=== PATIENT | female | born 1950 | race Caucasian/White ===

== ENCOUNTER 2017-07-11 06:32 | Inpatient (IN) | payer OTHER ==
[~2017-07-11] VITALS: Ht 167.6 cm; Wt 65.5 kg
[2017-07-11] VITALS (37 sets, daily range): BP systolic 64–144; BP diastolic 52–80; PULSE 90–126; RESP 18–32; TEMP 96.6–99.3; O2SAT 73–100
[~2017-07-11 06:32] MED LIST: BENA25TA8 PO; CYCL-36 PO; HYDR-3129 PO; HYDR-3366 PO; LORTA5 PO; PROC60TA PO; TETR500C2 PO; VIST50CA PO; WHEEMIS3 XX; Z.0.WALKERFRONT
[2017-07-11] MEDS ORDERED: SODIUM CHLOR 0.9% 1000 ML INJ 1,000 ML IV ONE ×2 (06:45→07:30)
--- NOTE | 2017-07-11 07:03 | PD ---
HPI Chief Complaint: Respiratory Distress Time Seen by Provider: 06:45 Travel History International Travel<30 days: No Contact w/Intl Traveler<30days: No Traveled to known affect area: No History of Present Illness HPI 66-year-old female with history of COPD, hypertension, presents to the ER today brought in by EMS after called stating that his was having respiratory issues. She was found in respiratory distress, GCS 6, and was intubated by EMS for airway protection. They state that she initially sounded like she had rales bilaterally. She is not able to give me any further history. They found that her blood pressure was 70 systolic and started her on IV fluids and Levophed. Modifying Factors: None Associated Signs & Symptoms: Respiratory distress, intubated, altered mental status, hypotension Risk Factors: COPD history PFSH Past Medical History Arthritis: Yes Anxiety: Yes Heart Rhythm Problems: No Cancer: No Cardiovascular Problems: Yes (HTN) Chest Pain: No Congestive Heart Failure: No COPD: Yes (BRONCHITIS) Diabetes: No Diminished Hearing: No Endocrine: No GERD: No Genitourinary: No Hiatal Hernia: No Hypertension: Yes Immune Disorder: No Musculoskeletal: Yes (back pain) Neurologic: No Psychiatric: No Reproductive: No Respiratory: No Thyroid Disease: No Ulcer: Yes Menopausal: Yes Past Surgical History Abdominal Surgery: No Cardiac Surgery: No Ear Surgery: No Endocrine Surgery: No Eye Surgery: No Genitourinary Surgery: No Gynecologic Surgery: Yes (hysterectomy) Hysterectomy: Yes Neurologic Surgery: Yes (BACK SURGERIES) Thoracic Surgery: No Other Surgery: Yes (TENS REMOVED) Social History Alcohol Use: No (RARE) Tobacco Use: Yes Substance Use: No Allergies-Medications (Allergen,Severity, Reaction): Coded Allergies: penicillin G (Unverified Allergy, Intermediate, Hives, 07/11/17) Sulfa (Sulfonamide Antibiotics) (Unverified Allergy, Unknown, 07/11/17) Reported Meds & Prescriptions Reported Meds & Active Scripts Active [place] (Hydrocodone-Acetaminophen) 10-325 Mg Tab 1 Tab PO Q6H PRN Flexeril (Cyclobenzaprine HCl) 10 Mg Tab 10 Mg PO Q12 [place] 10-325 mg (Hydrocodone-Acetaminophen 10-325 mg) 1 Tab Tab 1 Tab PO Q6H PRN Sumycin 500 Mg500 Mg 500 Mg Cap 500 Mg PO QID 7 Days Sumycin 500 Mg500 Mg 500 Mg Cap 500 Mg PO QID 7 Days [place] 5-325 mg (Hydrocodone-Acetaminophen 5-325 mg) 5 mg/325 mg Tab 1 Tab PO Q6HR PRN Wheelchair (Miscellaneous Medication) Mis 1 Units XX Walker Front Wheel (Z.0.walkerfront) Device 1 Unit Vistaril 50 MG CAP (Hydroxyzine Pamoate) 50 Mg Cap 50 Mg PO Q6 PRN Procardia Xl60 M1 60 Mg Tab 60 Mg PO DAILY Reported Benadryl 25 mg tab (Diphenhydramine HCl) 25 Mg Tab 25 Mg PO Q6H PRN Review of Systems ROS Limitations: Intubated Physical Exam Narrative GENERAL: Well-developed elderly white female patient who is intubated, in severe distress. SKIN: Focused skin assessment warm/dry. HEAD: Atraumatic. Normocephalic. EYES: Pupils equal and round. No scleral icterus. No injection or drainage. ENT: No nasal bleeding or discharge. Mucous membranes pink and moist. NECK: Trachea midline. No JVD. CARDIOVASCULAR: Regular rate and rhythm. No murmur appreciated. RESPIRATORY: Notable accessory muscle use. Decreased breath sounds throughout bilaterally, no wheezes or crackles identified. GASTROINTESTINAL: Abdomen soft, non-tender, nondistended. Hepatic and splenic margins not palpable. MUSCULOSKELETAL: No obvious deformities. No clubbing. No cyanosis. No edema. NEUROLOGICAL: Unresponsive. Intubated. PSYCHIATRIC: Unresponsive, intubated Data Data Last Documented VS Vital Signs Date Time Temp Pulse Resp B/P (MAP) Pulse Ox O2 Delivery O2 Flow Rate FiO2 07/11/17 06:57 18 07/11/17 06:57 95 Ventilator 07/11/17 06:57 126 100/68 (79) 07/11/17 06:37 96.6 07/11/17 06:33 100 Orders Orders Complete Blood Count With Diff (07/11/17 06:45) Comprehensive Metabolic Panel (07/11/17 06:45) Prothrombin Time / Inr (Pt) (07/11/17 06:45) Act Partial Throm Time (Ptt) (07/11/17 06:45) Lactic Acid Sepsis Protocol (07/11/17 06:45) Ckmb (Isoenzyme) Profile (07/11/17 06:45) Troponin I (07/11/17 06:45) Urinalysis - C+S If Indicated (07/11/17 06:45) Blood Culture (07/11/17 06:45) Chest, Single Ap (07/11/17 06:45) Arterial Blood Gas (Abg) (07/11/17 06:45) Blood Glucose (07/11/17 06:45) Ecg Monitoring (07/11/17 06:45) Iv Access Insert/Monitor (07/11/17 06:45) Oximetry (07/11/17 06:45) Oxygen Administration (07/11/17 06:45) Sodium Chlor 0.9% 1000 Ml Inj (Ns 1000 M (07/11/17 06:45) B-Type Natriuretic Peptide (07/11/17 06:45) Labs Laboratory Tests Test 07/11/17 06:50 07/11/17 07:10 White Blood Count 60.4 TH/MM3 Red Blood Count 3.77 MIL/MM3 Hemoglobin 9.8 GM/DL Hematocrit 31.0 % Mean Corpuscular Volume 82.4 FL Mean Corpuscular Hemoglobin 26.1 PG Mean Corpuscular Hemoglobin Concent 31.7 % Red Cell Distribution Width 18.0 % Platelet Count 807 TH/MM3 Mean Platelet Volume 7.7 FL Neutrophils (%) (Auto) 95.8 % Lymphocytes (%) (Auto) 2.4 % Monocytes (%) (Auto) 1.6 % Eosinophils (%) (Auto) 0.0 % Basophils (%) (Auto) 0.2 % Neutrophils # (Auto) 57.9 TH/MM3 Lymphocytes # (Auto) 1.4 TH/MM3 Monocytes # (Auto) 0.9 TH/MM3 Eosinophils # (Auto) 0.0 TH/MM3 Basophils # (Auto) 0.1 TH/MM3 CBC Comment AUTO DIFF MDM Medical Decision Making Medical Screen Exam Complete: Yes Emergency Medical Condition: Yes Medical Record Reviewed: Yes Interpretation(s) EKG shows sinus tachycardia at a heart rate 20 bpm with no signs of acute ST-T changes. Differential Diagnosis Respiratory distress, intubated, hypotension: Sepsis versus pneumonia versus COPD exacerbation versus CHF versus metabolic issues Narrative Course Considering hypotension, IV fluids was initiated in the ER 500 cc with further to follow as necessary. Chest x-ray was done to confirm ET tube and evaluated pulmonary status. Patient had been put on a respirator with PEEP. Initial lab work was ordered. Patient was reevaluated at 7:05 AM and blood pressure is improving, saturations are 100%. A review of patient's chest x-ray shows that ET tube is in place. There is bilateral fluffy basilar infiltrates and due to concerns of possible CHF and improved blood pressure, IV fluids were held after 600 cc. Case was discussed with Dr. Newberry who takes over the case. Aggregate critical care time was 25 minutes. Time to perform other separately billable procedures was not included in the critical care time. My time did not include minutes spent treating any other patients simultaneously or on activities that did not directly contribute to the patient's treatment. The services I provided to this patient were to treat and/or prevent clinically significant deterioration that could result in: Respiratory distress, respiratory arrest, septic shock, I provided critical care services requiring my management, as noted below: Chart data review, documentation time, medication orders and management, vital sign assessments/reviewing monitor data, ordering and reviewing lab tests, ordering and interpreting/reviewing x-rays and diagnostic studies, care of the patient and discussion of the patient with the admitting physicians. Procedures Procedure Narrative Due to difficulty of access and loss of access, left EJ was placed by me with 20 -gauge IV. Left EJ area was cleaned and prepped with ChloraPrep, patient was placed in a slight Trendelenburg position, and 20-gauge IV needle used to access. Patient tolerated procedure well. Diagnosis Primary Impression: Respiratory distress Additional Impression: Endotracheally intubated Admitting Information Admitting Physician Requests: Admit James Valdez MD Jul 11, 2017 07:03
[2017-07-11 07:08] LABS: AUTOMATED NEUTROPHIL # 57.9 TH/MM3 (1.8-7.7); BASOPHIL # 0.1 TH/MM3 (0-0.2); BASOPHIL % 0.2 % (0.0-2.0); LYMPH % 2.4 % (9.0-44.0); LYMPHOCYTE # 1.4 TH/MM3 (1.0-4.8); MEAN CELL VOLUME 82.4 FL (80.0-100.0); MEAN CORPUSCULAR HEMOGLOBIN 26.1 PG (27.0-34.0); MEAN CORPUSCULAR HGB CONC 31.7 % (32.0-36.0); MONO % 1.6 % (0.0-8.0); NEUT % 95.8 % (16.0-70.0); PLATELET COUNT 807 TH/MM3 (150-450); RED BLOOD COUNT 3.77 MIL/MM3 (4.00-5.30); WHITE BLOOD COUNT 60.4 TH/MM3 (4.0-11.0)
[2017-07-11 07:10] LABS: HEMO FLAGS AUTO DIFF
[2017-07-11 07:15] LABS: INTERNATIONAL NORMALIZED RATIO 1.5 RATIO; PROTHROMBIN TIME - PATIENT 16.6 SEC (9.8-11.6)
[2017-07-11] MEDS ORDERED: CEFEPIME INJ 2,000 MG in SODIUM CHLORIDE 0.9% INJ 100 ML IV STA (07:17)
[2017-07-11] MEDS ORDERED: AZITHROMYCIN INJ 500 MG in SODIUM CHLOR 0.9% 250 ML INJ 250 ML IV STA (07:17)
--- NOTE | 2017-07-11 07:20 | RADRPT ---
EXAM DATE/TIME: 07/11/2017 07:04 [facility] COMPARISON: CHEST SINGLE AP, November 07, 2015, 15:56. INDICATIONS : Post intubation. Short of breath. MEDICAL HISTORY : Non-responsive. SURGICAL HISTORY : Non-responsive. ENCOUNTER: Initial ACUITY: 1 day PAIN SCORE: Non-responsive. LOCATION: Bilateral chest FINDINGS: Portable AP view of the chest demonstrates a normal-sized cardiac silhouette. The endotracheal tube d istal tip is at the aortic knob level measuring approximately 6.3 cm from the karri. There is left l ower lung zone airspace consolidation and airspace consolidation in the right mid and lower lung zone . There is also a right pleural-based opacity inferiorly. No pneumothorax is visualized. There are ol d healed left rib fractures. Cervical spine hardware is partially visualized. CONCLUSION: 1. Endotracheal tube in appropriate position with tip measuring 6.3 cm from the karri. 2. Small right pleural effusion with bilateral lower lung zone predominant airspace consolidation, ri ght greater than left. Moustapha Mancuso MD on July 11, 2017 at 7:17 Board Certified Radiologist. This report was verified electronically.
[2017-07-11 07:24] LABS: ALT (GPT) 9 U/L (10-53); ANION GAP 16 MEQ/L (5-15); AST (GOT) 27 U/L (15-37); BICARBONATE 24.7 MEQ/L (21.0-32.0); BLOOD UREA NITROGEN 55 MG/DL (7-18); CHLORIDE 87 MEQ/L (98-107); GLOMERULAR FILTRATION RATE 19 ML/MIN (>89); POTASSIUM 4.4 MEQ/L (3.5-5.1); SODIUM (NA) 128 MEQ/L (136-145)
[2017-07-11 07:27] LABS: ALKALINE PHOSPHATASE 155 U/L (45-117); TOTAL BILIRUBIN ADULT 0.7 MG/DL (0.2-1.0)
[2017-07-11] MEDS ORDERED: LEVOFLOXACIN 500 MG PREMIX INJ 100 ML IV ONE (07:30)
[2017-07-11] MEDS ORDERED: VANCOMYCIN INJ 1,000 MG in SODIUM CHLOR 0.9% 250 ML INJ 250 ML IV ONE (07:30)
[2017-07-11] MEDS ORDERED: PIPERACIL-TAZO 2.25 GM PREMIX 50 ML IV ONE (07:30)
[2017-07-11 07:34] LABS: BACTERIA, URINE RARE /hpf; BLOOD, URINE NEG (NEG); GLUCOSE,URINE NEG (NEG); HYALINE CAST, URINE 2 /lpf (RARE); KETONE, URINE NEG (NEG); MUCUS URINE FEW /lpf (OCC); NITRITE,URINE NEG (NEG); SQUAMOUS EPITHELIAL CELL URINE 1 /hpf (0-5); URINE COLOR YELLOW (YELLW/STRAW)
[2017-07-11 07:35] LABS: COMMENT (UR) CATH-CULTURE IND; CULTURE IF INDICATED CATH CULTURE IND
[2017-07-11 07:40] LABS: BANDS 12 % (0-6); METAMYELOCYTES 3 % (0-1); MYELOCYTES 1 % (0-0); POLYS (SEG NEUTROPHILS) 75 % (16-70); WBC DIFF SAMPLE 100
--- NOTE | 2017-07-11 07:40 | PD ---
Data Data Last Documented VS Vital Signs Date Time Temp Pulse Resp B/P (MAP) Pulse Ox O2 Delivery O2 Flow Rate FiO2 07/11/17 08:05 112 18 96/58 (71) 100 Auto-Vent 07/11/17 07:52 100 07/11/17 06:37 96.6 Orders Orders Complete Blood Count With Diff (07/11/17 06:45) Comprehensive Metabolic Panel (07/11/17 06:45) Prothrombin Time / Inr (Pt) (07/11/17 06:45) Act Partial Throm Time (Ptt) (07/11/17 06:45) Lactic Acid Sepsis Protocol (07/11/17 06:45) Ckmb (Isoenzyme) Profile (07/11/17 06:45) Troponin I (07/11/17 06:45) Urinalysis - C+S If Indicated (07/11/17 06:45) Blood Culture (07/11/17 06:45) Chest, Single Ap (07/11/17 06:45) Arterial Blood Gas (Abg) (07/11/17 06:45) Blood Glucose (07/11/17 06:45) Ecg Monitoring (07/11/17 06:45) Iv Access Insert/Monitor (07/11/17 06:45) Oximetry (07/11/17 06:45) Oxygen Administration (07/11/17 06:45) Sodium Chlor 0.9% 1000 Ml Inj (Ns 1000 M (07/11/17 06:45) B-Type Natriuretic Peptide (07/11/17 06:45) Cefepime Inj (Maxipime Inj) (07/11/17 07:17) Azithromycin Inj (Zithromax Inj) (07/11/17 07:17) Ed Poc Ultrasound (07/11/17 ) Vancomycin Inj (Vancomycin Inj) (07/11/17 07:30) Levofloxacin 500 Mg Premix Inj (Levaquin (07/11/17 07:30) Piperacil-Tazo 2.25 Gm Premix (Zosyn 2.2 (07/11/17 07:30) Legionella Igg & Igm Abs (07/11/17 07:25) Sodium Chlor 0.9% 1000 Ml Inj (Ns 1000 M (07/11/17 07:30) Legionella Urinary Antigen (07/11/17 07:25) Urine Culture (07/11/17 07:10) Electrocardiogram (07/11/17 06:46) Pneumococcal Urinary Antigen (07/11/17 08:48) Legionella Urinary Antigen (07/11/17 08:48) Cbc No Diff, Includes Plts (07/12/17 05:00) Cbc No Diff, Includes Plts (07/13/17 05:00) Cbc No Diff, Includes Plts (07/14/17 05:00) Cbc No Diff, Includes Plts (07/15/17 05:00) Cbc No Diff, Includes Plts (07/16/17 05:00) Cbc No Diff, Includes Plts (07/17/17 05:00) Cbc No Diff, Includes Plts (07/18/17 05:00) Basic Metabolic Panel (Bmp) (07/12/17 05:00) Basic Metabolic Panel (Bmp) (07/13/17 05:00) Basic Metabolic Panel (Bmp) (07/14/17 05:00) Basic Metabolic Panel (Bmp) (07/15/17 05:00) Basic Metabolic Panel (Bmp) (07/16/17 05:00) Basic Metabolic Panel (Bmp) (07/17/17 05:00) Basic Metabolic Panel (Bmp) (07/18/17 05:00) Restraints Non-Violent ALEXIS.Q3H (07/11/17 08:48) Neurological Rass Scale ALEXIS.Q2H (07/11/17 08:48) Propofol 1000 Mg/100 Ml Inj (Diprivan 10 (07/11/17 09:00) RASS (07/11/17 08:48) ^ Infusion (07/11/17 08:48) Fentanyl Drip (Fentanyl Drip) (07/11/17 09:00) Neurological Rass Scale Q30MX2,Q2HX4,Q4H (07/11/17 08:48) Chlorhexidine 0.12% Liq (Peridex 0.12% L (07/11/17 20:00) Resp Ventilation- Volume (07/11/17 ) Ventilator Weaning Readiness ALEIXS.DAILY@0800 (07/11/17 08:48) Elevate Head Of Bed (07/11/17 08:48) Inpatient Certification (07/11/17 08:48) Bedside Glucose ALEXIS.Q6H (07/11/17 08:48) Blood Glucose Goal (Criteria) (07/11/17 08:48) Hypoglycemia 51 - 69 Mg/Dl (07/11/17 08:48) Hypoglycemia 50 Mg/Dl Or < (07/11/17 08:48) Notify Dr: Other (07/11/17 08:48) Dextrose 50% In Donal (Vial) Inj (D50w (Vi (07/11/17 09:00) Insulin Human Reg Supp Scale (Novolin R (07/11/17 12:00) Neuro Checks ALEXIS.Q1H (07/11/17 08:48) Albuterol-Ipratropium Neb (Duoneb Neb) (07/11/17 10:00) Albuterol-Ipratropium Neb (Duoneb Neb) (07/11/17 09:00) Chest, Single Ap (07/12/17 06:00) Urinary Catheter Management ALEXIS.Q1H (07/11/17 08:48) Tylenol (Acetaminophen) (07/11/17 08:48) Salicylates (Aspirin) (07/11/17 08:48) Alcohol (Ethanol) (07/11/17 08:48) Drug Screen,Ur W/Confirmation (07/11/17 08:48) Code Status (07/11/17 08:48) Vital Signs (Adult) ALEXIS.Q1H (07/11/17 08:48) Activity Bed Rest (07/11/17 08:48) Elevate Head Of Bed (07/11/17 08:48) ^ Orogastric Tube (07/11/17 08:48) Diet Npo (07/11/17 Breakfast) Sodium Chlor 0.9% 1000 Ml Inj (Ns 1000 M (07/11/17 08:48) Famotidine Inj (Pepcid Inj) (07/11/17 10:00) Ondansetron Inj (Zofran Inj) (07/11/17 09:00) Manager Hematology / Telemetry ALEXIS.Q8H (07/11/17 08:48) Scd Bilateral/Knee High ALEXIS.BID (07/11/17 08:48) ^ Initiate Protocol (07/11/17 08:48) Instruction (07/11/17 08:48) Misc Nursing Information (07/11/17 09:00) Chlorhexidine 2% Cloth (Chlorhexidine 2% (07/12/17 04:00) Chlorhexidine 2% Cloth (Chlorhexidine 2% (07/11/17 09:00) Mrsa Pcr Surveillance (07/11/17 08:48) Docusate Sodium-Senna (Pallavi-Colace) (07/11/17 10:00) Labs Laboratory Tests Test 07/11/17 06:50 07/11/17 07:10 07/11/17 07:33 07/11/17 08:25 White Blood Count 60.4 TH/MM3 Red Blood Count 3.77 MIL/MM3 Hemoglobin 9.8 GM/DL Hematocrit 31.0 % Mean Corpuscular Volume 82.4 FL Mean Corpuscular Hemoglobin 26.1 PG Mean Corpuscular Hemoglobin Concent 31.7 % Red Cell Distribution Width 18.0 % Platelet Count 807 TH/MM3 Mean Platelet Volume 7.7 FL Neutrophils (%) (Auto) 95.8 % Lymphocytes (%) (Auto) 2.4 % Monocytes (%) (Auto) 1.6 % Eosinophils (%) (Auto) 0.0 % Basophils (%) (Auto) 0.2 % Neutrophils # (Auto) 57.9 TH/MM3 Lymphocytes # (Auto) 1.4 TH/MM3 Monocytes # (Auto) 0.9 TH/MM3 Eosinophils # (Auto) 0.0 TH/MM3 Basophils # (Auto) 0.1 TH/MM3 CBC Comment AUTO DIFF Differential Total Cells Counted 100 Neutrophils % (Manual) 75 % Band Neutrophils % 12 % Lymphocytes % 5 % Monocytes % 4 % Neutrophils # (Manual) 55.0 TH/MM3 Metamyelocytes 3 % Myelocytes 1 % Nucleated Red Blood Cells 1 /100 WBC Differential Comment FINAL DIFF MANUAL Toxic Granulation 1+ Toxic Vacuolation PRESENT Platelet Estimate HIGH Platelet Morphology Comment NORMAL Polychromasia 2.2 % Prothrombin Time 16.6 SEC Prothromb Time International Ratio 1.5 RATIO Activated Partial Thromboplast Time 30.0 SEC Blood Urea Nitrogen 55 MG/DL Creatinine 2.57 MG/DL Random Glucose 116 MG/DL Total Protein 6.8 GM/DL Albumin 1.6 GM/DL Calcium Level 8.2 MG/DL Alkaline Phosphatase 155 U/L Aspartate Amino Transf (AST/SGOT) 27 U/L Alanine Aminotransferase (ALT/SGPT) 9 U/L Total Bilirubin 0.7 MG/DL Sodium Level 128 MEQ/L Potassium Level 4.4 MEQ/L Chloride Level 87 MEQ/L Carbon Dioxide Level 24.7 MEQ/L Anion Gap 16 MEQ/L Estimat Glomerular Filtration Rate 19 ML/MIN Lactic Acid Level 6.7 mmol/L Total Creatine Kinase 29 U/L Troponin I 0.19 NG/ML B-Type Natriuretic Peptide 397 PG/ML Urine Color YELLOW Urine Turbidity CLOUDY Urine pH 5.0 Urine Specific [place] 1.018 Urine Protein TRACE mg/dL Urine Glucose (UA) NEG mg/dL Urine Ketones NEG mg/dL Urine Occult Blood NEG Urine Nitrite NEG Urine Bilirubin NEG Urine Urobilinogen LESS THAN 2.0 MG/DL Urine Leukocyte Esterase NEG Urine RBC 1 /hpf Urine WBC 1 /hpf Urine Squamous Epithelial Cells 1 /hpf Urine Amorphous Sediment MANY Urine Bacteria RARE /hpf Urine Hyaline Casts 2 /lpf Urine Mucus FEW /lpf Microscopic Urinalysis Comment CATH-CULTURE IND Urine Opiates Screen POS Urine Barbiturates Screen NEG Urine Amphetamines Screen NEG Urine Benzodiazepines Screen NEG Urine Cocaine Screen NEG Urine Cannabinoids Screen NEG Blood Gas Puncture Site RT RADIAL Blood Gas Patient Temperature 98.6 Blood Gas HCO3 26 mmol/L Blood Gas Base Excess -0.5 mmol/L Blood Gas Oxygen Saturation 91 % Arterial Blood pH 7.24 Arterial Blood Partial Pressure CO2 64 mmHg Arterial Blood Partial Pressure O2 84 mmHG Arterial Blood Oxygen Content 11.4 Vol % Arterial Blood Carboxyhemoglobin 1.2 % Arterial Blood Methemoglobin 0.9 % Blood Gas Hemoglobin 8.8 G/DL Oxygen Delivery Device VENTILATOR Blood Gas Ventilator Setting PRVC 18/450/0.9IT/8+ Blood Gas Inspired Oxygen 100 % [facility] Supervised Visit with JORDAN: No Narrative Course Patient care assumed from Dr. Charles at 0700, this is a 66-year-old female I spoke to the to get most of her history, he states for the past few days she' s been having a lot of coughing congestion and this had problems of being "bronchial" in the past. She does have a history of smoking. He states that she awoke this morning with complaints that she could not breathe. According to Dr. Charles EMS arrived on scene and found the patient evidently GCS of 6 intubated her in route to the hospital. I arrived to find patient appearing toxic, she is intubated and mechanically ventilated. She is not on sedation and is a GCS of 3. She's had approximately 10 cc of urine output in the emergency department. I performed a bedside ultrasound showing the patient an EF probably greater than 65%. There is no right heart congestion, her IVC is open however collapses with inspiration. The patient did receive a liter of fluid per EMS, did receive an additional liter and a half of fluid in this emergency department. Initially she had orders for Rocephin and azithromycin, these were broadened to vancomycin and Zosyn and Levaquin after discussion with Dr. Tijerina. The patient's ABG shows combined respiratory failure with PCO2 of 63.5 a pH is 7.23 and a PO2 of 83.9 on 100% FiO2 a rate of 18 and a tidal volume of 450. The total line was increased to 500. Lactic acid of 6.7, white blood cell count of 60,000. Creatinine elevated to 2.67. Putting it altogether this patient has elements of septic shock likely from pneumonia. She's had very little urine output, blood pressure has been maintained with maps greater than 60 in the emergency department without pressors. This is a very critically ill patient. I conveyed this to the . Patient was again discussed with Dr. Tijerina who will admit to the hospital. At 09 30 the patient did have a status change and is now becoming more purposeful in her movements attempting to self extubate, blood pressure and heart rate are improving. She was given a dose of etomidate which did bring her blood pressure down but still maps are maintaining greater than 65. Her is now at the bedside and I informed him of the above conversations and my thought process. Critical Care Narrative Aggregate critical care time was 65 minutes. Time to perform other separately billable procedures was not included in the critical care time. My time did not include minutes spent treating any other patients simultaneously or on activities that did not directly contribute to the patient's treatment. The services I provided to this patient were to treat and/or prevent clinically significant deterioration that could result in: , disability, organ failure I provided critical care services requiring my management, as noted below: Chart data review, documentation time, medication orders and management, vital sign assessments/reviewing monitor data, ordering and reviewing lab tests, ordering and interpreting/reviewing x-rays and diagnostic studies, care of the patient and discussion of the patient with the admitting physicians. Procedures Procedure Narrative BEDSIDE ULTRASOUND: Views were obtained subxiphoid of the heart showing EF likely greater than 65%. Almost complete left ventricular collapse at end systole. No right ventricular dilation. IVC full but collapses completely during inspiration. Interpretation is likely fluid depletion secondary to severe sepsis. Diagnosis Primary Impression: Respiratory distress Additional Impression: Endotracheally intubated Admitting Information Admitting Physician Requests: Admit Condition: Critical Migel Newberry MD Jul 11, 2017 07:40
[2017-07-11 07:41] LABS: CORRECTED NUCLEATED RBC 1 /100 WBC (0-0); PLATELET ESTIMATE SMEAR HIGH (NORMAL); PLATELET MORPHOLOGY NORMAL (NORMAL); SCAN/DIFF FINAL DIFF MANUAL; TOXIC GRANULATION 1+ (NORMAL); TOXIC VACUOLATION PRESENT (NONE SEEN)
[2017-07-11 07:43] LABS: CREATINE KINASE 29 U/L (26-192); POLYCHROMASIA 2.2 % (0.0-1.9)
[2017-07-11 07:44] LABS: BLOOD GAS BASE EXCESS -0.5 mmol/L (-2-2); BLOOD GAS CARBOXYHEMOGLOBIN 1.2 % (0-4); BLOOD GAS HCO3 26 mmol/L (22-26); BLOOD GAS METHEMOGLOBIN 0.9 % (0-2); BLOOD GAS O2 HGB SATURATION 91 % (90-100); BLOOD GAS OXYGEN CONTENT 11.4 Vol % (12.0-20.0); BLOOD GAS PCO2 64 mmHg (38-42); BLOOD GAS PO2 84 mmHG (61-120); BLOOD GAS TOTAL HGB 8.8 G/DL (12.0-16.0); TEMP CORR TO 98.6
[2017-07-11 07:45] LABS: CRITICAL VALUE YES; DRAW SITE RT RADIAL; FIO2 100 %; NUMBER OF ARTERIAL PUNCTURES 2; OXYGEN DEVICE VENTILATOR; STAT YES; ULNAR PULSE PRESENT; VENT SETTINGS PRVC 18/450/0.9IT/8+
[2017-07-11 09:00] LABS: LACTIC ACID GHOST NOT REPORTABLE
[2017-07-11] MEDS ORDERED: MISCELLANEOUS NURSING INFORMATION XX SCH (09:00)
[2017-07-11] MEDS ORDERED: DEXTROSE 50% IN WATER 50 ML VIAL(D50) IV PUSH PRN (09:00)
[2017-07-11] MEDS ORDERED: Vancomycin Consult Pharmacy 1 EA OTHER SCH (09:00)
[2017-07-11] MEDS ORDERED: CHLORHEXIDINE GLUCONATE 2 % 1 PACK (2 CLOTHS) TOP PRN (09:00)
[2017-07-11] MEDS: fentaNYL DRIP 250 ML IV SCH (09:20)
[2017-07-11] MEDS: RESP: ALBUTEROL 2.5 MG/IPRATROPIUM 0.5 MG NEB (SCH) INH ×3 (09:23→19:21)
[2017-07-11] MEDS ORDERED: ETOMIDATE 20 MG/10 ML VIAL ONE (09:28)
[2017-07-11] MEDS ORDERED: ETOMIDATE 20 MG/10 ML VIAL IV PUSH ONE (09:30)
[2017-07-11] MEDS: SODIUM CHLOR 0.9% 1000 ML INJ 1,000 ML IV SCH ×2 (09:39→17:13)
[2017-07-11] MEDS: DOCUSATE SODIUM 50 MG/SENNA 8.6 MG TAB PO SCH ×2 (10:00→21:30)
[2017-07-11] MEDS: FAMOTIDINE 20 MG/2 ML VIAL IV PUSH SCH ×2 (10:17→21:30)
[2017-07-11 10:45] LABS: ACETAMINOPHEN LESS THAN 2.0 MCG/ML (10.0-30.0)
[2017-07-11 10:48] LABS: ALCOHOL LESS THAN 3 MG/DL (0-5)
[2017-07-11] MEDS: INSULIN NovoLIN REGULAR SUPPLEMENTAL SCALE SQ SCH ×2 (11:26→17:13)
--- NOTE | 2017-07-11 14:02 | EKG ---
Date Performed: 07/11/2017 Time Performed: 06:46:10 PTAGE: 66 years EKG: SINUS TACHYCARDIA ABNORMAL RHYTHM ECG PREVIOUS TRACING : 10/27/2015 11.38 Since prior tracing, sinus rate has increased. DOCTOR: Luis Saleem Interpretating Date/Time 07/11/2017 14:01:24
--- NOTE | 2017-07-11 16:19 | RADRPT ---
EXAM DATE/TIME: 07/11/2017 15:48 [facility] COMPARISON: CHEST SINGLE AP, July 11, 2017, 7:04. INDICATIONS : Central line placement. MEDICAL HISTORY : Hypertension. Chronic obstructive pulmonary disease. SURGICAL HISTORY : Hysterectomy. Lumbar surgery. ENCOUNTER: Subsequent ACUITY: 1 day PAIN SCORE: Non-responsive. LOCATION: Bilateral cranial FINDINGS: Single AP view of the chest. Endotracheal tube remains in place. Left subclavian central venous emma ter is now seen with the tip in the mid to distal SVC. Nasogastric tube is in place with the tip belo w the [id number] of the radiograph. Bilateral confluent pulmonary opacities again seen and unchang ed. No evidence of pneumothorax. CONCLUSION: Left subclavian central venous catheter and nasogastric tube now seen. No change in bilateral pulmona ry opacities. Nam Purcell MD on July 11, 2017 at 16:14 Board Certified Radiologist. This report was verified electronically.
[2017-07-11] MEDS: PIPERACIL-TAZO 2.25 GM PREMIX 50 ML IV SCH (17:12)
[2017-07-11] MEDS: PROPOFOL 1000 MG/100 ML INJ 100 ML IV SCH (18:46)
[2017-07-11] MEDS: NOREPINEPHRINE 4 MG/D5W 250 ML IV PRN (19:00)
--- NOTE | 2017-07-11 19:34 | HHI.HP ---
HPI Service Critical Care Medicine Primary Care Physician Unknown Admission Diagnosis Septic Shock, Hypoxic/Hypercapneic respiratory failure, PNA. Diagnosis: Travel History International Travel<30 Days: No Contact w/Intl Traveler <30 Da: No Traveled to Known Affected Are: No History of Present Illness Patient seen and examined in the AM around 07:30. Delayed note entry. This is a 66yF 66-year-old female with history of COPD, hypertension, presents to the ER today brought in by EMS after called stating that his was having respiratory issues. She was found in respiratory distress, GCS 6, and was intubated by EMS for airway protection. They state that she initially sounded like she had rales bilaterally. She is not able to give me any further history. They found that her blood pressure was 70 systolic and started her on IV fluids and Levophed. Modifying Factors: None Associated Signs & Symptoms: Respiratory distress, intubated, altered mental status, hypotension Risk Factors: COPD history Review of Systems ROS Limitations: Clinical Condition, Intubated, Altered Mental Status, Unresponsive Past Family Social History Allergies: Coded Allergies: penicillin G (Unverified Allergy, Intermediate, Hives, 07/11/17) Sulfa (Sulfonamide Antibiotics) (Unverified Allergy, Unknown, 07/11/17) Past Medical History Arthritis Anxiety Hypertension Bronchitis COPD Back pain Ulcers Past Surgical History Hysterectomy Back surgeries TENS unit removed from back Reported Medications Unknown unobtainable secondary to the clinical condition of the patient Active Ordered Medications See MAR Family History Unknown and unobtainable secondary to the clinical condition the patient Social History Rare EtOH use, positive tobacco use. Physical Exam Vital Signs Vital Signs Date Time Temp Pulse Resp B/P (MAP) Pulse Ox O2 Delivery O2 Flow Rate FiO2 07/11/17 18:00 116 07/11/17 16:00 117 07/11/17 16:00 98.5 117 27 83/52 (62) 97 Automatic Cuff 07/11/17 14:48 94 100 07/11/17 14:00 110 07/11/17 12:00 99.0 110 24 97/60 (72) 92 07/11/17 12:00 109 07/11/17 11:06 07/11/17 10:55 84 100 07/11/17 10:51 96 100 07/11/17 10:32 106 18 90/63 (72) 100 Auto-Vent 07/11/17 09:39 113 18 81/58 (66) 100 Auto-Vent 07/11/17 09:00 112 18 129/73 (91) 100 Auto-Vent 07/11/17 08:05 112 18 96/58 (71) 100 Auto-Vent 07/11/17 07:52 96 100 07/11/17 07:33 120 18 100 07/11/17 06:57 18 07/11/17 06:57 95 Ventilator 07/11/17 06:57 126 100/68 (79) 07/11/17 06:37 96.6 125 18 102/70 (81) 95 07/11/17 06:33 96 100 Physical Exam GENERAL: Middle-aged female, appears much older than stated age. Frail. Critically ill. HEENT: Normocephalic. Atraumatic. Pupils equal, round, reactive, conjugate. Mucous membranes are dry NECK: Trachea is midline. There is no JVD. CHEST: Endotracheal tube in place. PRVC. 100% FiO2. Coarse rales throughout all lung meek. CARDIOVASCULAR: Tachycardic rate, regular rhythm. Sinus by telemetry. No appreciable murmurs. ABDOMEN: Soft, nontender, nondistended. No guarding. MUSCULOSKELETAL: Pulses 2+. No peripheral edema. NEUROLOGICAL: RASS -4. Withdrawals to pain. Does not follow commands. No focal deficits. Laboratory Laboratory Tests Test 07/11/17 06:50 07/11/17 07:10 07/11/17 07:33 07/11/17 08:25 White Blood Count 60.4 Red Blood Count 3.77 Hemoglobin 9.8 Hematocrit 31.0 Mean Corpuscular Volume 82.4 Mean Corpuscular Hemoglobin 26.1 Mean Corpuscular Hemoglobin Concent 31.7 Red Cell Distribution Width 18.0 Platelet Count 807 Mean Platelet Volume 7.7 Neutrophils (%) (Auto) 95.8 Lymphocytes (%) (Auto) 2.4 Monocytes (%) (Auto) 1.6 Eosinophils (%) (Auto) 0.0 Basophils (%) (Auto) 0.2 Neutrophils # (Auto) 57.9 Lymphocytes # (Auto) 1.4 Monocytes # (Auto) 0.9 Eosinophils # (Auto) 0.0 Basophils # (Auto) 0.1 CBC Comment AUTO DIFF Differential Total Cells Counted 100 Neutrophils % (Manual) 75 Band Neutrophils % 12 Lymphocytes % 5 Monocytes % 4 Neutrophils # (Manual) 55.0 Metamyelocytes 3 Myelocytes 1 Nucleated Red Blood Cells 1 Differential Comment FINAL DIFF MANUAL Toxic Granulation 1+ Toxic Vacuolation PRESENT Platelet Estimate HIGH Platelet Morphology Comment NORMAL Polychromasia 2.2 Prothrombin Time 16.6 Prothromb Time International Ratio 1.5 Activated Partial Thromboplast Time 30.0 Blood Urea Nitrogen 55 Creatinine 2.57 Random Glucose 116 Total Protein 6.8 Albumin 1.6 Calcium Level 8.2 Alkaline Phosphatase 155 Aspartate Amino Transf (AST/SGOT) 27 Alanine Aminotransferase (ALT/SGPT) 9 Total Bilirubin 0.7 Sodium Level 128 Potassium Level 4.4 Chloride Level 87 Carbon Dioxide Level 24.7 Anion Gap 16 Estimat Glomerular Filtration Rate 19 Lactic Acid Level 6.7 Total Creatine Kinase 29 Troponin I 0.19 B-Type Natriuretic Peptide 397 Urine Color YELLOW Urine Turbidity CLOUDY Urine pH 5.0 Urine Specific [place] 1.018 Urine Protein TRACE Urine Glucose (UA) NEG Urine Ketones NEG Urine Occult Blood NEG Urine Nitrite NEG Urine Bilirubin NEG Urine Urobilinogen LESS THAN 2.0 Urine Leukocyte Esterase NEG Urine RBC 1 Urine WBC 1 Urine Squamous Epithelial Cells 1 Urine Amorphous Sediment MANY Urine Bacteria RARE Urine Hyaline Casts 2 Urine Mucus FEW Microscopic Urinalysis Comment CATH-CULTURE IND Urine Opiates Screen POS Urine Barbiturates Screen NEG Urine Amphetamines Screen NEG Urine Benzodiazepines Screen NEG Urine Cocaine Screen NEG Urine Cannabinoids Screen NEG Blood Gas Puncture Site RT RADIAL Blood Gas Patient Temperature 98.6 Blood Gas HCO3 26 Blood Gas Base Excess -0.5 Blood Gas Oxygen Saturation 91 Arterial Blood pH 7.24 Arterial Blood Partial Pressure CO2 64 Arterial Blood Partial Pressure O2 84 Arterial Blood Oxygen Content 11.4 Arterial Blood Carboxyhemoglobin 1.2 Arterial Blood Methemoglobin 0.9 Blood Gas Hemoglobin 8.8 Oxygen Delivery Device VENTILATOR Blood Gas Ventilator Setting PRVC 18/450/0.9IT/8+ Blood Gas Inspired Oxygen 100 Test 07/11/17 09:00 07/11/17 09:50 07/11/17 11:05 Lactic Acid Level 2.0 Salicylates Level 2.1 Acetaminophen Level LESS THAN 2.0 Ethyl Alcohol Level LESS THAN 3 Nasal Screen MRSA (PCR) MRSA DETECTED Date/Time Source Procedure Growth Status 07/11/17 06:55 Blood Peripheral Aerobic Blood Culture Pending Received 07/11/17 06:55 Blood Peripheral Anaerobic Blood Culture Pending Received 07/11/17 08:30 Urine Random Urine Legionella Antigen - Final PRESUMPTIVE NEGATIVE FOR LEGIONELLA P... Complete Result Diagram: 07/11/17 0650 07/11/17 0650 Imaging Last Impressions Chest X-Ray 07/11/17 0645 Signed Impressions: Service Date/Time: Tuesday, July 11, 2017 07:04 - CONCLUSION: 1. Endotracheal tube in appropriate position with tip measuring 6.3 cm from the karri. 2. Small right pleural effusion with bilateral lower lung zone predominant airspace consolidation, right greater than left. MD Elizabeth De Leon VTE Risk Assessment Capprice VTE Risk Assessment: Mod/High Risk (score >= 2) Caprini Risk Assessment Model Point Value = 1 Point Value = 2 Point Value = 3 Point Value = 5 Age 41-60 Minor surgery BMI > 25 kg/m2 Swollen legs Varicose veins or History of unexplained or recurrent spontaneous Oral contraceptives or hormone replacement Sepsis (< 1 month) Serious lung disease, including pneumonia (< 1 month) Abnormal pulmonary function Acute myocardial infarction Congestive heart failure (< 1 month) History of inflammatory bowel disease Medical patient at bed rest Age 61-74 Arthroscopic surgery Major open surgery (> 45 min) Laparoscopic surgery (> 45 min) Malignancy Confined to bed (> 72 hours) Immobilizing plaster cast Central venous access Age >= 75 History of VTE Family history of VTE Factor V Leiden Prothrombin [id number] Lupus anticoagulant Anticardiolipin antibodies Elevated serum homocysteine Heparin-induced thrombocytopenia Other congenital or acquired thrombophilia Stroke (< 1 month) Elective arthroplasty Hip, pelvis, or leg fracture Acute spinal cord injury (< 1 month) Prophylaxis Regimen Total Risk Factor Score Risk Level Prophylaxis Regimen 0-1 Low Early ambulation 2 Moderate Order ONE of the following: *Sequential Compression Device (SCD) *Heparin 5000 units SQ BID 3-4 Higher Order ONE of the following medications: *Heparin 5000 units SQ TID *Enoxaparin/Lovenox 40 mg SQ daily (WT < 150 kg, CrCl > 30 mL/min) *Enoxaparin/Lovenox 30 mg SQ daily (WT < 150 kg, CrCl > 10-29 mL/min) *Enoxaparin/Lovenox 30 mg SQ BID (WT < 150 kg, CrCl > 30 mL/min) AND/OR *Sequential Compression Device (SCD) 5 or more Highest Order ONE of the following medications: *Heparin 5000 units SQ TID (Preferred with Epidurals) *Enoxaparin/Lovenox 40 mg SQ daily (WT < 150 kg, CrCl > 30 mL/min) *Enoxaparin/Lovenox 30 mg SQ daily (WT < 150 kg, CrCl > 10-29 mL/min) *Enoxaparin/Lovenox 30 mg SQ BID (WT < 150 kg, CrCl > 30 mL/min) AND *Sequential Compression Device (SCD) Assessment and Plan Assessment and Plan Assessment: This is a 66-year-old female with history of COPD who presents with what appears to be severe bilateral community-acquired pneumonia and associated septic shock, acute hypoxic respiratory failure. Very critically ill this time. We'll continue ongoing fluid resuscitation. Admit to the ICU. We'll likely need norepinephrine and vasopressors. Monitor urine output closely. Follow-up cultures. Empirically cover with antibiotics. Plan by systems: Neurologic: Metabolic encephalopathy - propofol and fentanyl for goal RASS -2 - frequent neuro checks Respiratory: Acute hypoxic respiratory failure Severe bilateral community-acquired pneumonia COPD exacerbation - vent bundle, hob at 30 degrees, nebs - steroids - no SBT today given hypoxemia - wean fio2 for spo2 > 90% - abx as below Cardiovascular: Septic shock NSTEMI/Type II Demand Ischemia - trend troponins, unlikely to be ACS. clinically has sepsis syndrome - 1L LR bolus - NS mivf @ 125cc/hr - levophed for map goal > 65 mmHg Renal: Acute Kidney Injury -- Strict I/Os -- watch uop closely. no indication for emergent dialysis at this time. JOSE MIGUEL secondary to septic shock FEN/GI: Intravascular Hypovolemia Lactic Acidosis Acute protein calorie malnutrition- severe - NPO while in shock - trend lactates - NS @ 125cc/hr Heme/ID: Septic Shock Acute Community Acquired Pneumonia - Vancomycin with pharmacy dosing - Zosyn, renally dosed - Levaquin - f/u blood, sputum, urine cultures - urine legionella and pneumococcal ag negative 07/11 - daily cbc Endocrine: Hyperglycemia of Critical Illness -- SSI Prophylaxis: GI Prophylaxis Pepcid DVT Prophylaxis -- SCDs SQH Lines: will place art line and central line. Dispo: Admit to ICU. Remains Critically Ill. This patient remains critically ill with one or more organ systems which are or may become a threat to life. I have spent in excess of 64 minutes discontinuously in the care and management of this patient. This time is exclusive of procedures, and includes, but is not limited to, evaluation of the patient, review of the medical record, discussions with family, consultants, nursing staff, or respiratory therapy, and documentation in the medical record. Bunny Choi MD Jul 11, 2017 19:34
--- NOTE | 2017-07-11 19:35 | PD.PROCEDR ---
Procedure Note Procedure Central Line Procedure Note Left subclavian triple lumen catheter Diagnosis: Septic Shock Indications: Need for highly potent vasoactive substances Consent: Consent was obtained Anesthesia: Propofol IV, lidocaine locally Description of the Procedure: The patient was placed in the supine, mild- Trendelenburg position. The area was prepped and draped sterilely. A 19g needle was inserted under negative pressure aspiration and dark venous blood was obtained. A guidewire was inserted easily without resistance. A small incision was made using a #11 blade. Using a modified Seldinger technique, the dilator and 7 [place], 20 cm catheter were advanced over the guidewire without resistance. All ports were aspirated and flushed, and had brisk blood return. The line was secured at 20 cm at the skin using 2-0 silk interrupted sutures. A Biopatch and Transparent sterile dressing were applied. There were no immediate complications noted. There was minimal EBL. The patient tolerated the procedure well. Ultrasound guidance was not used for this procedure A Chest x-ray has been ordered. I personally performed the procedure. Bunny Choi MD Jul 11, 2017 19:35
--- NOTE | 2017-07-11 19:36 | PD.PROCEDR ---
Procedure Note Procedure Procedure: Arterial Line Placement Left radial arterial line placement Diagnosis: Septic shock Indications: Need for beat to beat hemodynamic monitoring Consent: Emergent Description of the Procedure: The left wrist was prepped and draped sterilely. 1% lidocaine was used for local anesthesia. The pulse was located and a needle was advanced into the artery. A 20 gauge, 12 cm catheter was advanced into the artery using a modified Seldinger technique. The catheter was sutured to the skin and a sterile dressing was applied. The catheter was connected to a pressure transducer and an arterial waveform was noted. There were no immediate complications noted. There was minimal EBL. I personally performed the procedure. Bunny Choi MD Jul 11, 2017 19:36
[2017-07-11] MEDS: CHLORHEXIDINE 0.12% (ORAL KIT) 15 ML CUP MT SCH (19:57)
[2017-07-11] MEDS: methylPREDNISolone SOD SUCC 125 MG/2 ML VIAL IV PUSH SCH (21:30)
[2017-07-11] MEDS: HEPARIN SODIUM - SQ 10,000 UNITS/ML VIAL SQ SCH (22:14)
[2017-07-12] VITALS (64 sets, daily range): BP systolic 58–147; BP diastolic 50–91; PULSE 55–97; RESP 20–28; TEMP 97.4–99.3; O2SAT 91–100
[2017-07-12] MEDS: PIPERACIL-TAZO 2.25 GM PREMIX 50 ML IV SCH ×3 (00:08→16:10)
[2017-07-12] MEDS: SODIUM CHLOR 0.9% 1000 ML INJ 1,000 ML IV SCH ×6 (02:13→23:36)
[2017-07-12] MEDS: NOREPINEPHRINE 4 MG/D5W 250 ML IV PRN ×2 (03:19→15:01)
[2017-07-12] MEDS: RESP: ALBUTEROL 2.5 MG/IPRATROPIUM 0.5 MG NEB (SCH) INH ×4 (03:51→21:11)
[2017-07-12] MEDS: CHLORHEXIDINE GLUCONATE 2 % 1 PACK (2 CLOTHS) TOP SCH (04:00)
[2017-07-12] MEDS: PROPOFOL 1000 MG/100 ML INJ 100 ML IV SCH ×4 (04:26→23:37)
--- NOTE | 2017-07-12 04:40 | RADRPT ---
EXAM DATE/TIME: 07/12/2017 03:33 [facility] COMPARISON: CHEST SINGLE AP, July 11, 2017, 15:48. INDICATIONS : Shortness of breath. MEDICAL HISTORY : Hypertension. Chronic obstructive pulmonary disease. SURGICAL HISTORY : Hysterectomy. Lumbar surgery ENCOUNTER: Subsequent ACUITY: 2 days PAIN SCORE: Non-responsive. LOCATION: Bilateral chest FINDINGS: Bibasilar and right upper lobe consolidation again noted, not significantly changed. There is loculat ed pleural fluid laterally the right lung base, also similar to before. No pneumothorax. Heart size stable, upper limits of normal. A Endotracheal tube tip is approximately 5 cm above the karri. Nasogastric tube courses into the stoma ch. There is a left subclavian central venous catheter again seen, tip in the superior vena cava. CONCLUSION: No significant change. Bilateral airspace disease and right loculated pleural fluid again noted. Moustapha Copeland MD on July 12, 2017 at 4:37 Board Certified Radiologist. This report was verified electronically.
[2017-07-12] MEDS: HEPARIN SODIUM - SQ 10,000 UNITS/ML VIAL SQ SCH ×3 (05:35→22:08)
[2017-07-12] MEDS: INSULIN NovoLIN REGULAR SUPPLEMENTAL SCALE SQ SCH ×4 (05:35→18:00)
[2017-07-12 05:39] LABS: HEMATOCRIT 25.9 % (35.0-46.0); MEAN CELL VOLUME 82.9 FL (80.0-100.0); MEAN CORPUSCULAR HEMOGLOBIN 25.7 PG (27.0-34.0); PLATELET COUNT 571 TH/MM3 (150-450); RED BLOOD COUNT 3.13 MIL/MM3 (4.00-5.30); RED CELL DISTRIBUTION WIDTH 18.6 % (11.6-17.2); WHITE BLOOD COUNT 39.3 TH/MM3 (4.0-11.0)
[2017-07-12 06:04] LABS: REVIEW FLAG FINAL
[2017-07-12 06:15] LABS: BICARBONATE 26.4 MEQ/L (21.0-32.0); POTASSIUM 4.2 MEQ/L (3.5-5.1)
[2017-07-12 06:35] LABS: CALCIUM-PROTEIN CORRECTED 7.9 MG/DL (8.5-10.1)
[2017-07-12] MEDS: FAMOTIDINE 20 MG/2 ML VIAL IV PUSH SCH ×2 (07:25→20:58)
[2017-07-12] MEDS: methylPREDNISolone SOD SUCC 125 MG/2 ML VIAL IV PUSH SCH ×2 (07:26→20:59)
[2017-07-12] MEDS: fentaNYL DRIP 250 ML IV SCH (07:27)
[2017-07-12] MEDS: DOCUSATE SODIUM 50 MG/SENNA 8.6 MG TAB PO SCH ×2 (07:28→20:58)
[2017-07-12] MEDS: CHLORHEXIDINE 0.12% (ORAL KIT) 15 ML CUP MT SCH ×2 (07:28→19:54)
[2017-07-12] MEDS ORDERED: VANCOMYCIN 1,000 MG/NS 250 ML IV ONE ×2 (09:00)
--- NOTE | 2017-07-12 16:41 | HHI.CCPN ---
Subjective Remarks/Hospital Course Subjective: 07/12: still on vasopressors. weaning fio2. remains in shock. mental status still poor, although now purposeful. renal function slowly improving, although remains severely oliguric. Objective Vital Signs Date Time Temp Pulse Resp B/P (MAP) Pulse Ox O2 Delivery O2 Flow Rate FiO2 07/12/17 15:22 95 40 07/12/17 15:01 63 113/60 07/12/17 12:00 98.2 07/12/17 04:00 Mechanical Ventilator 07/12/17 04:00 20 Intake and Output 07/12/17 07/12/17 07/12/17 07:59 15:59 23:59 Intake Total 90 ml 1650 ml Output Total 325 ml Balance -235 ml 1650 ml Result Diagram: 07/12/17 0405 07/12/17 0405 Other Results Microbiology Date/Time Source Procedure Growth Status 07/11/17 08:30 Urine Random Urine Legionella Antigen - Final PRESUMPTIVE NEGATIVE FOR LEGIONELLA P... Complete 07/11/17 07:10 Urine Catheterized Urine Legionella Antigen - Final PRESUMPTIVE NEGATIVE FOR LEGIONELLA P... Complete 07/11/17 07:10 Urine Catheterized Urine Streptococcus pneumoniae Antigen (M - Final PRESUMPTIVE NEGATIVE FOR STREPTOCOCCU... Complete 07/11/17 07:10 Urine Catheterized Urine Urine Culture - Final Lactobacillus Species Complete Imaging Last Impressions Chest X-Ray 07/11/17 0645 Signed Impressions: Service Date/Time: Tuesday, July 11, 2017 07:04 - CONCLUSION: 1. Endotracheal tube in appropriate position with tip measuring 6.3 cm from the karri. 2. Small right pleural effusion with bilateral lower lung zone predominant airspace consolidation, right greater than left. Moustapha Mancuso MD Objective Remarks GENERAL: Middle-aged female, appears much older than stated age. Frail. Critically ill. HEENT: Normocephalic. Atraumatic. Pupils equal, round, reactive, conjugate. Mucous membranes are dry NECK: Trachea is midline. There is no JVD. CHEST: Endotracheal tube in place. PRVC. 60% FiO2. Coarse rales throughout all lung meek. CARDIOVASCULAR: Tachycardic rate, regular rhythm. Sinus by telemetry. No appreciable murmurs. ABDOMEN: Soft, nontender, nondistended. No guarding. MUSCULOSKELETAL: Pulses 2+. No peripheral edema. NEUROLOGICAL: RASS -3. Withdrawals to pain. Purposeful. Does not follow commands. No focal deficits. A/P Assessment and Plan Assessment: This is a 66-year-old female with history of COPD who presents with what appears to be severe bilateral community-acquired pneumonia and associated septic shock, acute hypoxic respiratory failure. continues to be critically ill today in multiorgan system failure and persistent shock. We'll continue ongoing fluid resuscitation. Remain in the ICU. Monitor urine output closely. Follow-up cultures. Empirically cover with antibiotics. Plan by systems: Neurologic: Metabolic encephalopathy - propofol and fentanyl for goal RASS -2 - frequent neuro checks Respiratory: Acute hypoxic respiratory failure Severe bilateral community-acquired pneumonia COPD exacerbation - vent bundle, hob at 30 degrees, nebs - steroids - no SBT today given hypoxemia and poor mental status - wean fio2 for spo2 > 90% - abx as below Cardiovascular: Septic shock NSTEMI/Type II Demand Ischemia - trend troponins, unlikely to be ACS. clinically has sepsis syndrome - 1L LR bolus - NS mivf @ 125cc/hr - levophed for map goal > 65 mmHg Renal: Acute Kidney Injury -- Strict I/Os -- watch uop closely. no indication for emergent dialysis at this time. JOSE MIGUEL secondary to septic shock FEN/GI: Intravascular Hypovolemia Lactic Acidosis Acute protein calorie malnutrition- severe - NPO while in shock - trend lactates - NS @ 125cc/hr Heme/ID: Septic Shock Acute Community Acquired Pneumonia - Vancomycin with pharmacy dosing - Zosyn, renally dosed - Levaquin - f/u blood, sputum, urine cultures - urine legionella and pneumococcal ag negative 07/11 - daily cbc Endocrine: Hyperglycemia of Critical Illness -- SSI Prophylaxis: GI Prophylaxis Pepcid DVT Prophylaxis -- SCDs SQH Lines: 07/11 radial art line 07/11 SC tlc Dispo: remain in the ICU. This patient remains critically ill with one or more organ systems which are or may become a threat to life. I have spent in excess of 41 minutes discontinuously in the care and management of this patient. This time is exclusive of procedures, and includes, but is not limited to, evaluation of the patient, review of the medical record, discussions with family, consultants, nursing staff, or respiratory therapy, and documentation in the medical record. Bunny Choi MD Jul 12, 2017 16:41
[2017-07-13] VITALS (60 sets, daily range): BP systolic 79–148; BP diastolic 53–112; PULSE 46–80; RESP 18–33; TEMP 97.3–98.4; O2SAT 89–100
[2017-07-13] MEDS: PIPERACIL-TAZO 2.25 GM PREMIX 50 ML IV SCH ×3 (00:09→16:26)
[2017-07-13 03:26] LABS: HEMATOCRIT 26.2 % (35.0-46.0); MEAN CELL VOLUME 82.1 FL (80.0-100.0); MEAN CORPUSCULAR HGB CONC 31.7 % (32.0-36.0); PLATELET COUNT 561 TH/MM3 (150-450); RED BLOOD COUNT 3.19 MIL/MM3 (4.00-5.30); RED CELL DISTRIBUTION WIDTH 18.3 % (11.6-17.2); WHITE BLOOD COUNT 46.1 TH/MM3 (4.0-11.0)
[2017-07-13 03:27] LABS: REVIEW FLAG FINAL
[2017-07-13 03:39] LABS: BICARBONATE 24.4 MEQ/L (21.0-32.0); POTASSIUM 4.2 MEQ/L (3.5-5.1)
[2017-07-13] MEDS: RESP: ALBUTEROL 2.5 MG/IPRATROPIUM 0.5 MG NEB (SCH) INH ×4 (03:41→19:35)
[2017-07-13] MEDS: CHLORHEXIDINE GLUCONATE 2 % 1 PACK (2 CLOTHS) TOP SCH (04:00)
[2017-07-13] MEDS: INSULIN NovoLIN REGULAR SUPPLEMENTAL SCALE SQ SCH ×4 (06:00→17:56)
[2017-07-13] MEDS: HEPARIN SODIUM - SQ 10,000 UNITS/ML VIAL SQ SCH ×3 (06:50→22:15)
[2017-07-13] MEDS: fentaNYL DRIP 250 ML IV SCH ×2 (07:04→20:57)
[2017-07-13] MEDS: LEVOFLOXACIN 750 MG PREMIX INJ 150 ML IV SCH (08:31)
[2017-07-13] MEDS: SODIUM CHLOR 0.9% 1000 ML INJ 1,000 ML IV SCH (08:31)
[2017-07-13] MEDS: CHLORHEXIDINE 0.12% (ORAL KIT) 15 ML CUP MT SCH ×2 (08:32→20:57)
[2017-07-13] MEDS: methylPREDNISolone SOD SUCC 125 MG/2 ML VIAL IV PUSH SCH ×2 (08:32→20:57)
[2017-07-13] MEDS: DOCUSATE SODIUM 50 MG/SENNA 8.6 MG TAB PO SCH ×2 (08:32→20:57)
[2017-07-13] MEDS ORDERED: VANCOMYCIN 1,000 MG/NS 250 ML IV ONE ×2 (10:00)
[2017-07-13] MEDS: FAMOTIDINE 20 MG/2 ML VIAL IV PUSH SCH ×2 (10:18→20:57)
[2017-07-13] MEDS ORDERED: FUROSEMIDE 100 MG/10 ML VIAL IV PUSH ONE (11:30)
[2017-07-13] MEDS ORDERED: POTASSIUM PHOSPHATE MONOBASIC 500 MG TAB PO PRN (11:30)
[2017-07-13] MEDS ORDERED: POTASSIUM CHLOR 40 MEQ PREMIX 100 ML IV PRN ×2 (11:30)
[2017-07-13] MEDS ORDERED: POTASSIUM PHOSPHATE INJ 30 MMOL in SODIUM CHLOR 0.9% 250 ML INJ 250 ML IV PRN (11:30)
[2017-07-13] MEDS ORDERED: SODIUM PHOSPHATE INJ 30 MMOL in SODIUM CHLOR 0.9% 250 ML INJ 240 ML IV PRN (11:30)
[2017-07-13] MEDS ORDERED: MAGNESIUM OXIDE 400 MG TAB PO PRN (11:30)
[2017-07-13] MEDS ORDERED: POTASSIUM PHOSPHATE MONOBASIC 500 MG TAB PO/TUBE PRN (11:30)
[2017-07-13] MEDS ORDERED: POTASSIUM CHLOR 20 MEQ PREMIX 100 ML IV PRN ×2 (11:30)
[2017-07-13] MEDS ORDERED: MAGNESIUM SULFATE INJ 4 GM in SODIUM CHLORIDE 0.9% INJ 92 ML IV PRN (11:30)
[2017-07-13] MEDS ORDERED: MAGNESIUM SULFATE INJ 2 GM in SODIUM CHLORIDE 0.9% INJ 96 ML IV PRN (11:30)
--- NOTE | 2017-07-13 11:32 | HHI.CCPN ---
Subjective Remarks/Hospital Course Subjective: 07/12: still on vasopressors. weaning fio2. remains in shock. mental status still poor, although now purposeful. renal function slowly improving, although remains severely oliguric. 07/13: clinically starting to improve. off vasopressors. fio2 improving. cultures still no growth to date. renal function also improving. Objective Vital Signs Date Time Temp Pulse Resp B/P (MAP) Pulse Ox O2 Delivery O2 Flow Rate FiO2 07/13/17 11:23 100 40 07/13/17 10:00 70 07/13/17 08:00 97.5 19 125/78 (94) 79/61 (67) 07/13/17 07:00 Mechanical Ventilator Intake and Output 07/13/17 07/13/17 07/14/17 08:00 16:00 00:00 Intake Total 370 ml 200 ml Output Total 400 ml Balance -30 ml 200 ml Result Diagram: 07/13/17 0310 07/13/17 0310 Other Results Microbiology Date/Time Source Procedure Growth Status 07/11/17 08:30 Urine Random Urine Legionella Antigen - Final PRESUMPTIVE NEGATIVE FOR LEGIONELLA P... Complete 07/11/17 07:10 Urine Catheterized Urine Legionella Antigen - Final PRESUMPTIVE NEGATIVE FOR LEGIONELLA P... Complete 07/11/17 07:10 Urine Catheterized Urine Streptococcus pneumoniae Antigen (M - Final PRESUMPTIVE NEGATIVE FOR STREPTOCOCCU... Complete 07/11/17 07:10 Urine Catheterized Urine Urine Culture - Final Lactobacillus Species Complete Imaging Last Impressions Chest X-Ray 07/11/17 0645 Signed Impressions: Service Date/Time: Tuesday, July 11, 2017 07:04 - CONCLUSION: 1. Endotracheal tube in appropriate position with tip measuring 6.3 cm from the karri. 2. Small right pleural effusion with bilateral lower lung zone predominant airspace consolidation, right greater than left. Moustapha Mancuso MD Objective Remarks GENERAL: Middle-aged female, appears much older than stated age. Frail. Critically ill. HEENT: Normocephalic. Atraumatic. Pupils equal, round, reactive, conjugate. Mucous membranes are moist NECK: Trachea is midline. There is no JVD. CHEST: Endotracheal tube in place. PRVC. 40% FiO2. Coarse rales throughout all lung meek. CARDIOVASCULAR: Tachycardic rate, regular rhythm. Sinus by telemetry. No appreciable murmurs. ABDOMEN: Soft, nontender, nondistended. No guarding. MUSCULOSKELETAL: Pulses 2+. No peripheral edema. NEUROLOGICAL: RASS -3. Withdrawals to pain. Purposeful. Does not follow commands. No focal deficits. A/P Assessment and Plan Assessment: This is a 66-year-old female with history of COPD who presents with what appears to be severe bilateral community-acquired pneumonia and associated septic shock, acute hypoxic respiratory failure. End organs starting to improve. will pursue early forced diuresis given severe lung injury from pneumonia. almost ready for SBTs, but remains on high peep and given degree of lung injury from severe bilateral pneumonia, may likely need an additional 24h before SBTs are indicated. Plan by systems: Neurologic: Metabolic encephalopathy - propofol and fentanyl for goal RASS -2 - frequent neuro checks Respiratory: Acute hypoxic respiratory failure Severe bilateral community-acquired pneumonia COPD exacerbation - vent bundle, hob at 30 degrees, nebs - steroids - no SBT today given hypoxemia and poor mental status, will plan to start tomorrow if continuing to improve. - wean fio2 for spo2 > 90% - abx as below - start early forced diuresis with lasix 60 mg iv x 1. Cardiovascular: Septic shock- resolving. NSTEMI/Type II Demand Ischemia - unlikely to be ACS. clinically has sepsis syndrome - d/c mivf. - levophed for map goal > 65 mmHg Renal: Acute Kidney Injury- resolving. -- Strict I/Os -- watch uop closely. no indication for emergent dialysis at this time. JOSE MIGUEL secondary to septic shock FEN/GI: Intravascular Hypovolemia- resolved. Lactic Acidosis- resolved. Acute protein calorie malnutrition- severe - start jevity TF, nutrition consult for goal. - start ICU electrolyte protocol. Heme/ID: Septic Shock- resolving. Acute Community Acquired Pneumonia - Vancomycin with pharmacy dosing - Zosyn, renally dosed - Levaquin - f/u blood, sputum, urine cultures - urine legionella and pneumococcal ag negative 07/11 - daily cbc Endocrine: Hyperglycemia of Critical Illness -- SSI Prophylaxis: GI Prophylaxis Pepcid DVT Prophylaxis -- SCDs SQH Lines: 07/11 radial art line- d/c today. 07/11 SC tlc Dispo: remain in the ICU. Bunny Choi MD Jul 13, 2017 11:32
[2017-07-13] MEDS: PROPOFOL 1000 MG/100 ML INJ 100 ML IV SCH ×3 (11:34→22:18)
[2017-07-14] VITALS (43 sets, daily range): BP systolic 90–110; BP diastolic 56–67; PULSE 68–82; RESP 18–32; TEMP 97–98.5; O2SAT 89–100
[2017-07-14] MEDS: PIPERACIL-TAZO 2.25 GM PREMIX 50 ML IV SCH ×3 (00:42→17:23)
[2017-07-14] MEDS: INSULIN NovoLIN REGULAR SUPPLEMENTAL SCALE SQ SCH ×4 (01:14→17:52)
[2017-07-14] MEDS: CHLORHEXIDINE GLUCONATE 2 % 1 PACK (2 CLOTHS) TOP SCH (04:00)
[2017-07-14] MEDS: PROPOFOL 1000 MG/100 ML INJ 100 ML IV SCH ×5 (04:06→23:19)
[2017-07-14] MEDS: RESP: ALBUTEROL 2.5 MG/IPRATROPIUM 0.5 MG NEB (SCH) INH ×3 (04:28→20:15)
[2017-07-14 05:30] LABS: HEMATOCRIT 24.8 % (35.0-46.0); MEAN CELL VOLUME 82.8 FL (80.0-100.0); MEAN CORPUSCULAR HEMOGLOBIN 26.6 PG (27.0-34.0); MEAN CORPUSCULAR HGB CONC 32.1 % (32.0-36.0); PLATELET COUNT 443 TH/MM3 (150-450); RED BLOOD COUNT 2.99 MIL/MM3 (4.00-5.30); RED CELL DISTRIBUTION WIDTH 18.8 % (11.6-17.2); REVIEW FLAG FINAL; WHITE BLOOD COUNT 26.2 TH/MM3 (4.0-11.0)
[2017-07-14 05:53] LABS: BICARBONATE 26.2 MEQ/L (21.0-32.0); POTASSIUM 3.6 MEQ/L (3.5-5.1)
[2017-07-14] MEDS: HEPARIN SODIUM - SQ 10,000 UNITS/ML VIAL SQ SCH ×3 (07:36→21:20)
[2017-07-14] MEDS: CHLORHEXIDINE 0.12% (ORAL KIT) 15 ML CUP MT SCH ×2 (08:00→21:20)
[2017-07-14] MEDS: DOCUSATE SODIUM 50 MG/SENNA 8.6 MG TAB PO SCH ×2 (08:36→21:20)
[2017-07-14] MEDS: methylPREDNISolone SOD SUCC 125 MG/2 ML VIAL IV PUSH SCH ×2 (08:36→21:19)
[2017-07-14] MEDS: FAMOTIDINE 20 MG/2 ML VIAL IV PUSH SCH ×2 (08:36→21:20)
[2017-07-14] MEDS: fentaNYL DRIP 250 ML IV SCH ×2 (10:19→23:19)
[2017-07-14] MEDS ORDERED: VANCOMYCIN 1,000 MG/NS 250 ML IV SCH ×2 (12:00)
--- NOTE | 2017-07-14 16:36 | HHI.CCPN ---
Subjective Remarks/Hospital Course 66-year-old female with history of COPD, hypertension, presents to the ER tbrought in by EMS after called stating that his was having respiratory issues. She was found in respiratory distress, GCS 6, and was intubated by EMS for airway protection. They state that she initially sounded like she had rales bilaterally. She is not able to give me any further history. They found that her blood pressure was 70 systolic and started her on IV fluids and Levophed. Subjective: 07/12: still on vasopressors. weaning fio2. remains in shock. mental status still poor, although now purposeful. renal function slowly improving, although remains severely oliguric. 07/13: clinically starting to improve. off vasopressors. fio2 improving. cultures still no growth to date. renal function also improving. 07/14: Remains intubated sedated, encephalopathic. Failed SBT due to tachypnea. UO 2.3 L in 24 hours. On sedation hold do not follow commands. Get CT chest to evaluate loculated effusion Objective Vital Signs Date Time Temp Pulse Resp B/P (MAP) Pulse Ox O2 Delivery O2 Flow Rate FiO2 07/14/17 14:00 77 07/14/17 12:00 98.1 23 97/57 (70) 100 07/14/17 12:00 40 07/14/17 07:00 Mechanical Ventilator Intake and Output 07/14/17 07/14/17 07/15/17 08:00 16:00 00:00 Intake Total 919 ml 770 ml Output Total 900 ml Balance 19 ml 770 ml Result Diagram: 07/14/17 0420 07/14/17 0420 Other Results Microbiology Date/Time Source Procedure Growth Status 07/11/17 19:30 Sputum Endotracheal Gram Stain - Final Complete 07/11/17 19:30 Sputum Culture - Final Staphylococcus Aureus Complete Imaging Last Impressions Chest X-Ray 07/11/17 0627 Signed Impressions: Service Date/Time: Tuesday, July 11, 2017 07:04 - CONCLUSION: 1. Endotracheal tube in appropriate position with tip measuring 6.3 cm from the karri. 2. Small right pleural effusion with bilateral lower lung zone predominant airspace consolidation, right greater than left. Moustapha Mancuso MD Objective Remarks GENERAL: Middle-aged female, appears older than stated age. Frail. Critically ill. HEENT: Normocephalic. Atraumatic. Pupils equal, round, reactive, conjugate. Mucous membranes are moist NECK: Trachea is midline. There is no JVD. CHEST: Endotracheal tube in place. PRVC. 40% FiO2. Coarse rales throughout all lung meek. CARDIOVASCULAR: Tachycardic rate, regular rhythm. Sinus by telemetry. No appreciable murmurs. ABDOMEN: Soft, nontender, nondistended. No guarding. MUSCULOSKELETAL: Pulses 2+. No peripheral edema. NEUROLOGICAL: Withdrawals to pain. Purposeful. Does not follow commands. No focal deficits. A/P Assessment and Plan Assessment: This is a 66-year-old female with history of COPD who presents with what appears to be severe bilateral community-acquired pneumonia and associated septic shock, acute hypoxic respiratory failure. End organs starting to improve. will pursue early forced diuresis given severe lung injury from pneumonia. Failed SBT today. Check CT chest to rule out loculated effusion, may need diagnostic thoracentesis Plan by systems: Neurologic: Metabolic encephalopathy - Propofol and fentanyl for goal RASS -2 - Daily sedation vacation - frequent neuro checks Respiratory: Acute hypoxic respiratory failure Severe bilateral community-acquired pneumonia COPD exacerbation - vent bundle, hob at 30 degrees, nebs - steroids,ABX - Failed SBT today due to tachypnea - wean fio2 for spo2 > 90% - Diuresis with lasix 60 mg iv x 1 given 07/13 Cardiovascular: Septic shock- resolving. NSTEMI/Type II Demand Ischemia - unlikely to be ACS. clinically has sepsis syndrome - Levophed for map goal > 65 mmHg, now off Renal: Acute Kidney Injury- resolving. -- Strict I/Os -- watch UOP closely. no indication for emergent dialysis at this time. JOSE MIGUEL secondary to septic shock FEN/GI: Intravascular Hypovolemia- resolved. Lactic Acidosis- resolved. Acute protein calorie malnutrition- severe - Jevity TF, nutrition consult for goal. - ICU electrolyte protocol. Heme/ID: Septic Shock- resolving. Acute Community Acquired Pneumonia - Vancomycin with pharmacy dosing-DC today - Zosyn, renally dosed - Levaquin - f/u blood, sputum, urine cultures. sputum MSSA, urine lactobacillus - urine legionella and pneumococcal ag negative 07/11 - CT chest today to evaluate loculated effusion. May need diagnostic/ therapeutic tap Endocrine: Hyperglycemia of Critical Illness -- SSI Prophylaxis: GI Prophylaxis Pepcid DVT Prophylaxis -- SCDs SQH Lines: 07/11 radial art line 07/11 SC tlc Dispo: remain in the ICU. CCT 32 min Nika Gerard MD Jul 14, 2017 16:36
--- NOTE | 2017-07-14 17:57 | PD.PROCEDR ---
Procedure Note Procedure THORACOSTOMY (CHEST TUBE) PLACEMENT Indication: Large probably parapneumonic effusion A time-out was completed verifying correct patient, procedure, site, positioning , and special equipment if applicable. The patient was positioned appropriately for chest tube placement. The patients right chest insertion site was marked with US and was prepped and draped in sterile fashion. 1% Lidocaine was used to anesthetize the surrounding skin area. A skin fiona was made with scalpel in the mid-axillary line. Introducer needle placed in the pleural space and yellow white cloudy fluid aspirated. A guidewire was placed and the track was serially dilated. Using Seldinger technique, 12 F pigtail chest tube was placed. The chest tube was sutured securely to the skin and a sterile dressing applied. A pleurevac was attached to the chest tube and a chest x-ray obtained. Initial output 700 ml yellow white cloudy fluid. CXR pending Estimated Blood Loss: 1 ml The patient tolerated the procedure well and there were no complications. Nika Gerard MD Jul 14, 2017 17:57
--- NOTE | 2017-07-14 18:27 | RADRPT ---
EXAM DATE/TIME: 07/14/2017 18:02 [facility] COMPARISON: CHEST SINGLE AP, July 12, 2017, 3:33. INDICATIONS : Post right sided chest tube placement. MEDICAL HISTORY : Hypertension. Chronic obstructive pulmonary disease. SURGICAL HISTORY : Hysterectomy. Lumbar surgery. ENCOUNTER: Subsequent ACUITY: 4 - 6 days PAIN SCORE: Non-responsive. LOCATION: Bilateral chest FINDINGS: Bibasilar and right upper lobe consolidation again noted, both sides modestly improved. Decreased rig ht pleural effusion after chest tube placement. The chest tube is seen laterally at the right base. N o evidence of pneumothorax. Heart size stable, upper limits of normal. Endotracheal tube tip is approximately 5 cm above the karri. Nasogastric tube tip is in the esophagu s a few centimeters below the karri.. There is a left subclavian central venous catheter again seen, tip in the superior vena cava. CONCLUSION: 1. Right base chest tube placed with near complete resolution of the previously seen laterally locula june pleural effusion. 2. Right upper lobe and bibasilar consolidation slightly improved. 3. Lines and tubes as above. Nasogastric tube tip is in the midesophagus. Moustapha Copeland MD on July 14, 2017 at 18:22 Board Certified Radiologist. This report was verified electronically.
[2017-07-14 20:52] LABS: TOTAL PROTEIN,PLEURAL FLUID 3.8 GM/DL
[2017-07-14 21:46] LABS: PLEURAL FLUID LYMPHS 4 %
[2017-07-15] VITALS (20 sets, daily range): BP systolic 109–128; BP diastolic 58–75; PULSE 77–104; RESP 24–29; TEMP 97.7–98.5; O2SAT 26–100
[2017-07-15] MEDS: PIPERACIL-TAZO 2.25 GM PREMIX 50 ML IV SCH (00:35)
[2017-07-15] MEDS: RESP: ALBUTEROL 2.5 MG/IPRATROPIUM 0.5 MG NEB (SCH) INH ×4 (03:05→19:52)
[2017-07-15] MEDS: CHLORHEXIDINE GLUCONATE 2 % 1 PACK (2 CLOTHS) TOP SCH (04:00)
[2017-07-15] MEDS: INSULIN NovoLIN REGULAR SUPPLEMENTAL SCALE SQ SCH ×4 (06:00→17:02)
[2017-07-15 06:06] LABS: BASOPHIL % 0.2 % (0.0-2.0); HEMATOCRIT 25.2 % (35.0-46.0); LYMPH % 6.1 % (9.0-44.0); MEAN CELL VOLUME 81.9 FL (80.0-100.0); MEAN CORPUSCULAR HEMOGLOBIN 26.4 PG (27.0-34.0); MEAN CORPUSCULAR HGB CONC 32.3 % (32.0-36.0); MONO % 2.8 % (0.0-8.0); NEUT % 90.9 % (16.0-70.0); PLATELET COUNT 402 TH/MM3 (150-450); RED BLOOD COUNT 3.08 MIL/MM3 (4.00-5.30); RED CELL DISTRIBUTION WIDTH 18.1 % (11.6-17.2); WHITE BLOOD COUNT 16.5 TH/MM3 (4.0-11.0)
[2017-07-15] MEDS: HEPARIN SODIUM - SQ 10,000 UNITS/ML VIAL SQ SCH (06:15)
[2017-07-15] MEDS: PROPOFOL 1000 MG/100 ML INJ 100 ML IV SCH ×4 (06:15→20:02)
--- NOTE | 2017-07-15 06:17 | RADRPT ---
EXAM DATE/TIME: 07/15/2017 04:52 [facility] COMPARISON: CHEST SINGLE AP, July 14, 2017, 18:02. INDICATIONS : Shortness of breath. MEDICAL HISTORY : Hypertension. Chronic obstructive pulmonary disease. SURGICAL HISTORY : None. ENCOUNTER: Subsequent ACUITY: 4 - 6 days PAIN SCORE: Non-responsive. LOCATION: Bilateral chest FINDINGS: A single view of the chest demonstrates endotracheal tube in good position. Nasogastric tube enters s tomach. Left central line in superior vena cava. Bilateral mostly basilar airspace consolidation and small effusions. Small caliber right chest tube. CONCLUSION: 1. Basilar airspace consolidation and right upper lobe opacity similar to prior exam. Small caliber r ight chest tube without pneumothorax. Support apparatus in good position. Chas Sanches MD on July 15, 2017 at 6:14 Board Certified Radiologist. This report was verified electronically.
[2017-07-15 06:33] LABS: HEMO FLAGS AUTO DIFF
[2017-07-15 06:48] LABS: BICARBONATE 25.8 MEQ/L (21.0-32.0); CALCIUM-PROTEIN CORRECTED 7.9 MG/DL (8.5-10.1); POTASSIUM 3.5 MEQ/L (3.5-5.1); TOTAL BILIRUBIN ADULT 0.3 MG/DL (0.2-1.0)
--- NOTE | 2017-07-15 07:27 | HHI.CCPN ---
Subjective Remarks/Hospital Course 66-year-old female with history of COPD, hypertension, presents to the ER tbrought in by EMS after called stating that his was having respiratory issues. She was found in respiratory distress, GCS 6, and was intubated by EMS for airway protection. They state that she initially sounded like she had rales bilaterally. She is not able to give me any further history. They found that her blood pressure was 70 systolic and started her on IV fluids and Levophed. Subjective: 07/12: still on vasopressors. weaning fio2. remains in shock. mental status still poor, although now purposeful. renal function slowly improving, although remains severely oliguric. 07/13: clinically starting to improve. off vasopressors. fio2 improving. cultures still no growth to date. renal function also improving. 07/14: Remains intubated sedated, encephalopathic. Failed SBT due to tachypnea. UO 2.3 L in 24 hours. On sedation hold do not follow commands. Get CT chest to evaluate loculated effusion 07/15: R pigtail chest tube placed yesterday and 07/14/17. Fluid had appearance of early empyema (yellow cloudy). Pleural fluid studies shows WBC count of 32, 227 with 93% neutrophils. Fluid LDH is 2587 (serum LDH 143) fluid glucose is 44 (serum 158). CTS and ID consulted Objective Vital Signs Date Time Temp Pulse Resp B/P (MAP) Pulse Ox O2 Delivery O2 Flow Rate FiO2 07/15/17 06:00 80 07/15/17 04:02 96 40 07/15/17 00:00 97.7 24 115/67 (83) 07/14/17 19:00 Mechanical Ventilator Result Diagram: 07/15/17 0535 07/15/17 0535 Imaging Last Impressions Chest X-Ray 07/11/17 0645 Signed Impressions: Service Date/Time: Tuesday, July 11, 2017 07:04 - CONCLUSION: 1. Endotracheal tube in appropriate position with tip measuring 6.3 cm from the karri. 2. Small right pleural effusion with bilateral lower lung zone predominant airspace consolidation, right greater than left. Moustapha Mancuso MD Objective Remarks GENERAL: Middle-aged female, appears older than stated age. Frail. Critically ill. HEENT: Normocephalic. Atraumatic. Pupils equal, round, reactive, conjugate. Mucous membranes are moist NECK: Trachea is midline. There is no JVD. CHEST: Endotracheal tube in place. PRVC. 40% FiO2. Coarse rales throughout all lung meek. R pigtail chest tube with approximately 800 ml yellow cloudy fluid CARDIOVASCULAR: Tachycardic rate, regular rhythm. Sinus by telemetry. No appreciable murmurs. ABDOMEN: Soft, nontender, nondistended. No guarding. MUSCULOSKELETAL: Pulses 2+. No peripheral edema. NEUROLOGICAL: Withdrawals to pain. Purposeful. Does not follow commands. No focal deficits. A/P Assessment and Plan Assessment: This is a 66-year-old female with history of COPD who presents with what appears to be severe bilateral community-acquired pneumonia and associated septic shock, acute hypoxic respiratory failure. Pleural fluid studies concerning for empyema. CT surgery and infectious disease was consulted. End organs starting to improve. Check CT chest to evaluate for residual effusion Plan by systems: Neurologic: Metabolic encephalopathy - Propofol and fentanyl for goal RASS -2 - Daily sedation vacation - frequent neuro checks Respiratory: Acute hypoxic respiratory failure Right sided empyema Severe bilateral community-acquired pneumonia COPD exacerbation - R pigtail chest tube placed 07/14/17. Fluid had appearance of early empyema ( yellow cloudy). - Pleural fluid studies shows WBC count of 32,227 with 93% neutrophils. Fluid LDH is 2587 (serum LDH 143) fluid glucose is 44 (serum 158). - CTS and ID consulted, Ct chest to evaluate for residual effusion - vent bundle, hob at 30 degrees, nebs - steroids, see ID section for ABX - Failed SBT yesterday due to tachypnea - wean fio2 for spo2 > 90% - Diuresis with lasix 60 mg iv x 1 given 07/13 Cardiovascular: Septic shock- resolved. NSTEMI/Type II Demand Ischemia - Unlikely to be ACS. clinically has sepsis syndrome - Off Levophed Renal: Acute Kidney Injury- resolving. - Strict I/Os - watch UOP closely. no indication for emergent dialysis at this time. JOSE MIGUEL secondary to septic shock - Creat improving 1.1 today. UO 1050 ml in 24 hours - Give additional dose of 40 mg IV Lasix due to positive fluid balance FEN/GI: Intravascular Hypovolemia- resolved. Lactic Acidosis- resolved. Acute protein calorie malnutrition- severe - Jevity TF, nutrition consult for goal. - ICU electrolyte protocol. Heme/ID: Acute Community Acquired Pneumonia with Empyema Septic Shock- resolving. UTI with lactobacillus - DC Vanc and Zosyn. Start Rocephin 2GM IV daily. Continue Levaquin - Pleural fluid appearance yellow cloudy WBC 32,227 with 93% neutrophils. Fluid LDH is 2587 (serum LDH 143) fluid glucose is 44 (serum 158). - ID CTS consulted - Pertinent cultures. sputum 07/11 MSSA , urine 07/11 lactobacillus - urine legionella and pneumococcal ag negative 07/11 Endocrine: Hyperglycemia of Critical Illness -- SSI Prophylaxis: GI Prophylaxis Pepcid DVT Prophylaxis -- SCDs SQH Lines: 07/11 radial art line-DCd 07/14 07/11 SC tlc Dispo: Continue ICU. CCT 35 min. Updated at the bedside Nika Gerard MD Jul 15, 2017 07:27
[2017-07-15 08:02] LABS: CORRECTED NUCLEATED RBC 2 /100 WBC (0-0); MYELOCYTES 2 % (0-0); NEUTROPHIL # MANUAL DIFF 14.9 TH/MM3 (1.8-7.7); POLYS (SEG NEUTROPHILS) 88 % (16-70); WBC DIFF SAMPLE 100
[2017-07-15 08:03] LABS: PLATELET ESTIMATE SMEAR NORMAL (NORMAL); PLATELET MORPHOLOGY NORMAL (NORMAL); SCAN/DIFF FINAL DIFF MANUAL
[2017-07-15] MEDS: cefTRIAXone INJ 2,000 MG in SODIUM CHLORIDE 0.9% INJ 100 ML IV SCH (08:33)
[2017-07-15] MEDS: LEVOFLOXACIN 750 MG PREMIX INJ 150 ML IV SCH (08:33)
[2017-07-15] MEDS: FAMOTIDINE 20 MG/2 ML VIAL IV PUSH SCH ×2 (08:34→20:02)
[2017-07-15] MEDS: DOCUSATE SODIUM 50 MG/SENNA 8.6 MG TAB PO SCH ×2 (08:34→20:02)
[2017-07-15] MEDS: CHLORHEXIDINE 0.12% (ORAL KIT) 15 ML CUP MT SCH ×2 (08:34→20:01)
[2017-07-15] MEDS: methylPREDNISolone SOD SUCC 125 MG/2 ML VIAL IV PUSH SCH ×2 (08:34→20:02)
--- NOTE | 2017-07-15 11:29 | PD.CONS ---
History of Present Illness Service Infectious disease Consult Requested By Dr. Chuy Gerard Reason for Consult Evaluate patient with empyema Primary Care Physician Unknown Diagnoses: History of Present Illness Patient seen and examined. Records reviewed. Patient is a 66-year-old female, brought into the hospital for evaluation of respiratory distress. apparently noted increasing shortness of breath. EMS was called, and now she was in respiratory distress, and was intubated. In the ER she was hypotensive, and was given fluid resuscitation and pressors. Patient has remained on the vent. She is afebrile. Her initial WBC was 60, 000. Her creatinine was also elevated. Her chest x-ray showed bilateral infiltrates, and she eventually had placement of a chest tube on the right side yesterday. Fluid analysis is showing empyema. Patient's hemodynamics have improved, and she is off pressors. Her creatinine is also improving. Her WBC is also improving. A sputum culture was done and it has MSSA. Legionella and pneumococcal antigen are negative. Infectious disease consultation has been requested to evaluate the patient. Review of Systems ROS Limitations: Clinical Condition, Intubated Past Family Social History Allergies: Coded Allergies: penicillin G (Unverified Allergy, Intermediate, Hives, 07/11/17) Sulfa (Sulfonamide Antibiotics) (Unverified Allergy, Unknown, 07/11/17) Past Medical History Arthritis Anxiety Hypertension Bronchitis COPD Back pain Ulcers Past Surgical History Hysterectomy Back surgeries TENS unit removed from back Active Ordered Medications Albuterol Rocephin Pepcid Fentanyl Heparin Insulin Levaquin Magnesium Solu-Medrol Zofran Potassium Diprivan Pallavi-Colace Family History Not known Social History Patient is a smoker Rare EtOH No illicit drugs Physical Exam Vital Signs Vital Signs Date Time Temp Pulse Resp B/P (MAP) Pulse Ox O2 Delivery O2 Flow Rate FiO2 07/15/17 10:55 99 40 07/15/17 10:00 91 07/15/17 08:39 98 40 07/15/17 08:00 98.0 83 29 109/58 (75) 96 07/15/17 08:00 40 07/15/17 08:00 83 07/15/17 07:00 100 Mechanical Ventilator 40 07/15/17 06:00 80 07/15/17 04:02 96 40 07/15/17 04:00 40 07/15/17 04:00 98.1 81 24 110/67 (81) 95 07/15/17 04:00 81 07/15/17 02:00 83 07/15/17 01:30 98 40 07/15/17 00:00 97.7 77 24 115/67 (83) 98 07/15/17 00:00 40 07/15/17 00:00 77 07/14/17 22:00 72 07/14/17 21:49 99 40 07/14/17 20:15 99 40 07/14/17 20:00 40 07/14/17 20:00 72 07/14/17 20:00 98.4 72 21 110/67 (81) 99 07/14/17 19:00 100 Mechanical Ventilator 40 07/14/17 18:00 72 07/14/17 17:34 97 40 07/14/17 16:05 40 07/14/17 16:00 97.0 73 22 91/57 (68) 100 07/14/17 16:00 73 07/14/17 16:00 40 07/14/17 14:00 77 07/14/17 12:00 98.1 71 23 97/57 (70) 100 07/14/17 12:00 71 07/14/17 12:00 40 07/14/17 11:37 100 40 Physical Exam GENERAL: Patient is a well-nourished, well-developed female, sedated on the vent, not in respiratory distress. SKIN: Cool and dry, has mottling in both LE and hands. Has hypopigmented macules in her UE and LE HEAD: Atraumatic. Normocephalic. No temporal wasting, or tenderness. EYES: [place] conjunctiva. No petechia or hemorrhage. Pupils equal, round and reactive to light. No scleral icterus. No injection or drainage. EARS, NOSE AND THROAT: Nose without bleeding or purulent nasal discharge. She is orally intubated NECK: Trachea midline. Supple and not tender, no meningeal signs CARDIOVASCULAR: Distant heart sounds. Regular rate and rhythm. RESPIRATORY: Coarse breath sounds bilaterally, chest tube on the right side, it's a pigtail catheter, and fluid is purulent. ABDOMEN: Soft, nondistended, got agitated during abdominal palpation, but no guarding appreciated. Bowel sounds present and normoactive. No organomegaly. EXTREMITIES: No clubbing. Has mottling in both feet and hands, cold. Mild pedal edema. NEUROLOGICAL: Sedated. No Babinski. No ankle clonus. PSYCHIATRIC: Unable to assess LINE: LSC TLC, with no evidence of infection : [place] in place, urine looks clear Laboratory Laboratory Tests Test 07/14/17 17:53 07/15/17 05:35 Pleural Fluid pH 8.5 Pleural Fluid WBC 88196 Pleural Fluid RBC 1783 Pleural Fluid Neutrophils 93 Pleural Fluid Lymphocytes 4 Pleural Fluid Monocytes 2 Pleural Fluid Histiocytes 1 Pleural Fluid Comment Pleural Fluid Total Protein 3.8 Pleural Fluid LDH 2587 Pleural Fluid Glucose 44 White Blood Count 16.5 Red Blood Count 3.08 Hemoglobin 8.1 Hematocrit 25.2 Mean Corpuscular Volume 81.9 Mean Corpuscular Hemoglobin 26.4 Mean Corpuscular Hemoglobin Concent 32.3 Red Cell Distribution Width 18.1 Platelet Count 402 Mean Platelet Volume 7.6 Neutrophils (%) (Auto) 90.9 Lymphocytes (%) (Auto) 6.1 Monocytes (%) (Auto) 2.8 Eosinophils (%) (Auto) 0.0 Basophils (%) (Auto) 0.2 Neutrophils # (Auto) 15.0 Lymphocytes # (Auto) 1.0 Monocytes # (Auto) 0.5 Eosinophils # (Auto) 0.0 Basophils # (Auto) 0.0 CBC Comment AUTO DIFF Differential Total Cells Counted 100 Neutrophils % (Manual) 88 Lymphocytes % 6 Monocytes % 4 Neutrophils # (Manual) 14.9 Myelocytes 2 Nucleated Red Blood Cells 2 Differential Comment FINAL DIFF MANUAL Platelet Estimate NORMAL Platelet Morphology Comment NORMAL Blood Urea Nitrogen 35 Creatinine 1.14 Random Glucose 158 Total Protein 5.4 Albumin 1.2 Calcium Level 7.0 Alkaline Phosphatase 95 Aspartate Amino Transf (AST/SGOT) 25 Alanine Aminotransferase (ALT/SGPT) 8 Total Bilirubin 0.3 Sodium Level 142 Potassium Level 3.5 Chloride Level 107 Carbon Dioxide Level 25.8 Anion Gap 9 Estimat Glomerular Filtration Rate 48 Protein Corrected Calcium 7.9 Date/Time Source Procedure Growth Status 07/11/17 06:55 Blood Peripheral Aerobic Blood Culture - Preliminary NO GROWTH IN 4 DAYS Resulted 07/11/17 06:55 Blood Peripheral Anaerobic Blood Culture - Preliminary NO GROWTH IN 4 DAYS Resulted 07/14/17 17:53 Fluid Pleural Fluid Fungal Smear - Final NO FUNGAL ELEMENTS SEEN. Resulted 07/14/17 17:53 Fluid Pleural Fluid Fungal Culture Pending Resulted 07/11/17 19:30 Sputum Endotracheal Gram Stain - Final Complete 07/11/17 19:30 Sputum Culture - Final Staphylococcus Aureus Complete 07/11/17 08:30 Urine Random Urine Legionella Antigen - Final PRESUMPTIVE NEGATIVE FOR LEGIONELLA P... Complete Result Diagram: 07/15/17 0535 07/15/17 0535 Imaging RADIOLOGY STUDIES/FILMS REVIEWED Chest X-Ray 07/15/17 0600 Signed Impressions: Service Date/Time: Saturday, July 15, 2017 04:52 - CONCLUSION: 1. Basilar airspace consolidation and right upper lobe opacity similar to prior exam. Small caliber right chest tube without pneumothorax. Support apparatus in good position. Chas Sanches MD Chest X-Ray 07/14/17 0000 Signed Impressions: Service Date/Time: Friday, July 14, 2017 18:02 - CONCLUSION: 1. Right base chest tube placed with near complete resolution of the previously seen laterally loculated pleural effusion. 2. Right upper lobe and bibasilar consolidation slightly improved. 3. Lines and tubes as above. Nasogastric tube tip is in the midesophagus. Moustapha Copeland MD Assessment and Plan Assessment and Plan IMPRESSION Sepsis with shock on presentation due to CAP - hemodynamics better, off pressors Community acquired PNA, with empyema - sputum C/S MSSA Leukocytosis, improving Renal insufficiency due to sepsis, and hypotension, improving Respiratory failure Hx COPD, smoker RECOMMENDATION Continue Rocephin Continue Levaquin Follow C/S and adjust Abx To get CT of chest CTS to see May need decortication if fluid not drained completely Will determine course of Abx once workup completed I will follow along with you Thank you for this consultation Discussed Condition With D/W Holly Cheatham MD Jul 15, 2017 11:29
[2017-07-15] MEDS ORDERED: PHARMACY ORDERED LAB ONE (11:45)
--- NOTE | 2017-07-15 12:08 | RADRPT ---
EXAM DATE/TIME: 07/15/2017 11:25 [facility] COMPARISON: CT PELVIS W/O CONTRAST, October 29, 2016, 7:53. INDICATIONS : Evaluate residual effusion RADIATION DOSE: 4.91 CTDIvol (mGy) MEDICAL HISTORY : Hypertension. Chronic obstructive pulmonary disease. SURGICAL HISTORY : Hysterectomy. ENCOUNTER: Initial ACUITY: 1 day PAIN SCALE: 0/10 LOCATION: chest TECHNIQUE: Volumetric scanning of the chest was performed. Using automated exposure control and adjustment of t he mA and/or kV according to patient size, radiation dose was kept as low as reasonably achievable to obtain optimal diagnostic quality images. DICOM format image data is available electronically for r eview and comparison. Follow-up recommendations for detected pulmonary nodules are based at a minimum on nodule size and pa tient risk factors according to Fleischner Society Guidelines. FINDINGS: The examination demonstrates bilateral pleural effusions. There is a chest tube in Place at the right lung base. The tube appears well-positioned. The effusions are quite small in size. There is conside rable consolidation in both lung bases. There is patchy infiltrate seen throughout both lungs. There are densely consolidated areas with area s of cavitation involving the right upper lobe and posterior aspect of the left lower lobe. These wou ld be concerning for areas of consolidated pneumonia. There is no significant hilar or mediastinal adenopathy present. There is a central venous catheter i n satisfactory position. There is a nasogastric tube present. Note is made of a small pericardial effusion. The osseous structures demonstrate old fractures of the posterior left third, fourth and fifth ribs. No acute fractures are identified. CONCLUSION: 1. There are extensive pleural and parenchymal changes. There are densely consolidated areas cavitati on involving the right upper lobe and posterior aspect of the left lower lobe concerning for cavitary areas of pneumonia. 2. There are bilateral pleural effusions. The effusion effusions are small in size. There is consider able consolidated lung in the lung bases bilaterally. 3. Old, healed posterior rib fractures on the left. 4. Small pericardial effusion. Kendall Corona MD on July 15, 2017 at 12:03 Board Certified Radiologist. This report was verified electronically.
[2017-07-15] MEDS: fentaNYL DRIP 250 ML IV SCH (13:22)
[2017-07-15] MEDS ORDERED: CHLORHEXIDINE GLUCONATE 4% SOLN 120 ML BTL TOPICAL SCH (13:30)
[2017-07-15] MEDS ORDERED: VANCOMYCIN INJ 1,250 MG in SODIUM CHLOR 0.9% 250 ML INJ 250 ML IV SCH (13:30)
[2017-07-15] MEDS ORDERED: VANCOMYCIN INJ 1,000 MG in SODIUM CHLORIDE 0.9% IRR BTL 1,000 ML IRRIGATION SCH (13:30)
[2017-07-15 13:48] LABS: BLOOD GAS BASE EXCESS -0.5 mmol/L (-2-2); BLOOD GAS CARBOXYHEMOGLOBIN 1.6 % (0-4); BLOOD GAS HCO3 23 mmol/L (22-26); BLOOD GAS METHEMOGLOBIN 1.2 % (0-2); BLOOD GAS O2 HGB SATURATION 96 % (90-100); BLOOD GAS OXYGEN CONTENT 12.2 Vol % (12.0-20.0); BLOOD GAS PCO2 31 mmHg (38-42); BLOOD GAS PO2 102 mmHg (61-120); CRITICAL VALUE NO; OXYGEN DEVICE VENTILATOR; TEMP CORR TO 98.6
[2017-07-15 13:50] LABS: DRAW SITE RT RADIAL; FIO2 40 %; NUMBER OF ARTERIAL PUNCTURES 1; STAT NO; ULNAR PULSE PRESENT
[2017-07-15] MEDS: SODIUM CHLORIDE 0.9% FLUSH 10 ML FLUSH IV FLUSH PRN (20:02)
[2017-07-16] VITALS (43 sets, daily range): BP systolic 93–149; BP diastolic 60–113; PULSE 66–167; RESP 16–32; TEMP 96.2–98; O2SAT 89–100
[2017-07-16] MEDS: RESP: ALBUTEROL 2.5 MG/IPRATROPIUM 0.5 MG NEB (SCH) INH ×4 (03:23→20:23)
[2017-07-16] MEDS: CHLORHEXIDINE GLUCONATE 2 % 1 PACK (2 CLOTHS) TOP SCH (03:36)
[2017-07-16] MEDS: fentaNYL DRIP 250 ML IV SCH ×2 (03:36→15:35)
[2017-07-16 05:18] LABS: AUTOMATED NEUTROPHIL # 13.3 TH/MM3 (1.8-7.7); BASOPHIL % 0.1 % (0.0-2.0); EOSINOPHIL % 0.1 % (0.0-4.0); HEMATOCRIT 25.1 % (35.0-46.0); LYMPH % 6.2 % (9.0-44.0); LYMPHOCYTE # 0.9 TH/MM3 (1.0-4.8); MEAN CELL VOLUME 81.8 FL (80.0-100.0); MEAN CORPUSCULAR HEMOGLOBIN 26.4 PG (27.0-34.0); MEAN CORPUSCULAR HGB CONC 32.2 % (32.0-36.0); MONO % 3.6 % (0.0-8.0); PLATELET COUNT 347 TH/MM3 (150-450); RED BLOOD COUNT 3.07 MIL/MM3 (4.00-5.30); RED CELL DISTRIBUTION WIDTH 18.5 % (11.6-17.2); WHITE BLOOD COUNT 14.8 TH/MM3 (4.0-11.0)
[2017-07-16] MEDS: PROPOFOL 1000 MG/100 ML INJ 100 ML IV SCH ×4 (05:26→20:13)
[2017-07-16 05:27] LABS: HEMO FLAGS AUTO DIFF
[2017-07-16 05:34] LABS: PROTHROMBIN TIME - PATIENT 11.4 SEC (9.8-11.6)
[2017-07-16 05:41] LABS: ANION GAP 6 MEQ/L (5-15); AST (GOT) 25 U/L (15-37); BICARBONATE 28.8 MEQ/L (21.0-32.0); BLOOD UREA NITROGEN 31 MG/DL (7-18); CHLORIDE 108 MEQ/L (98-107); GLOMERULAR FILTRATION RATE 71 ML/MIN (>89); MAGNESIUM 1.9 MG/DL (1.5-2.5); POTASSIUM 3.8 MEQ/L (3.5-5.1); SODIUM (NA) 143 MEQ/L (136-145)
[2017-07-16 05:42] LABS: ALT (GPT) 11 U/L (10-53)
[2017-07-16 05:44] LABS: ALKALINE PHOSPHATASE 92 U/L (45-117); TOTAL BILIRUBIN ADULT 0.2 MG/DL (0.2-1.0)
--- NOTE | 2017-07-16 05:44 | RADRPT ---
EXAM DATE/TIME: 07/16/2017 04:31 [place] COMPARISON: CHEST SINGLE AP, July 15, 2017, 4:52. INDICATIONS : Respiratory status. MEDICAL HISTORY : None. SURGICAL HISTORY : None. ENCOUNTER: Subsequent ACUITY: 4 - 6 days PAIN SCORE: Non-responsive. LOCATION: Bilateral chest FINDINGS: A single view of the chest demonstrates persistent bilateral patchy airspace disease including consol idation laterally in the right upper lobe and bibasilar areas of consolidation which actually shows m inimal improvement. Associated effusions, right greater than left. [place] loop thoracostomy tube remain s unchanged in position laterally in the right lower chest. Endotracheal, nasogastric tubes in the le ft subclavian central venous catheter also unchanged. Heart size is normal. Transpedicular posterior fixation of the lumbar spine with anterior fixation of the cervical spine. Osseous structures are oth erwise intact. CONCLUSION: 1. Bilateral patchy airspace disease with some improved aeration in the bases. 2. Persistent bilateral pleural effusions, right greater than left. Right-sided thoracostomy tube lat erally in the lower chest is unchanged. Remaining support tubes are also stable in position. Ken Teran MD on July 16, 2017 at 5:40 Board Certified Radiologist. This report was verified electronically.
[2017-07-16] MEDS: INSULIN NovoLIN REGULAR SUPPLEMENTAL SCALE SQ SCH ×4 (06:00→18:00)
--- NOTE | 2017-07-16 07:41 | MB ---
cc: RAISA TORO MD DATE OF CONSULTATION 07/15/2017 DATE OF ADMISSION 07/11/2017 DATE OF 1950 REASON FOR CONSULTATION This is a 66-year-old female brought in by ambulance after her called after she started having some respiratory issues. She apparently has a severe history of COPD with emphysema. She was found to be in complete respiratory distress with a [place] coma of 6 and was intubated by EMS for airway protection. On arrival, her blood gas showed a pH of 7.24, CO2 of 64, pO2 of 84 that was already on PRVC mode at 100% FIO2. It was also noted that her lactic acid level was 6.7 and her white cell count of 60,000. She was also hypotensive in septic shock. She was given IV fluids and pressors. She remains intubated on a ventilator PRVC mode. She is now down to 40% FIO2. She is sedated, however, per the nursing staff when she sedation is lightened, she becomes very combative and not does not follow commands. We were consulted secondary to a right parapneumonic process in the right lower lobe. She underwent chest tube placement by Dr. Echavarria yesterday which showed they used a 12-[place] pigtail catheter and about 700 cc of yellow white cloudy fluid was drained. The pleural fluid WBC count was 32,000. The glucose was 44. It is exudative. The LDH itself in the pleural fluid was 2500. She also had positive sputum for penicillin sensitive staph aureus. Cytology is pending on the pleural fluid. She underwent CT scan of the chest this morning which showed extensive pleural and parenchymal changes, densely consolidated areas of cavitation involving the right upper lobe, posterior aspect of the left lower lobe concerning for cavitary areas of pneumonia, bilateral pleural effusions, the right being worse than the left, small pericardial effusion. We were asked to again evaluate for possible video-assisted thoracoscopic procedure with possible pleurodesis and placement of a larger bore chest tube. PAST MEDICAL HISTORY The past medical history was obtained from the medical record due to her inability to interact. She has a history of: 1. Arthritis 2. Anxiety 3. Hypertension 4. Bronchitis 5. Severe COPD 6. Chronic back pain 7. History of ulcers PAST SURGICAL HISTORY Surgeries include: 1. Back surgeries 2. Hysterectomy ALLERGIES INCLUDE PENICILLIN-G, SULFA. MEDICATIONS Home meds include: 1. Benadryl 2. Sumycin for a recent scalp laceration 3. Flexeril 4. Procardia 5. [place] 10 mg p.r.n. for pain 6. Vistaril p.r.n. for itching. 7. Apparently she also has does not mobilize a well uses a wheelchair. FAMILY HISTORY Noncontributory SOCIAL HISTORY Per the notes, positive for tobacco abuse, rare ETOH. Toxicology screen showed less than three ETOH, otherwise relatively negative. REVIEW OF SYSTEMS Unobtainable. The patient is currently sedated on the ventilator. PHYSICAL EXAM On exam, a critically ill female. VITAL SIGNS: Blood pressure 110/60, heart rate of 90, afebrile, O2 sat 99% on 40% FIO2. GENERAL: Patient is sedated on propofol and fentanyl. HEAD, EYES, EARS, NOSE, AND THROAT: Pupils are equal, reactive. She is orally intubated. She has some dark old bloody drainage from the ET tube. NECK: Supple. No JVD. HEART: Heart sounds S1-S2 slightly tachycardiac. No rubs, murmurs appreciated. LUNGS: She has coarse bilateral breath sounds. She has a chest tube on the right with no air leak with yellowish drainage. She has drained approximately one liter since it was placed. ABDOMEN: Obese, soft, nontender. No masses or organomegaly. EXTREMITIES: She does have some areas of some cyanosis over her knees and her lower feet. She has got faint palpable pulses. LABORATORY DATA Her lab work shows a hemoglobin of 8.1, hematocrit 25, white cell count 16, platelet count of 402. Sodium 142, potassium 3.5, BUN 35, creatinine 1.14 which has improved. Normal liver enzymes, albumin is low at 1.2, troponin spiked at 0.19, lactic acid went from 6.7 down to 2 which has not been recently checked. Pleural fluid as above. Micro as above. CT CHEST As above. He also had an EKG on initial admission which showed some sinus tachycardia, otherwise unremarkable. IMPRESSION 1. Again, a 66-year-old female with severe COPD who presented with acute hypoxic, hypercapnic respiratory failure immediately intubated in the emergency department with large parapneumonic effusion status post chest tube placement. CT scan is abnormal and we have been consulted to evaluate for possible right video-assisted thoracoscopy, placement of a large bore chest tube and pleurodesis, possible thoracotomy which will be further evaluated by Dr. Raisa Toro. Critical care management at this time for her respiratory failure. 2. She is also being treated for severe bilateral community-acquired pneumonia with staph aureus in her sputum. She is on multiple antibiotic coverage. 3. Status post of septic shock. She has been off her pressors at this time. 4. Acute kidney injury with improved renal indices. 5. Metabolic encephalopathy. 6. Lactic acidosis resolved. PLAN The patient remained sedated on the ventilator at this time. The CT scan will be reviewed by Dr. Raisa Toro and further planning for any procedure at that time. I have discussed this also with Dr. Echavarria, critical care surgical services assistant. Dictated by PACO Fagan Raisa POLK /12:17 PM /7:31 AM
[2017-07-16 08:42] LABS: BANDS 2 % (0-6); METAMYELOCYTES 4 % (0-1); MYELOCYTES 2 % (0-0); NEUTROPHIL # MANUAL DIFF 13.8 TH/MM3 (1.8-7.7); PLATELET ESTIMATE SMEAR NORMAL (NORMAL); PLATELET MORPHOLOGY NORMAL (NORMAL); POLYS (SEG NEUTROPHILS) 85 % (16-70); SCAN/DIFF FINAL DIFF MANUAL; WBC DIFF SAMPLE 100
[2017-07-16 08:43] LABS: OVALOCYTES 1+ (NORMAL)
[2017-07-16] MEDS: DOCUSATE SODIUM 50 MG/SENNA 8.6 MG TAB PO SCH ×2 (08:58→20:10)
--- NOTE | 2017-07-16 09:19 | HHI.CCPN ---
Subjective Remarks/Hospital Course 66-year-old female with history of COPD, hypertension, presents to the ER tbrought in by EMS after called stating that his was having respiratory issues. She was found in respiratory distress, GCS 6, and was intubated by EMS for airway protection. They state that she initially sounded like she had rales bilaterally. She is not able to give me any further history. They found that her blood pressure was 70 systolic and started her on IV fluids and Levophed. Subjective: 07/12: still on vasopressors. weaning fio2. remains in shock. mental status still poor, although now purposeful. renal function slowly improving, although remains severely oliguric. 07/13: clinically starting to improve. off vasopressors. fio2 improving. cultures still no growth to date. renal function also improving. 07/14: Remains intubated sedated, encephalopathic. Failed SBT due to tachypnea. UO 2.3 L in 24 hours. On sedation hold do not follow commands. Get CT chest to evaluate loculated effusion 07/15: R pigtail chest tube placed yesterday and 07/14/17. Fluid had appearance of early empyema (yellow cloudy). Pleural fluid studies shows WBC count of 32, 227 with 93% neutrophils. Fluid LDH is 2587 (serum LDH 143) fluid glucose is 44 (serum 158). CTS and ID consulted 07/16: Remains intubated sedated, on sedation hold patient becomes tachypneic. CTS consulted for right empyema. Patient is scheduled for right video-assisted thoracoscopy, with possible thoracotomy by Dr. Carpio 07/17/17. ID also following. CT chest from yesterday shows right upper lobe lobe and left lower lobe cavitating pneumonia, bilateral small effusions. Remains critically ill but stabilizing Objective Vital Signs Date Time Temp Pulse Resp B/P (MAP) Pulse Ox O2 Delivery O2 Flow Rate FiO2 07/16/17 08:00 90 07/16/17 08:00 40 07/16/17 08:00 97.2 26 119/77 (91) 99 07/15/17 19:00 Mechanical Ventilator Intake and Output 07/16/17 07/16/17 07/17/17 08:00 16:00 00:00 Intake Total 1067 ml Output Total 700 ml Balance 367 ml Result Diagram: 07/16/17 0425 07/16/17 0425 Other Results Laboratory Tests Test 07/15/17 13:42 Blood Gas Puncture Site RT RADIAL Blood Gas Patient Temperature 98.6 Blood Gas HCO3 23 mmol/L (22-26) Blood Gas Base Excess -0.5 mmol/L (-2-2) Blood Gas Oxygen Saturation 96 % (90-100) Arterial Blood pH 7.48 (7.380-7.420) Arterial Blood Partial Pressure CO2 31 mmHg (38-42) Arterial Blood Partial Pressure O2 102 mmHg (61-120) Arterial Blood Oxygen Content 12.2 Vol % (12.0-20.0) Arterial Blood Carboxyhemoglobin 1.6 % (0-4) Arterial Blood Methemoglobin 1.2 % (0-2) Blood Gas Hemoglobin 9.0 G/DL (12.0-16.0) Oxygen Delivery Device VENTILATOR Blood Gas Ventilator Setting Blood Gas Inspired Oxygen 40 % Imaging Last Impressions Chest X-Ray 07/11/17 0629 Signed Impressions: Service Date/Time: Tuesday, July 11, 2017 07:04 - CONCLUSION: 1. Endotracheal tube in appropriate position with tip measuring 6.3 cm from the karri. 2. Small right pleural effusion with bilateral lower lung zone predominant airspace consolidation, right greater than left. Moustapha Mancuso MD Objective Remarks GENERAL: Middle-aged female, appears older than stated age. Frail. Critically ill. HEENT: Normocephalic. Atraumatic. Pupils equal, round, reactive, conjugate. Mucous membranes are moist. Orotracheally intubated NECK: Trachea is midline. There is no JVD. CHEST: Endotracheal tube in place. PRVC. 40% FiO2. Coarse rales throughout all lung meek. R pigtail chest tube with approximately 130 ml last 24 hours yellow cloudy fluid CARDIOVASCULAR: Tachycardic rate, regular rhythm. Sinus by telemetry. No appreciable murmurs. ABDOMEN: Soft, nontender, nondistended. No guarding. MUSCULOSKELETAL: Pulses 2+. No peripheral edema. NEUROLOGICAL: Purposeful. Follows commands x4 but very lethargic No focal deficits. A/P Assessment and Plan Assessment: This is a 66-year-old female with history of COPD who presents with what appears to be severe bilateral community-acquired pneumonia and associated septic shock, acute hypoxic respiratory failure. Pleural fluid studies concerning for empyema. CT surgery and infectious disease was consulted. End organs starting to improve. Check CT chest to evaluate for residual effusion Plan by systems: Neurologic: Metabolic encephalopathy - Propofol and fentanyl for goal RASS -2 - Daily sedation vacation (did not tolerate today due to tachypnea) - frequent neuro checks Respiratory: Acute hypoxic respiratory failure Right sided empyema Severe bilateral community-acquired pneumonia, with cavitation COPD exacerbation - R pigtail chest tube placed 07/14/17. Fluid appearance and fluid studies consistent with empyema - CTS consulted. Dr. Carpio planning for VATS procedure, with possible thoracotomy tomorrow 07/17/17 10:30 AM - Pleural fluid studies shows WBC count of 32,227 with 93% neutrophils. Fluid LDH is 2587 (serum LDH 143) fluid glucose is 44 (serum 158). - CT chest shows cavitating pneumonia involving right upper lobe and left lower lobe - vent bundle, hob at 30 degrees, nebs. steroids, see ID section for ABX - Failed SBT due to tachypnea - wean fio2 for spo2 > 90% Cardiovascular: Septic shock- resolved. NSTEMI/Type II Demand Ischemia - Unlikely to be ACS. clinically has sepsis syndrome - Off Levophed - Diuresis with lasix 60 mg iv x 1 given 07/13 - Keep fluid balance even Renal: Acute Kidney Injury- resolving. - Strict I/Os - watch UOP closely. JOSE MIGUEL secondary to septic shock - Creat has normalized. UO 1300 ml in 24 hours FEN/GI: Intravascular Hypovolemia- resolved. Lactic Acidosis- resolved. Acute protein calorie malnutrition- severe - Jevity TF, nutrition consult for goal. NPO after midnight - ICU electrolyte protocol. Heme/ID: Acute Community Acquired Pneumonia with Empyema Septic Shock- resolving. UTI with lactobacillus - Continue Rocephin 2GM IV daily. Continue Levaquin - Pleural fluid appearance yellow cloudy WBC 32,227 with 93% neutrophils. Fluid LDH is 2587 (serum LDH 143) fluid glucose is 44 (serum 158). - ID-Dr. Luna CTS Dr. Carpio. VATS 07/17/17 - Pertinent cultures. sputum 07/11 MSSA , urine 07/11 lactobacillus - urine legionella and pneumococcal ag negative 07/11 Endocrine: Hyperglycemia of Critical Illness -- SSI Prophylaxis: GI Prophylaxis Pepcid DVT Prophylaxis -- SCDs SQH Lines: 07/11 radial art line-DCd 07/14 07/11 SC TLC Dispo: Continue ICU. CCT 35 min. Updated at the bedside Patient remains critically ill with empyema and cavitating pneumonia. Clinically stabilizing; needs VATS procedure for empyema tomorrow Nika Gerard MD Jul 16, 2017 09:19
[2017-07-16] MEDS: cefTRIAXone INJ 2,000 MG in SODIUM CHLORIDE 0.9% INJ 100 ML IV SCH (09:49)
[2017-07-16] MEDS: FAMOTIDINE 20 MG/2 ML VIAL IV PUSH SCH ×2 (09:50→20:09)
[2017-07-16] MEDS: CHLORHEXIDINE 0.12% (ORAL KIT) 15 ML CUP MT SCH ×2 (09:50→20:09)
[2017-07-16] MEDS: SODIUM CHLORIDE 0.9% FLUSH 10 ML FLUSH IV FLUSH SCH ×2 (09:50→20:09)
[2017-07-16] MEDS: methylPREDNISolone SOD SUCC 125 MG/2 ML VIAL IV PUSH SCH ×2 (09:50→20:09)
[2017-07-16] MEDS ORDERED: METOPROLOL TARTRATE 5 MG/5 ML VIAL ONE (13:00)
[2017-07-16] MEDS ORDERED: POTASSIUM CHLORIDE 10 MEQ CONTROLLED RELEASE TAB PO ONE (13:15)
[2017-07-16] MEDS ORDERED: DILTIAZEM HCL 25 MG/5 ML VIAL IV PUSH ONE (14:00)
[2017-07-16] MEDS ORDERED: DILTIAZEM INJ 125 MG in SODIUM CHLORIDE 0.9% INJ 100 ML IV PRN (14:00)
[2017-07-16] MEDS ORDERED: MAGNESIUM SULFATE 1 GM PREMIX 100 ML IV ONE (14:00)
[2017-07-16] MEDS ORDERED: METOPROLOL TARTRATE 5 MG/5 ML VIAL IV PUSH ONE (14:00)
--- NOTE | 2017-07-16 14:22 | HHI.IDPN ---
Subjective Subjective Remarks Patient is a 66-year-old female, brought into the hospital for evaluation of respiratory distress. apparently noted increasing shortness of breath. EMS was called, and now she was in respiratory distress, and was intubated. In the ER she was hypotensive, and was given fluid resuscitation and pressors. Patient has remained on the vent. She is afebrile. Her initial WBC was 60, 000. Her creatinine was also elevated. Her chest x-ray showed bilateral infiltrates, and she eventually had placement of a chest tube on the right side yesterday. Fluid analysis is showing empyema. Patient's hemodynamics have improved, and she is off pressors. Her creatinine is also improving. Her WBC is also improving. A sputum culture was done and it has MSSA. Legionella and pneumococcal antigen are negative. Infectious disease consultation has been requested to evaluate the patient. Notes reviewed Temps ok CT chest noted Sedated on the vent Not on pressors CTS notes reviewed Fluid C/S Staph aureus WBC improving Good output fro chest tube - purulent Antibiotics Vancomycin Levaquin Rocephin Lines LSC TLC Past Medical History Arthritis Anxiety Hypertension Bronchitis COPD Back pain Ulcers Past Surgical History Hysterectomy Back surgeries TENS unit removed from back Allergies: Coded Allergies: penicillin G (Unverified Allergy, Intermediate, Hives, 07/11/17) Sulfa (Sulfonamide Antibiotics) (Unverified Allergy, Unknown, 07/11/17) Objective . Vital Signs Date Time Temp Pulse Resp B/P (MAP) Pulse Ox O2 Delivery O2 Flow Rate FiO2 07/16/17 13:27 114 94/66 07/16/17 12:00 96.2 88 27 132/76 (94) 100 07/16/17 12:00 40 07/16/17 12:00 88 07/16/17 10:18 97 40 07/16/17 10:00 91 07/16/17 08:00 90 07/16/17 08:00 40 07/16/17 08:00 97.2 90 26 119/77 (91) 99 07/16/17 06:00 88 07/16/17 04:20 100 40 07/16/17 04:00 40 07/16/17 04:00 80 07/16/17 04:00 97.9 80 20 104/62 (76) 100 07/16/17 02:24 100 40 07/16/17 02:00 83 07/16/17 00:00 40 07/16/17 00:00 97.7 90 24 118/73 (88) 100 07/16/17 00:00 90 07/15/17 22:23 100 40 07/15/17 22:00 98 07/15/17 20:00 40 07/15/17 20:00 98.3 95 26 121/75 (90) 100 07/15/17 20:00 95 07/15/17 19:52 96 40 07/15/17 19:00 97 Mechanical Ventilator 40 07/15/17 18:00 102 07/15/17 17:04 98 40 07/15/17 16:00 40 07/15/17 16:00 98.4 98 27 124/74 (91) 26 07/15/17 16:00 98 07/16/17 07/16/17 07/17/17 15:00 23:00 07:00 Intake Total 193 ml Balance 193 ml Intake IV Total 193 ml . Laboratory Tests Test 07/15/17 05:35 07/16/17 04:25 White Blood Count 16.5 TH/MM3 14.8 TH/MM3 Red Blood Count 3.08 MIL/MM3 3.07 MIL/MM3 Hemoglobin 8.1 GM/DL 8.1 GM/DL Hematocrit 25.2 % 25.1 % Mean Corpuscular Volume 81.9 FL 81.8 FL Mean Corpuscular Hemoglobin 26.4 PG 26.4 PG Mean Corpuscular Hemoglobin Concent 32.3 % 32.2 % Red Cell Distribution Width 18.1 % 18.5 % Platelet Count 402 TH/MM3 347 TH/MM3 Mean Platelet Volume 7.6 FL 7.6 FL Neutrophils (%) (Auto) 90.9 % 90.0 % Lymphocytes (%) (Auto) 6.1 % 6.2 % Monocytes (%) (Auto) 2.8 % 3.6 % Eosinophils (%) (Auto) 0.0 % 0.1 % Basophils (%) (Auto) 0.2 % 0.1 % Neutrophils # (Auto) 15.0 TH/MM3 13.3 TH/MM3 Lymphocytes # (Auto) 1.0 TH/MM3 0.9 TH/MM3 Monocytes # (Auto) 0.5 TH/MM3 0.5 TH/MM3 Eosinophils # (Auto) 0.0 TH/MM3 0.0 TH/MM3 Basophils # (Auto) 0.0 TH/MM3 0.0 TH/MM3 CBC Comment AUTO DIFF AUTO DIFF Differential Total Cells Counted 100 100 Neutrophils % (Manual) 88 % 85 % Lymphocytes % 6 % 6 % Monocytes % 4 % 1 % Neutrophils # (Manual) 14.9 TH/MM3 13.8 TH/MM3 Myelocytes 2 % 2 % Nucleated Red Blood Cells 2 /100 WBC Differential Comment FINAL DIFF MANUAL FINAL DIFF MANUAL Platelet Estimate NORMAL NORMAL Platelet Morphology Comment NORMAL NORMAL Band Neutrophils % 2 % Metamyelocytes 4 % Ovalocytes 1+ Laboratory Tests Test 07/15/17 05:35 07/16/17 04:25 Blood Urea Nitrogen 35 MG/DL 31 MG/DL Creatinine 1.14 MG/DL 0.81 MG/DL Random Glucose 158 MG/DL 114 MG/DL Total Protein 5.4 GM/DL 5.2 GM/DL Albumin 1.2 GM/DL 1.2 GM/DL Calcium Level 7.0 MG/DL 7.6 MG/DL Alkaline Phosphatase 95 U/L 92 U/L Aspartate Amino Transf (AST/SGOT) 25 U/L 25 U/L Alanine Aminotransferase (ALT/SGPT) 8 U/L 11 U/L Total Bilirubin 0.3 MG/DL 0.2 MG/DL Sodium Level 142 MEQ/L 143 MEQ/L Potassium Level 3.5 MEQ/L 3.8 MEQ/L Chloride Level 107 MEQ/L 108 MEQ/L Carbon Dioxide Level 25.8 MEQ/L 28.8 MEQ/L Anion Gap 9 MEQ/L 6 MEQ/L Estimat Glomerular Filtration Rate 48 ML/MIN 71 ML/MIN Protein Corrected Calcium 7.9 MG/DL Magnesium Level 1.9 MG/DL Microbiology Date/Time Source Procedure Growth Status 07/15/17 12:13 Fluid Pleural Fluid Gram Stain - Final Resulted 07/15/17 12:13 Fluid Pleural Fluid Body Fluid Culture Pending Resulted 07/14/17 17:53 Fluid Pleural Fluid Fungal Smear - Final NO FUNGAL ELEMENTS SEEN. Resulted 07/14/17 17:53 Fluid Pleural Fluid Fungal Culture Pending Resulted 07/14/17 17:53 Fluid Pleural Fluid Acid Fast Stain - Final NO ACID FAST BACILLI SEEN Resulted 07/14/17 17:53 Fluid Pleural Fluid Mycobacterial Culture Pending Resulted 07/14/17 17:53 Fluid Pleural Fluid Gram Stain - Final Resulted 07/14/17 17:53 Body Fluid Culture - Preliminary Staphylococcus Aureus Resulted Imaging Chest X-Ray 07/16/17 0600 Signed Impressions: Service Date/Time: July 04:31 - CONCLUSION: 1. Bilateral patchy airspace disease with some improved aeration in the bases. 2. Persistent bilateral pleural effusions, right greater than left. Right-sided thoracostomy tube laterally in the lower chest is unchanged. Remaining support tubes are also stable in position. Ken Teran MD Chest CT 07/15/17 0000 Signed Impressions: Service Date/Time: Saturday, July 15, 2017 11:25 - CONCLUSION: 1. There are extensive pleural and parenchymal changes. There are densely consolidated areas cavitation involving the right upper lobe and posterior aspect of the left lower lobe concerning for cavitary areas of pneumonia. 2. There are bilateral pleural effusions. The effusion effusions are small in size. There is considerable consolidated lung in the lung bases bilaterally. 3. Old, healed posterior rib fractures on the left. 4. Small pericardial effusion. Kendall Corona MD Physical Exam GENERAL: sedated on the vent, not in respiratory distress. SKIN: Cool and dry, has mottling in both LE and hands. Has hypopigmented macules in her UE and LE HEAD: Atraumatic. Normocephalic. No temporal wasting, or tenderness. EYES: [place] conjunctiva. No petechia or hemorrhage. Pupils equal, round and reactive to light. No scleral icterus. No injection or drainage. EARS, NOSE AND THROAT: Nose without bleeding or purulent nasal discharge. She is orally intubated NECK: Trachea midline. Supple and not tender, no meningeal signs CARDIOVASCULAR: Distant heart sounds. Regular rate and rhythm. RESPIRATORY: Coarse breath sounds bilaterally, chest tube on the right side, it's a pigtail catheter, and fluid is purulent. ABDOMEN: Soft, nondistended, got agitated during abdominal palpation, but no guarding appreciated. Bowel sounds present and normoactive. No organomegaly. EXTREMITIES: No clubbing. Has mottling in both feet and hands, cold. Mild pedal edema. NEUROLOGICAL: Sedated. No Babinski. No ankle clonus. PSYCHIATRIC: Unable to assess LINE: LSC TLC, with no evidence of infection : [place] in place, urine looks clear Assessment & Plan Remarks IMPRESSION Sepsis with shock on presentation due to CAP - hemodynamics better, off pressors Community acquired PNA, cavitary PNA on CT, with empyema - sputum C/S MSSA - fluid C/S with Staph aureus Leukocytosis, improving Renal insufficiency due to sepsis, and hypotension, improving Respiratory failure Hx COPD, smoker RECOMMENDATION Continue Rocephin Continue Levaquin OK to stop Vancomycin Follow C/S and adjust Abx CTS - possible OR tomorrow Monitor progress D/W Holly Cheatham MD Jul 16, 2017 14:22
--- NOTE | 2017-07-16 14:29 | PD.CAR.PN ---
CVT Progress Note Subjective/Hospital Course: 66-year-old female with history of COPD, hypertension, presents to the ER tbrought in by EMS after called stating that his was having respiratory issues. She was found in acute hypercapnic resp failure respiratory distress, GCS 6, and was intubated by EMS for airway protection. Septic shock, place on pressors and resuscitated with IV fluid she has been faily SBT, and found to loculated right pleural effusion, Right pigtail cath was placed by Dr Echavarria, which drained > 1000cc yellow cloudy fluid , Pleural fluid studies shows WBC count of 32,227 with 93% neutrophils. Fluid LDH is 2587 (serum LDH 143) fluid glucose is 44 (serum 158). cultures now showing staph aureus , we were consulted to eval for Right VATS , thoracotomy , pleurodesis 07/16 pt remains on sedation, more awake and following simple commands, chest drained 50cc/ 12 hrs she is now scheduled for surgery in am, consent was received from spouse Objective: GENERAL: on light sedation , will follow simple commands, remains on vent SKIN: Warm and dry. HEAD: Normocephalic. EYES: No scleral icterus. No injection or drainage. NECK: Supple, trachea midline. No JVD or lymphadenopathy. CARDIOVASCULAR: Regular rate and rhythm without murmurs, gallops, or rubs. RESPIRATORY: coarse bilateral breath, orally intubated on vent Breath sounds equal bilaterally. No accessory muscle use. GASTROINTESTINAL: Abdomen soft, non-tender, nondistended. MUSCULOSKELETAL: No cyanosis, or edema. BACK: Nontender without obvious deformity. No CVA tenderness. skin : still has some mottling over both knees and tips of toes Vital Signs Date Time Temp Pulse Resp B/P (MAP) Pulse Ox O2 Delivery O2 Flow Rate FiO2 07/16/17 13:27 114 94/66 07/16/17 12:00 96.2 88 27 132/76 (94) 100 07/16/17 12:00 40 07/16/17 12:00 88 07/16/17 10:18 97 40 07/16/17 10:00 91 07/16/17 08:00 90 07/16/17 08:00 40 07/16/17 08:00 97.2 90 26 119/77 (91) 99 07/16/17 06:00 88 07/16/17 04:20 100 40 07/16/17 04:00 40 07/16/17 04:00 80 07/16/17 04:00 97.9 80 20 104/62 (76) 100 07/16/17 02:24 100 40 07/16/17 02:00 83 07/16/17 00:00 40 07/16/17 00:00 97.7 90 24 118/73 (88) 100 07/16/17 00:00 90 07/15/17 22:23 100 40 07/15/17 22:00 98 07/15/17 20:00 40 07/15/17 20:00 98.3 95 26 121/75 (90) 100 07/15/17 20:00 95 07/15/17 19:52 96 40 07/15/17 19:00 97 Mechanical Ventilator 40 07/15/17 18:00 102 07/15/17 17:04 98 40 07/15/17 16:00 40 07/15/17 16:00 98.4 98 27 124/74 (91) 26 07/15/17 16:00 98 Labs: Laboratory Tests Test 07/16/17 04:25 White Blood Count 14.8 TH/MM3 (4.0-11.0) Red Blood Count 3.07 MIL/MM3 (4.00-5.30) Hemoglobin 8.1 GM/DL (11.6-15.3) Hematocrit 25.1 % (35.0-46.0) Mean Corpuscular Volume 81.8 FL (80.0-100.0) Mean Corpuscular Hemoglobin 26.4 PG (27.0-34.0) Mean Corpuscular Hemoglobin Concent 32.2 % (32.0-36.0) Red Cell Distribution Width 18.5 % (11.6-17.2) Platelet Count 347 TH/MM3 (150-450) Mean Platelet Volume 7.6 FL (7.0-11.0) Neutrophils (%) (Auto) 90.0 % (16.0-70.0) Lymphocytes (%) (Auto) 6.2 % (9.0-44.0) Monocytes (%) (Auto) 3.6 % (0.0-8.0) Eosinophils (%) (Auto) 0.1 % (0.0-4.0) Basophils (%) (Auto) 0.1 % (0.0-2.0) Neutrophils # (Auto) 13.3 TH/MM3 (1.8-7.7) Lymphocytes # (Auto) 0.9 TH/MM3 (1.0-4.8) Monocytes # (Auto) 0.5 TH/MM3 (0-0.9) Eosinophils # (Auto) 0.0 TH/MM3 (0-0.4) Basophils # (Auto) 0.0 TH/MM3 (0-0.2) CBC Comment AUTO DIFF Differential Total Cells Counted 100 Neutrophils % (Manual) 85 % (16-70) Band Neutrophils % 2 % (0-6) Lymphocytes % 6 % (9-44) Monocytes % 1 % (0-8) Neutrophils # (Manual) 13.8 TH/MM3 (1.8-7.7) Metamyelocytes 4 % (0-1) Myelocytes 2 % (0-0) Differential Comment FINAL DIFF MANUAL Platelet Estimate NORMAL (NORMAL) Platelet Morphology Comment NORMAL (NORMAL) Ovalocytes 1+ (NORMAL) Prothrombin Time 11.4 SEC (9.8-11.6) Prothromb Time International Ratio 1.0 RATIO Blood Urea Nitrogen 31 MG/DL (7-18) Creatinine 0.81 MG/DL (0.50-1.00) Random Glucose 114 MG/DL (74-106) Total Protein 5.2 GM/DL (6.4-8.2) Albumin 1.2 GM/DL (3.4-5.0) Calcium Level 7.6 MG/DL (8.5-10.1) Magnesium Level 1.9 MG/DL (1.5-2.5) Alkaline Phosphatase 92 U/L (45-117) Aspartate Amino Transf (AST/SGOT) 25 U/L (15-37) Alanine Aminotransferase (ALT/SGPT) 11 U/L (10-53) Total Bilirubin 0.2 MG/DL (0.2-1.0) Sodium Level 143 MEQ/L (136-145) Potassium Level 3.8 MEQ/L (3.5-5.1) Chloride Level 108 MEQ/L (98-107) Carbon Dioxide Level 28.8 MEQ/L (21.0-32.0) Anion Gap 6 MEQ/L (5-15) Estimat Glomerular Filtration Rate 71 ML/MIN (>89) Result Diagram: 07/16/17 0425 07/16/17 0425 Telemetry: sinus tach (1) Respiratory distress (2) Endotracheally intubated (3) right locualted pleural effusion Plan: for right VATS, thoracotomy and pleurodesis in Desi Henson Jul 16, 2017 14:29
--- NOTE | 2017-07-16 15:40 | ECHRPT ---
Indication: SEPSIS ENDOCARDITIS CONCLUSIONS Normal left ventricular size. Wall thickness is measured at the upper limits of normal. The left ventricular systolic function is low normal with an estimated ejection fraction in the rang e of 50- 55%. The right ventriclar size is upper limits of normal. The right ventricular systoilc function is mildly decreased. Mitral annular calcification is present. Trace mitral valve regurgitation. Trace aortic valve regurgitation. There is estimated mild pulmonary hypertension present (42mmHg). There is a small pericardial effusion present. No hemodynamically significant echocardiographic features were observed (no pre-tamponade physiology). No vegetation identified BP: 115 / 67 HR: 80 Rhythm: Atrial fibrillation MEASUREMENTS (Male / Female) Normal Values Technical Quality:Fair 2D ECHO LV Diastolic Diameter PLAX 4.0 cm 4.2 - 5.9 / 3.9 - 5.3 cm LV Systolic Diameter PLAX 3.1 cm IVS Diastolic Thickness 1.2 cm 0.6 - 1.0 / 0.6 - 0.9 cm LVPW Diastolic Thickness 0.6 cm 0.6 - 1.0 / 0.6 - 0.9 cm LV Relative Wall Thickness 0.4 RV Internal Dim ED PLAX 2.6 cm DOPPLER MR Peak Velocity 300.0 cm/s MR Peak Gradient 36.0 mmHg Mitral E Point Velocity 68.6 cm/s Mitral A Point Velocity 66.6 cm/s Mitral E to A Ratio 1.0 TR Peak Velocity 284.0 cm/s TR Peak Gradient 32.3 mmHg FINDINGS LEFT VENTRICLE Normal left ventricular size. Wall thickness is measured at the upper limits of normal. The left ventricular systolic function is low normal with an estimated ejection fraction in the rang e of 50- 55%. RIGHT VENTRICLE The right ventriclar size is upper limits of normal. The right ventricular systoilc function is mildly decreased. LEFT ATRIUM The left atrial size is normal. RIGHT ATRIUM The right atrial size is normal. ATRIAL SEPTUM Normal atrial septal thickness without atrial level shunting by limited color doppler interrogation. AORTA The aortic root and proximal ascending aorta are normal in size on limited imaging. MITRAL VALVE Mitral annular calcification is present. Trace mitral valve regurgitation. AORTIC VALVE Trace aortic valve regurgitation. TRICUSPID VALVE There is estimated mild pulmonary hypertension present (42mmHg). PULMONARY VALVE The pulmonary valve is not well visualized. VESSELS The inferior vena cava is normal in size. PERICARDIUM There is a small pericardial effusion present. No hemodynamically significant echocardiographic features were observed (no pre-tamponade physiology). Albin Lee MD (Electronically Signed) Final Date:16 July 2017 15:39
[2017-07-17] VITALS (15 sets, daily range): BP systolic 98–133; BP diastolic 58–72; PULSE 51–97; RESP 18; TEMP 95.4–98.2; O2SAT 99–100
[2017-07-17] MEDS: RESP: ALBUTEROL 2.5 MG/IPRATROPIUM 0.5 MG NEB (SCH) INH ×3 (03:30→19:46)
[2017-07-17] MEDS: PROPOFOL 1000 MG/100 ML INJ 100 ML IV SCH ×6 (03:46→20:53)
[2017-07-17] MEDS: CHLORHEXIDINE GLUCONATE 2 % 1 PACK (2 CLOTHS) TOP SCH (03:46)
[2017-07-17] MEDS: fentaNYL DRIP 250 ML IV SCH ×2 (03:47→20:53)
[2017-07-17 05:53] LABS: AUTOMATED NEUTROPHIL # 10.9 TH/MM3 (1.8-7.7); HEMATOCRIT 25.2 % (35.0-46.0); LYMPH % 4.5 % (9.0-44.0); LYMPHOCYTE # 0.5 TH/MM3 (1.0-4.8); MEAN CELL VOLUME 83.2 FL (80.0-100.0); MEAN CORPUSCULAR HEMOGLOBIN 26.6 PG (27.0-34.0); MONO % 1.6 % (0.0-8.0); NEUT % 93.9 % (16.0-70.0); PLATELET COUNT 333 TH/MM3 (150-450); RED BLOOD COUNT 3.03 MIL/MM3 (4.00-5.30); RED CELL DISTRIBUTION WIDTH 19.1 % (11.6-17.2); WHITE BLOOD COUNT 11.6 TH/MM3 (4.0-11.0)
--- NOTE | 2017-07-17 05:53 | RADRPT ---
EXAM DATE/TIME: 07/17/2017 04:16 [facility] COMPARISON: CHEST SINGLE AP, July 16, 2017, 4:31. INDICATIONS : Respiratory failure, sepsis MEDICAL HISTORY : Sepsis. SURGICAL HISTORY : None. ENCOUNTER: Subsequent ACUITY: 1 week PAIN SCORE: Non-responsive. LOCATION: Bilateral chest FINDINGS: A single view of the chest demonstrates bilateral airspace disease predominantly in the right upper l dustin and left base. These are both stable. Right-sided effusion shows interval improvement with stable position of the Mosca loop catheter in the right base. There may be some superimposed scarring in the left base as well as slight worsening in the left-sided effusion. Heart size is grossly normal. Life support tubes all remain stable in position. CONCLUSION: 1. Improving right-sided effusion and right basilar consolidation. 2. Persistent bilateral airspace disease, right upper lobe and left base. Possible worsening left-jaya ed effusion. Ken Teran MD on July 17, 2017 at 5:50 Board Certified Radiologist. This report was verified electronically.
[2017-07-17] MEDS: INSULIN NovoLIN REGULAR SUPPLEMENTAL SCALE SQ SCH ×4 (06:00→17:58)
[2017-07-17 06:06] LABS: ALKALINE PHOSPHATASE 93 U/L (45-117); ALT (GPT) 15 U/L (10-53); ANION GAP 8 MEQ/L (5-15); AST (GOT) 31 U/L (15-37); BICARBONATE 26.4 MEQ/L (21.0-32.0); BLOOD UREA NITROGEN 29 MG/DL (7-18); CHLORIDE 108 MEQ/L (98-107); GLOMERULAR FILTRATION RATE 92 ML/MIN (>89); MAGNESIUM 2.1 MG/DL (1.5-2.5); POTASSIUM 4.7 MEQ/L (3.5-5.1); SODIUM (NA) 142 MEQ/L (136-145); TOTAL BILIRUBIN ADULT 0.2 MG/DL (0.2-1.0)
[2017-07-17 06:11] LABS: HEMO FLAGS AUTO DIFF
[2017-07-17 07:10] LABS: BANDS 5 % (0-6); METAMYELOCYTES 1 % (0-1); MYELOCYTES 3 % (0-0); NEUTROPHIL # MANUAL DIFF 10.9 TH/MM3 (1.8-7.7); PLATELET ESTIMATE SMEAR NORMAL (NORMAL); PLATELET MORPHOLOGY NORMAL (NORMAL); POLYS (SEG NEUTROPHILS) 85 % (16-70); SCAN/DIFF FINAL DIFF MANUAL; WBC DIFF SAMPLE 100
[2017-07-17] MEDS: DOCUSATE SODIUM 50 MG/SENNA 8.6 MG TAB PO SCH ×2 (07:11→20:52)
[2017-07-17] MEDS: cefTRIAXone INJ 2,000 MG in SODIUM CHLORIDE 0.9% INJ 100 ML IV SCH (07:35)
[2017-07-17] MEDS: methylPREDNISolone SOD SUCC 125 MG/2 ML VIAL IV PUSH SCH (07:35)
[2017-07-17] MEDS: LEVOFLOXACIN 750 MG PREMIX INJ 150 ML IV SCH (07:35)
[2017-07-17] MEDS: FAMOTIDINE 20 MG/2 ML VIAL IV PUSH SCH ×2 (07:35→20:52)
[2017-07-17] MEDS: CHLORHEXIDINE 0.12% (ORAL KIT) 15 ML CUP MT SCH ×2 (07:36→20:56)
[2017-07-17] MEDS: SODIUM CHLORIDE 0.9% FLUSH 10 ML FLUSH IV FLUSH SCH ×2 (07:36→21:06)
--- NOTE | 2017-07-17 08:34 | HHI.CCPN ---
Subjective Remarks/Hospital Course 66-year-old female with history of COPD, hypertension, presents to the ER tbrought in by EMS after called stating that his was having respiratory issues. She was found in respiratory distress, GCS 6, and was intubated by EMS for airway protection. They state that she initially sounded like she had rales bilaterally. She is not able to give me any further history. They found that her blood pressure was 70 systolic and started her on IV fluids and Levophed. Subjective: 07/12: still on vasopressors. weaning fio2. remains in shock. mental status still poor, although now purposeful. renal function slowly improving, although remains severely oliguric. 07/13: clinically starting to improve. off vasopressors. fio2 improving. cultures still no growth to date. renal function also improving. 07/14: Remains intubated sedated, encephalopathic. Failed SBT due to tachypnea. UO 2.3 L in 24 hours. On sedation hold do not follow commands. Get CT chest to evaluate loculated effusion 07/15: R pigtail chest tube placed yesterday and 07/14/17. Fluid had appearance of early empyema (yellow cloudy). Pleural fluid studies shows WBC count of 32, 227 with 93% neutrophils. Fluid LDH is 2587 (serum LDH 143) fluid glucose is 44 (serum 158). CTS and ID consulted 07/16: Remains intubated sedated, on sedation hold patient becomes tachypneic. CTS consulted for right empyema. Patient is scheduled for right video-assisted thoracoscopy, with possible thoracotomy by Dr. Carpio 07/17/17. ID also following. CT chest from yesterday shows right upper lobe lobe and left lower lobe cavitating pneumonia, bilateral small effusions. Remains critically ill but stabilizing 07/17 Patient is sedated and intubated. Afebrile. For right VATS/thoracotomy and pleurodesis today. Objective Vital Signs Date Time Temp Pulse Resp B/P (MAP) Pulse Ox O2 Delivery O2 Flow Rate FiO2 07/17/17 07:13 53 111/69 07/17/17 04:36 100 40 07/17/17 04:00 97.7 18 07/15/17 19:00 Mechanical Ventilator Intake and Output 07/17/17 07/17/17 07/18/17 08:00 16:00 00:00 Intake Total 844 ml Output Total 730 ml Balance 114 ml Result Diagram: 07/17/17 0431 07/17/17 0431 Other Results Laboratory Tests Test 07/17/17 04:31 White Blood Count 11.6 TH/MM3 Red Blood Count 3.03 MIL/MM3 Hemoglobin 8.1 GM/DL Hematocrit 25.2 % Mean Corpuscular Volume 83.2 FL Mean Corpuscular Hemoglobin 26.6 PG Mean Corpuscular Hemoglobin Concent 32.0 % Red Cell Distribution Width 19.1 % Platelet Count 333 TH/MM3 Mean Platelet Volume 7.3 FL Neutrophils (%) (Auto) 93.9 % Lymphocytes (%) (Auto) 4.5 % Monocytes (%) (Auto) 1.6 % Eosinophils (%) (Auto) 0.0 % Basophils (%) (Auto) 0.0 % Neutrophils # (Auto) 10.9 TH/MM3 Lymphocytes # (Auto) 0.5 TH/MM3 Monocytes # (Auto) 0.2 TH/MM3 Eosinophils # (Auto) 0.0 TH/MM3 Basophils # (Auto) 0.0 TH/MM3 CBC Comment AUTO DIFF Differential Total Cells Counted 100 Neutrophils % (Manual) 85 % Band Neutrophils % 5 % Lymphocytes % 6 % Neutrophils # (Manual) 10.9 TH/MM3 Metamyelocytes 1 % Myelocytes 3 % Differential Comment FINAL DIFF MANUAL Platelet Estimate NORMAL Platelet Morphology Comment NORMAL Blood Urea Nitrogen 29 MG/DL Creatinine 0.65 MG/DL Random Glucose 113 MG/DL Total Protein 5.2 GM/DL Albumin 1.3 GM/DL Calcium Level 7.8 MG/DL Magnesium Level 2.1 MG/DL Alkaline Phosphatase 93 U/L Aspartate Amino Transf (AST/SGOT) 31 U/L Alanine Aminotransferase (ALT/SGPT) 15 U/L Total Bilirubin 0.2 MG/DL Sodium Level 142 MEQ/L Potassium Level 4.7 MEQ/L Chloride Level 108 MEQ/L Carbon Dioxide Level 26.4 MEQ/L Anion Gap 8 MEQ/L Estimat Glomerular Filtration Rate 92 ML/MIN Imaging Last Impressions Chest X-Ray 07/16/17 0600 Signed Impressions: Service Date/Time: July 04:31 - CONCLUSION: 1. Bilateral patchy airspace disease with some improved aeration in the bases. 2. Persistent bilateral pleural effusions, right greater than left. Right-sided thoracostomy tube laterally in the lower chest is unchanged. Remaining support tubes are also stable in position. Ken Teran MD Chest CT 07/15/17 0000 Signed Impressions: Service Date/Time: Saturday, July 15, 2017 11:25 - CONCLUSION: 1. There are extensive pleural and parenchymal changes. There are densely consolidated areas cavitation involving the right upper lobe and posterior aspect of the left lower lobe concerning for cavitary areas of pneumonia. 2. There are bilateral pleural effusions. The effusion effusions are small in size. There is considerable consolidated lung in the lung bases bilaterally. 3. Old, healed posterior rib fractures on the left. 4. Small pericardial effusion. Kendall Corona MD Objective Remarks GENERAL: Middle-aged female, appears older than stated age. Frail. Critically ill. HEENT: Normocephalic. Atraumatic. Pupils equal, round, reactive, conjugate. Mucous membranes are moist. Orotracheally intubated NECK: Trachea is midline. There is no JVD. CHEST: Endotracheal tube in place. PRVC. 40% FiO2. Coarse rales throughout all lung meek. R pigtail chest tube with approximately 130 ml last 24 hours yellow cloudy fluid CARDIOVASCULAR: Tachycardic rate, regular rhythm. Sinus by telemetry. No appreciable murmurs. ABDOMEN: Soft, nontender, nondistended. No guarding. MUSCULOSKELETAL: Pulses 2+. No peripheral edema. NEUROLOGICAL: Purposeful. Follows commands x4 but very lethargic No focal deficits. A/P Assessment and Plan Assessment: This is a 66-year-old female with history of COPD who presents with what appears to be severe bilateral community-acquired pneumonia and associated septic shock, acute hypoxic respiratory failure. Pleural fluid studies concerning for empyema. CT surgery and infectious disease was consulted. End organs starting to improve. Plan by systems: Neurologic: Metabolic encephalopathy - Propofol and fentanyl for goal RASS -2 - Daily sedation vacation when appropriate - frequent neuro checks Respiratory: Acute hypoxic respiratory failure Right sided empyema Severe bilateral community-acquired pneumonia, with cavitation COPD exacerbation - R pigtail chest tube placed 07/14/17. Fluid appearance and fluid studies consistent with empyema Monitor CT drainage ( Drained 110 ml in 24 hrs) - CTS consulted. Dr. Carpio planning for VATS with possible thoracotomy today - Pleural fluid studies shows WBC count of 32,227 with 93% neutrophils. Fluid LDH is 2587 (serum LDH 143) fluid glucose is 44 (serum 158). - CT chest shows cavitating pneumonia involving right upper lobe and left lower lobe - vent bundle, hob at 30 degrees, nebs. steroids( Decrease Solumederol 30mg Q12) , Cardiovascular: Septic shock- resolved. NSTEMI/Type II Demand Ischemia - Unlikely to be ACS. clinically has sepsis syndrome - Monitor HR and BP keep MAP>65mmHg -Echo 07/16 showed EF 50-55%, no vegetations. Renal: Acute Kidney Injury- resolving. - Monitor renal function, I/O's, electrolytes replacement per protocol. FEN/GI: Intravascular Hypovolemia- resolved. Lactic Acidosis- resolved. Acute protein calorie malnutrition- severe - Jevity TF on hold for OR today Heme/ID: Acute Community Acquired Pneumonia with Empyema Septic Shock- resolving. UTI with lactobacillus - Continue Rocephin, Levaquin. Monitor for signs of infections ( Fever, WBC) - Pleural fluid appearance yellow cloudy WBC 32,227 with 93% neutrophils. Fluid LDH is 2587 (serum LDH 143) fluid glucose is 44 (serum 158). - ID-Dr. Luna CTS Dr. Carpio. VATS today - Pertinent cultures. sputum 07/11 MSSA , urine 07/11 lactobacillus - urine legionella and pneumococcal ag negative 07/11 Endocrine: Hyperglycemia of Critical Illness -- SSI Prophylaxis: GI Prophylaxis Pepcid DVT Prophylaxis -- SCDs SQH Lines: 07/11 radial art line-DCd 07/14 07/11 SC TLC Dispo: Continue ICU. CCT 30 min. Updated at the bedside Patient remains critically ill with empyema and cavitating pneumonia. Clinically stabilizing; needs VATS procedure for empyema tomorrow Félix Westbrook MD Jul 17, 2017 08:34
[2017-07-17 09:16] LABS: PROTHROMBIN TIME - PATIENT 11.2 SEC (9.8-11.6)
[2017-07-17] MEDS ORDERED: HEPARIN SODIUM - SQ 10,000 UNITS/ML VIAL ONE (09:30)
[2017-07-17] MEDS ORDERED: BUPIVACAINE LIPOSO PF 1.3% INJ 20 ML, DEXAMETHASONE INJ 4 MG, MORPHINE INJ 8 MG in SODI... IRRIGATION ONE (09:45)
[2017-07-17] MEDS ORDERED: ROCURONIUM INJ 50 MG/5 ML SYRINGE IV PUSH ONE (12:00)
[2017-07-17] MEDS ORDERED: LACTATED RINGER'S 1000 ML INJ 1,000 ML IV ONE (12:00)
[2017-07-17] MEDS ORDERED: PHENYLEPH/NS 1000 MCG/10 ML SYR IV ONE (12:00)
[2017-07-17] MEDS ORDERED: ePHEDrine/NS 25 MG/5 ML SYR IV ONE (12:00)
[2017-07-17] MEDS ORDERED: Post-op Orders (for Pharmacy) MISC OTHER ONE (12:30)
--- NOTE | 2017-07-17 13:22 | EKG ---
Date Performed: 07/16/2017 Time Performed: 15:33:10 PTAGE: 66 years EKG: Sinus rhythm Poor R wave progression - probable normal variant Low QRS voltages in limb leads Borderline ECG Sinc e PREVIOUS TRACING , no significant change noted PREVIOUS TRACIN07/11/2017 06.46 DOCTOR: Heladio Castano Interpretating Date/Time 07/17/2017 13:20:28
[2017-07-17] MEDS: KETOROLAC TROMETHAMINE 30 MG/ML (IVP) VIAL IV PUSH SCH ×2 (14:36→20:52)
[2017-07-17] MEDS: ACETAMINOPHEN 1000 MG/100 ML 100 ML IV SCH ×2 (14:36→17:58)
--- NOTE | 2017-07-17 15:41 | PD.OP ---
cc: Viraj Carpio MD Operative Report Date of Surgery: Jul 17, 2017 Preoperative Diagnosis: Postoperative Diagnosis: Procedure: 1. Right Video Assisted Thoracoscopic Surgery (VATS) 2. Right Posterolateral Muscle Sparing Mini-Thoracotomy 3. Decortication 4. Intercostal Nerve Block Surgeon: Viraj Carpio Mortgage Loan Specialist(s): Danny Sargent Operation and Findings: PREOPERATIVE DIAGNOSIS 1. Right Organized Empyema 2. Loculated Abscess Cavities 3. Pneumonia 4. Respiratory Failure POSTOPERATIVE DIAGNOSIS same PROCEDURES 1. Right Video Assisted Thoracoscopic Surgery (VATS) 2. Right Posterolateral Muscle Sparing Mini-Thoracotomy 3. Decortication 4. Intercostal Nerve Block SURGEON Viraj Carpio MD DIRECTOR HOME HEALTH FERNANDEZ Lujan ANESTHESIA General endotracheal. DRYWALL FINISHER CAITIE Iverson MD OPERATIVE TIME Please see record. COMPLICATIONS None. INDICATION FOR PROCEDURE The patient is a 66 yo lady with respiratory failure (on mechanical ventilation ) and right empyema presenting for surgical correction of above pathology. DESCRIPTION OF PROCEDURE The patient was brought to the operating suite and placed in supine position. Following satisfactory induction of general double-lumen endotracheal anesthesia , the patient was placed in the left lateral decubitus position. The right chest and surrounding area was then prepped and draped in the usual sterile fashion. After localization with a needle, a 5 mm port was placed in the 9th ICS posterior axillary line and the right chest entered. Multiple loculated fluid pockets were encountered and drained. Further exploration revealed a dense peel around the right lung, most prominent over the lower and middle lobes. Additionally, she was not tolerating single lung ventilation very well with persistent desaturations. Given her underlying poor pulmonary reserved and dense empyema, I decided to convert to a mini-thoracotomy to fully decorticate the lung circumferentially while still ventilating it. A mini, muscle-sparing posterolateral thoracotomy was performed and the serratus anterior muscle spared. The pleural space was entered. Exploration of the chest confirmed a stage IV Empyema with a thick peel encasing the lung as well as the parietal pleura. The peel was very densely adherent to the visceral pleura and the underlying lung was very consolidated. Given her underlying pulmonary insufficiency and inability to tolerate single-lung ventilation, the procedure was performed with the right lung ventilated. All loculations and fluid pockets were evacuated. Circumferential decortication was performed and specimen sent for microbiological analysis. The pleural space was copiously irrigated with antibiotic solution. At this point the closure was undertaken. A 32-Chinese chest tube was placed. Intercostal nerve block was performed at the level of the incision and 3 rib spaces above and below using Exparel with Decadron solution. The pericostal space was approximated with interrupted #1 Vicryl sutures in a pericostal fashion. The serratus fascia and Latissimus dorsi were closed with running 0-Vicryl and the remaining wounds closed with 3-0, and 4-0 Monocryl. The patient tolerated the procedure well and postoperatively went to the ICU in stable condition. Viraj Carpio MD Jul 17, 2017 15:41
--- NOTE | 2017-07-17 16:50 | HHI.IDPN ---
Subjective Subjective Remarks Patient is a 66-year-old female, brought into the hospital for evaluation of respiratory distress. apparently noted increasing shortness of breath. EMS was called, and now she was in respiratory distress, and was intubated. In the ER she was hypotensive, and was given fluid resuscitation and pressors. Patient has remained on the vent. She is afebrile. Her initial WBC was 60, 000. Her creatinine was also elevated. Her chest x-ray showed bilateral infiltrates, and she eventually had placement of a chest tube on the right side yesterday. Fluid analysis is showing empyema. Patient's hemodynamics have improved, and she is off pressors. Her creatinine is also improving. Her WBC is also improving. A sputum culture was done and it has MSSA. Legionella and pneumococcal antigen are negative. Infectious disease consultation has been requested to evaluate the patient. Notes reviewed Temps ok Went to surgery today - mini thoracotomy Has one large CT in place - fluid is serosanguineous All C/S with MSSA Sedated on vent BP ok Was in atrial fib, NSR now Not on pressors CTS notes reviewed WBC down to 11 Creatinine normal now Antibiotics Vancomycin Levaquin Rocephin Lines LSC TLC Past Medical History Arthritis Anxiety Hypertension Bronchitis COPD Back pain Ulcers Past Surgical History Hysterectomy Back surgeries TENS unit removed from back Allergies: Coded Allergies: penicillin G (Unverified Allergy, Intermediate, Hives, 07/11/17) Sulfa (Sulfonamide Antibiotics) (Unverified Allergy, Unknown, 07/11/17) Objective . Vital Signs Date Time Temp Pulse Resp B/P (MAP) Pulse Ox O2 Delivery O2 Flow Rate FiO2 07/17/17 16:00 95.4 52 18 133/70 (91) 100 Automatic Cuff 07/17/17 16:00 52 07/17/17 16:00 40 07/17/17 15:10 20 07/17/17 15:10 20 07/17/17 14:00 63 07/17/17 13:58 99 40 07/17/17 08:00 40 07/17/17 08:00 96.4 51 18 118/72 (87) 100 07/17/17 08:00 51 07/17/17 07:13 53 111/69 07/17/17 06:00 57 07/17/17 04:36 100 40 07/17/17 04:00 97.7 56 18 115/67 (83) 100 07/17/17 04:00 56 07/17/17 04:00 40 07/17/17 03:31 100 40 07/17/17 02:00 58 07/17/17 00:00 40 07/17/17 00:00 97.5 65 18 98/68 (78) 100 07/17/17 00:00 65 07/16/17 22:00 76 07/16/17 20:17 100 40 07/16/17 20:00 79 07/16/17 20:00 97.6 79 19 109/69 (82) 98 07/16/17 20:00 40 07/16/17 18:30 75 18 104/65 (78) 96 07/16/17 18:16 76 19 103/66 (78) 98 07/16/17 18:15 76 103/66 07/16/17 18:00 80 07/16/17 18:00 80 20 112/68 (83) 100 07/16/17 17:46 78 22 115/67 (83) 99 07/16/17 17:30 67 18 97/60 (72) 100 07/16/17 17:15 67 18 96/60 (72) 100 07/16/17 17:07 100 40 07/16/17 17:00 66 18 96/65 (75) 100 07/17/17 07/17/17 07/18/17 15:00 23:00 07:00 Intake Total 1950 ml 100 ml Output Total 300 ml Balance 1650 ml 100 ml Intake IV Total 350 ml 100 ml Other 1600 ml Output Urine Total 100 ml Stool Total 100 ml Estimated Blood Loss 100 ml . Laboratory Tests Test 07/16/17 04:25 07/17/17 04:31 White Blood Count 14.8 TH/MM3 11.6 TH/MM3 Red Blood Count 3.07 MIL/MM3 3.03 MIL/MM3 Hemoglobin 8.1 GM/DL 8.1 GM/DL Hematocrit 25.1 % 25.2 % Mean Corpuscular Volume 81.8 FL 83.2 FL Mean Corpuscular Hemoglobin 26.4 PG 26.6 PG Mean Corpuscular Hemoglobin Concent 32.2 % 32.0 % Red Cell Distribution Width 18.5 % 19.1 % Platelet Count 347 TH/MM3 333 TH/MM3 Mean Platelet Volume 7.6 FL 7.3 FL Neutrophils (%) (Auto) 90.0 % 93.9 % Lymphocytes (%) (Auto) 6.2 % 4.5 % Monocytes (%) (Auto) 3.6 % 1.6 % Eosinophils (%) (Auto) 0.1 % 0.0 % Basophils (%) (Auto) 0.1 % 0.0 % Neutrophils # (Auto) 13.3 TH/MM3 10.9 TH/MM3 Lymphocytes # (Auto) 0.9 TH/MM3 0.5 TH/MM3 Monocytes # (Auto) 0.5 TH/MM3 0.2 TH/MM3 Eosinophils # (Auto) 0.0 TH/MM3 0.0 TH/MM3 Basophils # (Auto) 0.0 TH/MM3 0.0 TH/MM3 CBC Comment AUTO DIFF AUTO DIFF Differential Total Cells Counted 100 100 Neutrophils % (Manual) 85 % 85 % Band Neutrophils % 2 % 5 % Lymphocytes % 6 % 6 % Monocytes % 1 % Neutrophils # (Manual) 13.8 TH/MM3 10.9 TH/MM3 Metamyelocytes 4 % 1 % Myelocytes 2 % 3 % Differential Comment FINAL DIFF MANUAL FINAL DIFF MANUAL Platelet Estimate NORMAL NORMAL Platelet Morphology Comment NORMAL NORMAL Ovalocytes 1+ Laboratory Tests Test 07/16/17 04:25 07/17/17 04:31 Blood Urea Nitrogen 31 MG/DL 29 MG/DL Creatinine 0.81 MG/DL 0.65 MG/DL Random Glucose 114 MG/DL 113 MG/DL Total Protein 5.2 GM/DL 5.2 GM/DL Albumin 1.2 GM/DL 1.3 GM/DL Calcium Level 7.6 MG/DL 7.8 MG/DL Magnesium Level 1.9 MG/DL 2.1 MG/DL Alkaline Phosphatase 92 U/L 93 U/L Aspartate Amino Transf (AST/SGOT) 25 U/L 31 U/L Alanine Aminotransferase (ALT/SGPT) 11 U/L 15 U/L Total Bilirubin 0.2 MG/DL 0.2 MG/DL Sodium Level 143 MEQ/L 142 MEQ/L Potassium Level 3.8 MEQ/L 4.7 MEQ/L Chloride Level 108 MEQ/L 108 MEQ/L Carbon Dioxide Level 28.8 MEQ/L 26.4 MEQ/L Anion Gap 6 MEQ/L 8 MEQ/L Estimat Glomerular Filtration Rate 71 ML/MIN 92 ML/MIN Microbiology Date/Time Source Procedure Growth Status 07/15/17 12:13 Fluid Pleural Fluid Gram Stain - Final Resulted 07/15/17 12:13 Body Fluid Culture - Preliminary Staphylococcus Aureus Resulted 07/14/17 17:53 Fluid Pleural Fluid Fungal Smear - Final NO FUNGAL ELEMENTS SEEN. Resulted 07/14/17 17:53 Fluid Pleural Fluid Fungal Culture Pending Resulted 07/14/17 17:53 Fluid Pleural Fluid Acid Fast Stain - Final NO ACID FAST BACILLI SEEN Resulted 07/14/17 17:53 Fluid Pleural Fluid Mycobacterial Culture Pending Resulted 07/14/17 17:53 Fluid Pleural Fluid Gram Stain - Final Complete 07/14/17 17:53 Body Fluid Culture - Final Staphylococcus Aureus Complete Imaging Chest X-Ray 07/16/17 0600 Signed Impressions: Service Date/Time: July 04:31 - CONCLUSION: 1. Bilateral patchy airspace disease with some improved aeration in the bases. 2. Persistent bilateral pleural effusions, right greater than left. Right-sided thoracostomy tube laterally in the lower chest is unchanged. Remaining support tubes are also stable in position. Ken Teran MD Chest CT 07/15/17 0000 Signed Impressions: Service Date/Time: Saturday, July 15, 2017 11:25 - CONCLUSION: 1. There are extensive pleural and parenchymal changes. There are densely consolidated areas cavitation involving the right upper lobe and posterior aspect of the left lower lobe concerning for cavitary areas of pneumonia. 2. There are bilateral pleural effusions. The effusion effusions are small in size. There is considerable consolidated lung in the lung bases bilaterally. 3. Old, healed posterior rib fractures on the left. 4. Small pericardial effusion. Kendall Corona MD Physical Exam GENERAL: sedated on the vent, not in respiratory distress. SKIN: Cool and dry, has mottling in both LE and hands. Has hypopigmented macules in her UE and LE HEAD: Atraumatic. Normocephalic. No temporal wasting, or tenderness. EYES: [place] conjunctiva. No petechia or hemorrhage. Pupils equal, round and reactive to light. No scleral icterus. No injection or drainage. EARS, NOSE AND THROAT: Nose without bleeding or purulent nasal discharge. She is orally intubated NECK: Trachea midline. Supple and not tender, no meningeal signs CARDIOVASCULAR: Distant heart sounds. Regular rate and rhythm. RESPIRATORY: Coarse breath sounds bilaterally, chest tube on the right side, with serosanguineous fluid ABDOMEN: Soft, nondistended, got agitated during abdominal palpation, but no guarding appreciated. Bowel sounds present and normoactive. No organomegaly. EXTREMITIES: No clubbing. Has mottling in both feet and hands, cold. Mild pedal edema. NEUROLOGICAL: Sedated. No Babinski. No ankle clonus. PSYCHIATRIC: Unable to assess LINE: LSC TLC, with no evidence of infection : [place] in place, urine looks clear Assessment & Plan Remarks IMPRESSION Sepsis with shock on presentation due to CAP - hemodynamics better, off pressors Community acquired PNA, wih abscess and with empyema - sputum C/S MSSA - fluid C/S with Staph aureus - S/P mini-thoracotomy Leukocytosis, improving Renal insufficiency due to sepsis, and hypotension, improving Respiratory failure Hx COPD, smoker RECOMMENDATION Change to Ancef Continue Levaquin Follow C/S and adjust Abx Monitor progress D/W Holly Cheatham MD Jul 17, 2017 16:50
[2017-07-17] MEDS: ceFAZolin 2 GM PREMIX 50 ML IV SCH (17:58)
[2017-07-17] MEDS: methylPREDNISolone SOD SUCC 40 MG/1 ML VIAL IV PUSH SCH (20:52)
[2017-07-17] MEDS: VANCOMYCIN INJ 1 GM in SODIUM CHLORIDE 0.9% INJ 250 ML IV SCH (21:05)
[2017-07-18] VITALS (18 sets, daily range): BP systolic 89–135; BP diastolic 49–63; PULSE 72–103; RESP 18–24; TEMP 98.1–99.5; O2SAT 97–100
[2017-07-18] MEDS: ACETAMINOPHEN 1000 MG/100 ML 100 ML IV SCH ×2 (00:22→05:14)
[2017-07-18] MEDS: RESP: ALBUTEROL 2.5 MG/IPRATROPIUM 0.5 MG NEB (SCH) INH ×3 (03:01→14:37)
[2017-07-18] MEDS: KETOROLAC TROMETHAMINE 30 MG/ML (IVP) VIAL IV PUSH SCH ×2 (03:19→09:13)
[2017-07-18] MEDS: ceFAZolin 2 GM PREMIX 50 ML IV SCH ×3 (03:19→18:24)
[2017-07-18] MEDS: CHLORHEXIDINE GLUCONATE 2 % 1 PACK (2 CLOTHS) TOP SCH (03:19)
[2017-07-18 04:26] LABS: AUTOMATED NEUTROPHIL # 15.2 TH/MM3 (1.8-7.7); BASOPHIL % 0.1 % (0.0-2.0); HEMATOCRIT 24.7 % (35.0-46.0); HEMO FLAGS DIFF FINAL; LYMPH % 4.6 % (9.0-44.0); LYMPHOCYTE # 0.8 TH/MM3 (1.0-4.8); MEAN CELL VOLUME 81.4 FL (80.0-100.0); MEAN CORPUSCULAR HEMOGLOBIN 25.5 PG (27.0-34.0); MEAN CORPUSCULAR HGB CONC 31.4 % (32.0-36.0); MONO % 3.8 % (0.0-8.0); NEUT % 91.5 % (16.0-70.0); PLATELET COUNT 338 TH/MM3 (150-450); RED BLOOD COUNT 3.03 MIL/MM3 (4.00-5.30); RED CELL DISTRIBUTION WIDTH 18.7 % (11.6-17.2); WHITE BLOOD COUNT 16.6 TH/MM3 (4.0-11.0)
[2017-07-18 05:04] LABS: BICARBONATE 27.4 MEQ/L (21.0-32.0); MAGNESIUM 2.2 MG/DL (1.5-2.5); POTASSIUM 4.5 MEQ/L (3.5-5.1)
[2017-07-18] MEDS: PROPOFOL 1000 MG/100 ML INJ 100 ML IV SCH ×4 (05:15→23:34)
[2017-07-18 05:18] LABS: CALCIUM-PROTEIN CORRECTED 8.6 MG/DL (8.5-10.1)
[2017-07-18] MEDS: INSULIN NovoLIN REGULAR SUPPLEMENTAL SCALE SQ SCH ×4 (06:00→18:00)
--- NOTE | 2017-07-18 07:31 | HHI.CCPN ---
Subjective Remarks/Hospital Course 66-year-old female with history of COPD, hypertension, presents to the ER tbrought in by EMS after called stating that his was having respiratory issues. She was found in respiratory distress, GCS 6, and was intubated by EMS for airway protection. They state that she initially sounded like she had rales bilaterally. She is not able to give me any further history. They found that her blood pressure was 70 systolic and started her on IV fluids and Levophed. Subjective: 07/12: still on vasopressors. weaning fio2. remains in shock. mental status still poor, although now purposeful. renal function slowly improving, although remains severely oliguric. 07/13: clinically starting to improve. off vasopressors. fio2 improving. cultures still no growth to date. renal function also improving. 07/14: Remains intubated sedated, encephalopathic. Failed SBT due to tachypnea. UO 2.3 L in 24 hours. On sedation hold do not follow commands. Get CT chest to evaluate loculated effusion 07/15: R pigtail chest tube placed yesterday and 07/14/17. Fluid had appearance of early empyema (yellow cloudy). Pleural fluid studies shows WBC count of 32, 227 with 93% neutrophils. Fluid LDH is 2587 (serum LDH 143) fluid glucose is 44 (serum 158). CTS and ID consulted 07/16: Remains intubated sedated, on sedation hold patient becomes tachypneic. CTS consulted for right empyema. Patient is scheduled for right video-assisted thoracoscopy, with possible thoracotomy by Dr. Carpio 07/17/17. ID also following. CT chest from yesterday shows right upper lobe lobe and left lower lobe cavitating pneumonia, bilateral small effusions. Remains critically ill but stabilizing 07/17 Patient is sedated and intubated. Afebrile. For right VATS/thoracotomy and pleurodesis today. 07/18 Patient s/p mini thoracotomy, right VATS, decortication yesterday. Remains sedated with Diprivan. Fentanyl and intubated. Afebrile. Objective Vital Signs Date Time Temp Pulse Resp B/P (MAP) Pulse Ox O2 Delivery O2 Flow Rate FiO2 07/18/17 04:50 100 35 07/18/17 04:00 78 07/17/17 18:19 18 07/17/17 16:00 95.4 133/70 (91) Automatic Cuff 07/15/17 19:00 Mechanical Ventilator Result Diagram: 07/18/17 0405 07/18/17 0405 Other Results Laboratory Tests Test 07/17/17 08:45 07/18/17 04:05 Prothrombin Time 11.2 SEC Prothromb Time International Ratio 1.0 RATIO White Blood Count 16.6 TH/MM3 Red Blood Count 3.03 MIL/MM3 Hemoglobin 7.7 GM/DL Hematocrit 24.7 % Mean Corpuscular Volume 81.4 FL Mean Corpuscular Hemoglobin 25.5 PG Mean Corpuscular Hemoglobin Concent 31.4 % Red Cell Distribution Width 18.7 % Platelet Count 338 TH/MM3 Mean Platelet Volume 7.6 FL Neutrophils (%) (Auto) 91.5 % Lymphocytes (%) (Auto) 4.6 % Monocytes (%) (Auto) 3.8 % Eosinophils (%) (Auto) 0.0 % Basophils (%) (Auto) 0.1 % Neutrophils # (Auto) 15.2 TH/MM3 Lymphocytes # (Auto) 0.8 TH/MM3 Monocytes # (Auto) 0.6 TH/MM3 Eosinophils # (Auto) 0.0 TH/MM3 Basophils # (Auto) 0.0 TH/MM3 CBC Comment DIFF FINAL Differential Comment Blood Urea Nitrogen 32 MG/DL Creatinine 0.78 MG/DL Random Glucose 100 MG/DL Total Protein 5.0 GM/DL Calcium Level 7.4 MG/DL Phosphorus Level 3.6 MG/DL Magnesium Level 2.2 MG/DL Sodium Level 141 MEQ/L Potassium Level 4.5 MEQ/L Chloride Level 108 MEQ/L Carbon Dioxide Level 27.4 MEQ/L Anion Gap 6 MEQ/L Estimat Glomerular Filtration Rate 74 ML/MIN Protein Corrected Calcium 8.6 MG/DL Imaging Last Impressions Chest X-Ray 07/16/17 0600 Signed Impressions: Service Date/Time: July 04:31 - CONCLUSION: 1. Bilateral patchy airspace disease with some improved aeration in the bases. 2. Persistent bilateral pleural effusions, right greater than left. Right-sided thoracostomy tube laterally in the lower chest is unchanged. Remaining support tubes are also stable in position. Ken Teran MD Chest CT 07/15/17 0000 Signed Impressions: Service Date/Time: Saturday, July 15, 2017 11:25 - CONCLUSION: 1. There are extensive pleural and parenchymal changes. There are densely consolidated areas cavitation involving the right upper lobe and posterior aspect of the left lower lobe concerning for cavitary areas of pneumonia. 2. There are bilateral pleural effusions. The effusion effusions are small in size. There is considerable consolidated lung in the lung bases bilaterally. 3. Old, healed posterior rib fractures on the left. 4. Small pericardial effusion. Kendall Corona MD Objective Remarks GENERAL: Middle-aged female, appears older than stated age. Frail. Critically ill. HEENT: Normocephalic. Atraumatic. Pupils equal, round, reactive, conjugate. Mucous membranes are moist. Orotracheally intubated NECK: Trachea is midline. There is no JVD. CHEST: Endotracheal tube in place. PRVC. 40% FiO2. Coarse rales throughout all lung meek. R pigtail chest tube with approximately 130 ml last 24 hours yellow cloudy fluid CARDIOVASCULAR: Tachycardic rate, regular rhythm. Sinus by telemetry. No appreciable murmurs. ABDOMEN: Soft, nontender, nondistended. No guarding. MUSCULOSKELETAL: Pulses 2+. No peripheral edema. NEUROLOGICAL: Purposeful. Follows commands x4 but very lethargic No focal deficits. A/P Assessment and Plan Assessment: This is a 66-year-old female with history of COPD who presents with what appears to be severe bilateral community-acquired pneumonia and associated septic shock, acute hypoxic respiratory failure. Pleural fluid studies concerning for empyema. CT surgery and infectious disease was consulted. End organs starting to improve. Plan by systems: Neurologic: Metabolic encephalopathy - Propofol and fentanyl for goal RASS -2 - Daily sedation vacation when appropriate - frequent neuro checks Respiratory: Acute hypoxic respiratory failure Right sided empyema Severe bilateral community-acquired pneumonia, with cavitation COPD exacerbation - s/p right VATS, mini thoracotomy, decortication 07/17 for organizing empyema. Monitor CT drainage. Check CXR - Pleural fluid studies shows WBC count of 32,227 with 93% neutrophils. Fluid LDH is 2587 (serum LDH 143) fluid glucose is 44 (serum 158). - CT chest shows cavitating pneumonia involving right upper lobe and left lower lobe - vent bundle, hob at 30 degrees, nebs. steroids( Solumederol 30mg Q12), Cardiovascular: Septic shock- resolved. NSTEMI/Type II Demand Ischemia - Unlikely to be ACS. clinically has sepsis syndrome - Monitor HR and BP keep MAP>65mmHg -Echo 07/16 showed EF 50-55%, no vegetations. Renal: Acute Kidney Injury- resolving. - Monitor renal function, I/O's, electrolytes replacement per protocol. FEN/GI: Intravascular Hypovolemia- resolved. Lactic Acidosis- resolved. Acute protein calorie malnutrition- severe - Resume Jevity TF today Heme/ID: Acute Community Acquired Pneumonia with Empyema Septic Shock- resolving. UTI with lactobacillus - Continue Rocephin, Levaquin. Monitor for signs of infections ( Fever, WBC) - Pleural fluid appearance yellow cloudy WBC 32,227 with 93% neutrophils. Fluid LDH is 2587 (serum LDH 143) fluid glucose is 44 (serum 158). - ID-Dr. Luna - Pertinent cultures. sputum 07/11 MSSA , urine 07/11 lactobacillus - urine legionella and pneumococcal ag negative 07/11 Endocrine: Hyperglycemia of Critical Illness -- SSI Prophylaxis: GI Prophylaxis Pepcid DVT Prophylaxis -- SCDs SQH Lines: 07/11 radial art line-DCd 07/14 07/11 SC TLC Dispo: Continue ICU. CCT 30 min. Félix Westbrook MD Jul 18, 2017 07:31
--- NOTE | 2017-07-18 08:00 | RADRPT ---
EXAM DATE/TIME: 07/18/2017 07:43 [facility] COMPARISON: CT THORAX W/O CONTRAST, July 15, 2017, 11:25. CHEST SINGLE AP, July 17, 2017, 4:16. INDICATIONS : Respiratory disease. MEDICAL HISTORY : Hypertension. Chronic obstructive pulmonary disease. SURGICAL HISTORY : Hysterectomy. ENCOUNTER: Subsequent ACUITY: 1 week PAIN SCORE: Non-responsive. LOCATION: Bilateral chest FINDINGS: ET tube come NG tube, and left subclavian line are in good position. The heart size is normal. There is increased density at the bases bilaterally being worse on the left. There is also a focal area of consolidation and possibly cavitary change in the right upper lung measuring 7 cm. There is a right-s ided chest tube in place. A pneumothorax is not seen. Surgical hardware is seen in the cervical spine . There are old healed left rib fractures. CONCLUSION: 1. Persistent prominent areas of consolidation in the right upper lobe, left lower lung, and to lesse r degree right lower lung. The right upper lobe consolidation appears cavitary. 2. New right-sided chest tube. A pneumothorax is not seen. 3. ET tube, NG tube and left subclavian line are well placed. Moustapha Faulkner MD on July 18, 2017 at 7:55 Board Certified Radiologist. This report was verified electronically.
[2017-07-18] MEDS: SODIUM CHLORIDE 0.9% FLUSH 10 ML FLUSH IV FLUSH SCH ×2 (09:00→21:47)
[2017-07-18] MEDS: DOCUSATE SODIUM 50 MG/SENNA 8.6 MG TAB PO SCH ×2 (09:12→21:49)
[2017-07-18] MEDS: methylPREDNISolone SOD SUCC 40 MG/1 ML VIAL IV PUSH SCH ×2 (09:12→21:48)
[2017-07-18] MEDS: CHLORHEXIDINE 0.12% (ORAL KIT) 15 ML CUP MT SCH ×2 (09:13→23:34)
[2017-07-18] MEDS: FAMOTIDINE 20 MG/2 ML VIAL IV PUSH SCH ×2 (09:14→21:48)
[2017-07-18] MEDS: VANCOMYCIN INJ 1 GM in SODIUM CHLORIDE 0.9% INJ 250 ML IV SCH (09:14)
[2017-07-18] MEDS: HYDROmorphone HCL PF 1 MG/ML VIAL IV PUSH PRN ×2 (16:18→22:22)
[2017-07-18] MEDS: fentaNYL DRIP 250 ML IV SCH (16:40)
[2017-07-18] MEDS: RESP: ALBUTEROL 2.5 MG/IPRATROPIUM 0.5 MG NEB (PRN) INH (22:33)
[2017-07-19] VITALS (18 sets, daily range): BP systolic 106–178; BP diastolic 55–83; PULSE 69–111; RESP 18–19; TEMP 97.4–98.4; O2SAT 99–100
[2017-07-19] MEDS: ceFAZolin 2 GM PREMIX 50 ML IV SCH ×3 (02:37→17:20)
[2017-07-19] MEDS: CHLORHEXIDINE GLUCONATE 2 % 1 PACK (2 CLOTHS) TOP SCH (04:00)
[2017-07-19] MEDS: RESP: ALBUTEROL 2.5 MG/IPRATROPIUM 0.5 MG NEB (PRN) INH ×2 (04:33→20:50)
[2017-07-19] MEDS: PROPOFOL 1000 MG/100 ML INJ 100 ML IV SCH ×5 (05:09→21:24)
[2017-07-19] MEDS: INSULIN NovoLIN REGULAR SUPPLEMENTAL SCALE SQ SCH ×4 (05:57→18:00)
[2017-07-19 06:59] LABS: AUTOMATED NEUTROPHIL # 9.9 TH/MM3 (1.8-7.7); BASOPHIL % 0.1 % (0.0-2.0); EOSINOPHIL % 0.1 % (0.0-4.0); HEMO FLAGS DIFF FINAL; LYMPH % 6.8 % (9.0-44.0); LYMPHOCYTE # 0.8 TH/MM3 (1.0-4.8); MEAN CELL VOLUME 82.2 FL (80.0-100.0); MEAN CORPUSCULAR HEMOGLOBIN 26.1 PG (27.0-34.0); MEAN CORPUSCULAR HGB CONC 31.7 % (32.0-36.0); MONO % 3.5 % (0.0-8.0); NEUT % 89.5 % (16.0-70.0); PLATELET COUNT 324 TH/MM3 (150-450); RED BLOOD COUNT 2.67 MIL/MM3 (4.00-5.30); RED CELL DISTRIBUTION WIDTH 19.6 % (11.6-17.2)
[2017-07-19 07:18] LABS: POTASSIUM 4.2 MEQ/L (3.5-5.1)
[2017-07-19] MEDS: SODIUM CHLORIDE 0.9% FLUSH 10 ML FLUSH IV FLUSH SCH ×2 (09:00→21:24)
--- NOTE | 2017-07-19 09:17 | HHI.CCPN ---
Subjective Remarks/Hospital Course 66-year-old female with history of COPD, hypertension, presents to the ER tbrought in by EMS after called stating that his was having respiratory issues. She was found in respiratory distress, GCS 6, and was intubated by EMS for airway protection. They state that she initially sounded like she had rales bilaterally. She is not able to give me any further history. They found that her blood pressure was 70 systolic and started her on IV fluids and Levophed. Subjective: 07/12: still on vasopressors. weaning fio2. remains in shock. mental status still poor, although now purposeful. renal function slowly improving, although remains severely oliguric. 07/13: clinically starting to improve. off vasopressors. fio2 improving. cultures still no growth to date. renal function also improving. 07/14: Remains intubated sedated, encephalopathic. Failed SBT due to tachypnea. UO 2.3 L in 24 hours. On sedation hold do not follow commands. Get CT chest to evaluate loculated effusion 07/15: R pigtail chest tube placed yesterday and 07/14/17. Fluid had appearance of early empyema (yellow cloudy). Pleural fluid studies shows WBC count of 32, 227 with 93% neutrophils. Fluid LDH is 2587 (serum LDH 143) fluid glucose is 44 (serum 158). CTS and ID consulted 07/16: Remains intubated sedated, on sedation hold patient becomes tachypneic. CTS consulted for right empyema. Patient is scheduled for right video-assisted thoracoscopy, with possible thoracotomy by Dr. Carpio 07/17/17. ID also following. CT chest from yesterday shows right upper lobe lobe and left lower lobe cavitating pneumonia, bilateral small effusions. Remains critically ill but stabilizing 07/17 Patient is sedated and intubated. Afebrile. For right VATS/thoracotomy and pleurodesis today. 07/18 Patient s/p mini thoracotomy, right VATS, decortication yesterday. Remains sedated with Diprivan. Fentanyl and intubated. Afebrile. 07/19 No events overnight. Patient did not tolerate CPAP trials yesterday as she became tachypneic, tachycardic and hypertensive. Sedated with Diprivan and Fentanyl drips. Objective Vital Signs Date Time Temp Pulse Resp B/P (MAP) Pulse Ox O2 Delivery O2 Flow Rate FiO2 07/19/17 08:00 100 35 07/19/17 06:00 75 07/19/17 04:00 97.9 18 151/67 (95) 07/15/17 19:00 Mechanical Ventilator Intake and Output 07/19/17 07/19/17 07/19/17 07:59 15:59 23:59 Intake Total 300 ml Output Total 575 ml Balance -275 ml Result Diagram: 07/19/17 0632 07/19/17 0632 Other Results Laboratory Tests Test 07/19/17 06:32 White Blood Count 11.0 TH/MM3 Red Blood Count 2.67 MIL/MM3 Hemoglobin 7.0 GM/DL Hematocrit 22.0 % Mean Corpuscular Volume 82.2 FL Mean Corpuscular Hemoglobin 26.1 PG Mean Corpuscular Hemoglobin Concent 31.7 % Red Cell Distribution Width 19.6 % Platelet Count 324 TH/MM3 Mean Platelet Volume 7.3 FL Neutrophils (%) (Auto) 89.5 % Lymphocytes (%) (Auto) 6.8 % Monocytes (%) (Auto) 3.5 % Eosinophils (%) (Auto) 0.1 % Basophils (%) (Auto) 0.1 % Neutrophils # (Auto) 9.9 TH/MM3 Lymphocytes # (Auto) 0.8 TH/MM3 Monocytes # (Auto) 0.4 TH/MM3 Eosinophils # (Auto) 0.0 TH/MM3 Basophils # (Auto) 0.0 TH/MM3 CBC Comment DIFF FINAL Differential Comment Blood Urea Nitrogen 31 MG/DL Creatinine 0.81 MG/DL Random Glucose 114 MG/DL Calcium Level 7.8 MG/DL Sodium Level 141 MEQ/L Potassium Level 4.2 MEQ/L Chloride Level 109 MEQ/L Carbon Dioxide Level 26.0 MEQ/L Anion Gap 6 MEQ/L Estimat Glomerular Filtration Rate 71 ML/MIN Imaging Last Impressions Chest X-Ray 07/18/17 0000 Signed Impressions: Service Date/Time: Tuesday, July 18, 2017 07:43 - CONCLUSION: 1. Persistent prominent areas of consolidation in the right upper lobe, left lower lung, and to lesser degree right lower lung. The right upper lobe consolidation appears cavitary. 2. New right-sided chest tube. A pneumothorax is not seen. 3. ET tube, NG tube and left subclavian line are well placed. Moustapha Faulkner MD Chest CT 07/15/17 0000 Signed Impressions: Service Date/Time: Saturday, July 15, 2017 11:25 - CONCLUSION: 1. There are extensive pleural and parenchymal changes. There are densely consolidated areas cavitation involving the right upper lobe and posterior aspect of the left lower lobe concerning for cavitary areas of pneumonia. 2. There are bilateral pleural effusions. The effusion effusions are small in size. There is considerable consolidated lung in the lung bases bilaterally. 3. Old, healed posterior rib fractures on the left. 4. Small pericardial effusion. Kendall Corona MD Objective Remarks GENERAL: Middle-aged female, appears older than stated age. Frail. Critically ill. HEENT: Normocephalic. Atraumatic. Pupils equal, round, reactive, conjugate. Mucous membranes are moist. Orotracheally intubated NECK: Trachea is midline. There is no JVD. CHEST: Endotracheal tube in place. PRVC. 40% FiO2. Coarse rales throughout all lung meek. R pigtail chest tube with approximately 130 ml last 24 hours yellow cloudy fluid CARDIOVASCULAR: Tachycardic rate, regular rhythm. Sinus by telemetry. No appreciable murmurs. ABDOMEN: Soft, nontender, nondistended. No guarding. MUSCULOSKELETAL: Pulses 2+. No peripheral edema. NEUROLOGICAL: Purposeful. Follows commands x4 but very lethargic No focal deficits. A/P Assessment and Plan Neurologic: Metabolic encephalopathy - Propofol and fentanyl for goal RASS -2 - Daily sedation vacation when appropriate - frequent neuro checks Respiratory: Acute hypoxic respiratory failure Right sided empyema Severe bilateral community-acquired pneumonia, with cavitation COPD exacerbation - s/p right VATS, mini thoracotomy, decortication 07/17 for organizing empyema. Monitor CT drainage ( drained 250ml in 24 hrs) - CT chest shows cavitating pneumonia involving right upper lobe and left lower lobe - vent bundle, hob at 30 degrees, nebs. steroids( Solumederol 30mg Q12), Cardiovascular: Septic shock- resolved. NSTEMI/Type II Demand Ischemia - Unlikely to be ACS. clinically has sepsis syndrome - Monitor HR and BP keep MAP>65mmHg -Echo 07/16 showed EF 50-55%, no vegetations. Renal: Acute Kidney Injury- resolving. - Monitor renal function, I/O's, electrolytes replacement per protocol. FEN/GI: Intravascular Hypovolemia- resolved. Lactic Acidosis- resolved. Acute protein calorie malnutrition- severe -Continue Jevity TF with goal rate 60ml/hr ID: Acute Community Acquired Pneumonia with Empyema Septic Shock- resolving. UTI with lactobacillus - Continue Ancef, Levaquin. Monitor for signs of infections ( Fever, WBC) - ID-Dr. Luna - Pertinent cultures. sputum 07/11 MSSA , urine 07/11 lactobacillus - urine legionella and pneumococcal ag negative 07/11 Endocrine: Hyperglycemia of Critical Illness -- SSI Heme: Monitor CBC, transfuse 1unit PRBC Prophylaxis: GI Prophylaxis Pepcid DVT Prophylaxis -- SCDs SQH Lines: 07/11 radial art line-DCd 07/14 07/11 SC TLC Dispo: Continue ICU. CCT 30 min. Félix Westbrook MD Jul 19, 2017 09:17
[2017-07-19] MEDS: FAMOTIDINE 20 MG/2 ML VIAL IV PUSH SCH ×2 (09:21→21:25)
[2017-07-19] MEDS: LEVOFLOXACIN 750 MG PREMIX INJ 150 ML IV SCH (09:21)
[2017-07-19] MEDS: DOCUSATE SODIUM 50 MG/SENNA 8.6 MG TAB PO SCH ×2 (09:21→21:29)
[2017-07-19] MEDS: methylPREDNISolone SOD SUCC 40 MG/1 ML VIAL IV PUSH SCH ×2 (09:21→21:27)
[2017-07-19] MEDS: CHLORHEXIDINE 0.12% (ORAL KIT) 15 ML CUP MT SCH ×2 (09:22→21:24)
[2017-07-19] MEDS ORDERED: BUMETANIDE INJ 1 MG/4 ML VIAL IV PUSH ONE (10:00)
[2017-07-19] MEDS: RESP: ALBUTEROL 2.5 MG/IPRATROPIUM 0.5 MG NEB (SCH) NEB ×3 (10:27→14:49)
--- NOTE | 2017-07-19 12:08 | PD.CAR.PN ---
CVT Progress Note Subjective/Hospital Course: 66-year-old female with history of COPD, hypertension, presents to the ER tbrought in by EMS after called stating that his was having respiratory issues. She was found in acute hypercapnic resp failure respiratory distress, GCS 6, and was intubated by EMS for airway protection. Septic shock, place on pressors and resuscitated with IV fluid she has been faily SBT, and found to loculated right pleural effusion, Right pigtail cath was placed by Dr Echavarria, which drained > 1000cc yellow cloudy fluid , Pleural fluid studies shows WBC count of 32,227 with 93% neutrophils. Fluid LDH is 2587 (serum LDH 143) fluid glucose is 44 (serum 158). cultures now showing staph aureus , we were consulted to eval for Right VATS , thoracotomy , pleurodesis 07/16 pt remains on sedation, more awake and following simple commands, chest drained 50cc/ 12 hrs she is now scheduled for surgery in am, consent was received from spouse 07/17 PROCEDURES 1. Right Video Assisted Thoracoscopic Surgery (VATS) 2. Right Posterolateral Muscle Sparing Mini-Thoracotomy 3. Decortication 4. Intercostal Nerve Block 07/19 Remains intubated and mechanically ventilated CT with minimal serous output. No air-leak Maintain to suction Leave CT for at least 72 hrs. Objective: Vital Signs Date Time Temp Pulse Resp B/P (MAP) Pulse Ox O2 Delivery O2 Flow Rate FiO2 07/19/17 08:00 100 35 07/19/17 06:00 75 07/19/17 04:35 99 35 07/19/17 04:00 97.9 74 18 151/67 (95) 100 07/19/17 04:00 91 07/19/17 04:00 35 07/19/17 02:00 91 07/19/17 01:25 100 35 07/19/17 00:00 98.4 87 18 125/55 (78) 100 07/19/17 00:00 87 07/19/17 00:00 35 07/18/17 22:29 100 35 07/18/17 22:00 98 07/18/17 20:00 98.7 89 18 134/60 (84) 97 07/18/17 20:00 89 07/18/17 20:00 35 07/18/17 18:00 87 07/18/17 16:00 35 07/18/17 16:00 98.6 97 19 135/61 (85) 98 07/18/17 16:00 97 07/18/17 14:34 100 35 07/18/17 14:00 103 Labs: Laboratory Tests Test 07/19/17 06:32 White Blood Count 11.0 TH/MM3 (4.0-11.0) Red Blood Count 2.67 MIL/MM3 (4.00-5.30) Hemoglobin 7.0 GM/DL (11.6-15.3) Hematocrit 22.0 % (35.0-46.0) Mean Corpuscular Volume 82.2 FL (80.0-100.0) Mean Corpuscular Hemoglobin 26.1 PG (27.0-34.0) Mean Corpuscular Hemoglobin Concent 31.7 % (32.0-36.0) Red Cell Distribution Width 19.6 % (11.6-17.2) Platelet Count 324 TH/MM3 (150-450) Mean Platelet Volume 7.3 FL (7.0-11.0) Neutrophils (%) (Auto) 89.5 % (16.0-70.0) Lymphocytes (%) (Auto) 6.8 % (9.0-44.0) Monocytes (%) (Auto) 3.5 % (0.0-8.0) Eosinophils (%) (Auto) 0.1 % (0.0-4.0) Basophils (%) (Auto) 0.1 % (0.0-2.0) Neutrophils # (Auto) 9.9 TH/MM3 (1.8-7.7) Lymphocytes # (Auto) 0.8 TH/MM3 (1.0-4.8) Monocytes # (Auto) 0.4 TH/MM3 (0-0.9) Eosinophils # (Auto) 0.0 TH/MM3 (0-0.4) Basophils # (Auto) 0.0 TH/MM3 (0-0.2) CBC Comment DIFF FINAL Differential Comment Blood Urea Nitrogen 31 MG/DL (7-18) Creatinine 0.81 MG/DL (0.50-1.00) Random Glucose 114 MG/DL (74-106) Calcium Level 7.8 MG/DL (8.5-10.1) Sodium Level 141 MEQ/L (136-145) Potassium Level 4.2 MEQ/L (3.5-5.1) Chloride Level 109 MEQ/L (98-107) Carbon Dioxide Level 26.0 MEQ/L (21.0-32.0) Anion Gap 6 MEQ/L (5-15) Estimat Glomerular Filtration Rate 71 ML/MIN (>89) Result Diagram: 07/19/17 0632 07/19/17 0632 (1) Respiratory distress (2) Endotracheally intubated (3) right locualted pleural effusion Plan: for right VATS, thoracotomy and pleurodesis in am (4) Empyema (5) S/P Right Thoracotomy with Decortication Viraj Carpio MD Jul 19, 2017 12:08
[2017-07-19] MEDS: fentaNYL DRIP 250 ML IV SCH (15:41)
[2017-07-19 17:40] LABS: HEMATOCRIT 24.3 % (35.0-46.0); REVIEW FLAG FINAL
[2017-07-20] VITALS (18 sets, daily range): BP systolic 100–169; BP diastolic 54–110; PULSE 69–105; RESP 18–24; TEMP 98–99.1; O2SAT 98–100
[2017-07-20] MEDS: RESP: ALBUTEROL 2.5 MG/IPRATROPIUM 0.5 MG NEB (SCH) NEB ×7 (00:38→23:14)
[2017-07-20] MEDS: PROPOFOL 1000 MG/100 ML INJ 100 ML IV SCH ×5 (01:02→13:23)
[2017-07-20] MEDS: ceFAZolin 2 GM PREMIX 50 ML IV SCH ×3 (03:02→18:07)
[2017-07-20] MEDS: fentaNYL DRIP 250 ML IV SCH ×2 (03:27→13:23)
[2017-07-20] MEDS: CHLORHEXIDINE GLUCONATE 2 % 1 PACK (2 CLOTHS) TOP SCH (04:00)
[2017-07-20 04:39] LABS: AUTOMATED NEUTROPHIL # 12.8 TH/MM3 (1.8-7.7); BASOPHIL % 0.1 % (0.0-2.0); HEMATOCRIT 25.8 % (35.0-46.0); LYMPH % 3.4 % (9.0-44.0); LYMPHOCYTE # 0.5 TH/MM3 (1.0-4.8); MEAN CELL VOLUME 81.7 FL (80.0-100.0); MEAN CORPUSCULAR HEMOGLOBIN 26.5 PG (27.0-34.0); MEAN CORPUSCULAR HGB CONC 32.5 % (32.0-36.0); MONO % 2.4 % (0.0-8.0); NEUT % 94.1 % (16.0-70.0); PLATELET COUNT 328 TH/MM3 (150-450); RED BLOOD COUNT 3.16 MIL/MM3 (4.00-5.30); RED CELL DISTRIBUTION WIDTH 18.7 % (11.6-17.2); WHITE BLOOD COUNT 13.6 TH/MM3 (4.0-11.0)
[2017-07-20 04:40] LABS: HEMO FLAGS AUTO DIFF
[2017-07-20 05:04] LABS: BICARBONATE 24.9 MEQ/L (21.0-32.0); POTASSIUM 4.4 MEQ/L (3.5-5.1)
[2017-07-20 05:18] LABS: CALCIUM-PROTEIN CORRECTED 8.3 MG/DL (8.5-10.1)
[2017-07-20 05:23] LABS: SCAN/DIFF AUTO DIFF CONFIRMED
[2017-07-20] MEDS: INSULIN NovoLIN REGULAR SUPPLEMENTAL SCALE SQ SCH ×4 (06:00→18:00)
--- NOTE | 2017-07-20 08:17 | HHI.CCPN ---
Subjective Remarks/Hospital Course 66-year-old female with history of COPD, hypertension, presents to the ER tbrought in by EMS after called stating that his was having respiratory issues. She was found in respiratory distress, GCS 6, and was intubated by EMS for airway protection. They state that she initially sounded like she had rales bilaterally. She is not able to give me any further history. They found that her blood pressure was 70 systolic and started her on IV fluids and Levophed. Subjective: 07/12: still on vasopressors. weaning fio2. remains in shock. mental status still poor, although now purposeful. renal function slowly improving, although remains severely oliguric. 07/13: clinically starting to improve. off vasopressors. fio2 improving. cultures still no growth to date. renal function also improving. 07/14: Remains intubated sedated, encephalopathic. Failed SBT due to tachypnea. UO 2.3 L in 24 hours. On sedation hold do not follow commands. Get CT chest to evaluate loculated effusion 07/15: R pigtail chest tube placed yesterday and 07/14/17. Fluid had appearance of early empyema (yellow cloudy). Pleural fluid studies shows WBC count of 32, 227 with 93% neutrophils. Fluid LDH is 2587 (serum LDH 143) fluid glucose is 44 (serum 158). CTS and ID consulted 07/16: Remains intubated sedated, on sedation hold patient becomes tachypneic. CTS consulted for right empyema. Patient is scheduled for right video-assisted thoracoscopy, with possible thoracotomy by Dr. Carpio 07/17/17. ID also following. CT chest from yesterday shows right upper lobe lobe and left lower lobe cavitating pneumonia, bilateral small effusions. Remains critically ill but stabilizing 07/17 Patient is sedated and intubated. Afebrile. For right VATS/thoracotomy and pleurodesis today. 07/18 Patient s/p mini thoracotomy, right VATS, decortication yesterday. Remains sedated with Diprivan. Fentanyl and intubated. Afebrile. 07/19 No events overnight. Patient did not tolerate CPAP trials yesterday as she became tachypneic, tachycardic and hypertensive. Sedated with Diprivan and Fentanyl drips. 07/20 Patient remains sedated with Diprivan, fentanyl and intubated. Afebrile. Objective Vital Signs Date Time Temp Pulse Resp B/P (MAP) Pulse Ox O2 Delivery O2 Flow Rate FiO2 07/20/17 07:22 100 35 07/20/17 06:00 69 07/20/17 04:00 98.4 18 143/72 (95) Intake and Output 07/20/17 07/20/17 07/21/17 08:00 16:00 00:00 Intake Total 1080 ml Output Total 975 ml Balance 105 ml Result Diagram: 07/20/17 0420 07/20/17 0420 Other Results Laboratory Tests Test 07/19/17 16:20 07/20/17 04:20 Hemoglobin 8.3 GM/DL 8.4 GM/DL Hematocrit 24.3 % 25.8 % White Blood Count 13.6 TH/MM3 Red Blood Count 3.16 MIL/MM3 Mean Corpuscular Volume 81.7 FL Mean Corpuscular Hemoglobin 26.5 PG Mean Corpuscular Hemoglobin Concent 32.5 % Red Cell Distribution Width 18.7 % Platelet Count 328 TH/MM3 Mean Platelet Volume 7.4 FL Neutrophils (%) (Auto) 94.1 % Lymphocytes (%) (Auto) 3.4 % Monocytes (%) (Auto) 2.4 % Eosinophils (%) (Auto) 0.0 % Basophils (%) (Auto) 0.1 % Neutrophils # (Auto) 12.8 TH/MM3 Lymphocytes # (Auto) 0.5 TH/MM3 Monocytes # (Auto) 0.3 TH/MM3 Eosinophils # (Auto) 0.0 TH/MM3 Basophils # (Auto) 0.0 TH/MM3 CBC Comment AUTO DIFF Differential Comment AUTO DIFF CONFIRMED Blood Urea Nitrogen 27 MG/DL Creatinine 0.75 MG/DL Random Glucose 132 MG/DL Total Protein 5.4 GM/DL Calcium Level 7.4 MG/DL Sodium Level 141 MEQ/L Potassium Level 4.4 MEQ/L Chloride Level 110 MEQ/L Carbon Dioxide Level 24.9 MEQ/L Anion Gap 6 MEQ/L Estimat Glomerular Filtration Rate 78 ML/MIN Protein Corrected Calcium 8.3 MG/DL Imaging Last Impressions Chest X-Ray 07/18/17 0000 Signed Impressions: Service Date/Time: Tuesday, July 18, 2017 07:43 - CONCLUSION: 1. Persistent prominent areas of consolidation in the right upper lobe, left lower lung, and to lesser degree right lower lung. The right upper lobe consolidation appears cavitary. 2. New right-sided chest tube. A pneumothorax is not seen. 3. ET tube, NG tube and left subclavian line are well placed. Moustapha Faulkner MD Chest CT 07/15/17 0000 Signed Impressions: Service Date/Time: Saturday, July 15, 2017 11:25 - CONCLUSION: 1. There are extensive pleural and parenchymal changes. There are densely consolidated areas cavitation involving the right upper lobe and posterior aspect of the left lower lobe concerning for cavitary areas of pneumonia. 2. There are bilateral pleural effusions. The effusion effusions are small in size. There is considerable consolidated lung in the lung bases bilaterally. 3. Old, healed posterior rib fractures on the left. 4. Small pericardial effusion. Kendall Corona MD Objective Remarks GENERAL: Middle-aged female, appears older than stated age. Frail. Critically ill. HEENT: Normocephalic. Atraumatic. Pupils equal, round, reactive, conjugate. Mucous membranes are moist. Orotracheally intubated NECK: Trachea is midline. There is no JVD. CHEST: Endotracheal tube in place. PRVC. 40% FiO2. Coarse rales throughout all lung meek. R pigtail chest tube with approximately 130 ml last 24 hours yellow cloudy fluid CARDIOVASCULAR: Tachycardic rate, regular rhythm. Sinus by telemetry. No appreciable murmurs. ABDOMEN: Soft, nontender, nondistended. No guarding. MUSCULOSKELETAL: Pulses 2+. No peripheral edema. NEUROLOGICAL: Purposeful. Follows commands x4 but very lethargic No focal deficits. A/P Assessment and Plan Neurologic: Metabolic encephalopathy - Propofol and fentanyl for goal RASS -2 - Daily sedation vacation when appropriate - frequent neuro checks Respiratory: Acute hypoxic respiratory failure Right sided empyema Severe bilateral community-acquired pneumonia, with cavitation COPD exacerbation - s/p right VATS, mini thoracotomy, decortication 07/17 for organizing empyema. Monitor CT drainage ( drained 435 ml in 24 hrs) - CT chest shows cavitating pneumonia involving right upper lobe and left lower lobe Continue with vent support keep sat >92% - vent bundle, hob at 30 degrees, nebs. steroids( Solumederol 30mg Q12), -SBT daily as karen. Check CXR/ABG Cardiovascular: Septic shock- resolved. NSTEMI/Type II Demand Ischemia - Unlikely to be ACS. clinically has sepsis syndrome - Monitor HR and BP keep MAP>65mmHg -Echo 07/16 showed EF 50-55%, no vegetations. Renal: Acute Kidney Injury- resolving. - Monitor renal function, I/O's, electrolytes replacement per protocol. FEN/GI: Intravascular Hypovolemia- resolved. Lactic Acidosis- resolved. Acute protein calorie malnutrition- severe -Continue Jevity TF with goal rate 60ml/hr ID: Acute Community Acquired Pneumonia with Empyema Septic Shock- resolving. UTI with lactobacillus - Continue Ancef, Levaquin. Monitor for signs of infections ( Fever, WBC) - ID-Dr. Luna - Pertinent cultures. sputum 07/11 MSSA , urine 07/11 lactobacillus - urine legionella and pneumococcal ag negative 07/11 Endocrine: Hyperglycemia of Critical Illness -- SSI Heme: Monitor CBC, transfuse 1unit PRBC Prophylaxis: GI Prophylaxis Pepcid DVT Prophylaxis -- SCDs SQH Lines: 07/11 SC TLC Dispo: Continue ICU. CCT 30 min. Félix Westbrook MD Jul 20, 2017 08:17
--- NOTE | 2017-07-20 09:11 | HHI.IDPN ---
Subjective Subjective Remarks Patient is a 66-year-old female, brought into the hospital for evaluation of respiratory distress. apparently noted increasing shortness of breath. EMS was called, and now she was in respiratory distress, and was intubated. In the ER she was hypotensive, and was given fluid resuscitation and pressors. Patient has remained on the vent. She is afebrile. Her initial WBC was 60, 000. Her creatinine was also elevated. Her chest x-ray showed bilateral infiltrates, and she eventually had placement of a chest tube on the right side yesterday. Fluid analysis is showing empyema. Patient's hemodynamics have improved, and she is off pressors. Her creatinine is also improving. Her WBC is also improving. A sputum culture was done and it has MSSA. Legionella and pneumococcal antigen are negative. Infectious disease consultation has been requested to evaluate the patient. Notes reviewed Temps ok Remains on the vent, not toerating weaning All C/S with MSSA Sedated on vent BP ok Not on pressors Antibiotics Ancef Levaquin Lines LSC TLC Past Medical History Arthritis Anxiety Hypertension Bronchitis COPD Back pain Ulcers Past Surgical History Hysterectomy Back surgeries TENS unit removed from back Allergies: Coded Allergies: penicillin G (Unverified Allergy, Intermediate, Hives, 07/11/17) Sulfa (Sulfonamide Antibiotics) (Unverified Allergy, Unknown, 07/11/17) Objective . Vital Signs Date Time Temp Pulse Resp B/P (MAP) Pulse Ox O2 Delivery O2 Flow Rate FiO2 07/20/17 07:22 100 35 07/20/17 06:00 69 07/20/17 04:13 100 35 07/20/17 04:00 50 07/20/17 04:00 98.4 74 18 143/72 (95) 100 07/20/17 04:00 74 07/20/17 02:00 79 07/20/17 00:00 78 07/20/17 00:00 98.7 78 18 100/78 (85) 100 07/20/17 00:00 50 07/19/17 22:00 82 07/19/17 21:58 100 35 07/19/17 20:47 99 40 07/19/17 20:00 50 07/19/17 20:00 98.4 69 18 106/55 (72) 99 07/19/17 20:00 69 07/19/17 18:00 85 07/19/17 16:00 93 07/19/17 16:00 50 07/19/17 16:00 97.4 93 18 147/72 (97) 99 07/19/17 14:50 100 50 07/19/17 14:00 78 07/19/17 14:00 50 07/19/17 12:39 100 50 07/19/17 12:00 97.5 111 19 178/83 (114) 100 07/19/17 12:00 50 07/19/17 12:00 111 07/19/17 10:00 50 07/19/17 10:00 87 . Laboratory Tests Test 07/19/17 06:32 07/19/17 16:20 07/20/17 04:20 White Blood Count 11.0 TH/MM3 13.6 TH/MM3 Red Blood Count 2.67 MIL/MM3 3.16 MIL/MM3 Hemoglobin 7.0 GM/DL 8.3 GM/DL 8.4 GM/DL Hematocrit 22.0 % 24.3 % 25.8 % Mean Corpuscular Volume 82.2 FL 81.7 FL Mean Corpuscular Hemoglobin 26.1 PG 26.5 PG Mean Corpuscular Hemoglobin Concent 31.7 % 32.5 % Red Cell Distribution Width 19.6 % 18.7 % Platelet Count 324 TH/MM3 328 TH/MM3 Mean Platelet Volume 7.3 FL 7.4 FL Neutrophils (%) (Auto) 89.5 % 94.1 % Lymphocytes (%) (Auto) 6.8 % 3.4 % Monocytes (%) (Auto) 3.5 % 2.4 % Eosinophils (%) (Auto) 0.1 % 0.0 % Basophils (%) (Auto) 0.1 % 0.1 % Neutrophils # (Auto) 9.9 TH/MM3 12.8 TH/MM3 Lymphocytes # (Auto) 0.8 TH/MM3 0.5 TH/MM3 Monocytes # (Auto) 0.4 TH/MM3 0.3 TH/MM3 Eosinophils # (Auto) 0.0 TH/MM3 0.0 TH/MM3 Basophils # (Auto) 0.0 TH/MM3 0.0 TH/MM3 CBC Comment DIFF FINAL AUTO DIFF Differential Comment AUTO DIFF CONFIRMED Laboratory Tests Test 07/19/17 06:32 07/20/17 04:20 Blood Urea Nitrogen 31 MG/DL 27 MG/DL Creatinine 0.81 MG/DL 0.75 MG/DL Random Glucose 114 MG/DL 132 MG/DL Calcium Level 7.8 MG/DL 7.4 MG/DL Sodium Level 141 MEQ/L 141 MEQ/L Potassium Level 4.2 MEQ/L 4.4 MEQ/L Chloride Level 109 MEQ/L 110 MEQ/L Carbon Dioxide Level 26.0 MEQ/L 24.9 MEQ/L Anion Gap 6 MEQ/L 6 MEQ/L Estimat Glomerular Filtration Rate 71 ML/MIN 78 ML/MIN Total Protein 5.4 GM/DL Protein Corrected Calcium 8.3 MG/DL Imaging Chest X-Ray 07/18/17 0000 Signed Impressions: Service Date/Time: Tuesday, July 18, 2017 07:43 - CONCLUSION: 1. Persistent prominent areas of consolidation in the right upper lobe, left lower lung, and to lesser degree right lower lung. The right upper lobe consolidation appears cavitary. 2. New right-sided chest tube. A pneumothorax is not seen. 3. ET tube, NG tube and left subclavian line are well placed. Moustapha Faulkner MD Chest X-Ray 07/16/17 0600 Signed Impressions: Service Date/Time: July 04:31 - CONCLUSION: 1. Bilateral patchy airspace disease with some improved aeration in the bases. 2. Persistent bilateral pleural effusions, right greater than left. Right-sided thoracostomy tube laterally in the lower chest is unchanged. Remaining support tubes are also stable in position. Ken Teran MD Chest CT 07/15/17 0000 Signed Impressions: Service Date/Time: Saturday, July 15, 2017 11:25 - CONCLUSION: 1. There are extensive pleural and parenchymal changes. There are densely consolidated areas cavitation involving the right upper lobe and posterior aspect of the left lower lobe concerning for cavitary areas of pneumonia. 2. There are bilateral pleural effusions. The effusion effusions are small in size. There is considerable consolidated lung in the lung bases bilaterally. 3. Old, healed posterior rib fractures on the left. 4. Small pericardial effusion. Kendall Corona MD Physical Exam GENERAL: sedated on the vent, not in respiratory distress. SKIN: Cool and dry. Has hypopigmented macules in her UE and LE HEAD: Atraumatic. Normocephalic. No temporal wasting, or tenderness. EYES: [place] conjunctiva. No petechia or hemorrhage. Pupils equal, round and reactive to light. No scleral icterus. No injection or drainage. EARS, NOSE AND THROAT: Nose without bleeding or purulent nasal discharge. She is orally intubated NECK: Trachea midline. Supple and not tender, no meningeal signs CARDIOVASCULAR: Distant heart sounds. Regular rate and rhythm. RESPIRATORY: Coarse breath sounds bilaterally, chest tube on the right side, with serosanguineous fluid ABDOMEN: Soft, nondistended, got agitated during abdominal palpation, but no guarding appreciated. Bowel sounds present and normoactive. No organomegaly. EXTREMITIES: No clubbing. Has mottling in both feet and hands, cold. Mild pedal edema. NEUROLOGICAL: Sedated. No Babinski. No ankle clonus. PSYCHIATRIC: Unable to assess LINE: LSC TLC, with no evidence of infection : [place] in place, urine looks clear Assessment & Plan Remarks IMPRESSION Sepsis with shock on presentation due to CAP - hemodynamics better, off pressors Community acquired PNA, wih abscess and with empyema - sputum C/S MSSA - fluid C/S with Staph aureus - S/P mini-thoracotomy Leukocytosis, improving Renal insufficiency due to sepsis, and hypotension, improving Respiratory failure Hx COPD, smoker RECOMMENDATION Continue Ancef Stop Levaquin Monitor progress Weaning as tolerated per CCM D/W Holly Cheatham MD Jul 20, 2017 09:11
--- NOTE | 2017-07-20 09:32 | RADRPT ---
EXAM DATE/TIME: 07/20/2017 09:06 [facility] COMPARISON: CHEST SINGLE AP, July 18, 2017, 7:43. INDICATIONS : Short of breath. MEDICAL HISTORY : Cardiovascular disease. Chronic obstructive pulmonary disease. SURGICAL HISTORY : Fusion, cervical. ENCOUNTER: Subsequent ACUITY: 1 week PAIN SCORE: Non-responsive. LOCATION: Bilateral chest FINDINGS: A single view of the chest demonstrates persistent airspace disease and right upper lobe, left base a nd right base. Improving aeration in the right base with decreasing atelectasis and effusion. The lef t basilar consolidation/effusion is stable. Right upper lobe lesion laterally is also stable and appe ars to have a cavitary component. Right-sided thoracostomy tube, endotracheal and nasogastric tubes a s well as the left subclavian central venous catheter are all stable in position. CONCLUSION: 1. Improving aeration in the right base. Left basilar consolidation/effusion in cavitary lesion later ally in the right upper lung are basically stable. 2. Stable position of life support tubes. No pneumothorax Ken Teran MD on July 20, 2017 at 9:27 Board Certified Radiologist. This report was verified electronically.
[2017-07-20 09:33] LABS: BLOOD GAS BASE EXCESS -0.3 mmol/L (-2-2); BLOOD GAS CARBOXYHEMOGLOBIN 1.9 % (0-4); BLOOD GAS HCO3 23 mmol/L (22-26); BLOOD GAS METHEMOGLOBIN 1.1 % (0-2); BLOOD GAS O2 HGB SATURATION 95 % (90-100); BLOOD GAS OXYGEN CONTENT 11.2 Vol % (12.0-20.0); BLOOD GAS PCO2 30 mmHg (38-42); BLOOD GAS PO2 87 mmHg (61-120); BLOOD GAS TOTAL HGB 8.3 G/DL (12.0-16.0); CRITICAL VALUE NO; OXYGEN DEVICE VENTILATOR; TEMP CORR TO 98.6
[2017-07-20 09:34] LABS: DRAW SITE ART LINE; FIO2 35 %; STAT NO; VENT SETTINGS PRVC/AC600/18
[2017-07-20] MEDS: DOCUSATE SODIUM 50 MG/SENNA 8.6 MG TAB PO SCH ×2 (09:43→21:00)
[2017-07-20] MEDS: SODIUM CHLORIDE 0.9% FLUSH 10 ML FLUSH IV FLUSH SCH ×2 (09:43→21:44)
[2017-07-20] MEDS: methylPREDNISolone SOD SUCC 40 MG/1 ML VIAL IV PUSH SCH ×2 (09:43→21:46)
[2017-07-20] MEDS: FAMOTIDINE 20 MG/2 ML VIAL IV PUSH SCH ×2 (09:43→21:44)
[2017-07-20] MEDS: CHLORHEXIDINE 0.12% (ORAL KIT) 15 ML CUP MT SCH ×2 (09:44→21:44)
[2017-07-21] VITALS (18 sets, daily range): BP systolic 137–180; BP diastolic 74–98; PULSE 73–97; RESP 18–29; TEMP 97.9–98.6; O2SAT 93–100
[2017-07-21] MEDS: ceFAZolin 2 GM PREMIX 50 ML IV SCH ×3 (00:57→17:58)
[2017-07-21] MEDS: PROPOFOL 1000 MG/100 ML INJ 100 ML IV SCH ×3 (00:58→09:34)
[2017-07-21] MEDS: CHLORHEXIDINE GLUCONATE 2 % 1 PACK (2 CLOTHS) TOP SCH (04:00)
[2017-07-21] MEDS: RESP: ALBUTEROL 2.5 MG/IPRATROPIUM 0.5 MG NEB (SCH) NEB ×5 (04:29→20:42)
[2017-07-21] MEDS: INSULIN NovoLIN REGULAR SUPPLEMENTAL SCALE SQ SCH ×4 (06:00→17:58)
--- NOTE | 2017-07-21 08:49 | HHI.CCPN ---
Subjective Remarks/Hospital Course 66-year-old female with history of COPD, hypertension, presents to the ER tbrought in by EMS after called stating that his was having respiratory issues. She was found in respiratory distress, GCS 6, and was intubated by EMS for airway protection. They state that she initially sounded like she had rales bilaterally. She is not able to give me any further history. They found that her blood pressure was 70 systolic and started her on IV fluids and Levophed. Subjective: 07/12: still on vasopressors. weaning fio2. remains in shock. mental status still poor, although now purposeful. renal function slowly improving, although remains severely oliguric. 07/13: clinically starting to improve. off vasopressors. fio2 improving. cultures still no growth to date. renal function also improving. 07/14: Remains intubated sedated, encephalopathic. Failed SBT due to tachypnea. UO 2.3 L in 24 hours. On sedation hold do not follow commands. Get CT chest to evaluate loculated effusion 07/15: R pigtail chest tube placed yesterday and 07/14/17. Fluid had appearance of early empyema (yellow cloudy). Pleural fluid studies shows WBC count of 32, 227 with 93% neutrophils. Fluid LDH is 2587 (serum LDH 143) fluid glucose is 44 (serum 158). CTS and ID consulted 07/16: Remains intubated sedated, on sedation hold patient becomes tachypneic. CTS consulted for right empyema. Patient is scheduled for right video-assisted thoracoscopy, with possible thoracotomy by Dr. Carpio 07/17/17. ID also following. CT chest from yesterday shows right upper lobe lobe and left lower lobe cavitating pneumonia, bilateral small effusions. Remains critically ill but stabilizing 07/17 Patient is sedated and intubated. Afebrile. For right VATS/thoracotomy and pleurodesis today. 07/18 Patient s/p mini thoracotomy, right VATS, decortication yesterday. Remains sedated with Diprivan. Fentanyl and intubated. Afebrile. 07/19 No events overnight. Patient did not tolerate CPAP trials yesterday as she became tachypneic, tachycardic and hypertensive. Sedated with Diprivan and Fentanyl drips. 07/20 Patient remains sedated with Diprivan, fentanyl and intubated. Afebrile. 07/21 No events overnight. Sedated and intubated. Tolerated CPAP for several hrs yesterday. Afebrile. Objective Vital Signs Date Time Temp Pulse Resp B/P (MAP) Pulse Ox O2 Delivery O2 Flow Rate FiO2 07/21/17 06:00 80 07/21/17 04:18 100 35 07/21/17 04:00 98.1 18 137/74 (95) Intake and Output 07/21/17 07/21/17 07/22/17 08:00 16:00 00:00 Intake Total 697.9 ml Output Total 620 ml Balance 77.9 ml Result Diagram: 07/20/17 0420 07/20/17 0420 Imaging Last Impressions Chest X-Ray 07/20/17 0000 Signed Impressions: Service Date/Time: Thursday, July 20, 2017 09:06 - CONCLUSION: 1. Improving aeration in the right base. Left basilar consolidation/effusion in cavitary lesion laterally in the right upper lung are basically stable. 2. Stable position of life support tubes. No pneumothorax Ken Teran MD Chest CT 07/15/17 0000 Signed Impressions: Service Date/Time: Saturday, July 15, 2017 11:25 - CONCLUSION: 1. There are extensive pleural and parenchymal changes. There are densely consolidated areas cavitation involving the right upper lobe and posterior aspect of the left lower lobe concerning for cavitary areas of pneumonia. 2. There are bilateral pleural effusions. The effusion effusions are small in size. There is considerable consolidated lung in the lung bases bilaterally. 3. Old, healed posterior rib fractures on the left. 4. Small pericardial effusion. Kendall Corona MD Objective Remarks GENERAL: Middle-aged female, appears older than stated age. Frail. Critically ill. HEENT: Normocephalic. Atraumatic. Pupils equal, round, reactive, conjugate. Mucous membranes are moist. Orotracheally intubated NECK: Trachea is midline. There is no JVD. CHEST: Endotracheal tube in place. PRVC. 40% FiO2. Coarse rales throughout all lung meek. R pigtail chest tube with approximately 130 ml last 24 hours yellow cloudy fluid CARDIOVASCULAR: Tachycardic rate, regular rhythm. Sinus by telemetry. No appreciable murmurs. ABDOMEN: Soft, nontender, nondistended. No guarding. MUSCULOSKELETAL: Pulses 2+. No peripheral edema. NEUROLOGICAL: Purposeful. Follows commands x4 but very lethargic No focal deficits. A/P Assessment and Plan Neurologic: Metabolic encephalopathy - Propofol and fentanyl for goal RASS -2 - Daily sedation vacation when appropriate - frequent neuro checks Respiratory: Acute hypoxic respiratory failure Right sided empyema Severe bilateral community-acquired pneumonia, with cavitation COPD exacerbation - s/p right VATS, mini thoracotomy, decortication 07/17 for organizing empyema. Monitor CT drainage ( drained 100 ml in 24 hrs) - CT chest shows cavitating pneumonia involving right upper lobe and left lower lobe Continue with vent support keep sat >92% CXR: Improving aeration in the right base. Left basilar consolidation/effusion in cavitary lesion laterally in the right upper lung are basically stable - vent bundle, hob at 30 degrees, nebs. steroids( Solumederol 30mg Q12), -SBT daily as karen. Cardiovascular: Septic shock- resolved. NSTEMI/Type II Demand Ischemia - Unlikely to be ACS. clinically has sepsis syndrome - Place on Lopressor 25mg Q12- Monitor HR and BP keep MAP>65mmHg -Echo 07/16 showed EF 50-55%, no vegetations. Renal: Acute Kidney Injury- resolving. - Monitor renal function, I/O's, electrolytes replacement per protocol. FEN/GI: Intravascular Hypovolemia- resolved. Lactic Acidosis- resolved. Acute protein calorie malnutrition- severe -Continue Jevity TF with goal rate 60ml/hr ID: Acute Community Acquired Pneumonia with Empyema Septic Shock- resolving. UTI with lactobacillus - Continue Ancef. Monitor for signs of infections ( Fever, WBC) - ID-Dr. Luna - Pertinent cultures. sputum 07/11 MSSA , urine 07/11 lactobacillus - urine legionella and pneumococcal ag negative 07/11 Endocrine: Hyperglycemia of Critical Illness -- SSI Heme: Monitor CBC, s/p transfusion 1unit PRBC 07/19 Prophylaxis: GI Prophylaxis Pepcid DVT Prophylaxis -- SCDs SQH Lines: 07/11 SC TLC Dispo: Continue ICU. Level 3 Félix Westbrook MD Jul 21, 2017 08:48
[2017-07-21] MEDS: CHLORHEXIDINE 0.12% (ORAL KIT) 15 ML CUP MT SCH ×2 (09:33→20:00)
[2017-07-21] MEDS: FAMOTIDINE 20 MG/2 ML VIAL IV PUSH SCH ×2 (09:33→20:44)
[2017-07-21] MEDS: methylPREDNISolone SOD SUCC 40 MG/1 ML VIAL IV PUSH SCH ×2 (09:33→20:43)
[2017-07-21] MEDS: DOCUSATE SODIUM 50 MG/SENNA 8.6 MG TAB PO SCH ×2 (09:34→20:46)
[2017-07-21] MEDS: SODIUM CHLORIDE 0.9% FLUSH 10 ML FLUSH IV FLUSH SCH ×2 (09:34→20:47)
[2017-07-21 09:35] LABS: AUTOMATED NEUTROPHIL # 9.2 TH/MM3 (1.8-7.7); BASOPHIL % 0.2 % (0.0-2.0); EOSINOPHIL % 0.4 % (0.0-4.0); HEMATOCRIT 27.6 % (35.0-46.0); HEMO FLAGS DIFF FINAL; LYMPH % 9.7 % (9.0-44.0); MEAN CELL VOLUME 83.2 FL (80.0-100.0); MEAN CORPUSCULAR HGB CONC 32.5 % (32.0-36.0); MONO % 3.8 % (0.0-8.0); NEUT % 85.9 % (16.0-70.0); PLATELET COUNT 330 TH/MM3 (150-450); RED BLOOD COUNT 3.31 MIL/MM3 (4.00-5.30); RED CELL DISTRIBUTION WIDTH 19.2 % (11.6-17.2); WHITE BLOOD COUNT 10.7 TH/MM3 (4.0-11.0)
[2017-07-21 10:05] LABS: BICARBONATE 25.5 MEQ/L (21.0-32.0); POTASSIUM 4.2 MEQ/L (3.5-5.1)
[2017-07-21] MEDS: METOPROLOL TARTRATE 25 MG TAB PO SCH ×2 (13:30→20:45)
[2017-07-21] MEDS: hydrALAZINE HCL 20 MG/ML VIAL IV PUSH PRN ×2 (14:07→20:47)
[2017-07-21 14:53] LABS: BLOOD GAS BASE EXCESS -0.6 mmol/L (-2-2); BLOOD GAS HCO3 22 mmol/L (22-26); BLOOD GAS METHEMOGLOBIN 1.1 % (0-2); BLOOD GAS O2 HGB SATURATION 95 % (90-100); BLOOD GAS OXYGEN CONTENT 13.2 Vol % (12.0-20.0); BLOOD GAS PCO2 27 mmHg (38-42); BLOOD GAS PO2 94 mmHg (61-120); BLOOD GAS TOTAL HGB 9.8 G/DL (12.0-16.0); CRITICAL VALUE YES; OXYGEN DEVICE VENTILATOR; TEMP CORR TO 98.6
[2017-07-21 14:54] LABS: DRAW SITE RT RADIAL; FIO2 35 %; NUMBER OF ARTERIAL PUNCTURES 1; STAT YES; ULNAR PULSE Y; VENT SETTINGS CPAP 15/8
--- NOTE | 2017-07-21 15:01 | PD.CAR.PN ---
CVT Progress Note Subjective/Hospital Course: 66-year-old female with history of COPD, hypertension, presents to the ER tbrought in by EMS after called stating that his was having respiratory issues. She was found in acute hypercapnic resp failure respiratory distress, GCS 6, and was intubated by EMS for airway protection. Septic shock, place on pressors and resuscitated with IV fluid she has been faily SBT, and found to loculated right pleural effusion, Right pigtail cath was placed by Dr Echavarria, which drained > 1000cc yellow cloudy fluid , Pleural fluid studies shows WBC count of 32,227 with 93% neutrophils. Fluid LDH is 2587 (serum LDH 143) fluid glucose is 44 (serum 158). cultures now showing staph aureus , we were consulted to eval for Right VATS , thoracotomy , pleurodesis 07/16 pt remains on sedation, more awake and following simple commands, chest drained 50cc/ 12 hrs she is now scheduled for surgery in am, consent was received from spouse 07/17 PROCEDURES 1. Right Video Assisted Thoracoscopic Surgery (VATS) 2. Right Posterolateral Muscle Sparing Mini-Thoracotomy 3. Decortication 4. Intercostal Nerve Block 07/19 Remains intubated and mechanically ventilated CT with minimal serous output. No air-leak Maintain to suction Leave CT for at least 72 hrs. 07/21 chest minimal drainage, tolerating CPAP mode, possible extubation today will eval for chest tube removal in am Objective: GENERAL: awake abnd alert SKIN: Warm and dry. dressing in place right chest wall/ HEAD: Normocephalic. EYES: No scleral icterus. No injection or drainage. NECK: Supple, trachea midline. No JVD or lymphadenopathy. CARDIOVASCULAR: Regular rate and rhythm without murmurs, gallops, or rubs. RESPIRATORY: Breath sounds equal bilaterally. No accessory muscle use. chest tube to wall suction , no air leak / 20cc/ 12 hrs GASTROINTESTINAL: Abdomen soft, non-tender, nondistended. MUSCULOSKELETAL: No cyanosis, or edema. BACK: Nontender without obvious deformity. No CVA tenderness. Vital Signs Date Time Temp Pulse Resp B/P (MAP) Pulse Ox O2 Delivery O2 Flow Rate FiO2 07/21/17 14:00 75 07/21/17 12:00 98.6 88 29 172/80 (110) 98 07/21/17 12:00 35 07/21/17 12:00 88 07/21/17 11:23 96 35 07/21/17 10:00 89 07/21/17 09:33 35 07/21/17 09:30 100 35 07/21/17 09:30 35 07/21/17 08:00 98.0 73 24 159/78 (105) 100 07/21/17 08:00 73 07/21/17 08:00 35 07/21/17 06:00 80 07/21/17 04:18 100 35 07/21/17 04:00 35 07/21/17 04:00 98.1 86 18 137/74 (95) 100 07/21/17 04:00 86 07/21/17 02:00 97 07/21/17 01:16 100 35 07/21/17 00:00 35 07/21/17 00:00 91 07/21/17 00:00 98.6 91 18 145/86 (105) 100 Arterial Line 07/20/17 22:16 99 35 07/20/17 22:00 97 07/20/17 20:10 99 35 07/20/17 20:00 98.6 105 20 161/110 (127) 98 07/20/17 20:00 105 07/20/17 20:00 35 07/20/17 18:04 35 07/20/17 18:00 35 07/20/17 18:00 98 07/20/17 16:00 93 07/20/17 16:00 99.1 93 24 169/78 (108) 100 07/20/17 16:00 35 07/20/17 14:59 99 35 Labs: Laboratory Tests Test 07/21/17 09:20 07/21/17 14:40 White Blood Count 10.7 TH/MM3 (4.0-11.0) Red Blood Count 3.31 MIL/MM3 (4.00-5.30) Hemoglobin 8.9 GM/DL (11.6-15.3) Hematocrit 27.6 % (35.0-46.0) Mean Corpuscular Volume 83.2 FL (80.0-100.0) Mean Corpuscular Hemoglobin 27.0 PG (27.0-34.0) Mean Corpuscular Hemoglobin Concent 32.5 % (32.0-36.0) Red Cell Distribution Width 19.2 % (11.6-17.2) Platelet Count 330 TH/MM3 (150-450) Mean Platelet Volume 7.9 FL (7.0-11.0) Neutrophils (%) (Auto) 85.9 % (16.0-70.0) Lymphocytes (%) (Auto) 9.7 % (9.0-44.0) Monocytes (%) (Auto) 3.8 % (0.0-8.0) Eosinophils (%) (Auto) 0.4 % (0.0-4.0) Basophils (%) (Auto) 0.2 % (0.0-2.0) Neutrophils # (Auto) 9.2 TH/MM3 (1.8-7.7) Lymphocytes # (Auto) 1.0 TH/MM3 (1.0-4.8) Monocytes # (Auto) 0.4 TH/MM3 (0-0.9) Eosinophils # (Auto) 0.0 TH/MM3 (0-0.4) Basophils # (Auto) 0.0 TH/MM3 (0-0.2) CBC Comment DIFF FINAL Differential Comment Blood Urea Nitrogen 24 MG/DL (7-18) Creatinine 0.60 MG/DL (0.50-1.00) Random Glucose 99 MG/DL (74-106) Calcium Level 7.7 MG/DL (8.5-10.1) Sodium Level 139 MEQ/L (136-145) Potassium Level 4.2 MEQ/L (3.5-5.1) Chloride Level 108 MEQ/L (98-107) Carbon Dioxide Level 25.5 MEQ/L (21.0-32.0) Anion Gap 6 MEQ/L (5-15) Estimat Glomerular Filtration Rate 101 ML/MIN (>89) Blood Gas Puncture Site RT RADIAL Blood Gas Patient Temperature 98.6 Blood Gas HCO3 22 mmol/L (22-26) Blood Gas Base Excess -0.6 mmol/L (-2-2) Blood Gas Oxygen Saturation 95 % (90-100) Arterial Blood pH 7.52 (7.380-7.420) Arterial Blood Partial Pressure CO2 27 mmHg (38-42) Arterial Blood Partial Pressure O2 94 mmHg (61-120) Arterial Blood Oxygen Content 13.2 Vol % (12.0-20.0) Arterial Blood Carboxyhemoglobin 2.0 % (0-4) Arterial Blood Methemoglobin 1.1 % (0-2) Blood Gas Hemoglobin 9.8 G/DL (12.0-16.0) Oxygen Delivery Device VENTILATOR Blood Gas Ventilator Setting CPAP 15/8 Blood Gas Inspired Oxygen 35 % Result Diagram: 07/21/1791907/21/17919 (1) Respiratory distress (2) Endotracheally intubated (3) right locualted pleural effusion Plan: 1. Right Video Assisted Thoracoscopic Surgery (VATS) 07/17 2. Right Posterolateral Muscle Sparing Mini-Thoracotomy 3. Decortication minimal drainage from chest ttube possible extubation today eval for removal of chest tube in am (4) Empyema (5) S/P Right Thoracotomy with Decortication Desi Henson Jul 21, 2017 15:01
[2017-07-21] MEDS: HYDROmorphone HCL PF 1 MG/ML VIAL IV PUSH PRN ×2 (17:13→22:31)
--- NOTE | 2017-07-21 17:25 | PD.WCN.NOT ---
Wound Consult Description: Received consult for wound management of coccyx from Doctor Pietro Communicated with: EMILY Ramos [facility] [place] and Doctor Pietro for orders Recommendation: Please cleanse buttock area gently with soap and water and pat dry. Apply thick layer of Calazime barrier on buttock and sacral area and leave open to air.OK to not remove all barrier cream, please do not scrub off skin. Keep patient positioned from side to side do not position on back. Please obtain halifax airapy bed or of not available please order K4 bed from [facility] [employer] Additional Information: Patient seen on 5th [place] [facility] [place] of wound to coccyx. Positioned patient to L side for wound assessment with the assistance of EMILY Ramos to reveal non blanchable area of intact skin discoloration over sacral area, indicating deep tissue injury. Deep tissue injury measures 6 cm x 6cm. Patient has dignishield in place with small amount of stool noted on ultra sorb pads under patient. Patient is laying on Bernadette low airloss standard [facility] [place] bed. Two ultrasorb pads in staggered fashion with cloth under pad are underneath patient. EMILY Stark cleansed patient of stool with soap and water and patted dry before applying thick layer of calazime barrier cream. Soiled ultrasorb pads and cloth underpad removed and replaced with 2 ultrasorb pads placed in a staggered fashion with flat turning sheet under neath. Patient positioned to L side with pillows in place for support. Patient has been on Low air loss Bernadette bed since admission, needs low airloss bed with alternating pressure now that she has a DTI. Rosalia Villarreal [facility] Jul 21, 2017 17:25
[2017-07-22] VITALS (17 sets, daily range): BP systolic 160–199; BP diastolic 80–91; PULSE 71–84; RESP 18–27; TEMP 97.6–98.9; O2SAT 91–100
[2017-07-22] MEDS: CHLORHEXIDINE GLUCONATE 2 % 1 PACK (2 CLOTHS) TOP SCH (00:22)
[2017-07-22] MEDS: ceFAZolin 2 GM PREMIX 50 ML IV SCH ×3 (00:22→17:18)
[2017-07-22] MEDS: LABETALOL HCL 100 MG/20 ML VIAL IV PRN ×5 (02:35→22:01)
[2017-07-22] MEDS: HYDROmorphone HCL PF 1 MG/ML VIAL IV PUSH PRN ×6 (02:44→20:20)
--- NOTE | 2017-07-22 03:39 | RADRPT ---
EXAM DATE/TIME: 07/22/2017 02:51 [facility] COMPARISON: CHEST SINGLE AP, July 20, 2017, 9:06. INDICATIONS : Short of breath. MEDICAL HISTORY : Cardiovascular disease. Chronic obstructive pulmonary disease. SURGICAL HISTORY : None. ENCOUNTER: Subsequent ACUITY: 2 weeks PAIN SCORE: 0/10 LOCATION: Bilateral chest FINDINGS: A single portable frontal view the chest shows a right thoracostomy tube without pneumothorax or effu ke. Small amount of subcutaneous air involving the right chest wall. Focal parenchymal density agai n seen within the right upper lobe as well as a intraocular opacity within the left lung base. No dis crete effusions. Heart is normal in size. Spinal fusion plate involving the cervical spine. CONCLUSION: Unchanged exam. No pneumothorax. Bilateral parenchymal opacities. Cassius Tijerina Jr., MD on July 22, 2017 at 3:37 Board Certified Radiologist. This report was verified electronically.
[2017-07-22 03:50] LABS: LEGIONELLA PNEUMO 1 IGG <1:64 titer (< 1:64); LEGIONELLA PNEUMO 1 IGM <1:64 titer (< 1:64); LEGIONELLA PNEUMO 2 IGG <1:64 titer (< 1:64); LEGIONELLA PNEUMO 2 IGM <1:64 titer (< 1:64); LEGIONELLA PNEUMO 3 IGG <1:64 titer (< 1:64); LEGIONELLA PNEUMO 3 IGM <1:64 titer (< 1:64); LEGIONELLA PNEUMO 4 IGG <1:64 titer (< 1:64); LEGIONELLA PNEUMO 4 IGM <1:64 titer (< 1:64); LEGIONELLA PNEUMO 5 IGG <1:64 titer (< 1:64); LEGIONELLA PNEUMO 5 IGM <1:64 titer (< 1:64); LEGIONELLA PNEUMO 6 IGG <1:64 titer (< 1:64); LEGIONELLA PNEUMO 6 IGM <1:64 titer (< 1:64)
[2017-07-22] MEDS: hydrALAZINE HCL 20 MG/ML VIAL IV PUSH PRN ×2 (04:12→20:39)
[2017-07-22] MEDS: RESP: ALBUTEROL 2.5 MG/IPRATROPIUM 0.5 MG NEB (SCH) NEB ×7 (04:44→23:44)
[2017-07-22] MEDS: INSULIN NovoLIN REGULAR SUPPLEMENTAL SCALE SQ SCH ×4 (06:00→17:18)
[2017-07-22 06:23] LABS: BICARBONATE 22.8 MEQ/L (21.0-32.0); POTASSIUM 4.7 MEQ/L (3.5-5.1)
[2017-07-22] MEDS: METOPROLOL TARTRATE 25 MG TAB PO SCH ×2 (07:41→20:19)
[2017-07-22] MEDS: CHLORHEXIDINE 0.12% (ORAL KIT) 15 ML CUP MT SCH ×2 (07:41→20:00)
[2017-07-22] MEDS: DOCUSATE SODIUM 50 MG/SENNA 8.6 MG TAB PO SCH ×2 (07:41→20:19)
[2017-07-22] MEDS: methylPREDNISolone SOD SUCC 40 MG/1 ML VIAL IV PUSH SCH ×2 (09:03→20:19)
[2017-07-22] MEDS: FAMOTIDINE 20 MG/2 ML VIAL IV PUSH SCH ×2 (09:03→20:19)
[2017-07-22] MEDS: SODIUM CHLORIDE 0.9% FLUSH 10 ML FLUSH IV FLUSH SCH ×2 (09:03→20:18)
--- NOTE | 2017-07-22 10:01 | HHI.IDPN ---
Subjective Subjective Allergies: Coded Allergies: penicillin G (Unverified Allergy, Intermediate, Hives, 07/11/17) Sulfa (Sulfonamide Antibiotics) (Unverified Allergy, Unknown, 07/11/17) Holly Luna MD Jul 22, 2017 10:01
--- NOTE | 2017-07-22 10:23 | HHI.IDPN ---
Subjective Subjective Remarks Patient is a 66-year-old female, brought into the hospital for evaluation of respiratory distress. apparently noted increasing shortness of breath. EMS was called, and now she was in respiratory distress, and was intubated. In the ER she was hypotensive, and was given fluid resuscitation and pressors. Patient has remained on the vent. She is afebrile. Her initial WBC was 60, 000. Her creatinine was also elevated. Her chest x-ray showed bilateral infiltrates, and she eventually had placement of a chest tube on the right side yesterday. Fluid analysis is showing empyema. Patient's hemodynamics have improved, and she is off pressors. Her creatinine is also improving. Her WBC is also improving. A sputum culture was done and it has MSSA. Legionella and pneumococcal antigen are negative. Infectious disease consultation has been requested to evaluate the patient. Notes reviewed Temps ok Has been extubated On nasal O2 CT has been removed All C/S with MSSA BP ok Not on pressors Antibiotics Ancef Past Medical History Arthritis Anxiety Hypertension Bronchitis COPD Back pain Ulcers Past Surgical History Hysterectomy Back surgeries TENS unit removed from back Allergies: Coded Allergies: penicillin G (Unverified Allergy, Intermediate, Hives, 07/11/17) Sulfa (Sulfonamide Antibiotics) (Unverified Allergy, Unknown, 07/11/17) Objective . Vital Signs Date Time Temp Pulse Resp B/P (MAP) Pulse Ox O2 Delivery O2 Flow Rate FiO2 07/22/17 08:39 100 Nasal Cannula 2.00 07/22/17 06:55 25 07/22/17 06:00 83 07/22/17 04:47 99 Nasal Cannula 4.00 07/22/17 04:00 97.7 74 23 180/83 (115) 99 07/22/17 04:00 74 07/22/17 02:00 84 07/22/17 00:35 100 Nasal Cannula 4.00 07/22/17 00:00 83 07/22/17 00:00 97.6 83 24 199/91 (127) 91 07/21/17 22:00 88 07/21/17 20:46 93 Nasal Cannula 4.00 07/21/17 20:00 79 07/21/17 20:00 97 Nasal Cannula 4.00 07/21/17 20:00 97.9 79 24 175/80 (111) 97 07/21/17 18:00 81 07/21/17 16:00 97.9 84 28 180/98 (125) 95 07/21/17 16:00 84 07/21/17 15:05 95 Nasal Cannula 4 07/21/17 15:05 100 Nasal Cannula 4.00 07/21/17 15:00 92 Nasal Cannula 4.00 07/21/17 14:00 75 07/21/17 12:00 98.6 88 29 172/80 (110) 98 07/21/17 12:00 35 07/21/17 12:00 88 07/21/17 11:23 96 35 07/22/17 07/22/17 07/23/17 15:00 23:00 07:00 Intake Total 50 ml Balance 50 ml Intake IV Total 50 ml . Laboratory Tests Test 07/21/17 09:20 07/22/17 05:35 White Blood Count 10.7 TH/MM3 Red Blood Count 3.31 MIL/MM3 Hemoglobin 8.9 GM/DL Hematocrit 27.6 % Mean Corpuscular Volume 83.2 FL Mean Corpuscular Hemoglobin 27.0 PG Mean Corpuscular Hemoglobin Concent 32.5 % Red Cell Distribution Width 19.2 % Platelet Count 330 TH/MM3 Mean Platelet Volume 7.9 FL Neutrophils (%) (Auto) 85.9 % Lymphocytes (%) (Auto) 9.7 % Monocytes (%) (Auto) 3.8 % Eosinophils (%) (Auto) 0.4 % Basophils (%) (Auto) 0.2 % Neutrophils # (Auto) 9.2 TH/MM3 Lymphocytes # (Auto) 1.0 TH/MM3 Monocytes # (Auto) 0.4 TH/MM3 Eosinophils # (Auto) 0.0 TH/MM3 Basophils # (Auto) 0.0 TH/MM3 CBC Comment DIFF FINAL Differential Comment Laboratory Tests Test 07/21/17 09:20 07/22/17 05:35 Blood Urea Nitrogen 24 MG/DL 19 MG/DL Creatinine 0.60 MG/DL 0.49 MG/DL Random Glucose 99 MG/DL 81 MG/DL Calcium Level 7.7 MG/DL 7.8 MG/DL Sodium Level 139 MEQ/L 142 MEQ/L Potassium Level 4.2 MEQ/L 4.7 MEQ/L Chloride Level 108 MEQ/L 111 MEQ/L Carbon Dioxide Level 25.5 MEQ/L 22.8 MEQ/L Anion Gap 6 MEQ/L 8 MEQ/L Estimat Glomerular Filtration Rate 101 ML/MIN 127 ML/MIN Imaging Chest X-Ray 07/18/17 0000 Signed Impressions: Service Date/Time: Tuesday, July 18, 2017 07:43 - CONCLUSION: 1. Persistent prominent areas of consolidation in the right upper lobe, left lower lung, and to lesser degree right lower lung. The right upper lobe consolidation appears cavitary. 2. New right-sided chest tube. A pneumothorax is not seen. 3. ET tube, NG tube and left subclavian line are well placed. Moustapha Faulkner MD Chest X-Ray 07/16/17 0600 Signed Impressions: Service Date/Time: July 04:31 - CONCLUSION: 1. Bilateral patchy airspace disease with some improved aeration in the bases. 2. Persistent bilateral pleural effusions, right greater than left. Right-sided thoracostomy tube laterally in the lower chest is unchanged. Remaining support tubes are also stable in position. Ken Teran MD Chest CT 07/15/17 0000 Signed Impressions: Service Date/Time: Saturday, July 15, 2017 11:25 - CONCLUSION: 1. There are extensive pleural and parenchymal changes. There are densely consolidated areas cavitation involving the right upper lobe and posterior aspect of the left lower lobe concerning for cavitary areas of pneumonia. 2. There are bilateral pleural effusions. The effusion effusions are small in size. There is considerable consolidated lung in the lung bases bilaterally. 3. Old, healed posterior rib fractures on the left. 4. Small pericardial effusion. Kendall Corona MD Physical Exam GENERAL: awake, not in distress, looks weak SKIN: Cool and dry. Has hypopigmented macules in her UE and LE EYES: Oval conjunctiva. No petechia or hemorrhage. Pupils equal, round and reactive to light. No scleral icterus. No injection or drainage. EARS, NOSE AND THROAT: Nose without bleeding or purulent nasal discharge. NECK: Trachea midline. Supple and not tender, no meningeal signs CARDIOVASCULAR: Distant heart sounds. Regular rate and rhythm. RESPIRATORY: Coarse breath sounds bilaterally ABDOMEN: Soft, nondistended, but no guarding appreciated. Bowel sounds present and normoactive. No organomegaly. EXTREMITIES: No clubbing. Has mottling in both feet and hands, cold. Mild pedal edema. NEUROLOGICAL: Awake PSYCHIATRIC: cooperative LINE: no evidence of infection : Linares in place, urine looks clear Assessment & Plan Remarks IMPRESSION Sepsis with shock on presentation due to CAP - hemodynamics better, off pressors Community acquired PNA, wih abscess and with empyema - sputum C/S MSSA - fluid C/S with Staph aureus - S/P mini-thoracotomy Leukocytosis, improving Renal insufficiency due to sepsis, and hypotension, improving Respiratory failure Hx COPD, smoker RECOMMENDATION Continue Ancef Monitor progress Monitor respiratory status Will determine course of Rx depending on her progress D/W Holly Cheatham MD Jul 22, 2017 10:23
--- NOTE | 2017-07-22 10:50 | HHI.CCPN ---
Subjective Remarks/Hospital Course 66-year-old female with history of COPD, hypertension, presents to the ER tbrought in by EMS after called stating that his was having respiratory issues. She was found in respiratory distress, GCS 6, and was intubated by EMS for airway protection. They state that she initially sounded like she had rales bilaterally. She is not able to give me any further history. They found that her blood pressure was 70 systolic and started her on IV fluids and Levophed. Subjective: 07/12: still on vasopressors. weaning fio2. remains in shock. mental status still poor, although now purposeful. renal function slowly improving, although remains severely oliguric. 07/13: clinically starting to improve. off vasopressors. fio2 improving. cultures still no growth to date. renal function also improving. 07/14: Remains intubated sedated, encephalopathic. Failed SBT due to tachypnea. UO 2.3 L in 24 hours. On sedation hold do not follow commands. Get CT chest to evaluate loculated effusion 07/15: R pigtail chest tube placed yesterday and 07/14/17. Fluid had appearance of early empyema (yellow cloudy). Pleural fluid studies shows WBC count of 32, 227 with 93% neutrophils. Fluid LDH is 2587 (serum LDH 143) fluid glucose is 44 (serum 158). CTS and ID consulted 07/16: Remains intubated sedated, on sedation hold patient becomes tachypneic. CTS consulted for right empyema. Patient is scheduled for right video-assisted thoracoscopy, with possible thoracotomy by Dr. Carpio 07/17/17. ID also following. CT chest from yesterday shows right upper lobe lobe and left lower lobe cavitating pneumonia, bilateral small effusions. Remains critically ill but stabilizing 07/17 Patient is sedated and intubated. Afebrile. For right VATS/thoracotomy and pleurodesis today. 07/18 Patient s/p mini thoracotomy, right VATS, decortication yesterday. Remains sedated with Diprivan. Fentanyl and intubated. Afebrile. 07/19 No events overnight. Patient did not tolerate CPAP trials yesterday as she became tachypneic, tachycardic and hypertensive. Sedated with Diprivan and Fentanyl drips. 07/20 Patient remains sedated with Diprivan, fentanyl and intubated. Afebrile. 07/21 No events overnight. Sedated and intubated. Tolerated CPAP for several hrs yesterday. Afebrile. 07/22: Extubated yesterday tolerating well. Failed swallow eval yesterday repeat today. CT surgery planning on chest tube removal today. BP elevated, getting when necessary labetalol and hydralazine IV Objective Vital Signs Date Time Temp Pulse Resp B/P (MAP) Pulse Ox O2 Delivery O2 Flow Rate FiO2 07/22/17 08:39 100 Nasal Cannula 2.00 07/22/17 06:55 25 07/22/17 06:00 83 07/22/17 04:00 97.7 180/83 (115) 07/21/17 12:00 35 Intake and Output 07/22/17 07/22/17 07/23/17 08:00 16:00 00:00 Intake Total 50 ml Output Total 870 ml Balance -820 ml Result Diagram: 07/21/17 0920 07/22/17 0535 Other Results Laboratory Tests Test 07/21/17 14:40 Blood Gas Puncture Site RT RADIAL Blood Gas Patient Temperature 98.6 Blood Gas HCO3 22 mmol/L (22-26) Blood Gas Base Excess -0.6 mmol/L (-2-2) Blood Gas Oxygen Saturation 95 % (90-100) Arterial Blood pH 7.52 (7.380-7.420) Arterial Blood Partial Pressure CO2 27 mmHg (38-42) Arterial Blood Partial Pressure O2 94 mmHg (61-120) Arterial Blood Oxygen Content 13.2 Vol % (12.0-20.0) Arterial Blood Carboxyhemoglobin 2.0 % (0-4) Arterial Blood Methemoglobin 1.1 % (0-2) Blood Gas Hemoglobin 9.8 G/DL (12.0-16.0) Oxygen Delivery Device VENTILATOR Blood Gas Ventilator Setting CPAP 15/8 Blood Gas Inspired Oxygen 35 % Imaging Last Impressions Chest X-Ray 07/20/17 0000 Signed Impressions: Service Date/Time: Thursday, July 20, 2017 09:06 - CONCLUSION: 1. Improving aeration in the right base. Left basilar consolidation/effusion in cavitary lesion laterally in the right upper lung are basically stable. 2. Stable position of life support tubes. No pneumothorax Ken Teran MD Chest CT 07/15/17 0000 Signed Impressions: Service Date/Time: Saturday, July 15, 2017 11:25 - CONCLUSION: 1. There are extensive pleural and parenchymal changes. There are densely consolidated areas cavitation involving the right upper lobe and posterior aspect of the left lower lobe concerning for cavitary areas of pneumonia. 2. There are bilateral pleural effusions. The effusion effusions are small in size. There is considerable consolidated lung in the lung bases bilaterally. 3. Old, healed posterior rib fractures on the left. 4. Small pericardial effusion. Kendall Corona MD Objective Remarks GENERAL: Middle-aged female, appears older than stated age. Frail. Critically ill. HEENT: Normocephalic. Atraumatic. Pupils equal, round, reactive, conjugate. Mucous membranes are moist. Orotracheally intubated NECK: Trachea is midline. There is no JVD. CHEST: NC. Few rales at bases. R chest tube with 140 ml output 24 hours CARDIOVASCULAR: Sinus by telemetry. No appreciable murmurs. ABDOMEN: Soft, nontender, nondistended. No guarding. MUSCULOSKELETAL: Pulses 2+. No peripheral edema. NEUROLOGICAL: Purposeful. Follows commands x4 lethargic No focal deficits. A/P Assessment and Plan Neurologic: Metabolic encephalopathy - Off all continuos sedation. Dilaudid when necessary for pain - Neuro checks per ICU protocol Respiratory: Right sided empyema Severe bilateral community-acquired pneumonia, with cavitation Acute hypoxic respiratory failure-resolved COPD exacerbation - s/p right VATS, mini thoracotomy, decortication 07/17 for organizing empyema. Monitor CT drainage ( drained 140 ml in 24 hrs) remove today - CT chest shows cavitating pneumonia involving right upper lobe and left lower lobe - Extubated 07/21/17 tolerating well - CXR: Improving aeration in the right base. Left basilar consolidation/ effusion in cavitary lesion laterally in the right upper lung are basically stable - Nebs. steroids( Solumederol 30mg [id number] to 20 q12), Cardiovascular: Septic shock- resolved. NSTEMI/Type II Demand Ischemia Now hypotensive - Unlikely to be ACS. clinically has sepsis syndrome - On Lopressor 25mg Q12- Monitor HR and BP keep MAP>65mmHg. IV labetalol and IV hydralazine when necessary for systolic blood pressure more than 160 -Echo 07/16 showed EF 50-55%, no vegetations. Renal: Acute Kidney Injury- resolving. - Monitor renal function, I/O's, electrolytes replacement per protocol. FEN/GI: Intravascular Hypovolemia- resolved. Lactic Acidosis- resolved. Acute protein calorie malnutrition- severe -Failed swallow 07/21. Repeat today. May need NGT feeding and medications ID: Acute Community Acquired Pneumonia with Empyema Septic Shock- resolved UTI with lactobacillus - Continue Ancef. Monitor for signs of infections ( Fever, WBC) - ID-Dr. Luna - Pertinent cultures. sputum 07/11 MSSA , urine 07/11 lactobacillus - urine legionella and pneumococcal ag negative 07/11 - Multiple pleural fluid cultures MSSA Endocrine: Hyperglycemia of Critical Illness -- SSI Heme: Monitor CBC, s/p transfusion 1unit PRBC 07/19 Prophylaxis: GI Prophylaxis Pepcid DVT Prophylaxis -- SCDs SQH Lines: 07/11 SC TLC-DC today Dispo: Continue ICU. Level 3 PT/OT evaluate and treat Nika Gerard MD Jul 22, 2017 10:50
[2017-07-22 11:04] LABS: HEMATOCRIT 29.8 % (35.0-46.0); MEAN CELL VOLUME 82.5 FL (80.0-100.0); MEAN CORPUSCULAR HEMOGLOBIN 26.1 PG (27.0-34.0); MEAN CORPUSCULAR HGB CONC 31.6 % (32.0-36.0); PLATELET COUNT 389 TH/MM3 (150-450); RED BLOOD COUNT 3.61 MIL/MM3 (4.00-5.30); RED CELL DISTRIBUTION WIDTH 19.3 % (11.6-17.2); WHITE BLOOD COUNT 15.9 TH/MM3 (4.0-11.0)
[2017-07-22 11:12] LABS: HEMO FLAGS AUTO DIFF
[2017-07-22 12:45] LABS: BANDS 8 % (0-6); NEUTROPHIL # MANUAL DIFF 13.8 TH/MM3 (1.8-7.7); PLATELET ESTIMATE SMEAR NORMAL (NORMAL); PLATELET MORPHOLOGY NORMAL (NORMAL); POLYS (SEG NEUTROPHILS) 79 % (16-70); SCAN/DIFF FINAL DIFF MANUAL; WBC DIFF SAMPLE 100
--- NOTE | 2017-07-22 13:35 | PD.CAR.PN ---
CVT Progress Note Subjective/Hospital Course: 66-year-old female with history of COPD, hypertension, presents to the ER tbrought in by EMS after called stating that his was having respiratory issues. She was found in acute hypercapnic resp failure respiratory distress, GCS 6, and was intubated by EMS for airway protection. Septic shock, place on pressors and resuscitated with IV fluid she has been faily SBT, and found to loculated right pleural effusion, Right pigtail cath was placed by Dr Echavarria, which drained > 1000cc yellow cloudy fluid , Pleural fluid studies shows WBC count of 32,227 with 93% neutrophils. Fluid LDH is 2587 (serum LDH 143) fluid glucose is 44 (serum 158). cultures now showing staph aureus , we were consulted to eval for Right VATS , thoracotomy , pleurodesis 07/16 pt remains on sedation, more awake and following simple commands, chest drained 50cc/ 12 hrs she is now scheduled for surgery in am, consent was received from spouse 07/17 PROCEDURES 1. Right Video Assisted Thoracoscopic Surgery (VATS) 2. Right Posterolateral Muscle Sparing Mini-Thoracotomy 3. Decortication 4. Intercostal Nerve Block 07/19 Remains intubated and mechanically ventilated CT with minimal serous output. No air-leak Maintain to suction Leave CT for at least 72 hrs. 07/21 chest minimal drainage, tolerating CPAP mode, possible extubation today will eval for chest tube removal in am 07/22 pt extubated yesterday , on nasal cannula right lateral chest tube removed without difficulty vaseline gauze pressure dressing applied plan leave current dressing in place x 48 hrs, if drainage then ok to reinforce ok to shower and remove dressing in 48 hrs clean site with soap and water, air dry , leave open to air, for any drainage then place sterile gauze dressing will see prn Objective: GENERAL: more awake and alert SKIN: Warm and dry. chest tube removed , vaseline gauze dressing in place HEAD: Normocephalic. EYES: No scleral icterus. No injection or drainage. NECK: Supple, trachea midline. No JVD or lymphadenopathy. CARDIOVASCULAR: Regular rate and rhythm without murmurs, gallops, or rubs. RESPIRATORY: scattered rhonchi , Breath sounds equal bilaterally. No accessory muscle use. GASTROINTESTINAL: Abdomen soft, non-tender, nondistended. MUSCULOSKELETAL: No cyanosis, or general edema BACK: Nontender without obvious deformity. No CVA tenderness. Vital Signs Date Time Temp Pulse Resp B/P (MAP) Pulse Ox O2 Delivery O2 Flow Rate FiO2 07/22/17 11:43 11 07/22/17 10:00 75 07/22/17 08:39 100 Nasal Cannula 2.00 07/22/17 08:00 97.8 73 23 160/80 (106) 100 07/22/17 08:00 73 07/22/17 07:00 100 Nasal Cannula 2.00 07/22/17 06:00 83 07/22/17 04:47 99 Nasal Cannula 4.00 07/22/17 04:00 97.7 74 23 180/83 (115) 99 07/22/17 04:00 74 07/22/17 02:00 84 07/22/17 00:35 100 Nasal Cannula 4.00 07/22/17 00:00 83 07/22/17 00:00 97.6 83 24 199/91 (127) 91 07/21/17 22:00 88 07/21/17 20:46 93 Nasal Cannula 4.00 07/21/17 20:00 79 07/21/17 20:00 97 Nasal Cannula 4.00 07/21/17 20:00 97.9 79 24 175/80 (111) 97 07/21/17 18:00 81 07/21/17 16:00 97.9 84 28 180/98 (125) 95 07/21/17 16:00 84 07/21/17 15:05 95 Nasal Cannula 4 07/21/17 15:05 100 Nasal Cannula 4.00 07/21/17 15:00 92 Nasal Cannula 4.00 07/21/17 14:00 75 Labs: Laboratory Tests Test 07/22/17 05:35 07/22/17 10:25 Blood Urea Nitrogen 19 MG/DL (7-18) Creatinine 0.49 MG/DL (0.50-1.00) Random Glucose 81 MG/DL (74-106) Calcium Level 7.8 MG/DL (8.5-10.1) Sodium Level 142 MEQ/L (136-145) Potassium Level 4.7 MEQ/L (3.5-5.1) Chloride Level 111 MEQ/L (98-107) Carbon Dioxide Level 22.8 MEQ/L (21.0-32.0) Anion Gap 8 MEQ/L (5-15) Estimat Glomerular Filtration Rate 127 ML/MIN (>89) White Blood Count 15.9 TH/MM3 (4.0-11.0) Red Blood Count 3.61 MIL/MM3 (4.00-5.30) Hemoglobin 9.4 GM/DL (11.6-15.3) Hematocrit 29.8 % (35.0-46.0) Mean Corpuscular Volume 82.5 FL (80.0-100.0) Mean Corpuscular Hemoglobin 26.1 PG (27.0-34.0) Mean Corpuscular Hemoglobin Concent 31.6 % (32.0-36.0) Red Cell Distribution Width 19.3 % (11.6-17.2) Platelet Count 389 TH/MM3 (150-450) Mean Platelet Volume 7.6 FL (7.0-11.0) CBC Comment AUTO DIFF Differential Total Cells Counted 100 Neutrophils % (Manual) 79 % (16-70) Band Neutrophils % 8 % (0-6) Lymphocytes % 13 % (9-44) Neutrophils # (Manual) 13.8 TH/MM3 (1.8-7.7) Differential Comment FINAL DIFF MANUAL Platelet Estimate NORMAL (NORMAL) Platelet Morphology Comment NORMAL (NORMAL) Hematology Comments Result Diagram: 07/22/17 1025 07/22/17 0535 Telemetry: NSR (1) Respiratory distress (2) Endotracheally intubated (3) right locualted pleural effusion Plan: 1. Right Video Assisted Thoracoscopic Surgery (VATS) 07/17 2. Right Posterolateral Muscle Sparing Mini-Thoracotomy 3. Decortication 07/22 chest tube removed without difficulty vaseline gauze dressing to chest cultures pending ID following will see prn (4) Empyema (5) S/P Right Thoracotomy with Decortication Desi Henson Jul 22, 2017 13:35
[2017-07-22] MEDS: ONDANSETRON HCL 4 MG/2 ML VIAL IV PUSH PRN (20:38)
[2017-07-22] MEDS ORDERED: HYDROmorphone HCL PF 1 MG/ML VIAL IV PUSH ONE (23:00)
[2017-07-23] VITALS (13 sets, daily range): BP systolic 141–170; BP diastolic 70–88; PULSE 70–91; RESP 20–29; TEMP 96.8–98.7; O2SAT 90–99
[2017-07-23] MEDS: ceFAZolin 2 GM PREMIX 50 ML IV SCH ×3 (00:44→16:23)
[2017-07-23] MEDS: HYDROmorphone HCL PF 1 MG/ML VIAL IV PUSH PRN ×6 (00:45→20:42)
[2017-07-23] MEDS: RESP: ALBUTEROL 2.5 MG/IPRATROPIUM 0.5 MG NEB (SCH) NEB ×5 (03:46→21:31)
[2017-07-23] MEDS: CHLORHEXIDINE GLUCONATE 2 % 1 PACK (2 CLOTHS) TOP SCH (04:00)
[2017-07-23] MEDS: INSULIN NovoLIN REGULAR SUPPLEMENTAL SCALE SQ SCH ×4 (05:43→17:35)
[2017-07-23] MEDS: ONDANSETRON HCL 4 MG/2 ML VIAL IV PUSH PRN (05:52)
[2017-07-23] MEDS: hydrALAZINE HCL 20 MG/ML VIAL IV PUSH PRN ×2 (05:52→12:54)
[2017-07-23] MEDS: CHLORHEXIDINE 0.12% (ORAL KIT) 15 ML CUP MT SCH (07:28)
[2017-07-23] MEDS: METOPROLOL TARTRATE 25 MG TAB PO SCH ×2 (08:10→20:43)
[2017-07-23] MEDS: FAMOTIDINE 20 MG/2 ML VIAL IV PUSH SCH ×2 (08:11→20:43)
[2017-07-23] MEDS: methylPREDNISolone SOD SUCC 40 MG/1 ML VIAL IV PUSH SCH ×2 (08:11→20:43)
[2017-07-23] MEDS: SODIUM CHLORIDE 0.9% FLUSH 10 ML FLUSH IV FLUSH SCH ×2 (08:12→20:43)
[2017-07-23] MEDS: DOCUSATE SODIUM 50 MG/SENNA 8.6 MG TAB PO SCH ×2 (08:55→20:43)
--- NOTE | 2017-07-23 12:28 | HHI.IDPN ---
Subjective Subjective Remarks Patient is a 66-year-old female, brought into the hospital for evaluation of respiratory distress. apparently noted increasing shortness of breath. EMS was called, and now she was in respiratory distress, and was intubated. In the ER she was hypotensive, and was given fluid resuscitation and pressors. Patient has remained on the vent. She is afebrile. Her initial WBC was 60, 000. Her creatinine was also elevated. Her chest x-ray showed bilateral infiltrates, and she eventually had placement of a chest tube on the right side yesterday. Fluid analysis is showing empyema. Patient's hemodynamics have improved, and she is off pressors. Her creatinine is also improving. Her WBC is also improving. A sputum culture was done and it has MSSA. Legionella and pneumococcal antigen are negative. Infectious disease consultation has been requested to evaluate the patient. Notes reviewed Temps ok Doing well post extubation On RA All C/S with MSSA BP ok Not on pressors Antibiotics Ancef Lines PIV Past Medical History Arthritis Anxiety Hypertension Bronchitis COPD Back pain Ulcers Past Surgical History Hysterectomy Back surgeries TENS unit removed from back Allergies: Coded Allergies: penicillin G (Unverified Allergy, Intermediate, Hives, 07/11/17) Sulfa (Sulfonamide Antibiotics) (Unverified Allergy, Unknown, 07/11/17) Objective . Vital Signs Date Time Temp Pulse Resp B/P (MAP) Pulse Ox O2 Delivery O2 Flow Rate FiO2 07/23/17 10:00 79 07/23/17 08:00 88 07/23/17 08:00 98.1 85 27 141/70 (93) 99 07/23/17 07:43 98 Nasal Cannula 2.00 07/23/17 07:00 95 Nasal Cannula 2.00 07/23/17 06:00 74 07/23/17 04:00 98.6 73 24 153/77 (102) 95 07/23/17 04:00 73 07/23/17 02:00 70 07/23/17 00:00 96.8 72 25 170/81 (110) 90 07/23/17 00:00 72 07/22/17 22:00 71 07/22/17 20:22 97 Nasal Cannula 2.00 07/22/17 20:00 98.9 78 22 184/86 (118) 97 07/22/17 20:00 78 07/22/17 19:00 Nasal Cannula 2.00 35 07/22/17 18:31 25 07/22/17 18:00 82 07/22/17 16:00 98.0 78 27 181/87 (118) 98 07/22/17 16:00 78 07/22/17 14:00 72 07/22/17 13:42 100 Nasal Cannula 2.00 07/23/17 07/23/17 07/24/17 15:00 23:00 07:00 Intake Total 50 ml Balance 50 ml IV Total 50 ml . Laboratory Tests Test 07/22/17 10:25 White Blood Count 15.9 TH/MM3 Red Blood Count 3.61 MIL/MM3 Hemoglobin 9.4 GM/DL Hematocrit 29.8 % Mean Corpuscular Volume 82.5 FL Mean Corpuscular Hemoglobin 26.1 PG Mean Corpuscular Hemoglobin Concent 31.6 % Red Cell Distribution Width 19.3 % Platelet Count 389 TH/MM3 Mean Platelet Volume 7.6 FL CBC Comment AUTO DIFF Differential Total Cells Counted 100 Neutrophils % (Manual) 79 % Band Neutrophils % 8 % Lymphocytes % 13 % Neutrophils # (Manual) 13.8 TH/MM3 Differential Comment FINAL DIFF MANUAL Platelet Estimate NORMAL Platelet Morphology Comment NORMAL Hematology Comments Laboratory Tests Test 07/22/17 05:35 Blood Urea Nitrogen 19 MG/DL Creatinine 0.49 MG/DL Random Glucose 81 MG/DL Calcium Level 7.8 MG/DL Sodium Level 142 MEQ/L Potassium Level 4.7 MEQ/L Chloride Level 111 MEQ/L Carbon Dioxide Level 22.8 MEQ/L Anion Gap 8 MEQ/L Estimat Glomerular Filtration Rate 127 ML/MIN Imaging Chest X-Ray 07/22/17 0000 Signed Impressions: Service Date/Time: Saturday, July 22, 2017 02:51 - CONCLUSION: Unchanged exam. No pneumothorax. Bilateral parenchymal opacities. Cassius Tijerina Jr., MD Chest X-Ray 07/18/17 0000 Signed Impressions: Service Date/Time: Tuesday, July 18, 2017 07:43 - CONCLUSION: 1. Persistent prominent areas of consolidation in the right upper lobe, left lower lung, and to lesser degree right lower lung. The right upper lobe consolidation appears cavitary. 2. New right-sided chest tube. A pneumothorax is not seen. 3. ET tube, NG tube and left subclavian line are well placed. Moustapha Faulkner MD Chest X-Ray 07/16/17 0600 Signed Impressions: Service Date/Time: July 04:31 - CONCLUSION: 1. Bilateral patchy airspace disease with some improved aeration in the bases. 2. Persistent bilateral pleural effusions, right greater than left. Right-sided thoracostomy tube laterally in the lower chest is unchanged. Remaining support tubes are also stable in position. Ken Teran MD Chest CT 07/15/17 0000 Signed Impressions: Service Date/Time: Saturday, July 15, 2017 11:25 - CONCLUSION: 1. There are extensive pleural and parenchymal changes. There are densely consolidated areas cavitation involving the right upper lobe and posterior aspect of the left lower lobe concerning for cavitary areas of pneumonia. 2. There are bilateral pleural effusions. The effusion effusions are small in size. There is considerable consolidated lung in the lung bases bilaterally. 3. Old, healed posterior rib fractures on the left. 4. Small pericardial effusion. Kendall Corona MD Physical Exam GENERAL: awake, not in distress, looks weak SKIN: Cool and dry. Has hypopigmented macules in her UE and LE EYES: [place] conjunctiva. No petechia or hemorrhage. Pupils equal, round and reactive to light. No scleral icterus. No injection or drainage. EARS, NOSE AND THROAT: Nose without bleeding or purulent nasal discharge. NECK: Trachea midline. Supple and not tender, no meningeal signs CARDIOVASCULAR: Distant heart sounds. Regular rate and rhythm. RESPIRATORY: Coarse breath sounds bilaterally ABDOMEN: Soft, nondistended, but no guarding appreciated. Bowel sounds present and normoactive. No organomegaly. EXTREMITIES: No clubbing. Has mottling in both feet and hands, cold. Mild pedal edema. NEUROLOGICAL: Awake PSYCHIATRIC: cooperative LINE: no evidence of infection : [place] in place, urine looks clear Assessment & Plan Remarks IMPRESSION Sepsis with shock on presentation due to CAP - hemodynamics better, off pressors Community acquired PNA, wih abscess and with empyema - sputum C/S MSSA - fluid C/S with Staph aureus - S/P mini-thoracotomy Leukocytosis, up again Renal insufficiency due to sepsis, and hypotension, improving Respiratory failure, tolerating extubation Hx COPD, smoker RECOMMENDATION Continue Ancef UA and C/S Follow CBC Monitor progress Holly Luna MD Jul 23, 2017 12:28
[2017-07-23] MEDS ORDERED: RESP: ALBUTEROL 2.5 MG/3 ML NEB (PRN) NEB (14:30)
--- NOTE | 2017-07-23 14:48 | HHI.CCPN ---
Subjective Remarks/Hospital Course 66-year-old female with history of COPD, hypertension, presents to the ER tbrought in by EMS after called stating that his was having respiratory issues. She was found in respiratory distress, GCS 6, and was intubated by EMS for airway protection. They state that she initially sounded like she had rales bilaterally. She is not able to give me any further history. They found that her blood pressure was 70 systolic and started her on IV fluids and Levophed. 07/12: still on vasopressors. weaning fio2. remains in shock. mental status still poor, although now purposeful. renal function slowly improving, although remains severely oliguric. 07/13: clinically starting to improve. off vasopressors. fio2 improving. cultures still no growth to date. renal function also improving. 07/14: Remains intubated sedated, encephalopathic. Failed SBT due to tachypnea. UO 2.3 L in 24 hours. On sedation hold do not follow commands. Get CT chest to evaluate loculated effusion 07/15: R pigtail chest tube placed yesterday and 07/14/17. Fluid had appearance of early empyema (yellow cloudy). Pleural fluid studies shows WBC count of 32, 227 with 93% neutrophils. Fluid LDH is 2587 (serum LDH 143) fluid glucose is 44 (serum 158). CTS and ID consulted 07/16: Remains intubated sedated, on sedation hold patient becomes tachypneic. CTS consulted for right empyema. Patient is scheduled for right video-assisted thoracoscopy, with possible thoracotomy by Dr. Carpio 07/17/17. ID also following. CT chest from yesterday shows right upper lobe lobe and left lower lobe cavitating pneumonia, bilateral small effusions. Remains critically ill but stabilizing 07/17 Patient is sedated and intubated. Afebrile. For right VATS/thoracotomy and pleurodesis today. 07/18 Patient s/p mini thoracotomy, right VATS, decortication yesterday. Remains sedated with Diprivan. Fentanyl and intubated. Afebrile. 07/19 No events overnight. Patient did not tolerate CPAP trials yesterday as she became tachypneic, tachycardic and hypertensive. Sedated with Diprivan and Fentanyl drips. 07/20 Patient remains sedated with Diprivan, fentanyl and intubated. Afebrile. 07/21 No events overnight. Sedated and intubated. Tolerated CPAP for several hrs yesterday. Afebrile. 07/22: Extubated yesterday tolerating well. Failed swallow eval yesterday repeat today. CT surgery planning on chest tube removal today. BP elevated, getting when necessary labetalol and hydralazine IV Subjective: 07/23: Resting comfortably in no acute distress. On room air. Tolerating nectar thickened diet. Linares placement removed today. Restarting Procardia today Objective Vital Signs Date Time Temp Pulse Resp B/P (MAP) Pulse Ox O2 Delivery O2 Flow Rate FiO2 07/23/17 12:00 98.7 83 29 150/88 (108) 98 07/23/17 07:43 Nasal Cannula 2.00 07/22/17 19:00 35 Intake and Output 07/23/17 07/23/17 07/24/17 08:00 16:00 00:00 Intake Total 300 ml 50 ml Output Total 800 ml Balance -500 ml 50 ml Result Diagram: 07/22/17 1025 07/22/17 0535 Other Results Microbiology Date/Time Source Procedure Growth Status 07/11/17 06:55 Blood Peripheral Aerobic Blood Culture - Final NO GROWTH IN 5 DAYS Complete 07/11/17 06:55 Blood Peripheral Anaerobic Blood Culture - Final NO GROWTH IN 5 DAYS Complete 07/15/17 12:13 Fluid Pleural Fluid Gram Stain - Final Complete 07/15/17 12:13 Body Fluid Culture - Final Staphylococcus Aureus Complete 07/11/17 19:30 Sputum Endotracheal Gram Stain - Final Complete 07/11/17 19:30 Sputum Culture - Final Staphylococcus Aureus Complete 07/11/17 08:30 Urine Random Urine Legionella Antigen - Final PRESUMPTIVE NEGATIVE FOR LEGIONELLA P... Complete Imaging Last Impressions Chest X-Ray 07/22/17 0000 Signed Impressions: Service Date/Time: Saturday, July 22, 2017 02:51 - CONCLUSION: Unchanged exam. No pneumothorax. Bilateral parenchymal opacities. Cassius Tijerina Jr., MD Chest CT 07/15/17 0000 Signed Impressions: Service Date/Time: Saturday, July 15, 2017 11:25 - CONCLUSION: 1. There are extensive pleural and parenchymal changes. There are densely consolidated areas cavitation involving the right upper lobe and posterior aspect of the left lower lobe concerning for cavitary areas of pneumonia. 2. There are bilateral pleural effusions. The effusion effusions are small in size. There is considerable consolidated lung in the lung bases bilaterally. 3. Old, healed posterior rib fractures on the left. 4. Small pericardial effusion. Kendall Corona MD Objective Remarks GENERAL tentorial female, resting in bed in no acute distress HEENT: Normocephalic. Atraumatic. Pupils equal, round, reactive, conjugate. Mucous membranes are moist. Orotracheally intubated NECK: Trachea is midline. There is no JVD. Patient has a left EJ CHEST: NC. Coarse crackles appreciated bilaterally right greater than left. Positive end expiratory wheeze CARDIOVASCULAR: RRR. S1, S2 no S4. No rub ABDOMEN: Soft, nontender, nondistended. No guarding. MUSCULOSKELETAL: Pulses 2+. No significant peripheral edema. NEUROLOGICAL: Cranial nerves II through XII appear grossly intact. Strength is equal symmetric. Normal sensation. Skin - stage I decubitus Urinary Catheter: Yes Assessment to: Remove A/P Assessment and Plan Neuro/Psych: Metabolic encephalopathy - Off all continuos sedation. Dilaudid when necessary for pain - Neuro checks per ICU protocol Respiratory: Right sided empyema/eczematous secondary to staph aureus Severe bilateral community-acquired pneumonia, with cavitation Acute hypoxic respiratory failure-resolved COPD exacerbation - s/p right VATS, mini thoracotomy, decortication 07/17 for organizing empyema. Chest tube discontinued 07/22 - CT chest initially revealed cavitating pneumonia involving right upper lobe and left lower lobe - Extubated 07/21/17 at 1500 and tolerating well - CXR: Repeat 07/22 every morning -Continue albuterol/ipratropium aerosols every 6 hours with albuterol aerosols every 2 hours. Dyspnea - On methylprednisolone 20 mg IV every 12 hours. Wean Cardiovascular: Septic shock- resolved. NSTEMI/Type II Demand Ischemia History of hypertension Pulmonary hypertension - Unlikely to be ACS. clinically has sepsis syndrome - On Lopressor 25mg Q12 and restarted Procardia 10 mg every 8 hours. On Procardia XL 60 mg daily at home.- Monitor HR and BP keep MAP>65mmHg. IV labetalol and IV hydralazine when necessary for systolic blood pressure more than 160 -Echo 07/16 showed EF 50-55%, no vegetations. Small pericardial effusion. Mild pulmonary hypertension 42 mmHg Renal: Acute Kidney Injury- resolving. - Monitor renal function, I/O's, electrolytes replacement per protocol. FEN/GI: Acute protein calorie malnutrition- severe -Currently on nectar thickened liquids. - Famotidine for GI prophylaxis - Docusate sodium/senna 1 tablet twice a day for bowel regimen ID: Acute Community Acquired Pneumonia with MSSA Empyema Septic Shock- resolved UTI with lactobacillus - Continue cefazolin through 07/31 and switch to oral medication 3 weeks - monitor for signs of infections ( Fever, WBC) - ID-Dr. Luna - Pertinent cultures. sputum 07/11 MSSA , urine 07/11 lactobacillus - urine legionella and pneumococcal ag negative 07/11 - Multiple pleural fluid cultures MSSA Endocrine: Hyperglycemia of Critical Illness -- SSI Heme: Anemia Leukocytosis Monitor CBC, s/p transfusion 1unit PRBC 07/19 CBC today pending MSK: Stage I decubitus ulcer Wound care evaluate and treat and follow recommendations Prophylaxis: GI Prophylaxis Famotidine DVT Prophylaxis -- SCDs SQH Lines: Peripheral IV. Level 2 PT/OT evaluate and treat Aydin Correia MD Jul 23, 2017 14:48
[2017-07-23 16:23] LABS: BACTERIA, URINE FEW /hpf; BLOOD, URINE NEG (NEG); GLUCOSE,URINE NEG (NEG); KETONE, URINE NEG (NEG); NITRITE,URINE NEG (NEG); PH, URINE 6.5 (5.0-8.5); SQUAMOUS EPITHELIAL CELL URINE <1 /hpf (0-5); URINE COLOR YELLOW (YELLW/STRAW)
[2017-07-23 16:24] LABS: COMMENT (UR) CATH-CULTURE IND; CULTURE IF INDICATED CATH CULTURE IND
[2017-07-23] MEDS: NIFEdipine 10 MG CAP PO SCH (20:43)
[2017-07-23 22:24] LABS: HEMATOCRIT 32.1 % (35.0-46.0); MEAN CELL VOLUME 83.5 FL (80.0-100.0); MEAN CORPUSCULAR HEMOGLOBIN 26.9 PG (27.0-34.0); MEAN CORPUSCULAR HGB CONC 32.2 % (32.0-36.0); PLATELET COUNT 320 TH/MM3 (150-450); RED BLOOD COUNT 3.84 MIL/MM3 (4.00-5.30); RED CELL DISTRIBUTION WIDTH 19.6 % (11.6-17.2); REVIEW FLAG FINAL; WHITE BLOOD COUNT 15.7 TH/MM3 (4.0-11.0)
[2017-07-24] VITALS (20 sets, daily range): BP systolic 157–189; BP diastolic 77–98; PULSE 69–88; RESP 20–26; TEMP 97.7–98.6; O2SAT 94–99
[2017-07-24] MEDS: ceFAZolin 2 GM PREMIX 50 ML IV SCH ×3 (00:51→18:19)
[2017-07-24] MEDS: HYDROmorphone HCL PF 1 MG/ML VIAL IV PUSH PRN ×6 (00:52→23:51)
[2017-07-24] MEDS: LABETALOL HCL 100 MG/20 ML VIAL IV PRN ×4 (01:05→18:39)
[2017-07-24] MEDS: RESP: ALBUTEROL 2.5 MG/IPRATROPIUM 0.5 MG NEB (SCH) NEB ×4 (03:43→22:07)
[2017-07-24] MEDS: CHLORHEXIDINE GLUCONATE 2 % 1 PACK (2 CLOTHS) TOP SCH (04:00)
[2017-07-24] MEDS: INSULIN NovoLIN REGULAR SUPPLEMENTAL SCALE SQ SCH ×5 (06:00→20:39)
[2017-07-24] MEDS: NIFEdipine 10 MG CAP PO SCH (06:44)
--- NOTE | 2017-07-24 07:39 | RADRPT ---
EXAM DATE/TIME: 07/24/2017 04:44 [facility] COMPARISON: CHEST SINGLE AP, July 22, 2017, 2:51. INDICATIONS : Status post decortication. MEDICAL HISTORY : Cardiovascular disease. Chronic obstructive pulmonary disease. SURGICAL HISTORY : None. ENCOUNTER: Subsequent ACUITY: 2 weeks PAIN SCORE: Non-responsive. LOCATION: chest FINDINGS: A single view of the chest demonstrates removal of right chest tube without pneumothorax. Cavitary co nsolidation right upper lobe persists with pleural thickening and fluid. Also small left effusion. Ba silar airspace disease relatively stable. Previous fusion cervical spine. Remote left upper rib fract ures. CONCLUSION: 1. Removal of right chest tube without pneumothorax. Exam otherwise stable. Chas Sanches MD on July 24, 2017 at 7:36 Board Certified Radiologist. This report was verified electronically.
[2017-07-24] MEDS: CHLORHEXIDINE 0.12% (ORAL KIT) 15 ML CUP MT SCH ×2 (08:00→20:00)
[2017-07-24] MEDS: methylPREDNISolone SOD SUCC 40 MG/1 ML VIAL IV PUSH SCH (08:44)
[2017-07-24] MEDS: METOPROLOL TARTRATE 25 MG TAB PO SCH ×2 (08:44→20:34)
[2017-07-24] MEDS: SODIUM CHLORIDE 0.9% FLUSH 10 ML FLUSH IV FLUSH SCH ×2 (08:45→20:33)
[2017-07-24] MEDS: FAMOTIDINE 20 MG/2 ML VIAL IV PUSH SCH (08:45)
[2017-07-24] MEDS: DOCUSATE SODIUM 50 MG/SENNA 8.6 MG TAB PO SCH ×2 (08:45→20:34)
[2017-07-24] MEDS ORDERED: NITROGLYCERIN 2% OINT 1 GM PACKET TOPICAL PRN (10:15)
--- NOTE | 2017-07-24 10:44 | HHI.CCPN ---
Subjective Remarks/Hospital Course 66-year-old female with history of COPD, hypertension, presents to the ER tbrought in by EMS after called stating that his was having respiratory issues. She was found in respiratory distress, GCS 6, and was intubated by EMS for airway protection. They state that she initially sounded like she had rales bilaterally. She is not able to give me any further history. They found that her blood pressure was 70 systolic and started her on IV fluids and Levophed. 07/12: still on vasopressors. weaning fio2. remains in shock. mental status still poor, although now purposeful. renal function slowly improving, although remains severely oliguric. 07/13: clinically starting to improve. off vasopressors. fio2 improving. cultures still no growth to date. renal function also improving. 07/14: Remains intubated sedated, encephalopathic. Failed SBT due to tachypnea. UO 2.3 L in 24 hours. On sedation hold do not follow commands. Get CT chest to evaluate loculated effusion 07/15: R pigtail chest tube placed yesterday and 07/14/17. Fluid had appearance of early empyema (yellow cloudy). Pleural fluid studies shows WBC count of 32, 227 with 93% neutrophils. Fluid LDH is 2587 (serum LDH 143) fluid glucose is 44 (serum 158). CTS and ID consulted 07/16: Remains intubated sedated, on sedation hold patient becomes tachypneic. CTS consulted for right empyema. Patient is scheduled for right video-assisted thoracoscopy, with possible thoracotomy by Dr. Carpio 07/17/17. ID also following. CT chest from yesterday shows right upper lobe lobe and left lower lobe cavitating pneumonia, bilateral small effusions. Remains critically ill but stabilizing 07/17 Patient is sedated and intubated. Afebrile. For right VATS/thoracotomy and pleurodesis today. 07/18 Patient s/p mini thoracotomy, right VATS, decortication yesterday. Remains sedated with Diprivan. Fentanyl and intubated. Afebrile. 07/19 No events overnight. Patient did not tolerate CPAP trials yesterday as she became tachypneic, tachycardic and hypertensive. Sedated with Diprivan and Fentanyl drips. 07/20 Patient remains sedated with Diprivan, fentanyl and intubated. Afebrile. 07/21 No events overnight. Sedated and intubated. Tolerated CPAP for several hrs yesterday. Afebrile. 07/22: Extubated yesterday tolerating well. Failed swallow eval yesterday repeat today. CT surgery planning on chest tube removal today. BP elevated, getting when necessary labetalol and hydralazine IV 07/23: Resting comfortably in no acute distress. On room air. Tolerating nectar thickened diet. Linares placement removed today. Restarting Procardia today Subjective: 07/24: Receiving as needed labetalol for hypertension. Urinary retention noted. On room air. Complaining of pain in right upper extremity. Objective Vital Signs Date Time Temp Pulse Resp B/P (MAP) Pulse Ox O2 Delivery O2 Flow Rate FiO2 07/24/17 07:25 94 07/24/17 06:00 70 07/24/17 04:00 97.7 20 186/78 (114) 07/23/17 20:00 Nasal Cannula 2.00 07/22/17 19:00 35 Intake and Output 07/24/17 07/24/17 07/25/17 08:00 16:00 00:00 Intake Total 290 ml Output Total 900 ml Balance -610 ml Result Diagram: 07/23/17212407/22/17 0535 Other Results Microbiology Date/Time Source Procedure Growth Status 07/11/17 06:55 Blood Peripheral Aerobic Blood Culture - Final NO GROWTH IN 5 DAYS Complete 07/11/17 06:55 Blood Peripheral Anaerobic Blood Culture - Final NO GROWTH IN 5 DAYS Complete 07/15/17 12:13 Fluid Pleural Fluid Gram Stain - Final Complete 07/15/17 12:13 Body Fluid Culture - Final Staphylococcus Aureus Complete 07/11/17 19:30 Sputum Endotracheal Gram Stain - Final Complete 07/11/17 19:30 Sputum Culture - Final Staphylococcus Aureus Complete 07/23/17 14:45 Urine Catheterized Urine Urine Culture Pending Received Imaging Last Impressions Chest X-Ray 07/24/17 0600 Signed Impressions: Service Date/Time: Monday, July 24, 2017 04:44 - CONCLUSION: 1. Removal of right chest tube without pneumothorax. Exam otherwise stable. Chas Sanches MD Chest CT 07/15/17 0000 Signed Impressions: Service Date/Time: Saturday, July 15, 2017 11:25 - CONCLUSION: 1. There are extensive pleural and parenchymal changes. There are densely consolidated areas cavitation involving the right upper lobe and posterior aspect of the left lower lobe concerning for cavitary areas of pneumonia. 2. There are bilateral pleural effusions. The effusion effusions are small in size. There is considerable consolidated lung in the lung bases bilaterally. 3. Old, healed posterior rib fractures on the left. 4. Small pericardial effusion. Kendall Corona MD Objective Remarks GENERAL: 66-year-old female resting in bed in no acute distress SKIN: Warm and dry. Stage I decubitus ulcer HEAD: Atraumatic. Normocephalic. EYES: Pupils equal and round. No scleral icterus. No injection or drainage. ENT: No nasal bleeding or discharge. Mucous membranes pink and moist. NECK: Trachea midline. No JVD. CARDIOVASCULAR: Regular rate and rhythm. S1, S2 no S4. RESPIRATORY: Coarse rhonchorous breath sounds appreciated bilaterally. No wheezing GASTROINTESTINAL: Abdomen soft, non-tender, nondistended. Hepatic and splenic margins not palpable. MUSCULOSKELETAL: Extremities with trace bilateral lower extremity edema. 1+ left upper extremity edema.. NEUROLOGICAL: Awake and alert. No obvious cranial nerve deficits. Motor grossly within normal limits. 4 out of 5 muscle strength in the arms and legs. Normal speech. PSYCHIATRIC: Appropriate mood and affect; insight and judgment normal. A/P Assessment and Plan Neuro/Psych: Metabolic encephalopathy - resolved - Dilaudid when necessary for pain - Neuro checks per ICU protocol Respiratory: Right sided empyema/eczematous secondary to staph aureus Severe bilateral community-acquired pneumonia, with cavitation Acute hypoxic respiratory failure-resolved COPD exacerbation - s/p right VATS, mini thoracotomy, decortication 07/17 for organizing empyema. Chest tube discontinued 07/22 - CT chest initially revealed cavitating pneumonia involving right upper lobe and left lower lobe - Extubated 07/21/17 at 1500 and tolerating well - CXR: Repeat 07/22 every morning -Continue albuterol/ipratropium aerosols every 6 hours with albuterol aerosols every 2 hours. Dyspnea - On methylprednisolone 20 mg IV every 12 hours. Wean the prednisone 20 no grams by mouth daily today Cardiovascular: Septic shock- resolved. NSTEMI/Type II Demand Ischemia History of hypertension Pulmonary hypertension - Unlikely to be ACS. clinically has sepsis syndrome - On Lopressor 25mg Q12 and restarted Procardia 20 mg every 8 hours. Add hydralazine 10 mg every 8 hours and Isordil 10 mg every 8 hours. On Procardia XL 60 mg daily at home.- Monitor HR and BP keep MAP>65mmHg. IV labetalol and IV hydralazine when necessary for systolic blood pressure more than 160 -Echo 07/16 showed EF 50-55%, no vegetations. Small pericardial effusion. Mild pulmonary hypertension 42 mmHg Renal: Acute Kidney Injury- resolving. - Monitor renal function, I/O's, electrolytes replacement per protocol. FEN/GI: Acute protein calorie malnutrition- severe -Currently on nectar thickened liquids. - Famotidine for GI prophylaxis - Docusate sodium/senna 1 tablet twice a day for bowel regimen ID: Acute Community Acquired Pneumonia with MSSA Empyema Septic Shock- resolved UTI with lactobacillus - Continue cefazolin through 07/31 and switch to oral medication 3 weeks - monitor for signs of infections ( Fever, WBC) - ID-Dr. Luna - Pertinent cultures. sputum 07/11 MSSA , urine 07/11 lactobacillus - urine legionella and pneumococcal ag negative 07/11 - Multiple pleural fluid cultures MSSA Endocrine: Hyperglycemia of Critical Illness -- SSI Heme: Anemia Leukocytosis Monitor CBC, s/p transfusion 1unit PRBC 07/19 CBC today pending MSK: Stage I decubitus ulcer Wound care evaluate and treat and follow recommendations Prophylaxis: GI Prophylaxis Famotidine DVT Prophylaxis -- SCDs SQH Lines: Peripheral IV. Level 2 Patient is stable from critical care medicine standpoint. Assign care to hospitalist in a.m. 07/25. Transferred to [facility] Aydin Correia MD Jul 24, 2017 10:44
[2017-07-24 11:44] LABS: BASOPHIL # 0.1 TH/MM3 (0-0.2); BASOPHIL % 0.5 % (0.0-2.0); EOSINOPHIL # 0.1 TH/MM3 (0-0.4); EOSINOPHIL % 0.4 % (0.0-4.0); HEMO FLAGS DIFF FINAL; LYMPH % 7.2 % (9.0-44.0); LYMPHOCYTE # 1.2 TH/MM3 (1.0-4.8); MEAN CORPUSCULAR HGB CONC 32.6 % (32.0-36.0); MONO % 5.6 % (0.0-8.0); NEUT % 86.3 % (16.0-70.0); PLATELET COUNT 300 TH/MM3 (150-450); RED BLOOD COUNT 3.38 MIL/MM3 (4.00-5.30); RED CELL DISTRIBUTION WIDTH 19.2 % (11.6-17.2); WHITE BLOOD COUNT 16.3 TH/MM3 (4.0-11.0)
[2017-07-24 12:03] LABS: ALKALINE PHOSPHATASE 112 U/L (45-117); ALT (GPT) 10 U/L (10-53); ANION GAP 7 MEQ/L (5-15); AST (GOT) 21 U/L (15-37); BICARBONATE 22.2 MEQ/L (21.0-32.0); CHLORIDE 112 MEQ/L (98-107); GLOMERULAR FILTRATION RATE 127 ML/MIN (>89); MAGNESIUM 1.9 MG/DL (1.5-2.5); POTASSIUM 3.7 MEQ/L (3.5-5.1); SODIUM (NA) 141 MEQ/L (136-145); TOTAL BILIRUBIN ADULT 0.3 MG/DL (0.2-1.0)
[2017-07-24 12:07] LABS: BLOOD UREA NITROGEN 15 MG/DL (7-18)
[2017-07-24] MEDS: hydrALAZINE HCL 10 MG TAB PO SCH ×2 (14:12→20:34)
[2017-07-24] MEDS: NIFEdipine 20 MG CAP PO SCH ×2 (14:12→20:34)
[2017-07-24] MEDS: ISOSORBIDE DINITRATE 10 MG TAB PO SCH ×2 (14:12→20:34)
--- NOTE | 2017-07-24 14:18 | HHI.IDPN ---
Subjective Subjective Remarks Patient is a 66-year-old female, brought into the hospital for evaluation of respiratory distress. apparently noted increasing shortness of breath. EMS was called, and now she was in respiratory distress, and was intubated. In the ER she was hypotensive, and was given fluid resuscitation and pressors. Patient has remained on the vent. She is afebrile. Her initial WBC was 60, 000. Her creatinine was also elevated. Her chest x-ray showed bilateral infiltrates, and she eventually had placement of a chest tube on the right side yesterday. Fluid analysis is showing empyema. Patient's hemodynamics have improved, and she is off pressors. Her creatinine is also improving. Her WBC is also improving. A sputum culture was done and it has MSSA. Legionella and pneumococcal antigen are negative. Infectious disease consultation has been requested to evaluate the patient. Notes reviewed Temps ok Doing well post extubation All C/S with MSSA BP ok Not on pressors C/O pain R chest Linares removed yesterday, problems with retention Antibiotics Ancef Lines PIV Past Medical History Arthritis Anxiety Hypertension Bronchitis COPD Back pain Ulcers Past Surgical History Hysterectomy Back surgeries TENS unit removed from back Allergies: Coded Allergies: penicillin G (Unverified Allergy, Intermediate, Hives, 07/11/17) Sulfa (Sulfonamide Antibiotics) (Unverified Allergy, Unknown, 07/11/17) Objective . Vital Signs Date Time Temp Pulse Resp B/P (MAP) Pulse Ox O2 Delivery O2 Flow Rate FiO2 07/24/17 12:00 98.3 70 26 159/77 (104) 98 07/24/17 12:00 70 07/24/17 11:00 73 07/24/17 10:00 69 07/24/17 09:00 78 07/24/17 08:00 98.3 84 26 189/81 (117) 95 07/24/17 08:00 84 07/24/17 07:25 94 07/24/17 07:00 95 Nasal Cannula 2.00 07/24/17 07:00 73 07/24/17 06:00 70 07/24/17 04:00 97.7 81 20 186/78 (114) 97 07/24/17 04:00 81 07/24/17 02:00 82 07/24/17 00:00 88 07/24/17 00:00 97.7 88 20 159/98 (118) 98 07/23/17 22:00 91 07/23/17 20:00 96 Nasal Cannula 2.00 07/23/17 20:00 86 07/23/17 20:00 97.5 86 20 170/88 (115) 95 07/23/17 18:00 82 07/23/17 16:00 87 07/23/17 16:00 97.5 87 28 156/74 (101) 95 . Laboratory Tests Test 07/23/17 21:25 07/24/17 11:23 White Blood Count 15.7 TH/MM3 16.3 TH/MM3 Red Blood Count 3.84 MIL/MM3 3.38 MIL/MM3 Hemoglobin 10.3 GM/DL 9.1 GM/DL Hematocrit 32.1 % 28.0 % Mean Corpuscular Volume 83.5 FL 83.0 FL Mean Corpuscular Hemoglobin 26.9 PG 27.0 PG Mean Corpuscular Hemoglobin Concent 32.2 % 32.6 % Red Cell Distribution Width 19.6 % 19.2 % Platelet Count 320 TH/MM3 300 TH/MM3 Mean Platelet Volume 8.5 FL 7.9 FL Neutrophils (%) (Auto) 86.3 % Lymphocytes (%) (Auto) 7.2 % Monocytes (%) (Auto) 5.6 % Eosinophils (%) (Auto) 0.4 % Basophils (%) (Auto) 0.5 % Neutrophils # (Auto) 14.0 TH/MM3 Lymphocytes # (Auto) 1.2 TH/MM3 Monocytes # (Auto) 0.9 TH/MM3 Eosinophils # (Auto) 0.1 TH/MM3 Basophils # (Auto) 0.1 TH/MM3 CBC Comment DIFF FINAL Differential Comment Hematology Comments Laboratory Tests Test 07/24/17 11:23 Blood Urea Nitrogen 15 MG/DL Creatinine 0.49 MG/DL Random Glucose 80 MG/DL Total Protein 5.4 GM/DL Albumin 1.7 GM/DL Calcium Level 7.6 MG/DL Phosphorus Level 2.6 MG/DL Magnesium Level 1.9 MG/DL Alkaline Phosphatase 112 U/L Aspartate Amino Transf (AST/SGOT) 21 U/L Alanine Aminotransferase (ALT/SGPT) 10 U/L Total Bilirubin 0.3 MG/DL Sodium Level 141 MEQ/L Potassium Level 3.7 MEQ/L Chloride Level 112 MEQ/L Carbon Dioxide Level 22.2 MEQ/L Anion Gap 7 MEQ/L Estimat Glomerular Filtration Rate 127 ML/MIN Microbiology Date/Time Source Procedure Growth Status 07/23/17 14:45 Urine Catheterized Urine Urine Culture Pending Received Imaging Chest X-Ray 07/22/17 0000 Signed Impressions: Service Date/Time: Saturday, July 22, 2017 02:51 - CONCLUSION: Unchanged exam. No pneumothorax. Bilateral parenchymal opacities. Cassius Tijerina Jr., MD Chest X-Ray 07/18/17 0000 Signed Impressions: Service Date/Time: Tuesday, July 18, 2017 07:43 - CONCLUSION: 1. Persistent prominent areas of consolidation in the right upper lobe, left lower lung, and to lesser degree right lower lung. The right upper lobe consolidation appears cavitary. 2. New right-sided chest tube. A pneumothorax is not seen. 3. ET tube, NG tube and left subclavian line are well placed. Moustapha Faulkner MD Chest X-Ray 07/16/17 0600 Signed Impressions: Service Date/Time: July 04:31 - CONCLUSION: 1. Bilateral patchy airspace disease with some improved aeration in the bases. 2. Persistent bilateral pleural effusions, right greater than left. Right-sided thoracostomy tube laterally in the lower chest is unchanged. Remaining support tubes are also stable in position. Ken Teran MD Chest CT 07/15/17 0000 Signed Impressions: Service Date/Time: Saturday, July 15, 2017 11:25 - CONCLUSION: 1. There are extensive pleural and parenchymal changes. There are densely consolidated areas cavitation involving the right upper lobe and posterior aspect of the left lower lobe concerning for cavitary areas of pneumonia. 2. There are bilateral pleural effusions. The effusion effusions are small in size. There is considerable consolidated lung in the lung bases bilaterally. 3. Old, healed posterior rib fractures on the left. 4. Small pericardial effusion. Kendall Corona MD Physical Exam GENERAL: awake, not in distress, looks weak SKIN: Cool and dry. Has hypopigmented macules in her UE and LE EYES: [place] conjunctiva. No petechia or hemorrhage. Pupils equal, round and reactive to light. No scleral icterus. No injection or drainage. EARS, NOSE AND THROAT: Nose without bleeding or purulent nasal discharge. NECK: Trachea midline. Supple and not tender, no meningeal signs CARDIOVASCULAR: Distant heart sounds. Regular rate and rhythm. RESPIRATORY: Coarse breath sounds bilaterally ABDOMEN: Soft, nondistended, but no guarding appreciated. Bowel sounds present and normoactive. No organomegaly. EXTREMITIES: No clubbing. Has mottling in both feet and hands, cold. Mild pedal edema. NEUROLOGICAL: Awake PSYCHIATRIC: cooperative LINE: no evidence of infection : Linares in place, urine looks clear Assessment & Plan Remarks IMPRESSION Sepsis with shock on presentation due to CAP - hemodynamics better, off pressors Community acquired PNA, wih abscess and with empyema - sputum C/S MSSA - fluid C/S with Staph aureus - S/P mini-thoracotomy Leukocytosis, up again Renal insufficiency due to sepsis, and hypotension, improving Respiratory failure, tolerating extubation Hx COPD, smoker RECOMMENDATION Continue Ancef Add Diflucan Follow CBC Monitor progress Holly Luna MD Jul 24, 2017 14:18
[2017-07-24] MEDS: FLUCONAZOLE 100 MG TAB PO SCH (18:19)
[2017-07-24] MEDS: FAMOTIDINE 20 MG TAB PO SCH (20:34)
[2017-07-25] VITALS (19 sets, daily range): BP systolic 117–182; BP diastolic 70–113; PULSE 61–105; RESP 18–35; TEMP 97.5–98.5; O2SAT 93–100
[2017-07-25] MEDS: ceFAZolin 2 GM PREMIX 50 ML IV SCH ×3 (02:10→17:45)
[2017-07-25] MEDS: hydrALAZINE HCL 20 MG/ML VIAL IV PUSH PRN (02:13)
[2017-07-25] MEDS: RESP: ALBUTEROL 2.5 MG/IPRATROPIUM 0.5 MG NEB (SCH) NEB ×4 (03:10→21:44)
[2017-07-25] MEDS: CHLORHEXIDINE GLUCONATE 2 % 1 PACK (2 CLOTHS) TOP SCH ×2 (04:00→19:27)
[2017-07-25] MEDS: hydrALAZINE HCL 10 MG TAB PO SCH ×3 (04:28→21:40)
[2017-07-25] MEDS: LABETALOL HCL 100 MG/20 ML VIAL IV PRN (04:28)
[2017-07-25] MEDS: NIFEdipine 20 MG CAP PO SCH ×3 (04:28→21:40)
[2017-07-25] MEDS: ISOSORBIDE DINITRATE 10 MG TAB PO SCH ×3 (04:29→21:40)
[2017-07-25] MEDS: HYDROmorphone HCL PF 1 MG/ML VIAL IV PUSH PRN ×2 (04:30→18:34)
[2017-07-25] MEDS: CHLORHEXIDINE 0.12% (ORAL KIT) 15 ML CUP MT SCH ×2 (08:00→19:27)
[2017-07-25] MEDS: INSULIN NovoLIN REGULAR SUPPLEMENTAL SCALE SQ SCH ×4 (08:00→21:00)
[2017-07-25 08:35] LABS: HEMATOCRIT 32.8 % (35.0-46.0); MEAN CELL VOLUME 83.4 FL (80.0-100.0); MEAN CORPUSCULAR HEMOGLOBIN 26.9 PG (27.0-34.0); MEAN CORPUSCULAR HGB CONC 32.2 % (32.0-36.0); PLATELET COUNT 354 TH/MM3 (150-450); RED BLOOD COUNT 3.93 MIL/MM3 (4.00-5.30); RED CELL DISTRIBUTION WIDTH 19.6 % (11.6-17.2); REVIEW FLAG FINAL; WHITE BLOOD COUNT 12.7 TH/MM3 (4.0-11.0)
[2017-07-25 08:48] LABS: BICARBONATE 22.3 MEQ/L (21.0-32.0); POTASSIUM 3.9 MEQ/L (3.5-5.1)
[2017-07-25] MEDS: SODIUM CHLORIDE 0.9% FLUSH 10 ML FLUSH IV FLUSH SCH ×2 (09:08→21:39)
[2017-07-25] MEDS: DOCUSATE SODIUM 50 MG/SENNA 8.6 MG TAB PO SCH ×2 (09:08→21:00)
[2017-07-25] MEDS: predniSONE 20 MG TAB PO SCH (09:08)
[2017-07-25] MEDS: FAMOTIDINE 20 MG TAB PO SCH ×2 (09:08→21:39)
[2017-07-25] MEDS: METOPROLOL TARTRATE 25 MG TAB PO SCH ×2 (09:08→21:40)
--- NOTE | 2017-07-25 09:46 | HHI.PR ---
Subjective Remarks 66-year-old female with history of COPD, hypertension, presents to the ER tbrought in by EMS after called stating that his was having respiratory issues. She was found in respiratory distress, GCS 6, and was intubated by EMS for airway protection. They state that she initially sounded like she had rales bilaterally. She is not able to give me any further history. They found that her blood pressure was 70 systolic and started her on IV fluids and Levophed. 07/12: still on vasopressors. weaning fio2. remains in shock. mental status still poor, although now purposeful. renal function slowly improving, although remains severely oliguric. 07/13: clinically starting to improve. off vasopressors. fio2 improving. cultures still no growth to date. renal function also improving. 07/14: Remains intubated sedated, encephalopathic. Failed SBT due to tachypnea. UO 2.3 L in 24 hours. On sedation hold do not follow commands. Get CT chest to evaluate loculated effusion 07/15: R pigtail chest tube placed yesterday and 07/14/17. Fluid had appearance of early empyema (yellow cloudy). Pleural fluid studies shows WBC count of 32, 227 with 93% neutrophils. Fluid LDH is 2587 (serum LDH 143) fluid glucose is 44 (serum 158). CTS and ID consulted 07/16: Remains intubated sedated, on sedation hold patient becomes tachypneic. CTS consulted for right empyema. Patient is scheduled for right video-assisted thoracoscopy, with possible thoracotomy by Dr. Carpio 07/17/17. ID also following. CT chest from yesterday shows right upper lobe lobe and left lower lobe cavitating pneumonia, bilateral small effusions. Remains critically ill but stabilizing 07/17 Patient is sedated and intubated. Afebrile. For right VATS/thoracotomy and pleurodesis today. 07/18 Patient s/p mini thoracotomy, right VATS, decortication yesterday. Remains sedated with Diprivan. Fentanyl and intubated. Afebrile. 07/19 No events overnight. Patient did not tolerate CPAP trials yesterday as she became tachypneic, tachycardic and hypertensive. Sedated with Diprivan and Fentanyl drips. 07/20 Patient remains sedated with Diprivan, fentanyl and intubated. Afebrile. 07/21 No events overnight. Sedated and intubated. Tolerated CPAP for several hrs yesterday. Afebrile. 07/22: Extubated yesterday tolerating well. Failed swallow eval yesterday repeat today. CT surgery planning on chest tube removal today. BP elevated, getting when necessary labetalol and hydralazine IV 07/23: Resting comfortably in no acute distress. On room air. Tolerating nectar thickened diet. Linares placement removed today. Restarting Procardia today 07/24: Receiving as needed labetalol for hypertension. Urinary retention noted. On room air. Complaining of pain in right upper extremity. 07/25 PATIENT TRANSFERRED TO OUR SERVICE TODAY DW RN AND PT STATES "[place]" VERY CONFUSED Objective Vitals Vital Signs Date Time Temp Pulse Resp B/P (MAP) Pulse Ox O2 Delivery O2 Flow Rate FiO2 07/25/17 09:16 100 Nasal Cannula 3.00 07/25/17 07:00 Nasal Cannula 2.00 35 07/25/17 06:00 105 07/25/17 04:00 98.5 83 35 154/113 (127) 93 07/25/17 04:00 83 07/25/17 02:00 65 07/25/17 00:00 97.6 70 27 141/90 (107) 95 07/25/17 00:00 70 07/24/17 22:07 99 Nasal Cannula 2.00 07/24/17 22:00 77 07/24/17 20:00 98.6 72 24 177/84 (115) 97 07/24/17 20:00 72 07/24/17 19:00 Nasal Cannula 2.00 35 07/24/17 18:00 78 07/24/17 17:00 74 07/24/17 16:00 75 07/24/17 16:00 98.3 75 26 157/79 (105) 99 07/24/17 15:00 79 07/24/17 14:00 78 07/24/17 13:00 73 07/24/17 12:00 98.3 70 26 159/77 (104) 98 07/24/17 12:00 70 07/24/17 11:00 73 07/24/17 10:00 69 I/O 9/22/17 907/24/17 07/25/17 07/25/17 07/25/17 07:00 15:00 23:00 07:00 15:00 23:00 Intake Total 290 ml 50 ml 500 ml 200 ml Output Total 900 ml Balance -610 ml 50 ml 500 ml 200 ml Intake Oral 240 ml 500 ml 200 ml IV Total 50 ml 50 ml Output Urine Total 900 ml # Voids 3 6 # Bowel Movements 1 2 Result Diagram: 07/25/17 0807 07/25/17 0807 Other Results Laboratory Tests Test 07/22/17 10:25 07/23/17 14:45 07/23/17 21:25 07/24/17 11:23 White Blood Count 15.9 TH/MM3 15.7 TH/MM3 16.3 TH/MM3 Red Blood Count 3.61 MIL/MM3 3.84 MIL/MM3 3.38 MIL/MM3 Hemoglobin 9.4 GM/DL 10.3 GM/DL 9.1 GM/DL Hematocrit 29.8 % 32.1 % 28.0 % Mean Corpuscular Volume 82.5 FL 83.5 FL 83.0 FL Mean Corpuscular Hemoglobin 26.1 PG 26.9 PG 27.0 PG Mean Corpuscular Hemoglobin Concent 31.6 % 32.2 % 32.6 % Red Cell Distribution Width 19.3 % 19.6 % 19.2 % Platelet Count 389 TH/MM3 320 TH/MM3 300 TH/MM3 Mean Platelet Volume 7.6 FL 8.5 FL 7.9 FL CBC Comment AUTO DIFF DIFF FINAL Differential Total Cells Counted 100 Neutrophils % (Manual) 79 % Band Neutrophils % 8 % Lymphocytes % 13 % Neutrophils # (Manual) 13.8 TH/MM3 Differential Comment FINAL DIFF MANUAL Platelet Estimate NORMAL Platelet Morphology Comment NORMAL Hematology Comments Urine Color YELLOW Urine Turbidity CLEAR Urine pH 6.5 Urine Specific [place] 1.015 Urine Protein 30 mg/dL Urine Glucose (UA) NEG mg/dL Urine Ketones NEG mg/dL Urine Occult Blood NEG Urine Nitrite NEG Urine Bilirubin NEG Urine Urobilinogen LESS THAN 2.0 MG/DL Urine Leukocyte Esterase LARGE Urine RBC 3 /hpf Urine WBC 39 /hpf Urine Squamous Epithelial Cells <1 /hpf Urine Bacteria FEW /hpf Urine Yeast with Hyphae MANY Urine Yeast (Budding) MANY Microscopic Urinalysis Comment CATH-CULTURE IND Neutrophils (%) (Auto) 86.3 % Lymphocytes (%) (Auto) 7.2 % Monocytes (%) (Auto) 5.6 % Eosinophils (%) (Auto) 0.4 % Basophils (%) (Auto) 0.5 % Neutrophils # (Auto) 14.0 TH/MM3 Lymphocytes # (Auto) 1.2 TH/MM3 Monocytes # (Auto) 0.9 TH/MM3 Eosinophils # (Auto) 0.1 TH/MM3 Basophils # (Auto) 0.1 TH/MM3 Blood Urea Nitrogen 15 MG/DL Creatinine 0.49 MG/DL Random Glucose 80 MG/DL Total Protein 5.4 GM/DL Albumin 1.7 GM/DL Calcium Level 7.6 MG/DL Phosphorus Level 2.6 MG/DL Magnesium Level 1.9 MG/DL Alkaline Phosphatase 112 U/L Aspartate Amino Transf (AST/SGOT) 21 U/L Alanine Aminotransferase (ALT/SGPT) 10 U/L Total Bilirubin 0.3 MG/DL Sodium Level 141 MEQ/L Potassium Level 3.7 MEQ/L Chloride Level 112 MEQ/L Carbon Dioxide Level 22.2 MEQ/L Anion Gap 7 MEQ/L Estimat Glomerular Filtration Rate 127 ML/MIN Test 07/25/17 08:07 White Blood Count 12.7 TH/MM3 Red Blood Count 3.93 MIL/MM3 Hemoglobin 10.6 GM/DL Hematocrit 32.8 % Mean Corpuscular Volume 83.4 FL Mean Corpuscular Hemoglobin 26.9 PG Mean Corpuscular Hemoglobin Concent 32.2 % Red Cell Distribution Width 19.6 % Platelet Count 354 TH/MM3 Mean Platelet Volume 7.8 FL Blood Urea Nitrogen 12 MG/DL Creatinine 0.44 MG/DL Random Glucose 72 MG/DL Calcium Level 8.0 MG/DL Sodium Level 144 MEQ/L Potassium Level 3.9 MEQ/L Chloride Level 113 MEQ/L Carbon Dioxide Level 22.3 MEQ/L Anion Gap 9 MEQ/L Estimat Glomerular Filtration Rate 144 ML/MIN Imaging Last Impressions Chest X-Ray 07/24/17 0600 Signed Impressions: Service Date/Time: Monday, July 24, 2017 04:44 - CONCLUSION: 1. Removal of right chest tube without pneumothorax. Exam otherwise stable. Chas Sanches MD Chest CT 07/15/17 0000 Signed Impressions: Service Date/Time: Saturday, July 15, 2017 11:25 - CONCLUSION: 1. There are extensive pleural and parenchymal changes. There are densely consolidated areas cavitation involving the right upper lobe and posterior aspect of the left lower lobe concerning for cavitary areas of pneumonia. 2. There are bilateral pleural effusions. The effusion effusions are small in size. There is considerable consolidated lung in the lung bases bilaterally. 3. Old, healed posterior rib fractures on the left. 4. Small pericardial effusion. Kendall Corona MD Objective Remarks GENERAL: 66-year-old female resting in bed in no acute distress SKIN: Warm and dry. Stage I decubitus ulcer HEAD: Atraumatic. Normocephalic. EYES: Pupils equal and round. No scleral icterus. No injection or drainage. EOMI ENT: No nasal bleeding or discharge. Mucous membranes pink and moist. TONGUE MIDLINE NECK: Trachea midline. No JVD. SUPPLE CARDIOVASCULAR: Regular rate and rhythm. S1, S2 no S3 OR S4. RESPIRATORY: Coarse rhonchorous breath sounds appreciated bilaterally. No wheezing GASTROINTESTINAL: Abdomen soft, non-tender, nondistended. Hepatic and splenic margins not palpable. MUSCULOSKELETAL: Extremities with trace bilateral lower extremity edema. 1+ left upper extremity edema.. NEUROLOGICAL: Awake and alert. No obvious cranial nerve deficits. Motor grossly within normal limits. 4 out of 5 muscle strength in the arms and legs. Normal speech. PSYCHIATRIC: INAppropriate mood and affect; insight and judgment ABnormal. Procedures - s/p right VATS, mini thoracotomy, decortication 07/17 for organizing empyema. cc: Viraj Carpio MD Operative Report Date of Surgery: Jul 17, 2017 Preoperative Diagnosis: Postoperative Diagnosis: Procedure: 1. Right Video Assisted Thoracoscopic Surgery (VATS) 2. Right Posterolateral Muscle Sparing Mini-Thoracotomy 3. Decortication 4. Intercostal Nerve Block Surgeon: Viraj Carpio Retaining Room Cutter(s): Danny Sargent Operation and Findings: PREOPERATIVE DIAGNOSIS 1. Right Organized Empyema 2. Loculated Abscess Cavities 3. Pneumonia 4. Respiratory Failure POSTOPERATIVE DIAGNOSIS same PROCEDURES 1. Right Video Assisted Thoracoscopic Surgery (VATS) 2. Right Posterolateral Muscle Sparing Mini-Thoracotomy 3. Decortication 4. Intercostal Nerve Block SURGEON Viraj Carpio MD Medications and IVs Current Medications Sodium Chloride 1,000 ml @ 1,000 mls/hr Q1H ONCE IV Last administered on 07:05; Start 07/11/17 at 06:45; Stop 07/11/17 at 07:44; Status DC Cefepime HCl 2000 mg/Sodium Chloride 100 ml @ 200 mls/hr ONCE STAT IV ; Start 07/11/17 at 07:17; Stop 07/11/17 at 07:32; Status DC Azithromycin 500 mg/Sodium Chloride 250 ml @ 250 mls/hr ONCE STAT IV ; Start 07/11/17 at 07:17; Stop 07/11/17 at 07:32; Status DC Vancomycin HCl 1000 mg/Sodium Chloride 250 ml @ 250 mls/hr ONCE ONCE IV Last administered on 07/11/17 07:47; Start 07/11/17 at 07:30; Stop 07/11/17 at 08:29; Status DC Levofloxacin/ Dextrose 100 ml @ 100 mls/hr ONCE ONCE IV Last administered on 07/11/17 07:48; Start 07/11/17 at 07:30; Stop 07/11/17 at 08:29; Status DC Piperacillin Sod/ Tazobactam Sod 50 ml @ 100 mls/hr ONCE ONCE IV Last administered on 07/11/17 08:12; Start 07/11/17 at 07:30; Stop 07/11/17 at 07:59; Status DC Sodium Chloride 1,000 ml @ 999 mls/hr BOLUS ONCE IV Last administered on 07:41; Start 07/11/17 at 07:30; Stop 07/11/17 at 08:30; Status DC Propofol 100 ml @ 0 mls/hr TITRATE IV Last administered on 07/21/17 09:34; Start 07/11/17 at 09:00; Stop 07/21/17 at 14:52; Status DC Fentanyl Citrate 250 ml @ 0 mls/hr TITRATE IV Last administered on 07/20/17 13 :23; Start 07/11/17 at 09:00; Stop 07/21/17 at 14:52; Status DC Chlorhexidine Gluconate (Peridex 0.12% Liq) 15 ml BID@08,20 MT Last administered on 07/21/17 09:33; Start 07/11/17 at 20:00 Dextrose (D50w (Vial) Inj) 25 ml UNSCH PRN IV PUSH HYPOGLYCEMIA-SEE COMMENTS; Start 07/11/17 at 09:00 Insulin Human Regular (NovoLIN R SUPPLEMENTAL SCALE) 1 Q6HR SQ Last administered on 07/15/17 12:00; Start 07/11/17 at 12:00; Stop 07/24/17 at 10:12 ; Status DC Albuterol/ Ipratropium (Duoneb Neb) 1 ampule Q6HR NEB INH Last administered on 07/14/17 08:31; Start 07/11/17 at 10:00; Stop 07/14/17 at 16:42; Status DC Albuterol/ Ipratropium (Duoneb Neb) 1 ampule Q2HR NEB PRN INH WHEEZING Last administered on 07/19/17 20:50; Start 07/11/17 at 09:00; Stop 07/23/17 at 14:39 ; Status DC Sodium Chloride 1,000 ml @ 120 mls/hr Q8H20M IV Last administered on 08:31; Start 07/11/17 at 08:48; Stop 07/13/17 at 11:30; Status DC Famotidine (Pepcid Inj) 10 mg Q12HR IV PUSH Last administered on 07/17/17 07: 35; Start 07/11/17 at 10:00; Stop 07/17/17 at 14:53; Status DC Ondansetron HCl (Zofran Inj) 4 mg Q6H PRN IV PUSH NAUSEA OR VOMITING Last administered on 07/23/17 05:52; Start 07/11/17 at 09:00 Miscellaneous Information 1 Q361D XX ; Start 07/11/17 at 09:00 Chlorhexidine Gluconate (Chlorhexidine 2% Cloth) Taper DAILY@04 TOP Last administered on 07/18/17 03:19; Start 07/12/17 at 04:00; Stop 07/08/18 at 03:59 Chlorhexidine Gluconate (Chlorhexidine 2% Cloth) 3 pack UNSCH PRN TOP HYGIENIC CARE; Start 07/11/17 at 09:00 Senna/Docusate Sodium (Pallavi-Colace) 1 tab BID PO Last administered on 09:08; Start 07/11/17 at 10:00 Piperacillin Sod/ Tazobactam Sod 50 ml @ 100 mls/hr Q8H IV Last administered on 07/15/17 00:35; Start 07/11/17 at 17:00; Stop 07/15/17 at 07:21; Status DC Levofloxacin/ Dextrose 150 ml @ 100 mls/hr Q48H IV Last administered on 09:21; Start 07/13/17 at 09:00; Stop 07/20/17 at 09:17; Status DC Pharmacy Profile Note 0 ml @ 0 mls/hr UNSCH OTHER ; Start 07/11/17 at 09:00; Stop 07/15/17 at 07:21; Status DC Etomidate (Amidate Inj) 20 mg ONCE ONCE IV PUSH Last administered on 07/11/17 09:33; Start 07/11/17 at 09:30; Stop 07/11/17 at 09:31; Status DC Etomidate (Amidate Inj) 20 mg STK-MED ONCE .ROUTE ; Start 07/11/17 at 09:28; Stop 07/11/17 at 09:29; Status DC Norepinephrine Bitartrate 250 ml @ 7.5 mls/hr TITRATE PRN IV Maintain MAP > 65 mmHg Last administered on 07/12/17 15:01; Start 07/11/17 at 19:30; Stop 07/13 at 11:30; Status DC Methylprednisolone Sodium Succinate (SoluMEDROL INJ) 60 mg Q12HR IV PUSH Last administered on 07/17/17 07:35; Start 07/11/17 at 21:00; Stop 07/17/17 at 08:34 ; Status DC Heparin Sodium (Porcine) (Heparin Inj) 5,000 units Q8HR SQ Last administered on 07/15/17 06:15; Start 07/11/17 at 22:00; Status Future Hold Sodium Chloride 1,000 ml @ 999 mls/hr Q1H IV Last administered on 07/12/17 03 :19; Start 07/12/17 at 02:15; Stop 07/12/17 at 04:14; Status DC Vancomycin HCl 1000 mg/Sodium Chloride 250 ml @ 250 mls/hr ONCE ONCE IV Last administered on 07/12/17 09:27; Start 07/12/17 at 09:00; Stop 07/12/17 at 09:59 ; Status DC Vancomycin HCl 1000 mg/Sodium Chloride 250 ml @ 250 mls/hr ONCE ONCE IV Last administered on 07/13/17t 11:35; Start 07/13/17 at 10:00; Stop 07/13/17 at 10:59 ; Status DC Furosemide (Lasix Inj) 60 mg ONCE ONCE IV PUSH Last administered on 07/13/17t 14:20; Start 07/13/17 at 11:30; Stop 07/13/17 at 12:52; Status DC Magnesium Oxide (Mag-Ox) 800 mg UNSCH PRN PO For Magnesium 1.2 - 1.6 mg/dL; Start 07/13/17 at 11:30 Magnesium Sulfate 4 gm/Sodium Chloride 100 ml @ 50 mls/hr UNSCH PRN IV For Magnesium 0.9 - 1.1 mg/dL; Start 07/13/17 at 11:30 Magnesium Sulfate 2 gm/Sodium Chloride 100 ml @ 50 mls/hr UNSCH PRN IV For Magnesium 1.2 - 1.6 mg/dL; Start 07/13/17 at 11:30 Potassium Chloride 100 ml @ 50 mls/hr Q2H PRN IV For Potassium 2.8 - 3.2 mEq/L ; Start 07/13/17 at 11:30 Potassium Chloride 100 ml @ 50 mls/hr Q2H PRN IV For Potassium 3.3 - 3.5 mEq/L ; Start 07/13/17 at 11:30 Potassium Chloride 100 ml @ 50 mls/hr Q2H PRN IV For Potassium 2.8 - 3.2 mEq/L ; Start 07/13/17 at 11:30 Potassium Chloride 100 ml @ 25 mls/hr UNSCH PRN IV For Potassium 3.3 - 3.5 mEq /L; Start 07/13/17 at 11:30 Potassium Phosphate (K-Phos) 2,000 mg Q4H PRN PO For Phosphorus < 2.5 mg/dL; Start 07/13/17 at 11:30 Potassium Phosphate (K-Phos) 2,000 mg UNSCH PRN PO/TUBE SEE LABEL COMMENTS; Start 07/13/17 at 11:30 Potassium Phosphate 30 mmol/ Sodium Chloride 260 ml @ 42 mls/hr UNSCH PRN IV SEE LABEL COMMENTS; Start 07/13/17 at 11:30 Sodium Phosphate 30 mmol/Sodium Chloride 250 ml @ 42 mls/hr UNSCH PRN IV For Phosphorus < 2.5 mg/dL; Start 07/13/17 at 11:30 Vancomycin HCl 1000 mg/Sodium Chloride 250 ml @ 250 mls/hr Q24H IV Last administered on 07/14/17 11:29; Start 07/14/17 at 12:00; Stop 07/15/17 at 07:21 ; Status DC Miscellaneous Information SPECIFIC LAB TO BE DRAWN:VANCO TROUGH DATE TO... ONCE ONCE .XX ; Start 07/15/17 at 11:45; Stop 07/15/17 at 11:46; Status DC Albuterol/ Ipratropium (Duoneb Neb) 1 ampule Q6HR NEB INH Last administered on 07/18/17 14:37; Start 07/14/17 at 22:00; Stop 07/18/17 at 21:59; Status DC Ceftriaxone Sodium 2000 mg/ Sodium Chloride 100 ml @ 200 mls/hr Q24H IV Last administered on 07/17/17 07:35; Start 07/15/17 at 08:00; Stop 07/17/17 at 16:45 ; Status DC Sodium Chloride (NS Flush) 2 ml BID IV FLUSH Last administered on 07/25/17 09: 08; Start 07/16/17 at 09:00 Sodium Chloride (NS Flush) 2 ml UNSCH PRN IV FLUSH FLUSH AFTER USING IV ACCESS Last administered on 07/15/17 20:02; Start 07/15/17 at 13:30 Vancomycin HCl 1000 mg/Sodium Chloride 1,000 ml @ 0 mls/hr BED MANAGER IRRIGATION Last administered on 07/17/17 11:34; Start 07/15/17 at 13:30; Stop 07/22/17 at 13:29; Status DC Vancomycin HCl 1250 mg/Sodium Chloride 262.5 ml @ 262.5 mls/ hr BED MANAGER IV Last administered on 07/17/17 10:10; Start 07/15/17 at 13:30; Stop 07/22/17 at 13:29; Status DC Chlorhexidine Gluconate (Hibiclens 4% Top Soln) 1 applic BED MANAGER TOPICAL ; Start 07/15/17 at 13:30; Stop 07/22/17 at 13:29; Status DC Metoprolol Tartrate (Lopressor Inj) 5 mg STK-MED ONCE .ROUTE ; Start 07/16/17 at 13:00; Stop 07/16/17 at 13:01; Status DC Diltiazem HCl (Cardizem Inj) 15 mg ONCE ONCE IV PUSH Last administered on 07/16 13:26; Start 07/16/17 at 14:00; Stop 07/16/17 at 14:01; Status DC Diltiazem HCl 125 mg/Sodium Chloride 125 ml @ 5 mls/hr TITRATE PRN IV Tachycardia Last administered on 07/16/17 13:27; Start 07/16/17 at 14:00; Stop 07/17/17 at 08:34; Status DC Metoprolol Tartrate (Lopressor Inj) 5 mg ONCE ONCE IV PUSH Last administered on 07/16/17 13:26; Start 07/16/17 at 14:00; Stop 07/16/17 at 14:01; Status DC Potassium Chloride (KCl) 30 meq ONCE ONCE PO Last administered on 07/16/17 13 :25; Start 07/16/17 at 13:15; Stop 07/16/17 at 13:16; Status DC Magnesium Sulfate/ Dextrose 100 ml @ 100 mls/hr ONCE ONCE IV Last administered on 07/16/17 13:26; Start 07/16/17 at 14:00; Stop 07/16/17 at 14:59 ; Status DC Methylprednisolone Sodium Succinate (SoluMEDROL INJ) 30 mg Q12HR IV PUSH Last administered on 07/22/17 09:03; Start 07/17/17 at 21:00; Stop 07/22/17 at 10:46 ; Status DC Heparin Sodium (Porcine) (Heparin Inj) 30,000 units STK-MED ONCE .ROUTE ; Start 07/17/17 at 09:30; Stop 07/17/17 at 09:31; Status DC Bupivacaine Liposome 20 ml/ Dexamethasone Sodium Phosphate 4 mg/Morphine Sulfate 8 mg/ Sodium Chloride 41.8 ml @ 0 mls/hr ONCE ONCE IRRIGATION ; Start 07/17/17 at 09:45; Stop 07/17/17 at 09:46; Status DC Miscellaneous Information (Post-op Orders (for Pharmacy)) STAT ONCE OTHER Last administered on 07/17/17 12:30; Start 07/17/17 at 12:30; Stop 07/17/17 at 13:20; Status DC Vancomycin HCl 1 gm/Sodium Chloride 250 ml @ 250 mls/hr Q12H IV Last administered on 07/18/17 09:14; Start 07/17/17 at 22:00; Stop 07/18/17 at 10:59 ; Status DC Acetaminophen 100 ml @ 400 mls/hr Q6H IV Last administered on 07/18/17 05:14 ; Start 07/17/17 at 12:30; Stop 07/18/17 at 06:44; Status DC Ketorolac Tromethamine (Toradol Inj) 15 mg Q6H IV PUSH Last administered on 09:13; Start 07/17/17 at 13:00; Stop 07/18/17 at 07:01; Status DC Famotidine (Pepcid Inj) 20 mg Q12HR IV PUSH Last administered on 07/24/17 08: 45; Start 07/17/17 at 21:00; Stop 07/24/17 at 10:12; Status DC Cefazolin Sodium/ Dextrose 50 ml @ 100 mls/hr Q8H IV Last administered on 07/25 09:08; Start 07/17/17 at 18:00 Hydromorphone HCl (Dilaudid Pf Inj) 0.5 mg Q4H PRN IV PUSH PAIN Last administered on 07/25/17 04:30; Start 07/18/17 at 15:45 Bumetanide (Bumex Inj) 1 mg ONCE ONCE IV PUSH Last administered on 07/19/17 11:02; Start 07/19/17 at 10:00; Stop 07/19/17 at 10:01; Status DC Albuterol/ Ipratropium (Duoneb Neb) 1 ampule Q4HR NEB NEB Last administered on 07/23/17 11:16; Start 07/19/17 at 12:00; Stop 07/23/17 at 11:59; Status DC Metoprolol Tartrate (Lopressor) 25 mg Q12HR PO Last administered on 07/25/17 09:08; Start 07/21/17 at 13:15 Hydralazine HCl (Apresoline Inj) 10 mg Q6H PRN IV PUSH SYS BP GREATER THAN 160 MMHG Last administered on 07/23/17 12:54; Start 07/21/17 at 13:15; Stop at 10:15; Status DC Labetalol HCl (Trandate Inj) 20 mg Q4H PRN IV SBP > 170 Last administered on 04:28; Start 07/22/17 at 02:30 Methylprednisolone Sodium Succinate (SoluMEDROL INJ) 20 mg Q12HR IV PUSH Last administered on 07/24/17 08:44; Start 07/22/17 at 21:00; Stop 07/24/17 at 10:12 ; Status DC Hydromorphone HCl (Dilaudid Pf Inj) 0.5 mg ONCE ONCE IV PUSH Last administered on 07/22/17 23:03; Start 07/22/17 at 23:00; Stop 07/22/17 at 23:01 ; Status DC Albuterol/ Ipratropium (Duoneb Neb) 1 ampule Q6HR NEB NEB Last administered on 07/25/17 09:16; Start 07/23/17 at 16:00 Albuterol Sulfate (Albuterol Neb) 2.5 mg Q2HR NEB PRN NEB DYSPNEA; Start at 14:30 Nifedipine (Procardia) 10 mg Q8HR PO Last administered on 07/24/17 06:44; Start 07/23/17 at 22:00; Stop 07/24/17 at 10:15; Status DC Insulin Human Regular (NovoLIN R SUPPLEMENTAL SCALE) 1 ACHS SQ ; Start 07/24/17 at 12:00 Famotidine (Pepcid) 20 mg BID PO Last administered on 07/25/17 09:08; Start at 21:00 Prednisone (Deltasone) 20 mg DAILY PO Last administered on 07/25/17 09:08; Start 07/25/17 at 09:00 Hydralazine HCl (Apresoline Inj) 10 mg Q2HR PRN IV PUSH SYS BP GREATER THAN 170 MMHG Last administered on 07/25/17 02:13; Start 07/24/17 at 10:15 Nifedipine (Procardia) 20 mg Q8HR PO Last administered on 07/25/17 04:28; Start 9/22/17 at 14:00 Hydralazine HCl (Apresoline) 10 mg Q8HR PO Last administered on 07/25/17 04:28 ; Start 07/24/17 at 14:00 Isosorbide Dinitrate (Isordil) 10 mg Q8HR PO Last administered on 07/25/17 04: 29; Start 07/24/17 at 14:00 Nitroglycerin (Nitroglycerin 2% Oint) 2 inch Q6HR PRN TOPICAL SBP>170, DBP>90; Start 07/24/17 at 10:15 Fluconazole (Diflucan) 100 mg Q24H PO Last administered on 07/24/17 18:19; Start 07/24/17 at 15:00; Stop 07/31/17 at 14:59 A/P Problem List: (1) Empyema ICD Code: J86.9 - Pyothorax without fistula (2) S/P Right Thoracotomy with Decortication Assessment and Plan Assessment and Plan Neuro/Psych: Metabolic encephalopathy - resolved - Dilaudid when necessary for pain - Neuro checks per ICU protocol Respiratory: Right sided empyema/eczematous secondary to staph aureus Severe bilateral community-acquired pneumonia, with cavitation Acute hypoxic respiratory failure-resolved COPD exacerbation - s/p right VATS, mini thoracotomy, decortication 07/17 for organizing empyema. Chest tube discontinued 07/22 - CT chest initially revealed cavitating pneumonia involving right upper lobe and left lower lobe - Extubated 07/21/17 at 1500 and tolerating well - CXR: Repeat 07/22 every morning -Continue albuterol/ipratropium aerosols every 6 hours with albuterol aerosols every 2 hours. Dyspnea - On methylprednisolone 20 mg IV every 12 hours. Wean the prednisone 20 no grams by mouth daily today Cardiovascular: Septic shock- resolved. NSTEMI/Type II Demand Ischemia History of hypertension Pulmonary hypertension - Unlikely to be ACS. clinically has sepsis syndrome - On Lopressor 25mg Q12 and restarted Procardia 20 mg every 8 hours. Add hydralazine 10 mg every 8 hours and Isordil 10 mg every 8 hours. On Procardia XL 60 mg daily at home.- Monitor HR and BP keep MAP>65mmHg. IV labetalol and IV hydralazine when necessary for systolic blood pressure more than 160 -Echo 07/16 showed EF 50-55%, no vegetations. Small pericardial effusion. Mild pulmonary hypertension 42 mmHg Renal: Acute Kidney Injury- resolving. - Monitor renal function, I/O's, electrolytes replacement per protocol. FEN/GI: Acute protein calorie malnutrition- severe -Currently on nectar thickened liquids. - Famotidine for GI prophylaxis - Docusate sodium/senna 1 tablet twice a day for bowel regimen ID: Acute Community Acquired Pneumonia with MSSA Empyema Septic Shock- resolved UTI with lactobacillus - Continue cefazolin through 07/31 and switch to oral medication 3 weeks - monitor for signs of infections ( Fever, WBC) - ID-Dr. Luna - Pertinent cultures. sputum 07/11 MSSA , urine 07/11 lactobacillus - urine legionella and pneumococcal ag negative 07/11 - Multiple pleural fluid cultures MSSA Endocrine: Hyperglycemia of Critical Illness -- SSI Heme: Anemia Leukocytosis Monitor CBC, s/p transfusion 1unit PRBC 07/19 CBC today pending MSK: Stage I decubitus ulcer Wound care evaluate and treat and follow recommendations Prophylaxis: GI Prophylaxis Famotidine DVT Prophylaxis -- SCDs SQH Lines: Peripheral IV. NEEDS PT AND OT AND SPEECH THERAPY DW RN AND PT PT IS CONFUSED Gee Orourke DO Jul 25, 2017 09:46
[2017-07-25] MEDS: FLUCONAZOLE 100 MG TAB PO SCH (13:45)
--- NOTE | 2017-07-25 14:04 | HHI.IDPN ---
Subjective Subjective Remarks Patient is a 66-year-old female, brought into the hospital for evaluation of respiratory distress. apparently noted increasing shortness of breath. EMS was called, and now she was in respiratory distress, and was intubated. In the ER she was hypotensive, and was given fluid resuscitation and pressors. Patient has remained on the vent. She is afebrile. Her initial WBC was 60, 000. Her creatinine was also elevated. Her chest x-ray showed bilateral infiltrates, and she eventually had placement of a chest tube on the right side yesterday. Fluid analysis is showing empyema. Patient's hemodynamics have improved, and she is off pressors. Her creatinine is also improving. Her WBC is also improving. A sputum culture was done and it has MSSA. Legionella and pneumococcal antigen are negative. Infectious disease consultation has been requested to evaluate the patient. Notes reviewed D/W RN Temps ok Patient confused. Waiting for bed close to nurses' station Sats ok All C/S with MSSA BP ok Antibiotics Ancef Lines PIV Past Medical History Arthritis Anxiety Hypertension Bronchitis COPD Back pain Ulcers Past Surgical History Hysterectomy Back surgeries TENS unit removed from back Allergies: Coded Allergies: penicillin G (Unverified Allergy, Intermediate, Hives, 07/11/17) Sulfa (Sulfonamide Antibiotics) (Unverified Allergy, Unknown, 07/11/17) Objective . Vital Signs Date Time Temp Pulse Resp B/P (MAP) Pulse Ox O2 Delivery O2 Flow Rate FiO2 07/25/17 09:16 100 Nasal Cannula 3.00 07/25/17 08:00 98.3 80 24 135/75 (95) 100 07/25/17 08:00 80 07/25/17 07:00 Nasal Cannula 2.00 35 07/25/17 06:00 105 07/25/17 04:00 98.5 83 35 154/113 (127) 93 07/25/17 04:00 83 07/25/17 02:00 65 07/25/17 00:00 97.6 70 27 141/90 (107) 95 07/25/17 00:00 70 07/24/17 22:07 99 Nasal Cannula 2.00 07/24/17 22:00 77 07/24/17 20:00 98.6 72 24 177/84 (115) 97 07/24/17 20:00 72 07/24/17 19:00 Nasal Cannula 2.00 35 07/24/17 18:00 78 07/24/17 17:00 74 07/24/17 16:00 75 07/24/17 16:00 98.3 75 26 157/79 (105) 99 07/24/17 15:00 79 07/24/17 14:00 78 . Laboratory Tests Test 07/23/17 21:25 07/24/17 11:23 07/25/17 08:07 White Blood Count 15.7 TH/MM3 16.3 TH/MM3 12.7 TH/MM3 Red Blood Count 3.84 MIL/MM3 3.38 MIL/MM3 3.93 MIL/MM3 Hemoglobin 10.3 GM/DL 9.1 GM/DL 10.6 GM/DL Hematocrit 32.1 % 28.0 % 32.8 % Mean Corpuscular Volume 83.5 FL 83.0 FL 83.4 FL Mean Corpuscular Hemoglobin 26.9 PG 27.0 PG 26.9 PG Mean Corpuscular Hemoglobin Concent 32.2 % 32.6 % 32.2 % Red Cell Distribution Width 19.6 % 19.2 % 19.6 % Platelet Count 320 TH/MM3 300 TH/MM3 354 TH/MM3 Mean Platelet Volume 8.5 FL 7.9 FL 7.8 FL Neutrophils (%) (Auto) 86.3 % Lymphocytes (%) (Auto) 7.2 % Monocytes (%) (Auto) 5.6 % Eosinophils (%) (Auto) 0.4 % Basophils (%) (Auto) 0.5 % Neutrophils # (Auto) 14.0 TH/MM3 Lymphocytes # (Auto) 1.2 TH/MM3 Monocytes # (Auto) 0.9 TH/MM3 Eosinophils # (Auto) 0.1 TH/MM3 Basophils # (Auto) 0.1 TH/MM3 CBC Comment DIFF FINAL Differential Comment Hematology Comments Laboratory Tests Test 07/24/17 11:23 07/25/17 08:07 Blood Urea Nitrogen 15 MG/DL 12 MG/DL Creatinine 0.49 MG/DL 0.44 MG/DL Random Glucose 80 MG/DL 72 MG/DL Total Protein 5.4 GM/DL Albumin 1.7 GM/DL Calcium Level 7.6 MG/DL 8.0 MG/DL Phosphorus Level 2.6 MG/DL Magnesium Level 1.9 MG/DL Alkaline Phosphatase 112 U/L Aspartate Amino Transf (AST/SGOT) 21 U/L Alanine Aminotransferase (ALT/SGPT) 10 U/L Total Bilirubin 0.3 MG/DL Sodium Level 141 MEQ/L 144 MEQ/L Potassium Level 3.7 MEQ/L 3.9 MEQ/L Chloride Level 112 MEQ/L 113 MEQ/L Carbon Dioxide Level 22.2 MEQ/L 22.3 MEQ/L Anion Gap 7 MEQ/L 9 MEQ/L Estimat Glomerular Filtration Rate 127 ML/MIN 144 ML/MIN Microbiology Date/Time Source Procedure Growth Status 07/23/17 14:45 Urine Catheterized Urine Urine Culture - Final Marcella Albicans Complete Imaging Chest X-Ray 07/22/17 0000 Signed Impressions: Service Date/Time: Saturday, July 22, 2017 02:51 - CONCLUSION: Unchanged exam. No pneumothorax. Bilateral parenchymal opacities. Cassius Tijerina Jr., MD Chest X-Ray 07/18/17 0000 Signed Impressions: Service Date/Time: Tuesday, July 18, 2017 07:43 - CONCLUSION: 1. Persistent prominent areas of consolidation in the right upper lobe, left lower lung, and to lesser degree right lower lung. The right upper lobe consolidation appears cavitary. 2. New right-sided chest tube. A pneumothorax is not seen. 3. ET tube, NG tube and left subclavian line are well placed. Moustapha Faulkner MD Chest X-Ray 07/16/17 0600 Signed Impressions: Service Date/Time: July 04:31 - CONCLUSION: 1. Bilateral patchy airspace disease with some improved aeration in the bases. 2. Persistent bilateral pleural effusions, right greater than left. Right-sided thoracostomy tube laterally in the lower chest is unchanged. Remaining support tubes are also stable in position. Ken Teran MD Chest CT 07/15/17 0000 Signed Impressions: Service Date/Time: Saturday, July 15, 2017 11:25 - CONCLUSION: 1. There are extensive pleural and parenchymal changes. There are densely consolidated areas cavitation involving the right upper lobe and posterior aspect of the left lower lobe concerning for cavitary areas of pneumonia. 2. There are bilateral pleural effusions. The effusion effusions are small in size. There is considerable consolidated lung in the lung bases bilaterally. 3. Old, healed posterior rib fractures on the left. 4. Small pericardial effusion. Kendall Corona MD Physical Exam GENERAL: awakens easily, not in distress, looks weak SKIN: Cool and dry. Has hypopigmented macules in her UE and LE EYES: Erath conjunctiva. No petechia or hemorrhage. Pupils equal, round and reactive to light. No scleral icterus. No injection or drainage. EARS, NOSE AND THROAT: Nose without bleeding or purulent nasal discharge. NECK: Trachea midline. Supple and not tender, no meningeal signs CARDIOVASCULAR: Distant heart sounds. Regular rate and rhythm. RESPIRATORY: Coarse breath sounds bilaterally, decreased at bases ABDOMEN: Soft, nondistended, but no guarding appreciated. Bowel sounds present and normoactive. No organomegaly. EXTREMITIES: No clubbing. Has mottling in both feet and hands, cold. Mild pedal edema. NEUROLOGICAL: Awake PSYCHIATRIC: cooperative currently LINE: no evidence of infection Assessment & Plan Remarks IMPRESSION Sepsis with shock on presentation due to CAP - hemodynamics better, off pressors Community acquired PNA, wih abscess and with empyema - sputum C/S MSSA - fluid C/S with Staph aureus - S/P mini-thoracotomy Leukocytosis, better Renal insufficiency due to sepsis, and hypotension, improving Respiratory failure, tolerating extubation Hx COPD, smoker Candiduria Encephalopathy RECOMMENDATION Continue Ancef Continue Diflucan Follow CBC Monitor progress Holly Luna MD Jul 25, 2017 14:04
[2017-07-26] VITALS (29 sets, daily range): BP systolic 143–179; BP diastolic 79–98; PULSE 70–86; RESP 18; TEMP 97–98; O2SAT 95–97
[2017-07-26] MEDS: HYDROmorphone HCL PF 1 MG/ML VIAL IV PUSH PRN ×4 (00:03→14:55)
[2017-07-26] MEDS: ceFAZolin 2 GM PREMIX 50 ML IV SCH ×3 (02:24→18:30)
[2017-07-26] MEDS: RESP: ALBUTEROL 2.5 MG/IPRATROPIUM 0.5 MG NEB (SCH) NEB ×4 (03:53→22:00)
[2017-07-26] MEDS: ONDANSETRON HCL 4 MG/2 ML VIAL IV PUSH PRN (05:26)
[2017-07-26] MEDS: hydrALAZINE HCL 10 MG TAB PO SCH ×3 (06:22→22:54)
[2017-07-26] MEDS: NIFEdipine 20 MG CAP PO SCH ×2 (06:22→15:32)
[2017-07-26] MEDS: ISOSORBIDE DINITRATE 10 MG TAB PO SCH ×3 (06:22→22:54)
[2017-07-26] MEDS: INSULIN NovoLIN REGULAR SUPPLEMENTAL SCALE SQ SCH ×4 (08:00→20:38)
[2017-07-26] MEDS: METOPROLOL TARTRATE 25 MG TAB PO SCH ×2 (08:58→20:34)
[2017-07-26] MEDS: FAMOTIDINE 20 MG TAB PO SCH ×2 (08:58→20:34)
[2017-07-26] MEDS: predniSONE 20 MG TAB PO SCH (08:58)
[2017-07-26] MEDS: SODIUM CHLORIDE 0.9% FLUSH 10 ML FLUSH IV FLUSH SCH ×2 (08:58→20:34)
[2017-07-26] MEDS: DOCUSATE SODIUM 50 MG/SENNA 8.6 MG TAB PO SCH ×2 (08:58→20:34)
[2017-07-26] MEDS: hydrALAZINE HCL 20 MG/ML VIAL IV PUSH PRN (09:07)
--- NOTE | 2017-07-26 10:49 | HHI.PR ---
Subjective Remarks 66-year-old female with history of COPD, hypertension, presents to the ER tbrought in by EMS after called stating that his was having respiratory issues. She was found in respiratory distress, GCS 6, and was intubated by EMS for airway protection. They state that she initially sounded like she had rales bilaterally. She is not able to give me any further history. They found that her blood pressure was 70 systolic and started her on IV fluids and Levophed. 07/12: still on vasopressors. weaning fio2. remains in shock. mental status still poor, although now purposeful. renal function slowly improving, although remains severely oliguric. 07/13: clinically starting to improve. off vasopressors. fio2 improving. cultures still no growth to date. renal function also improving. 07/14: Remains intubated sedated, encephalopathic. Failed SBT due to tachypnea. UO 2.3 L in 24 hours. On sedation hold do not follow commands. Get CT chest to evaluate loculated effusion 07/15: R pigtail chest tube placed yesterday and 07/14/17. Fluid had appearance of early empyema (yellow cloudy). Pleural fluid studies shows WBC count of 32, 227 with 93% neutrophils. Fluid LDH is 2587 (serum LDH 143) fluid glucose is 44 (serum 158). CTS and ID consulted 07/16: Remains intubated sedated, on sedation hold patient becomes tachypneic. CTS consulted for right empyema. Patient is scheduled for right video-assisted thoracoscopy, with possible thoracotomy by Dr. Carpio 07/17/17. ID also following. CT chest from yesterday shows right upper lobe lobe and left lower lobe cavitating pneumonia, bilateral small effusions. Remains critically ill but stabilizing 07/17 Patient is sedated and intubated. Afebrile. For right VATS/thoracotomy and pleurodesis today. 07/18 Patient s/p mini thoracotomy, right VATS, decortication yesterday. Remains sedated with Diprivan. Fentanyl and intubated. Afebrile. 07/19 No events overnight. Patient did not tolerate CPAP trials yesterday as she became tachypneic, tachycardic and hypertensive. Sedated with Diprivan and Fentanyl drips. 07/20 Patient remains sedated with Diprivan, fentanyl and intubated. Afebrile. 07/21 No events overnight. Sedated and intubated. Tolerated CPAP for several hrs yesterday. Afebrile. 07/22: Extubated yesterday tolerating well. Failed swallow eval yesterday repeat today. CT surgery planning on chest tube removal today. BP elevated, getting when necessary labetalol and hydralazine IV 07/23: Resting comfortably in no acute distress. On room air. Tolerating nectar thickened diet. Linares placement removed today. Restarting Procardia today 07/24: Receiving as needed labetalol for hypertension. Urinary retention noted. On room air. Complaining of pain in right upper extremity. 07/25 PATIENT TRANSFERRED TO OUR SERVICE TODAY DW RN AND PT STATES "[place]" VERY CONFUSED 07-26 STILL CONFUSED BUT LESS THAN YESTERDAY DW RN AND PT CAN MOVE TO MED/SURG TELE FLOOR PT AND OT INCREASE ACTIVITY Objective Vitals Vital Signs Date Time Temp Pulse Resp B/P (MAP) Pulse Ox O2 Delivery O2 Flow Rate FiO2 07/26/17 08:30 97 Nasal Cannula 2.00 07/26/17 08:30 97.6 86 18 179/91 (120) 97 07/26/17 07:01 84 07/26/17 06:23 151/87 (108) 07/26/17 06:00 73 07/26/17 05:00 72 07/26/17 04:00 73 07/26/17 03:00 96 Nasal Cannula 2.00 07/26/17 03:00 76 07/26/17 03:00 98.0 76 18 151/79 (103) 96 07/26/17 02:00 73 07/26/17 01:00 77 07/26/17 00:00 74 07/25/17 23:30 96 Nasal Cannula 2.00 07/25/17 23:30 97.5 87 18 148/79 (102) 96 07/25/17 23:00 93 07/25/17 22:00 94 07/25/17 21:50 98 Nasal Cannula 2.00 07/25/17 21:00 84 07/25/17 20:45 97.9 79 18 182/90 (120) 99 07/25/17 20:45 99 Nasal Cannula 2.00 07/25/17 20:00 88 07/25/17 19:00 80 9/23/17 18:48 97 Nasal Cannula 2.00 07/25/17 18:30 72 07/25/17 16:00 90 07/25/17 16:00 97.5 84 24 117/70 (86) 98 07/25/17 14:00 62 07/25/17 12:00 98.2 61 22 145/80 (101) 96 07/25/17 12:00 61 I/O 07/25/17 07/25/17 07/25/17 07/26/17 07/26/17 07/26/17 07:00 15:00 23:00 07:00 15:00 23:00 Intake Total 200 ml 550 ml 290 ml Output Total 200 ml Balance 200 ml 550 ml 90 ml Intake Oral 200 ml 450 ml 240 ml IV Total 100 ml 50 ml Output Urine Total 200 ml # Voids 6 2 4 # Bowel Movements 2 2 1 Result Diagram: 07/25/17 0807 07/25/17 0807 Other Results Laboratory Tests Test 07/23/17 14:45 07/23/17 21:25 07/24/17 11:23 07/25/17 08:07 Urine Color YELLOW Urine Turbidity CLEAR Urine pH 6.5 Urine Specific [place] 1.015 Urine Protein 30 mg/dL Urine Glucose (UA) NEG mg/dL Urine Ketones NEG mg/dL Urine Occult Blood NEG Urine Nitrite NEG Urine Bilirubin NEG Urine Urobilinogen LESS THAN 2.0 MG/DL Urine Leukocyte Esterase LARGE Urine RBC 3 /hpf Urine WBC 39 /hpf Urine Squamous Epithelial Cells <1 /hpf Urine Bacteria FEW /hpf Urine Yeast with Hyphae MANY Urine Yeast (Budding) MANY Microscopic Urinalysis Comment CATH-CULTURE IND White Blood Count 15.7 TH/MM3 16.3 TH/MM3 12.7 TH/MM3 Red Blood Count 3.84 MIL/MM3 3.38 MIL/MM3 3.93 MIL/MM3 Hemoglobin 10.3 GM/DL 9.1 GM/DL 10.6 GM/DL Hematocrit 32.1 % 28.0 % 32.8 % Mean Corpuscular Volume 83.5 FL 83.0 FL 83.4 FL Mean Corpuscular Hemoglobin 26.9 PG 27.0 PG 26.9 PG Mean Corpuscular Hemoglobin Concent 32.2 % 32.6 % 32.2 % Red Cell Distribution Width 19.6 % 19.2 % 19.6 % Platelet Count 320 TH/MM3 300 TH/MM3 354 TH/MM3 Mean Platelet Volume 8.5 FL 7.9 FL 7.8 FL Neutrophils (%) (Auto) 86.3 % Lymphocytes (%) (Auto) 7.2 % Monocytes (%) (Auto) 5.6 % Eosinophils (%) (Auto) 0.4 % Basophils (%) (Auto) 0.5 % Neutrophils # (Auto) 14.0 TH/MM3 Lymphocytes # (Auto) 1.2 TH/MM3 Monocytes # (Auto) 0.9 TH/MM3 Eosinophils # (Auto) 0.1 TH/MM3 Basophils # (Auto) 0.1 TH/MM3 CBC Comment DIFF FINAL Differential Comment Hematology Comments Blood Urea Nitrogen 15 MG/DL 12 MG/DL Creatinine 0.49 MG/DL 0.44 MG/DL Random Glucose 80 MG/DL 72 MG/DL Total Protein 5.4 GM/DL Albumin 1.7 GM/DL Calcium Level 7.6 MG/DL 8.0 MG/DL Phosphorus Level 2.6 MG/DL Magnesium Level 1.9 MG/DL Alkaline Phosphatase 112 U/L Aspartate Amino Transf (AST/SGOT) 21 U/L Alanine Aminotransferase (ALT/SGPT) 10 U/L Total Bilirubin 0.3 MG/DL Sodium Level 141 MEQ/L 144 MEQ/L Potassium Level 3.7 MEQ/L 3.9 MEQ/L Chloride Level 112 MEQ/L 113 MEQ/L Carbon Dioxide Level 22.2 MEQ/L 22.3 MEQ/L Anion Gap 7 MEQ/L 9 MEQ/L Estimat Glomerular Filtration Rate 127 ML/MIN 144 ML/MIN Imaging Last Impressions Chest X-Ray 07/24/17 0600 Signed Impressions: Service Date/Time: Monday, July 24, 2017 04:44 - CONCLUSION: 1. Removal of right chest tube without pneumothorax. Exam otherwise stable. Chas Sanches MD Chest CT 07/15/17 0000 Signed Impressions: Service Date/Time: Saturday, July 15, 2017 11:25 - CONCLUSION: 1. There are extensive pleural and parenchymal changes. There are densely consolidated areas cavitation involving the right upper lobe and posterior aspect of the left lower lobe concerning for cavitary areas of pneumonia. 2. There are bilateral pleural effusions. The effusion effusions are small in size. There is considerable consolidated lung in the lung bases bilaterally. 3. Old, healed posterior rib fractures on the left. 4. Small pericardial effusion. Kendall Corona MD Objective Remarks GENERAL: 66-year-old female resting in bed in no acute distress SKIN: Warm and dry. Stage I decubitus ulcer HEAD: Atraumatic. Normocephalic. EYES: Pupils equal and round. No scleral icterus. No injection or drainage. EOMI ENT: No nasal bleeding or discharge. Mucous membranes pink and moist. TONGUE MIDLINE NECK: Trachea midline. No JVD. SUPPLE CARDIOVASCULAR: Regular rate and rhythm. S1, S2 no S3 OR S4. RESPIRATORY: Coarse rhonchorous breath sounds appreciated bilaterally. No wheezing GASTROINTESTINAL: Abdomen soft, non-tender, nondistended. Hepatic and splenic margins not palpable. MUSCULOSKELETAL: Extremities with trace bilateral lower extremity edema. 1+ left upper extremity edema.. NEUROLOGICAL: Awake and alert. No obvious cranial nerve deficits. Motor grossly within normal limits. 4 out of 5 muscle strength in the arms and legs. Normal speech. PSYCHIATRIC: INAppropriate mood and affect; insight and judgment ABnormal. Procedures - s/p right VATS, mini thoracotomy, decortication 07/17 for organizing empyema. cc: Viraj Carpio MD Operative Report Date of Surgery: Jul 17, 2017 Preoperative Diagnosis: Postoperative Diagnosis: Procedure: 1. Right Video Assisted Thoracoscopic Surgery (VATS) 2. Right Posterolateral Muscle Sparing Mini-Thoracotomy 3. Decortication 4. Intercostal Nerve Block Surgeon: Viraj Carpio Case Manager(s): Danny Sargent Operation and Findings: PREOPERATIVE DIAGNOSIS 1. Right Organized Empyema 2. Loculated Abscess Cavities 3. Pneumonia 4. Respiratory Failure POSTOPERATIVE DIAGNOSIS same PROCEDURES 1. Right Video Assisted Thoracoscopic Surgery (VATS) 2. Right Posterolateral Muscle Sparing Mini-Thoracotomy 3. Decortication 4. Intercostal Nerve Block SURGEON Viraj Carpio MD Medications and IVs Current Medications Sodium Chloride 1,000 ml @ 1,000 mls/hr Q1H ONCE IV Last administered on t 07:05; Start 07/11/17 at 06:45; Stop 07/11/17 at 07:44; Status DC Cefepime HCl 2000 mg/Sodium Chloride 100 ml @ 200 mls/hr ONCE STAT IV ; Start 07/11/17 at 07:17; Stop 07/11/17 at 07:32; Status DC Azithromycin 500 mg/Sodium Chloride 250 ml @ 250 mls/hr ONCE STAT IV ; Start 07/11/17 at 07:17; Stop 07/11/17 at 07:32; Status DC Vancomycin HCl 1000 mg/Sodium Chloride 250 ml @ 250 mls/hr ONCE ONCE IV Last administered on 07/11/17 07:47; Start 07/11/17 at 07:30; Stop 07/11/17 at 08:29; Status DC Levofloxacin/ Dextrose 100 ml @ 100 mls/hr ONCE ONCE IV Last administered on 07/11/17 07:48; Start 07/11/17 at 07:30; Stop 07/11/17 at 08:29; Status DC Piperacillin Sod/ Tazobactam Sod 50 ml @ 100 mls/hr ONCE ONCE IV Last administered on 07/11/17 08:12; Start 07/11/17 at 07:30; Stop 07/11/17 at 07:59; Status DC Sodium Chloride 1,000 ml @ 999 mls/hr BOLUS ONCE IV Last administered on 07:41; Start 07/11/17 at 07:30; Stop 07/11/17 at 08:30; Status DC Propofol 100 ml @ 0 mls/hr TITRATE IV Last administered on 07/21/17 09:34; Start 07/11/17 at 09:00; Stop 07/21/17 at 14:52; Status DC Fentanyl Citrate 250 ml @ 0 mls/hr TITRATE IV Last administered on 07/20/17 13 :23; Start 07/11/17 at 09:00; Stop 07/21/17 at 14:52; Status DC Chlorhexidine Gluconate (Peridex 0.12% Liq) 15 ml BID@08,20 MT Last administered on 07/21/17 09:33; Start 07/11/17 at 20:00 Dextrose (D50w (Vial) Inj) 25 ml UNSCH PRN IV PUSH HYPOGLYCEMIA-SEE COMMENTS; Start 07/11/17 at 09:00 Insulin Human Regular (NovoLIN R SUPPLEMENTAL SCALE) 1 Q6HR SQ Last administered on 07/15/17 12:00; Start 07/11/17 at 12:00; Stop 07/24/17 at 10:12 ; Status DC Albuterol/ Ipratropium (Duoneb Neb) 1 ampule Q6HR NEB INH Last administered on 07/14/17 08:31; Start 07/11/17 at 10:00; Stop 07/14/17 at 16:42; Status DC Albuterol/ Ipratropium (Duoneb Neb) 1 ampule Q2HR NEB PRN INH WHEEZING Last administered on 07/19/17 20:50; Start 07/11/17 at 09:00; Stop 07/23/17 at 14:39 ; Status DC Sodium Chloride 1,000 ml @ 120 mls/hr Q8H20M IV Last administered on 08:31; Start 07/11/17 at 08:48; Stop 07/13/17 at 11:30; Status DC Famotidine (Pepcid Inj) 10 mg Q12HR IV PUSH Last administered on 07/17/17 07: 35; Start 07/11/17 at 10:00; Stop 07/17/17 at 14:53; Status DC Ondansetron HCl (Zofran Inj) 4 mg Q6H PRN IV PUSH NAUSEA OR VOMITING Last administered on 07/26/17 05:26; Start 07/11/17 at 09:00 Miscellaneous Information 1 Q361D XX ; Start 07/11/17 at 09:00 Chlorhexidine Gluconate (Chlorhexidine 2% Cloth) Taper DAILY@04 TOP Last administered on 07/18/17 03:19; Start 07/12/17 at 04:00; Stop 07/08/18 at 03:59 Chlorhexidine Gluconate (Chlorhexidine 2% Cloth) 3 pack UNSCH PRN TOP HYGIENIC CARE; Start 07/11/17 at 09:00 Senna/Docusate Sodium (Pallavi-Colace) 1 tab BID PO Last administered on 09:08; Start 07/11/17 at 10:00 Piperacillin Sod/ Tazobactam Sod 50 ml @ 100 mls/hr Q8H IV Last administered on 07/15/17 00:35; Start 07/11/17 at 17:00; Stop 07/15/17 at 07:21; Status DC Levofloxacin/ Dextrose 150 ml @ 100 mls/hr Q48H IV Last administered on 09:21; Start 07/13/17 at 09:00; Stop 07/20/17 at 09:17; Status DC Pharmacy Profile Note 0 ml @ 0 mls/hr UNSCH OTHER ; Start 07/11/17 at 09:00; Stop 07/15/17 at 07:21; Status DC Etomidate (Amidate Inj) 20 mg ONCE ONCE IV PUSH Last administered on 07/11/17 09:33; Start 07/11/17 at 09:30; Stop 07/11/17 at 09:31; Status DC Etomidate (Amidate Inj) 20 mg STK-MED ONCE .ROUTE ; Start 07/11/17 at 09:28; Stop 07/11/17 at 09:29; Status DC Norepinephrine Bitartrate 250 ml @ 7.5 mls/hr TITRATE PRN IV Maintain MAP > 65 mmHg Last administered on 07/12/17 15:01; Start 07/11/17 at 19:30; Stop 07/13 at 11:30; Status DC Methylprednisolone Sodium Succinate (SoluMEDROL INJ) 60 mg Q12HR IV PUSH Last administered on 07/17/17 07:35; Start 07/11/17 at 21:00; Stop 07/17/17 at 08:34 ; Status DC Heparin Sodium (Porcine) (Heparin Inj) 5,000 units Q8HR SQ Last administered on 07/15/17 06:15; Start 07/11/17 at 22:00; Status Future Hold Sodium Chloride 1,000 ml @ 999 mls/hr Q1H IV Last administered on 07/12/17 03 :19; Start 07/12/17 at 02:15; Stop 07/12/17 at 04:14; Status DC Vancomycin HCl 1000 mg/Sodium Chloride 250 ml @ 250 mls/hr ONCE ONCE IV Last administered on 07/12/17 09:27; Start 07/12/17 at 09:00; Stop 07/12/17 at 09:59 ; Status DC Vancomycin HCl 1000 mg/Sodium Chloride 250 ml @ 250 mls/hr ONCE ONCE IV Last administered on 07/13/17 11:35; Start 07/13/17 at 10:00; Stop 07/13/17 at 10:59 ; Status DC Furosemide (Lasix Inj) 60 mg ONCE ONCE IV PUSH Last administered on 07/13/17t 14:20; Start 07/13/17 at 11:30; Stop 07/13/17 at 12:52; Status DC Magnesium Oxide (Mag-Ox) 800 mg UNSCH PRN PO For Magnesium 1.2 - 1.6 mg/dL; Start 07/13/17 at 11:30 Magnesium Sulfate 4 gm/Sodium Chloride 100 ml @ 50 mls/hr UNSCH PRN IV For Magnesium 0.9 - 1.1 mg/dL; Start 07/13/17 at 11:30 Magnesium Sulfate 2 gm/Sodium Chloride 100 ml @ 50 mls/hr UNSCH PRN IV For Magnesium 1.2 - 1.6 mg/dL; Start 07/13/17 at 11:30 Potassium Chloride 100 ml @ 50 mls/hr Q2H PRN IV For Potassium 2.8 - 3.2 mEq/L ; Start 07/13/17 at 11:30 Potassium Chloride 100 ml @ 50 mls/hr Q2H PRN IV For Potassium 3.3 - 3.5 mEq/L ; Start 07/13/17 at 11:30 Potassium Chloride 100 ml @ 50 mls/hr Q2H PRN IV For Potassium 2.8 - 3.2 mEq/L ; Start 07/13/17 at 11:30 Potassium Chloride 100 ml @ 25 mls/hr UNSCH PRN IV For Potassium 3.3 - 3.5 mEq /L; Start 07/13/17 at 11:30 Potassium Phosphate (K-Phos) 2,000 mg Q4H PRN PO For Phosphorus < 2.5 mg/dL; Start 07/13/17 at 11:30 Potassium Phosphate (K-Phos) 2,000 mg UNSCH PRN PO/TUBE SEE LABEL COMMENTS; Start 07/13/17 at 11:30 Potassium Phosphate 30 mmol/ Sodium Chloride 260 ml @ 42 mls/hr UNSCH PRN IV SEE LABEL COMMENTS; Start 07/13/17 at 11:30 Sodium Phosphate 30 mmol/Sodium Chloride 250 ml @ 42 mls/hr UNSCH PRN IV For Phosphorus < 2.5 mg/dL; Start 07/13/17 at 11:30 Vancomycin HCl 1000 mg/Sodium Chloride 250 ml @ 250 mls/hr Q24H IV Last administered on 07/14/17 11:29; Start 07/14/17 at 12:00; Stop 07/15/17 at 07:21 ; Status DC Miscellaneous Information SPECIFIC LAB TO BE DRAWN:VANCO TROUGH DATE TO... ONCE ONCE .XX ; Start 07/15/17 at 11:45; Stop 07/15/17 at 11:46; Status DC Albuterol/ Ipratropium (Duoneb Neb) 1 ampule Q6HR NEB INH Last administered on 07/18/17 14:37; Start 07/14/17 at 22:00; Stop 07/18/17 at 21:59; Status DC Ceftriaxone Sodium 2000 mg/ Sodium Chloride 100 ml @ 200 mls/hr Q24H IV Last administered on 07/17/17 07:35; Start 07/15/17 at 08:00; Stop 07/17/17 at 16:45 ; Status DC Sodium Chloride (NS Flush) 2 ml BID IV FLUSH Last administered on 07/26/17 08: 58; Start 07/16/17 at 09:00 Sodium Chloride (NS Flush) 2 ml UNSCH PRN IV FLUSH FLUSH AFTER USING IV ACCESS Last administered on 07/15/17 20:02; Start 07/15/17 at 13:30 Vancomycin HCl 1000 mg/Sodium Chloride 1,000 ml @ 0 mls/hr TREE PLANTER IRRIGATION Last administered on 07/17/17 11:34; Start 07/15/17 at 13:30; Stop 07/22/17 at 13:29; Status DC Vancomycin HCl 1250 mg/Sodium Chloride 262.5 ml @ 262.5 mls/ hr TREE PLANTER IV Last administered on 07/17/17 10:10; Start 07/15/17 at 13:30; Stop 07/22/17 at 13:29; Status DC Chlorhexidine Gluconate (Hibiclens 4% Top Soln) 1 applic TREE PLANTER TOPICAL ; Start 07/15/17 at 13:30; Stop 07/22/17 at 13:29; Status DC Metoprolol Tartrate (Lopressor Inj) 5 mg STK-MED ONCE .ROUTE ; Start 07/16/17 at 13:00; Stop 07/16/17 at 13:01; Status DC Diltiazem HCl (Cardizem Inj) 15 mg ONCE ONCE IV PUSH Last administered on 07/16 13:26; Start 07/16/17 at 14:00; Stop 07/16/17 at 14:01; Status DC Diltiazem HCl 125 mg/Sodium Chloride 125 ml @ 5 mls/hr TITRATE PRN IV Tachycardia Last administered on 07/16/17 13:27; Start 07/16/17 at 14:00; Stop 07/17/17 at 08:34; Status DC Metoprolol Tartrate (Lopressor Inj) 5 mg ONCE ONCE IV PUSH Last administered on 07/16/17 13:26; Start 07/16/17 at 14:00; Stop 07/16/17 at 14:01; Status DC Potassium Chloride (KCl) 30 meq ONCE ONCE PO Last administered on 07/16/17 13 :25; Start 07/16/17 at 13:15; Stop 07/16/17 at 13:16; Status DC Magnesium Sulfate/ Dextrose 100 ml @ 100 mls/hr ONCE ONCE IV Last administered on 07/16/17 13:26; Start 07/16/17 at 14:00; Stop 07/16/17 at 14:59 ; Status DC Methylprednisolone Sodium Succinate (SoluMEDROL INJ) 30 mg Q12HR IV PUSH Last administered on 07/22/17 09:03; Start 07/17/17 at 21:00; Stop 07/22/17 at 10:46 ; Status DC Heparin Sodium (Porcine) (Heparin Inj) 30,000 units STK-MED ONCE .ROUTE ; Start 07/17/17 at 09:30; Stop 07/17/17 at 09:31; Status DC Bupivacaine Liposome 20 ml/ Dexamethasone Sodium Phosphate 4 mg/Morphine Sulfate 8 mg/ Sodium Chloride 41.8 ml @ 0 mls/hr ONCE ONCE IRRIGATION ; Start 07/17/17 at 09:45; Stop 07/17/17 at 09:46; Status DC Miscellaneous Information (Post-op Orders (for Pharmacy)) STAT ONCE OTHER Last administered on 07/17/17 12:30; Start 07/17/17 at 12:30; Stop 07/17/17 at 13:20; Status DC Vancomycin HCl 1 gm/Sodium Chloride 250 ml @ 250 mls/hr Q12H IV Last administered on 07/18/17 09:14; Start 07/17/17 at 22:00; Stop 07/18/17 at 10:59 ; Status DC Acetaminophen 100 ml @ 400 mls/hr Q6H IV Last administered on 07/18/17 05:14 ; Start 07/17/17 at 12:30; Stop 07/18/17 at 06:44; Status DC Ketorolac Tromethamine (Toradol Inj) 15 mg Q6H IV PUSH Last administered on 09:13; Start 07/17/17 at 13:00; Stop 07/18/17 at 07:01; Status DC Famotidine (Pepcid Inj) 20 mg Q12HR IV PUSH Last administered on 07/24/17 08: 45; Start 07/17/17 at 21:00; Stop 07/24/17 at 10:12; Status DC Cefazolin Sodium/ Dextrose 50 ml @ 100 mls/hr Q8H IV Last administered on 07/26 02:24; Start 07/17/17 at 18:00 Hydromorphone HCl (Dilaudid Pf Inj) 0.5 mg Q4H PRN IV PUSH PAIN Last administered on 07/26/17 09:08; Start 07/18/17 at 15:45 Bumetanide (Bumex Inj) 1 mg ONCE ONCE IV PUSH Last administered on 07/19/17 11:02; Start 07/19/17 at 10:00; Stop 07/19/17 at 10:01; Status DC Albuterol/ Ipratropium (Duoneb Neb) 1 ampule Q4HR NEB NEB Last administered on 07/23/17 11:16; Start 07/19/17 at 12:00; Stop 07/23/17 at 11:59; Status DC Metoprolol Tartrate (Lopressor) 25 mg Q12HR PO Last administered on 07/26/17 08:58; Start 07/21/17 at 13:15 Hydralazine HCl (Apresoline Inj) 10 mg Q6H PRN IV PUSH SYS BP GREATER THAN 160 MMHG Last administered on 07/23/17 12:54; Start 07/21/17 at 13:15; Stop at 10:15; Status DC Labetalol HCl (Trandate Inj) 20 mg Q4H PRN IV SBP > 170 Last administered on 04:28; Start 07/22/17 at 02:30 Methylprednisolone Sodium Succinate (SoluMEDROL INJ) 20 mg Q12HR IV PUSH Last administered on 07/24/17 08:44; Start 07/22/17 at 21:00; Stop 07/24/17 at 10:12 ; Status DC Hydromorphone HCl (Dilaudid Pf Inj) 0.5 mg ONCE ONCE IV PUSH Last administered on 07/22/17 23:03; Start 07/22/17 at 23:00; Stop 07/22/17 at 23:01 ; Status DC Albuterol/ Ipratropium (Duoneb Neb) 1 ampule Q6HR NEB NEB Last administered on 07/25/17 21:44; Start 07/23/17 at 16:00 Albuterol Sulfate (Albuterol Neb) 2.5 mg Q2HR NEB PRN NEB DYSPNEA; Start at 14:30 Nifedipine (Procardia) 10 mg Q8HR PO Last administered on 07/24/17 06:44; Start 07/23/17 at 22:00; Stop 07/24/17 at 10:15; Status DC Insulin Human Regular (NovoLIN R SUPPLEMENTAL SCALE) 1 ACHS SQ ; Start 07/24/17 at 12:00 Famotidine (Pepcid) 20 mg BID PO Last administered on 07/26/17 08:58; Start at 21:00 Prednisone (Deltasone) 20 mg DAILY PO Last administered on 07/26/17 08:58; Start 07/25/17 at 09:00 Hydralazine HCl (Apresoline Inj) 10 mg Q2HR PRN IV PUSH SYS BP GREATER THAN 170 MMHG Last administered on 07/26/17 09:07; Start 07/24/17 at 10:15 Nifedipine (Procardia) 20 mg Q8HR PO Last administered on 07/26/17 06:22; Start 07/24/17 at 14:00 Hydralazine HCl (Apresoline) 10 mg Q8HR PO Last administered on 07/26/17 06:22 ; Start 07/24/17 at 14:00 Isosorbide Dinitrate (Isordil) 10 mg Q8HR PO Last administered on 07/26/17 06: 22; Start 07/24/17 at 14:00 Nitroglycerin (Nitroglycerin 2% Oint) 2 inch Q6HR PRN TOPICAL SBP>170, DBP>90; Start 07/24/17 at 10:15 Fluconazole (Diflucan) 100 mg Q24H PO Last administered on 07/25/17 13:45; Start 07/24/17 at 15:00; Stop 07/31/17 at 14:59 A/P Problem List: (1) Empyema ICD Code: J86.9 - Pyothorax without fistula (2) S/P Right Thoracotomy with Decortication Assessment and Plan Assessment and Plan Neuro/Psych: Metabolic encephalopathy - resolved - Dilaudid when necessary for pain - Neuro checks per ICU protocol Respiratory: Right sided empyema/eczematous secondary to staph aureus Severe bilateral community-acquired pneumonia, with cavitation Acute hypoxic respiratory failure-resolved COPD exacerbation - s/p right VATS, mini thoracotomy, decortication 07/17 for organizing empyema. Chest tube discontinued 07/22 - CT chest initially revealed cavitating pneumonia involving right upper lobe and left lower lobe - Extubated 07/21/17 at 1500 and tolerating well - CXR: Repeat 07/22 every morning -Continue albuterol/ipratropium aerosols every 6 hours with albuterol aerosols every 2 hours. Dyspnea - On methylprednisolone 20 mg IV every 12 hours. Wean the prednisone 20 no grams by mouth daily today Cardiovascular: Septic shock- resolved. NSTEMI/Type II Demand Ischemia History of hypertension Pulmonary hypertension - Unlikely to be ACS. clinically has sepsis syndrome - On Lopressor 25mg Q12 and restarted Procardia 20 mg every 8 hours. Add hydralazine 10 mg every 8 hours and Isordil 10 mg every 8 hours. On Procardia XL 60 mg daily at home.- Monitor HR and BP keep MAP>65mmHg. IV labetalol and IV hydralazine when necessary for systolic blood pressure more than 160 -Echo 07/16 showed EF 50-55%, no vegetations. Small pericardial effusion. Mild pulmonary hypertension 42 mmHg Renal: Acute Kidney Injury- resolving. - Monitor renal function, I/O's, electrolytes replacement per protocol. FEN/GI: Acute protein calorie malnutrition- severe -Currently on nectar thickened liquids. - Famotidine for GI prophylaxis - Docusate sodium/senna 1 tablet twice a day for bowel regimen ID: Acute Community Acquired Pneumonia with MSSA Empyema Septic Shock- resolved UTI with lactobacillus - Continue cefazolin through 07/31 and switch to oral medication 3 weeks - monitor for signs of infections ( Fever, WBC) - ID-Dr. Luna - Pertinent cultures. sputum 07/11 MSSA , urine 07/11 lactobacillus - urine legionella and pneumococcal ag negative 07/11 - Multiple pleural fluid cultures MSSA Endocrine: Hyperglycemia of Critical Illness -- SSI Heme: Anemia Leukocytosis Monitor CBC, s/p transfusion 1unit PRBC 07/19 CBC today pending MSK: Stage I decubitus ulcer Wound care evaluate and treat and follow recommendations Prophylaxis: GI Prophylaxis Famotidine DVT Prophylaxis -- SCDs SQH Lines: Peripheral IV. NEEDS PT AND OT AND SPEECH THERAPY DW RN AND PT PT IS CONFUSED OK FOR MED/SURG TELE NEAR RN STATION Gee Orourke DO Jul 26, 2017 10:49
[2017-07-26] MEDS: FLUCONAZOLE 100 MG TAB PO SCH (15:33)
[2017-07-26] MEDS: CHLORHEXIDINE 0.12% (ORAL KIT) 15 ML CUP MT SCH (19:15)
[2017-07-26] MEDS: CHLORHEXIDINE GLUCONATE 2 % 1 PACK (2 CLOTHS) TOP SCH (19:15)
[2017-07-26] MEDS: NIFEdipine 10 MG CAP PO SCH (22:54)
[2017-07-27] VITALS (7 sets, daily range): BP systolic 0–186; BP diastolic 0–97; PULSE 77–83; RESP 18; TEMP 97.1–97.8; O2SAT 91–97
[2017-07-27] MEDS: ceFAZolin 2 GM PREMIX 50 ML IV SCH ×3 (01:04→16:27)
[2017-07-27] MEDS: HYDROmorphone HCL PF 1 MG/ML VIAL IV PUSH PRN ×5 (01:04→20:50)
[2017-07-27] MEDS: RESP: ALBUTEROL 2.5 MG/IPRATROPIUM 0.5 MG NEB (SCH) NEB ×2 (03:56→08:07)
[2017-07-27] MEDS: ISOSORBIDE DINITRATE 10 MG TAB PO SCH ×3 (05:49→20:54)
[2017-07-27] MEDS: hydrALAZINE HCL 10 MG TAB PO SCH ×3 (05:49→20:54)
[2017-07-27] MEDS: NIFEdipine 10 MG CAP PO SCH ×3 (05:49→20:54)
[2017-07-27] MEDS: CHLORHEXIDINE 0.12% (ORAL KIT) 15 ML CUP MT SCH ×2 (08:00→20:00)
[2017-07-27] MEDS: INSULIN NovoLIN REGULAR SUPPLEMENTAL SCALE SQ SCH ×4 (08:00→20:53)
[2017-07-27] MEDS: METOPROLOL TARTRATE 25 MG TAB PO SCH ×2 (08:36→20:48)
[2017-07-27] MEDS: predniSONE 20 MG TAB PO SCH (08:36)
[2017-07-27] MEDS: FAMOTIDINE 20 MG TAB PO SCH ×2 (08:36→20:48)
[2017-07-27] MEDS: DOCUSATE SODIUM 50 MG/SENNA 8.6 MG TAB PO SCH ×2 (08:36→20:48)
[2017-07-27] MEDS: SODIUM CHLORIDE 0.9% FLUSH 10 ML FLUSH IV FLUSH SCH ×2 (08:37→20:49)
[2017-07-27 09:37] LABS: AUTOMATED NEUTROPHIL # 7.2 TH/MM3 (1.8-7.7); BASOPHIL # 0.1 TH/MM3 (0-0.2); BASOPHIL % 0.8 % (0.0-2.0); EOSINOPHIL # 0.3 TH/MM3 (0-0.4); EOSINOPHIL % 2.8 % (0.0-4.0); HEMATOCRIT 27.4 % (35.0-46.0); HEMO FLAGS DIFF FINAL; LYMPH % 15.1 % (9.0-44.0); LYMPHOCYTE # 1.4 TH/MM3 (1.0-4.8); MEAN CELL VOLUME 83.4 FL (80.0-100.0); MEAN CORPUSCULAR HEMOGLOBIN 27.3 PG (27.0-34.0); MEAN CORPUSCULAR HGB CONC 32.7 % (32.0-36.0); MONO % 4.1 % (0.0-8.0); NEUT % 77.2 % (16.0-70.0); PLATELET COUNT 342 TH/MM3 (150-450); RED BLOOD COUNT 3.29 MIL/MM3 (4.00-5.30); WHITE BLOOD COUNT 9.4 TH/MM3 (4.0-11.0)
--- NOTE | 2017-07-27 09:37 | HHI.PR ---
Subjective Remarks 66-year-old female with history of COPD, hypertension, presents to the ER tbrought in by EMS after called stating that his was having respiratory issues. She was found in respiratory distress, GCS 6, and was intubated by EMS for airway protection. They state that she initially sounded like she had rales bilaterally. She is not able to give me any further history. They found that her blood pressure was 70 systolic and started her on IV fluids and Levophed. 07/12: still on vasopressors. weaning fio2. remains in shock. mental status still poor, although now purposeful. renal function slowly improving, although remains severely oliguric. 07/13: clinically starting to improve. off vasopressors. fio2 improving. cultures still no growth to date. renal function also improving. 07/14: Remains intubated sedated, encephalopathic. Failed SBT due to tachypnea. UO 2.3 L in 24 hours. On sedation hold do not follow commands. Get CT chest to evaluate loculated effusion 07/15: R pigtail chest tube placed yesterday and 07/14/17. Fluid had appearance of early empyema (yellow cloudy). Pleural fluid studies shows WBC count of 32, 227 with 93% neutrophils. Fluid LDH is 2587 (serum LDH 143) fluid glucose is 44 (serum 158). CTS and ID consulted 07/16: Remains intubated sedated, on sedation hold patient becomes tachypneic. CTS consulted for right empyema. Patient is scheduled for right video-assisted thoracoscopy, with possible thoracotomy by Dr. Carpio 07/17/17. ID also following. CT chest from yesterday shows right upper lobe lobe and left lower lobe cavitating pneumonia, bilateral small effusions. Remains critically ill but stabilizing 07/17 Patient is sedated and intubated. Afebrile. For right VATS/thoracotomy and pleurodesis today. 07/18 Patient s/p mini thoracotomy, right VATS, decortication yesterday. Remains sedated with Diprivan. Fentanyl and intubated. Afebrile. 07/19 No events overnight. Patient did not tolerate CPAP trials yesterday as she became tachypneic, tachycardic and hypertensive. Sedated with Diprivan and Fentanyl drips. 07/20 Patient remains sedated with Diprivan, fentanyl and intubated. Afebrile. 07/21 No events overnight. Sedated and intubated. Tolerated CPAP for several hrs yesterday. Afebrile. 07/22: Extubated yesterday tolerating well. Failed swallow eval yesterday repeat today. CT surgery planning on chest tube removal today. BP elevated, getting when necessary labetalol and hydralazine IV 07/23: Resting comfortably in no acute distress. On room air. Tolerating nectar thickened diet. Linares placement removed today. Restarting Procardia today 07/24: Receiving as needed labetalol for hypertension. Urinary retention noted. On room air. Complaining of pain in right upper extremity. 07/25 PATIENT TRANSFERRED TO OUR SERVICE TODAY [facility] RN AND PT STATES [place]" VERY CONFUSED 07-26 STILL CONFUSED BUT LESS THAN YESTERDAY DW RN AND PT CAN MOVE TO MED/SURG TELE FLOOR PT AND OT INCREASE ACTIVITY 07-27 much more awake and alert but still confused Wants "thick coffee" Is not on a thickened diet probably meant to say strong coffee Discussed with patient and RN Objective Vitals Vital Signs Date Time Temp Pulse Resp B/P (MAP) Pulse Ox O2 Delivery O2 Flow Rate FiO2 07/27/17 08:00 97.3 82 18 160/94 (116) 92 07/27/17 07:00 20 07/27/17 04:00 Room Air 07/27/17 00:00 Room Air 07/27/17 00:00 97.6 80 18 112/62 (79) 92 07/26/17 21:23 Room Air 07/26/17 21:23 84 07/26/17 20:56 97.8 79 18 143/83 (103) 95 07/26/17 20:30 98.0 83 18 154/85 (108) 95 07/26/17 20:30 95 Room Air 07/26/17 20:00 83 07/26/17 19:00 83 07/26/17 18:01 86 07/26/17 17:01 80 07/26/17 16:00 84 07/26/17 15:43 95 Room Air 07/26/17 15:43 97.0 76 18 169/98 (121) 95 07/26/17 15:00 71 07/26/17 14:00 72 07/26/17 13:01 80 07/26/17 12:00 70 07/26/17 11:01 95 Nasal Cannula 2.00 07/26/17 11:01 97.9 73 18 162/83 (109) 95 07/26/17 11:00 72 07/26/17 10:56 97 Nasal Cannula 2.00 07/26/17 10:00 78 I/O 07/26/17 07/26/17 07/26/17 07/27/17 07/27/17 07/27/17 07:00 15:00 23:00 07:00 15:00 23:00 Intake Total 290 ml 47 ml 480 ml 240 ml Output Total 200 ml Balance 90 ml 47 ml 480 ml 240 ml Intake Oral 240 ml 480 ml 240 ml IV Total 50 ml 47 ml Output Urine Total 200 ml # Voids 4 3 6 # Bowel Movements 1 0 1 Result Diagram: 07/25/17 0807 07/25/17 0807 Other Results Laboratory Tests Test 07/24/17 11:23 07/25/17 08:07 07/27/17 08:30 White Blood Count 16.3 TH/MM3 12.7 TH/MM3 Red Blood Count 3.38 MIL/MM3 3.93 MIL/MM3 Hemoglobin 9.1 GM/DL 10.6 GM/DL Hematocrit 28.0 % 32.8 % Mean Corpuscular Volume 83.0 FL 83.4 FL Mean Corpuscular Hemoglobin 27.0 PG 26.9 PG Mean Corpuscular Hemoglobin Concent 32.6 % 32.2 % Red Cell Distribution Width 19.2 % 19.6 % Platelet Count 300 TH/MM3 354 TH/MM3 Mean Platelet Volume 7.9 FL 7.8 FL Neutrophils (%) (Auto) 86.3 % Lymphocytes (%) (Auto) 7.2 % Monocytes (%) (Auto) 5.6 % Eosinophils (%) (Auto) 0.4 % Basophils (%) (Auto) 0.5 % Neutrophils # (Auto) 14.0 TH/MM3 Lymphocytes # (Auto) 1.2 TH/MM3 Monocytes # (Auto) 0.9 TH/MM3 Eosinophils # (Auto) 0.1 TH/MM3 Basophils # (Auto) 0.1 TH/MM3 CBC Comment DIFF FINAL Differential Comment Hematology Comments Blood Urea Nitrogen 15 MG/DL 12 MG/DL Creatinine 0.49 MG/DL 0.44 MG/DL Random Glucose 80 MG/DL 72 MG/DL Total Protein 5.4 GM/DL Albumin 1.7 GM/DL Calcium Level 7.6 MG/DL 8.0 MG/DL Phosphorus Level 2.6 MG/DL Magnesium Level 1.9 MG/DL Alkaline Phosphatase 112 U/L Aspartate Amino Transf (AST/SGOT) 21 U/L Alanine Aminotransferase (ALT/SGPT) 10 U/L Total Bilirubin 0.3 MG/DL Sodium Level 141 MEQ/L 144 MEQ/L Potassium Level 3.7 MEQ/L 3.9 MEQ/L Chloride Level 112 MEQ/L 113 MEQ/L Carbon Dioxide Level 22.2 MEQ/L 22.3 MEQ/L Anion Gap 7 MEQ/L 9 MEQ/L Estimat Glomerular Filtration Rate 127 ML/MIN 144 ML/MIN Imaging Last Impressions Chest X-Ray 07/24/17 0600 Signed Impressions: Service Date/Time: Monday, July 24, 2017 04:44 - CONCLUSION: 1. Removal of right chest tube without pneumothorax. Exam otherwise stable. Chas Sanches MD Chest CT 07/15/17 0000 Signed Impressions: Service Date/Time: Saturday, July 15, 2017 11:25 - CONCLUSION: 1. There are extensive pleural and parenchymal changes. There are densely consolidated areas cavitation involving the right upper lobe and posterior aspect of the left lower lobe concerning for cavitary areas of pneumonia. 2. There are bilateral pleural effusions. The effusion effusions are small in size. There is considerable consolidated lung in the lung bases bilaterally. 3. Old, healed posterior rib fractures on the left. 4. Small pericardial effusion. Kendall Corona MD Objective Remarks GENERAL: 66-year-old female resting in bed in no acute distress SKIN: Warm and dry. Stage I decubitus ulcer HEAD: Atraumatic. Normocephalic. EYES: Pupils equal and round. No scleral icterus. No injection or drainage. EOMI ENT: No nasal bleeding or discharge. Mucous membranes pink and moist. TONGUE MIDLINE NECK: Trachea midline. No JVD. SUPPLE CARDIOVASCULAR: Regular rate and rhythm. S1, S2 no S3 OR S4. RESPIRATORY: Coarse RHONCHI breath sounds appreciated bilaterally. No wheezing GASTROINTESTINAL: Abdomen soft, non-tender, nondistended. Hepatic and splenic margins not palpable. MUSCULOSKELETAL: Extremities with trace bilateral lower extremity edema. 1+ left upper extremity edema.. NEUROLOGICAL: Awake and alert. No obvious cranial nerve deficits. Motor grossly within normal limits. 4 out of 5 muscle strength in the arms and legs. Normal speech. PSYCHIATRIC: INAppropriate mood and affect; insight and judgment ABnormal. Procedures - s/p right VATS, mini thoracotomy, decortication 07/17 for organizing empyema. cc: Viraj Carpio MD Operative Report Date of Surgery: Jul 17, 2017 Preoperative Diagnosis: Postoperative Diagnosis: Procedure: 1. Right Video Assisted Thoracoscopic Surgery (VATS) 2. Right Posterolateral Muscle Sparing Mini-Thoracotomy 3. Decortication 4. Intercostal Nerve Block Surgeon: Viraj Carpio Bundle Collector(s): Danny Sargent Operation and Findings: PREOPERATIVE DIAGNOSIS 1. Right Organized Empyema 2. Loculated Abscess Cavities 3. Pneumonia 4. Respiratory Failure POSTOPERATIVE DIAGNOSIS same PROCEDURES 1. Right Video Assisted Thoracoscopic Surgery (VATS) 2. Right Posterolateral Muscle Sparing Mini-Thoracotomy 3. Decortication 4. Intercostal Nerve Block SURGEON Viraj Carpio MD Medications and IVs Current Medications Sodium Chloride 1,000 ml @ 1,000 mls/hr Q1H ONCE IV Last administered on 07:05; Start 07/11/17 at 06:45; Stop 07/11/17 at 07:44; Status DC Cefepime HCl 2000 mg/Sodium Chloride 100 ml @ 200 mls/hr ONCE STAT IV ; Start 07/11/17 at 07:17; Stop 07/11/17 at 07:32; Status DC Azithromycin 500 mg/Sodium Chloride 250 ml @ 250 mls/hr ONCE STAT IV ; Start 07/11/17 at 07:17; Stop 07/11/17 at 07:32; Status DC Vancomycin HCl 1000 mg/Sodium Chloride 250 ml @ 250 mls/hr ONCE ONCE IV Last administered on 07/11/17 07:47; Start 07/11/17 at 07:30; Stop 07/11/17 at 08:29; Status DC Levofloxacin/ Dextrose 100 ml @ 100 mls/hr ONCE ONCE IV Last administered on 07/11/17 07:48; Start 07/11/17 at 07:30; Stop 07/11/17 at 08:29; Status DC Piperacillin Sod/ Tazobactam Sod 50 ml @ 100 mls/hr ONCE ONCE IV Last administered on 07/11/17 08:12; Start 07/11/17 at 07:30; Stop 07/11/17 at 07:59; Status DC Sodium Chloride 1,000 ml @ 999 mls/hr BOLUS ONCE IV Last administered on 07:41; Start 07/11/17 at 07:30; Stop 07/11/17 at 08:30; Status DC Propofol 100 ml @ 0 mls/hr TITRATE IV Last administered on 07/21/17 09:34; Start 07/11/17 at 09:00; Stop 07/21/17 at 14:52; Status DC Fentanyl Citrate 250 ml @ 0 mls/hr TITRATE IV Last administered on 07/20/17 13 :23; Start 07/11/17 at 09:00; Stop 07/21/17 at 14:52; Status DC Chlorhexidine Gluconate (Peridex 0.12% Liq) 15 ml BID@08,20 MT Last administered on 07/27/17 08:00; Start 07/11/17 at 20:00 Dextrose (D50w (Vial) Inj) 25 ml UNSCH PRN IV PUSH HYPOGLYCEMIA-SEE COMMENTS; Start 07/11/17 at 09:00 Insulin Human Regular (NovoLIN R SUPPLEMENTAL SCALE) 1 Q6HR SQ Last administered on 07/15/17 12:00; Start 07/11/17 at 12:00; Stop 07/24/17 at 10:12 ; Status DC Albuterol/ Ipratropium (Duoneb Neb) 1 ampule Q6HR NEB INH Last administered on 07/14/17 08:31; Start 07/11/17 at 10:00; Stop 07/14/17 at 16:42; Status DC Albuterol/ Ipratropium (Duoneb Neb) 1 ampule Q2HR NEB PRN INH WHEEZING Last administered on 07/19/17 20:50; Start 07/11/17 at 09:00; Stop 07/23/17 at 14:39 ; Status DC Sodium Chloride 1,000 ml @ 120 mls/hr Q8H20M IV Last administered on 08:31; Start 07/11/17 at 08:48; Stop 07/13/17 at 11:30; Status DC Famotidine (Pepcid Inj) 10 mg Q12HR IV PUSH Last administered on 07/17/17 07: 35; Start 07/11/17 at 10:00; Stop 07/17/17 at 14:53; Status DC Ondansetron HCl (Zofran Inj) 4 mg Q6H PRN IV PUSH NAUSEA OR VOMITING Last administered on 07/26/17 05:26; Start 07/11/17 at 09:00 Miscellaneous Information 1 Q361D XX ; Start 07/11/17 at 09:00 Chlorhexidine Gluconate (Chlorhexidine 2% Cloth) Taper DAILY@04 TOP Last administered on 07/18/17 03:19; Start 07/12/17 at 04:00; Stop 07/08/18 at 03:59 Chlorhexidine Gluconate (Chlorhexidine 2% Cloth) 3 pack UNSCH PRN TOP HYGIENIC CARE; Start 07/11/17 at 09:00 Senna/Docusate Sodium (Pallavi-Colace) 1 tab BID PO Last administered on 08:36; Start 07/11/17 at 10:00 Piperacillin Sod/ Tazobactam Sod 50 ml @ 100 mls/hr Q8H IV Last administered on 07/15/17 00:35; Start 07/11/17 at 17:00; Stop 07/15/17 at 07:21; Status DC Levofloxacin/ Dextrose 150 ml @ 100 mls/hr Q48H IV Last administered on 09:21; Start 07/13/17 at 09:00; Stop 07/20/17 at 09:17; Status DC Pharmacy Profile Note 0 ml @ 0 mls/hr UNSCH OTHER ; Start 07/11/17 at 09:00; Stop 07/15/17 at 07:21; Status DC Etomidate (Amidate Inj) 20 mg ONCE ONCE IV PUSH Last administered on 07/11/17 09:33; Start 07/11/17 at 09:30; Stop 07/11/17 at 09:31; Status DC Etomidate (Amidate Inj) 20 mg STK-MED ONCE .ROUTE ; Start 07/11/17 at 09:28; Stop 07/11/17 at 09:29; Status DC Norepinephrine Bitartrate 250 ml @ 7.5 mls/hr TITRATE PRN IV Maintain MAP > 65 mmHg Last administered on 07/12/17 15:01; Start 07/11/17 at 19:30; Stop 07/13 at 11:30; Status DC Methylprednisolone Sodium Succinate (SoluMEDROL INJ) 60 mg Q12HR IV PUSH Last administered on 07/17/17 07:35; Start 07/11/17 at 21:00; Stop 07/17/17 at 08:34 ; Status DC Heparin Sodium (Porcine) (Heparin Inj) 5,000 units Q8HR SQ Last administered on 07/15/17 06:15; Start 07/11/17 at 22:00; Status Future Hold Sodium Chloride 1,000 ml @ 999 mls/hr Q1H IV Last administered on 07/12/17 03 :19; Start 07/12/17 at 02:15; Stop 07/12/17 at 04:14; Status DC Vancomycin HCl 1000 mg/Sodium Chloride 250 ml @ 250 mls/hr ONCE ONCE IV Last administered on 07/12/17 09:27; Start 07/12/17 at 09:00; Stop 07/12/17 at 09:59 ; Status DC Vancomycin HCl 1000 mg/Sodium Chloride 250 ml @ 250 mls/hr ONCE ONCE IV Last administered on 07/13/17 11:35; Start 07/13/17 at 10:00; Stop 07/13/17 at 10:59 ; Status DC Furosemide (Lasix Inj) 60 mg ONCE ONCE IV PUSH Last administered on 07/13/17 14:20; Start 07/13/17 at 11:30; Stop 07/13/17 at 12:52; Status DC Magnesium Oxide (Mag-Ox) 800 mg UNSCH PRN PO For Magnesium 1.2 - 1.6 mg/dL; Start 07/13/17 at 11:30 Magnesium Sulfate 4 gm/Sodium Chloride 100 ml @ 50 mls/hr UNSCH PRN IV For Magnesium 0.9 - 1.1 mg/dL; Start 07/13/17 at 11:30 Magnesium Sulfate 2 gm/Sodium Chloride 100 ml @ 50 mls/hr UNSCH PRN IV For Magnesium 1.2 - 1.6 mg/dL; Start 07/13/17 at 11:30 Potassium Chloride 100 ml @ 50 mls/hr Q2H PRN IV For Potassium 2.8 - 3.2 mEq/L ; Start 07/13/17 at 11:30 Potassium Chloride 100 ml @ 50 mls/hr Q2H PRN IV For Potassium 3.3 - 3.5 mEq/L ; Start 07/13/17 at 11:30 Potassium Chloride 100 ml @ 50 mls/hr Q2H PRN IV For Potassium 2.8 - 3.2 mEq/L ; Start 07/13/17 at 11:30 Potassium Chloride 100 ml @ 25 mls/hr UNSCH PRN IV For Potassium 3.3 - 3.5 mEq /L; Start 07/13/17 at 11:30 Potassium Phosphate (K-Phos) 2,000 mg Q4H PRN PO For Phosphorus < 2.5 mg/dL; Start 07/13/17 at 11:30 Potassium Phosphate (K-Phos) 2,000 mg UNSCH PRN PO/TUBE SEE LABEL COMMENTS; Start 07/13/17 at 11:30 Potassium Phosphate 30 mmol/ Sodium Chloride 260 ml @ 42 mls/hr UNSCH PRN IV SEE LABEL COMMENTS; Start 07/13/17 at 11:30 Sodium Phosphate 30 mmol/Sodium Chloride 250 ml @ 42 mls/hr UNSCH PRN IV For Phosphorus < 2.5 mg/dL; Start 07/13/17 at 11:30 Vancomycin HCl 1000 mg/Sodium Chloride 250 ml @ 250 mls/hr Q24H IV Last administered on 07/14/17 11:29; Start 07/14/17 at 12:00; Stop 07/15/17 at 07:21 ; Status DC Miscellaneous Information SPECIFIC LAB TO BE DRAWN:VANCO TROUGH DATE TO... ONCE ONCE .XX ; Start 07/15/17 at 11:45; Stop 07/15/17 at 11:46; Status DC Albuterol/ Ipratropium (Duoneb Neb) 1 ampule Q6HR NEB INH Last administered on 07/18/17 14:37; Start 07/14/17 at 22:00; Stop 07/18/17 at 21:59; Status DC Ceftriaxone Sodium 2000 mg/ Sodium Chloride 100 ml @ 200 mls/hr Q24H IV Last administered on 07/17/17 07:35; Start 07/15/17 at 08:00; Stop 07/17/17 at 16:45 ; Status DC Sodium Chloride (NS Flush) 2 ml BID IV FLUSH Last administered on 07/27/17 08: 37; Start 07/16/17 at 09:00 Sodium Chloride (NS Flush) 2 ml UNSCH PRN IV FLUSH FLUSH AFTER USING IV ACCESS Last administered on 07/15/17 20:02; Start 07/15/17 at 13:30 Vancomycin HCl 1000 mg/Sodium Chloride 1,000 ml @ 0 mls/hr [employer] IRRIGATION Last administered on 07/17/17 11:34; Start 07/15/17 at 13:30; Stop 07/22/17 at 13:29; Status DC Vancomycin HCl 1250 mg/Sodium Chloride 262.5 ml @ 262.5 mls/ hr [employer] IV Last administered on 07/17/17 10:10; Start 07/15/17 at 13:30; Stop 07/22/17 at 13:29; Status DC Chlorhexidine Gluconate (Hibiclens 4% Top Soln) 1 applic [employer] TOPICAL ; Start 07/15/17 at 13:30; Stop 07/22/17 at 13:29; Status DC Metoprolol Tartrate (Lopressor Inj) 5 mg STK-MED ONCE .ROUTE ; Start 07/16/17 at 13:00; Stop 07/16/17 at 13:01; Status DC Diltiazem HCl (Cardizem Inj) 15 mg ONCE ONCE IV PUSH Last administered on 07/16 13:26; Start 07/16/17 at 14:00; Stop 07/16/17 at 14:01; Status DC Diltiazem HCl 125 mg/Sodium Chloride 125 ml @ 5 mls/hr TITRATE PRN IV Tachycardia Last administered on 07/16/17 13:27; Start 07/16/17 at 14:00; Stop 07/17/17 at 08:34; Status DC Metoprolol Tartrate (Lopressor Inj) 5 mg ONCE ONCE IV PUSH Last administered on 07/16/17 13:26; Start 07/16/17 at 14:00; Stop 07/16/17 at 14:01; Status DC Potassium Chloride (KCl) 30 meq ONCE ONCE PO Last administered on 07/16/17 13 :25; Start 07/16/17 at 13:15; Stop 07/16/17 at 13:16; Status DC Magnesium Sulfate/ Dextrose 100 ml @ 100 mls/hr ONCE ONCE IV Last administered on 07/16/17 13:26; Start 07/16/17 at 14:00; Stop 07/16/17 at 14:59 ; Status DC Methylprednisolone Sodium Succinate (SoluMEDROL INJ) 30 mg Q12HR IV PUSH Last administered on 07/22/17 09:03; Start 07/17/17 at 21:00; Stop 07/22/17 at 10:46 ; Status DC Heparin Sodium (Porcine) (Heparin Inj) 30,000 units STK-MED ONCE .ROUTE ; Start 07/17/17 at 09:30; Stop 07/17/17 at 09:31; Status DC Bupivacaine Liposome 20 ml/ Dexamethasone Sodium Phosphate 4 mg/Morphine Sulfate 8 mg/ Sodium Chloride 41.8 ml @ 0 mls/hr ONCE ONCE IRRIGATION ; Start 07/17/17 at 09:45; Stop 07/17/17 at 09:46; Status DC Miscellaneous Information (Post-op Orders (for Pharmacy)) STAT ONCE OTHER Last administered on 07/17/17 12:30; Start 07/17/17 at 12:30; Stop 07/17/17 at 13:20; Status DC Vancomycin HCl 1 gm/Sodium Chloride 250 ml @ 250 mls/hr Q12H IV Last administered on 07/18/17 09:14; Start 07/17/17 at 22:00; Stop 07/18/17 at 10:59 ; Status DC Acetaminophen 100 ml @ 400 mls/hr Q6H IV Last administered on 07/18/17 05:14 ; Start 07/17/17 at 12:30; Stop 07/18/17 at 06:44; Status DC Ketorolac Tromethamine (Toradol Inj) 15 mg Q6H IV PUSH Last administered on 09:13; Start 07/17/17 at 13:00; Stop 07/18/17 at 07:01; Status DC Famotidine (Pepcid Inj) 20 mg Q12HR IV PUSH Last administered on 07/24/17 08: 45; Start 07/17/17 at 21:00; Stop 07/24/17 at 10:12; Status DC Cefazolin Sodium/ Dextrose 50 ml @ 100 mls/hr Q8H IV Last administered on 07/27 08:47; Start 07/17/17 at 18:00 Hydromorphone HCl (Dilaudid Pf Inj) 0.5 mg Q4H PRN IV PUSH PAIN Last administered on 07/27/17 05:55; Start 07/18/17 at 15:45 Bumetanide (Bumex Inj) 1 mg ONCE ONCE IV PUSH Last administered on 07/19/17 11:02; Start 07/19/17 at 10:00; Stop 07/19/17 at 10:01; Status DC Albuterol/ Ipratropium (Duoneb Neb) 1 ampule Q4HR NEB NEB Last administered on 07/23/17 11:16; Start 07/19/17 at 12:00; Stop 07/23/17 at 11:59; Status DC Metoprolol Tartrate (Lopressor) 25 mg Q12HR PO Last administered on 07/27/17 08:36; Start 07/21/17 at 13:15 Hydralazine HCl (Apresoline Inj) 10 mg Q6H PRN IV PUSH SYS BP GREATER THAN 160 MMHG Last administered on 07/23/17 12:54; Start 07/21/17 at 13:15; Stop at 10:15; Status DC Labetalol HCl (Trandate Inj) 20 mg Q4H PRN IV SBP > 170 Last administered on 04:28; Start 07/22/17 at 02:30 Methylprednisolone Sodium Succinate (SoluMEDROL INJ) 20 mg Q12HR IV PUSH Last administered on 07/24/17 08:44; Start 07/22/17 at 21:00; Stop 07/24/17 at 10:12 ; Status DC Hydromorphone HCl (Dilaudid Pf Inj) 0.5 mg ONCE ONCE IV PUSH Last administered on 07/22/17 23:03; Start 07/22/17 at 23:00; Stop 07/22/17 at 23:01 ; Status DC Albuterol/ Ipratropium (Duoneb Neb) 1 ampule Q6HR NEB NEB Last administered on 07/27/17 08:07; Start 07/23/17 at 16:00; Stop 07/27/17 at 09:32; Status DC Albuterol Sulfate (Albuterol Neb) 2.5 mg Q2HR NEB PRN NEB DYSPNEA; Start at 14:30 Nifedipine (Procardia) 10 mg Q8HR PO Last administered on 07/24/17 06:44; Start 07/23/17 at 22:00; Stop 07/24/17 at 10:15; Status DC Insulin Human Regular (NovoLIN R SUPPLEMENTAL SCALE) 1 ACHS SQ ; Start 07/24/17 at 12:00 Famotidine (Pepcid) 20 mg BID PO Last administered on 07/27/17 08:36; Start at 21:00 Prednisone (Deltasone) 20 mg DAILY PO Last administered on 07/27/17 08:36; Start 07/25/17 at 09:00 Hydralazine HCl (Apresoline Inj) 10 mg Q2HR PRN IV PUSH SYS BP GREATER THAN 170 MMHG Last administered on 07/26/17 09:07; Start 07/24/17 at 10:15 Nifedipine (Procardia) 20 mg Q8HR PO Last administered on 07/26/17 15:32; Start 07/24/17 at 14:00; Stop 07/26/17 at 22:46; Status DC Hydralazine HCl (Apresoline) 10 mg Q8HR PO Last administered on 07/27/17 05:49 ; Start 07/24/17 at 14:00 Isosorbide Dinitrate (Isordil) 10 mg Q8HR PO Last administered on 07/27/17 05: 49; Start 07/24/17 at 14:00 Nitroglycerin (Nitroglycerin 2% Oint) 2 inch Q6HR PRN TOPICAL SBP>170, DBP>90; Start 07/24/17 at 10:15 Fluconazole (Diflucan) 100 mg Q24H PO Last administered on 07/26/17 15:33; Start 07/24/17 at 15:00; Stop 07/31/17 at 14:59 Nifedipine (Procardia) 20 mg Q8HR PO Last administered on 07/27/17 05:49; Start 07/26/17 at 23:00 Urinary Catheter: No A/P Problem List: (1) Empyema ICD Code: J86.9 - Pyothorax without fistula (2) S/P Right Thoracotomy with Decortication (3) right locualted pleural effusion Assessment and Plan Assessment and Plan Neuro/Psych: Metabolic encephalopathy - resolved - Dilaudid when necessary for pain - Neuro checks per ICU protocol Respiratory: Right sided empyema/eczematous secondary to staph aureus Severe bilateral community-acquired pneumonia, with cavitation Acute hypoxic respiratory failure-resolved COPD exacerbation - s/p right VATS, mini thoracotomy, decortication 07/17 for organizing empyema. Chest tube discontinued 07/22 - CT chest initially revealed cavitating pneumonia involving right upper lobe and left lower lobe - Extubated 07/21/17 at 1500 and tolerating well - CXR: Repeat 07/22 every morning -Continue albuterol/ipratropium aerosols every 6 hours with albuterol aerosols every 2 hours. Dyspnea - On methylprednisolone 20 mg IV every 12 hours. Wean the prednisone 20 no grams by mouth daily today Cardiovascular: Septic shock- resolved. NSTEMI/Type II Demand Ischemia History of hypertension Pulmonary hypertension - Unlikely to be ACS. clinically has sepsis syndrome - On Lopressor 25mg Q12 and restarted Procardia 20 mg every 8 hours. Add hydralazine 10 mg every 8 hours and Isordil 10 mg every 8 hours. On Procardia XL 60 mg daily at home.- Monitor HR and BP keep MAP>65mmHg. IV labetalol and IV hydralazine when necessary for systolic blood pressure more than 160 -Echo 07/16 showed EF 50-55%, no vegetations. Small pericardial effusion. Mild pulmonary hypertension 42 mmHg Renal: Acute Kidney Injury- resolving. - Monitor renal function, I/O's, electrolytes replacement per protocol. FEN/GI: Acute protein calorie malnutrition- severe -Currently on nectar thickened liquids. - Famotidine for GI prophylaxis - Docusate sodium/senna 1 tablet twice a day for bowel regimen ID: Acute Community Acquired Pneumonia with MSSA Empyema Septic Shock- resolved UTI with lactobacillus - Continue cefazolin through 07/31 and switch to oral medication 3 weeks - monitor for signs of infections ( Fever, WBC) - ID-Dr. Luna - Pertinent cultures. sputum 07/11 MSSA , urine 07/11 lactobacillus - urine legionella and pneumococcal ag negative 07/11 - Multiple pleural fluid cultures MSSA Endocrine: Hyperglycemia of Critical Illness -- SSI Heme: Anemia Leukocytosis Monitor CBC, s/p transfusion 1unit PRBC 07/19 CBC today pending MSK: Stage I decubitus ulcer Wound care evaluate and treat and follow recommendations Prophylaxis: GI Prophylaxis Famotidine DVT Prophylaxis -- SCDs SQH Lines: Peripheral IV. NEEDS PT AND OT AND SPEECH THERAPY DW RN AND PT PT IS CONFUSED OK FOR MED/SURG TELE NEAR RN STATION NEEDS SAFE PLACE FOR DISCHARGE DW CASE MANAGEMENT AM LABS Discharge Planning WILL NEED PLACEMENT Gee Orourke DO Jul 27, 2017 09:37
[2017-07-27 10:22] LABS: ALKALINE PHOSPHATASE 112 U/L (45-117); ALT (GPT) 8 U/L (10-53); ANION GAP 10 MEQ/L (5-15); AST (GOT) 16 U/L (15-37); BICARBONATE 21.4 MEQ/L (21.0-32.0); BLOOD UREA NITROGEN 8 MG/DL (7-18); CHLORIDE 112 MEQ/L (98-107); FREE T4 1.42 NG/DL (0.76-1.46); GLOMERULAR FILTRATION RATE 208 ML/MIN (>89); MAGNESIUM 1.8 MG/DL (1.5-2.5); SODIUM (NA) 143 MEQ/L (136-145); TOTAL BILIRUBIN ADULT 0.4 MG/DL (0.2-1.0)
[2017-07-27 10:36] LABS: POTASSIUM 2.9 MEQ/L (3.5-5.1)
--- NOTE | 2017-07-27 11:02 | HHI.IDPN ---
Subjective Subjective Remarks Patient is a 66-year-old female, brought into the hospital for evaluation of respiratory distress. apparently noted increasing shortness of breath. EMS was called, and now she was in respiratory distress, and was intubated. In the ER she was hypotensive, and was given fluid resuscitation and pressors. Patient has remained on the vent. She is afebrile. Her initial WBC was 60, 000. Her creatinine was also elevated. Her chest x-ray showed bilateral infiltrates, and she eventually had placement of a chest tube on the right side yesterday. Fluid analysis is showing empyema. Patient's hemodynamics have improved, and she is off pressors. Her creatinine is also improving. Her WBC is also improving. A sputum culture was done and it has MSSA. Legionella and pneumococcal antigen are negative. Infectious disease consultation has been requested to evaluate the patient. Notes reviewed D/W RN Temps ok Mental status better today Has moist cough Sats ok All C/S with MSSA BP ok Antibiotics Ancef Lines PIV Past Medical History Arthritis Anxiety Hypertension Bronchitis COPD Back pain Ulcers Past Surgical History Hysterectomy Back surgeries TENS unit removed from back Allergies: Coded Allergies: penicillin G (Unverified Allergy, Intermediate, Hives, 07/11/17) Sulfa (Sulfonamide Antibiotics) (Unverified Allergy, Unknown, 07/11/17) Objective . Vital Signs Date Time Temp Pulse Resp B/P (MAP) Pulse Ox O2 Delivery O2 Flow Rate FiO2 07/27/17 08:00 97.3 82 18 160/94 (116) 92 07/27/17 07:00 20 07/27/17 04:00 Room Air 07/27/17 00:00 Room Air 07/27/17 00:00 97.6 80 18 112/62 (79) 92 07/26/17 21:23 Room Air 07/26/17 21:23 84 07/26/17 20:56 97.8 79 18 143/83 (103) 95 07/26/17 20:30 98.0 83 18 154/85 (108) 95 07/26/17 20:30 95 Room Air 07/26/17 20:00 83 07/26/17 19:00 83 07/26/17 18:01 86 07/26/17 17:01 80 07/26/17 16:00 84 07/26/17 15:43 95 Room Air 07/26/17 15:43 97.0 76 18 169/98 (121) 95 07/26/17 15:00 71 07/26/17 14:00 72 07/26/17 13:01 80 07/26/17 12:00 70 07/26/17 11:01 95 Nasal Cannula 2.00 07/26/17 11:01 97.9 73 18 162/83 (109) 95 07/26/17 11:00 72 . Laboratory Tests Test 07/27/17 08:30 White Blood Count 9.4 TH/MM3 Red Blood Count 3.29 MIL/MM3 Hemoglobin 9.0 GM/DL Hematocrit 27.4 % Mean Corpuscular Volume 83.4 FL Mean Corpuscular Hemoglobin 27.3 PG Mean Corpuscular Hemoglobin Concent 32.7 % Red Cell Distribution Width 20.0 % Platelet Count 342 TH/MM3 Mean Platelet Volume 7.2 FL Neutrophils (%) (Auto) 77.2 % Lymphocytes (%) (Auto) 15.1 % Monocytes (%) (Auto) 4.1 % Eosinophils (%) (Auto) 2.8 % Basophils (%) (Auto) 0.8 % Neutrophils # (Auto) 7.2 TH/MM3 Lymphocytes # (Auto) 1.4 TH/MM3 Monocytes # (Auto) 0.4 TH/MM3 Eosinophils # (Auto) 0.3 TH/MM3 Basophils # (Auto) 0.1 TH/MM3 CBC Comment DIFF FINAL Differential Comment Laboratory Tests Test 07/27/17 08:30 Blood Urea Nitrogen 8 MG/DL Creatinine 0.32 MG/DL Random Glucose 71 MG/DL Total Protein 5.7 GM/DL Albumin 2.1 GM/DL Calcium Level 8.0 MG/DL Phosphorus Level 2.0 MG/DL Magnesium Level 1.8 MG/DL Alkaline Phosphatase 112 U/L Aspartate Amino Transf (AST/SGOT) 16 U/L Alanine Aminotransferase (ALT/SGPT) 8 U/L Total Bilirubin 0.4 MG/DL Sodium Level 143 MEQ/L Potassium Level 2.9 MEQ/L Chloride Level 112 MEQ/L Carbon Dioxide Level 21.4 MEQ/L Anion Gap 10 MEQ/L Estimat Glomerular Filtration Rate 208 ML/MIN Free Thyroxine 1.42 NG/DL Thyroid Stimulating Hormone 3rd Gen 2.640 uIU/ML Imaging Chest X-Ray 07/22/17 0000 Signed Impressions: Service Date/Time: Saturday, July 22, 2017 02:51 - CONCLUSION: Unchanged exam. No pneumothorax. Bilateral parenchymal opacities. Cassius Tijerina Jr., MD Chest X-Ray 07/18/17 0000 Signed Impressions: Service Date/Time: Tuesday, July 18, 2017 07:43 - CONCLUSION: 1. Persistent prominent areas of consolidation in the right upper lobe, left lower lung, and to lesser degree right lower lung. The right upper lobe consolidation appears cavitary. 2. New right-sided chest tube. A pneumothorax is not seen. 3. ET tube, NG tube and left subclavian line are well placed. Moustapha Faulkner MD Chest X-Ray 07/16/17 0600 Signed Impressions: Service Date/Time: July 04:31 - CONCLUSION: 1. Bilateral patchy airspace disease with some improved aeration in the bases. 2. Persistent bilateral pleural effusions, right greater than left. Right-sided thoracostomy tube laterally in the lower chest is unchanged. Remaining support tubes are also stable in position. Ken Teran MD Chest CT 07/15/17 0000 Signed Impressions: Service Date/Time: Saturday, July 15, 2017 11:25 - CONCLUSION: 1. There are extensive pleural and parenchymal changes. There are densely consolidated areas cavitation involving the right upper lobe and posterior aspect of the left lower lobe concerning for cavitary areas of pneumonia. 2. There are bilateral pleural effusions. The effusion effusions are small in size. There is considerable consolidated lung in the lung bases bilaterally. 3. Old, healed posterior rib fractures on the left. 4. Small pericardial effusion. Kendall Corona MD Physical Exam GENERAL: awake, not in distress, looks weak SKIN: Cool and dry. Has hypopigmented macules in her UE and LE EYES: [place] conjunctiva. No petechia or hemorrhage. Pupils equal, round and reactive to light. No scleral icterus. No injection or drainage. EARS, NOSE AND THROAT: Nose without bleeding or purulent nasal discharge. NECK: Trachea midline. Supple and not tender, no meningeal signs CARDIOVASCULAR: Distant heart sounds. Regular rate and rhythm. RESPIRATORY: Coarse breath sounds bilaterally, has few rhonchi nicky ABDOMEN: Soft, nondistended, but no guarding appreciated. Bowel sounds present and normoactive. No organomegaly. EXTREMITIES: No clubbing. Has mottling in both feet and hands, cold. Mild pedal edema. NEUROLOGICAL: Awake PSYCHIATRIC: cooperative currently LINE: no evidence of infection Assessment & Plan Remarks IMPRESSION Sepsis with shock on presentation due to CAP, resolved - hemodynamics better, off pressors Community acquired PNA, wih abscess and with empyema - sputum C/S MSSA - fluid C/S with Staph aureus - S/P mini-thoracotomy Leukocytosis, better Renal insufficiency due to sepsis, and hypotension, improving Respiratory failure, tolerating extubation Hx COPD, smoker Candiduria Encephalopathy RECOMMENDATION Continue Ancef Repeat CXR Will decide on duration of abx Continue Diflucan Follow CBC Monitor progress Holly Luna MD Jul 27, 2017 11:02
[2017-07-27] MEDS: POTASSIUM CHLORIDE 10 MEQ CONTROLLED RELEASE TAB PO SCH (12:33)
[2017-07-27] MEDS: POTASSIUM PHOSPHATE MONOBASIC 500 MG TAB PO SCH ×2 (12:34→20:49)
[2017-07-27] MEDS ORDERED: POTASSIUM PHOSPHATE INJ 30 MMOL in SODIUM CHLOR 0.9% 250 ML INJ 250 ML IV ONE (13:00)
--- NOTE | 2017-07-27 13:05 | RADRPT ---
EXAM DATE/TIME: 07/27/2017 11:28 [facility] COMPARISON: CHEST SINGLE AP, July 24, 2017, 4:44. INDICATIONS : Follow up cavitary MEDICAL HISTORY : Cardiovascular disease. Sepsis. Chronic obstructive pulmonary disease. SURGICAL HISTORY : None. ENCOUNTER: Initial ACUITY: 2 weeks PAIN SCORE: Non-responsive. LOCATION: Bilateral chest FINDINGS: Cavitary mass right upper lobe with air-fluid level and thickwalled as well as adjacent pleural thick ening. There is patchy consolidation in the left lower lobe which is improved from before. There is b lunting of the right lateral costophrenic angle and thickening of the pleural stripe laterally. Cardi omegaly is noted. ACDF hardware at the cervical spine. CONCLUSION: Cavitary mass right upper lobe is unchanged. Please see above. Ronaldo Juárez MD on July 27, 2017 at 13:03 Board Certified Radiologist. This report was verified electronically.
[2017-07-27 14:16] LABS: HEMOGLOBIN A1b 1.7 %; HEMOGLOBIN Ao 85.4 %; HEMOGLOBIN LA1C 1.9 %; HEMOGLOBIN P3 5.5 %
[2017-07-27] MEDS: FLUCONAZOLE 100 MG TAB PO SCH (16:10)
[2017-07-28] MEDS: ceFAZolin 2 GM PREMIX 50 ML IV SCH ×3 (01:38→17:04)
[2017-07-28] MEDS: CHLORHEXIDINE GLUCONATE 2 % 1 PACK (2 CLOTHS) TOP SCH (01:38)
[2017-07-28] MEDS: HYDROmorphone HCL PF 1 MG/ML VIAL IV PUSH PRN ×4 (01:39→17:03)
[2017-07-28 04:33] VITALS: BP 158/95; PULSE 67; RESP 18; TEMP 97.8; O2SAT 95
[2017-07-28] MEDS: ISOSORBIDE DINITRATE 10 MG TAB PO SCH ×3 (05:57→23:15)
[2017-07-28] MEDS: NIFEdipine 10 MG CAP PO SCH ×3 (05:57→23:15)
[2017-07-28] MEDS: hydrALAZINE HCL 10 MG TAB PO SCH ×3 (05:57→23:15)
[2017-07-28 08:00] VITALS: BP 150/71; PULSE 74; RESP 18; TEMP 97.3; O2SAT 94
[2017-07-28] MEDS: CHLORHEXIDINE 0.12% (ORAL KIT) 15 ML CUP MT SCH ×2 (08:00→20:00)
[2017-07-28] MEDS: INSULIN NovoLIN REGULAR SUPPLEMENTAL SCALE SQ SCH ×4 (08:00→20:22)
[2017-07-28] MEDS: DOCUSATE SODIUM 50 MG/SENNA 8.6 MG TAB PO SCH ×2 (08:04→20:21)
[2017-07-28] MEDS: POTASSIUM PHOSPHATE MONOBASIC 500 MG TAB PO SCH ×2 (08:04→20:22)
[2017-07-28] MEDS: FAMOTIDINE 20 MG TAB PO SCH ×2 (08:04→20:22)
[2017-07-28] MEDS: predniSONE 20 MG TAB PO SCH (08:04)
[2017-07-28] MEDS: METOPROLOL TARTRATE 25 MG TAB PO SCH ×2 (08:04→20:21)
[2017-07-28] MEDS: POTASSIUM CHLORIDE 10 MEQ CONTROLLED RELEASE TAB PO SCH (08:04)
[2017-07-28 08:27] LABS: AUTOMATED NEUTROPHIL # 8.4 TH/MM3 (1.8-7.7); BASOPHIL # 0.1 TH/MM3 (0-0.2); BASOPHIL % 0.5 % (0.0-2.0); EOSINOPHIL # 0.3 TH/MM3 (0-0.4); EOSINOPHIL % 3.1 % (0.0-4.0); HEMATOCRIT 31.1 % (35.0-46.0); HEMO FLAGS DIFF FINAL; LYMPH % 15.2 % (9.0-44.0); LYMPHOCYTE # 1.7 TH/MM3 (1.0-4.8); MEAN CELL VOLUME 83.4 FL (80.0-100.0); MEAN CORPUSCULAR HEMOGLOBIN 27.4 PG (27.0-34.0); MEAN CORPUSCULAR HGB CONC 32.9 % (32.0-36.0); MONO % 4.7 % (0.0-8.0); NEUT % 76.5 % (16.0-70.0); PLATELET COUNT 318 TH/MM3 (150-450); RED BLOOD COUNT 3.72 MIL/MM3 (4.00-5.30); RED CELL DISTRIBUTION WIDTH 20.2 % (11.6-17.2); WHITE BLOOD COUNT 10.9 TH/MM3 (4.0-11.0)
[2017-07-28] MEDS: SODIUM CHLORIDE 0.9% FLUSH 10 ML FLUSH IV FLUSH SCH ×2 (09:00→20:22)
[2017-07-28 09:20] LABS: ALKALINE PHOSPHATASE 129 U/L (45-117); ALT (GPT) 8 U/L (10-53); ANION GAP 8 MEQ/L (5-15); AST (GOT) 12 U/L (15-37); BICARBONATE 22.6 MEQ/L (21.0-32.0); BLOOD UREA NITROGEN 9 MG/DL (7-18); CHLORIDE 111 MEQ/L (98-107); GLOMERULAR FILTRATION RATE 144 ML/MIN (>89); MAGNESIUM 1.6 MG/DL (1.5-2.5); POTASSIUM 3.9 MEQ/L (3.5-5.1); SODIUM (NA) 142 MEQ/L (136-145); TOTAL BILIRUBIN ADULT 0.4 MG/DL (0.2-1.0)
[2017-07-28 12:00] VITALS: BP 182/99; PULSE 68; RESP 18; TEMP 97.4; O2SAT 97
--- NOTE | 2017-07-28 12:52 | HHI.PR ---
Subjective Remarks 66-year-old female with history of COPD, hypertension, presents to the ER tbrought in by EMS after called stating that his was having respiratory issues. She was found in respiratory distress, GCS 6, and was intubated by EMS for airway protection. They state that she initially sounded like she had rales bilaterally. She is not able to give me any further history. They found that her blood pressure was 70 systolic and started her on IV fluids and Levophed. 07/12: still on vasopressors. weaning fio2. remains in shock. mental status still poor, although now purposeful. renal function slowly improving, although remains severely oliguric. 07/13: clinically starting to improve. off vasopressors. fio2 improving. cultures still no growth to date. renal function also improving. 07/14: Remains intubated sedated, encephalopathic. Failed SBT due to tachypnea. UO 2.3 L in 24 hours. On sedation hold do not follow commands. Get CT chest to evaluate loculated effusion 07/15: R pigtail chest tube placed yesterday and 07/14/17. Fluid had appearance of early empyema (yellow cloudy). Pleural fluid studies shows WBC count of 32, 227 with 93% neutrophils. Fluid LDH is 2587 (serum LDH 143) fluid glucose is 44 (serum 158). CTS and ID consulted 07/16: Remains intubated sedated, on sedation hold patient becomes tachypneic. CTS consulted for right empyema. Patient is scheduled for right video-assisted thoracoscopy, with possible thoracotomy by Dr. Carpio 07/17/17. ID also following. CT chest from yesterday shows right upper lobe lobe and left lower lobe cavitating pneumonia, bilateral small effusions. Remains critically ill but stabilizing 07/17 Patient is sedated and intubated. Afebrile. For right VATS/thoracotomy and pleurodesis today. 07/18 Patient s/p mini thoracotomy, right VATS, decortication yesterday. Remains sedated with Diprivan. Fentanyl and intubated. Afebrile. 07/19 No events overnight. Patient did not tolerate CPAP trials yesterday as she became tachypneic, tachycardic and hypertensive. Sedated with Diprivan and Fentanyl drips. 07/20 Patient remains sedated with Diprivan, fentanyl and intubated. Afebrile. 07/21 No events overnight. Sedated and intubated. Tolerated CPAP for several hrs yesterday. Afebrile. 07/22: Extubated yesterday tolerating well. Failed swallow eval yesterday repeat today. CT surgery planning on chest tube removal today. BP elevated, getting when necessary labetalol and hydralazine IV 07/23: Resting comfortably in no acute distress. On room air. Tolerating nectar thickened diet. Linares placement removed today. Restarting Procardia today 07/24: Receiving as needed labetalol for hypertension. Urinary retention noted. On room air. Complaining of pain in right upper extremity. 07/25 PATIENT TRANSFERRED TO OUR SERVICE TODAY [facility] RN AND PT [place] VERY CONFUSED 07-26 STILL CONFUSED BUT LESS THAN YESTERDAY DW RN AND PT CAN MOVE TO MED/SURG TELE FLOOR PT AND OT INCREASE ACTIVITY 07-27 much more awake and alert but still confused Wants "thick coffee" Is not on a thickened diet probably meant to say strong coffee Discussed with patient and RN 07-28 NOT CONFUSED TODAY STATES LIVES WITH A IN A HOUSE DW RN AND PT Objective Vitals Vital Signs Date Time Temp Pulse Resp B/P (MAP) Pulse Ox O2 Delivery O2 Flow Rate FiO2 07/28/17 12:00 97.4 68 18 182/99 (126) 97 07/28/17 08:30 Room Air 07/28/17 08:00 97.3 74 18 150/71 (97) 94 07/28/17 04:33 97.8 67 18 158/95 (116) 95 07/28/17 04:00 Room Air 07/28/17 00:00 Room Air 07/27/17 23:35 97.1 80 18 0/0 (0) 91 148/88 (108) 07/27/17 21:25 97.4 82 18 186/97 (126) 95 07/27/17 20:39 81 07/27/17 20:00 Room Air 07/27/17 16:00 97.8 83 18 164/88 (113) 97 07/27/17 13:01 18 I/O 07/27/17 07/27/17 07/27/17 07/28/17 07/28/17 07/28/17 07:00 15:00 23:00 07:00 15:00 23:00 Intake Total 240 ml 530 ml 100 ml 460 ml 50 ml Output Total 800 ml 600 ml 600 ml Balance 240 ml -270 ml -500 ml -140 ml 50 ml Intake Oral 240 ml 480 ml 50 ml 200 ml IV Total 50 ml 50 ml 260 ml 50 ml Output Urine Total 800 ml 600 ml 600 ml # Voids 6 2 # Bowel Movements 1 0 Result Diagram: 07/28/17 0704 07/28/17 0704 Other Results Laboratory Tests Test 07/27/17 08:30 07/28/17 07:04 White Blood Count 9.4 TH/MM3 10.9 TH/MM3 Red Blood Count 3.29 MIL/MM3 3.72 MIL/MM3 Hemoglobin 9.0 GM/DL 10.2 GM/DL Hematocrit 27.4 % 31.1 % Mean Corpuscular Volume 83.4 FL 83.4 FL Mean Corpuscular Hemoglobin 27.3 PG 27.4 PG Mean Corpuscular Hemoglobin Concent 32.7 % 32.9 % Red Cell Distribution Width 20.0 % 20.2 % Platelet Count 342 TH/MM3 318 TH/MM3 Mean Platelet Volume 7.2 FL 7.5 FL Neutrophils (%) (Auto) 77.2 % 76.5 % Lymphocytes (%) (Auto) 15.1 % 15.2 % Monocytes (%) (Auto) 4.1 % 4.7 % Eosinophils (%) (Auto) 2.8 % 3.1 % Basophils (%) (Auto) 0.8 % 0.5 % Neutrophils # (Auto) 7.2 TH/MM3 8.4 TH/MM3 Lymphocytes # (Auto) 1.4 TH/MM3 1.7 TH/MM3 Monocytes # (Auto) 0.4 TH/MM3 0.5 TH/MM3 Eosinophils # (Auto) 0.3 TH/MM3 0.3 TH/MM3 Basophils # (Auto) 0.1 TH/MM3 0.1 TH/MM3 CBC Comment DIFF FINAL DIFF FINAL Differential Comment Blood Urea Nitrogen 8 MG/DL 9 MG/DL Creatinine 0.32 MG/DL 0.44 MG/DL Random Glucose 71 MG/DL 80 MG/DL Total Protein 5.7 GM/DL 6.4 GM/DL Albumin 2.1 GM/DL 2.4 GM/DL Calcium Level 8.0 MG/DL 7.9 MG/DL Phosphorus Level 2.0 MG/DL 2.6 MG/DL Magnesium Level 1.8 MG/DL 1.6 MG/DL Alkaline Phosphatase 112 U/L 129 U/L Aspartate Amino Transf (AST/SGOT) 16 U/L 12 U/L Alanine Aminotransferase (ALT/SGPT) 8 U/L 8 U/L Total Bilirubin 0.4 MG/DL 0.4 MG/DL Sodium Level 143 MEQ/L 142 MEQ/L Potassium Level 2.9 MEQ/L 3.9 MEQ/L Chloride Level 112 MEQ/L 111 MEQ/L Carbon Dioxide Level 21.4 MEQ/L 22.6 MEQ/L Anion Gap 10 MEQ/L 8 MEQ/L Estimat Glomerular Filtration Rate 208 ML/MIN 144 ML/MIN Hemoglobin A1c 5.3 % Free Thyroxine 1.42 NG/DL Thyroid Stimulating Hormone 3rd Gen 2.640 uIU/ML Imaging Last Impressions Chest X-Ray 07/27/17 0000 Signed Impressions: Service Date/Time: Thursday, July 27, 2017 11:28 - CONCLUSION: Cavitary mass right upper lobe is unchanged. Please see above. Ronaldo Juárez MD Chest CT 07/15/17 0000 Signed Impressions: Service Date/Time: Saturday, July 15, 2017 11:25 - CONCLUSION: 1. There are extensive pleural and parenchymal changes. There are densely consolidated areas cavitation involving the right upper lobe and posterior aspect of the left lower lobe concerning for cavitary areas of pneumonia. 2. There are bilateral pleural effusions. The effusion effusions are small in size. There is considerable consolidated lung in the lung bases bilaterally. 3. Old, healed posterior rib fractures on the left. 4. Small pericardial effusion. Kendall Corona MD Objective Remarks GENERAL: 66-year-old female resting in bed in no acute distress SKIN: Warm and dry. Stage I decubitus ulcer HEAD: Atraumatic. Normocephalic. EYES: Pupils equal and round. No scleral icterus. No injection or drainage. EOMI ENT: No nasal bleeding or discharge. Mucous membranes pink and moist. TONGUE MIDLINE NECK: Trachea midline. No JVD. SUPPLE CARDIOVASCULAR: Regular rate and rhythm. S1, S2 no S3 OR S4. RESPIRATORY: Coarse RHONCHI breath sounds appreciated bilaterally. No wheezing GASTROINTESTINAL: Abdomen soft, non-tender, nondistended. Hepatic and splenic margins not palpable. MUSCULOSKELETAL: Extremities with trace bilateral lower extremity edema. 1+ left upper extremity edema.. NEUROLOGICAL: Awake and alert. No obvious cranial nerve deficits. Motor grossly within normal limits. 4 out of 5 muscle strength in the arms and legs. Normal speech. PSYCHIATRIC: INAppropriate mood and affect; insight and judgment ABnormal. Procedures - s/p right VATS, mini thoracotomy, decortication 07/17 for organizing empyema. cc: Viraj Carpio MD Operative Report Date of Surgery: Jul 17, 2017 Preoperative Diagnosis: Postoperative Diagnosis: Procedure: 1. Right Video Assisted Thoracoscopic Surgery (VATS) 2. Right Posterolateral Muscle Sparing Mini-Thoracotomy 3. Decortication 4. Intercostal Nerve Block Surgeon: Viraj Carpio Machine Welt Butter(s): Danny Sargent Operation and Findings: PREOPERATIVE DIAGNOSIS 1. Right Organized Empyema 2. Loculated Abscess Cavities 3. Pneumonia 4. Respiratory Failure POSTOPERATIVE DIAGNOSIS same PROCEDURES 1. Right Video Assisted Thoracoscopic Surgery (VATS) 2. Right Posterolateral Muscle Sparing Mini-Thoracotomy 3. Decortication 4. Intercostal Nerve Block SURGEON Viraj Carpio MD Medications and IVs Current Medications Sodium Chloride 1,000 ml @ 1,000 mls/hr Q1H ONCE IV Last administered on 07:05; Start 07/11/17 at 06:45; Stop 07/11/17 at 07:44; Status DC Cefepime HCl 2000 mg/Sodium Chloride 100 ml @ 200 mls/hr ONCE STAT IV ; Start 07/11/17 at 07:17; Stop 07/11/17 at 07:32; Status DC Azithromycin 500 mg/Sodium Chloride 250 ml @ 250 mls/hr ONCE STAT IV ; Start 07/11/17 at 07:17; Stop 07/11/17 at 07:32; Status DC Vancomycin HCl 1000 mg/Sodium Chloride 250 ml @ 250 mls/hr ONCE ONCE IV Last administered on 07/11/17 07:47; Start 07/11/17 at 07:30; Stop 07/11/17 at 08:29; Status DC Levofloxacin/ Dextrose 100 ml @ 100 mls/hr ONCE ONCE IV Last administered on 07/11/17 07:48; Start 07/11/17 at 07:30; Stop 07/11/17 at 08:29; Status DC Piperacillin Sod/ Tazobactam Sod 50 ml @ 100 mls/hr ONCE ONCE IV Last administered on 07/11/17 08:12; Start 07/11/17 at 07:30; Stop 07/11/17 at 07:59; Status DC Sodium Chloride 1,000 ml @ 999 mls/hr BOLUS ONCE IV Last administered on 07:41; Start 07/11/17 at 07:30; Stop 07/11/17 at 08:30; Status DC Propofol 100 ml @ 0 mls/hr TITRATE IV Last administered on 07/21/17 09:34; Start 07/11/17 at 09:00; Stop 07/21/17 at 14:52; Status DC Fentanyl Citrate 250 ml @ 0 mls/hr TITRATE IV Last administered on 07/20/17 13 :23; Start 07/11/17 at 09:00; Stop 07/21/17 at 14:52; Status DC Chlorhexidine Gluconate (Peridex 0.12% Liq) 15 ml BID@08,20 MT Last administered on 07/27/17 08:00; Start 07/11/17 at 20:00 Dextrose (D50w (Vial) Inj) 25 ml UNSCH PRN IV PUSH HYPOGLYCEMIA-SEE COMMENTS; Start 07/11/17 at 09:00 Insulin Human Regular (NovoLIN R SUPPLEMENTAL SCALE) 1 Q6HR SQ Last administered on 07/15/17 12:00; Start 07/11/17 at 12:00; Stop 07/24/17 at 10:12 ; Status DC Albuterol/ Ipratropium (Duoneb Neb) 1 ampule Q6HR NEB INH Last administered on 07/14/17 08:31; Start 07/11/17 at 10:00; Stop 07/14/17 at 16:42; Status DC Albuterol/ Ipratropium (Duoneb Neb) 1 ampule Q2HR NEB PRN INH WHEEZING Last administered on 07/19/17 20:50; Start 07/11/17 at 09:00; Stop 07/23/17 at 14:39 ; Status DC Sodium Chloride 1,000 ml @ 120 mls/hr Q8H20M IV Last administered on 08:31; Start 07/11/17 at 08:48; Stop 07/13/17 at 11:30; Status DC Famotidine (Pepcid Inj) 10 mg Q12HR IV PUSH Last administered on 07/17/17 07: 35; Start 07/11/17 at 10:00; Stop 07/17/17 at 14:53; Status DC Ondansetron HCl (Zofran Inj) 4 mg Q6H PRN IV PUSH NAUSEA OR VOMITING Last administered on 07/26/17 05:26; Start 07/11/17 at 09:00 Miscellaneous Information 1 Q361D XX ; Start 07/11/17 at 09:00 Chlorhexidine Gluconate (Chlorhexidine 2% Cloth) Taper DAILY@04 TOP Last administered on 07/18/17 03:19; Start 07/12/17 at 04:00; Stop 07/08/18 at 03:59 Chlorhexidine Gluconate (Chlorhexidine 2% Cloth) 3 pack UNSCH PRN TOP HYGIENIC CARE; Start 07/11/17 at 09:00 Senna/Docusate Sodium (Pallavi-Colace) 1 tab BID PO Last administered on 20:48; Start 07/11/17 at 10:00 Piperacillin Sod/ Tazobactam Sod 50 ml @ 100 mls/hr Q8H IV Last administered on 07/15/17 00:35; Start 07/11/17 at 17:00; Stop 07/15/17 at 07:21; Status DC Levofloxacin/ Dextrose 150 ml @ 100 mls/hr Q48H IV Last administered on 09:21; Start 07/13/17 at 09:00; Stop 07/20/17 at 09:17; Status DC Pharmacy Profile Note 0 ml @ 0 mls/hr UNSCH OTHER ; Start 07/11/17 at 09:00; Stop 07/15/17 at 07:21; Status DC Etomidate (Amidate Inj) 20 mg ONCE ONCE IV PUSH Last administered on 07/11/17 09:33; Start 07/11/17 at 09:30; Stop 07/11/17 at 09:31; Status DC Etomidate (Amidate Inj) 20 mg STK-MED ONCE .ROUTE ; Start 07/11/17 at 09:28; Stop 07/11/17 at 09:29; Status DC Norepinephrine Bitartrate 250 ml @ 7.5 mls/hr TITRATE PRN IV Maintain MAP > 65 mmHg Last administered on 07/12/17 15:01; Start 07/11/17 at 19:30; Stop 07/13 at 11:30; Status DC Methylprednisolone Sodium Succinate (SoluMEDROL INJ) 60 mg Q12HR IV PUSH Last administered on 07/17/17 07:35; Start 07/11/17 at 21:00; Stop 07/17/17 at 08:34 ; Status DC Heparin Sodium (Porcine) (Heparin Inj) 5,000 units Q8HR SQ Last administered on 07/15/17 06:15; Start 07/11/17 at 22:00; Status Future Hold Sodium Chloride 1,000 ml @ 999 mls/hr Q1H IV Last administered on 07/12/17 03 :19; Start 07/12/17 at 02:15; Stop 07/12/17 at 04:14; Status DC Vancomycin HCl 1000 mg/Sodium Chloride 250 ml @ 250 mls/hr ONCE ONCE IV Last administered on 07/12/17 09:27; Start 07/12/17 at 09:00; Stop 07/12/17 at 09:59 ; Status DC Vancomycin HCl 1000 mg/Sodium Chloride 250 ml @ 250 mls/hr ONCE ONCE IV Last administered on 07/13/17 11:35; Start 07/13/17 at 10:00; Stop 07/13/17 at 10:59 ; Status DC Furosemide (Lasix Inj) 60 mg ONCE ONCE IV PUSH Last administered on 07/13/17 14:20; Start 07/13/17 at 11:30; Stop 07/13/17 at 12:52; Status DC Magnesium Oxide (Mag-Ox) 800 mg UNSCH PRN PO For Magnesium 1.2 - 1.6 mg/dL; Start 07/13/17 at 11:30; Stop 07/27/17 at 13:50; Status DC Magnesium Sulfate 4 gm/Sodium Chloride 100 ml @ 50 mls/hr UNSCH PRN IV For Magnesium 0.9 - 1.1 mg/dL; Start 07/13/17 at 11:30; Stop 07/27/17 at 13:50; Status DC Magnesium Sulfate 2 gm/Sodium Chloride 100 ml @ 50 mls/hr UNSCH PRN IV For Magnesium 1.2 - 1.6 mg/dL; Start 07/13/17 at 11:30; Stop 07/27/17 at 13:50; Status DC Potassium Chloride 100 ml @ 50 mls/hr Q2H PRN IV For Potassium 2.8 - 3.2 mEq/L ; Start 07/13/17 at 11:30; Stop 07/27/17 at 13:50; Status DC Potassium Chloride 100 ml @ 50 mls/hr Q2H PRN IV For Potassium 3.3 - 3.5 mEq/L ; Start 07/13/17 at 11:30; Stop 07/27/17 at 13:50; Status DC Potassium Chloride 100 ml @ 50 mls/hr Q2H PRN IV For Potassium 2.8 - 3.2 mEq/L ; Start 07/13/17 at 11:30; Stop 07/27/17 at 13:50; Status DC Potassium Chloride 100 ml @ 25 mls/hr UNSCH PRN IV For Potassium 3.3 - 3.5 mEq /L; Start 07/13/17 at 11:30; Stop 07/27/17 at 13:50; Status DC Potassium Phosphate (K-Phos) 2,000 mg Q4H PRN PO For Phosphorus < 2.5 mg/dL; Start 07/13/17 at 11:30; Stop 07/27/17 at 13:50; Status DC Potassium Phosphate (K-Phos) 2,000 mg UNSCH PRN PO/TUBE SEE LABEL COMMENTS; Start 07/13/17 at 11:30; Stop 07/27/17 at 13:50; Status DC Potassium Phosphate 30 mmol/ Sodium Chloride 260 ml @ 42 mls/hr UNSCH PRN IV SEE LABEL COMMENTS; Start 07/13/17 at 11:30; Stop 07/27/17 at 13:50; Status DC Sodium Phosphate 30 mmol/Sodium Chloride 250 ml @ 42 mls/hr UNSCH PRN IV For Phosphorus < 2.5 mg/dL; Start 07/13/17 at 11:30; Stop 07/27/17 at 13:50; Status DC Vancomycin HCl 1000 mg/Sodium Chloride 250 ml @ 250 mls/hr Q24H IV Last administered on 07/14/17 11:29; Start 07/14/17 at 12:00; Stop 07/15/17 at 07:21 ; Status DC Miscellaneous Information SPECIFIC LAB TO BE DRAWN:VANCO TROUGH DATE TO... ONCE ONCE .XX ; Start 07/15/17 at 11:45; Stop 07/15/17 at 11:46; Status DC Albuterol/ Ipratropium (Duoneb Neb) 1 ampule Q6HR NEB INH Last administered on 07/18/17 14:37; Start 07/14/17 at 22:00; Stop 07/18/17 at 21:59; Status DC Ceftriaxone Sodium 2000 mg/ Sodium Chloride 100 ml @ 200 mls/hr Q24H IV Last administered on 07/17/17 07:35; Start 07/15/17 at 08:00; Stop 07/17/17 at 16:45 ; Status DC Sodium Chloride (NS Flush) 2 ml BID IV FLUSH Last administered on 07/28/17 09: 00; Start 07/16/17 at 09:00 Sodium Chloride (NS Flush) 2 ml UNSCH PRN IV FLUSH FLUSH AFTER USING IV ACCESS Last administered on 07/15/17 20:02; Start 07/15/17 at 13:30 Vancomycin HCl 1000 mg/Sodium Chloride 1,000 ml @ 0 mls/hr TELECOMMUNICATIONS LINE INSTALLER IRRIGATION Last administered on 07/17/17 11:34; Start 07/15/17 at 13:30; Stop 07/22/17 at 13:29; Status DC Vancomycin HCl 1250 mg/Sodium Chloride 262.5 ml @ 262.5 mls/ hr TELECOMMUNICATIONS LINE INSTALLER IV Last administered on 07/17/17 10:10; Start 07/15/17 at 13:30; Stop 07/22/17 at 13:29; Status DC Chlorhexidine Gluconate (Hibiclens 4% Top Soln) 1 applic TELECOMMUNICATIONS LINE INSTALLER TOPICAL ; Start 07/15/17 at 13:30; Stop 07/22/17 at 13:29; Status DC Metoprolol Tartrate (Lopressor Inj) 5 mg STK-MED ONCE .ROUTE ; Start 07/16/17 at 13:00; Stop 07/16/17 at 13:01; Status DC Diltiazem HCl (Cardizem Inj) 15 mg ONCE ONCE IV PUSH Last administered on 07/16 13:26; Start 07/16/17 at 14:00; Stop 07/16/17 at 14:01; Status DC Diltiazem HCl 125 mg/Sodium Chloride 125 ml @ 5 mls/hr TITRATE PRN IV Tachycardia Last administered on 07/16/17 13:27; Start 07/16/17 at 14:00; Stop 07/17/17 at 08:34; Status DC Metoprolol Tartrate (Lopressor Inj) 5 mg ONCE ONCE IV PUSH Last administered on 07/16/17 13:26; Start 07/16/17 at 14:00; Stop 07/16/17 at 14:01; Status DC Potassium Chloride (KCl) 30 meq ONCE ONCE PO Last administered on 07/16/17 13 :25; Start 07/16/17 at 13:15; Stop 07/16/17 at 13:16; Status DC Magnesium Sulfate/ Dextrose 100 ml @ 100 mls/hr ONCE ONCE IV Last administered on 07/16/17 13:26; Start 07/16/17 at 14:00; Stop 07/16/17 at 14:59 ; Status DC Methylprednisolone Sodium Succinate (SoluMEDROL INJ) 30 mg Q12HR IV PUSH Last administered on 07/22/17 09:03; Start 07/17/17 at 21:00; Stop 07/22/17 at 10:46 ; Status DC Heparin Sodium (Porcine) (Heparin Inj) 30,000 units STK-MED ONCE .ROUTE ; Start 07/17/17 at 09:30; Stop 07/17/17 at 09:31; Status DC Bupivacaine Liposome 20 ml/ Dexamethasone Sodium Phosphate 4 mg/Morphine Sulfate 8 mg/ Sodium Chloride 41.8 ml @ 0 mls/hr ONCE ONCE IRRIGATION ; Start 07/17/17 at 09:45; Stop 07/17/17 at 09:46; Status DC Miscellaneous Information (Post-op Orders (for Pharmacy)) STAT ONCE OTHER Last administered on 07/17/17 12:30; Start 07/17/17 at 12:30; Stop 07/17/17 at 13:20; Status DC Vancomycin HCl 1 gm/Sodium Chloride 250 ml @ 250 mls/hr Q12H IV Last administered on 07/18/17 09:14; Start 07/17/17 at 22:00; Stop 07/18/17 at 10:59 ; Status DC Acetaminophen 100 ml @ 400 mls/hr Q6H IV Last administered on 07/18/17 05:14 ; Start 07/17/17 at 12:30; Stop 07/18/17 at 06:44; Status DC Ketorolac Tromethamine (Toradol Inj) 15 mg Q6H IV PUSH Last administered on 09:13; Start 07/17/17 at 13:00; Stop 07/18/17 at 07:01; Status DC Famotidine (Pepcid Inj) 20 mg Q12HR IV PUSH Last administered on 07/24/17 08: 45; Start 07/17/17 at 21:00; Stop 07/24/17 at 10:12; Status DC Cefazolin Sodium/ Dextrose 50 ml @ 100 mls/hr Q8H IV Last administered on 07/28 08:05; Start 07/17/17 at 18:00 Hydromorphone HCl (Dilaudid Pf Inj) 0.5 mg Q4H PRN IV PUSH PAIN Last administered on 07/28/17 11:40; Start 07/18/17 at 15:45 Bumetanide (Bumex Inj) 1 mg ONCE ONCE IV PUSH Last administered on 07/19/17 11:02; Start 07/19/17 at 10:00; Stop 07/19/17 at 10:01; Status DC Albuterol/ Ipratropium (Duoneb Neb) 1 ampule Q4HR NEB NEB Last administered on 07/23/17 11:16; Start 07/19/17 at 12:00; Stop 07/23/17 at 11:59; Status DC Metoprolol Tartrate (Lopressor) 25 mg Q12HR PO Last administered on 07/28/17 08:04; Start 07/21/17 at 13:15 Hydralazine HCl (Apresoline Inj) 10 mg Q6H PRN IV PUSH SYS BP GREATER THAN 160 MMHG Last administered on 07/23/17 12:54; Start 07/21/17 at 13:15; Stop at 10:15; Status DC Labetalol HCl (Trandate Inj) 20 mg Q4H PRN IV SBP > 170 Last administered on 04:28; Start 07/22/17 at 02:30 Methylprednisolone Sodium Succinate (SoluMEDROL INJ) 20 mg Q12HR IV PUSH Last administered on 07/24/17 08:44; Start 07/22/17 at 21:00; Stop 07/24/17 at 10:12 ; Status DC Hydromorphone HCl (Dilaudid Pf Inj) 0.5 mg ONCE ONCE IV PUSH Last administered on 07/22/17 23:03; Start 07/22/17 at 23:00; Stop 07/22/17 at 23:01 ; Status DC Albuterol/ Ipratropium (Duoneb Neb) 1 ampule Q6HR NEB NEB Last administered on 07/27/17 08:07; Start 07/23/17 at 16:00; Stop 07/27/17 at 09:32; Status DC Albuterol Sulfate (Albuterol Neb) 2.5 mg Q2HR NEB PRN NEB DYSPNEA; Start at 14:30 Nifedipine (Procardia) 10 mg Q8HR PO Last administered on 07/24/17 06:44; Start 07/23/17 at 22:00; Stop 07/24/17 at 10:15; Status DC Insulin Human Regular (NovoLIN R SUPPLEMENTAL SCALE) 1 ACHS SQ ; Start 07/24/17 at 12:00 Famotidine (Pepcid) 20 mg BID PO Last administered on 07/28/17 08:04; Start at 21:00 Prednisone (Deltasone) 20 mg DAILY PO Last administered on 07/28/17 08:04; Start 07/25/17 at 09:00 Hydralazine HCl (Apresoline Inj) 10 mg Q2HR PRN IV PUSH SYS BP GREATER THAN 170 MMHG Last administered on 07/26/17 09:07; Start 07/24/17 at 10:15 Nifedipine (Procardia) 20 mg Q8HR PO Last administered on 07/26/17 15:32; Start 07/24/17 at 14:00; Stop 07/26/17 at 22:46; Status DC Hydralazine HCl (Apresoline) 10 mg Q8HR PO Last administered on 07/28/17 05:57 ; Start 07/24/17 at 14:00 Isosorbide Dinitrate (Isordil) 10 mg Q8HR PO Last administered on 07/28/17 05: 57; Start 07/24/17 at 14:00 Nitroglycerin (Nitroglycerin 2% Oint) 2 inch Q6HR PRN TOPICAL SBP>170, DBP>90; Start 07/24/17 at 10:15 Fluconazole (Diflucan) 100 mg Q24H PO Last administered on 07/27/17 16:10; Start 07/24/17 at 15:00; Stop 07/31/17 at 14:59 Nifedipine (Procardia) 20 mg Q8HR PO Last administered on 07/28/17 05:57; Start 07/26/17 at 23:00 Potassium Phosphate 30 mmol/ Sodium Chloride 260 ml @ 43.333 mls/ hr ONCE ONCE IV Last administered on 07/27/17 16:15; Start 07/27/17 at 13:00; Stop at 18:59; Status DC Potassium Phosphate (K-Phos) 1,000 mg Q12HR PO Last administered on 07/28/17 08:04; Start 07/27/17 at 11:15 Potassium Chloride (KCl) 40 meq DAILY PO Last administered on 07/28/17 08:04; Start 07/27/17 at 11:15 Urinary Catheter: No A/P Problem List: (1) Empyema ICD Code: J86.9 - Pyothorax without fistula (2) S/P Right Thoracotomy with Decortication (3) right locualted pleural effusion Assessment and Plan Assessment and Plan Neuro/Psych: Metabolic encephalopathy - resolved - Dilaudid when necessary for pain - Neuro checks per ICU protocol Respiratory: Right sided empyema/eczematous secondary to staph aureus Severe bilateral community-acquired pneumonia, with cavitation Acute hypoxic respiratory failure-resolved COPD exacerbation - s/p right VATS, mini thoracotomy, decortication 07/17 for organizing empyema. Chest tube discontinued 07/22 - CT chest initially revealed cavitating pneumonia involving right upper lobe and left lower lobe - Extubated 07/21/17 at 1500 and tolerating well - CXR: Repeat 07/22 every morning -Continue albuterol/ipratropium aerosols every 6 hours with albuterol aerosols every 2 hours. Dyspnea - On methylprednisolone 20 mg IV every 12 hours. Wean the prednisone 20 no grams by mouth daily today Cardiovascular: Septic shock- resolved. NSTEMI/Type II Demand Ischemia History of hypertension Pulmonary hypertension - Unlikely to be ACS. clinically has sepsis syndrome - On Lopressor 25mg Q12 and restarted Procardia 20 mg every 8 hours. Add hydralazine 10 mg every 8 hours and Isordil 10 mg every 8 hours. On Procardia XL 60 mg daily at home.- Monitor HR and BP keep MAP>65mmHg. IV labetalol and IV hydralazine when necessary for systolic blood pressure more than 160 -Echo 07/16 showed EF 50-55%, no vegetations. Small pericardial effusion. Mild pulmonary hypertension 42 mmHg Renal: Acute Kidney Injury- resolving. - Monitor renal function, I/O's, electrolytes replacement per protocol. FEN/GI: Acute protein calorie malnutrition- severe -Currently on nectar thickened liquids. - Famotidine for GI prophylaxis - Docusate sodium/senna 1 tablet twice a day for bowel regimen ID: Acute Community Acquired Pneumonia with MSSA Empyema Septic Shock- resolved UTI with lactobacillus - Continue cefazolin through 07/31 and switch to oral medication 3 weeks - monitor for signs of infections ( Fever, WBC) - ID-Dr. Luna - Pertinent cultures. sputum 07/11 MSSA , urine 07/11 lactobacillus - urine legionella and pneumococcal ag negative 07/11 - Multiple pleural fluid cultures MSSA Endocrine: Hyperglycemia of Critical Illness -- SSI Heme: Anemia Leukocytosis Monitor CBC, s/p transfusion 1unit PRBC 07/19 CBC today pending MSK: Stage I decubitus ulcer Wound care evaluate and treat and follow recommendations Prophylaxis: GI Prophylaxis Famotidine DVT Prophylaxis -- SCDs SQH Lines: Peripheral IV. NEEDS PT AND OT AND SPEECH THERAPY DW RN AND PT PT IS CONFUSED OK FOR MED/SURG TELE NEAR RN STATION NEEDS SAFE PLACE FOR DISCHARGE DW CASE MANAGEMENT AM LABS CONTINUE PT 7 DAYS A WEEK CONTINUE OT DW PATIENT AND RN CONTINUE ANTIBIOTICS PER ID Discharge Planning WILL NEED PLACEMENT Gee Orourke DO Jul 28, 2017 12:52
--- NOTE | 2017-07-28 13:20 | HHI.IDPN ---
Subjective Subjective Remarks Patient is a 66-year-old female, brought into the hospital for evaluation of respiratory distress. apparently noted increasing shortness of breath. EMS was called, and now she was in respiratory distress, and was intubated. In the ER she was hypotensive, and was given fluid resuscitation and pressors. Patient has remained on the vent. She is afebrile. Her initial WBC was 60, 000. Her creatinine was also elevated. Her chest x-ray showed bilateral infiltrates, and she eventually had placement of a chest tube on the right side yesterday. Fluid analysis is showing empyema. Patient's hemodynamics have improved, and she is off pressors. Her creatinine is also improving. Her WBC is also improving. A sputum culture was done and it has MSSA. Legionella and pneumococcal antigen are negative. Infectious disease consultation has been requested to evaluate the patient. Notes reviewed D/W RN Temps ok Mental status stable Has moist cough Sats ok All C/S with MSSA Antibiotics Ancef Lines PIV Past Medical History Arthritis Anxiety Hypertension Bronchitis COPD Back pain Ulcers Past Surgical History Hysterectomy Back surgeries TENS unit removed from back Allergies: Coded Allergies: penicillin G (Unverified Allergy, Intermediate, Hives, 07/11/17) Sulfa (Sulfonamide Antibiotics) (Unverified Allergy, Unknown, 07/11/17) Objective . Vital Signs Date Time Temp Pulse Resp B/P (MAP) Pulse Ox O2 Delivery O2 Flow Rate FiO2 07/28/17 12:00 97.4 68 18 182/99 (126) 97 07/28/17 08:30 Room Air 07/28/17 08:00 97.3 74 18 150/71 (97) 94 07/28/17 04:33 97.8 67 18 158/95 (116) 95 07/28/17 04:00 Room Air 07/28/17 00:00 Room Air 07/27/17 23:35 97.1 80 18 0/0 (0) 91 148/88 (108) 07/27/17 21:25 97.4 82 18 186/97 (126) 95 07/27/17 20:39 81 07/27/17 20:00 Room Air 07/27/17 16:00 97.8 83 18 164/88 (113) 97 07/28/17 07/28/17 07/29/17 15:00 23:00 07:00 Intake Total 50 ml Balance 50 ml IV Total 50 ml . Laboratory Tests Test 07/27/17 08:30 07/28/17 07:04 White Blood Count 9.4 TH/MM3 10.9 TH/MM3 Red Blood Count 3.29 MIL/MM3 3.72 MIL/MM3 Hemoglobin 9.0 GM/DL 10.2 GM/DL Hematocrit 27.4 % 31.1 % Mean Corpuscular Volume 83.4 FL 83.4 FL Mean Corpuscular Hemoglobin 27.3 PG 27.4 PG Mean Corpuscular Hemoglobin Concent 32.7 % 32.9 % Red Cell Distribution Width 20.0 % 20.2 % Platelet Count 342 TH/MM3 318 TH/MM3 Mean Platelet Volume 7.2 FL 7.5 FL Neutrophils (%) (Auto) 77.2 % 76.5 % Lymphocytes (%) (Auto) 15.1 % 15.2 % Monocytes (%) (Auto) 4.1 % 4.7 % Eosinophils (%) (Auto) 2.8 % 3.1 % Basophils (%) (Auto) 0.8 % 0.5 % Neutrophils # (Auto) 7.2 TH/MM3 8.4 TH/MM3 Lymphocytes # (Auto) 1.4 TH/MM3 1.7 TH/MM3 Monocytes # (Auto) 0.4 TH/MM3 0.5 TH/MM3 Eosinophils # (Auto) 0.3 TH/MM3 0.3 TH/MM3 Basophils # (Auto) 0.1 TH/MM3 0.1 TH/MM3 CBC Comment DIFF FINAL DIFF FINAL Differential Comment Laboratory Tests Test 07/27/17 08:30 07/28/17 07:04 Blood Urea Nitrogen 8 MG/DL 9 MG/DL Creatinine 0.32 MG/DL 0.44 MG/DL Random Glucose 71 MG/DL 80 MG/DL Total Protein 5.7 GM/DL 6.4 GM/DL Albumin 2.1 GM/DL 2.4 GM/DL Calcium Level 8.0 MG/DL 7.9 MG/DL Phosphorus Level 2.0 MG/DL 2.6 MG/DL Magnesium Level 1.8 MG/DL 1.6 MG/DL Alkaline Phosphatase 112 U/L 129 U/L Aspartate Amino Transf (AST/SGOT) 16 U/L 12 U/L Alanine Aminotransferase (ALT/SGPT) 8 U/L 8 U/L Total Bilirubin 0.4 MG/DL 0.4 MG/DL Sodium Level 143 MEQ/L 142 MEQ/L Potassium Level 2.9 MEQ/L 3.9 MEQ/L Chloride Level 112 MEQ/L 111 MEQ/L Carbon Dioxide Level 21.4 MEQ/L 22.6 MEQ/L Anion Gap 10 MEQ/L 8 MEQ/L Estimat Glomerular Filtration Rate 208 ML/MIN 144 ML/MIN Hemoglobin A1c 5.3 % Free Thyroxine 1.42 NG/DL Thyroid Stimulating Hormone 3rd Gen 2.640 uIU/ML Imaging Chest X-Ray 07/22/17 0000 Signed Impressions: Service Date/Time: Saturday, July 22, 2017 02:51 - CONCLUSION: Unchanged exam. No pneumothorax. Bilateral parenchymal opacities. Cassius Tijerina Jr., MD Chest X-Ray 07/18/17 0000 Signed Impressions: Service Date/Time: Tuesday, July 18, 2017 07:43 - CONCLUSION: 1. Persistent prominent areas of consolidation in the right upper lobe, left lower lung, and to lesser degree right lower lung. The right upper lobe consolidation appears cavitary. 2. New right-sided chest tube. A pneumothorax is not seen. 3. ET tube, NG tube and left subclavian line are well placed. Moustapha Faulkner MD Chest X-Ray 07/16/17 0600 Signed Impressions: Service Date/Time: July 04:31 - CONCLUSION: 1. Bilateral patchy airspace disease with some improved aeration in the bases. 2. Persistent bilateral pleural effusions, right greater than left. Right-sided thoracostomy tube laterally in the lower chest is unchanged. Remaining support tubes are also stable in position. Ken Teran MD Chest CT 07/15/17 0000 Signed Impressions: Service Date/Time: Saturday, July 15, 2017 11:25 - CONCLUSION: 1. There are extensive pleural and parenchymal changes. There are densely consolidated areas cavitation involving the right upper lobe and posterior aspect of the left lower lobe concerning for cavitary areas of pneumonia. 2. There are bilateral pleural effusions. The effusion effusions are small in size. There is considerable consolidated lung in the lung bases bilaterally. 3. Old, healed posterior rib fractures on the left. 4. Small pericardial effusion. Kendall Corona MD Physical Exam GENERAL: awake, not in distress, looks weak SKIN: Cool and dry. Has hypopigmented macules in her UE and LE EYES: [place] conjunctiva. No petechia or hemorrhage. Pupils equal, round and reactive to light. No scleral icterus. No injection or drainage. EARS, NOSE AND THROAT: Nose without bleeding or purulent nasal discharge. NECK: Trachea midline. Supple and not tender, no meningeal signs CARDIOVASCULAR: Distant heart sounds. Regular rate and rhythm. RESPIRATORY: Coarse breath sounds bilaterally, has few rhonchi nicky ABDOMEN: Soft, nondistended, but no guarding appreciated. Bowel sounds present and normoactive. No organomegaly. EXTREMITIES: No clubbing. Has mottling in both feet and hands, cold. Mild pedal edema. NEUROLOGICAL: Awake PSYCHIATRIC: cooperative currently LINE: no evidence of infection Assessment & Plan Remarks IMPRESSION Sepsis with shock on presentation due to CAP, resolved - hemodynamics better, off pressors Community acquired PNA, wih abscess and with empyema - sputum C/S MSSA - fluid C/S with Staph aureus - S/P mini-thoracotomy Leukocytosis, better Renal insufficiency due to sepsis, and hypotension, improving Respiratory failure, tolerating extubation Hx COPD, smoker Candiduria Encephalopathy RECOMMENDATION Continue Ancef CXR stable cavitary lesion Will give total 4 weeks IV Abx, the oral Abx x 2-3 weeks MIdline Arrange for D/C andf get Iv Rocephin until Aug 06 - could do outpatient - then po Keflex 500 QID x 3 weeks Continue Diflucan - 7 days Holly Luna MD Jul 28, 2017 13:20
--- NOTE | 2017-07-28 13:22 | HHI.FF ---
Infusion Therapy Location of Infusion Therapy: Ambulatory Infusion Therapy Order Patient Information Patient Weight 63 kg Diagnosis: Diagnosis Lung abscess, empyema Coded Allergies: penicillin G (Unverified Allergy, Intermediate, Hives, 07/11/17) Sulfa (Sulfonamide Antibiotics) (Unverified Allergy, Unknown, 07/11/17) Administer Medication Ceftriaxone 2 grams IV q 24 hours Stop Treatment: Aug 07, 2017 Additional Information Venous access: Other (Midline) Additional Instructions [x] Peripheral flush and dressing changes per protocol [x] Implanted port and central spot welder line: * Implanted port: 10 ml Normal Saline followed by 5 ml Heparin 100 units/ml Heparin flush after each use and monthly to maintain. [] May leave port accessed during therapy. [] May leave peripheral site accessed for duration of therapy. [x] If patient has SOB or respiratory distress, check oxygen saturation. If less than 90% or clinical signs of respiratory distress, administer oxygen at 2 L/min. via nasal cannula and notify physician. [x] Anaphylaxis/Reaction orders: * Stop infusion. * Keep IV line open with saline flush. * Notify physician. * Monitor vital signs every 15 minutes until symptoms resolve. * Check Oxygen saturation; Oxygen at 2 L/min. via nasal cannula if less than 90% or clinical signs of respiratory distress. * Administer diphenhydramine (Benadryl) 25 mg IV STAT, (unless patient has received as pre-med). May repeat once, if necessary. * Solu-Cortef 250 mg IVP over 30-60 seconds, use 100 mg vials for each dissolution. * Epinephrine (1mg/1 ml) 0.3 mg subcutaneously or IVP now with any signs of respiratory distress. * Check with physician for new additional pre-med orders if patient is re- challenged or re-treated. [x] May remove PICC line when treatment complete, after confirming with Physician. [x] If the patient is admitted to the hospital, the ED, or transferred via [facility] , complete transfer form including medication reconciliation order sheet. Laboratory Tests Weekly Labs: CBC w/diff, Creatinine, LFT's (Hepatic function test) (on ThursdayAug 04) Holly Luna MD Jul 28, 2017 13:22
[2017-07-28] MEDS: FLUCONAZOLE 100 MG TAB PO SCH (14:43)
[2017-07-28 16:00] VITALS: BP 150/83; PULSE 84; RESP 18; TEMP 99; O2SAT 92
[2017-07-28 20:00] VITALS: PULSE 72; PULSE 85; RESP 16; TEMP 97.1; O2SAT 97
[2017-07-28 21:00] VITALS: BP 142/88
[2017-07-29] VITALS (10 sets, daily range): BP systolic 136–177; BP diastolic 84–102; PULSE 63–84; RESP 16–18; TEMP 96.4–97.4; O2SAT 93–99
[2017-07-29] MEDS: CHLORHEXIDINE GLUCONATE 2 % 1 PACK (2 CLOTHS) TOP SCH (02:00)
[2017-07-29] MEDS: ceFAZolin 2 GM PREMIX 50 ML IV SCH ×3 (02:00→17:28)
[2017-07-29] MEDS: NIFEdipine 10 MG CAP PO SCH ×3 (04:45→21:40)
[2017-07-29] MEDS: hydrALAZINE HCL 10 MG TAB PO SCH ×3 (04:45→21:41)
[2017-07-29] MEDS: ISOSORBIDE DINITRATE 10 MG TAB PO SCH ×3 (04:45→21:40)
[2017-07-29] MEDS: INSULIN NovoLIN REGULAR SUPPLEMENTAL SCALE SQ SCH ×4 (07:52→21:48)
[2017-07-29] MEDS: CHLORHEXIDINE 0.12% (ORAL KIT) 15 ML CUP MT SCH ×2 (07:53→20:00)
[2017-07-29] MEDS: DOCUSATE SODIUM 50 MG/SENNA 8.6 MG TAB PO SCH ×2 (07:54→21:39)
[2017-07-29] MEDS: POTASSIUM PHOSPHATE MONOBASIC 500 MG TAB PO SCH ×2 (07:54→21:36)
[2017-07-29] MEDS: FAMOTIDINE 20 MG TAB PO SCH ×2 (07:54→21:36)
[2017-07-29] MEDS: predniSONE 20 MG TAB PO SCH (07:54)
[2017-07-29] MEDS: POTASSIUM CHLORIDE 10 MEQ CONTROLLED RELEASE TAB PO SCH (07:54)
[2017-07-29] MEDS: METOPROLOL TARTRATE 25 MG TAB PO SCH ×2 (07:54→21:36)
[2017-07-29] MEDS: SODIUM CHLORIDE 0.9% FLUSH 10 ML FLUSH IV FLUSH SCH ×2 (07:54→21:36)
--- NOTE | 2017-07-29 09:16 | HHI.IDPN ---
Subjective Subjective Remarks Patient is a 66-year-old female, brought into the hospital for evaluation of respiratory distress. apparently noted increasing shortness of breath. EMS was called, and now she was in respiratory distress, and was intubated. In the ER she was hypotensive, and was given fluid resuscitation and pressors. Patient has remained on the vent. She is afebrile. Her initial WBC was 60, 000. Her creatinine was also elevated. Her chest x-ray showed bilateral infiltrates, and she eventually had placement of a chest tube on the right side yesterday. Fluid analysis is showing empyema. Patient's hemodynamics have improved, and she is off pressors. Her creatinine is also improving. Her WBC is also improving. A sputum culture was done and it has MSSA. Legionella and pneumococcal antigen are negative. Infectious disease consultation has been requested to evaluate the patient. Notes reviewed D/W RN Temps ok Confused this morning Taking off her gown Has loose stool Sats ok All C/S with MSSA Antibiotics Ancef Lines PIV Past Medical History Arthritis Anxiety Hypertension Bronchitis COPD Back pain Ulcers Past Surgical History Hysterectomy Back surgeries TENS unit removed from back Allergies: Coded Allergies: penicillin G (Unverified Allergy, Intermediate, Hives, 07/11/17) Sulfa (Sulfonamide Antibiotics) (Unverified Allergy, Unknown, 07/11/17) Objective . Vital Signs Date Time Temp Pulse Resp B/P (MAP) Pulse Ox O2 Delivery O2 Flow Rate FiO2 07/29/17 08:00 97.4 84 18 136/88 (104) 96 07/29/17 05:30 142/84 (103) 07/29/17 04:54 148/90 (109) 07/29/17 04:30 96.4 70 18 174/94 (120) 99 07/29/17 04:00 96.4 70 18 99 07/28/17 21:00 142/88 (106) 07/28/17 20:00 97.1 72 16 97 07/28/17 20:00 85 07/28/17 20:00 Room Air 07/28/17 16:00 99.0 84 18 150/83 (105) 92 07/28/17 12:00 97.4 68 18 182/99 (126) 97 . Laboratory Tests Test 07/28/17 07:04 White Blood Count 10.9 TH/MM3 Red Blood Count 3.72 MIL/MM3 Hemoglobin 10.2 GM/DL Hematocrit 31.1 % Mean Corpuscular Volume 83.4 FL Mean Corpuscular Hemoglobin 27.4 PG Mean Corpuscular Hemoglobin Concent 32.9 % Red Cell Distribution Width 20.2 % Platelet Count 318 TH/MM3 Mean Platelet Volume 7.5 FL Neutrophils (%) (Auto) 76.5 % Lymphocytes (%) (Auto) 15.2 % Monocytes (%) (Auto) 4.7 % Eosinophils (%) (Auto) 3.1 % Basophils (%) (Auto) 0.5 % Neutrophils # (Auto) 8.4 TH/MM3 Lymphocytes # (Auto) 1.7 TH/MM3 Monocytes # (Auto) 0.5 TH/MM3 Eosinophils # (Auto) 0.3 TH/MM3 Basophils # (Auto) 0.1 TH/MM3 CBC Comment DIFF FINAL Differential Comment Laboratory Tests Test 07/28/17 07:04 Blood Urea Nitrogen 9 MG/DL Creatinine 0.44 MG/DL Random Glucose 80 MG/DL Total Protein 6.4 GM/DL Albumin 2.4 GM/DL Calcium Level 7.9 MG/DL Phosphorus Level 2.6 MG/DL Magnesium Level 1.6 MG/DL Alkaline Phosphatase 129 U/L Aspartate Amino Transf (AST/SGOT) 12 U/L Alanine Aminotransferase (ALT/SGPT) 8 U/L Total Bilirubin 0.4 MG/DL Sodium Level 142 MEQ/L Potassium Level 3.9 MEQ/L Chloride Level 111 MEQ/L Carbon Dioxide Level 22.6 MEQ/L Anion Gap 8 MEQ/L Estimat Glomerular Filtration Rate 144 ML/MIN Imaging Chest X-Ray 07/22/17 0000 Signed Impressions: Service Date/Time: Saturday, July 22, 2017 02:51 - CONCLUSION: Unchanged exam. No pneumothorax. Bilateral parenchymal opacities. Cassius Tijerina Jr., MD Chest X-Ray 07/18/17 0000 Signed Impressions: Service Date/Time: Tuesday, July 18, 2017 07:43 - CONCLUSION: 1. Persistent prominent areas of consolidation in the right upper lobe, left lower lung, and to lesser degree right lower lung. The right upper lobe consolidation appears cavitary. 2. New right-sided chest tube. A pneumothorax is not seen. 3. ET tube, NG tube and left subclavian line are well placed. Moustapha Faulkner MD Chest X-Ray 07/16/17 0600 Signed Impressions: Service Date/Time: July 04:31 - CONCLUSION: 1. Bilateral patchy airspace disease with some improved aeration in the bases. 2. Persistent bilateral pleural effusions, right greater than left. Right-sided thoracostomy tube laterally in the lower chest is unchanged. Remaining support tubes are also stable in position. Ken Teran MD Chest CT 07/15/17 0000 Signed Impressions: Service Date/Time: Saturday, July 15, 2017 11:25 - CONCLUSION: 1. There are extensive pleural and parenchymal changes. There are densely consolidated areas cavitation involving the right upper lobe and posterior aspect of the left lower lobe concerning for cavitary areas of pneumonia. 2. There are bilateral pleural effusions. The effusion effusions are small in size. There is considerable consolidated lung in the lung bases bilaterally. 3. Old, healed posterior rib fractures on the left. 4. Small pericardial effusion. Kendall Corona MD Physical Exam GENERAL: awake, not in distress, looks weak SKIN: Cool and dry. Has hypopigmented macules in her UE and LE. Still mottles EYES: [place] conjunctiva. No petechia or hemorrhage. Pupils equal, round and reactive to light. No scleral icterus. No injection or drainage. EARS, NOSE AND THROAT: Nose without bleeding or purulent nasal discharge. NECK: Trachea midline. Supple and not tender, no meningeal signs CARDIOVASCULAR: Distant heart sounds. Regular rate and rhythm. RESPIRATORY: Coarse breath sounds bilaterally, has few rhonchi nicky ABDOMEN: Soft, nondistended, but no guarding appreciated. Bowel sounds present and normoactive. No organomegaly. EXTREMITIES: No clubbing. Has mottling in both feet and hands, cold. Mild pedal edema. NEUROLOGICAL: Awake PSYCHIATRIC: cooperative currently LINE: no evidence of infection Assessment & Plan Remarks IMPRESSION Sepsis with shock on presentation due to CAP, resolved - hemodynamics better, off pressors Community acquired PNA, wih abscess and with empyema - sputum C/S MSSA - fluid C/S with Staph aureus - S/P mini-thoracotomy Leukocytosis, better Renal insufficiency due to sepsis, and hypotension, improving Respiratory failure, tolerating extubation Hx COPD, smoker Candiduria Encephalopathy Diarrhea, R/O C diff RECOMMENDATION Continue Ancef CXR stable cavitary lesion Will give total 4 weeks IV Abx, the oral Abx x 2-3 weeks MIdline Arrange for D/C and get Iv Rocephin until Aug 06 - could do outpatient - then po Keflex 500 QID x 3 weeks Continue Diflucan - 7 days Check stool for C diff Add Lactinex CM working on D/C D/W Holly Cheatham MD Jul 29, 2017 09:16
--- NOTE | 2017-07-29 12:12 | HHI.PR ---
Subjective Remarks 66-year-old female with history of COPD, hypertension, presents to the ER tbrought in by EMS after called stating that his was having respiratory issues. She was found in respiratory distress, GCS 6, and was intubated by EMS for airway protection. They state that she initially sounded like she had rales bilaterally. She is not able to give me any further history. They found that her blood pressure was 70 systolic and started her on IV fluids and Levophed. 07/12: still on vasopressors. weaning fio2. remains in shock. mental status still poor, although now purposeful. renal function slowly improving, although remains severely oliguric. 07/13: clinically starting to improve. off vasopressors. fio2 improving. cultures still no growth to date. renal function also improving. 07/14: Remains intubated sedated, encephalopathic. Failed SBT due to tachypnea. UO 2.3 L in 24 hours. On sedation hold do not follow commands. Get CT chest to evaluate loculated effusion 07/15: R pigtail chest tube placed yesterday and 07/14/17. Fluid had appearance of early empyema (yellow cloudy). Pleural fluid studies shows WBC count of 32, 227 with 93% neutrophils. Fluid LDH is 2587 (serum LDH 143) fluid glucose is 44 (serum 158). CTS and ID consulted 07/16: Remains intubated sedated, on sedation hold patient becomes tachypneic. CTS consulted for right empyema. Patient is scheduled for right video-assisted thoracoscopy, with possible thoracotomy by Dr. Carpio 07/17/17. ID also following. CT chest from yesterday shows right upper lobe lobe and left lower lobe cavitating pneumonia, bilateral small effusions. Remains critically ill but stabilizing 07/17 Patient is sedated and intubated. Afebrile. For right VATS/thoracotomy and pleurodesis today. 07/18 Patient s/p mini thoracotomy, right VATS, decortication yesterday. Remains sedated with Diprivan. Fentanyl and intubated. Afebrile. 07/19 No events overnight. Patient did not tolerate CPAP trials yesterday as she became tachypneic, tachycardic and hypertensive. Sedated with Diprivan and Fentanyl drips. 07/20 Patient remains sedated with Diprivan, fentanyl and intubated. Afebrile. 07/21 No events overnight. Sedated and intubated. Tolerated CPAP for several hrs yesterday. Afebrile. 07/22: Extubated yesterday tolerating well. Failed swallow eval yesterday repeat today. CT surgery planning on chest tube removal today. BP elevated, getting when necessary labetalol and hydralazine IV 07/23: Resting comfortably in no acute distress. On room air. Tolerating nectar thickened diet. Linares placement removed today. Restarting Procardia today 07/24: Receiving as needed labetalol for hypertension. Urinary retention noted. On room air. Complaining of pain in right upper extremity. 07/25 PATIENT TRANSFERRED TO OUR SERVICE TODAY [facility] RN AND PT [place] VERY CONFUSED 07-26 STILL CONFUSED BUT LESS THAN YESTERDAY DW RN AND PT CAN MOVE TO MED/SURG TELE FLOOR PT AND OT INCREASE ACTIVITY 07-27 much more awake and alert but still confused Wants "thick coffee" Is not on a thickened diet probably meant to say strong coffee Discussed with patient and RN 07-28 NOT CONFUSED TODAY STATES LIVES WITH A IN A HOUSE DW RN AND PT 07-29 HAD MIDLINE PLACED TODAY IS NOT AMBULATORY AT THIS TIME NEEDS TO WORK WITH PT AND OT Objective Vitals Vital Signs Date Time Temp Pulse Resp B/P (MAP) Pulse Ox O2 Delivery O2 Flow Rate FiO2 07/29/17 08:40 Room Air 07/29/17 08:00 97.4 84 18 136/88 (104) 96 07/29/17 05:30 142/84 (103) 07/29/17 04:54 148/90 (109) 07/29/17 04:30 96.4 70 18 174/94 (120) 99 07/29/17 04:00 96.4 70 18 99 07/28/17 21:00 142/88 (106) 07/28/17 20:00 97.1 72 16 97 07/28/17 20:00 85 07/28/17 20:00 Room Air 07/28/17 16:00 99.0 84 18 150/83 (105) 92 I/O 07/28/17 07/28/17 07/28/17 07/29/17 07/29/17 07/29/17 07:00 15:00 23:00 07:00 15:00 23:00 Intake Total 460 ml 50 ml 770 ml Output Total 600 ml Balance -140 ml 50 ml 770 ml Intake Oral 200 ml 720 ml IV Total 260 ml 50 ml 50 ml Output Urine Total 600 ml # Voids 3 # Bowel Movements 0 1 2 Result Diagram: 07/28/17 0704 07/28/17 0704 Other Results Laboratory Tests Test 07/27/17 08:30 07/28/17 07:04 White Blood Count 9.4 TH/MM3 10.9 TH/MM3 Red Blood Count 3.29 MIL/MM3 3.72 MIL/MM3 Hemoglobin 9.0 GM/DL 10.2 GM/DL Hematocrit 27.4 % 31.1 % Mean Corpuscular Volume 83.4 FL 83.4 FL Mean Corpuscular Hemoglobin 27.3 PG 27.4 PG Mean Corpuscular Hemoglobin Concent 32.7 % 32.9 % Red Cell Distribution Width 20.0 % 20.2 % Platelet Count 342 TH/MM3 318 TH/MM3 Mean Platelet Volume 7.2 FL 7.5 FL Neutrophils (%) (Auto) 77.2 % 76.5 % Lymphocytes (%) (Auto) 15.1 % 15.2 % Monocytes (%) (Auto) 4.1 % 4.7 % Eosinophils (%) (Auto) 2.8 % 3.1 % Basophils (%) (Auto) 0.8 % 0.5 % Neutrophils # (Auto) 7.2 TH/MM3 8.4 TH/MM3 Lymphocytes # (Auto) 1.4 TH/MM3 1.7 TH/MM3 Monocytes # (Auto) 0.4 TH/MM3 0.5 TH/MM3 Eosinophils # (Auto) 0.3 TH/MM3 0.3 TH/MM3 Basophils # (Auto) 0.1 TH/MM3 0.1 TH/MM3 CBC Comment DIFF FINAL DIFF FINAL Differential Comment Blood Urea Nitrogen 8 MG/DL 9 MG/DL Creatinine 0.32 MG/DL 0.44 MG/DL Random Glucose 71 MG/DL 80 MG/DL Total Protein 5.7 GM/DL 6.4 GM/DL Albumin 2.1 GM/DL 2.4 GM/DL Calcium Level 8.0 MG/DL 7.9 MG/DL Phosphorus Level 2.0 MG/DL 2.6 MG/DL Magnesium Level 1.8 MG/DL 1.6 MG/DL Alkaline Phosphatase 112 U/L 129 U/L Aspartate Amino Transf (AST/SGOT) 16 U/L 12 U/L Alanine Aminotransferase (ALT/SGPT) 8 U/L 8 U/L Total Bilirubin 0.4 MG/DL 0.4 MG/DL Sodium Level 143 MEQ/L 142 MEQ/L Potassium Level 2.9 MEQ/L 3.9 MEQ/L Chloride Level 112 MEQ/L 111 MEQ/L Carbon Dioxide Level 21.4 MEQ/L 22.6 MEQ/L Anion Gap 10 MEQ/L 8 MEQ/L Estimat Glomerular Filtration Rate 208 ML/MIN 144 ML/MIN Hemoglobin A1c 5.3 % Free Thyroxine 1.42 NG/DL Thyroid Stimulating Hormone 3rd Gen 2.640 uIU/ML Imaging Last Impressions Chest X-Ray 07/27/17 0000 Signed Impressions: Service Date/Time: Thursday, July 27, 2017 11:28 - CONCLUSION: Cavitary mass right upper lobe is unchanged. Please see above. Ronaldo Juárez MD Chest CT 07/15/17 0000 Signed Impressions: Service Date/Time: Saturday, July 15, 2017 11:25 - CONCLUSION: 1. There are extensive pleural and parenchymal changes. There are densely consolidated areas cavitation involving the right upper lobe and posterior aspect of the left lower lobe concerning for cavitary areas of pneumonia. 2. There are bilateral pleural effusions. The effusion effusions are small in size. There is considerable consolidated lung in the lung bases bilaterally. 3. Old, healed posterior rib fractures on the left. 4. Small pericardial effusion. Kendall Corona MD Objective Remarks GENERAL: 66-year-old female resting in bed in no acute distress SKIN: Warm and dry. Stage I decubitus ulcer HEAD: Atraumatic. Normocephalic. EYES: Pupils equal and round. No scleral icterus. No injection or drainage. EOMI ENT: No nasal bleeding or discharge. Mucous membranes pink and moist. TONGUE MIDLINE NECK: Trachea midline. No JVD. SUPPLE CARDIOVASCULAR: Regular rate and rhythm. S1, S2 no S3 OR S4. RESPIRATORY: Coarse RHONCHI breath sounds appreciated bilaterally. No wheezing GASTROINTESTINAL: Abdomen soft, non-tender, nondistended. Hepatic and splenic margins not palpable. MUSCULOSKELETAL: Extremities with trace bilateral lower extremity edema. 1+ left upper extremity edema.. NEUROLOGICAL: Awake and alert. No obvious cranial nerve deficits. Motor grossly within normal limits. 4 out of 5 muscle strength in the arms and legs. Normal speech. PSYCHIATRIC: INAppropriate mood and affect; insight and judgment ABnormal. Procedures - s/p right VATS, mini thoracotomy, decortication 07/17 for organizing empyema. cc: Viraj Carpio MD Operative Report Date of Surgery: Jul 17, 2017 Preoperative Diagnosis: Postoperative Diagnosis: Procedure: 1. Right Video Assisted Thoracoscopic Surgery (VATS) 2. Right Posterolateral Muscle Sparing Mini-Thoracotomy 3. Decortication 4. Intercostal Nerve Block Surgeon: Viraj Carpio Demand Generation Manager(s): Danny Sargent Operation and Findings: PREOPERATIVE DIAGNOSIS 1. Right Organized Empyema 2. Loculated Abscess Cavities 3. Pneumonia 4. Respiratory Failure POSTOPERATIVE DIAGNOSIS same PROCEDURES 1. Right Video Assisted Thoracoscopic Surgery (VATS) 2. Right Posterolateral Muscle Sparing Mini-Thoracotomy 3. Decortication 4. Intercostal Nerve Block SURGEON Viraj Carpio MD Medications and IVs Current Medications Sodium Chloride 1,000 ml @ 1,000 mls/hr Q1H ONCE IV Last administered on 07:05; Start 07/11/17 at 06:45; Stop 07/11/17 at 07:44; Status DC Cefepime HCl 2000 mg/Sodium Chloride 100 ml @ 200 mls/hr ONCE STAT IV ; Start 07/11/17 at 07:17; Stop 07/11/17 at 07:32; Status DC Azithromycin 500 mg/Sodium Chloride 250 ml @ 250 mls/hr ONCE STAT IV ; Start 07/11/17 at 07:17; Stop 07/11/17 at 07:32; Status DC Vancomycin HCl 1000 mg/Sodium Chloride 250 ml @ 250 mls/hr ONCE ONCE IV Last administered on 07/11/17 07:47; Start 07/11/17 at 07:30; Stop 07/11/17 at 08:29; Status DC Levofloxacin/ Dextrose 100 ml @ 100 mls/hr ONCE ONCE IV Last administered on 07/11/17 07:48; Start 07/11/17 at 07:30; Stop 07/11/17 at 08:29; Status DC Piperacillin Sod/ Tazobactam Sod 50 ml @ 100 mls/hr ONCE ONCE IV Last administered on 07/11/17 08:12; Start 07/11/17 at 07:30; Stop 07/11/17 at 07:59; Status DC Sodium Chloride 1,000 ml @ 999 mls/hr BOLUS ONCE IV Last administered on 07:41; Start 07/11/17 at 07:30; Stop 07/11/17 at 08:30; Status DC Propofol 100 ml @ 0 mls/hr TITRATE IV Last administered on 07/21/17 09:34; Start 07/11/17 at 09:00; Stop 07/21/17 at 14:52; Status DC Fentanyl Citrate 250 ml @ 0 mls/hr TITRATE IV Last administered on 07/20/17 13 :23; Start 07/11/17 at 09:00; Stop 07/21/17 at 14:52; Status DC Chlorhexidine Gluconate (Peridex 0.12% Liq) 15 ml BID@08,20 MT Last administered on 07/27/17 08:00; Start 07/11/17 at 20:00 Dextrose (D50w (Vial) Inj) 25 ml UNSCH PRN IV PUSH HYPOGLYCEMIA-SEE COMMENTS; Start 07/11/17 at 09:00 Insulin Human Regular (NovoLIN R SUPPLEMENTAL SCALE) 1 Q6HR SQ Last administered on 07/15/17 12:00; Start 07/11/17 at 12:00; Stop 07/24/17 at 10:12 ; Status DC Albuterol/ Ipratropium (Duoneb Neb) 1 ampule Q6HR NEB INH Last administered on 07/14/17 08:31; Start 07/11/17 at 10:00; Stop 07/14/17 at 16:42; Status DC Albuterol/ Ipratropium (Duoneb Neb) 1 ampule Q2HR NEB PRN INH WHEEZING Last administered on 07/19/17 20:50; Start 07/11/17 at 09:00; Stop 07/23/17 at 14:39 ; Status DC Sodium Chloride 1,000 ml @ 120 mls/hr Q8H20M IV Last administered on 08:31; Start 07/11/17 at 08:48; Stop 07/13/17 at 11:30; Status DC Famotidine (Pepcid Inj) 10 mg Q12HR IV PUSH Last administered on 07/17/17 07: 35; Start 07/11/17 at 10:00; Stop 07/17/17 at 14:53; Status DC Ondansetron HCl (Zofran Inj) 4 mg Q6H PRN IV PUSH NAUSEA OR VOMITING Last administered on 07/26/17 05:26; Start 07/11/17 at 09:00 Miscellaneous Information 1 Q361D XX ; Start 07/11/17 at 09:00 Chlorhexidine Gluconate (Chlorhexidine 2% Cloth) Taper DAILY@04 TOP Last administered on 07/18/17 03:19; Start 07/12/17 at 04:00; Stop 07/08/18 at 03:59 Chlorhexidine Gluconate (Chlorhexidine 2% Cloth) 3 pack UNSCH PRN TOP HYGIENIC CARE; Start 07/11/17 at 09:00 Senna/Docusate Sodium (Pallavi-Colace) 1 tab BID PO Last administered on 20:21; Start 07/11/17 at 10:00 Piperacillin Sod/ Tazobactam Sod 50 ml @ 100 mls/hr Q8H IV Last administered on 07/15/17 00:35; Start 07/11/17 at 17:00; Stop 07/15/17 at 07:21; Status DC Levofloxacin/ Dextrose 150 ml @ 100 mls/hr Q48H IV Last administered on 09:21; Start 07/13/17 at 09:00; Stop 07/20/17 at 09:17; Status DC Pharmacy Profile Note 0 ml @ 0 mls/hr UNSCH OTHER ; Start 07/11/17 at 09:00; Stop 07/15/17 at 07:21; Status DC Etomidate (Amidate Inj) 20 mg ONCE ONCE IV PUSH Last administered on 07/11/17 09:33; Start 07/11/17 at 09:30; Stop 07/11/17 at 09:31; Status DC Etomidate (Amidate Inj) 20 mg STK-MED ONCE .ROUTE ; Start 07/11/17 at 09:28; Stop 07/11/17 at 09:29; Status DC Norepinephrine Bitartrate 250 ml @ 7.5 mls/hr TITRATE PRN IV Maintain MAP > 65 mmHg Last administered on 07/12/17 15:01; Start 07/11/17 at 19:30; Stop 07/13 at 11:30; Status DC Methylprednisolone Sodium Succinate (SoluMEDROL INJ) 60 mg Q12HR IV PUSH Last administered on 07/17/17 07:35; Start 07/11/17 at 21:00; Stop 07/17/17 at 08:34 ; Status DC Heparin Sodium (Porcine) (Heparin Inj) 5,000 units Q8HR SQ Last administered on 07/15/17 06:15; Start 07/11/17 at 22:00; Status Future Hold Sodium Chloride 1,000 ml @ 999 mls/hr Q1H IV Last administered on 07/12/17 03 :19; Start 07/12/17 at 02:15; Stop 07/12/17 at 04:14; Status DC Vancomycin HCl 1000 mg/Sodium Chloride 250 ml @ 250 mls/hr ONCE ONCE IV Last administered on 07/12/17 09:27; Start 07/12/17 at 09:00; Stop 07/12/17 at 09:59 ; Status DC Vancomycin HCl 1000 mg/Sodium Chloride 250 ml @ 250 mls/hr ONCE ONCE IV Last administered on 07/13/17 11:35; Start 07/13/17 at 10:00; Stop 07/13/17 at 10:59 ; Status DC Furosemide (Lasix Inj) 60 mg ONCE ONCE IV PUSH Last administered on 07/13/17 14:20; Start 07/13/17 at 11:30; Stop 07/13/17 at 12:52; Status DC Magnesium Oxide (Mag-Ox) 800 mg UNSCH PRN PO For Magnesium 1.2 - 1.6 mg/dL; Start 07/13/17 at 11:30; Stop 07/27/17 at 13:50; Status DC Magnesium Sulfate 4 gm/Sodium Chloride 100 ml @ 50 mls/hr UNSCH PRN IV For Magnesium 0.9 - 1.1 mg/dL; Start 07/13/17 at 11:30; Stop 07/27/17 at 13:50; Status DC Magnesium Sulfate 2 gm/Sodium Chloride 100 ml @ 50 mls/hr UNSCH PRN IV For Magnesium 1.2 - 1.6 mg/dL; Start 07/13/17 at 11:30; Stop 07/27/17 at 13:50; Status DC Potassium Chloride 100 ml @ 50 mls/hr Q2H PRN IV For Potassium 2.8 - 3.2 mEq/L ; Start 07/13/17 at 11:30; Stop 07/27/17 at 13:50; Status DC Potassium Chloride 100 ml @ 50 mls/hr Q2H PRN IV For Potassium 3.3 - 3.5 mEq/L ; Start 07/13/17 at 11:30; Stop 07/27/17 at 13:50; Status DC Potassium Chloride 100 ml @ 50 mls/hr Q2H PRN IV For Potassium 2.8 - 3.2 mEq/L ; Start 07/13/17 at 11:30; Stop 07/27/17 at 13:50; Status DC Potassium Chloride 100 ml @ 25 mls/hr UNSCH PRN IV For Potassium 3.3 - 3.5 mEq /L; Start 07/13/17 at 11:30; Stop 07/27/17 at 13:50; Status DC Potassium Phosphate (K-Phos) 2,000 mg Q4H PRN PO For Phosphorus < 2.5 mg/dL; Start 07/13/17 at 11:30; Stop 07/27/17 at 13:50; Status DC Potassium Phosphate (K-Phos) 2,000 mg UNSCH PRN PO/TUBE SEE LABEL COMMENTS; Start 07/13/17 at 11:30; Stop 07/27/17 at 13:50; Status DC Potassium Phosphate 30 mmol/ Sodium Chloride 260 ml @ 42 mls/hr UNSCH PRN IV SEE LABEL COMMENTS; Start 07/13/17 at 11:30; Stop 07/27/17 at 13:50; Status DC Sodium Phosphate 30 mmol/Sodium Chloride 250 ml @ 42 mls/hr UNSCH PRN IV For Phosphorus < 2.5 mg/dL; Start 07/13/17 at 11:30; Stop 07/27/17 at 13:50; Status DC Vancomycin HCl 1000 mg/Sodium Chloride 250 ml @ 250 mls/hr Q24H IV Last administered on 07/14/17t 11:29; Start 07/14/17 at 12:00; Stop 07/15/17 at 07:21 ; Status DC Miscellaneous Information SPECIFIC LAB TO BE DRAWN:VANCO TROUGH DATE TO... ONCE ONCE .XX ; Start 07/15/17 at 11:45; Stop 07/15/17 at 11:46; Status DC Albuterol/ Ipratropium (Duoneb Neb) 1 ampule Q6HR NEB INH Last administered on 07/18/17 14:37; Start 07/14/17 at 22:00; Stop 07/18/17 at 21:59; Status DC Ceftriaxone Sodium 2000 mg/ Sodium Chloride 100 ml @ 200 mls/hr Q24H IV Last administered on 07/17/17 07:35; Start 07/15/17 at 08:00; Stop 07/17/17 at 16:45 ; Status DC Sodium Chloride (NS Flush) 2 ml BID IV FLUSH Last administered on 07/29/17 07: 54; Start 07/16/17 at 09:00 Sodium Chloride (NS Flush) 2 ml UNSCH PRN IV FLUSH FLUSH AFTER USING IV ACCESS Last administered on 07/15/17 20:02; Start 07/15/17 at 13:30 Vancomycin HCl 1000 mg/Sodium Chloride 1,000 ml @ 0 mls/hr SLEEP LAB TECHNICIAN IRRIGATION Last administered on 07/17/17 11:34; Start 07/15/17 at 13:30; Stop 07/22/17 at 13:29; Status DC Vancomycin HCl 1250 mg/Sodium Chloride 262.5 ml @ 262.5 mls/ hr SLEEP LAB TECHNICIAN IV Last administered on 07/17/17 10:10; Start 07/15/17 at 13:30; Stop 07/22/17 at 13:29; Status DC Chlorhexidine Gluconate (Hibiclens 4% Top Soln) 1 applic SLEEP LAB TECHNICIAN TOPICAL ; Start 07/15/17 at 13:30; Stop 07/22/17 at 13:29; Status DC Metoprolol Tartrate (Lopressor Inj) 5 mg STK-MED ONCE .ROUTE ; Start 07/16/17 at 13:00; Stop 07/16/17 at 13:01; Status DC Diltiazem HCl (Cardizem Inj) 15 mg ONCE ONCE IV PUSH Last administered on 07/16 13:26; Start 07/16/17 at 14:00; Stop 07/16/17 at 14:01; Status DC Diltiazem HCl 125 mg/Sodium Chloride 125 ml @ 5 mls/hr TITRATE PRN IV Tachycardia Last administered on 07/16/17 13:27; Start 07/16/17 at 14:00; Stop 07/17/17 at 08:34; Status DC Metoprolol Tartrate (Lopressor Inj) 5 mg ONCE ONCE IV PUSH Last administered on 07/16/17 13:26; Start 07/16/17 at 14:00; Stop 07/16/17 at 14:01; Status DC Potassium Chloride (KCl) 30 meq ONCE ONCE PO Last administered on 07/16/17 13 :25; Start 07/16/17 at 13:15; Stop 07/16/17 at 13:16; Status DC Magnesium Sulfate/ Dextrose 100 ml @ 100 mls/hr ONCE ONCE IV Last administered on 07/16/17 13:26; Start 07/16/17 at 14:00; Stop 07/16/17 at 14:59 ; Status DC Methylprednisolone Sodium Succinate (SoluMEDROL INJ) 30 mg Q12HR IV PUSH Last administered on 07/22/17 09:03; Start 07/17/17 at 21:00; Stop 07/22/17 at 10:46 ; Status DC Heparin Sodium (Porcine) (Heparin Inj) 30,000 units [employer] ONCE .ROUTE ; Start 07/17/17 at 09:30; Stop 07/17/17 at 09:31; Status DC Bupivacaine Liposome 20 ml/ Dexamethasone Sodium Phosphate 4 mg/Morphine Sulfate 8 mg/ Sodium Chloride 41.8 ml @ 0 mls/hr ONCE ONCE IRRIGATION ; Start 07/17/17 at 09:45; Stop 07/17/17 at 09:46; Status DC Miscellaneous Information (Post-op Orders (for Pharmacy)) STAT ONCE OTHER Last administered on 07/17/17 12:30; Start 07/17/17 at 12:30; Stop 07/17/17 at 13:20; Status DC Vancomycin HCl 1 gm/Sodium Chloride 250 ml @ 250 mls/hr Q12H IV Last administered on 07/18/17 09:14; Start 07/17/17 at 22:00; Stop 07/18/17 at 10:59 ; Status DC Acetaminophen 100 ml @ 400 mls/hr Q6H IV Last administered on 07/18/17 05:14 ; Start 07/17/17 at 12:30; Stop 07/18/17 at 06:44; Status DC Ketorolac Tromethamine (Toradol Inj) 15 mg Q6H IV PUSH Last administered on 09:13; Start 07/17/17 at 13:00; Stop 07/18/17 at 07:01; Status DC Famotidine (Pepcid Inj) 20 mg Q12HR IV PUSH Last administered on 07/24/17 08: 45; Start 07/17/17 at 21:00; Stop 07/24/17 at 10:12; Status DC Cefazolin Sodium/ Dextrose 50 ml @ 100 mls/hr Q8H IV Last administered on 07/29 02:00; Start 07/17/17 at 18:00 Hydromorphone HCl (Dilaudid Pf Inj) 0.5 mg Q4H PRN IV PUSH PAIN Last administered on 07/28/17 17:03; Start 07/18/17 at 15:45 Bumetanide (Bumex Inj) 1 mg ONCE ONCE IV PUSH Last administered on 07/19/17 11:02; Start 07/19/17 at 10:00; Stop 07/19/17 at 10:01; Status DC Albuterol/ Ipratropium (Duoneb Neb) 1 ampule Q4HR NEB NEB Last administered on 07/23/17 11:16; Start 07/19/17 at 12:00; Stop 07/23/17 at 11:59; Status DC Metoprolol Tartrate (Lopressor) 25 mg Q12HR PO Last administered on 07/29/17 07:54; Start 07/21/17 at 13:15 Hydralazine HCl (Apresoline Inj) 10 mg Q6H PRN IV PUSH SYS BP GREATER THAN 160 MMHG Last administered on 07/23/17 12:54; Start 07/21/17 at 13:15; Stop at 10:15; Status DC Labetalol HCl (Trandate Inj) 20 mg Q4H PRN IV SBP > 170 Last administered on 04:28; Start 07/22/17 at 02:30 Methylprednisolone Sodium Succinate (SoluMEDROL INJ) 20 mg Q12HR IV PUSH Last administered on 07/24/17 08:44; Start 07/22/17 at 21:00; Stop 07/24/17 at 10:12 ; Status DC Hydromorphone HCl (Dilaudid Pf Inj) 0.5 mg ONCE ONCE IV PUSH Last administered on 07/22/17 23:03; Start 07/22/17 at 23:00; Stop 07/22/17 at 23:01 ; Status DC Albuterol/ Ipratropium (Duoneb Neb) 1 ampule Q6HR NEB NEB Last administered on 07/27/17 08:07; Start 07/23/17 at 16:00; Stop 07/27/17 at 09:32; Status DC Albuterol Sulfate (Albuterol Neb) 2.5 mg Q2HR NEB PRN NEB DYSPNEA; Start at 14:30 Nifedipine (Procardia) 10 mg Q8HR PO Last administered on 07/24/17 06:44; Start 07/23/17 at 22:00; Stop 07/24/17 at 10:15; Status DC Insulin Human Regular (NovoLIN R SUPPLEMENTAL SCALE) 1 ACHS SQ ; Start 07/24/17 at 12:00 Famotidine (Pepcid) 20 mg BID PO Last administered on 07/29/17 07:54; Start at 21:00 Prednisone (Deltasone) 20 mg DAILY PO Last administered on 07/29/17 07:54; Start 07/25/17 at 09:00 Hydralazine HCl (Apresoline Inj) 10 mg Q2HR PRN IV PUSH SYS BP GREATER THAN 170 MMHG Last administered on 07/26/17 09:07; Start 07/24/17 at 10:15 Nifedipine (Procardia) 20 mg Q8HR PO Last administered on 07/26/17 15:32; Start 07/24/17 at 14:00; Stop 07/26/17 at 22:46; Status DC Hydralazine HCl (Apresoline) 10 mg Q8HR PO Last administered on 07/29/17 04:45 ; Start 07/24/17 at 14:00 Isosorbide Dinitrate (Isordil) 10 mg Q8HR PO Last administered on 07/29/17 04: 45; Start 07/24/17 at 14:00 Nitroglycerin (Nitroglycerin 2% Oint) 2 inch Q6HR PRN TOPICAL SBP>170, DBP>90; Start 07/24/17 at 10:15 Fluconazole (Diflucan) 100 mg Q24H PO Last administered on 07/28/17 14:43; Start 07/24/17 at 15:00; Stop 07/31/17 at 14:59 Nifedipine (Procardia) 20 mg Q8HR PO Last administered on 07/29/17 04:45; Start 07/26/17 at 23:00 Potassium Phosphate 30 mmol/ Sodium Chloride 260 ml @ 43.333 mls/ hr ONCE ONCE IV Last administered on 07/27/17 16:15; Start 07/27/17 at 13:00; Stop at 18:59; Status DC Potassium Phosphate (K-Phos) 1,000 mg Q12HR PO Last administered on 07/29/17 07:54; Start 07/27/17 at 11:15 Potassium Chloride (KCl) 40 meq DAILY PO Last administered on 07/29/17 07:54; Start 07/27/17 at 11:15 Lactobacillus Acidophilus (Lactinex) 1 tab TID PO ; Start 07/29/17 at 13:00 Urinary Catheter: No Vascular Central Line Catheter: Yes Assessment to: Continue Date of Insertion: Jul 29, 2017 Date of Removal: Jul 29, 2017 Line: PICC (MIDLINE ON RIGHT SIDE) Side: Right Reason for Continuation NEEDS ANTIBIOTICS MIDLINE ON THE RIGHT SIDE A/P Problem List: (1) Empyema ICD Code: J86.9 - Pyothorax without fistula (2) S/P Right Thoracotomy with Decortication (3) right locualted pleural effusion Assessment and Plan Assessment and Plan Neuro/Psych: Metabolic encephalopathy - resolved - Dilaudid when necessary for pain - Neuro checks per ICU protocol Respiratory: Right sided empyema/eczematous secondary to staph aureus Severe bilateral community-acquired pneumonia, with cavitation Acute hypoxic respiratory failure-resolved COPD exacerbation - s/p right VATS, mini thoracotomy, decortication 07/17 for organizing empyema. Chest tube discontinued 07/22 - CT chest initially revealed cavitating pneumonia involving right upper lobe and left lower lobe - Extubated 07/21/17 at 1500 and tolerating well - CXR: Repeat 07/22 every morning -Continue albuterol/ipratropium aerosols every 6 hours with albuterol aerosols every 2 hours. Dyspnea - On methylprednisolone 20 mg IV every 12 hours. Wean the prednisone 20 no grams by mouth daily today Cardiovascular: Septic shock- resolved. NSTEMI/Type II Demand Ischemia History of hypertension Pulmonary hypertension - Unlikely to be ACS. clinically has sepsis syndrome - On Lopressor 25mg Q12 and restarted Procardia 20 mg every 8 hours. Add hydralazine 10 mg every 8 hours and Isordil 10 mg every 8 hours. On Procardia XL 60 mg daily at home.- Monitor HR and BP keep MAP>65mmHg. IV labetalol and IV hydralazine when necessary for systolic blood pressure more than 160 -Echo 07/16 showed EF 50-55%, no vegetations. Small pericardial effusion. Mild pulmonary hypertension 42 mmHg Renal: Acute Kidney Injury- resolving. - Monitor renal function, I/O's, electrolytes replacement per protocol. FEN/GI: Acute protein calorie malnutrition- severe -Currently on nectar thickened liquids. - Famotidine for GI prophylaxis - Docusate sodium/senna 1 tablet twice a day for bowel regimen ID: Acute Community Acquired Pneumonia with MSSA Empyema Septic Shock- resolved UTI with lactobacillus - Continue cefazolin through 07/31 and switch to oral medication 3 weeks - monitor for signs of infections ( Fever, WBC) - ID-Dr. Luna - Pertinent cultures. sputum 07/11 MSSA , urine 07/11 lactobacillus - urine legionella and pneumococcal ag negative 07/11 - Multiple pleural fluid cultures MSSA Endocrine: Hyperglycemia of Critical Illness -- SSI Heme: Anemia Leukocytosis Monitor CBC, s/p transfusion 1unit PRBC 07/19 CBC today pending MSK: Stage I decubitus ulcer Wound care evaluate and treat and follow recommendations Prophylaxis: GI Prophylaxis Famotidine DVT Prophylaxis -- SCDs SQH Lines: Peripheral IV. NEEDS PT AND OT AND SPEECH THERAPY DW RN AND PT PT IS CONFUSED OK FOR MED/SURG TELE NEAR RN STATION NEEDS SAFE PLACE FOR DISCHARGE DW CASE MANAGEMENT AM LABS CONTINUE PT 7 DAYS A WEEK CONTINUE OT DW PATIENT AND RN CONTINUE ANTIBIOTICS PER ID ON ROCEPHIN DAILY THRU AUG 06 THEN KEFLEX HAD MIDLINE PLACE 07-29 HYPOMAG REPLACE 2 GRAMS AM LABS NOT MOBILE YET Discharge Planning WILL NEED PLACEMENT Gee Orourke DO Jul 29, 2017 12:12
[2017-07-29] MEDS: LACTOBACILLUS ACIDOPHILUS TAB PO SCH ×2 (12:16→17:27)
[2017-07-29] MEDS: MAGNESIUM SULFATE 1 GM PREMIX 100 ML IV SCH ×2 (12:53→14:42)
[2017-07-29] MEDS: FLUCONAZOLE 100 MG TAB PO SCH (14:42)
[2017-07-29] MEDS: HYDROmorphone HCL PF 1 MG/ML VIAL IV PUSH PRN ×2 (17:28→21:37)
[2017-07-29 18:21] LABS: C. DIFF EPI 027 PRESUMPTIVE NEGATIVE (NEGATIVE)
[2017-07-30] VITALS (8 sets, daily range): BP systolic 142–173; BP diastolic 77–98; PULSE 68–88; RESP 16–20; TEMP 97.1–98.4; O2SAT 95–98
[2017-07-30] MEDS: HYDROmorphone HCL PF 1 MG/ML VIAL IV PUSH PRN ×5 (01:23→21:29)
[2017-07-30] MEDS: ceFAZolin 2 GM PREMIX 50 ML IV SCH ×3 (01:24→17:54)
[2017-07-30] MEDS: CHLORHEXIDINE GLUCONATE 2 % 1 PACK (2 CLOTHS) TOP SCH (04:00)
[2017-07-30] MEDS: hydrALAZINE HCL 10 MG TAB PO SCH ×3 (06:35→21:15)
[2017-07-30] MEDS: ISOSORBIDE DINITRATE 10 MG TAB PO SCH ×3 (06:36→21:15)
[2017-07-30] MEDS: NIFEdipine 10 MG CAP PO SCH ×3 (06:37→21:15)
[2017-07-30 06:58] LABS: AUTOMATED NEUTROPHIL # 6.8 TH/MM3 (1.8-7.7); BASOPHIL # 0.1 TH/MM3 (0-0.2); BASOPHIL % 0.8 % (0.0-2.0); EOSINOPHIL # 0.4 TH/MM3 (0-0.4); HEMATOCRIT 30.2 % (35.0-46.0); HEMO FLAGS DIFF FINAL; LYMPH % 19.3 % (9.0-44.0); LYMPHOCYTE # 1.8 TH/MM3 (1.0-4.8); MEAN CELL VOLUME 82.8 FL (80.0-100.0); MEAN CORPUSCULAR HEMOGLOBIN 27.3 PG (27.0-34.0); MEAN CORPUSCULAR HGB CONC 32.9 % (32.0-36.0); MONO % 4.7 % (0.0-8.0); NEUT % 71.2 % (16.0-70.0); PLATELET COUNT 283 TH/MM3 (150-450); RED BLOOD COUNT 3.65 MIL/MM3 (4.00-5.30); RED CELL DISTRIBUTION WIDTH 20.2 % (11.6-17.2); WHITE BLOOD COUNT 9.6 TH/MM3 (4.0-11.0)
[2017-07-30 07:39] LABS: ALKALINE PHOSPHATASE 125 U/L (45-117); ALT (GPT) LESS THAN 6 U/L (10-53); ANION GAP 8 MEQ/L (5-15); AST (GOT) 10 U/L (15-37); BICARBONATE 21.5 MEQ/L (21.0-32.0); BLOOD UREA NITROGEN 11 MG/DL (7-18); CHLORIDE 112 MEQ/L (98-107); GLOMERULAR FILTRATION RATE 116 ML/MIN (>89); MAGNESIUM 2.2 MG/DL (1.5-2.5); POTASSIUM 3.8 MEQ/L (3.5-5.1); SODIUM (NA) 141 MEQ/L (136-145); TOTAL BILIRUBIN ADULT 0.4 MG/DL (0.2-1.0)
[2017-07-30] MEDS: CHLORHEXIDINE 0.12% (ORAL KIT) 15 ML CUP MT SCH ×2 (08:00→20:00)
[2017-07-30] MEDS: INSULIN NovoLIN REGULAR SUPPLEMENTAL SCALE SQ SCH ×4 (08:00→21:00)
[2017-07-30] MEDS: SODIUM CHLORIDE 0.9% FLUSH 10 ML FLUSH IV FLUSH SCH ×2 (08:33→21:16)
[2017-07-30] MEDS: METOPROLOL TARTRATE 25 MG TAB PO SCH ×2 (08:34→21:15)
[2017-07-30] MEDS: LACTOBACILLUS ACIDOPHILUS TAB PO SCH ×3 (08:34→17:56)
[2017-07-30] MEDS: POTASSIUM CHLORIDE 10 MEQ CONTROLLED RELEASE TAB PO SCH (08:34)
[2017-07-30] MEDS: predniSONE 20 MG TAB PO SCH (08:34)
[2017-07-30] MEDS: POTASSIUM PHOSPHATE MONOBASIC 500 MG TAB PO SCH ×2 (08:35→21:15)
[2017-07-30] MEDS: FAMOTIDINE 20 MG TAB PO SCH ×2 (08:35→21:15)
[2017-07-30] MEDS: DOCUSATE SODIUM 50 MG/SENNA 8.6 MG TAB PO SCH ×2 (08:36→21:15)
--- NOTE | 2017-07-30 11:59 | HHI.PR ---
Subjective Remarks 66-year-old female with history of COPD, hypertension, presents to the ER tbrought in by EMS after called stating that his was having respiratory issues. She was found in respiratory distress, GCS 6, and was intubated by EMS for airway protection. They state that she initially sounded like she had rales bilaterally. She is not able to give me any further history. They found that her blood pressure was 70 systolic and started her on IV fluids and Levophed. 07/12: still on vasopressors. weaning fio2. remains in shock. mental status still poor, although now purposeful. renal function slowly improving, although remains severely oliguric. 07/13: clinically starting to improve. off vasopressors. fio2 improving. cultures still no growth to date. renal function also improving. 07/14: Remains intubated sedated, encephalopathic. Failed SBT due to tachypnea. UO 2.3 L in 24 hours. On sedation hold do not follow commands. Get CT chest to evaluate loculated effusion 07/15: R pigtail chest tube placed yesterday and 07/14/17. Fluid had appearance of early empyema (yellow cloudy). Pleural fluid studies shows WBC count of 32, 227 with 93% neutrophils. Fluid LDH is 2587 (serum LDH 143) fluid glucose is 44 (serum 158). CTS and ID consulted 07/16: Remains intubated sedated, on sedation hold patient becomes tachypneic. CTS consulted for right empyema. Patient is scheduled for right video-assisted thoracoscopy, with possible thoracotomy by Dr. Carpio 07/17/17. ID also following. CT chest from yesterday shows right upper lobe lobe and left lower lobe cavitating pneumonia, bilateral small effusions. Remains critically ill but stabilizing 07/17 Patient is sedated and intubated. Afebrile. For right VATS/thoracotomy and pleurodesis today. 07/18 Patient s/p mini thoracotomy, right VATS, decortication yesterday. Remains sedated with Diprivan. Fentanyl and intubated. Afebrile. 07/19 No events overnight. Patient did not tolerate CPAP trials yesterday as she became tachypneic, tachycardic and hypertensive. Sedated with Diprivan and Fentanyl drips. 07/20 Patient remains sedated with Diprivan, fentanyl and intubated. Afebrile. 07/21 No events overnight. Sedated and intubated. Tolerated CPAP for several hrs yesterday. Afebrile. 07/22: Extubated yesterday tolerating well. Failed swallow eval yesterday repeat today. CT surgery planning on chest tube removal today. BP elevated, getting when necessary labetalol and hydralazine IV 07/23: Resting comfortably in no acute distress. On room air. Tolerating nectar thickened diet. Linares placement removed today. Restarting Procardia today 07/24: Receiving as needed labetalol for hypertension. Urinary retention noted. On room air. Complaining of pain in right upper extremity. 07/25 PATIENT TRANSFERRED TO OUR SERVICE TODAY [facility] RN AND PT [place] VERY CONFUSED 07-26 STILL CONFUSED BUT LESS THAN YESTERDAY DW RN AND PT CAN MOVE TO MED/SURG TELE FLOOR PT AND OT INCREASE ACTIVITY 07-27 much more awake and alert but still confused Wants "thick coffee" Is not on a thickened diet probably meant to say strong coffee Discussed with patient and RN 07-28 NOT CONFUSED TODAY STATES LIVES WITH A IN A HOUSE DW RN AND PT 07-29 HAD MIDLINE PLACED TODAY IS NOT AMBULATORY AT THIS TIME NEEDS TO WORK WITH PT AND OT 07-30 NEEDS TO WORK WITH PT AND OT NOT AMBULATORY YET STATES NOT A GOOD DAY TODAY NO SOB, NO CHEST PAIN DW RN Objective Vitals Vital Signs Date Time Temp Pulse Resp B/P (MAP) Pulse Ox O2 Delivery O2 Flow Rate FiO2 07/30/17 11:13 97.3 84 20 149/91 (110) 95 07/30/17 08:27 Room Air 07/30/17 08:25 83 20 154/82 (106) 95 07/30/17 08:00 68 07/30/17 05:15 98.4 69 16 167/98 (121) 95 07/30/17 00:04 97.5 68 16 156/77 (103) 96 07/29/17 23:09 73 147/84 (105) 07/29/17 21:30 97.2 73 16 164/99 (120) 97 Automatic Cuff 07/29/17 20:00 82 07/29/17 20:00 Room Air 07/29/17 16:00 97.4 72 18 142/102 (115) 99 07/29/17 12:00 97.2 63 18 177/99 (125) 93 I/O 07/29/17 07/29/17 07/29/17 07/30/17 07/30/17 07/30/17 07:00 15:00 23:00 07:00 15:00 23:00 Intake Total 150 ml 340 ml 240 ml Output Total 0 ml Balance 150 ml 340 ml 240 ml Intake Oral 240 ml 240 ml IV Total 150 ml 100 ml Output Urine Total 0 ml # Voids 3 1 # Bowel Movements 2 3 0 Result Diagram: 07/30/17 0643 07/30/17 0643 Other Results Laboratory Tests Test 07/28/17 07:04 07/29/17 14:45 07/30/17 06:43 White Blood Count 10.9 TH/MM3 9.6 TH/MM3 Red Blood Count 3.72 MIL/MM3 3.65 MIL/MM3 Hemoglobin 10.2 GM/DL 9.9 GM/DL Hematocrit 31.1 % 30.2 % Mean Corpuscular Volume 83.4 FL 82.8 FL Mean Corpuscular Hemoglobin 27.4 PG 27.3 PG Mean Corpuscular Hemoglobin Concent 32.9 % 32.9 % Red Cell Distribution Width 20.2 % 20.2 % Platelet Count 318 TH/MM3 283 TH/MM3 Mean Platelet Volume 7.5 FL 7.0 FL Neutrophils (%) (Auto) 76.5 % 71.2 % Lymphocytes (%) (Auto) 15.2 % 19.3 % Monocytes (%) (Auto) 4.7 % 4.7 % Eosinophils (%) (Auto) 3.1 % 4.0 % Basophils (%) (Auto) 0.5 % 0.8 % Neutrophils # (Auto) 8.4 TH/MM3 6.8 TH/MM3 Lymphocytes # (Auto) 1.7 TH/MM3 1.8 TH/MM3 Monocytes # (Auto) 0.5 TH/MM3 0.5 TH/MM3 Eosinophils # (Auto) 0.3 TH/MM3 0.4 TH/MM3 Basophils # (Auto) 0.1 TH/MM3 0.1 TH/MM3 CBC Comment DIFF FINAL DIFF FINAL Differential Comment Blood Urea Nitrogen 9 MG/DL 11 MG/DL Creatinine 0.44 MG/DL 0.53 MG/DL Random Glucose 80 MG/DL 83 MG/DL Total Protein 6.4 GM/DL 6.7 GM/DL Albumin 2.4 GM/DL 2.6 GM/DL Calcium Level 7.9 MG/DL 8.1 MG/DL Phosphorus Level 2.6 MG/DL 3.0 MG/DL Magnesium Level 1.6 MG/DL 2.2 MG/DL Alkaline Phosphatase 129 U/L 125 U/L Aspartate Amino Transf (AST/SGOT) 12 U/L 10 U/L Alanine Aminotransferase (ALT/SGPT) 8 U/L LESS THAN 6 U/L Total Bilirubin 0.4 MG/DL 0.4 MG/DL Sodium Level 142 MEQ/L 141 MEQ/L Potassium Level 3.9 MEQ/L 3.8 MEQ/L Chloride Level 111 MEQ/L 112 MEQ/L Carbon Dioxide Level 22.6 MEQ/L 21.5 MEQ/L Anion Gap 8 MEQ/L 8 MEQ/L Estimat Glomerular Filtration Rate 144 ML/MIN 116 ML/MIN Stool C. difficile Toxin (PCR) NEGATIVE Stl C. difficile Toxin Epiderm 027 PRESUMPTIVE NEGATIVE Imaging Last Impressions Chest X-Ray 07/27/17 0000 Signed Impressions: Service Date/Time: Thursday, July 27, 2017 11:28 - CONCLUSION: Cavitary mass right upper lobe is unchanged. Please see above. Ronaldo Juárez MD Chest CT 07/15/17 0000 Signed Impressions: Service Date/Time: Saturday, July 15, 2017 11:25 - CONCLUSION: 1. There are extensive pleural and parenchymal changes. There are densely consolidated areas cavitation involving the right upper lobe and posterior aspect of the left lower lobe concerning for cavitary areas of pneumonia. 2. There are bilateral pleural effusions. The effusion effusions are small in size. There is considerable consolidated lung in the lung bases bilaterally. 3. Old, healed posterior rib fractures on the left. 4. Small pericardial effusion. Kendall Corona MD Objective Remarks GENERAL: 66-year-old female resting in bed in no acute distress SKIN: Warm and dry. Stage I decubitus ulcer HEAD: Atraumatic. Normocephalic. EYES: Pupils equal and round. No scleral icterus. No injection or drainage. EOMI ENT: No nasal bleeding or discharge. Mucous membranes pink and moist. TONGUE MIDLINE NECK: Trachea midline. No JVD. SUPPLE CARDIOVASCULAR: Regular rate and rhythm. S1, S2 no S3 OR S4. RESPIRATORY: Coarse RHONCHI breath sounds appreciated bilaterally. No wheezing GASTROINTESTINAL: Abdomen soft, non-tender, nondistended. Hepatic and splenic margins not palpable. MUSCULOSKELETAL: Extremities with trace bilateral lower extremity edema. 1+ left upper extremity edema.. NEUROLOGICAL: Awake and alert. No obvious cranial nerve deficits. Motor grossly within normal limits. 4 out of 5 muscle strength in the arms and legs. Normal speech. PSYCHIATRIC: INAppropriate mood and affect; insight and judgment ABnormal. Procedures - s/p right VATS, mini thoracotomy, decortication 07/17 for organizing empyema. cc: Viraj Carpio MD Operative Report Date of Surgery: Jul 17, 2017 Preoperative Diagnosis: Postoperative Diagnosis: Procedure: 1. Right Video Assisted Thoracoscopic Surgery (VATS) 2. Right Posterolateral Muscle Sparing Mini-Thoracotomy 3. Decortication 4. Intercostal Nerve Block Surgeon: Viraj Carpio Nuclear Physics Professor(s): Danny Sargent Operation and Findings: PREOPERATIVE DIAGNOSIS 1. Right Organized Empyema 2. Loculated Abscess Cavities 3. Pneumonia 4. Respiratory Failure POSTOPERATIVE DIAGNOSIS same PROCEDURES 1. Right Video Assisted Thoracoscopic Surgery (VATS) 2. Right Posterolateral Muscle Sparing Mini-Thoracotomy 3. Decortication 4. Intercostal Nerve Block SURGEON Viraj Carpio MD Medications and IVs Current Medications Sodium Chloride 1,000 ml @ 1,000 mls/hr Q1H ONCE IV Last administered on 07:05; Start 07/11/17 at 06:45; Stop 07/11/17 at 07:44; Status DC Cefepime HCl 2000 mg/Sodium Chloride 100 ml @ 200 mls/hr ONCE STAT IV ; Start 07/11/17 at 07:17; Stop 07/11/17 at 07:32; Status DC Azithromycin 500 mg/Sodium Chloride 250 ml @ 250 mls/hr ONCE STAT IV ; Start 07/11/17 at 07:17; Stop 07/11/17 at 07:32; Status DC Vancomycin HCl 1000 mg/Sodium Chloride 250 ml @ 250 mls/hr ONCE ONCE IV Last administered on 07/11/17 07:47; Start 07/11/17 at 07:30; Stop 07/11/17 at 08:29; Status DC Levofloxacin/ Dextrose 100 ml @ 100 mls/hr ONCE ONCE IV Last administered on 07/11/17 07:48; Start 07/11/17 at 07:30; Stop 07/11/17 at 08:29; Status DC Piperacillin Sod/ Tazobactam Sod 50 ml @ 100 mls/hr ONCE ONCE IV Last administered on 07/11/17 08:12; Start 07/11/17 at 07:30; Stop 07/11/17 at 07:59; Status DC Sodium Chloride 1,000 ml @ 999 mls/hr BOLUS ONCE IV Last administered on 07:41; Start 07/11/17 at 07:30; Stop 07/11/17 at 08:30; Status DC Propofol 100 ml @ 0 mls/hr TITRATE IV Last administered on 07/21/17 09:34; Start 07/11/17 at 09:00; Stop 07/21/17 at 14:52; Status DC Fentanyl Citrate 250 ml @ 0 mls/hr TITRATE IV Last administered on 07/20/17 13 :23; Start 07/11/17 at 09:00; Stop 07/21/17 at 14:52; Status DC Chlorhexidine Gluconate (Peridex 0.12% Liq) 15 ml BID@08,20 MT Last administered on 07/27/17 08:00; Start 07/11/17 at 20:00 Dextrose (D50w (Vial) Inj) 25 ml UNSCH PRN IV PUSH HYPOGLYCEMIA-SEE COMMENTS; Start 07/11/17 at 09:00 Insulin Human Regular (NovoLIN R SUPPLEMENTAL SCALE) 1 Q6HR SQ Last administered on 07/15/17 12:00; Start 07/11/17 at 12:00; Stop 07/24/17 at 10:12 ; Status DC Albuterol/ Ipratropium (Duoneb Neb) 1 ampule Q6HR NEB INH Last administered on 07/14/17 08:31; Start 07/11/17 at 10:00; Stop 07/14/17 at 16:42; Status DC Albuterol/ Ipratropium (Duoneb Neb) 1 ampule Q2HR NEB PRN INH WHEEZING Last administered on 07/19/17 20:50; Start 07/11/17 at 09:00; Stop 07/23/17 at 14:39 ; Status DC Sodium Chloride 1,000 ml @ 120 mls/hr Q8H20M IV Last administered on 08:31; Start 07/11/17 at 08:48; Stop 07/13/17 at 11:30; Status DC Famotidine (Pepcid Inj) 10 mg Q12HR IV PUSH Last administered on 07/17/17 07: 35; Start 07/11/17 at 10:00; Stop 07/17/17 at 14:53; Status DC Ondansetron HCl (Zofran Inj) 4 mg Q6H PRN IV PUSH NAUSEA OR VOMITING Last administered on 07/26/17 05:26; Start 07/11/17 at 09:00 Miscellaneous Information 1 Q361D XX ; Start 07/11/17 at 09:00 Chlorhexidine Gluconate (Chlorhexidine 2% Cloth) Taper DAILY@04 TOP Last administered on 07/18/17 03:19; Start 07/12/17 at 04:00; Stop 07/08/18 at 03:59 Chlorhexidine Gluconate (Chlorhexidine 2% Cloth) 3 pack UNSCH PRN TOP HYGIENIC CARE; Start 07/11/17 at 09:00 Senna/Docusate Sodium (Pallavi-Colace) 1 tab BID PO Last administered on 20:21; Start 07/11/17 at 10:00 Piperacillin Sod/ Tazobactam Sod 50 ml @ 100 mls/hr Q8H IV Last administered on 07/15/17 00:35; Start 07/11/17 at 17:00; Stop 07/15/17 at 07:21; Status DC Levofloxacin/ Dextrose 150 ml @ 100 mls/hr Q48H IV Last administered on 09:21; Start 07/13/17 at 09:00; Stop 07/20/17 at 09:17; Status DC Pharmacy Profile Note 0 ml @ 0 mls/hr UNSCH OTHER ; Start 07/11/17 at 09:00; Stop 07/15/17 at 07:21; Status DC Etomidate (Amidate Inj) 20 mg ONCE ONCE IV PUSH Last administered on 9/9/17at 09:33; Start 07/11/17 at 09:30; Stop 07/11/17 at 09:31; Status DC Etomidate (Amidate Inj) 20 mg STK-MED ONCE .ROUTE ; Start 07/11/17 at 09:28; Stop 07/11/17 at 09:29; Status DC Norepinephrine Bitartrate 250 ml @ 7.5 mls/hr TITRATE PRN IV Maintain MAP > 65 mmHg Last administered on 07/12/17 15:01; Start 07/11/17 at 19:30; Stop 07/13 at 11:30; Status DC Methylprednisolone Sodium Succinate (SoluMEDROL INJ) 60 mg Q12HR IV PUSH Last administered on 07/17/17 07:35; Start 07/11/17 at 21:00; Stop 07/17/17 at 08:34 ; Status DC Heparin Sodium (Porcine) (Heparin Inj) 5,000 units Q8HR SQ Last administered on 07/15/17 06:15; Start 07/11/17 at 22:00; Status Future Hold Sodium Chloride 1,000 ml @ 999 mls/hr Q1H IV Last administered on 07/12/17 03 :19; Start 07/12/17 at 02:15; Stop 07/12/17 at 04:14; Status DC Vancomycin HCl 1000 mg/Sodium Chloride 250 ml @ 250 mls/hr ONCE ONCE IV Last administered on 07/12/17 09:27; Start 07/12/17 at 09:00; Stop 07/12/17 at 09:59 ; Status DC Vancomycin HCl 1000 mg/Sodium Chloride 250 ml @ 250 mls/hr ONCE ONCE IV Last administered on 07/13/17 11:35; Start 07/13/17 at 10:00; Stop 07/13/17 at 10:59 ; Status DC Furosemide (Lasix Inj) 60 mg ONCE ONCE IV PUSH Last administered on 07/13/17 14:20; Start 07/13/17 at 11:30; Stop 07/13/17 at 12:52; Status DC Magnesium Oxide (Mag-Ox) 800 mg UNSCH PRN PO For Magnesium 1.2 - 1.6 mg/dL; Start 07/13/17 at 11:30; Stop 07/27/17 at 13:50; Status DC Magnesium Sulfate 4 gm/Sodium Chloride 100 ml @ 50 mls/hr UNSCH PRN IV For Magnesium 0.9 - 1.1 mg/dL; Start 07/13/17 at 11:30; Stop 07/27/17 at 13:50; Status DC Magnesium Sulfate 2 gm/Sodium Chloride 100 ml @ 50 mls/hr UNSCH PRN IV For Magnesium 1.2 - 1.6 mg/dL; Start 07/13/17 at 11:30; Stop 07/27/17 at 13:50; Status DC Potassium Chloride 100 ml @ 50 mls/hr Q2H PRN IV For Potassium 2.8 - 3.2 mEq/L ; Start 07/13/17 at 11:30; Stop 07/27/17 at 13:50; Status DC Potassium Chloride 100 ml @ 50 mls/hr Q2H PRN IV For Potassium 3.3 - 3.5 mEq/L ; Start 07/13/17 at 11:30; Stop 07/27/17 at 13:50; Status DC Potassium Chloride 100 ml @ 50 mls/hr Q2H PRN IV For Potassium 2.8 - 3.2 mEq/L ; Start 07/13/17 at 11:30; Stop 07/27/17 at 13:50; Status DC Potassium Chloride 100 ml @ 25 mls/hr UNSCH PRN IV For Potassium 3.3 - 3.5 mEq /L; Start 07/13/17 at 11:30; Stop 07/27/17 at 13:50; Status DC Potassium Phosphate (K-Phos) 2,000 mg Q4H PRN PO For Phosphorus < 2.5 mg/dL; Start 07/13/17 at 11:30; Stop 07/27/17 at 13:50; Status DC Potassium Phosphate (K-Phos) 2,000 mg UNSCH PRN PO/TUBE SEE LABEL COMMENTS; Start 07/13/17 at 11:30; Stop 07/27/17 at 13:50; Status DC Potassium Phosphate 30 mmol/ Sodium Chloride 260 ml @ 42 mls/hr UNSCH PRN IV SEE LABEL COMMENTS; Start 07/13/17 at 11:30; Stop 07/27/17 at 13:50; Status DC Sodium Phosphate 30 mmol/Sodium Chloride 250 ml @ 42 mls/hr UNSCH PRN IV For Phosphorus < 2.5 mg/dL; Start 07/13/17 at 11:30; Stop 07/27/17 at 13:50; Status DC Vancomycin HCl 1000 mg/Sodium Chloride 250 ml @ 250 mls/hr Q24H IV Last administered on 07/14/17 11:29; Start 07/14/17 at 12:00; Stop 07/15/17 at 07:21 ; Status DC Miscellaneous Information SPECIFIC LAB TO BE DRAWN:VANCO TROUGH DATE TO... ONCE ONCE .XX ; Start 07/15/17 at 11:45; Stop 07/15/17 at 11:46; Status DC Albuterol/ Ipratropium (Duoneb Neb) 1 ampule Q6HR NEB INH Last administered on 07/18/17 14:37; Start 07/14/17 at 22:00; Stop 07/18/17 at 21:59; Status DC Ceftriaxone Sodium 2000 mg/ Sodium Chloride 100 ml @ 200 mls/hr Q24H IV Last administered on 07/17/17 07:35; Start 07/15/17 at 08:00; Stop 07/17/17 at 16:45 ; Status DC Sodium Chloride (NS Flush) 2 ml BID IV FLUSH Last administered on 07/30/17 08: 33; Start 07/16/17 at 09:00 Sodium Chloride (NS Flush) 2 ml UNSCH PRN IV FLUSH FLUSH AFTER USING IV ACCESS Last administered on 07/15/17 20:02; Start 07/15/17 at 13:30 Vancomycin HCl 1000 mg/Sodium Chloride 1,000 ml @ 0 mls/hr STOCK PREPARATION OPERATOR IRRIGATION Last administered on 07/17/17 11:34; Start 07/15/17 at 13:30; Stop 07/22/17 at 13:29; Status DC Vancomycin HCl 1250 mg/Sodium Chloride 262.5 ml @ 262.5 mls/ hr STOCK PREPARATION OPERATOR IV Last administered on 07/17/17 10:10; Start 07/15/17 at 13:30; Stop 07/22/17 at 13:29; Status DC Chlorhexidine Gluconate (Hibiclens 4% Top Soln) 1 applic STOCK PREPARATION OPERATOR TOPICAL ; Start 07/15/17 at 13:30; Stop 07/22/17 at 13:29; Status DC Metoprolol Tartrate (Lopressor Inj) 5 mg STK-MED ONCE .ROUTE ; Start 07/16/17 at 13:00; Stop 07/16/17 at 13:01; Status DC Diltiazem HCl (Cardizem Inj) 15 mg ONCE ONCE IV PUSH Last administered on 07/16 13:26; Start 07/16/17 at 14:00; Stop 07/16/17 at 14:01; Status DC Diltiazem HCl 125 mg/Sodium Chloride 125 ml @ 5 mls/hr TITRATE PRN IV Tachycardia Last administered on 07/16/17 13:27; Start 07/16/17 at 14:00; Stop 07/17/17 at 08:34; Status DC Metoprolol Tartrate (Lopressor Inj) 5 mg ONCE ONCE IV PUSH Last administered on 07/16/17 13:26; Start 07/16/17 at 14:00; Stop 07/16/17 at 14:01; Status DC Potassium Chloride (KCl) 30 meq ONCE ONCE PO Last administered on 07/16/17 13 :25; Start 07/16/17 at 13:15; Stop 07/16/17 at 13:16; Status DC Magnesium Sulfate/ Dextrose 100 ml @ 100 mls/hr ONCE ONCE IV Last administered on 07/16/17 13:26; Start 07/16/17 at 14:00; Stop 07/16/17 at 14:59 ; Status DC Methylprednisolone Sodium Succinate (SoluMEDROL INJ) 30 mg Q12HR IV PUSH Last administered on 07/22/17 09:03; Start 07/17/17 at 21:00; Stop 07/22/17 at 10:46 ; Status DC Heparin Sodium (Porcine) (Heparin Inj) 30,000 units [employer] ONCE .ROUTE ; Start 07/17/17 at 09:30; Stop 07/17/17 at 09:31; Status DC Bupivacaine Liposome 20 ml/ Dexamethasone Sodium Phosphate 4 mg/Morphine Sulfate 8 mg/ Sodium Chloride 41.8 ml @ 0 mls/hr ONCE ONCE IRRIGATION ; Start 07/17/17 at 09:45; Stop 07/17/17 at 09:46; Status DC Miscellaneous Information (Post-op Orders (for Pharmacy)) STAT ONCE OTHER Last administered on 07/17/17 12:30; Start 07/17/17 at 12:30; Stop 07/17/17 at 13:20; Status DC Vancomycin HCl 1 gm/Sodium Chloride 250 ml @ 250 mls/hr Q12H IV Last administered on 07/18/17 09:14; Start 07/17/17 at 22:00; Stop 07/18/17 at 10:59 ; Status DC Acetaminophen 100 ml @ 400 mls/hr Q6H IV Last administered on 07/18/17 05:14 ; Start 07/17/17 at 12:30; Stop 07/18/17 at 06:44; Status DC Ketorolac Tromethamine (Toradol Inj) 15 mg Q6H IV PUSH Last administered on 09:13; Start 07/17/17 at 13:00; Stop 07/18/17 at 07:01; Status DC Famotidine (Pepcid Inj) 20 mg Q12HR IV PUSH Last administered on 07/24/17 08: 45; Start 07/17/17 at 21:00; Stop 07/24/17 at 10:12; Status DC Cefazolin Sodium/ Dextrose 50 ml @ 100 mls/hr Q8H IV Last administered on 07/30 11:08; Start 07/17/17 at 18:00 Hydromorphone HCl (Dilaudid Pf Inj) 0.5 mg Q4H PRN IV PUSH PAIN Last administered on 07/30/17 11:07; Start 07/18/17 at 15:45 Bumetanide (Bumex Inj) 1 mg ONCE ONCE IV PUSH Last administered on 07/19/17 11:02; Start 07/19/17 at 10:00; Stop 07/19/17 at 10:01; Status DC Albuterol/ Ipratropium (Duoneb Neb) 1 ampule Q4HR NEB NEB Last administered on 07/23/17 11:16; Start 07/19/17 at 12:00; Stop 07/23/17 at 11:59; Status DC Metoprolol Tartrate (Lopressor) 25 mg Q12HR PO Last administered on 07/30/17 08:34; Start 07/21/17 at 13:15 Hydralazine HCl (Apresoline Inj) 10 mg Q6H PRN IV PUSH SYS BP GREATER THAN 160 MMHG Last administered on 07/23/17 12:54; Start 07/21/17 at 13:15; Stop at 10:15; Status DC Labetalol HCl (Trandate Inj) 20 mg Q4H PRN IV SBP > 170 Last administered on 04:28; Start 07/22/17 at 02:30 Methylprednisolone Sodium Succinate (SoluMEDROL INJ) 20 mg Q12HR IV PUSH Last administered on 07/24/17 08:44; Start 07/22/17 at 21:00; Stop 07/24/17 at 10:12 ; Status DC Hydromorphone HCl (Dilaudid Pf Inj) 0.5 mg ONCE ONCE IV PUSH Last administered on 07/22/17 23:03; Start 07/22/17 at 23:00; Stop 07/22/17 at 23:01 ; Status DC Albuterol/ Ipratropium (Duoneb Neb) 1 ampule Q6HR NEB NEB Last administered on 07/27/17 08:07; Start 07/23/17 at 16:00; Stop 07/27/17 at 09:32; Status DC Albuterol Sulfate (Albuterol Neb) 2.5 mg Q2HR NEB PRN NEB DYSPNEA; Start at 14:30 Nifedipine (Procardia) 10 mg Q8HR PO Last administered on 07/24/17 06:44; Start 07/23/17 at 22:00; Stop 07/24/17 at 10:15; Status DC Insulin Human Regular (NovoLIN R SUPPLEMENTAL SCALE) 1 ACHS SQ ; Start 07/24/17 at 12:00 Famotidine (Pepcid) 20 mg BID PO Last administered on 07/30/17 08:35; Start at 21:00 Prednisone (Deltasone) 20 mg DAILY PO Last administered on 07/30/17 08:34; Start 07/25/17 at 09:00 Hydralazine HCl (Apresoline Inj) 10 mg Q2HR PRN IV PUSH SYS BP GREATER THAN 170 MMHG Last administered on 07/26/17 09:07; Start 07/24/17 at 10:15 Nifedipine (Procardia) 20 mg Q8HR PO Last administered on 07/26/17 15:32; Start 07/24/17 at 14:00; Stop 07/26/17 at 22:46; Status DC Hydralazine HCl (Apresoline) 10 mg Q8HR PO Last administered on 07/30/17 06:35 ; Start 07/24/17 at 14:00 Isosorbide Dinitrate (Isordil) 10 mg Q8HR PO Last administered on 07/30/17 06: 36; Start 07/24/17 at 14:00 Nitroglycerin (Nitroglycerin 2% Oint) 2 inch Q6HR PRN TOPICAL SBP>170, DBP>90; Start 07/24/17 at 10:15 Fluconazole (Diflucan) 100 mg Q24H PO Last administered on 07/29/17 14:42; Start 07/24/17 at 15:00; Stop 07/31/17 at 14:59 Nifedipine (Procardia) 20 mg Q8HR PO Last administered on 07/30/17 06:37; Start 07/26/17 at 23:00 Potassium Phosphate 30 mmol/ Sodium Chloride 260 ml @ 43.333 mls/ hr ONCE ONCE IV Last administered on 07/27/17 16:15; Start 07/27/17 at 13:00; Stop at 18:59; Status DC Potassium Phosphate (K-Phos) 1,000 mg Q12HR PO Last administered on 07/30/17 08:35; Start 07/27/17 at 11:15 Potassium Chloride (KCl) 40 meq DAILY PO Last administered on 07/30/17 08:34; Start 07/27/17 at 11:15 Lactobacillus Acidophilus (Lactinex) 1 tab TID PO Last administered on 08:34; Start 07/29/17 at 13:00 Magnesium Sulfate/ Dextrose 100 ml @ 100 mls/hr Q1H IV Last administered on 14:42; Start 07/29/17 at 12:15; Stop 07/29/17 at 14:14; Status DC Urinary Catheter: No Vascular Central Line Catheter: No Date of Insertion: Jul 29, 2017 Date of Removal: Jul 29, 2017 Line: PICC (MIDLINE ON RIGHT SIDE) Side: Right A/P Problem List: (1) Empyema ICD Code: J86.9 - Pyothorax without fistula (2) S/P Right Thoracotomy with Decortication (3) right locualted pleural effusion Assessment and Plan Assessment and Plan Neuro/Psych: Metabolic encephalopathy - resolved - Dilaudid when necessary for pain - Neuro checks per ICU protocol Respiratory: Right sided empyema/eczematous secondary to staph aureus Severe bilateral community-acquired pneumonia, with cavitation Acute hypoxic respiratory failure-resolved COPD exacerbation - s/p right VATS, mini thoracotomy, decortication 07/17 for organizing empyema. Chest tube discontinued 07/22 - CT chest initially revealed cavitating pneumonia involving right upper lobe and left lower lobe - Extubated 07/21/17 at 1500 and tolerating well - CXR: Repeat 07/22 every morning -Continue albuterol/ipratropium aerosols every 6 hours with albuterol aerosols every 2 hours. Dyspnea - On methylprednisolone 20 mg IV every 12 hours. Wean the prednisone 20 no grams by mouth daily today Cardiovascular: Septic shock- resolved. NSTEMI/Type II Demand Ischemia History of hypertension Pulmonary hypertension - Unlikely to be ACS. clinically has sepsis syndrome - On Lopressor 25mg Q12 and restarted Procardia 20 mg every 8 hours. Add hydralazine 10 mg every 8 hours and Isordil 10 mg every 8 hours. On Procardia XL 60 mg daily at home.- Monitor HR and BP keep MAP>65mmHg. IV labetalol and IV hydralazine when necessary for systolic blood pressure more than 160 -Echo 07/16 showed EF 50-55%, no vegetations. Small pericardial effusion. Mild pulmonary hypertension 42 mmHg Renal: Acute Kidney Injury- resolving. - Monitor renal function, I/O's, electrolytes replacement per protocol. FEN/GI: Acute protein calorie malnutrition- severe -Currently on nectar thickened liquids. - Famotidine for GI prophylaxis - Docusate sodium/senna 1 tablet twice a day for bowel regimen ID: Acute Community Acquired Pneumonia with MSSA Empyema Septic Shock- resolved UTI with lactobacillus - Continue cefazolin through 07/31 and switch to oral medication 3 weeks - monitor for signs of infections ( Fever, WBC) - ID-Dr. Luna - Pertinent cultures. sputum 07/11 MSSA , urine 07/11 lactobacillus - urine legionella and pneumococcal ag negative 07/11 - Multiple pleural fluid cultures MSSA Endocrine: Hyperglycemia of Critical Illness -- SSI Heme: Anemia Leukocytosis Monitor CBC, s/p transfusion 1unit PRBC 07/19 CBC today pending MSK: Stage I decubitus ulcer Wound care evaluate and treat and follow recommendations Prophylaxis: GI Prophylaxis Famotidine DVT Prophylaxis -- SCDs SQH Lines: Peripheral IV. NEEDS PT AND OT AND SPEECH THERAPY DW RN AND PT PT IS CONFUSED OK FOR MED/SURG TELE NEAR RN STATION NEEDS SAFE PLACE FOR DISCHARGE DW CASE MANAGEMENT AM LABS CONTINUE PT 7 DAYS A WEEK CONTINUE OT DW PATIENT AND RN CONTINUE ANTIBIOTICS PER ID ON ROCEPHIN DAILY THRU AUG 06 THEN KEFLEX HAD MIDLINE PLACE 07-29 HYPOMAG REPLACE 2 GRAMS AM LABS NOT MOBILE YET Discharge Planning WILL NEED PLACEMENT Gee Orourke DO Jul 30, 2017 11:59
[2017-07-30] MEDS: FLUCONAZOLE 100 MG TAB PO SCH (13:58)
[2017-07-30] MEDS: BETHANECHOL CHL 25 MG TAB PO SCH ×2 (14:46→17:55)
--- NOTE | 2017-07-30 17:04 | HHI.IDPN ---
Subjective Subjective Remarks Patient is a 66-year-old female, brought into the hospital for evaluation of respiratory distress. apparently noted increasing shortness of breath. EMS was called, and now she was in respiratory distress, and was intubated. In the ER she was hypotensive, and was given fluid resuscitation and pressors. Patient has remained on the vent. She is afebrile. Her initial WBC was 60, 000. Her creatinine was also elevated. Her chest x-ray showed bilateral infiltrates, and she eventually had placement of a chest tube on the right side yesterday. Fluid analysis is showing empyema. Patient's hemodynamics have improved, and she is off pressors. Her creatinine is also improving. Her WBC is also improving. A sputum culture was done and it has MSSA. Legionella and pneumococcal antigen are negative. Infectious disease consultation has been requested to evaluate the patient. Notes reviewed Temps ok Has loose stool C Diff negative Patient not ambulatory per PT - difficult to do outpatient IV Abx in infusion clinic No payor source for home health pf SNF Sats ok All C/S with MSSA Antibiotics Ancef Lines Midline 07/29 Past Medical History Arthritis Anxiety Hypertension Bronchitis COPD Back pain Ulcers Past Surgical History Hysterectomy Back surgeries TENS unit removed from back Allergies: Coded Allergies: penicillin G (Unverified Allergy, Intermediate, Hives, 07/11/17) Sulfa (Sulfonamide Antibiotics) (Unverified Allergy, Unknown, 07/11/17) Objective . Vital Signs Date Time Temp Pulse Resp B/P (MAP) Pulse Ox O2 Delivery O2 Flow Rate FiO2 07/30/17 11:13 97.3 84 20 149/91 (110) 95 07/30/17 08:27 Room Air 07/30/17 08:25 83 20 154/82 (106) 95 07/30/17 08:00 68 07/30/17 05:15 98.4 69 16 167/98 (121) 95 07/30/17 00:04 97.5 68 16 156/77 (103) 96 07/29/17 23:09 73 147/84 (105) 07/29/17 21:30 97.2 73 16 164/99 (120) 97 Automatic Cuff 07/29/17 20:00 82 07/29/17 20:00 Room Air 07/30/17 07/30/17 07/31/17 15:00 23:00 07:00 Intake Total 50 ml Balance 50 ml IV Total 50 ml . Laboratory Tests Test 07/30/17 06:43 White Blood Count 9.6 TH/MM3 Red Blood Count 3.65 MIL/MM3 Hemoglobin 9.9 GM/DL Hematocrit 30.2 % Mean Corpuscular Volume 82.8 FL Mean Corpuscular Hemoglobin 27.3 PG Mean Corpuscular Hemoglobin Concent 32.9 % Red Cell Distribution Width 20.2 % Platelet Count 283 TH/MM3 Mean Platelet Volume 7.0 FL Neutrophils (%) (Auto) 71.2 % Lymphocytes (%) (Auto) 19.3 % Monocytes (%) (Auto) 4.7 % Eosinophils (%) (Auto) 4.0 % Basophils (%) (Auto) 0.8 % Neutrophils # (Auto) 6.8 TH/MM3 Lymphocytes # (Auto) 1.8 TH/MM3 Monocytes # (Auto) 0.5 TH/MM3 Eosinophils # (Auto) 0.4 TH/MM3 Basophils # (Auto) 0.1 TH/MM3 CBC Comment DIFF FINAL Differential Comment Laboratory Tests Test 07/30/17 06:43 Blood Urea Nitrogen 11 MG/DL Creatinine 0.53 MG/DL Random Glucose 83 MG/DL Total Protein 6.7 GM/DL Albumin 2.6 GM/DL Calcium Level 8.1 MG/DL Phosphorus Level 3.0 MG/DL Magnesium Level 2.2 MG/DL Alkaline Phosphatase 125 U/L Aspartate Amino Transf (AST/SGOT) 10 U/L Alanine Aminotransferase (ALT/SGPT) LESS THAN 6 U/L Total Bilirubin 0.4 MG/DL Sodium Level 141 MEQ/L Potassium Level 3.8 MEQ/L Chloride Level 112 MEQ/L Carbon Dioxide Level 21.5 MEQ/L Anion Gap 8 MEQ/L Estimat Glomerular Filtration Rate 116 ML/MIN Imaging Chest X-Ray 07/22/17 0000 Signed Impressions: Service Date/Time: Saturday, July 22, 2017 02:51 - CONCLUSION: Unchanged exam. No pneumothorax. Bilateral parenchymal opacities. Cassius Tijerina Jr., MD Chest X-Ray 07/18/17 0000 Signed Impressions: Service Date/Time: Tuesday, July 18, 2017 07:43 - CONCLUSION: 1. Persistent prominent areas of consolidation in the right upper lobe, left lower lung, and to lesser degree right lower lung. The right upper lobe consolidation appears cavitary. 2. New right-sided chest tube. A pneumothorax is not seen. 3. ET tube, NG tube and left subclavian line are well placed. Moustapha Faulkner MD Chest X-Ray 07/16/17 0600 Signed Impressions: Service Date/Time: July 04:31 - CONCLUSION: 1. Bilateral patchy airspace disease with some improved aeration in the bases. 2. Persistent bilateral pleural effusions, right greater than left. Right-sided thoracostomy tube laterally in the lower chest is unchanged. Remaining support tubes are also stable in position. Ken Teran MD Chest CT 07/15/17 0000 Signed Impressions: Service Date/Time: Saturday, July 15, 2017 11:25 - CONCLUSION: 1. There are extensive pleural and parenchymal changes. There are densely consolidated areas cavitation involving the right upper lobe and posterior aspect of the left lower lobe concerning for cavitary areas of pneumonia. 2. There are bilateral pleural effusions. The effusion effusions are small in size. There is considerable consolidated lung in the lung bases bilaterally. 3. Old, healed posterior rib fractures on the left. 4. Small pericardial effusion. Kendall Corona MD Physical Exam GENERAL: awake, NAD, looks weak SKIN: Cool and dry. Has hypopigmented macules in her UE and LE. Still mottled skin EYES: [place] conjunctiva. No petechia or hemorrhage. Pupils equal, round and reactive to light. No scleral icterus. No injection or drainage. EARS, NOSE AND THROAT: Nose without bleeding or purulent nasal discharge. NECK: Trachea midline. Supple and not tender, no meningeal signs CARDIOVASCULAR: Distant heart sounds. Regular rate and rhythm. RESPIRATORY: Coarse breath sounds bilaterally, has few rhonchi nicky ABDOMEN: Soft, nondistended, but no guarding appreciated. Bowel sounds present and normoactive. No organomegaly. EXTREMITIES: No clubbing. Has mottling in both feet and hands, cold. Mild pedal edema. NEUROLOGICAL: Awake PSYCHIATRIC: cooperative currently LINE: no evidence of infection Assessment & Plan Remarks IMPRESSION Sepsis with shock on presentation due to CAP, resolved - hemodynamics better, off pressors Community acquired PNA, wih abscess and with empyema - sputum C/S MSSA - fluid C/S with Staph aureus - S/P mini-thoracotomy Leukocytosis, better Renal insufficiency due to sepsis, and hypotension, improving Respiratory failure, tolerating extubation Hx COPD, smoker Candiduria Encephalopathy Diarrhea, C diff negative RECOMMENDATION Continue Ancef CXR stable cavitary lesion Will give total 4 weeks IV Abx, then oral Abx x 2-3 weeks Arrange for D/C and get IV Rocephin until Aug 06 - if she could do at outpatient infusion clinic - then po Keflex 500 QID x 3 weeks Continue Diflucan - 7 days Continue Lactinex CM working on D/C Patient is clear for D/C from ID standpoint D/W Holly Cheatham MD Jul 30, 2017 17:04
--- NOTE | 2017-07-30 18:05 | PD.WCN.NOT ---
Wound Consult Description: Patient seen for follow up of DTI to sacral area Communicated with: EMILY ellington and spoke with Doctor Orourke and received telephone order fore dressing changes Recommendation: Please cleanse unstageable pressure injury to R buttock and sacral area with normal saline only. Apply sylvester thick coverage of santyl ointment to wound bed on R buttock and sacral area and cover with Slightly moistened Maxorb II ( Calcium alginate) dressing. Cover with ABD pad secured with tape or cover with bordered gauze. Please apply skin prep to periwound before applying adhesive to skin.Please change dressing daily Keep patient positioned from side to side do not position on back. Additional Information: Patient seen on for follow up of DTI to sacral area. Positioned patient to R side for wound assessment with the assistance of EMILY ellington. To reveal unstageable wound to sacral area that extends to R buttock. Wound measures 4.9cm x 3cm x slough. Wound bed is noted with ~80% coverage of yellow adherent slough and ~20% pink tissue.Cleansed wound with normal saline and left open to air for now.EMILY ellington to place dressing once supplies are obtained and Santyl ointment is ordered.Patient is laying on advanced 4 bed. Two ultrasorb pads in staggered fashion are underneath patient. Patient positioned to R side with pillows in place for support. Rosalia Villarreal [facility] Jul 30, 2017 18:05
[2017-07-30] MEDS: COLLAGENASE OINT 30 GM TUBE TOPICAL SCH (21:16)
[2017-07-31 00:12] VITALS: BP 151/90; PULSE 70; RESP 20; TEMP 97.8; O2SAT 96
[2017-07-31] MEDS: BETHANECHOL CHL 25 MG TAB PO SCH ×4 (00:31→17:10)
[2017-07-31] MEDS: HYDROmorphone HCL PF 1 MG/ML VIAL IV PUSH PRN ×5 (01:25→19:48)
[2017-07-31] MEDS: ONDANSETRON HCL 4 MG/2 ML VIAL IV PUSH PRN ×2 (01:25→19:48)
[2017-07-31] MEDS: ceFAZolin 2 GM PREMIX 50 ML IV SCH ×3 (01:25→17:10)
[2017-07-31] MEDS: CHLORHEXIDINE GLUCONATE 2 % 1 PACK (2 CLOTHS) TOP SCH (03:46)
[2017-07-31 04:00] VITALS: BP 148/86; PULSE 69; RESP 20; TEMP 98.6; O2SAT 100
[2017-07-31] MEDS: NIFEdipine 10 MG CAP PO SCH ×3 (05:22→22:05)
[2017-07-31] MEDS: ISOSORBIDE DINITRATE 10 MG TAB PO SCH ×3 (05:23→22:05)
[2017-07-31] MEDS: hydrALAZINE HCL 10 MG TAB PO SCH ×3 (05:23→22:05)
[2017-07-31] MEDS: INSULIN NovoLIN REGULAR SUPPLEMENTAL SCALE SQ SCH ×4 (07:59→19:50)
[2017-07-31 08:00] VITALS: BP 117/69; PULSE 66; PULSE 73; RESP 18; TEMP 97.3; O2SAT 95
[2017-07-31] MEDS: CHLORHEXIDINE 0.12% (ORAL KIT) 15 ML CUP MT SCH ×2 (08:00→19:49)
[2017-07-31] MEDS: METOPROLOL TARTRATE 25 MG TAB PO SCH ×2 (08:03→19:48)
[2017-07-31] MEDS: POTASSIUM CHLORIDE 10 MEQ CONTROLLED RELEASE TAB PO SCH (08:03)
[2017-07-31] MEDS: FAMOTIDINE 20 MG TAB PO SCH ×2 (08:03→19:49)
[2017-07-31] MEDS: LACTOBACILLUS ACIDOPHILUS TAB PO SCH ×3 (08:04→17:10)
[2017-07-31] MEDS: predniSONE 20 MG TAB PO SCH (08:04)
[2017-07-31] MEDS: SODIUM CHLORIDE 0.9% FLUSH 10 ML FLUSH IV FLUSH SCH ×2 (08:04→19:49)
[2017-07-31] MEDS: DOCUSATE SODIUM 50 MG/SENNA 8.6 MG TAB PO SCH ×2 (08:04→19:50)
[2017-07-31] MEDS: POTASSIUM PHOSPHATE MONOBASIC 500 MG TAB PO SCH ×2 (08:04→19:49)
[2017-07-31] MEDS: COLLAGENASE OINT 30 GM TUBE TOPICAL SCH (08:08)
[2017-07-31 08:38] LABS: AUTOMATED NEUTROPHIL # 6.9 TH/MM3 (1.8-7.7); BASOPHIL # 0.1 TH/MM3 (0-0.2); BASOPHIL % 0.9 % (0.0-2.0); EOSINOPHIL # 0.6 TH/MM3 (0-0.4); EOSINOPHIL % 5.8 % (0.0-4.0); HEMATOCRIT 32.2 % (35.0-46.0); HEMO FLAGS DIFF FINAL; LYMPH % 20.2 % (9.0-44.0); MEAN CELL VOLUME 84.6 FL (80.0-100.0); MEAN CORPUSCULAR HEMOGLOBIN 28.2 PG (27.0-34.0); MEAN CORPUSCULAR HGB CONC 33.3 % (32.0-36.0); MONO % 5.3 % (0.0-8.0); NEUT % 67.8 % (16.0-70.0); PLATELET COUNT 236 TH/MM3 (150-450); RED BLOOD COUNT 3.81 MIL/MM3 (4.00-5.30); RED CELL DISTRIBUTION WIDTH 20.6 % (11.6-17.2); WHITE BLOOD COUNT 10.1 TH/MM3 (4.0-11.0)
[2017-07-31 08:56] LABS: ALT (GPT) 8 U/L (10-53); ANION GAP 7 MEQ/L (5-15); AST (GOT) 9 U/L (15-37); BICARBONATE 20.8 MEQ/L (21.0-32.0); BLOOD UREA NITROGEN 18 MG/DL (7-18); CHLORIDE 111 MEQ/L (98-107); GLOMERULAR FILTRATION RATE 107 ML/MIN (>89); MAGNESIUM 1.9 MG/DL (1.5-2.5); POTASSIUM 4.1 MEQ/L (3.5-5.1); SODIUM (NA) 139 MEQ/L (136-145)
[2017-07-31 08:59] LABS: ALKALINE PHOSPHATASE 122 U/L (45-117); TOTAL BILIRUBIN ADULT 0.3 MG/DL (0.2-1.0)
--- NOTE | 2017-07-31 11:13 | HHI.PR ---
Subjective Remarks 66-year-old female with history of COPD, hypertension, presents to the ER tbrought in by EMS after called stating that his was having respiratory issues. She was found in respiratory distress, GCS 6, and was intubated by EMS for airway protection. They state that she initially sounded like she had rales bilaterally. She is not able to give me any further history. They found that her blood pressure was 70 systolic and started her on IV fluids and Levophed. 07/12: still on vasopressors. weaning fio2. remains in shock. mental status still poor, although now purposeful. renal function slowly improving, although remains severely oliguric. 07/13: clinically starting to improve. off vasopressors. fio2 improving. cultures still no growth to date. renal function also improving. 07/14: Remains intubated sedated, encephalopathic. Failed SBT due to tachypnea. UO 2.3 L in 24 hours. On sedation hold do not follow commands. Get CT chest to evaluate loculated effusion 07/15: R pigtail chest tube placed yesterday and 07/14/17. Fluid had appearance of early empyema (yellow cloudy). Pleural fluid studies shows WBC count of 32, 227 with 93% neutrophils. Fluid LDH is 2587 (serum LDH 143) fluid glucose is 44 (serum 158). CTS and ID consulted 07/16: Remains intubated sedated, on sedation hold patient becomes tachypneic. CTS consulted for right empyema. Patient is scheduled for right video-assisted thoracoscopy, with possible thoracotomy by Dr. Carpio 07/17/17. ID also following. CT chest from yesterday shows right upper lobe lobe and left lower lobe cavitating pneumonia, bilateral small effusions. Remains critically ill but stabilizing 07/17 Patient is sedated and intubated. Afebrile. For right VATS/thoracotomy and pleurodesis today. 07/18 Patient s/p mini thoracotomy, right VATS, decortication yesterday. Remains sedated with Diprivan. Fentanyl and intubated. Afebrile. 07/19 No events overnight. Patient did not tolerate CPAP trials yesterday as she became tachypneic, tachycardic and hypertensive. Sedated with Diprivan and Fentanyl drips. 07/20 Patient remains sedated with Diprivan, fentanyl and intubated. Afebrile. 07/21 No events overnight. Sedated and intubated. Tolerated CPAP for several hrs yesterday. Afebrile. 07/22: Extubated yesterday tolerating well. Failed swallow eval yesterday repeat today. CT surgery planning on chest tube removal today. BP elevated, getting when necessary labetalol and hydralazine IV 07/23: Resting comfortably in no acute distress. On room air. Tolerating nectar thickened diet. Linares placement removed today. Restarting Procardia today 07/24: Receiving as needed labetalol for hypertension. Urinary retention noted. On room air. Complaining of pain in right upper extremity. 07/25 PATIENT TRANSFERRED TO OUR SERVICE TODAY DW RN AND PT [place] VERY CONFUSED 07-26 STILL CONFUSED BUT LESS THAN YESTERDAY DW RN AND PT CAN MOVE TO MED/SURG TELE FLOOR PT AND OT INCREASE ACTIVITY 07-27 much more awake and alert but still confused Wants "thick coffee" Is not on a thickened diet probably meant to say strong coffee Discussed with patient and RN 07-28 NOT CONFUSED TODAY STATES LIVES WITH A IN A HOUSE DW RN AND PT 07-29 HAD MIDLINE PLACED TODAY IS NOT AMBULATORY AT THIS TIME NEEDS TO WORK WITH PT AND OT 07-30 NEEDS TO WORK WITH PT AND OT NOT AMBULATORY YET STATES NOT A GOOD DAY TODAY NO SOB, NO CHEST PAIN DW RN 07-31 HAS LARGE DECUBITI UNSTAGABLE -DW WOUND RN NO SOB, NO CHEST PAIN LUNGS STILL COARSE NOT MOBILE NEEDS TO BE MOBILE TO GO HOME Objective Vitals Vital Signs Date Time Temp Pulse Resp B/P (MAP) Pulse Ox O2 Delivery O2 Flow Rate FiO2 07/31/17 08:00 97.3 73 18 117/69 (85) 95 07/31/17 08:00 66 07/31/17 07:45 Room Air 07/31/17 04:00 Room Air 07/31/17 04:00 98.6 69 20 148/86 (106) 100 07/31/17 00:12 97.8 70 20 151/90 (110) 96 07/31/17 00:00 Room Air 07/30/17 20:00 Room Air 07/30/17 20:00 97.1 88 20 169/77 (107) 95 07/30/17 20:00 79 07/30/17 16:00 97.3 71 18 142/81 (101) 97 07/30/17 12:00 97.8 68 18 173/90 (117) 98 07/30/17 11:13 97.3 84 20 149/91 (110) 95 I/O 07/30/17 07/30/17 07/30/17 07/31/17 07/31/17 07/31/17 07:00 15:00 23:00 07:00 15:00 23:00 Intake Total 240 ml 50 ml 650 ml 240 ml 50 ml Output Total 0 ml Balance 240 ml 50 ml 650 ml 240 ml 50 ml Intake Oral 240 ml 600 ml 240 ml IV Total 50 ml 50 ml 50 ml Output Urine Total 0 ml # Voids 1 1 4 # Bowel Movements 0 0 1 Result Diagram: 07/31/17 0812 07/31/17 0812 Other Results Laboratory Tests Test 07/29/17 14:45 07/30/17 06:43 07/31/17 08:12 Stool C. difficile Toxin (PCR) NEGATIVE Stl C. difficile Toxin Epiderm 027 PRESUMPTIVE NEGATIVE White Blood Count 9.6 TH/MM3 10.1 TH/MM3 Red Blood Count 3.65 MIL/MM3 3.81 MIL/MM3 Hemoglobin 9.9 GM/DL 10.7 GM/DL Hematocrit 30.2 % 32.2 % Mean Corpuscular Volume 82.8 FL 84.6 FL Mean Corpuscular Hemoglobin 27.3 PG 28.2 PG Mean Corpuscular Hemoglobin Concent 32.9 % 33.3 % Red Cell Distribution Width 20.2 % 20.6 % Platelet Count 283 TH/MM3 236 TH/MM3 Mean Platelet Volume 7.0 FL 7.6 FL Neutrophils (%) (Auto) 71.2 % 67.8 % Lymphocytes (%) (Auto) 19.3 % 20.2 % Monocytes (%) (Auto) 4.7 % 5.3 % Eosinophils (%) (Auto) 4.0 % 5.8 % Basophils (%) (Auto) 0.8 % 0.9 % Neutrophils # (Auto) 6.8 TH/MM3 6.9 TH/MM3 Lymphocytes # (Auto) 1.8 TH/MM3 2.0 TH/MM3 Monocytes # (Auto) 0.5 TH/MM3 0.5 TH/MM3 Eosinophils # (Auto) 0.4 TH/MM3 0.6 TH/MM3 Basophils # (Auto) 0.1 TH/MM3 0.1 TH/MM3 CBC Comment DIFF FINAL DIFF FINAL Differential Comment Blood Urea Nitrogen 11 MG/DL 18 MG/DL Creatinine 0.53 MG/DL 0.57 MG/DL Random Glucose 83 MG/DL 84 MG/DL Total Protein 6.7 GM/DL 6.6 GM/DL Albumin 2.6 GM/DL 2.6 GM/DL Calcium Level 8.1 MG/DL 8.3 MG/DL Phosphorus Level 3.0 MG/DL 2.9 MG/DL Magnesium Level 2.2 MG/DL 1.9 MG/DL Alkaline Phosphatase 125 U/L 122 U/L Aspartate Amino Transf (AST/SGOT) 10 U/L 9 U/L Alanine Aminotransferase (ALT/SGPT) LESS THAN 6 U/L 8 U/L Total Bilirubin 0.4 MG/DL 0.3 MG/DL Sodium Level 141 MEQ/L 139 MEQ/L Potassium Level 3.8 MEQ/L 4.1 MEQ/L Chloride Level 112 MEQ/L 111 MEQ/L Carbon Dioxide Level 21.5 MEQ/L 20.8 MEQ/L Anion Gap 8 MEQ/L 7 MEQ/L Estimat Glomerular Filtration Rate 116 ML/MIN 107 ML/MIN Imaging Last Impressions Chest X-Ray 07/27/17 0000 Signed Impressions: Service Date/Time: Thursday, July 27, 2017 11:28 - CONCLUSION: Cavitary mass right upper lobe is unchanged. Please see above. Ronaldo Juárez MD Chest CT 07/15/17 0000 Signed Impressions: Service Date/Time: Saturday, July 15, 2017 11:25 - CONCLUSION: 1. There are extensive pleural and parenchymal changes. There are densely consolidated areas cavitation involving the right upper lobe and posterior aspect of the left lower lobe concerning for cavitary areas of pneumonia. 2. There are bilateral pleural effusions. The effusion effusions are small in size. There is considerable consolidated lung in the lung bases bilaterally. 3. Old, healed posterior rib fractures on the left. 4. Small pericardial effusion. Kendall Corona MD Objective Remarks GENERAL: 66-year-old female resting in bed in no acute distress SKIN: Warm and dry. Stage I decubitus ulcer HEAD: Atraumatic. Normocephalic. EYES: Pupils equal and round. No scleral icterus. No injection or drainage. EOMI ENT: No nasal bleeding or discharge. Mucous membranes pink and moist. TONGUE MIDLINE NECK: Trachea midline. No JVD. SUPPLE CARDIOVASCULAR: Regular rate and rhythm. S1, S2 no S3 OR S4. RESPIRATORY: Coarse RHONCHI breath sounds appreciated bilaterally. No wheezing GASTROINTESTINAL: Abdomen soft, non-tender, nondistended. Hepatic and splenic margins not palpable. MUSCULOSKELETAL: Extremities with trace bilateral lower extremity edema. 1+ left upper extremity edema.. NEUROLOGICAL: Awake and alert. No obvious cranial nerve deficits. Motor grossly within normal limits. 4 out of 5 muscle strength in the arms and legs. Normal speech. PSYCHIATRIC: INAppropriate mood and affect; insight and judgment ABnormal. Procedures - s/p right VATS, mini thoracotomy, decortication 07/17 for organizing empyema. cc: Viraj Carpio MD Operative Report Date of Surgery: Jul 17, 2017 Preoperative Diagnosis: Postoperative Diagnosis: Procedure: 1. Right Video Assisted Thoracoscopic Surgery (VATS) 2. Right Posterolateral Muscle Sparing Mini-Thoracotomy 3. Decortication 4. Intercostal Nerve Block Surgeon: Viraj Carpio Water Quality Specialist(s): Danny Sargent Operation and Findings: PREOPERATIVE DIAGNOSIS 1. Right Organized Empyema 2. Loculated Abscess Cavities 3. Pneumonia 4. Respiratory Failure POSTOPERATIVE DIAGNOSIS same PROCEDURES 1. Right Video Assisted Thoracoscopic Surgery (VATS) 2. Right Posterolateral Muscle Sparing Mini-Thoracotomy 3. Decortication 4. Intercostal Nerve Block SURGEON Viraj Carpio MD Medications and IVs Laboratory Tests Test 07/29/17 14:45 07/30/17 06:43 07/31/17 08:12 Stool C. difficile Toxin (PCR) NEGATIVE Stl C. difficile Toxin Epiderm 027 PRESUMPTIVE NEGATIVE White Blood Count 9.6 TH/MM3 10.1 TH/MM3 Red Blood Count 3.65 MIL/MM3 3.81 MIL/MM3 Hemoglobin 9.9 GM/DL 10.7 GM/DL Hematocrit 30.2 % 32.2 % Mean Corpuscular Volume 82.8 FL 84.6 FL Mean Corpuscular Hemoglobin 27.3 PG 28.2 PG Mean Corpuscular Hemoglobin Concent 32.9 % 33.3 % Red Cell Distribution Width 20.2 % 20.6 % Platelet Count 283 TH/MM3 236 TH/MM3 Mean Platelet Volume 7.0 FL 7.6 FL Neutrophils (%) (Auto) 71.2 % 67.8 % Lymphocytes (%) (Auto) 19.3 % 20.2 % Monocytes (%) (Auto) 4.7 % 5.3 % Eosinophils (%) (Auto) 4.0 % 5.8 % Basophils (%) (Auto) 0.8 % 0.9 % Neutrophils # (Auto) 6.8 TH/MM3 6.9 TH/MM3 Lymphocytes # (Auto) 1.8 TH/MM3 2.0 TH/MM3 Monocytes # (Auto) 0.5 TH/MM3 0.5 TH/MM3 Eosinophils # (Auto) 0.4 TH/MM3 0.6 TH/MM3 Basophils # (Auto) 0.1 TH/MM3 0.1 TH/MM3 CBC Comment DIFF FINAL DIFF FINAL Differential Comment Blood Urea Nitrogen 11 MG/DL 18 MG/DL Creatinine 0.53 MG/DL 0.57 MG/DL Random Glucose 83 MG/DL 84 MG/DL Total Protein 6.7 GM/DL 6.6 GM/DL Albumin 2.6 GM/DL 2.6 GM/DL Calcium Level 8.1 MG/DL 8.3 MG/DL Phosphorus Level 3.0 MG/DL 2.9 MG/DL Magnesium Level 2.2 MG/DL 1.9 MG/DL Alkaline Phosphatase 125 U/L 122 U/L Aspartate Amino Transf (AST/SGOT) 10 U/L 9 U/L Alanine Aminotransferase (ALT/SGPT) LESS THAN 6 U/L 8 U/L Total Bilirubin 0.4 MG/DL 0.3 MG/DL Sodium Level 141 MEQ/L 139 MEQ/L Potassium Level 3.8 MEQ/L 4.1 MEQ/L Chloride Level 112 MEQ/L 111 MEQ/L Carbon Dioxide Level 21.5 MEQ/L 20.8 MEQ/L Anion Gap 8 MEQ/L 7 MEQ/L Estimat Glomerular Filtration Rate 116 ML/MIN 107 ML/MIN Vascular Central Line Catheter: Yes Date of Insertion: Jul 29, 2017 Date of Removal: Jul 29, 2017 Line: PICC (MIDLINE ON RIGHT SIDE) Side: Right A/P Problem List: (1) Empyema ICD Code: J86. - Pyothorax without fistula (2) S/P Right Thoracotomy with Decortication (3) right locualted pleural effusion Assessment and Plan Assessment and Plan Neuro/Psych: Metabolic encephalopathy - resolved - Dilaudid when necessary for pain - Neuro checks per ICU protocol Respiratory: Right sided empyema/eczematous secondary to staph aureus Severe bilateral community-acquired pneumonia, with cavitation Acute hypoxic respiratory failure-resolved COPD exacerbation - s/p right VATS, mini thoracotomy, decortication 07/17 for organizing empyema. Chest tube discontinued 07/22 - CT chest initially revealed cavitating pneumonia involving right upper lobe and left lower lobe - Extubated 07/21/17 at 1500 and tolerating well - CXR: Repeat 07/22 every morning -Continue albuterol/ipratropium aerosols every 6 hours with albuterol aerosols every 2 hours. Dyspnea - On methylprednisolone 20 mg IV every 12 hours. Wean the prednisone 20 no grams by mouth daily today Cardiovascular: Septic shock- resolved. NSTEMI/Type II Demand Ischemia History of hypertension Pulmonary hypertension - Unlikely to be ACS. clinically has sepsis syndrome - On Lopressor 25mg Q12 and restarted Procardia 20 mg every 8 hours. Add hydralazine 10 mg every 8 hours and Isordil 10 mg every 8 hours. On Procardia XL 60 mg daily at home.- Monitor HR and BP keep MAP>65mmHg. IV labetalol and IV hydralazine when necessary for systolic blood pressure more than 160 -Echo 07/16 showed EF 50-55%, no vegetations. Small pericardial effusion. Mild pulmonary hypertension 42 mmHg Renal: Acute Kidney Injury- resolving. - Monitor renal function, I/O's, electrolytes replacement per protocol. FEN/GI: Acute protein calorie malnutrition- severe -Currently on nectar thickened liquids. - Famotidine for GI prophylaxis - Docusate sodium/senna 1 tablet twice a day for bowel regimen ID: Acute Community Acquired Pneumonia with MSSA Empyema Septic Shock- resolved UTI with lactobacillus - Continue cefazolin through 07/31 and switch to oral medication 3 weeks - monitor for signs of infections ( Fever, WBC) - ID-Dr. Luna - Pertinent cultures. sputum 07/11 MSSA , urine 07/11 lactobacillus - urine legionella and pneumococcal ag negative 07/11 - Multiple pleural fluid cultures MSSA Endocrine: Hyperglycemia of Critical Illness -- SSI BETTER Heme: Anemia STABLE Leukocytosis STABLE Monitor CBC, s/p transfusion 1unit PRBC 07/19 MSK: decubitus ulcer Wound care evaluate and treat and follow recommendations Prophylaxis: GI Prophylaxis Famotidine DVT Prophylaxis -- SCDs SQH Lines: MIDLINE NEEDS PT AND OT AND SPEECH THERAPY DW RN AND PT PT IS CONFUSED OK FOR MED/SURG TELE NEAR RN STATION NEEDS SAFE PLACE FOR DISCHARGE DW CASE MANAGEMENT AM LABS CONTINUE PT 7 DAYS A WEEK CONTINUE OT DW PATIENT AND RN CONTINUE ANTIBIOTICS PER ID Will give total 4 weeks IV Abx, then oral Abx x 2-3 weeks Arrange for D/C and get IV Rocephin until Aug 06 - if she could do at outpatient infusion clinic - then po Keflex 500 QID x 3 weeks Continue Diflucan - 7 days Continue Lactinex HAD MIDLINE PLACE NOT MOBILE YET Discharge Planning Will give total 4 weeks IV Abx, then oral Abx x 2-3 weeks Arrange for D/C and get IV Rocephin until Aug 06 - if she could do at outpatient infusion clinic - then po Keflex 500 QID x 3 weeks Continue Diflucan - 7 days Continue Lactinex Gee Orourke DO Jul 31, 2017 11:13
[2017-07-31 12:00] VITALS: BP 147/82; PULSE 61; RESP 18; TEMP 97.5; O2SAT 96
[2017-07-31 16:00] VITALS: BP 131/77; PULSE 76; RESP 20; TEMP 98.6; O2SAT 96
[2017-07-31 20:00] VITALS: BP 159/84; PULSE 67; PULSE 74; RESP 16; TEMP 97.3; O2SAT 92
[2017-07-31] MEDS ORDERED: diphenhydrAMINE HCL 25 MG CAP PO ONE (23:30)
[2017-08-01] MEDS: BETHANECHOL CHL 25 MG TAB PO SCH ×5 (00:03→22:35)
[2017-08-01] MEDS: ceFAZolin 2 GM PREMIX 50 ML IV SCH ×3 (01:56→18:22)
[2017-08-01] MEDS: HYDROmorphone HCL PF 1 MG/ML VIAL IV PUSH PRN ×6 (01:56→22:36)
[2017-08-01] MEDS: CHLORHEXIDINE GLUCONATE 2 % 1 PACK (2 CLOTHS) TOP SCH (03:45)
[2017-08-01 04:00] VITALS: BP 179/83; PULSE 68; RESP 18; TEMP 98.1; O2SAT 96
[2017-08-01] MEDS: hydrALAZINE HCL 10 MG TAB PO SCH ×3 (05:41→21:06)
[2017-08-01] MEDS: ISOSORBIDE DINITRATE 10 MG TAB PO SCH ×3 (05:41→21:06)
[2017-08-01] MEDS: NIFEdipine 10 MG CAP PO SCH ×3 (06:00→21:06)
[2017-08-01 08:00] VITALS: BP 155/83; PULSE 54; PULSE 69; RESP 18; TEMP 97.2; O2SAT 93
[2017-08-01] MEDS: CHLORHEXIDINE 0.12% (ORAL KIT) 15 ML CUP MT SCH ×2 (08:00→20:00)
[2017-08-01] MEDS: INSULIN NovoLIN REGULAR SUPPLEMENTAL SCALE SQ SCH ×4 (08:00→21:00)
[2017-08-01] MEDS: COLLAGENASE OINT 30 GM TUBE TOPICAL SCH (09:00)
[2017-08-01] MEDS: POTASSIUM PHOSPHATE MONOBASIC 500 MG TAB PO SCH ×2 (09:15→21:07)
[2017-08-01] MEDS: METOPROLOL TARTRATE 25 MG TAB PO SCH ×2 (09:16→21:06)
[2017-08-01] MEDS: DOCUSATE SODIUM 50 MG/SENNA 8.6 MG TAB PO SCH ×2 (09:16→21:06)
[2017-08-01] MEDS: POTASSIUM CHLORIDE 10 MEQ CONTROLLED RELEASE TAB PO SCH (09:16)
[2017-08-01] MEDS: FAMOTIDINE 20 MG TAB PO SCH ×2 (09:16→21:06)
[2017-08-01] MEDS: predniSONE 20 MG TAB PO SCH (09:16)
[2017-08-01] MEDS: LACTOBACILLUS ACIDOPHILUS TAB PO SCH ×3 (09:50→18:00)
[2017-08-01] MEDS: SODIUM CHLORIDE 0.9% FLUSH 10 ML FLUSH IV FLUSH SCH ×2 (09:50→21:07)
[2017-08-01] MEDS ORDERED: INFLUENZA VIRUS VACCINE (QUADRIVALENT) 0.5 ML SYR IM ONE (10:00)
[2017-08-01] MEDS ORDERED: PNEUMOCOCCAL POLYVALENT INJ 25 MCG/0.5 ML SYR IM ONE (10:00)
[2017-08-01 12:00] VITALS: BP 171/83; PULSE 69; RESP 20; TEMP 98.3; O2SAT 97
[2017-08-01] MEDS: ONDANSETRON HCL 4 MG/2 ML VIAL IV PUSH PRN (14:20)
[2017-08-01 16:00] VITALS: BP 110/65; PULSE 82; RESP 18; TEMP 97.2; O2SAT 93
[2017-08-01 20:00] VITALS: BP 159/78; PULSE 69; PULSE 73; RESP 20; TEMP 97.7; O2SAT 93
--- NOTE | 2017-08-01 22:14 | HHI.PR ---
Subjective Remarks Patient seen today around noon. She says she is not feeling well in general. Denies any specific pain. Denies any chest pain or shortness of breath. Objective Vital Signs Date Time Temp Pulse Resp B/P (MAP) Pulse Ox O2 Delivery O2 Flow Rate FiO2 08/01/17 16:00 97.2 82 18 110/65 (80) 93 08/01/17 12:00 98.3 69 20 171/83 (112) 97 08/01/17 08:00 97.2 69 18 155/83 (107) 93 08/01/17 08:00 54 08/01/17 08:00 Room Air 08/01/17 04:00 98.1 68 18 179/83 (115) 96 08/01/17 04:00 Room Air 08/01/17 00:00 Room Air I/O 07/31/17 07/31/17 07/31/17 08/01/17 08/01/17 08/01/17 07:00 15:00 23:00 07:00 15:00 23:00 Intake Total 240 ml 530 ml 50 ml 50 ml 600 ml Balance 240 ml 530 ml 50 ml 50 ml 600 ml Intake Oral 240 ml 480 ml 600 ml IV Total 50 ml 50 ml 50 ml # Voids 4 3 3 2 # Bowel Movements 1 1 2 Result Diagram: 07/31/1781107/31/17811 Objective Remarks GENERAL: patient sitting up in bed. Generalized weakness. SKIN: Warm and dry. HEAD: Normocephalic. EYES: No scleral icterus. No injection or drainage. NECK: Supple, trachea midline. No JVD. CARDIOVASCULAR: Regular rate and rhythm without murmurs, gallops, or rubs. RESPIRATORY: Breath sounds equal bilaterally. No accessory muscle use. GASTROINTESTINAL: Abdomen soft, non-tender, nondistended. MUSCULOSKELETAL: No cyanosis, or edema. BACK: Nontender without obvious deformity. No CVA tenderness. A/P Assessment and Plan ==== 08/01/17 Vitals reviewed and acceptable. Continues on IV antibiotics until 08/06, after which she can do Keflex 500 mg 4 times a day for 3 weeks. PT recommends rehabilitation. Working on strengthening. -Continue antibiotics as per infectious disease. -Discussed with RN. Neuro/Psych: Metabolic encephalopathy - resolved - Dilaudid when necessary for pain - Neuro checks per ICU protocol Respiratory: Right sided empyema/eczematous secondary to staph aureus Severe bilateral community-acquired pneumonia, with cavitation Acute hypoxic respiratory failure-resolved COPD exacerbation - s/p right VATS, mini thoracotomy, decortication 07/17 for organizing empyema. Chest tube discontinued 07/22 - CT chest initially revealed cavitating pneumonia involving right upper lobe and left lower lobe - Extubated 07/21/17 at 1500 and tolerating well - CXR: Repeat 07/22 every morning -Continue albuterol/ipratropium aerosols every 6 hours with albuterol aerosols every 2 hours. Dyspnea - On methylprednisolone 20 mg IV every 12 hours. Wean the prednisone 20 no grams by mouth daily today Cardiovascular: Septic shock- resolved. NSTEMI/Type II Demand Ischemia History of hypertension Pulmonary hypertension - Unlikely to be ACS. clinically has sepsis syndrome - On Lopressor 25mg Q12 and restarted Procardia 20 mg every 8 hours. Add hydralazine 10 mg every 8 hours and Isordil 10 mg every 8 hours. On Procardia XL 60 mg daily at home.- Monitor HR and BP keep MAP>65mmHg. IV labetalol and IV hydralazine when necessary for systolic blood pressure more than 160 -Echo 07/16 showed EF 50-55%, no vegetations. Small pericardial effusion. Mild pulmonary hypertension 42 mmHg Renal: Acute Kidney Injury- resolving. - Monitor renal function, I/O's, electrolytes replacement per protocol. FEN/GI: Acute protein calorie malnutrition- severe -Currently on nectar thickened liquids. - Famotidine for GI prophylaxis - Docusate sodium/senna 1 tablet twice a day for bowel regimen ID: Acute Community Acquired Pneumonia with MSSA Empyema Septic Shock- resolved UTI with lactobacillus - Continue cefazolin through 08/06 and switch to oral medication 3 weeks - monitor for signs of infections ( Fever, WBC) - ID-Dr. Luna - Pertinent cultures. sputum 07/11 MSSA , urine 07/11 lactobacillus - urine legionella and pneumococcal ag negative 07/11 - Multiple pleural fluid cultures MSSA Endocrine: Hyperglycemia of Critical Illness -- SSI BETTER Heme: Anemia STABLE Leukocytosis STABLE Monitor CBC, s/p transfusion 1unit PRBC 07/19 MSK: decubitus ulcer Wound care evaluate and treat and follow recommendations Prophylaxis: GI Prophylaxis Famotidine DVT Prophylaxis -- SCDs [facility] Discharge Planning CONTINUE ANTIBIOTICS PER ID Will give total 4 weeks IV Abx, then oral Abx x 2-3 weeks Arrange for D/C and get IV Rocephin until Aug 06 - if she could do at outpatient infusion clinic - then po Keflex 500 QID x 3 weeks Continue Diflucan - 7 days -discharge due to self pay. Appreciate case management assistance. Wilfredo Freire MD Aug 01, 2017 22:14
[2017-08-02] MEDS: HYDROmorphone HCL PF 1 MG/ML VIAL IV PUSH PRN ×6 (02:36→22:33)
[2017-08-02] MEDS: ceFAZolin 2 GM PREMIX 50 ML IV SCH ×3 (02:36→17:39)
[2017-08-02 04:00] VITALS: BP 180/88; PULSE 69; RESP 20; TEMP 98.3; O2SAT 95
[2017-08-02] MEDS: CHLORHEXIDINE GLUCONATE 2 % 1 PACK (2 CLOTHS) TOP SCH (04:00)
[2017-08-02] MEDS: ISOSORBIDE DINITRATE 10 MG TAB PO SCH ×3 (06:29→21:35)
[2017-08-02] MEDS: NIFEdipine 10 MG CAP PO SCH ×3 (06:29→21:35)
[2017-08-02] MEDS: hydrALAZINE HCL 10 MG TAB PO SCH ×3 (06:29→21:29)
[2017-08-02] MEDS: BETHANECHOL CHL 25 MG TAB PO SCH ×4 (06:29→22:33)
[2017-08-02 07:58] LABS: AUTOMATED NEUTROPHIL # 7.8 TH/MM3 (1.8-7.7); BASOPHIL # 0.1 TH/MM3 (0-0.2); BASOPHIL % 0.5 % (0.0-2.0); EOSINOPHIL # 0.9 TH/MM3 (0-0.4); HEMATOCRIT 31.6 % (35.0-46.0); HEMO FLAGS DIFF FINAL; LYMPH % 20.9 % (9.0-44.0); LYMPHOCYTE # 2.5 TH/MM3 (1.0-4.8); MEAN CELL VOLUME 83.6 FL (80.0-100.0); MEAN CORPUSCULAR HEMOGLOBIN 26.9 PG (27.0-34.0); MEAN CORPUSCULAR HGB CONC 32.2 % (32.0-36.0); NEUT % 64.6 % (16.0-70.0); PLATELET COUNT 303 TH/MM3 (150-450); RED BLOOD COUNT 3.78 MIL/MM3 (4.00-5.30); RED CELL DISTRIBUTION WIDTH 19.8 % (11.6-17.2); WHITE BLOOD COUNT 12.1 TH/MM3 (4.0-11.0)
[2017-08-02 08:00] VITALS: PULSE 76
[2017-08-02] MEDS: INSULIN NovoLIN REGULAR SUPPLEMENTAL SCALE SQ SCH ×4 (08:00→21:00)
[2017-08-02] MEDS: CHLORHEXIDINE 0.12% (ORAL KIT) 15 ML CUP MT SCH ×2 (08:00→20:00)
[2017-08-02 08:24] LABS: BICARBONATE 20.4 MEQ/L (21.0-32.0); MAGNESIUM 1.8 MG/DL (1.5-2.5); POTASSIUM 4.2 MEQ/L (3.5-5.1)
[2017-08-02 08:30] VITALS: BP 138/82; PULSE 78; RESP 18; TEMP 97.6; O2SAT 94
[2017-08-02] MEDS: POTASSIUM PHOSPHATE MONOBASIC 500 MG TAB PO SCH ×2 (08:50→21:29)
[2017-08-02] MEDS: FAMOTIDINE 20 MG TAB PO SCH ×2 (08:50→21:29)
[2017-08-02] MEDS: LACTOBACILLUS ACIDOPHILUS TAB PO SCH ×3 (08:50→17:38)
[2017-08-02] MEDS: SODIUM CHLORIDE 0.9% FLUSH 10 ML FLUSH IV FLUSH SCH ×2 (08:51→21:29)
[2017-08-02] MEDS: DOCUSATE SODIUM 50 MG/SENNA 8.6 MG TAB PO SCH ×2 (08:51→21:00)
[2017-08-02] MEDS: METOPROLOL TARTRATE 25 MG TAB PO SCH ×2 (08:51→21:36)
[2017-08-02] MEDS: POTASSIUM CHLORIDE 10 MEQ CONTROLLED RELEASE TAB PO SCH (08:51)
[2017-08-02] MEDS: COLLAGENASE OINT 30 GM TUBE TOPICAL SCH (08:51)
[2017-08-02] MEDS: predniSONE 20 MG TAB PO SCH (08:51)
[2017-08-02 12:35] VITALS: BP 166/79; PULSE 73; RESP 18; TEMP 97.2; O2SAT 95
[2017-08-02] MEDS ORDERED: CHOLECALCIFEROL (VIT D3) 5000 UNIT CAP PO ONE (14:00)
[2017-08-02] MEDS ORDERED: ERGOCALCIFEROL (VIT D2) 50,000 UNIT CAP PO ONE (14:00)
[2017-08-02 16:58] VITALS: BP 138/76; PULSE 78; RESP 18; TEMP 97.8; O2SAT 96
--- NOTE | 2017-08-02 17:39 | HHI.PR ---
Subjective Remarks Patient seen this morning around 11 AM. She says that right-sided posterior thoracic pain slightly worse today. Denies any nausea or vomiting. Denies any anterior chest pain. Objective Vital Signs Date Time Temp Pulse Resp B/P (MAP) Pulse Ox O2 Delivery O2 Flow Rate FiO2 08/02/17 16:58 97.8 78 18 138/76 (96) 96 08/02/17 12:35 97.2 73 18 166/79 (108) 95 08/02/17 08:30 97.6 78 18 138/82 (100) 94 08/02/17 08:00 76 08/02/17 08:00 Room Air 08/02/17 04:00 98.3 69 20 180/88 (118) 95 08/02/17 04:00 Room Air 08/02/17 00:00 Room Air 08/01/17 20:00 97.7 73 20 159/78 (105) 93 08/01/17 20:00 69 08/01/17 20:00 Room Air I/O 08/01/17 08/01/17 08/01/17 08/02/17 08/02/17 08/02/17 07:00 15:00 23:00 07:00 15:00 23:00 Intake Total 50 ml 600 ml 600 ml Output Total 0 ml Balance 50 ml 600 ml 600 ml Intake Oral 600 ml 600 ml IV Total 50 ml Output Urine Total 0 ml # Voids 3 2 4 # Bowel Movements 2 3 2 Result Diagram: 08/02/17 0710 08/02/17 0710 Objective Remarks GENERAL: patient sitting up in bed. Generalized weakness. no change on exam SKIN: Warm and dry. HEAD: Normocephalic. EYES: No scleral icterus. No injection or drainage. NECK: Supple, trachea midline. No JVD. CARDIOVASCULAR: Regular rate and rhythm without murmurs, gallops, or rubs. RESPIRATORY: Breath sounds equal bilaterally. No accessory muscle use. GASTROINTESTINAL: Abdomen soft, non-tender, nondistended. MUSCULOSKELETAL: No cyanosis, or edema. BACK: Nontender without obvious deformity. No CVA tenderness. A/P Assessment and Plan ==== 08/02/17 //Leukocytosis. 12.1. No fevers or indication of infection. Repeat chest x- ray. Monitor closely. Vitals reviewed again and acceptable. Continues on IV antibiotics until 08/06, after which she can do Keflex 500 mg 4 times a day for 3 weeks. PT recommends rehabilitation. Working on strengthening. -Continue antibiotics as per infectious disease. -Discussed with RN. //Hypovitaminosis D. Extremely low vitamin D 4.5. Replace with 50,000 units today, can do weekly replacement or [id number] daily. Repeat in 2 months.. Neuro/Psych: Metabolic encephalopathy - resolved - Dilaudid when necessary for pain - Neuro checks per ICU protocol Respiratory: Right sided empyema/eczematous secondary to staph aureus Severe bilateral community-acquired pneumonia, with cavitation Acute hypoxic respiratory failure-resolved COPD exacerbation - s/p right VATS, mini thoracotomy, decortication 07/17 for organizing empyema. Chest tube discontinued 07/22 - CT chest initially revealed cavitating pneumonia involving right upper lobe and left lower lobe - Extubated 07/21/17 at 1500 and tolerating well - CXR: Repeat 07/22 every morning -Continue albuterol/ipratropium aerosols every 6 hours with albuterol aerosols every 2 hours. Dyspnea - On methylprednisolone 20 mg IV every 12 hours. Wean the prednisone 20 no grams by mouth daily today Cardiovascular: Septic shock- resolved. NSTEMI/Type II Demand Ischemia History of hypertension Pulmonary hypertension - Unlikely to be ACS. clinically has sepsis syndrome - On Lopressor 25mg Q12 and restarted Procardia 20 mg every 8 hours. Add hydralazine 10 mg every 8 hours and Isordil 10 mg every 8 hours. On Procardia XL 60 mg daily at home.- Monitor HR and BP keep MAP>65mmHg. IV labetalol and IV hydralazine when necessary for systolic blood pressure more than 160 -Echo 07/16 showed EF 50-55%, no vegetations. Small pericardial effusion. Mild pulmonary hypertension 42 mmHg Renal: Acute Kidney Injury- resolving. - Monitor renal function, I/O's, electrolytes replacement per protocol. FEN/GI: Acute protein calorie malnutrition- severe -Currently on nectar thickened liquids. - Famotidine for GI prophylaxis - Docusate sodium/senna 1 tablet twice a day for bowel regimen ID: Acute Community Acquired Pneumonia with MSSA Empyema Septic Shock- resolved UTI with lactobacillus - Continue cefazolin through 08/06 and switch to oral medication 3 weeks - monitor for signs of infections ( Fever, WBC) - ID-Dr. Luna - Pertinent cultures. sputum 07/11 MSSA , urine 07/11 lactobacillus - urine legionella and pneumococcal ag negative 07/11 - Multiple pleural fluid cultures MSSA //Hypovitaminosis D. Extremely low vitamin D 4.5. Replace with 50,000 units today, can do weekly replacement or 7497-7163 daily. Repeat in 2 months.. Endocrine: Hyperglycemia of Critical Illness -- SSI BETTER Heme: Anemia STABLE Leukocytosis STABLE Monitor CBC, s/p transfusion 1unit PRBC 07/19 MSK: decubitus ulcer Wound care evaluate and treat and follow recommendations Prophylaxis: GI Prophylaxis Famotidine DVT Prophylaxis -- SCDs [facility] Discharge Planning CONTINUE ANTIBIOTICS PER ID Will give total 4 weeks IV Abx, then oral Abx x 2-3 weeks Arrange for D/C and get IV Rocephin until Aug 06 - if she could do at outpatient infusion clinic - then po Keflex 500 QID x 3 weeks Continue Diflucan - 7 days -difficult discharge due to self pay. Appreciate case management assistance. Wilfredo Freire MD Aug 02, 2017 17:39
--- NOTE | 2017-08-02 19:05 | RADRPT ---
EXAM DATE/TIME: 08/02/2017 18:11 [facility] COMPARISON: CHEST SINGLE AP, July 27, 2017, 11:28. INDICATIONS : Shortness of breath. MEDICAL HISTORY : Cardiovascular disease. Sepsis. Chronic obstructive pulmonary disease. SURGICAL HISTORY : Fusion, cervical. ENCOUNTER: Subsequent ACUITY: 1 week PAIN SCORE: 0/10 LOCATION: Bilateral chest FINDINGS: One cavitary mass in the lateral right upper lung, patchy areas of interstitial infiltrate in the lef t mid and lower lung and lateral pleural thickening lower lateral right lung suggesting focal pleural effusion; all of these findings are similar to prior examination 07/27/17. The heart is normal size. Mild curvature of the thoracic spine convex towards the right. CONCLUSION: No new findings. Right cavitary mass, left lung infiltrates, and the right pleural effusion, stable from prior. Cassius Voss MD on August 02, 2017 at 19:03 Board Certified Radiologist. This report was verified electronically.
[2017-08-02 20:00] VITALS: BP 168/88; PULSE 75; RESP 18; TEMP 97.6; O2SAT 95
[2017-08-03] VITALS (10 sets, daily range): BP systolic 116–174; BP diastolic 63–99; PULSE 65–95; RESP 16–18; TEMP 97.2–98; O2SAT 94–98
[2017-08-03] MEDS: ceFAZolin 2 GM PREMIX 50 ML IV SCH ×3 (02:56→18:10)
[2017-08-03] MEDS: HYDROmorphone HCL PF 1 MG/ML VIAL IV PUSH PRN ×5 (02:57→20:18)
[2017-08-03] MEDS: CHLORHEXIDINE GLUCONATE 2 % 1 PACK (2 CLOTHS) TOP SCH (04:00)
[2017-08-03] MEDS: BETHANECHOL CHL 25 MG TAB PO SCH ×4 (05:33→23:24)
[2017-08-03] MEDS: ISOSORBIDE DINITRATE 10 MG TAB PO SCH ×3 (05:33→23:28)
[2017-08-03] MEDS: hydrALAZINE HCL 10 MG TAB PO SCH ×3 (05:33→23:25)
[2017-08-03] MEDS: NIFEdipine 10 MG CAP PO SCH ×3 (05:33→23:25)
[2017-08-03] MEDS: INSULIN NovoLIN REGULAR SUPPLEMENTAL SCALE SQ SCH ×4 (08:00→20:17)
[2017-08-03] MEDS: CHLORHEXIDINE 0.12% (ORAL KIT) 15 ML CUP MT SCH ×2 (08:00→20:00)
[2017-08-03] MEDS: POTASSIUM PHOSPHATE MONOBASIC 500 MG TAB PO SCH ×2 (11:00→20:15)
[2017-08-03] MEDS: POTASSIUM CHLORIDE 10 MEQ CONTROLLED RELEASE TAB PO SCH (11:00)
[2017-08-03] MEDS: SODIUM CHLORIDE 0.9% FLUSH 10 ML FLUSH IV FLUSH SCH ×2 (11:01→20:18)
[2017-08-03] MEDS: LACTOBACILLUS ACIDOPHILUS TAB PO SCH ×3 (11:01→18:00)
[2017-08-03] MEDS: predniSONE 20 MG TAB PO SCH (11:01)
[2017-08-03] MEDS: METOPROLOL TARTRATE 25 MG TAB PO SCH ×2 (11:01→20:15)
[2017-08-03] MEDS: DOCUSATE SODIUM 50 MG/SENNA 8.6 MG TAB PO SCH ×2 (11:01→20:15)
[2017-08-03] MEDS: FAMOTIDINE 20 MG TAB PO SCH ×2 (11:02→20:14)
--- NOTE | 2017-08-03 15:01 | HHI.PR ---
Subjective Remarks Patient seen today around 1 PM. She reports right-sided posterior chest pain continues. Denies any shortness breath. Denies any nausea or vomiting. Objective Vital Signs Date Time Temp Pulse Resp B/P (MAP) Pulse Ox O2 Delivery O2 Flow Rate FiO2 08/03/17 12:00 97.2 72 17 116/87 (97) 96 08/03/17 08:00 97.4 86 18 145/81 (102) 94 08/03/17 04:00 Room Air 08/03/17 04:00 97.5 68 18 174/95 (121) 94 08/03/17 00:00 Room Air 08/03/17 00:00 97.6 95 18 158/63 (94) 98 08/02/17 20:00 Room Air 08/02/17 20:00 97.6 75 18 168/88 (114) 95 08/02/17 16:58 97.8 78 18 138/76 (96) 96 I/O 08/02/17 08/02/17 08/02/17 08/03/17 08/03/17 08/03/17 07:00 15:00 23:00 07:00 15:00 23:00 Intake Total 600 ml Output Total 0 ml Balance 600 ml Intake Oral 600 ml Output Urine Total 0 ml # Voids 4 # Bowel Movements 3 2 4 Result Diagram: 08/02/1710 08/02/17709 Objective Remarks GENERAL: patient sitting up in bed. Patient has both knees bent, which is an improvement from yesterday. No change on exam SKIN: Warm and dry. HEAD: Normocephalic. EYES: No scleral icterus. No injection or drainage. NECK: Supple, trachea midline. No JVD. CARDIOVASCULAR: Regular rate and rhythm without murmurs, gallops, or rubs. RESPIRATORY: Breath sounds equal bilaterally. No accessory muscle use. GASTROINTESTINAL: Abdomen soft, non-tender, nondistended. MUSCULOSKELETAL: No cyanosis, or edema. BACK: Nontender without obvious deformity. No CVA tenderness. A/P Assessment and Plan ==== 08/03/17 //Leukocytosis. 12.1 yesterday. Follow-up labs which were ordered for this morning. -Discussed with infectious disease today. Continues on IV antibiotics until 08/06, after which she can do Keflex 500 mg 4 times a day for 3 weeks. PT recommends rehabilitation. Continues Working on strengthening. -Continue antibiotics as per infectious disease. //Hypovitaminosis D. Extremely low vitamin D 4.5 on 08/02.. Replace with 50, 000 units on 08/02, can do weekly replacement or [id number] daily. Repeat in 2 months.. Neuro/Psych: Metabolic encephalopathy - resolved - Dilaudid when necessary for pain - Neuro checks per ICU protocol Respiratory: Right sided empyema/eczematous secondary to staph aureus Severe bilateral community-acquired pneumonia, with cavitation Acute hypoxic respiratory failure-resolved COPD exacerbation - s/p right VATS, mini thoracotomy, decortication 07/17 for organizing empyema. Chest tube discontinued 07/22 - CT chest initially revealed cavitating pneumonia involving right upper lobe and left lower lobe - Extubated 07/21/17 at 1500 and tolerating well - CXR: Repeat 07/22 every morning -Continue albuterol/ipratropium aerosols every 6 hours with albuterol aerosols every 2 hours. Dyspnea - On methylprednisolone 20 mg IV every 12 hours. Wean the prednisone 20 no grams by mouth daily today Cardiovascular: Septic shock- resolved. NSTEMI/Type II Demand Ischemia History of hypertension Pulmonary hypertension - Unlikely to be ACS. clinically has sepsis syndrome - On Lopressor 25mg Q12 and restarted Procardia 20 mg every 8 hours. Add hydralazine 10 mg every 8 hours and Isordil 10 mg every 8 hours. On Procardia XL 60 mg daily at home.- Monitor HR and BP keep MAP>65mmHg. IV labetalol and IV hydralazine when necessary for systolic blood pressure more than 160 -Echo 07/16 showed EF 50-55%, no vegetations. Small pericardial effusion. Mild pulmonary hypertension 42 mmHg Renal: Acute Kidney Injury- resolving. - Monitor renal function, I/O's, electrolytes replacement per protocol. FEN/GI: Acute protein calorie malnutrition- severe -Currently on nectar thickened liquids. - Famotidine for GI prophylaxis - Docusate sodium/senna 1 tablet twice a day for bowel regimen ID: Acute Community Acquired Pneumonia with MSSA Empyema Septic Shock- resolved UTI with lactobacillus - Continue cefazolin through 08/06 and switch to oral medication 3 weeks - monitor for signs of infections ( Fever, WBC) - ID-Dr. Luna - Pertinent cultures. sputum 07/11 MSSA , urine 07/11 lactobacillus - urine legionella and pneumococcal ag negative 07/11 - Multiple pleural fluid cultures MSSA //Hypovitaminosis D. Extremely low vitamin D 4.5. Replace with 50,000 units today, can do weekly replacement or 7314-9171 daily. Repeat in 2 months.. Endocrine: Hyperglycemia of Critical Illness -- SSI BETTER Heme: Anemia STABLE Leukocytosis STABLE Monitor CBC, s/p transfusion 1unit PRBC 07/19 MSK: decubitus ulcer Wound care evaluate and treat and follow recommendations Prophylaxis: GI Prophylaxis Famotidine DVT Prophylaxis -- SCDs [facility] Discharge Planning CONTINUE ANTIBIOTICS PER ID Will give total 4 weeks IV Abx, then oral Abx x 2-3 weeks Arrange for D/C and get IV Rocephin until Aug 06 - if she could do at outpatient infusion clinic - then po Keflex 500 QID x 3 weeks Continue Diflucan - 7 days -difficult discharge due to self pay. Appreciate case management assistance. Wilfredo Freire MD Aug 03, 2017 15:01
[2017-08-03] MEDS: COLLAGENASE OINT 30 GM TUBE TOPICAL SCH (15:23)
[2017-08-03 21:10] LABS: AUTOMATED NEUTROPHIL # 6.2 TH/MM3 (1.8-7.7); BASOPHIL % 0.3 % (0.0-2.0); EOSINOPHIL % 0.4 % (0.0-4.0); HEMATOCRIT 30.6 % (35.0-46.0); HEMO FLAGS DIFF FINAL; LYMPH % 15.8 % (9.0-44.0); LYMPHOCYTE # 1.3 TH/MM3 (1.0-4.8); MEAN CELL VOLUME 83.9 FL (80.0-100.0); MEAN CORPUSCULAR HEMOGLOBIN 27.3 PG (27.0-34.0); MEAN CORPUSCULAR HGB CONC 32.6 % (32.0-36.0); MONO % 5.6 % (0.0-8.0); NEUT % 77.9 % (16.0-70.0); PLATELET COUNT 314 TH/MM3 (150-450); RED BLOOD COUNT 3.64 MIL/MM3 (4.00-5.30); RED CELL DISTRIBUTION WIDTH 19.4 % (11.6-17.2)
[2017-08-03 21:34] LABS: BICARBONATE 20.4 MEQ/L (21.0-32.0); MAGNESIUM 1.7 MG/DL (1.5-2.5); POTASSIUM 4.7 MEQ/L (3.5-5.1)
[2017-08-04] VITALS (7 sets, daily range): BP systolic 141–168; BP diastolic 75–105; PULSE 61–83; RESP 16–20; TEMP 96.7–98.2; O2SAT 95–98
[2017-08-04] MEDS: HYDROmorphone HCL PF 1 MG/ML VIAL IV PUSH PRN ×6 (00:15→22:32)
[2017-08-04] MEDS: ceFAZolin 2 GM PREMIX 50 ML IV SCH ×3 (00:16→18:17)
[2017-08-04] MEDS: CHLORHEXIDINE GLUCONATE 2 % 1 PACK (2 CLOTHS) TOP SCH (03:55)
[2017-08-04] MEDS: hydrALAZINE HCL 10 MG TAB PO SCH ×3 (05:26→21:26)
[2017-08-04] MEDS: BETHANECHOL CHL 25 MG TAB PO SCH ×4 (05:26→23:04)
[2017-08-04] MEDS: NIFEdipine 10 MG CAP PO SCH ×3 (05:26→21:26)
[2017-08-04] MEDS: ISOSORBIDE DINITRATE 10 MG TAB PO SCH ×3 (05:26→21:26)
[2017-08-04] MEDS: SODIUM CHLORIDE 0.9% FLUSH 10 ML FLUSH IV FLUSH PRN ×2 (05:29→22:34)
[2017-08-04] MEDS: INSULIN NovoLIN REGULAR SUPPLEMENTAL SCALE SQ SCH ×4 (08:00→21:00)
[2017-08-04] MEDS: COLLAGENASE OINT 30 GM TUBE TOPICAL SCH (09:00)
[2017-08-04] MEDS: DOCUSATE SODIUM 50 MG/SENNA 8.6 MG TAB PO SCH ×2 (09:48→21:00)
[2017-08-04] MEDS: POTASSIUM CHLORIDE 10 MEQ CONTROLLED RELEASE TAB PO SCH (09:48)
[2017-08-04] MEDS: POTASSIUM PHOSPHATE MONOBASIC 500 MG TAB PO SCH ×2 (09:48→21:26)
[2017-08-04] MEDS: predniSONE 20 MG TAB PO SCH (09:48)
[2017-08-04] MEDS: LACTOBACILLUS ACIDOPHILUS TAB PO SCH ×3 (09:48→18:00)
[2017-08-04] MEDS: SODIUM CHLORIDE 0.9% FLUSH 10 ML FLUSH IV FLUSH SCH ×2 (09:49→21:25)
[2017-08-04] MEDS: METOPROLOL TARTRATE 25 MG TAB PO SCH ×2 (09:49→21:28)
[2017-08-04] MEDS: FAMOTIDINE 20 MG TAB PO SCH ×2 (09:49→21:26)
[2017-08-04] MEDS: ONDANSETRON HCL 4 MG/2 ML VIAL IV PUSH PRN (18:18)
--- NOTE | 2017-08-04 19:46 | HHI.PR ---
Subjective Remarks Patient seen this morning around 11 AM. Says she is getting a little start her day by day. Says shortness of breath is improving. Objective Vital Signs Date Time Temp Pulse Resp B/P (MAP) Pulse Ox O2 Delivery O2 Flow Rate FiO2 08/04/17 16:00 96.7 76 20 168/92 (117) 98 08/04/17 12:00 97.1 71 20 156/87 (110) 98 08/04/17 08:00 97.6 83 20 141/75 (97) 97 Manual Cuff/Palpation 08/04/17 08:00 Room Air 08/04/17 07:55 61 08/04/17 04:00 97.2 69 16 168/105 (126) 96 08/03/17 23:20 97.2 65 18 166/99 (121) 96 08/03/17 20:06 84 08/03/17 20:00 Room Air 08/03/17 20:00 98.0 81 16 163/98 (119) 96 I/O 08/03/17 08/03/17 08/03/17 08/04/17 08/04/17 08/04/17 07:00 15:00 23:00 07:00 15:00 23:00 Intake Total 720 ml 50 ml 720 ml Balance 720 ml 50 ml 720 ml Intake Oral 720 ml 720 ml IV Total 50 ml # Voids 2 2 2 # Bowel Movements 4 1 3 0 Result Diagram: 08/03/17200508/03/172005 Objective Remarks GENERAL: patient sitting up in bed. Patient has both knees bent, which is an improvement from yesterday. patient able to lift legs up in air today. SKIN: Warm and dry. HEAD: Normocephalic. EYES: No scleral icterus. No injection or drainage. NECK: Supple, trachea midline. No JVD. CARDIOVASCULAR: Regular rate and rhythm without murmurs, gallops, or rubs. RESPIRATORY: Breath sounds equal bilaterally. No accessory muscle use. GASTROINTESTINAL: Abdomen soft, non-tender, nondistended. MUSCULOSKELETAL: No cyanosis, or edema. BACK: Nontender without obvious deformity. No CVA tenderness. A/P Assessment and Plan ==== 08/04/17 //Leukocytosis. Resolved. 8.0 yesterday. - Continues on IV antibiotics until 08/06, after which she can do Keflex 500 mg 4 times a day for 3 weeks. PT recommends rehabilitation. Continues Working on strengthening. -Continue antibiotics as per infectious disease. //Generalized weakness. Strength improving markedly. Continue to work with PT. Expect patient may have had osteomalacia contributing to weakness. Improving after vitamin D replacement. //Hypovitaminosis D. Extremely low vitamin D 4.5 on 08/02.. Replace with 50, 000 units on 08/02, can do weekly replacement or 7319-2656 daily. Repeat in 2 months.. Neuro/Psych: Metabolic encephalopathy - resolved - Dilaudid when necessary for pain - Neuro checks per ICU protocol Respiratory: Right sided empyema/eczematous secondary to staph aureus Severe bilateral community-acquired pneumonia, with cavitation Acute hypoxic respiratory failure-resolved COPD exacerbation - s/p right VATS, mini thoracotomy, decortication 07/17 for organizing empyema. Chest tube discontinued 07/22 - CT chest initially revealed cavitating pneumonia involving right upper lobe and left lower lobe - Extubated 07/21/17 at 1500 and tolerating well - CXR: Repeat 07/22 every morning -Continue albuterol/ipratropium aerosols every 6 hours with albuterol aerosols every 2 hours. Dyspnea - On methylprednisolone 20 mg IV every 12 hours. Wean the prednisone 20 no grams by mouth daily today Cardiovascular: Septic shock- resolved. NSTEMI/Type II Demand Ischemia History of hypertension Pulmonary hypertension - Unlikely to be ACS. clinically has sepsis syndrome - On Lopressor 25mg Q12 and restarted Procardia 20 mg every 8 hours. Add hydralazine 10 mg every 8 hours and Isordil 10 mg every 8 hours. On Procardia XL 60 mg daily at home.- Monitor HR and BP keep MAP>65mmHg. IV labetalol and IV hydralazine when necessary for systolic blood pressure more than 160 -Echo 07/16 showed EF 50-55%, no vegetations. Small pericardial effusion. Mild pulmonary hypertension 42 mmHg Renal: Acute Kidney Injury- resolving. - Monitor renal function, I/O's, electrolytes replacement per protocol. FEN/GI: Acute protein calorie malnutrition- severe -Currently on nectar thickened liquids. - Famotidine for GI prophylaxis - Docusate sodium/senna 1 tablet twice a day for bowel regimen ID: Acute Community Acquired Pneumonia with MSSA Empyema Septic Shock- resolved UTI with lactobacillus - Continue cefazolin through 08/06 and switch to oral medication 3 weeks - monitor for signs of infections ( Fever, WBC) - ID-Dr. Luna - Pertinent cultures. sputum 07/11 MSSA , urine 07/11 lactobacillus - urine legionella and pneumococcal ag negative 07/11 - Multiple pleural fluid cultures MSSA //Hypovitaminosis D. Extremely low vitamin D 4.5. Replace with 50,000 units today, can do weekly replacement or 3261-5749 daily. Repeat in 2 months.. Endocrine: Hyperglycemia of Critical Illness -- SSI BETTER Heme: Anemia STABLE Leukocytosis STABLE Monitor CBC, s/p transfusion 1unit PRBC 07/19 MSK: decubitus ulcer Wound care evaluate and treat and follow recommendations Prophylaxis: GI Prophylaxis Famotidine DVT Prophylaxis -- SCDs [facility] Discharge Planning CONTINUE ANTIBIOTICS PER ID Will give total 4 weeks IV Abx, then oral Abx x 2-3 weeks Arrange for D/C and get IV Rocephin until Aug 06 - if she could do at outpatient infusion clinic - then po Keflex 500 QID x 3 weeks Continue Diflucan - 7 days -difficult discharge due to self pay. Appreciate case management assistance. Wilfredo Freire MD Aug 04, 2017 19:46
[2017-08-04] MEDS: CHLORHEXIDINE 0.12% (ORAL KIT) 15 ML CUP MT SCH (20:00)
[2017-08-05] VITALS (7 sets, daily range): BP systolic 142–155; BP diastolic 76–94; PULSE 67–80; RESP 16–20; TEMP 97.2–98.5; O2SAT 92–98
[2017-08-05] MEDS: ceFAZolin 2 GM PREMIX 50 ML IV SCH (02:05)
[2017-08-05] MEDS: ONDANSETRON HCL 4 MG/2 ML VIAL IV PUSH PRN ×2 (02:11→22:21)
[2017-08-05] MEDS: SODIUM CHLORIDE 0.9% FLUSH 10 ML FLUSH IV FLUSH PRN ×2 (02:12→06:19)
[2017-08-05] MEDS: HYDROmorphone HCL PF 1 MG/ML VIAL IV PUSH PRN ×2 (02:18→06:18)
[2017-08-05] MEDS: CHLORHEXIDINE GLUCONATE 2 % 1 PACK (2 CLOTHS) TOP SCH (03:14)
[2017-08-05] MEDS: BETHANECHOL CHL 25 MG TAB PO SCH ×3 (05:46→17:24)
[2017-08-05] MEDS: ISOSORBIDE DINITRATE 10 MG TAB PO SCH ×3 (05:47→22:22)
[2017-08-05] MEDS: hydrALAZINE HCL 10 MG TAB PO SCH ×3 (05:47→22:21)
[2017-08-05] MEDS: NIFEdipine 10 MG CAP PO SCH ×3 (05:47→22:20)
[2017-08-05] MEDS: INSULIN NovoLIN REGULAR SUPPLEMENTAL SCALE SQ SCH ×4 (08:00→21:00)
[2017-08-05] MEDS: CHLORHEXIDINE 0.12% (ORAL KIT) 15 ML CUP MT SCH ×2 (08:00→20:00)
[2017-08-05] MEDS ORDERED: ACETAMINOPHEN/HYDROcodone 325 MG/5 MG TAB PO PRN (08:45)
[2017-08-05] MEDS: FAMOTIDINE 20 MG TAB PO SCH ×2 (08:47→22:21)
[2017-08-05] MEDS: CHOLECALCIFEROL (VIT D3) 5000 UNIT CAP PO SCH (08:47)
[2017-08-05] MEDS: POTASSIUM PHOSPHATE MONOBASIC 500 MG TAB PO SCH ×2 (08:47→22:21)
[2017-08-05] MEDS: predniSONE 20 MG TAB PO SCH (08:47)
[2017-08-05] MEDS: METOPROLOL TARTRATE 25 MG TAB PO SCH ×2 (08:47→22:21)
[2017-08-05] MEDS: LACTOBACILLUS ACIDOPHILUS TAB PO SCH ×3 (08:47→17:24)
[2017-08-05] MEDS: POTASSIUM CHLORIDE 10 MEQ CONTROLLED RELEASE TAB PO SCH (08:48)
[2017-08-05] MEDS: SODIUM CHLORIDE 0.9% FLUSH 10 ML FLUSH IV FLUSH SCH ×2 (08:48→22:22)
[2017-08-05] MEDS: COLLAGENASE OINT 30 GM TUBE TOPICAL SCH (08:48)
[2017-08-05] MEDS: DOCUSATE SODIUM 50 MG/SENNA 8.6 MG TAB PO SCH ×2 (08:57→21:00)
[2017-08-05] MEDS ORDERED: CEPH-460 PO (09:28)
[2017-08-05] MEDS: ACETAMINOPHEN/HYDROcodone 325 MG/7.5 MG TAB PO PRN ×3 (10:23→19:42)
[2017-08-05] MEDS: CEPHALEXIN MONOHYDRATE 500 MG CAP PO SCH ×2 (12:56→17:24)
--- NOTE | 2017-08-05 21:35 | HHI.PR ---
Subjective Remarks Patient seen today around 1 PM she says that by mouth pain medications are working. Denies any chest pain or shortness of breath. Says that strength continues improving. Objective Vital Signs Date Time Temp Pulse Resp B/P (MAP) Pulse Ox O2 Delivery O2 Flow Rate FiO2 08/05/17 16:00 97.5 67 20 149/94 (112) 95 08/05/17 12:00 97.2 68 18 153/90 (111) 98 08/05/17 08:06 77 08/05/17 08:00 Room Air 08/05/17 08:00 97.3 77 20 142/77 (98) 94 08/05/17 04:00 98.0 69 18 149/76 (100) 92 08/05/17 00:00 98.1 77 18 142/80 (100) 95 I/O 08/04/17 08/04/17 08/04/17 08/05/17 08/05/17 08/05/17 07:00 15:00 23:00 07:00 15:00 23:00 Intake Total 50 ml 50 ml 840 ml 480 ml 50 ml Output Total 600 ml Balance 50 ml 50 ml 840 ml -120 ml 50 ml Intake Oral 840 ml 480 ml IV Total 50 ml 50 ml 50 ml Output Urine Total 600 ml # Voids 2 3 1 # Bowel Movements 3 1 1 2 Result Diagram: 08/03/17200508/03/172005 Objective Remarks GENERAL: patient sitting up in bed. observed patient stand up with max assist at edge of bed-this is an improvement. SKIN: Warm and dry. HEAD: Normocephalic. EYES: No scleral icterus. No injection or drainage. NECK: Supple, trachea midline. No JVD. CARDIOVASCULAR: Regular rate and rhythm without murmurs, gallops, or rubs. RESPIRATORY: Breath sounds equal bilaterally. No accessory muscle use. GASTROINTESTINAL: Abdomen soft, non-tender, nondistended. MUSCULOSKELETAL: No cyanosis, or edema. BACK: Nontender without obvious deformity. No CVA tenderness. A/P Assessment and Plan ==== 08/05/17 //MSSA empyema. Status post thoracotomy. -Has completed IV antibiotics -Continue Keflex 500 mg 4 times a day for 3 weeks. ///Generalized weakness. Strength continues improving. -Insurance pending at this time. Continue to work on strengthening for eventual discharge home. Improving after vitamin D replacement. Possibly could go home in a week. //Unstable sacral ulcer. Continue wound care. Neuro/Psych: Metabolic encephalopathy - resolved - Dilaudid when necessary for pain - Neuro checks per ICU protocol Respiratory: Right sided empyema/eczematous secondary to staph aureus Severe bilateral community-acquired pneumonia, with cavitation Acute hypoxic respiratory failure-resolved COPD exacerbation - s/p right VATS, mini thoracotomy, decortication 07/17 for organizing empyema. Chest tube discontinued 07/22 - CT chest initially revealed cavitating pneumonia involving right upper lobe and left lower lobe - Extubated 07/21/17 at 1500 and tolerating well - CXR: Repeat 07/22 every morning -Continue albuterol/ipratropium aerosols every 6 hours with albuterol aerosols every 2 hours. Dyspnea - On methylprednisolone 20 mg IV every 12 hours. Wean the prednisone 20 no grams by mouth daily today Cardiovascular: Septic shock- resolved. NSTEMI/Type II Demand Ischemia History of hypertension Pulmonary hypertension - Unlikely to be ACS. clinically has sepsis syndrome - On Lopressor 25mg Q12 and restarted Procardia 20 mg every 8 hours. Add hydralazine 10 mg every 8 hours and Isordil 10 mg every 8 hours. On Procardia XL 60 mg daily at home.- Monitor HR and BP keep MAP>65mmHg. IV labetalol and IV hydralazine when necessary for systolic blood pressure more than 160 -Echo 07/16 showed EF 50-55%, no vegetations. Small pericardial effusion. Mild pulmonary hypertension 42 mmHg Renal: Acute Kidney Injury- resolving. - Monitor renal function, I/O's, electrolytes replacement per protocol. FEN/GI: Acute protein calorie malnutrition- severe -Currently on nectar thickened liquids. - Famotidine for GI prophylaxis - Docusate sodium/senna 1 tablet twice a day for bowel regimen ID: Acute Community Acquired Pneumonia with MSSA Empyema Septic Shock- resolved UTI with lactobacillus - Continue cefazolin through 08/06 and switch to oral medication 3 weeks - monitor for signs of infections ( Fever, WBC) - ID-Dr. Dimayuga - Pertinent cultures. sputum 07/11 MSSA , urine 07/11 lactobacillus - urine legionella and pneumococcal ag negative 07/11 - Multiple pleural fluid cultures MSSA //Hypovitaminosis D. Extremely low vitamin D 4.5. Replace with 50,000 units today, can do weekly replacement or [id number] daily. Repeat in 2 months.. Endocrine: Hyperglycemia of Critical Illness -- SSI BETTER Heme: Anemia STABLE Leukocytosis STABLE Monitor CBC, s/p transfusion 1unit PRBC 07/19 MSK: decubitus ulcer Wound care evaluate and treat and follow recommendations Prophylaxis: GI Prophylaxis Famotidine DVT Prophylaxis -- SCDs [facility] Discharge Planning CONTINUE ANTIBIOTICS PER ID s/p4 weeks IV Abx, -cont po Keflex 500 QID x 3 weeks -difficult discharge due to self pay. still very weak. Working on strengthening. Appreciate case management assistance. Wlifredo Freire MD Aug 05, 2017 21:35
[2017-08-06] VITALS: BP 142/82; PULSE 72; RESP 17; TEMP 97.7; O2SAT 92
[2017-08-06] MEDS: BETHANECHOL CHL 25 MG TAB PO SCH ×5 (00:21→23:06)
[2017-08-06] MEDS: CEPHALEXIN MONOHYDRATE 500 MG CAP PO SCH ×5 (00:21→23:06)
[2017-08-06] MEDS ORDERED: diphenhydrAMINE HCL 25 MG CAP PO ONE (00:45)
[2017-08-06] MEDS: ACETAMINOPHEN/HYDROcodone 325 MG/7.5 MG TAB PO PRN ×6 (01:28→23:06)
[2017-08-06 04:00] VITALS: BP_SYST 134; BP_SYST 182; BP_DIAS 62; BP_DIAS 95; PULSE 71; PULSE 99; RESP 16; RESP 19; TEMP 97.2; TEMP 97.3; O2SAT 100; O2SAT 95
[2017-08-06] MEDS: CHLORHEXIDINE GLUCONATE 2 % 1 PACK (2 CLOTHS) TOP SCH (04:00)
[2017-08-06] MEDS: ISOSORBIDE DINITRATE 10 MG TAB PO SCH ×3 (05:46→22:00)
[2017-08-06] MEDS: hydrALAZINE HCL 10 MG TAB PO SCH ×2 (05:46→14:00)
[2017-08-06] MEDS: NIFEdipine 10 MG CAP PO SCH ×3 (05:46→22:00)
[2017-08-06 08:00] VITALS: BP 125/74; PULSE 76; RESP 20; TEMP 97.8; O2SAT 93
[2017-08-06] MEDS: CHLORHEXIDINE 0.12% (ORAL KIT) 15 ML CUP MT SCH ×2 (08:00→20:00)
[2017-08-06] MEDS: INSULIN NovoLIN REGULAR SUPPLEMENTAL SCALE SQ SCH ×3 (08:00→17:00)
[2017-08-06] MEDS: COLLAGENASE OINT 30 GM TUBE TOPICAL SCH (09:00)
[2017-08-06] MEDS: LACTOBACILLUS ACIDOPHILUS TAB PO SCH ×3 (09:09→17:59)
[2017-08-06] MEDS: METOPROLOL TARTRATE 25 MG TAB PO SCH ×2 (09:09→20:55)
[2017-08-06] MEDS: CHOLECALCIFEROL (VIT D3) 5000 UNIT CAP PO SCH (09:09)
[2017-08-06] MEDS: FAMOTIDINE 20 MG TAB PO SCH ×2 (09:09→20:55)
[2017-08-06] MEDS: POTASSIUM CHLORIDE 10 MEQ CONTROLLED RELEASE TAB PO SCH (09:09)
[2017-08-06] MEDS: SODIUM CHLORIDE 0.9% FLUSH 10 ML FLUSH IV FLUSH SCH ×2 (09:10→20:57)
[2017-08-06] MEDS: predniSONE 20 MG TAB PO SCH (09:10)
[2017-08-06] MEDS: POTASSIUM PHOSPHATE MONOBASIC 500 MG TAB PO SCH ×2 (09:10→20:55)
[2017-08-06] MEDS: DOCUSATE SODIUM 50 MG/SENNA 8.6 MG TAB PO SCH (09:11)
[2017-08-06 12:00] VITALS: BP 148/81; PULSE 67; RESP 20; TEMP 97.5; O2SAT 97
[2017-08-06 16:00] VITALS: BP 112/63; PULSE 80; RESP 18; TEMP 98.8; O2SAT 95
[2017-08-06 17:42] LABS: AUTOMATED NEUTROPHIL # 8.9 TH/MM3 (1.8-7.7); BASOPHIL % 0.2 % (0.0-2.0); EOSINOPHIL % 0.2 % (0.0-4.0); HEMATOCRIT 32.5 % (35.0-46.0); HEMO FLAGS DIFF FINAL; LYMPH % 10.7 % (9.0-44.0); LYMPHOCYTE # 1.1 TH/MM3 (1.0-4.8); MEAN CELL VOLUME 84.6 FL (80.0-100.0); MEAN CORPUSCULAR HEMOGLOBIN 27.9 PG (27.0-34.0); MONO % 3.6 % (0.0-8.0); NEUT % 85.3 % (16.0-70.0); PLATELET COUNT 351 TH/MM3 (150-450); RED BLOOD COUNT 3.84 MIL/MM3 (4.00-5.30); RED CELL DISTRIBUTION WIDTH 19.5 % (11.6-17.2); WHITE BLOOD COUNT 10.5 TH/MM3 (4.0-11.0)
[2017-08-06 18:12] LABS: ALKALINE PHOSPHATASE 117 U/L (45-117); ALT (GPT) 26 U/L (10-53); ANION GAP 7 MEQ/L (5-15); AST (GOT) 33 U/L (15-37); BICARBONATE 22.2 MEQ/L (21.0-32.0); BLOOD UREA NITROGEN 36 MG/DL (7-18); CHLORIDE 111 MEQ/L (98-107); GLOMERULAR FILTRATION RATE 71 ML/MIN (>89); POTASSIUM 5.6 MEQ/L (3.5-5.1); SODIUM (NA) 140 MEQ/L (136-145); TOTAL BILIRUBIN ADULT 0.2 MG/DL (0.2-1.0)
[2017-08-06] MEDS: SODIUM CHLOR 0.9% 1000 ML INJ 1,000 ML IV SCH (19:00)
[2017-08-06] MEDS ORDERED: SODIUM CHLOR 0.9% 250 ML INJ 250 ML IV ONE (19:00)
[2017-08-06 20:00] VITALS: BP 151/82; PULSE 81; RESP 18; TEMP 97.1; O2SAT 98
--- NOTE | 2017-08-06 22:12 | HHI.PR ---
Subjective Remarks Patient seen this morning around 11 AM. Says she is feeling arrived. Denies any shortness of breath. Reports pain is under control. Reports strength continues to improve. Objective Vital Signs Date Time Temp Pulse Resp B/P (MAP) Pulse Ox O2 Delivery O2 Flow Rate FiO2 08/06/17 16:00 98.8 80 18 112/63 (79) 95 08/06/17 12:00 97.5 67 20 148/81 (103) 97 08/06/17 10:00 97 Room Air 08/06/17 08:00 97.8 76 20 125/74 (91) 93 08/06/17 04:00 97.2 71 16 182/95 (124) 95 08/06/17 00:00 97.7 72 17 142/82 (102) 92 I/O 08/05/17 08/05/17 08/05/17 08/06/17 08/06/17 08/06/17 07:00 15:00 23:00 07:00 15:00 23:00 Intake Total 480 ml 50 ml 480 ml Output Total 600 ml Balance -120 ml 50 ml 480 ml Intake Oral 480 ml 480 ml IV Total 50 ml Output Urine Total 600 ml # Voids 1 3 # Bowel Movements 1 2 3 Result Diagram: 08/06/17165708/06/171657 Objective Remarks GENERAL: patient sitting up in bed. observed patient stand up with max assist at edge of bed-this is an improvement. SKIN: Warm and dry. HEAD: Normocephalic. EYES: No scleral icterus. No injection or drainage. NECK: Supple, trachea midline. No JVD. CARDIOVASCULAR: Regular rate and rhythm without murmurs, gallops, or rubs. RESPIRATORY: Breath sounds equal bilaterally. No accessory muscle use. GASTROINTESTINAL: Abdomen soft, non-tender, nondistended. MUSCULOSKELETAL: No cyanosis, or edema. BACK: Nontender without obvious deformity. No CVA tenderness. A/P Assessment and Plan ==== 08/06/17 //Hypokalemia. Potassium 5.6. Likely secondary to dehydration. Will start on IV fluids. //Dehydration. BUN up to 36. Creatinine stable 0.81. We'll start on IV fluids. Encourage by mouth intake. //COPD exacerbation. Wean prednisone === //MSSA empyema. Status post thoracotomy. -Has completed IV antibiotics -Continue Keflex 500 mg 4 times a day for 3 weeks. ///Generalized weakness. Strength continues improving. -Insurance pending at this time. Continue to work on strengthening for eventual discharge home. Improving after vitamin D replacement. Possibly could go home in a week. //Unstageable sacral ulcer. Continue wound care. Neuro/Psych: Metabolic encephalopathy - resolved - Dilaudid when necessary for pain - Neuro checks per ICU protocol Respiratory: Right sided empyema/eczematous secondary to staph aureus Severe bilateral community-acquired pneumonia, with cavitation Acute hypoxic respiratory failure-resolved COPD exacerbation - s/p right VATS, mini thoracotomy, decortication 07/17 for organizing empyema. Chest tube discontinued 07/22 - CT chest initially revealed cavitating pneumonia involving right upper lobe and left lower lobe - Extubated 07/21/17 at 1500 and tolerating well - CXR: Repeat 07/22 every morning -Continue albuterol/ipratropium aerosols every 6 hours with albuterol aerosols every 2 hours. Dyspnea - On methylprednisolone 20 mg IV every 12 hours. Wean the prednisone 20 no grams by mouth daily today Cardiovascular: Septic shock- resolved. NSTEMI/Type II Demand Ischemia History of hypertension Pulmonary hypertension - Unlikely to be ACS. clinically has sepsis syndrome - On Lopressor 25mg Q12 and restarted Procardia 20 mg every 8 hours. Add hydralazine 10 mg every 8 hours and Isordil 10 mg every 8 hours. On Procardia XL 60 mg daily at home.- Monitor HR and BP keep MAP>65mmHg. IV labetalol and IV hydralazine when necessary for systolic blood pressure more than 160 -Echo 07/16 showed EF 50-55%, no vegetations. Small pericardial effusion. Mild pulmonary hypertension 42 mmHg Renal: Acute Kidney Injury- resolving. - Monitor renal function, I/O's, electrolytes replacement per protocol. FEN/GI: Acute protein calorie malnutrition- severe -Currently on nectar thickened liquids. - Famotidine for GI prophylaxis - Docusate sodium/senna 1 tablet twice a day for bowel regimen ID: Acute Community Acquired Pneumonia with MSSA Empyema Septic Shock- resolved UTI with lactobacillus - Continue cefazolin through 08/06 and switch to oral medication 3 weeks - monitor for signs of infections ( Fever, WBC) - ID-Dr. Luna - Pertinent cultures. sputum 07/11 MSSA , urine 07/11 lactobacillus - urine legionella and pneumococcal ag negative 07/11 - Multiple pleural fluid cultures MSSA //Hypovitaminosis D. Extremely low vitamin D 4.5. Replace with 50,000 units today, can do weekly replacement or [id number] daily. Repeat in 2 months.. Endocrine: Hyperglycemia of Critical Illness -- SSI BETTER Heme: Anemia STABLE Leukocytosis STABLE Monitor CBC, s/p transfusion 1unit PRBC 07/19 MSK: decubitus ulcer Wound care evaluate and treat and follow recommendations Prophylaxis: GI Prophylaxis Famotidine DVT Prophylaxis -- SCDs [facility] Discharge Planning CONTINUE ANTIBIOTICS PER ID s/p4 weeks IV Abx, -cont po Keflex 500 QID x 3 weeks -difficult discharge due to self pay. still very weak. Working on strengthening. Appreciate case management assistance. Wilfredo Freire MD Aug 06, 2017 22:12
[2017-08-07] VITALS (7 sets, daily range): BP systolic 132–182; BP diastolic 77–96; PULSE 61–86; RESP 18–20; TEMP 97.2–98.5; O2SAT 97–98
[2017-08-07] MEDS: CHLORHEXIDINE GLUCONATE 2 % 1 PACK (2 CLOTHS) TOP SCH (03:22)
[2017-08-07] MEDS: hydrALAZINE HCL 10 MG TAB PO SCH ×3 (04:52→21:18)
[2017-08-07] MEDS: BETHANECHOL CHL 25 MG TAB PO SCH ×4 (04:52→22:36)
[2017-08-07] MEDS: ACETAMINOPHEN/HYDROcodone 325 MG/7.5 MG TAB PO PRN ×4 (04:52→22:36)
[2017-08-07] MEDS: CEPHALEXIN MONOHYDRATE 500 MG CAP PO SCH ×4 (04:52→22:36)
[2017-08-07] MEDS: CHLORHEXIDINE 0.12% (ORAL KIT) 15 ML CUP MT SCH ×2 (08:00→19:54)
[2017-08-07] MEDS: SODIUM CHLORIDE 0.9% FLUSH 10 ML FLUSH IV FLUSH SCH ×2 (09:00→19:55)
[2017-08-07 09:26] LABS: AUTOMATED NEUTROPHIL # 5.7 TH/MM3 (1.8-7.7); BASOPHIL # 0.1 TH/MM3 (0-0.2); BASOPHIL % 0.6 % (0.0-2.0); EOSINOPHIL # 0.3 TH/MM3 (0-0.4); EOSINOPHIL % 2.9 % (0.0-4.0); HEMATOCRIT 33.4 % (35.0-46.0); HEMO FLAGS DIFF FINAL; LYMPH % 29.2 % (9.0-44.0); LYMPHOCYTE # 2.7 TH/MM3 (1.0-4.8); MEAN CELL VOLUME 85.3 FL (80.0-100.0); MEAN CORPUSCULAR HEMOGLOBIN 27.7 PG (27.0-34.0); MEAN CORPUSCULAR HGB CONC 32.4 % (32.0-36.0); MONO % 5.4 % (0.0-8.0); NEUT % 61.9 % (16.0-70.0); PLATELET COUNT 356 TH/MM3 (150-450); RED BLOOD COUNT 3.92 MIL/MM3 (4.00-5.30); RED CELL DISTRIBUTION WIDTH 19.3 % (11.6-17.2); WHITE BLOOD COUNT 9.2 TH/MM3 (4.0-11.0)
[2017-08-07] MEDS: CHOLECALCIFEROL (VIT D3) 5000 UNIT CAP PO SCH (09:28)
[2017-08-07] MEDS: LACTOBACILLUS ACIDOPHILUS TAB PO SCH ×3 (09:28→18:09)
[2017-08-07] MEDS: FAMOTIDINE 20 MG TAB PO SCH ×2 (09:28→19:55)
[2017-08-07] MEDS: ISOSORBIDE DINITRATE 40 MG SUSTAINED RELEASE TAB PO SCH (09:28)
[2017-08-07] MEDS: predniSONE 10 MG TAB PO SCH (09:28)
[2017-08-07] MEDS: METOPROLOL TARTRATE 25 MG TAB PO SCH ×2 (09:29→19:56)
[2017-08-07] MEDS: POTASSIUM PHOSPHATE MONOBASIC 500 MG TAB PO SCH ×2 (09:29→19:54)
[2017-08-07] MEDS: NIFEdipine 60 MG SUSTAINED RELEASE TAB PO SCH (09:29)
[2017-08-07] MEDS: COLLAGENASE OINT 30 GM TUBE TOPICAL SCH (09:30)
[2017-08-07] MEDS: SODIUM CHLOR 0.9% 1000 ML INJ 1,000 ML IV SCH (09:30)
[2017-08-07 10:03] LABS: MAGNESIUM 1.8 MG/DL (1.5-2.5); POTASSIUM 4.4 MEQ/L (3.5-5.1)
--- NOTE | 2017-08-07 19:17 | HHI.PR ---
Subjective Remarks Patient seen this morning around 11:30 AM. Says she is feeling all right. She says she is upset that pain meds are not being given to her scheduled. She says that pain has not worsened however. She agrees to improve by mouth intake. Objective Vital Signs Date Time Temp Pulse Resp B/P (MAP) Pulse Ox O2 Delivery O2 Flow Rate FiO2 08/07/17 16:00 97.2 79 18 150/81 (104) 98 08/07/17 12:00 98.1 76 18 132/77 (95) 98 08/07/17 08:00 98.1 70 18 182/82 (115) 98 08/07/17 08:00 95 Room Air 08/07/17 08:00 77 08/07/17 04:28 80 08/07/17 04:00 97.3 61 20 168/96 (120) 97 08/07/17 00:00 98.5 70 20 146/87 (106) 97 08/06/17 20:20 Room Air 08/06/17 20:00 97.1 81 18 151/82 (105) 98 I/O 08/06/17 08/06/17 08/06/17 08/07/17 08/07/17 08/07/17 07:00 15:00 23:00 07:00 15:00 23:00 Intake Total 480 ml 610 ml 480 ml Output Total 500 ml Balance 480 ml 610 ml -20 ml Intake Oral 480 ml 360 ml 480 ml IV Total 250 ml Output Urine Total 500 ml # Voids 3 3 # Bowel Movements 3 1 2 Result Diagram: 08/07/17 0842 08/07/17 0842 Objective Remarks GENERAL: patient sitting up in bed. appears comfortable. Breathing comfortably. SKIN: Warm and dry. HEAD: Normocephalic. EYES: No scleral icterus. No injection or drainage. NECK: Supple, trachea midline. No JVD. CARDIOVASCULAR: Regular rate and rhythm without murmurs, gallops, or rubs. RESPIRATORY: Breath sounds equal bilaterally. No accessory muscle use. GASTROINTESTINAL: Abdomen soft, non-tender, nondistended. MUSCULOSKELETAL: No cyanosis, or edema. BACK: Nontender without obvious deformity. No CVA tenderness. A/P Assessment and Plan 66-year-old female who presents with MSSA empyema status post thoracotomy. She continues on antibiotics, has completed ceftriaxone, now is on Keflex 3 week course to be completed 08/27. She is still not Hospital due to continued weakness, slowly improving, no prior source for SNF. Patient found to have severe hypovitaminosis D, likely osteomalacia possibly contributing to weakness. Undergoing replacement. Also with poor by mouth intake, encouraging nutrition. Dietary consultation pending. ==== 08/07/17 //Hypokalemia. potassium 4.6. Resolved. //Dehydration. BUN up to 36 on 08/06. BUN improved to 23 today. Stop fluids this morning. Recheck tomorrow. Encourage by mouth hydration. //COPD exacerbation. Wean prednisone. On the 10 mg daily today. Continue to wean in several days. //Hypertension. Blood pressure controlled under 150 systolic. Switched today to daily long-acting medications. Continue to monitor. === //MSSA empyema. Status post thoracotomy. -Has completed IV antibiotics -Continue Keflex 500 mg 4 times a day for 3 weeks. As per ID. Appreciate assistance. ///Generalized weakness. Strength continues improving. -Insurance pending at this time. Continue to work on strengthening for eventual discharge home. Improving after vitamin D replacement. Possibly could go home in a week. //Unstageable sacral ulcer. Continue wound care. Appreciate assistance. Neuro/Psych: Metabolic encephalopathy - resolved - Dilaudid when necessary for pain - Neuro checks per ICU protocol Respiratory: Right sided empyema/eczematous secondary to staph aureus Severe bilateral community-acquired pneumonia, with cavitation Acute hypoxic respiratory failure-resolved COPD exacerbation - s/p right VATS, mini thoracotomy, decortication 07/17 for organizing empyema. Chest tube discontinued 07/22 - CT chest initially revealed cavitating pneumonia involving right upper lobe and left lower lobe - Extubated 07/21/17 at 1500 and tolerating well - CXR: Repeat 07/22 every morning -Continue albuterol/ipratropium aerosols every 6 hours with albuterol aerosols every 2 hours. Dyspnea - On methylprednisolone 20 mg IV every 12 hours. Wean the prednisone 20 no grams by mouth daily today Cardiovascular: Septic shock- resolved. NSTEMI/Type II Demand Ischemia History of hypertension Pulmonary hypertension - Unlikely to be ACS. clinically has sepsis syndrome - On Lopressor 25mg Q12 and restarted Procardia 20 mg every 8 hours. Add hydralazine 10 mg every 8 hours and Isordil 10 mg every 8 hours. On Procardia XL 60 mg daily at home.- Monitor HR and BP keep MAP>65mmHg. IV labetalol and IV hydralazine when necessary for systolic blood pressure more than 160 -Echo 07/16 showed EF 50-55%, no vegetations. Small pericardial effusion. Mild pulmonary hypertension 42 mmHg Renal: Acute Kidney Injury- resolving. - Monitor renal function, I/O's, electrolytes replacement per protocol. FEN/GI: Acute protein calorie malnutrition- severe -Currently on nectar thickened liquids. - Famotidine for GI prophylaxis - Docusate sodium/senna 1 tablet twice a day for bowel regimen ID: Acute Community Acquired Pneumonia with MSSA Empyema Septic Shock- resolved UTI with lactobacillus -completed treatment. - Continue cefazolin through 08/06 and switch to oral medication 3 weeks - monitor for signs of infections ( Fever, WBC) - ID-Dr. Luna - Pertinent cultures. sputum 07/11 MSSA , urine 07/11 lactobacillus - urine legionella and pneumococcal ag negative 07/11 - Multiple pleural fluid cultures MSSA //Hypovitaminosis D. Extremely low vitamin D 4.5. Replace with 50,000 units today, can do weekly replacement or [id number] daily. Repeat in 2 months.. Endocrine: Hyperglycemia of Critical Illnessresolved. -- SSI BETTER Heme: Anemia STABLE Leukocytosis STABLE Monitor CBC, s/p transfusion 1unit PRBC 07/19 MSK: decubitus ulcer Wound care evaluate and treat and follow recommendations Prophylaxis: GI Prophylaxis Famotidine DVT Prophylaxis -- SCDs [facility] Discharge Planning CONTINUE ANTIBIOTICS PER ID s/p4 weeks IV Abx, -cont po Keflex 500 QID x 3 weeks started 08/06. Stop 08/27. -difficult discharge due to self pay. still very weak. Working on strengthening. Appreciate case management assistance. Wilfredo Freire MD Aug 07, 2017 19:17
[2017-08-07] MEDS: diphenhydrAMINE HCL 25 MG CAP PO PRN ×2 (19:55→21:18)
[2017-08-08] VITALS (9 sets, daily range): BP systolic 134–177; BP diastolic 75–88; PULSE 66–93; RESP 17–20; TEMP 97.4–98.6; O2SAT 92–98
[2017-08-08] MEDS: CHLORHEXIDINE GLUCONATE 2 % 1 PACK (2 CLOTHS) TOP SCH (02:57)
[2017-08-08] MEDS: ACETAMINOPHEN/HYDROcodone 325 MG/7.5 MG TAB PO PRN ×2 (02:58→06:39)
[2017-08-08] MEDS: CEPHALEXIN MONOHYDRATE 500 MG CAP PO SCH ×3 (05:54→17:01)
[2017-08-08] MEDS: hydrALAZINE HCL 10 MG TAB PO SCH ×3 (05:54→20:45)
[2017-08-08] MEDS: BETHANECHOL CHL 25 MG TAB PO SCH ×3 (05:54→22:00)
[2017-08-08] MEDS: POTASSIUM PHOSPHATE MONOBASIC 500 MG TAB PO SCH ×2 (09:13→20:44)
[2017-08-08] MEDS: predniSONE 10 MG TAB PO SCH (09:13)
[2017-08-08] MEDS: METOPROLOL TARTRATE 25 MG TAB PO SCH ×2 (09:13→20:43)
[2017-08-08] MEDS: SODIUM CHLORIDE 0.9% FLUSH 10 ML FLUSH IV FLUSH SCH ×2 (09:13→20:44)
[2017-08-08] MEDS: ISOSORBIDE DINITRATE 40 MG SUSTAINED RELEASE TAB PO SCH (09:13)
[2017-08-08] MEDS: COLLAGENASE OINT 30 GM TUBE TOPICAL SCH (09:13)
[2017-08-08] MEDS: CHOLECALCIFEROL (VIT D3) 5000 UNIT CAP PO SCH (09:13)
[2017-08-08] MEDS: NIFEdipine 60 MG SUSTAINED RELEASE TAB PO SCH (09:13)
[2017-08-08] MEDS: LACTOBACILLUS ACIDOPHILUS TAB PO SCH ×3 (09:13→17:01)
[2017-08-08] MEDS: CHLORHEXIDINE 0.12% (ORAL KIT) 15 ML CUP MT SCH ×2 (09:13→20:00)
[2017-08-08] MEDS: FAMOTIDINE 20 MG TAB PO SCH ×2 (09:13→20:43)
--- NOTE | 2017-08-08 09:46 | HHI.PR ---
Subjective Remarks Follow-up for generalized weakness Complaining of generalized pain especially when ambulating and moving. Allegedly participating with physical therapy. Would like to go home. Not very mobile at baseline. Afebrile. Denies any chest pain or shortness of breath. Objective Vitals Vital Signs Date Time Temp Pulse Resp B/P (MAP) Pulse Ox O2 Delivery O2 Flow Rate FiO2 08/08/17 04:07 93 08/08/17 04:00 97.9 76 18 162/87 (112) 98 08/08/17 00:00 97.4 70 20 146/83 (104) 96 08/07/17 20:25 Room Air 08/07/17 19:52 98.4 86 20 150/88 (108) 97 08/07/17 16:00 97.2 79 18 150/81 (104) 98 08/07/17 12:00 98.1 76 18 132/77 (95) 98 I/O 08/07/17 08/07/17 08/07/17 08/08/17 08/08/17 08/08/17 06:59 14:59 22:59 06:59 14:59 22:59 Intake Total 610 ml 480 ml Output Total 500 ml Balance 610 ml -20 ml Intake Oral 360 ml 480 ml IV Total 250 ml Output Urine Total 500 ml # Voids 3 # Bowel Movements 1 2 4 Result Diagram: 08/07/17 0842 08/07/17 0842 Objective Remarks Not in distress, does not appear comfortable because of generalized pain. PERRL Normal rate and regular rhythm, no murmurs gallops or rubs appreciated. Clear to auscultation and symmetric bilaterally, normal respiratory effort. Normal bowel sounds, soft, non-tender, nondistended, no guarding. AAO x3, moves extremities. Procedures - s/p right VATS, mini thoracotomy, decortication 07/17 for organizing empyema. cc: Viraj Carpio MD Operative Report Date of Surgery: Jul 17, 2017 Preoperative Diagnosis: Postoperative Diagnosis: Procedure: 1. Right Video Assisted Thoracoscopic Surgery (VATS) 2. Right Posterolateral Muscle Sparing Mini-Thoracotomy 3. Decortication 4. Intercostal Nerve Block Surgeon: Viraj Carpio Hospital Librarian(s): Danny Sargent Operation and Findings: PREOPERATIVE DIAGNOSIS 1. Right Organized Empyema 2. Loculated Abscess Cavities 3. Pneumonia 4. Respiratory Failure POSTOPERATIVE DIAGNOSIS same PROCEDURES 1. Right Video Assisted Thoracoscopic Surgery (VATS) 2. Right Posterolateral Muscle Sparing Mini-Thoracotomy 3. Decortication 4. Intercostal Nerve Block SURGEON Viraj Carpio MD Date of Insertion: Jul 29, 2017 Date of Removal: Jul 29, 2017 Line: PICC (MIDLINE ON RIGHT SIDE) Side: Right A/P Problem List: (1) Empyema ICD Code: J86.9 - Pyothorax without fistula (2) S/P Right Thoracotomy with Decortication (3) right locualted pleural effusion Assessment and Plan 66-year-old female who presents with MSSA empyema status post thoracotomy. Status post intravenous ceftriaxone, now is on Keflex 3 week course to be completed 08/27. She is still not Hospital due to continued weakness, slowly improving, no prior source for SNF. Patient found to have severe hypovitaminosis D, likely osteomalacia possibly contributing to weakness. Undergoing replacement. Also with poor by mouth intake, encouraging nutrition. MSSA empyema - Status post thoracotomy. ID following, status post ceftriaxone, Continue Keflex 500 mg 4 times a day for 3 weeks until 1026. Generalized weakness- Strength continues improving. Continue physical therapy daily, increase vitamin D dosing. Control pain better. No benefits for rehabilitation or home health care. Unstageable sacral ulcer. Continue wound care. Appreciate assistance Hypovitaminosis D-start high-dose vitamin D 50,000 units every week. Generalized pain-could be secondary to arthritis, start mobile, switched [place] to Percocet. If no improvement, start Flexeril per home dose. Acute hypoxic respiratory failure-resolved COPD exacerbation - s/p right VATS, mini thoracotomy, decortication 07/17 for organizing empyema. Chest tube discontinued 07/22 - CT chest initially revealed cavitating pneumonia involving right upper lobe and left lower lobe - Extubated 07/21/17 at 1500 and tolerating well, continue duo nebs, continue prednisone, continue to taper. Septic shock- resolved. NSTEMI/Type II Demand Ischemia History of hypertension Pulmonary hypertension - Unlikely to be ACS. Continue Lopressor, Procardia, hydralazine, hydralazine as needed. Could be secondary to pain. Echo 07/16 showed EF 50-55%, no vegetations. Small pericardial effusion. Mild pulmonary hypertension 42 mmHg Acute Kidney Injury-resolved. Acute protein calorie malnutrition- severe, consult dietary, on heart healthy diet. Hypokalemia-resolved Dehydration-resolved, recheck BMP in a few days. GI Prophylaxis Famotidine DVT Prophylaxis -- SCDs Discharge Planning s/p4 weeks IV Abx, cont po Keflex 500 QID x 3 weeks started 08/06. Stop 08/27. Still very weak, start physical therapy daily. Discharge was ambulating okay. No benefits for home health care or rehabilitation, ? Radha Portillo MD Aug 08, 2017 09:46
[2017-08-08] MEDS ORDERED: NALOXONE HCL 0.4 MG/ML AMP IV PUSH PRN (10:15)
[2017-08-08] MEDS ORDERED: oxyCODONE/ACETAMINOPHEN 5 MG/325 MG TAB PO PRN (10:15)
[2017-08-08] MEDS: oxyCODONE/ACETAMINOPHEN 10 MG/325 MG TAB PO PRN ×3 (10:55→22:00)
[2017-08-08] MEDS: ERGOCALCIFEROL (VIT D2) 50,000 UNIT CAP PO SCH (13:21)
[2017-08-08] MEDS: MELOXICAM 15 MG TAB PO SCH (13:21)
[2017-08-08 22:27] LABS: AUTOMATED NEUTROPHIL # 14.7 TH/MM3 (1.8-7.7); BASOPHIL % 0.2 % (0.0-2.0); EOSINOPHIL % 0.2 % (0.0-4.0); HEMATOCRIT 29.5 % (35.0-46.0); HEMO FLAGS DIFF FINAL; LYMPH % 12.8 % (9.0-44.0); LYMPHOCYTE # 2.3 TH/MM3 (1.0-4.8); MEAN CELL VOLUME 85.4 FL (80.0-100.0); MEAN CORPUSCULAR HEMOGLOBIN 27.3 PG (27.0-34.0); MEAN CORPUSCULAR HGB CONC 31.9 % (32.0-36.0); MONO % 4.6 % (0.0-8.0); NEUT % 82.2 % (16.0-70.0); PLATELET COUNT 390 TH/MM3 (150-450); RED BLOOD COUNT 3.46 MIL/MM3 (4.00-5.30); RED CELL DISTRIBUTION WIDTH 19.6 % (11.6-17.2); WHITE BLOOD COUNT 17.9 TH/MM3 (4.0-11.0)
[2017-08-08 22:54] LABS: BICARBONATE 20.9 MEQ/L (21.0-32.0); MAGNESIUM 1.8 MG/DL (1.5-2.5); POTASSIUM 4.5 MEQ/L (3.5-5.1)
[2017-08-09] VITALS (8 sets, daily range): BP systolic 97–161; BP diastolic 53–85; PULSE 52–97; RESP 18–20; TEMP 94–98.8; O2SAT 91–97
[2017-08-09] MEDS: CEPHALEXIN MONOHYDRATE 500 MG CAP PO SCH ×5 (00:30→23:59)
[2017-08-09] MEDS: oxyCODONE/ACETAMINOPHEN 10 MG/325 MG TAB PO PRN ×4 (03:00→22:04)
[2017-08-09] MEDS: CHLORHEXIDINE GLUCONATE 2 % 1 PACK (2 CLOTHS) TOP SCH (04:00)
[2017-08-09] MEDS: hydrALAZINE HCL 10 MG TAB PO SCH ×3 (05:42→20:50)
[2017-08-09] MEDS: BETHANECHOL CHL 25 MG TAB PO SCH ×3 (05:43→20:49)
[2017-08-09] MEDS: NIFEdipine 60 MG SUSTAINED RELEASE TAB PO SCH (09:42)
[2017-08-09] MEDS: MELOXICAM 15 MG TAB PO SCH (09:43)
[2017-08-09] MEDS: LACTOBACILLUS ACIDOPHILUS TAB PO SCH ×3 (09:43→16:49)
[2017-08-09] MEDS: FAMOTIDINE 20 MG TAB PO SCH ×2 (09:43→20:49)
[2017-08-09] MEDS: ISOSORBIDE DINITRATE 40 MG SUSTAINED RELEASE TAB PO SCH (09:43)
[2017-08-09] MEDS: predniSONE 10 MG TAB PO SCH (09:44)
[2017-08-09] MEDS: METOPROLOL TARTRATE 25 MG TAB PO SCH ×2 (09:44→20:50)
[2017-08-09] MEDS: SODIUM CHLORIDE 0.9% FLUSH 10 ML FLUSH IV FLUSH SCH ×2 (09:44→20:50)
[2017-08-09] MEDS: COLLAGENASE OINT 30 GM TUBE TOPICAL SCH (09:44)
[2017-08-09] MEDS: CHLORHEXIDINE 0.12% (ORAL KIT) 15 ML CUP MT SCH ×2 (09:44→20:00)
--- NOTE | 2017-08-09 12:11 | HHI.PR ---
Subjective Remarks Follow-up for pain, empyema Generalized pain is a lot better, from 10 over 10 down to 7/10. She says she can participate with therapy better. No shortness of breath, no fever. Objective Vitals Vital Signs Date Time Temp Pulse Resp B/P (MAP) Pulse Ox O2 Delivery O2 Flow Rate FiO2 08/09/17 08:00 94.0 84 18 149/80 (103) 93 08/09/17 04:00 98.0 78 20 142/79 (100) 91 08/09/17 00:00 98.8 97 20 118/75 (89) 97 08/08/17 22:03 82 148/85 (106) 08/08/17 20:00 98.6 92 18 134/75 (94) 92 08/08/17 20:00 Room Air 08/08/17 19:59 85 08/08/17 16:00 98.5 85 18 136/77 (96) 96 I/O 08/08/17 08/08/17 08/08/17 08/09/17 08/09/17 08/09/17 07:00 15:00 23:00 07:00 15:00 23:00 Intake Total 960 ml Balance 960 ml Intake Oral 960 ml # Voids 3 2 # Bowel Movements 4 1 Result Diagram: 08/08/17215608/08/172156 Objective Remarks Not in distress, PERRL Normal rate and regular rhythm, no murmurs gallops or rubs appreciated. Clear to auscultation and symmetric bilaterally, normal respiratory effort. Normal bowel sounds, soft, non-tender, nondistended, no guarding. AAO x3, moves extremities. Procedures - s/p right VATS, mini thoracotomy, decortication 07/17 for organizing empyema. cc: Viraj Carpio MD Operative Report Date of Surgery: Jul 17, 2017 Preoperative Diagnosis: Postoperative Diagnosis: Procedure: 1. Right Video Assisted Thoracoscopic Surgery (VATS) 2. Right Posterolateral Muscle Sparing Mini-Thoracotomy 3. Decortication 4. Intercostal Nerve Block Surgeon: Viraj Carpio Asset Protection Detective(s): Danny Sargent Operation and Findings: PREOPERATIVE DIAGNOSIS 1. Right Organized Empyema 2. Loculated Abscess Cavities 3. Pneumonia 4. Respiratory Failure POSTOPERATIVE DIAGNOSIS same PROCEDURES 1. Right Video Assisted Thoracoscopic Surgery (VATS) 2. Right Posterolateral Muscle Sparing Mini-Thoracotomy 3. Decortication 4. Intercostal Nerve Block SURGEON Viraj Carpio MD Date of Insertion: Jul 29, 2017 Date of Removal: Jul 29, 2017 Line: PICC (MIDLINE ON RIGHT SIDE) Side: Right A/P Problem List: (1) Empyema ICD Code: J86.9 - Pyothorax without fistula (2) S/P Right Thoracotomy with Decortication (3) right locualted pleural effusion Assessment and Plan 66-year-old female who presents with MSSA empyema status post thoracotomy. Status post intravenous ceftriaxone, now is on Keflex 3 week course to be completed 08/27. She is still not Hospital due to continued weakness, slowly improving, no prior source for SNF. Patient found to have severe hypovitaminosis D, likely osteomalacia possibly contributing to weakness. MSSA empyema - Status post thoracotomy. ID following, status post ceftriaxone, Continue Keflex 500 mg 4 times a day for 3 weeks until 08/27. Generalized weakness- Strength continues improving. However pain is limiting her movement, pain regimen changed 08/08/17. No benefits for rehabilitation or home health care. Continue therapy. Unstageable sacral ulcer. Continue wound care. Appreciate assistance Hypovitaminosis D-start high-dose vitamin D 50,000 units every week. Generalized pain-could be secondary to arthritis, Modic started, [place] switch to Percocet. Pain has improved. Continue with therapy, Flexeril trial if still with a lot of pain. Acute hypoxic respiratory failure-resolved COPD exacerbation - s/p right VATS, mini thoracotomy, decortication 07/17 for organizing empyema. Chest tube discontinued 07/22 - CT chest initially revealed cavitating pneumonia involving right upper lobe and left lower lobe - Extubated 07/21/17 at 1500 and tolerating well, continue duo nebs, stop prednisone 08/09/17. Septic shock- resolved. NSTEMI/Type II Demand Ischemia History of hypertension Pulmonary hypertension - Unlikely to be ACS. Continue Lopressor, Procardia, hydralazine, hydralazine as needed. Could be secondary to pain. Echo 07/16 showed EF 50-55%, no vegetations. Small pericardial effusion. Mild pulmonary hypertension 42 mmHg. Adjust antihypertensives as needed. Acute Kidney Injury-resolved. Acute protein calorie malnutrition- severe, consult dietary, on heart healthy diet. Hypokalemia-resolved Dehydration-resolved, recheck BMP in a few days. GI Prophylaxis Famotidine DVT Prophylaxis -- SCDs Discharge Planning s/p 4 weeks IV Abx, cont po Keflex 500 QID x 3 weeks started 08/06. Stop . Still very weak, continue physical therapy daily. No benefits for home health care or rehabilitation, ? [place]. Discharge once stable for home, patient participating with physical therapy. Radha Ledbetter MD Aug 09, 2017 12:11
[2017-08-09] MEDS: POTASSIUM PHOSPHATE MONOBASIC 500 MG TAB PO SCH ×2 (13:17→20:49)
[2017-08-09] MEDS ORDERED: oxyCODONE/ACETAMINOPHEN 5 MG/325 MG TAB PO ONE (13:30)
[2017-08-09] MEDS: diphenhydrAMINE HCL 25 MG CAP PO PRN (21:27)
[2017-08-10] VITALS (9 sets, daily range): BP systolic 120–149; BP diastolic 65–80; PULSE 71–94; RESP 16–20; TEMP 97–98.9; O2SAT 93–97
[2017-08-10] MEDS: CHLORHEXIDINE GLUCONATE 2 % 1 PACK (2 CLOTHS) TOP SCH (04:00)
[2017-08-10] MEDS: oxyCODONE/ACETAMINOPHEN 10 MG/325 MG TAB PO PRN ×4 (04:25→18:04)
[2017-08-10] MEDS: BETHANECHOL CHL 25 MG TAB PO SCH ×3 (06:30→22:05)
[2017-08-10] MEDS: hydrALAZINE HCL 10 MG TAB PO SCH ×3 (06:30→22:06)
[2017-08-10] MEDS: CEPHALEXIN MONOHYDRATE 500 MG CAP PO SCH ×3 (06:30→17:18)
[2017-08-10] MEDS: CHLORHEXIDINE 0.12% (ORAL KIT) 15 ML CUP MT SCH ×2 (08:00→20:00)
[2017-08-10] MEDS: ISOSORBIDE DINITRATE 40 MG SUSTAINED RELEASE TAB PO SCH (08:58)
[2017-08-10] MEDS: LACTOBACILLUS ACIDOPHILUS TAB PO SCH ×3 (08:58→17:18)
[2017-08-10] MEDS: FAMOTIDINE 20 MG TAB PO SCH ×2 (08:59→22:05)
[2017-08-10] MEDS: MELOXICAM 15 MG TAB PO SCH (08:59)
[2017-08-10] MEDS: POTASSIUM PHOSPHATE MONOBASIC 500 MG TAB PO SCH ×2 (08:59→22:05)
[2017-08-10] MEDS: NIFEdipine 60 MG SUSTAINED RELEASE TAB PO SCH (08:59)
[2017-08-10] MEDS: METOPROLOL TARTRATE 25 MG TAB PO SCH ×2 (09:00→22:06)
[2017-08-10] MEDS: SODIUM CHLORIDE 0.9% FLUSH 10 ML FLUSH IV FLUSH SCH ×2 (09:02→21:00)
[2017-08-10] MEDS: COLLAGENASE OINT 30 GM TUBE TOPICAL SCH (09:05)
--- NOTE | 2017-08-10 17:02 | HHI.PR ---
Subjective Remarks Patient complaint of pain in her ribs No other issues nausea vomiting short of breath or abdominal pain Objective Vitals Vital Signs Date Time Temp Pulse Resp B/P (MAP) Pulse Ox O2 Delivery O2 Flow Rate FiO2 08/10/17 14:07 75 121/73 (89) 08/10/17 12:00 98.0 81 18 120/75 (90) 96 08/10/17 08:05 Room Air 08/10/17 08:05 77 08/10/17 08:00 97.0 83 18 145/80 (101) 94 08/10/17 04:22 97.6 71 20 149/80 (103) 95 08/10/17 04:00 Room Air 08/10/17 00:00 98.9 77 16 129/65 (86) 93 08/10/17 00:00 Room Air 08/09/17 22:00 Room Air 08/09/17 20:21 90 08/09/17 20:00 98.4 92 18 134/77 (96) 95 I/O 08/09/17 08/09/17 08/09/17 08/10/17 08/10/17 08/10/17 07:00 15:00 23:00 07:00 15:00 23:00 Intake Total 480 ml Balance 480 ml Intake Oral 480 ml # Voids 2 3 # Bowel Movements 1 Result Diagram: 08/08/17215608/08/[id number] Objective Remarks GENERAL: This is a well-nourished, well-developed patient, in no apparent distress. SKIN: No rashes, warm and dry HEAD: Atraumatic. Normocephalic. EYES: Pupils equal round and reactive. Extraocular motions intact. No scleral icterus. ENT: Nose without bleeding, or drainage, Airway patent. NECK: Trachea midline. Supple CARDIOVASCULAR: Regular rate and rhythm without murmurs, gallops, or rubs. RESPIRATORY: Fair air entry bilaterally. No wheezes, rales, or rhonchi. GASTROINTESTINAL: Abdomen soft, non-tender, nondistended. Positive bowel sounds MUSCULOSKELETAL: Extremities without clubbing, cyanosis, or edema. Pedal pulses appreciated NEUROLOGICAL: Awake and alert. Moves all extremity. Normal speech.no focal neurological deficit Procedures - s/p right VATS, mini thoracotomy, decortication 07/17 for organizing empyema. cc: Viraj Carpio MD Operative Report Date of Surgery: Jul 17, 2017 Preoperative Diagnosis: Postoperative Diagnosis: Procedure: 1. Right Video Assisted Thoracoscopic Surgery (VATS) 2. Right Posterolateral Muscle Sparing Mini-Thoracotomy 3. Decortication 4. Intercostal Nerve Block Surgeon: Viraj Carpio Feather Shaper(s): Danny Sargent Operation and Findings: PREOPERATIVE DIAGNOSIS 1. Right Organized Empyema 2. Loculated Abscess Cavities 3. Pneumonia 4. Respiratory Failure POSTOPERATIVE DIAGNOSIS same PROCEDURES 1. Right Video Assisted Thoracoscopic Surgery (VATS) 2. Right Posterolateral Muscle Sparing Mini-Thoracotomy 3. Decortication 4. Intercostal Nerve Block SURGEON Viraj Carpio MD Date of Insertion: Jul 29, 2017 Date of Removal: Jul 29, 2017 Line: PICC (MIDLINE ON RIGHT SIDE) Side: Right A/P Problem List: (1) Empyema ICD Code: J86.9 - Pyothorax without fistula (2) S/P Right Thoracotomy with Decortication (3) right locualted pleural effusion Assessment and Plan 08/10: Continue efforts with physical therapy to improve mobility, WBC increased to 17,000 1 repeat CBC in a.m. A/P: 66-year-old female who presents with MSSA empyema status post thoracotomy. Status post intravenous ceftriaxone, now is on Keflex 3 week course to be completed 08/27. She is still not Hospital due to continued weakness, slowly improving, no prior source for SNF. Patient found to have severe hypovitaminosis D, likely osteomalacia possibly contributing to weakness. MSSA empyema - Status post thoracotomy. ID following, status post ceftriaxone, Continue Keflex 500 mg 4 times a day for 3 weeks until 08/27. Generalized weakness- Strength continues improving. However pain is limiting her movement, pain regimen changed 08/08/17. No benefits for rehabilitation or home health care. Continue therapy. Unstageable sacral ulcer. Continue wound care. Appreciate assistance Hypovitaminosis D-start high-dose vitamin D 50,000 units every week. Generalized pain-could be secondary to arthritis, Modic started, [place] switch to Percocet. Pain has improved. Continue with therapy, Flexeril trial if still with a lot of pain. Acute hypoxic respiratory failure-resolved COPD exacerbation - s/p right VATS, mini thoracotomy, decortication 07/17 for organizing empyema. Chest tube discontinued 07/22 - CT chest initially revealed cavitating pneumonia involving right upper lobe and left lower lobe - Extubated 07/21/17 at 1500 and tolerating well, continue duo nebs, stop prednisone 08/09/17. Septic shock- resolved. NSTEMI/Type II Demand Ischemia History of hypertension Pulmonary hypertension - Unlikely to be ACS. Continue Lopressor, Procardia, hydralazine, hydralazine as needed. Could be secondary to pain. Echo 07/16 showed EF 50-55%, no vegetations. Small pericardial effusion. Mild pulmonary hypertension 42 mmHg. Adjust antihypertensives as needed. Acute Kidney Injury-resolved. Acute protein calorie malnutrition- severe, consult dietary, on heart healthy diet. Hypokalemia-resolved Dehydration-resolved, recheck BMP in a few days. GI Prophylaxis Famotidine DVT Prophylaxis -- SCDs Discharge Planning s/p 4 weeks IV Abx, cont po Keflex 500 QID x 3 weeks started 08/06. Stop . Still very weak, continue physical therapy daily. No benefits for home health care or rehabilitation, ? [place]. Discharge once stable for home, patient participating with physical therapy. Catarina Gonzalez MD Aug 10, 2017 17:02
[2017-08-11] VITALS (7 sets, daily range): BP systolic 132–152; BP diastolic 71–85; PULSE 75–94; RESP 18–20; TEMP 97.3–98.5; O2SAT 92–97
[2017-08-11] MEDS: CEPHALEXIN MONOHYDRATE 500 MG CAP PO SCH ×5 (00:13→23:29)
[2017-08-11] MEDS: oxyCODONE/ACETAMINOPHEN 10 MG/325 MG TAB PO PRN ×5 (00:16→23:29)
[2017-08-11] MEDS: CHLORHEXIDINE GLUCONATE 2 % 1 PACK (2 CLOTHS) TOP SCH (04:00)
[2017-08-11] MEDS: hydrALAZINE HCL 10 MG TAB PO SCH ×3 (05:10→21:17)
[2017-08-11] MEDS: BETHANECHOL CHL 25 MG TAB PO SCH ×3 (05:10→21:16)
[2017-08-11] MEDS: CHLORHEXIDINE 0.12% (ORAL KIT) 15 ML CUP MT SCH ×2 (08:00→20:00)
[2017-08-11 08:22] LABS: AUTOMATED NEUTROPHIL # 7.7 TH/MM3 (1.8-7.7); BASOPHIL % 0.3 % (0.0-2.0); EOSINOPHIL # 0.2 TH/MM3 (0-0.4); HEMATOCRIT 29.8 % (35.0-46.0); HEMO FLAGS DIFF FINAL; LYMPH % 20.2 % (9.0-44.0); LYMPHOCYTE # 2.1 TH/MM3 (1.0-4.8); MEAN CELL VOLUME 84.5 FL (80.0-100.0); MEAN CORPUSCULAR HEMOGLOBIN 27.6 PG (27.0-34.0); MEAN CORPUSCULAR HGB CONC 32.7 % (32.0-36.0); MONO % 4.4 % (0.0-8.0); NEUT % 73.1 % (16.0-70.0); PLATELET COUNT 337 TH/MM3 (150-450); RED BLOOD COUNT 3.53 MIL/MM3 (4.00-5.30); WHITE BLOOD COUNT 10.5 TH/MM3 (4.0-11.0)
[2017-08-11] MEDS: POTASSIUM PHOSPHATE MONOBASIC 500 MG TAB PO SCH ×2 (09:16→21:16)
[2017-08-11] MEDS: NIFEdipine 60 MG SUSTAINED RELEASE TAB PO SCH (09:16)
[2017-08-11] MEDS: LACTOBACILLUS ACIDOPHILUS TAB PO SCH ×3 (09:16→17:16)
[2017-08-11] MEDS: FAMOTIDINE 20 MG TAB PO SCH ×2 (09:16→21:16)
[2017-08-11] MEDS: ISOSORBIDE DINITRATE 40 MG SUSTAINED RELEASE TAB PO SCH (09:16)
[2017-08-11] MEDS: SODIUM CHLORIDE 0.9% FLUSH 10 ML FLUSH IV FLUSH SCH ×2 (09:17→21:18)
[2017-08-11] MEDS: METOPROLOL TARTRATE 25 MG TAB PO SCH ×2 (09:17→21:15)
[2017-08-11] MEDS: COLLAGENASE OINT 30 GM TUBE TOPICAL SCH (09:17)
[2017-08-11] MEDS: MELOXICAM 15 MG TAB PO SCH (09:17)
[2017-08-11] MEDS: ONDANSETRON HCL 4 MG/2 ML VIAL IV PUSH PRN (21:38)
[2017-08-12] VITALS (7 sets, daily range): BP systolic 119–161; BP diastolic 63–89; PULSE 64–93; RESP 18–20; TEMP 97.8–98.3; O2SAT 92–95
[2017-08-12] MEDS: CHLORHEXIDINE GLUCONATE 2 % 1 PACK (2 CLOTHS) TOP SCH (03:57)
[2017-08-12] MEDS: BETHANECHOL CHL 25 MG TAB PO SCH ×3 (06:21→21:53)
[2017-08-12] MEDS: CEPHALEXIN MONOHYDRATE 500 MG CAP PO SCH ×3 (06:21→17:39)
[2017-08-12] MEDS: hydrALAZINE HCL 10 MG TAB PO SCH ×3 (06:21→21:52)
[2017-08-12] MEDS: oxyCODONE/ACETAMINOPHEN 10 MG/325 MG TAB PO PRN ×3 (06:22→21:52)
[2017-08-12] MEDS: CHLORHEXIDINE 0.12% (ORAL KIT) 15 ML CUP MT SCH ×2 (08:00→20:00)
--- NOTE | 2017-08-12 08:58 | HHI.PR ---
Subjective Remarks delayed Entry from 08/11/17: patient stated she is trying her best with physical therapy, working on improving her mobility is noted to be able to be discharged home Objective Vitals Vital Signs Date Time Temp Pulse Resp B/P (MAP) Pulse Ox O2 Delivery O2 Flow Rate FiO2 08/12/17 04:00 98.0 73 20 138/80 (99) 95 08/12/17 00:00 97.9 80 20 142/74 (96) 95 08/11/17 20:00 94 08/11/17 20:00 Room Air 08/11/17 20:00 97.4 94 20 152/83 (106) 95 08/11/17 16:00 98.5 84 20 138/75 (96) 94 08/11/17 12:00 97.3 75 20 143/80 (101) 96 I/O 08/11/17 08/11/17 08/11/17 08/12/17 08/12/17 08/12/17 07:00 15:00 23:00 07:00 15:00 23:00 Intake Total 240 ml 720 ml 220 ml Output Total 350 ml 300 ml 200 ml Balance -110 ml 420 ml 20 ml Intake Oral 240 ml 720 ml 220 ml Output Urine Total 350 ml 300 ml 200 ml # Voids 3 # Bowel Movements 2 4 1 Result Diagram: 08/11/1771908/08/172156 Objective Remarks GENERAL: This is a well-nourished, well-developed patient, in no apparent distress. SKIN: No rashes, warm and dry HEAD: Atraumatic. Normocephalic. EYES: Pupils equal round and reactive. Extraocular motions intact. No scleral icterus. ENT: Nose without bleeding, or drainage, Airway patent. NECK: Trachea midline. Supple CARDIOVASCULAR: Regular rate and rhythm without murmurs, gallops, or rubs. RESPIRATORY: Fair air entry bilaterally. No wheezes, rales, or rhonchi. GASTROINTESTINAL: Abdomen soft, non-tender, nondistended. Positive bowel sounds MUSCULOSKELETAL: Extremities without clubbing, cyanosis, or edema. Pedal pulses appreciated NEUROLOGICAL: Awake and alert. Moves all extremity. Normal speech.no focal neurological deficit Procedures - s/p right VATS, mini thoracotomy, decortication 07/17 for organizing empyema. cc: Viraj Carpio MD Operative Report Date of Surgery: Jul 17, 2017 Preoperative Diagnosis: Postoperative Diagnosis: Procedure: 1. Right Video Assisted Thoracoscopic Surgery (VATS) 2. Right Posterolateral Muscle Sparing Mini-Thoracotomy 3. Decortication 4. Intercostal Nerve Block Surgeon: Viraj Carpio Clerical Assigner(s): Danny Sargent Operation and Findings: PREOPERATIVE DIAGNOSIS 1. Right Organized Empyema 2. Loculated Abscess Cavities 3. Pneumonia 4. Respiratory Failure POSTOPERATIVE DIAGNOSIS same PROCEDURES 1. Right Video Assisted Thoracoscopic Surgery (VATS) 2. Right Posterolateral Muscle Sparing Mini-Thoracotomy 3. Decortication 4. Intercostal Nerve Block SURGEON Viraj Carpio MD Date of Insertion: Jul 29, 2017 Date of Removal: Jul 29, 2017 Line: PICC (MIDLINE ON RIGHT SIDE) Side: Right A/P Problem List: (1) Empyema ICD Code: J86.9 - Pyothorax without fistula (2) S/P Right Thoracotomy with Decortication (3) right locualted pleural effusion Assessment and Plan 08/10: Continue efforts with physical therapy to improve mobility, WBC increased to 17,000 1 repeat CBC in a.m. 08/11: C awaiting mobility to improve in order to be discharged home, repeated WBC within normal limits A/P: 66-year-old female who presents with MSSA empyema status post thoracotomy. Status post intravenous ceftriaxone, now is on Keflex 3 week course to be completed 08/27. She is still not Hospital due to continued weakness, slowly improving, no prior source for SNF. Patient found to have severe hypovitaminosis D, likely osteomalacia possibly contributing to weakness. MSSA empyema - Status post thoracotomy. ID following, status post ceftriaxone, Continue Keflex 500 mg 4 times a day for 3 weeks until 08/27. Generalized weakness- Strength continues improving. However pain is limiting her movement, pain regimen changed 08/08/17. No benefits for rehabilitation or home health care. Continue therapy. Unstageable sacral ulcer. Continue wound care. Appreciate assistance Hypovitaminosis D-start high-dose vitamin D 50,000 units every week. Generalized pain-could be secondary to arthritis, Modic started, [place] switch to Percocet. Pain has improved. Continue with therapy, Flexeril trial if still with a lot of pain. Acute hypoxic respiratory failure-resolved COPD exacerbation - s/p right VATS, mini thoracotomy, decortication 07/17 for organizing empyema. Chest tube discontinued 07/22 - CT chest initially revealed cavitating pneumonia involving right upper lobe and left lower lobe - Extubated 07/21/17 at 1500 and tolerating well, continue duo nebs, stop prednisone 08/09/17. Septic shock- resolved. NSTEMI/Type II Demand Ischemia History of hypertension Pulmonary hypertension - Unlikely to be ACS. Continue Lopressor, Procardia, hydralazine, hydralazine as needed. Could be secondary to pain. Echo 07/16 showed EF 50-55%, no vegetations. Small pericardial effusion. Mild pulmonary hypertension 42 mmHg. Adjust antihypertensives as needed. Acute Kidney Injury-resolved. Acute protein calorie malnutrition- severe, consult dietary, on heart healthy diet. Hypokalemia-resolved Dehydration-resolved, recheck BMP in a few days. GI Prophylaxis Famotidine DVT Prophylaxis -- SCDs Discharge Planning s/p 4 weeks IV Abx, cont po Keflex 500 QID x 3 weeks started 08/06. Stop . Still very weak, continue physical therapy daily. No benefits for home health care or rehabilitation, ? [place]. Discharge once stable for home, patient participating with physical therapy. Catarina Gonzalez MD Aug 12, 2017 08:58
[2017-08-12] MEDS: COLLAGENASE OINT 30 GM TUBE TOPICAL SCH (09:00)
[2017-08-12] MEDS: POTASSIUM PHOSPHATE MONOBASIC 500 MG TAB PO SCH ×2 (09:00→21:54)
[2017-08-12] MEDS: LACTOBACILLUS ACIDOPHILUS TAB PO SCH ×3 (10:14→17:40)
[2017-08-12] MEDS: NIFEdipine 60 MG SUSTAINED RELEASE TAB PO SCH (10:14)
[2017-08-12] MEDS: ISOSORBIDE DINITRATE 40 MG SUSTAINED RELEASE TAB PO SCH (10:15)
[2017-08-12] MEDS: FAMOTIDINE 20 MG TAB PO SCH ×2 (10:15→21:54)
[2017-08-12] MEDS: METOPROLOL TARTRATE 25 MG TAB PO SCH ×2 (10:15→21:53)
[2017-08-12] MEDS: MELOXICAM 15 MG TAB PO SCH (10:15)
[2017-08-12] MEDS: SODIUM CHLORIDE 0.9% FLUSH 10 ML FLUSH IV FLUSH SCH ×2 (10:17→21:55)
--- NOTE | 2017-08-12 15:31 | HHI.PR ---
Subjective Remarks no acute event over night doing with PT Objective Vitals Vital Signs Date Time Temp Pulse Resp B/P (MAP) Pulse Ox O2 Delivery O2 Flow Rate FiO2 08/12/17 12:00 97.8 76 18 152/89 (110) 95 08/12/17 08:00 98.3 72 18 161/75 (103) 95 08/12/17 07:15 Room Air 08/12/17 04:00 98.0 73 20 138/80 (99) 95 08/12/17 00:00 97.9 80 20 142/74 (96) 95 08/11/17 20:00 94 08/11/17 20:00 Room Air 08/11/17 20:00 97.4 94 20 152/83 (106) 95 08/11/17 16:00 98.5 84 20 138/75 (96) 94 I/O 08/11/17 08/11/17 08/11/17 08/12/17 08/12/17 08/12/17 07:00 15:00 23:00 07:00 15:00 23:00 Intake Total 240 ml 720 ml 220 ml Output Total 350 ml 300 ml 200 ml Balance -110 ml 420 ml 20 ml Intake Oral 240 ml 720 ml 220 ml Output Urine Total 350 ml 300 ml 200 ml # Voids 3 # Bowel Movements 2 4 1 Result Diagram: 08/11/1771908/08/172156 Objective Remarks GENERAL: This is a well-nourished, well-developed patient, in no apparent distress. SKIN: No rashes, warm and dry HEAD: Atraumatic. Normocephalic. EYES: Pupils equal round and reactive. Extraocular motions intact. No scleral icterus. ENT: Nose without bleeding, or drainage, Airway patent. NECK: Trachea midline. Supple CARDIOVASCULAR: Regular rate and rhythm without murmurs, gallops, or rubs. RESPIRATORY: Fair air entry bilaterally. No wheezes, rales, or rhonchi. GASTROINTESTINAL: Abdomen soft, non-tender, nondistended. Positive bowel sounds MUSCULOSKELETAL: Extremities without clubbing, cyanosis, or edema. Pedal pulses appreciated NEUROLOGICAL: Awake and alert. Moves all extremity. Normal speech.no focal neurological deficit Procedures - s/p right VATS, mini thoracotomy, decortication 07/17 for organizing empyema. cc: Viraj Carpio MD Operative Report Date of Surgery: Jul 17, 2017 Preoperative Diagnosis: Postoperative Diagnosis: Procedure: 1. Right Video Assisted Thoracoscopic Surgery (VATS) 2. Right Posterolateral Muscle Sparing Mini-Thoracotomy 3. Decortication 4. Intercostal Nerve Block Surgeon: Viraj Carpio Welfare Aide(s): Danny Sargent Operation and Findings: PREOPERATIVE DIAGNOSIS 1. Right Organized Empyema 2. Loculated Abscess Cavities 3. Pneumonia 4. Respiratory Failure POSTOPERATIVE DIAGNOSIS same PROCEDURES 1. Right Video Assisted Thoracoscopic Surgery (VATS) 2. Right Posterolateral Muscle Sparing Mini-Thoracotomy 3. Decortication 4. Intercostal Nerve Block SURGEON Viraj Carpio MD Date of Insertion: Jul 29, 2017 Date of Removal: Jul 29, 2017 Line: PICC (MIDLINE ON RIGHT SIDE) Side: Right A/P Problem List: (1) Empyema ICD Code: J86.9 - Pyothorax without fistula (2) S/P Right Thoracotomy with Decortication (3) right locualted pleural effusion Assessment and Plan 08/10: Continue efforts with physical therapy to improve mobility, WBC increased to 17,000 1 repeat CBC in a.m. 08/11: C awaiting mobility to improve in order to be discharged home, repeated WBC within normal limits 08/12: cont current care A/P: 66-year-old female who presents with MSSA empyema status post thoracotomy. Status post intravenous ceftriaxone, now is on Keflex 3 week course to be completed 08/27. She is still not Hospital due to continued weakness, slowly improving, no prior source for SNF. Patient found to have severe hypovitaminosis D, likely osteomalacia possibly contributing to weakness. MSSA empyema - Status post thoracotomy. ID following, status post ceftriaxone, Continue Keflex 500 mg 4 times a day for 3 weeks until 08/27. Generalized weakness- Strength continues improving. However pain is limiting her movement, pain regimen changed 08/08/17. No benefits for rehabilitation or home health care. Continue therapy. Unstageable sacral ulcer. Continue wound care. Appreciate assistance Hypovitaminosis D-start high-dose vitamin D 50,000 units every week. Generalized pain-could be secondary to arthritis, Modic started, [place] switch to Percocet. Pain has improved. Continue with therapy, Flexeril trial if still with a lot of pain. Acute hypoxic respiratory failure-resolved COPD exacerbation - s/p right VATS, mini thoracotomy, decortication 07/17 for organizing empyema. Chest tube discontinued 07/22 - CT chest initially revealed cavitating pneumonia involving right upper lobe and left lower lobe - Extubated 07/21/17 at 1500 and tolerating well, continue duo nebs, stop prednisone 08/09/17. Septic shock- resolved. NSTEMI/Type II Demand Ischemia History of hypertension Pulmonary hypertension - Unlikely to be ACS. Continue Lopressor, Procardia, hydralazine, hydralazine as needed. Could be secondary to pain. Echo 07/16 showed EF 50-55%, no vegetations. Small pericardial effusion. Mild pulmonary hypertension 42 mmHg. Adjust antihypertensives as needed. Acute Kidney Injury-resolved. Acute protein calorie malnutrition- severe, consult dietary, on heart healthy diet. Hypokalemia-resolved Dehydration-resolved, recheck BMP in a few days. GI Prophylaxis Famotidine DVT Prophylaxis -- SCDs Discharge Planning s/p 4 weeks IV Abx, cont po Keflex 500 QID x 3 weeks started 08/06. Stop . Still very weak, continue physical therapy daily. No benefits for home health care or rehabilitation, ? [place]. Discharge once stable for home, patient participating with physical therapy. Catarina Gonzalez MD Aug 12, 2017 15:31
[2017-08-12] MEDS ORDERED: CYCLOBENZAPRINE HCL 10 MG TAB PO ONE (17:45)
[2017-08-12] MEDS: ONDANSETRON HCL 4 MG/2 ML VIAL IV PUSH PRN (21:50)
[2017-08-13] VITALS: BP 113/64; PULSE 77; RESP 20; TEMP 98.4; O2SAT 93
[2017-08-13] MEDS: CEPHALEXIN MONOHYDRATE 500 MG CAP PO SCH ×5 (01:15→22:36)
[2017-08-13] MEDS: oxyCODONE/ACETAMINOPHEN 10 MG/325 MG TAB PO PRN ×6 (02:17→22:36)
[2017-08-13 04:00] VITALS: BP 133/81; PULSE 74; RESP 20; TEMP 97.3; O2SAT 96
[2017-08-13] MEDS: CHLORHEXIDINE GLUCONATE 2 % 1 PACK (2 CLOTHS) TOP SCH (04:00)
[2017-08-13] MEDS: BETHANECHOL CHL 25 MG TAB PO SCH ×3 (05:55→21:11)
[2017-08-13] MEDS: hydrALAZINE HCL 10 MG TAB PO SCH ×3 (05:55→21:11)
[2017-08-13 08:00] VITALS: BP 154/75; PULSE 76; PULSE 77; RESP 20; TEMP 97.7; O2SAT 93
[2017-08-13] MEDS: CHLORHEXIDINE 0.12% (ORAL KIT) 15 ML CUP MT SCH ×2 (08:00→20:00)
[2017-08-13] MEDS: COLLAGENASE OINT 30 GM TUBE TOPICAL SCH (09:00)
[2017-08-13] MEDS: MELOXICAM 15 MG TAB PO SCH (09:33)
[2017-08-13] MEDS: ISOSORBIDE DINITRATE 40 MG SUSTAINED RELEASE TAB PO SCH (09:33)
[2017-08-13] MEDS: NIFEdipine 60 MG SUSTAINED RELEASE TAB PO SCH (09:33)
[2017-08-13] MEDS: LACTOBACILLUS ACIDOPHILUS TAB PO SCH ×3 (09:33→18:00)
[2017-08-13] MEDS: METOPROLOL TARTRATE 25 MG TAB PO SCH ×2 (09:33→21:12)
[2017-08-13] MEDS: FAMOTIDINE 20 MG TAB PO SCH ×2 (09:33→21:10)
[2017-08-13] MEDS: SODIUM CHLORIDE 0.9% FLUSH 10 ML FLUSH IV FLUSH SCH ×2 (09:34→21:12)
[2017-08-13] MEDS: POTASSIUM PHOSPHATE MONOBASIC 500 MG TAB PO SCH ×2 (09:34→21:10)
[2017-08-13 12:00] VITALS: BP 154/75; PULSE 77; RESP 20; TEMP 97.7; O2SAT 93
--- NOTE | 2017-08-13 12:38 | HHI.PR ---
Subjective Remarks reported doing well with PT still have some generalized pain Objective Vitals Vital Signs Date Time Temp Pulse Resp B/P (MAP) Pulse Ox O2 Delivery O2 Flow Rate FiO2 08/13/17 08:00 76 08/13/17 04:00 97.3 74 20 133/81 (98) 96 08/13/17 00:00 98.4 77 20 113/64 (80) 93 08/12/17 20:00 Room Air 08/12/17 20:00 97.8 64 18 128/80 (96) 95 08/12/17 20:00 93 08/12/17 16:00 97.9 79 20 119/63 (81) 92 I/O 08/12/17 08/12/17 08/12/17 08/13/17 08/13/17 08/13/17 06:59 14:59 22:59 06:59 14:59 22:59 Intake Total 220 ml 480 ml 240 ml Output Total 200 ml 350 ml Balance 20 ml 480 ml -110 ml Intake Oral 220 ml 480 ml 240 ml Output Urine Total 200 ml 350 ml # Voids 2 1 # Bowel Movements 1 3 2 Result Diagram: 08/11/17 0720 Objective Remarks GENERAL: This is a well-nourished, well-developed patient, in no apparent distress. SKIN: No rashes, warm and dry HEAD: Atraumatic. Normocephalic. EYES: Pupils equal round and reactive. Extraocular motions intact. No scleral icterus. ENT: Nose without bleeding, or drainage, Airway patent. NECK: Trachea midline. Supple CARDIOVASCULAR: Regular rate and rhythm without murmurs, gallops, or rubs. RESPIRATORY: Fair air entry bilaterally. No wheezes, rales, or rhonchi. GASTROINTESTINAL: Abdomen soft, non-tender, nondistended. Positive bowel sounds MUSCULOSKELETAL: Extremities without clubbing, cyanosis, or edema. Pedal pulses appreciated NEUROLOGICAL: Awake and alert. Moves all extremity. Normal speech.no focal neurological deficit Procedures - s/p right VATS, mini thoracotomy, decortication 07/17 for organizing empyema. cc: Viraj Carpio MD Operative Report Date of Surgery: Jul 17, 2017 Preoperative Diagnosis: Postoperative Diagnosis: Procedure: 1. Right Video Assisted Thoracoscopic Surgery (VATS) 2. Right Posterolateral Muscle Sparing Mini-Thoracotomy 3. Decortication 4. Intercostal Nerve Block Surgeon: Viraj Carpio [employer] Coordinator(s): Danny Sargent Operation and Findings: PREOPERATIVE DIAGNOSIS 1. Right Organized Empyema 2. Loculated Abscess Cavities 3. Pneumonia 4. Respiratory Failure POSTOPERATIVE DIAGNOSIS same PROCEDURES 1. Right Video Assisted Thoracoscopic Surgery (VATS) 2. Right Posterolateral Muscle Sparing Mini-Thoracotomy 3. Decortication 4. Intercostal Nerve Block SURGEON Viraj Carpio MD Date of Insertion: Jul 29, 2017 Date of Removal: Jul 29, 2017 Line: PICC (MIDLINE ON RIGHT SIDE) Side: Right A/P Problem List: (1) Empyema ICD Code: J86.9 - Pyothorax without fistula (2) S/P Right Thoracotomy with Decortication (3) right locualted pleural effusion Assessment and Plan 08/13 awaiting mobility to improve in order to be discharged home A/P: 66-year-old female who presents with MSSA empyema status post thoracotomy. Status post intravenous ceftriaxone, now is on Keflex 3 week course to be completed 08/27. She is still not Hospital due to continued weakness, slowly improving, no prior source for SNF. Patient found to have severe hypovitaminosis D, likely osteomalacia possibly contributing to weakness. MSSA empyema - Status post thoracotomy. ID following, status post ceftriaxone, Continue Keflex 500 mg 4 times a day for 3 weeks until 08/27. Generalized weakness- Strength continues improving. However pain is limiting her movement, pain regimen changed 08/08/17. No benefits for rehabilitation or home health care. Continue therapy. Unstageable sacral ulcer. Continue wound care. Appreciate assistance Hypovitaminosis D-start high-dose vitamin D 50,000 units every week. Generalized pain-could be secondary to arthritis, Modic started, [place] switch to Percocet. Pain has improved. Continue with therapy, Flexeril trial if still with a lot of pain. Acute hypoxic respiratory failure-resolved COPD exacerbation - s/p right VATS, mini thoracotomy, decortication 07/17 for organizing empyema. Chest tube discontinued 07/22 - CT chest initially revealed cavitating pneumonia involving right upper lobe and left lower lobe - Extubated 07/21/17 at 1500 and tolerating well, continue duo nebs, stop prednisone 08/09/17. Septic shock- resolved. NSTEMI/Type II Demand Ischemia History of hypertension Pulmonary hypertension - Unlikely to be ACS. Continue Lopressor, Procardia, hydralazine, hydralazine as needed. Could be secondary to pain. Echo 07/16 showed EF 50-55%, no vegetations. Small pericardial effusion. Mild pulmonary hypertension 42 mmHg. Adjust antihypertensives as needed. Acute Kidney Injury-resolved. Acute protein calorie malnutrition- severe, consult dietary, on heart healthy diet. Hypokalemia-resolved Dehydration-resolved, recheck BMP in a few days. GI Prophylaxis Famotidine DVT Prophylaxis -- SCDs Discharge Planning s/p 4 weeks IV Abx, cont po Keflex 500 QID x 3 weeks started 08/06. Stop . Still very weak, continue physical therapy daily. No benefits for home health care or rehabilitation, ? [place]. Discharge once stable for home, patient participating with physical therapy. Catarina Gonzalez MD Aug 13, 2017 12:38
[2017-08-13 16:00] VITALS: BP 142/79; PULSE 84; RESP 20; TEMP 98.3; O2SAT 94
[2017-08-13 20:00] VITALS: BP 136/81; PULSE 85; PULSE 89; RESP 18; TEMP 98; O2SAT 96
[2017-08-13] MEDS: ONDANSETRON HCL 4 MG/2 ML VIAL IV PUSH PRN (22:36)
[2017-08-13] MEDS: SODIUM CHLORIDE 0.9% FLUSH 10 ML FLUSH IV FLUSH PRN (22:37)
[2017-08-14] VITALS: BP 137/80; PULSE 72; RESP 18; TEMP 98; O2SAT 95
[2017-08-14] MEDS: oxyCODONE/ACETAMINOPHEN 10 MG/325 MG TAB PO PRN ×6 (02:56→23:05)
[2017-08-14] MEDS: CHLORHEXIDINE GLUCONATE 2 % 1 PACK (2 CLOTHS) TOP SCH (03:02)
[2017-08-14 04:00] VITALS: BP 118/68; PULSE 69; RESP 16; TEMP 98.3; O2SAT 95
[2017-08-14] MEDS: BETHANECHOL CHL 25 MG TAB PO SCH ×3 (06:15→20:15)
[2017-08-14] MEDS: hydrALAZINE HCL 10 MG TAB PO SCH ×3 (06:15→20:14)
[2017-08-14] MEDS: CEPHALEXIN MONOHYDRATE 500 MG CAP PO SCH ×4 (06:16→23:05)
[2017-08-14] MEDS: SODIUM CHLORIDE 0.9% FLUSH 10 ML FLUSH IV FLUSH SCH ×2 (07:40→20:13)
[2017-08-14 08:00] VITALS: BP 137/76; PULSE 72; RESP 20; TEMP 97.4; O2SAT 95
[2017-08-14] MEDS: CHLORHEXIDINE 0.12% (ORAL KIT) 15 ML CUP MT SCH ×2 (08:00→20:00)
[2017-08-14] MEDS: FAMOTIDINE 20 MG TAB PO SCH ×2 (08:27→20:13)
[2017-08-14] MEDS: ISOSORBIDE DINITRATE 40 MG SUSTAINED RELEASE TAB PO SCH (08:27)
[2017-08-14] MEDS: LACTOBACILLUS ACIDOPHILUS TAB PO SCH ×3 (08:27→17:10)
[2017-08-14] MEDS: NIFEdipine 60 MG SUSTAINED RELEASE TAB PO SCH (08:27)
[2017-08-14] MEDS: METOPROLOL TARTRATE 25 MG TAB PO SCH ×2 (08:27→20:13)
[2017-08-14] MEDS: POTASSIUM PHOSPHATE MONOBASIC 500 MG TAB PO SCH ×2 (08:27→20:12)
[2017-08-14] MEDS: MELOXICAM 15 MG TAB PO SCH (08:27)
[2017-08-14] MEDS: COLLAGENASE OINT 30 GM TUBE TOPICAL SCH (08:28)
[2017-08-14 11:57] VITALS: BP 136/75; PULSE 75; RESP 20; TEMP 97.4; O2SAT 96
--- NOTE | 2017-08-14 12:11 | HHI.PR ---
Subjective Remarks Patient reports she is feeling okay. She states she is getting stronger. She took a couple of steps with PT. [facility] and is supposed to be helping her when she gets out of the hospital. Objective Vitals Vital Signs Date Time Temp Pulse Resp B/P (MAP) Pulse Ox O2 Delivery O2 Flow Rate FiO2 08/14/17 11:57 97.4 75 20 136/75 (95) 96 08/14/17 08:00 97.4 72 20 137/76 (96) 95 08/14/17 04:00 98.3 69 16 118/68 (85) 95 08/14/17 00:00 98.0 72 18 137/80 (99) 95 08/13/17 20:00 Room Air 08/13/17 20:00 98.0 85 18 136/81 (99) 96 08/13/17 20:00 89 08/13/17 16:00 98.3 84 20 142/79 (100) 94 I/O 08/13/17 08/13/17 08/13/17 08/14/17 08/14/17 08/14/17 07:00 15:00 23:00 07:00 15:00 23:00 Intake Total 240 ml 840 ml 480 ml Output Total 350 ml 400 ml Balance -110 ml 840 ml 80 ml Intake Oral 240 ml 840 ml 480 ml Output Urine Total 350 ml 400 ml # Voids 1 2 # Bowel Movements 2 2 4 Result Diagram: 08/11/17 0720 Objective Remarks GENERAL: This is a well-nourished, well-developed patient, in no apparent distress. CARDIOVASCULAR: Normal rate and regular rhythm without murmurs, gallops, or rubs. RESPIRATORY: Good respiratory efforts. Breath sounds equal and clear to auscultation bilaterally. GASTROINTESTINAL: Abdomen soft, non-tender, non-distended. Normal active bowel sounds MUSCULOSKELETAL: Extremities without cyanosis, or edema. NEURO: Alert & Oriented x4 to person, place, time, situation. Moves all ext x4. Generally weak. PSYCH: Appropriate mood and affect. Procedures - s/p right VATS, mini thoracotomy, decortication 07/17 for organizing empyema. cc: Viraj Carpio MD Operative Report Date of Surgery: Jul 17, 2017 Preoperative Diagnosis: Postoperative Diagnosis: Procedure: 1. Right Video Assisted Thoracoscopic Surgery (VATS) 2. Right Posterolateral Muscle Sparing Mini-Thoracotomy 3. Decortication 4. Intercostal Nerve Block Surgeon: Viraj Carpio Heel Brusher(s): Danny Sargent Operation and Findings: PREOPERATIVE DIAGNOSIS 1. Right Organized Empyema 2. Loculated Abscess Cavities 3. Pneumonia 4. Respiratory Failure POSTOPERATIVE DIAGNOSIS same PROCEDURES 1. Right Video Assisted Thoracoscopic Surgery (VATS) 2. Right Posterolateral Muscle Sparing Mini-Thoracotomy 3. Decortication 4. Intercostal Nerve Block SURGEON Viraj Carpio MD Date of Insertion: Jul 29, 2017 Date of Removal: Jul 29, 2017 Line: PICC (MIDLINE ON RIGHT SIDE) Side: Right A/P Problem List: (1) Empyema ICD Code: J86.9 - Pyothorax without fistula (2) S/P Right Thoracotomy with Decortication (3) right locualted pleural effusion Assessment and Plan 66-year-old female who presents with MSSA empyema status post thoracotomy. Status post intravenous ceftriaxone, now is on Keflex 3 week course to be completed 08/27. She is still hospitalized due to continued weakness, slowly improving, no failure source for SNF. Patient found to have severe hypovitaminosis D, likely osteomalacia possibly contributing to weakness. MSSA empyema - Status post thoracotomy. ID following, status post ceftriaxone, Continue Keflex 500 mg 4 times a day for 3 weeks until 08/27. Generalized weakness- Strength continues improving. However pain is limiting her movement, pain regimen changed 08/08/17. No benefits for rehabilitation or home health care. Continue therapy. Unstageable sacral ulcer. Continue wound care. Appreciate assistance Hypovitaminosis D-start high-dose vitamin D 50,000 units every week. Generalized pain-could be secondary to arthritis, Modic started, [place] switch to Percocet. Pain has improved. Continue with therapy, Flexeril trial if still with a lot of pain. Acute hypoxic respiratory failure-resolved COPD exacerbation - s/p right VATS, mini thoracotomy, decortication 07/17 for organizing empyema. Chest tube discontinued 07/22 - CT chest initially revealed cavitating pneumonia involving right upper lobe and left lower lobe - Extubated 07/21/17 at 1500 and tolerating well, continue duo nebs, stop prednisone 08/09/17. Septic shock- resolved. NSTEMI/Type II Demand Ischemia History of hypertension Pulmonary hypertension - Unlikely to be ACS. Continue Lopressor, Procardia, hydralazine, hydralazine as needed. Could be secondary to pain. Echo 07/16 showed EF 50-55%, no vegetations. Small pericardial effusion. Mild pulmonary hypertension 42 mmHg. Adjust antihypertensives as needed. Acute Kidney Injury-resolved. Acute protein calorie malnutrition- severe, consult dietary, on heart healthy diet. Hypokalemia-resolved Dehydration-resolved, recheck BMP in a few days. GI Prophylaxis Famotidine DVT Prophylaxis -- SCDs Discharge Planning Discharge home pending improvement and physical deconditioning. Daily PT. Saulo Hernández MD Aug 14, 2017 12:11
[2017-08-14] MEDS: ONDANSETRON HCL 4 MG/2 ML VIAL IV PUSH PRN ×2 (14:20→20:09)
[2017-08-14 15:43] VITALS: BP 109/65; PULSE 77; RESP 20; TEMP 97.6; O2SAT 96
--- NOTE | 2017-08-14 16:20 | PD.WCN.NOT ---
Wound Consult Additional Information: Attempted to see patient. patient was not seen. She was up in chair and had just gotten up 20 minutes ago. RN Tia is unavailable [facility]real [facility] Aug 14, 2017 16:20
[2017-08-14 20:00] VITALS: BP 134/70; PULSE 79; PULSE 81; RESP 17; TEMP 97.8; O2SAT 95
[2017-08-15] VITALS (7 sets, daily range): BP systolic 130–149; BP diastolic 66–79; PULSE 69–85; RESP 18–19; TEMP 97.4–98.6; O2SAT 94–97
[2017-08-15] MEDS: ONDANSETRON HCL 4 MG/2 ML VIAL IV PUSH PRN ×3 (02:19→18:04)
[2017-08-15] MEDS: oxyCODONE/ACETAMINOPHEN 10 MG/325 MG TAB PO PRN ×5 (03:14→20:27)
[2017-08-15] MEDS: CHLORHEXIDINE GLUCONATE 2 % 1 PACK (2 CLOTHS) TOP SCH (04:00)
[2017-08-15] MEDS: hydrALAZINE HCL 10 MG TAB PO SCH ×3 (06:37→20:27)
[2017-08-15] MEDS: CEPHALEXIN MONOHYDRATE 500 MG CAP PO SCH ×3 (06:38→18:03)
[2017-08-15] MEDS: BETHANECHOL CHL 25 MG TAB PO SCH ×3 (06:38→20:26)
[2017-08-15] MEDS: SODIUM CHLORIDE 0.9% FLUSH 10 ML FLUSH IV FLUSH SCH ×2 (07:30→20:26)
[2017-08-15] MEDS: FAMOTIDINE 20 MG TAB PO SCH ×2 (07:58→20:27)
[2017-08-15] MEDS: CHLORHEXIDINE 0.12% (ORAL KIT) 15 ML CUP MT SCH ×2 (07:58→19:23)
[2017-08-15] MEDS: MELOXICAM 15 MG TAB PO SCH (07:58)
[2017-08-15] MEDS: NIFEdipine 60 MG SUSTAINED RELEASE TAB PO SCH (07:58)
[2017-08-15] MEDS: METOPROLOL TARTRATE 25 MG TAB PO SCH ×2 (07:58→20:27)
[2017-08-15] MEDS: LACTOBACILLUS ACIDOPHILUS TAB PO SCH ×3 (07:58→18:04)
[2017-08-15] MEDS: ISOSORBIDE DINITRATE 40 MG SUSTAINED RELEASE TAB PO SCH (07:58)
[2017-08-15] MEDS: COLLAGENASE OINT 30 GM TUBE TOPICAL SCH (07:59)
[2017-08-15] MEDS: POTASSIUM PHOSPHATE MONOBASIC 500 MG TAB PO SCH ×2 (08:10→20:26)
[2017-08-15] MEDS: ERGOCALCIFEROL (VIT D2) 50,000 UNIT CAP PO SCH (10:47)
--- NOTE | 2017-08-15 14:24 | HHI.PR ---
Subjective Remarks Patient reports she is feeling okay. Continue to work with physical therapy. States her girlfriend did not make it to town last night, supposed to arrive today. Objective Vitals Vital Signs Date Time Temp Pulse Resp B/P (MAP) Pulse Ox O2 Delivery O2 Flow Rate FiO2 08/15/17 12:30 Room Air 08/15/17 12:06 97.4 74 19 130/66 (87) 97 08/15/17 08:06 98.4 73 18 149/76 (100) 95 08/15/17 04:00 97.5 71 18 130/66 (87) 94 08/15/17 00:00 97.9 71 18 138/70 (92) 94 08/14/17 20:00 97.8 81 17 134/70 (91) 95 08/14/17 20:00 79 08/14/17 20:00 Room Air 08/14/17 15:43 97.6 77 20 109/65 (80) 96 08/14/17 15:25 Room Air I/O 08/14/17 08/14/17 08/14/17 08/15/17 08/15/17 08/15/17 07:00 15:00 23:00 07:00 15:00 23:00 Intake Total 480 ml 360 ml 480 ml Output Total 400 ml 450 ml 1900 ml Balance 80 ml -90 ml -1420 ml Intake Oral 480 ml 360 ml 480 ml Output Urine Total 400 ml 450 ml 1900 ml # Bowel Movements 4 Result Diagram: 08/11/17 0720 Objective Remarks GENERAL: Patient appearing older than stated age, in no apparent distress. CARDIOVASCULAR: Normal rate and regular rhythm without murmurs, gallops, or rubs. RESPIRATORY: Good respiratory efforts. Breath sounds equal and clear to auscultation bilaterally. GASTROINTESTINAL: Abdomen soft, non-tender, non-distended. Normal active bowel sounds MUSCULOSKELETAL: Extremities without cyanosis, or edema. NEURO: Alert & Oriented x4 to person, place, time, situation. Moves all ext x4. Generally weak. PSYCH: Appropriate mood and affect. Procedures - s/p right VATS, mini thoracotomy, decortication 07/17 for organizing empyema. cc: Viraj Carpio MD Operative Report Date of Surgery: Jul 17, 2017 Preoperative Diagnosis: Postoperative Diagnosis: Procedure: 1. Right Video Assisted Thoracoscopic Surgery (VATS) 2. Right Posterolateral Muscle Sparing Mini-Thoracotomy 3. Decortication 4. Intercostal Nerve Block Surgeon: Viraj Carpio Floor Director(s): Danny Sargent Operation and Findings: PREOPERATIVE DIAGNOSIS 1. Right Organized Empyema 2. Loculated Abscess Cavities 3. Pneumonia 4. Respiratory Failure POSTOPERATIVE DIAGNOSIS same PROCEDURES 1. Right Video Assisted Thoracoscopic Surgery (VATS) 2. Right Posterolateral Muscle Sparing Mini-Thoracotomy 3. Decortication 4. Intercostal Nerve Block SURGEON Viraj Carpio MD Date of Insertion: Jul 29, 2017 Date of Removal: Jul 29, 2017 Line: PICC (MIDLINE ON RIGHT SIDE) Side: Right A/P Problem List: (1) Empyema ICD Code: J86.9 - Pyothorax without fistula (2) S/P Right Thoracotomy with Decortication (3) right locualted pleural effusion Assessment and Plan 66-year-old female who presents with MSSA empyema status post thoracotomy. Status post intravenous ceftriaxone, now is on Keflex 3 week course to be completed 08/27. She is still hospitalized due to continued weakness, slowly improving, no failure source for SNF. Patient found to have severe hypovitaminosis D, likely osteomalacia possibly contributing to weakness. MSSA empyema - Status post thoracotomy. ID following, status post ceftriaxone, Continue Keflex 500 mg 4 times a day for 3 weeks until 08/27. Generalized weakness- Strength continues to improve slowly. No benefits for rehabilitation or home health care. Continue therapy. Unstageable sacral ulcer. Continue wound care. Appreciate assistance Hypovitaminosis D-start high-dose vitamin D 50,000 units every week. Generalized pain-could be secondary to arthritis, Modic started, [place] switch to Percocet. Pain has improved. Continue with therapy, Flexeril trial if still with a lot of pain. Acute hypoxic respiratory failure-resolved COPD exacerbation - s/p right VATS, mini thoracotomy, decortication 07/17 for organizing empyema. Chest tube discontinued 07/22 - CT chest initially revealed cavitating pneumonia involving right upper lobe and left lower lobe - Extubated 07/21/17 at 1500 and tolerating well, continue duo nebs, stop prednisone 08/09/17. Septic shock- resolved. NSTEMI/Type II Demand Ischemia History of hypertension Pulmonary hypertension - Unlikely to be ACS. Continue Lopressor, Procardia, hydralazine, hydralazine as needed. Could be secondary to pain. Echo 07/16 showed EF 50-55%, no vegetations. Small pericardial effusion. Mild pulmonary hypertension 42 mmHg. Adjust antihypertensives as needed. Acute protein calorie malnutrition- severe, consult dietary, on heart healthy diet. Hypokalemia-resolved GI Prophylaxis Famotidine DVT Prophylaxis -- SCDs Discharge Planning Discharge home pending improvement and physical deconditioning. Daily PT. Saulo Hernández MD Aug 15, 2017 14:24
[2017-08-16] VITALS (7 sets, daily range): BP systolic 125–145; BP diastolic 67–76; PULSE 69–86; RESP 16–20; TEMP 97.3–98.6; O2SAT 94–96
[2017-08-16] MEDS: oxyCODONE/ACETAMINOPHEN 10 MG/325 MG TAB PO PRN ×5 (00:21→23:24)
[2017-08-16] MEDS: CEPHALEXIN MONOHYDRATE 500 MG CAP PO SCH ×5 (00:21→23:24)
[2017-08-16] MEDS: diphenhydrAMINE HCL 25 MG CAP PO PRN (00:21)
[2017-08-16] MEDS: CHLORHEXIDINE GLUCONATE 2 % 1 PACK (2 CLOTHS) TOP SCH (04:00)
[2017-08-16] MEDS: BETHANECHOL CHL 25 MG TAB PO SCH ×3 (04:45→20:32)
[2017-08-16] MEDS: hydrALAZINE HCL 10 MG TAB PO SCH ×3 (04:45→20:32)
[2017-08-16] MEDS: CHLORHEXIDINE 0.12% (ORAL KIT) 15 ML CUP MT SCH ×2 (08:00→20:00)
[2017-08-16] MEDS: COLLAGENASE OINT 30 GM TUBE TOPICAL SCH (09:00)
[2017-08-16] MEDS: NIFEdipine 60 MG SUSTAINED RELEASE TAB PO SCH (09:04)
[2017-08-16] MEDS: MELOXICAM 15 MG TAB PO SCH (09:04)
[2017-08-16] MEDS: ISOSORBIDE DINITRATE 40 MG SUSTAINED RELEASE TAB PO SCH (09:04)
[2017-08-16] MEDS: FAMOTIDINE 20 MG TAB PO SCH ×2 (09:04→20:32)
[2017-08-16] MEDS: POTASSIUM PHOSPHATE MONOBASIC 500 MG TAB PO SCH ×2 (09:06→20:32)
[2017-08-16] MEDS: LACTOBACILLUS ACIDOPHILUS TAB PO SCH ×3 (09:06→19:13)
[2017-08-16] MEDS: METOPROLOL TARTRATE 25 MG TAB PO SCH ×2 (09:06→20:33)
[2017-08-16] MEDS: oxyCODONE/ACETAMINOPHEN 5 MG/325 MG TAB PO PRN (09:08)
[2017-08-16] MEDS: SODIUM CHLORIDE 0.9% FLUSH 10 ML FLUSH IV FLUSH SCH ×2 (09:11→20:31)
--- NOTE | 2017-08-16 11:08 | HHI.PR ---
Subjective Remarks No new issues. Objective Vitals Vital Signs Date Time Temp Pulse Resp B/P (MAP) Pulse Ox O2 Delivery O2 Flow Rate FiO2 08/16/17 08:00 97.3 73 20 134/76 (95) 94 08/16/17 04:00 Room Air 08/16/17 04:00 98.2 78 19 137/67 (90) 96 08/16/17 00:00 98.1 80 19 133/72 (92) 94 08/16/17 00:00 Room Air 08/15/17 20:00 Room Air 08/15/17 20:00 98.6 84 19 130/68 (88) 94 08/15/17 20:00 85 08/15/17 16:11 98.1 83 18 130/79 (96) 94 08/15/17 12:30 Room Air 08/15/17 12:06 97.4 74 19 130/66 (87) 97 I/O 08/15/17 08/15/17 08/15/17 08/16/17 08/16/17 08/16/17 07:00 15:00 23:00 07:00 15:00 23:00 Intake Total 480 ml 720 ml 480 ml Output Total 1900 ml 1000 ml 2100 ml Balance -1420 ml -280 ml -1620 ml Intake Oral 480 ml 720 ml 480 ml Output Urine Total 1900 ml 1000 ml 2100 ml # Bowel Movements 1 1 Objective Remarks GENERAL: Patient appearing older than stated age, in no apparent distress. CARDIOVASCULAR: Normal rate and regular rhythm without murmurs, gallops, or rubs. RESPIRATORY: Good respiratory efforts. Breath sounds equal and clear to auscultation bilaterally. GASTROINTESTINAL: Abdomen soft, non-tender, non-distended. Normal active bowel sounds MUSCULOSKELETAL: Extremities without cyanosis, or edema. NEURO: Alert & Oriented x4 to person, place, time, situation. Moves all ext x4. Generally weak. PSYCH: Appropriate mood and affect. Procedures - s/p right VATS, mini thoracotomy, decortication 07/17 for organizing empyema. cc: Viraj Carpio MD Operative Report Date of Surgery: Jul 17, 2017 Preoperative Diagnosis: Postoperative Diagnosis: Procedure: 1. Right Video Assisted Thoracoscopic Surgery (VATS) 2. Right Posterolateral Muscle Sparing Mini-Thoracotomy 3. Decortication 4. Intercostal Nerve Block Surgeon: Viraj Carpio Dairy Lab Technician(s): Danny Sargent Operation and Findings: PREOPERATIVE DIAGNOSIS 1. Right Organized Empyema 2. Loculated Abscess Cavities 3. Pneumonia 4. Respiratory Failure POSTOPERATIVE DIAGNOSIS same PROCEDURES 1. Right Video Assisted Thoracoscopic Surgery (VATS) 2. Right Posterolateral Muscle Sparing Mini-Thoracotomy 3. Decortication 4. Intercostal Nerve Block SURGEON Viraj Carpio MD Date of Insertion: Jul 29, 2017 Date of Removal: Jul 29, 2017 Line: PICC (MIDLINE ON RIGHT SIDE) Side: Right A/P Problem List: (1) Empyema ICD Code: J86.9 - Pyothorax without fistula (2) S/P Right Thoracotomy with Decortication (3) right locualted pleural effusion Assessment and Plan 66-year-old female who presents with MSSA empyema status post thoracotomy. Status post intravenous ceftriaxone, now is on Keflex 3 week course to be completed 08/27. She is still hospitalized due to continued weakness, slowly improving, no payor source for SNF. Patient found to have severe hypovitaminosis D, likely osteomalacia possibly contributing to weakness. MSSA empyema - Status post thoracotomy. ID following, status post ceftriaxone, Continue Keflex 500 mg 4 times a day for 3 weeks until 08/27. Generalized weakness- Strength continues to improve slowly. No benefits for rehabilitation or home health care. Continue therapy. Unstageable sacral ulcer. Continue wound care. Frequent turning. Discussed with patient. Hypovitaminosis D-start high-dose vitamin D 50,000 units every week. Generalized pain-could be secondary to arthritis, Modic started, [place] switch to Percocet. Pain has improved. Continue PT. Acute hypoxic respiratory failure-resolved COPD exacerbation - s/p right VATS, mini thoracotomy, decortication 07/17 for organizing empyema. Chest tube discontinued 07/22 - CT chest initially revealed cavitating pneumonia involving right upper lobe and left lower lobe - Extubated 07/21/17 at 1500 and tolerating well, continue duo nebs, stop prednisone 08/09/17. Septic shock- resolved. NSTEMI/Type II Demand Ischemia History of hypertension Pulmonary hypertension - Unlikely to be ACS. Continue Lopressor, Procardia, hydralazine, hydralazine as needed. Could be secondary to pain. Echo 07/16 showed EF 50-55%, no vegetations. Small pericardial effusion. Mild pulmonary hypertension 42 mmHg. Adjust antihypertensives as needed. Acute protein calorie malnutrition- severe, consult dietary, on heart healthy diet. Hypokalemia-resolved GI Prophylaxis Famotidine DVT Prophylaxis -- SCDs Discharge Planning Discharge home pending improvement and physical deconditioning. Daily PT. patient has no insurance benefit for snf facility. Saulo Hernández MD Aug 16, 2017 11:08
[2017-08-16] MEDS: ONDANSETRON HCL 4 MG/2 ML VIAL IV PUSH PRN (20:32)
[2017-08-17] VITALS: BP 136/75; PULSE 75; RESP 18; TEMP 97.8; O2SAT 94
[2017-08-17 04:00] VITALS: BP 145/85; PULSE 68; RESP 18; TEMP 97.5; O2SAT 95
[2017-08-17] MEDS: CHLORHEXIDINE GLUCONATE 2 % 1 PACK (2 CLOTHS) TOP SCH (04:00)
[2017-08-17] MEDS: CEPHALEXIN MONOHYDRATE 500 MG CAP PO SCH ×2 (04:43→12:45)
[2017-08-17] MEDS: BETHANECHOL CHL 25 MG TAB PO SCH ×2 (04:43→12:46)
[2017-08-17] MEDS: oxyCODONE/ACETAMINOPHEN 10 MG/325 MG TAB PO PRN ×2 (04:44→08:37)
[2017-08-17] MEDS: hydrALAZINE HCL 10 MG TAB PO SCH ×2 (04:44→12:46)
[2017-08-17 08:00] VITALS: BP 162/95; PULSE 73; PULSE 74; RESP 20; TEMP 98; O2SAT 93
[2017-08-17] MEDS: CHLORHEXIDINE 0.12% (ORAL KIT) 15 ML CUP MT SCH (08:00)
[2017-08-17] MEDS: FAMOTIDINE 20 MG TAB PO SCH (08:36)
[2017-08-17] MEDS: NIFEdipine 60 MG SUSTAINED RELEASE TAB PO SCH (08:36)
[2017-08-17] MEDS: MELOXICAM 15 MG TAB PO SCH (08:36)
[2017-08-17] MEDS: POTASSIUM PHOSPHATE MONOBASIC 500 MG TAB PO SCH (08:37)
[2017-08-17] MEDS: LACTOBACILLUS ACIDOPHILUS TAB PO SCH ×2 (08:37→12:45)
[2017-08-17] MEDS: ISOSORBIDE DINITRATE 40 MG SUSTAINED RELEASE TAB PO SCH (08:38)
[2017-08-17] MEDS: METOPROLOL TARTRATE 25 MG TAB PO SCH (08:38)
[2017-08-17] MEDS: COLLAGENASE OINT 30 GM TUBE TOPICAL SCH (09:00)
[2017-08-17] MEDS: SODIUM CHLORIDE 0.9% FLUSH 10 ML FLUSH IV FLUSH SCH (10:33)
[2017-08-17 12:00] VITALS: BP 149/87; PULSE 75; RESP 20; TEMP 98.6; O2SAT 94
[2017-08-17] MEDS: oxyCODONE/ACETAMINOPHEN 5 MG/325 MG TAB PO PRN (12:50)
[2017-08-17] MEDS ORDERED: ISOR40CR PO (14:47)
[2017-08-17] MEDS ORDERED: BETH25 PO (14:47)
[2017-08-17] MEDS ORDERED: HYDR-3366 PO (14:47)
[2017-08-17] MEDS ORDERED: METO25TA3 PO (14:47)
[2017-08-17] MEDS ORDERED: NIFE60TA8 PO (14:47)
[2017-08-17] MEDS ORDERED: HYDR-3798 PO (14:47)
--- NOTE | 2017-08-17 15:02 | HHI.DS ---
Discharge Summary Admission Date Jul 11, 2017 at 08:55 Admitting Diagnosis Septic Shock, Hypoxic/Hypercapneic respiratory failure, PNA. (1) Empyema ICD Code: J86.9 - Pyothorax without fistula (2) S/P Right Thoracotomy with Decortication (3) right locualted pleural effusion Procedures - s/p right VATS, mini thoracotomy, decortication 07/17 for organizing empyema. cc: Viraj Carpio MD Operative Report Date of Surgery: Jul 17, 2017 Preoperative Diagnosis: Postoperative Diagnosis: Procedure: 1. Right Video Assisted Thoracoscopic Surgery (VATS) 2. Right Posterolateral Muscle Sparing Mini-Thoracotomy 3. Decortication 4. Intercostal Nerve Block Surgeon: Viraj Carpio Director Of Accounts Payable(s): Danny Sargent Operation and Findings: PREOPERATIVE DIAGNOSIS 1. Right Organized Empyema 2. Loculated Abscess Cavities 3. Pneumonia 4. Respiratory Failure POSTOPERATIVE DIAGNOSIS same PROCEDURES 1. Right Video Assisted Thoracoscopic Surgery (VATS) 2. Right Posterolateral Muscle Sparing Mini-Thoracotomy 3. Decortication 4. Intercostal Nerve Block SURGEON Viraj Carpio MD Brief History - From Admission Patient seen and examined in the AM around 07:30. Delayed note entry. This is a 66yF 66-year-old female with history of COPD, hypertension, presents to the ER today brought in by EMS after called stating that his was having respiratory issues. She was found in respiratory distress, GCS 6, and was intubated by EMS for airway protection. They state that she initially sounded like she had rales bilaterally. She is not able to give me any further history. They found that her blood pressure was 70 systolic and started her on IV fluids and Levophed. Modifying Factors: None Associated Signs & Symptoms: Respiratory distress, intubated, altered mental status, hypotension Risk Factors: COPD history PE at Discharge GENERAL: Patient appearing older than stated age, in no apparent distress. CARDIOVASCULAR: Normal rate and regular rhythm without murmurs, gallops, or rubs. RESPIRATORY: Good respiratory efforts. Breath sounds equal and clear to auscultation bilaterally. GASTROINTESTINAL: Abdomen soft, non-tender, non-distended. Normal active bowel sounds MUSCULOSKELETAL: Extremities without cyanosis, or edema. NEURO: Alert & Oriented x4 to person, place, time, situation. Moves all ext x4. Generally weak. PSYCH: Appropriate mood and affect. Pt Condition on Discharge: Stable Discharge Disposition: Discharge Home Discharge Instructions DIET: Follow Instructions for: Heart Healthy Diet, Soft Diet Additional Diet Instructions: Mechanical soft, chopped meat with extra gravy No liquid restrictions Ensure Plus Activities you can perform: See Additionl Instruction Other Activity Instructions: as instructed, follow PT recommendations Saulo Hernández MD Aug 17, 2017 15:02
== END 2017-08-17 15:35 | disposition home or self-care (01) | DRG 853 ==
LOC: NEPE 06:32 → NEDA 08:55 → HIME 10:45 → HCIS 07-25 18:13 → N04A 07-26 20:56
PROVIDERS: ADMIT Family Medicine; ATTEND Family Medicine
PROC: 5A1955Z Respiratory Ventilation, Greater than 96 Consecutive Hours (ICD-10-PCS; 2017-07-11)
PROC: 03HY32Z Insertion of Monitoring Device into Upper Artery, Percutaneous Approach (ICD-10-PCS; 2017-07-11)
PROC: 02HV33Z Insertion of Infusion Device into Superior Vena Cava, Percutaneous Approach (ICD-10-PCS; 2017-07-11)
PROC: 0W9930Z Drainage of Right Pleural Cavity with Drainage Device, Percutaneous Approach (ICD-10-PCS; 2017-07-14)
PROC: 0BJK4ZZ Inspection of Right Lung, Percutaneous Endoscopic Approach (ICD-10-PCS; 2017-07-17)
PROC: 3E0T3BZ Introduction of Anesthetic Agent into Peripheral Nerves and Plexi, Percutaneous Approach (ICD-10-PCS; 2017-07-17)
PROC: 0BCK0ZZ Extirpation of Matter from Right Lung, Open Approach (ICD-10-PCS; principal; 2017-07-17 10:05)
PROC: 30233N1 Transfusion of Nonautologous Red Blood Cells into Peripheral Vein, Percutaneous Approach (ICD-10-PCS; 2017-07-19)
DX: A41.9 Sepsis, unspecified organism (principal); I21.4 Non-ST elevation (NSTEMI) myocardial infarction; R65.21 Severe sepsis with septic shock; E43 Unspecified severe protein-calorie malnutrition; G93.41 Metabolic encephalopathy; J44.0 Chronic obstructive pulmonary disease with (acute) lower respiratory infection; J96.01 Acute respiratory failure with hypoxia; J96.02 Acute respiratory failure with hypercapnia; L89.151 Pressure ulcer of sacral region, stage 1; J15.211 Pneumonia due to Methicillin susceptible Staphylococcus aureus; J85.1 Abscess of lung with pneumonia; E87.2 Acidosis; B37.49 Other urogenital candidiasis; N17.9 Acute kidney failure, unspecified; J44.1 Chronic obstructive pulmonary disease with (acute) exacerbation; N39.0 Urinary tract infection, site not specified; I31.3 Pericardial effusion (noninflammatory); E86.1 Hypovolemia; R73.9 Hyperglycemia, unspecified; M19.90 Unspecified osteoarthritis, unspecified site; F17.200 Nicotine dependence, unspecified, uncomplicated; M54.6 Pain in thoracic spine; I27.20 Pulmonary hypertension, unspecified; E55.9 Vitamin D deficiency, unspecified; D64.9 Anemia, unspecified; G89.29 Other chronic pain; I10 Essential (primary) hypertension; I48.91 Unspecified atrial fibrillation; E87.6 Hypokalemia; R19.7 Diarrhea, unspecified; E86.0 Dehydration; B96.89 Other specified bacterial agents as the cause of diseases classified elsewhere; Z68.23 Body mass index [BMI] 23.0-23.9, adult; Z23 Encounter for immunization
CPT/HCPCS: 32551; 36430; 36556; 36569; 36600; 51702; 71010; 71250; 76937; 80048; 80053; 80069; 80202; 80307; 81001; 82150; 82306; 82550; 82805; 82945; 82948; 83036; 83605; 83615; 83735; 83880; 83986; 84100; 84155; 84157; 84439; 84443; 84484; 85007; 85014; 85018; 85025; 85027; 85610; 85730; 86403; 86713; 86850; 86900; 86901; 86920; 87015; 87040; 87070; 87086; 87102; 87116; 87147; 87186; 87205; 87206; 87449; 87493; 87641; 88305; 89051; 90686; 90732; 93005; 93306; 94002; 94003; 94640; 94664; 96361; 96365; C9290; J0131; J0360; J0690; J0696; J1100; J1170; J1644; J1885; J1940; J1956; J2270; J2370; J2405; J2543; J2920; J2930; J3010; J3370; J3475; J7030; J7050; J7120; J7512; P9016; Q2038

== ENCOUNTER 2018-05-25 20:15 | Inpatient (IN) ==
[2018-05-25] MEDS ORDERED: Haloperidol Inj 5 MG/ML Ampul IM ONE (20:45)
--- NOTE | 2018-05-25 20:45 | ED ---
HPI General Chief complaint: Altered Mental Status Stated complaint: Evac/Medical Time Seen by Provider: 05/25/18 20:32 Source: EMS Mode of arrival: EMS Limitations: no limitations History of Present Illness HPI narrative: The patient is a 67 year old female who presents to the [facility] emergency department with a history of altered mentation noted by her prior to arrival. The history that the provided to EMS according to them changed multiple times. He reported initially that he last saw her in her normal state of health 1 hour prior to the call, however then he changed this timeframe to 3 hours prior to the call, and finally yesterday she was last seen normal. He initially reported that the patient was found in bed with altered mentation, however he later also said that he found her on the floor and put her back in bed. The patient's has not arrived at the bedside for further history. The patient on arrival is delirious with waxing and waning mentation. The patient is unable to provide any significant history. She is able to state her name and she is aware she is at the hospital , otherwise she does not provide any significant history. The patient's history is obtained from reviewing the electronic medical record. The patient was noted to be hypertensive with a blood pressure systolic of 200. The patient was tachycardic with heart rate in the 1 teens to 120s. Her denies any alcohol use. Related Data Home Medications Medication Instructions Recorded Confirmed No Known Home Medications 05/26/18 05/26/18 Allergies Allergy/AdvReac Type Severity Reaction Status Date / Time penicillin G Allergy Intermediate Hives Unverified 07/11/17 06:36 Sulfa (Sulfonamide Allergy Unknown Unverified 07/11/17 06:36 Antibiotics) Review of Systems ROS Unobtainable unobtainable due to mental status PMFSH History History Provided By: Medical Record Medical History Medical History Anxiety (Acute) Back pain (Acute) COPD (chronic obstructive pulmonary disease) (Acute) Empyema (Acute) History of hysterectomy (Acute) Hypertension (Acute) Pulmonary hypertension (Acute) Respiratory failure (Acute) Sepsis (Acute) Surgical History Surgical History Previous back surgery (Acute) Social History Social History Smoking Status: Current every day smoker Tobacco Type: Cigarettes How Often Do You Have a Drink Containing Alcohol: Never Exam Const General: other (The patient is agitated with waxing and waning mentation, repeatedly having to be redirected) Orientation: alert, awake, oriented to person, oriented to place, not oriented to time and confused HENMA Head: normocephalic and atraumatic Nose: no nasal discharge and no epistaxis Mouth: moist mucous membranes Throat: posterior oropharynx normal Eyes Sclera: normal sclerae Pupils: PERRL Neck Neck: no meningeal signs, trachea midline and no JVD Resp Effort & Inspection: no use of accessory muscles Auscultation: clear to auscultation bilaterally Cardio Rate: tachycardic (Sinus tachycardia in the 1 teens there is no pulse deficits to the extremities on simultaneous auscultation and palpation of her radial artery) Rhythm: regular rhythm Heart Sounds: no gallops, no murmurs and no rubs GI Inspection: non-distended Palpation: soft, no hepatosplenomegaly and nontender Back/Spine/Pelvis Back: no CVA tenderness Skin General: dry skin (warm) Neuro General: alert, awake and oriented (To person and place, not time or situation) Cranial Nerves: other (Uncooperative with formal neurologic testing although she has no evidence of facial asymmetry.) Speech: speech normal Motor: strength 5/5 throughout and no movement abnormalities noted (Patient noted) Sensory Exam: no sensory deficits noted Extrem General: normal to inspection (No calf tenderness on palpation.), no clubbing, no cyanosis and no edema Psych Speech and Movement: agitated Judgment: judgment good Course Consultations Consultation #1: The patient's case including history, pertinent physical examination findings, and laboratory studies were discussed with Dr. Hernandez. It was agreed that the patient would be admitted to the hospitalist service. Initial Documented Vital Signs Pulse Oximetry 96 05/25/18 20:32 Last Documented Vital Signs Temperature 97.9 F 05/25/18 21:00 Pulse Rate 127 H 05/25/18 21:00 Respiratory Rate 26 H 05/25/18 21:00 Blood Pressure 228/134 H 05/25/18 21:00 Pulse Oximetry 95 05/25/18 21:00 Medical Decision Making MDM Narrative Medical decision making narrative: During the course of the patient's emergency department visit, the patient's history, examination, and differential diagnosis were reviewed with the patient. The patient was placed on a product safety specialist with oximetry and frequent blood pressure monitoring. The patient had IV access obtained and blood work sent for analysis. The patient on arrival is agitated, writhing around the bed, intermittently sitting up and repeatedly has to be redirected. The patient was placed in soft restraints. The patient is initially given Ativan 1 mg IV. The patient continued to be agitated and was reassessed by me. The patient was started on normal saline at 1 25 mL/h. Patient was given an additional dose of Ativan 1 mg IV, Benadryl 25 mg IV Haldol 2 mg IM. Laboratory studies are remarkable for a glucose of 114, troponin I less than 0.02, TSH is low at 0.318 which could be related to over supplementation with her thyroid medication. This will be monitored. GFR 58, CO2 20.4, ammonia level less than 10, alk phos 136, coagulation profile unremarkable, CBC reveals a white count of 14, 84.3 neutrophil percent, platelets are 390, hemoglobin 13, urinalysis shows evidence of urinary tract infection, white blood cell count 24 , small occult blood, large leukocyte esterase, culture indicated. Urine drug screen is negative, alcohol less than 3, salicylate 3.2, acetaminophen less than 0.2. Chest x-ray showed no acute abnormality. The patient will be admitted to the hospital for altered mentation, delirium. SIRS criteria are met, blood cultures 2 have been ordered along with a lactic acid. The patient's results were discussed with the patient, including the plan of care. I explained that further testing and/ or monitoring is indicated based on the patient's history, examination, and/ or laboratory findings. Therefore, I recommended admission for additional evaluation. The patient expressed understanding and was agreeable with this plan. The patient was admitted to the hospital in guarded condition and sent to a bed under the care of [facility] service. Lab Data Result diagrams: 05/25/18 20:45 05/25/18 20:45 Lab Results 05/25/18 05/25/18 05/25/18 Range/Units 20:45 20:45 20:45 WBC 14.0 H (4.0-11.0) th/mm3 RBC 4.69 (4.00-5.30) mil/mm3 Hgb 13.0 (11.6-15.3) gm/dL Hct 38.1 (35.0-46.0) % MCV 81.3 (80.0-100.0) fL MCH 27.6 (27.0-34.0) pg MCHC 34.0 (32.0-36.0) % RDW 18.1 H (11.6-17.2) % Plt Count 390 (150-450) th/mm3 MPV 8.3 (7.0-11.0) fL Neut % (Auto) 84.3 H (16.0-70.0) % Lymph % (Auto) 8.5 L (9.0-44.0) % [place] % (Auto) 6.8 (0.0-8.0) % Eos % (Auto) 0.1 (0.0-4.0) % Baso % (Auto) 0.3 (0.0-2.0) % Neut # (Auto) 11.8 H (1.8-7.7) th/mm3 Lymph # (Auto) 1.2 (1.0-4.8) th/mm3 [place] # (Auto) 1.0 H (0.0-0.9) th/mm3 Eos # (Auto) 0.0 (0.0-0.4) th/mm3 Baso # (Auto) 0.0 (0.0-0.2) th/mm3 WBC Differential . Differential Comment Auto diff final PT 11.8 H (9.8-11.6) sec INR 1.2 Ratio APTT 26.2 (24.3-30.1) sec Sodium 139 (136-145) meq/L Potassium 4.0 (3.5-5.1) meq/L Chloride 106 (98-107) meq/L Carbon Dioxide 20.4 L (21.0-32.0) meq/L Anion Gap 13 (5-15) meq/L BUN 15 (7-18) mg/dL Creatinine 0.96 (0.50-1.00) mg/dL Estimated GFR 58 L (>89) mL/min POC Glucose (68-110) mg/dl Random Glucose 96 (74-106) mg/dL Lactic Acid (0.4-2.0) mmol/L Calcium 10.0 (8.5-10.1) mg/dL Total Bilirubin 0.5 (0.2-1.0) mg/dL AST 15 (15-37) U/L ALT 20 (10-53) U/L Alkaline Phosphatase 136 H (45-117) U/L Ammonia (11-32) mcmol/L Total Creatine Kinase 85 (26-192) U/L Troponin I Less than 0.02 L (0.02-0.05) ng/mL B-Natriuretic Peptide Total Protein 8.1 (6.4-8.2) g/dL Albumin 4.0 (3.4-5.0) g/dL Lipase 81 (73-393) U/L TSH 0.318 L (0.358-3.740) uIU/mL Urine Color (Yellw/Straw) Urine Clarity (Clear) Urine pH (5.0-8.5) Ur Specific Horton (1.002-1.035) Urine Protein (Neg-Trace) mg/dL Urine Glucose (UA) (Negative) mg/dL Urine Ketones (Negative) mg/dL Urine Occult Blood (Negative) Urine Nitrate (Negative) Urine Bilirubin (Negative) Urine Urobilinogen (Less than 2) mg/dL Ur Leukocyte Esterase (Negative) Urine RBC (0-3) /hpf Urine WBC (0-5) /hpf Ur Squamous Epith Cells (0-5) /hpf Ur Transition Epith Cell (None) /hpf Hyaline Casts (0-3) /lpf Micro UA Comment Urine Culture Comments Salicylates (2.8-20.0) mg/dL Urine Opiates Screen (Neg) Acetaminophen Less than 0.2 L (10.0-30.0) mcg/mL Ur Barbiturates Screen (Neg) Ur Amphetamines Screen (Neg) U Benzodiazepines Scrn (Neg) Urine Cocaine Screen (Neg) U Cannabinoids Screen (Neg) Serum Alcohol Less than 3 (0-5) mg/dL 05/25/18 05/25/18 05/25/18 Range/Units 20:45 20:45 20:45 WBC (4.0-11.0) th/mm3 RBC (4.00-5.30) mil/mm3 Hgb (11.6-15.3) gm/dL Hct (35.0-46.0) % MCV (80.0-100.0) fL MCH (27.0-34.0) pg MCHC (32.0-36.0) % RDW (11.6-17.2) % Plt Count (150-450) th/mm3 MPV (7.0-11.0) fL Neut % (Auto) (16.0-70.0) % Lymph % (Auto) (9.0-44.0) % [place] % (Auto) (0.0-8.0) % Eos % (Auto) (0.0-4.0) % Baso % (Auto) (0.0-2.0) % Neut # (Auto) (1.8-7.7) th/mm3 Lymph # (Auto) (1.0-4.8) th/mm3 [place] # (Auto) (0.0-0.9) th/mm3 Eos # (Auto) (0.0-0.4) th/mm3 Baso # (Auto) (0.0-0.2) th/mm3 WBC Differential Differential Comment PT (9.8-11.6) sec INR Ratio APTT (24.3-30.1) sec Sodium (136-145) meq/L Potassium (3.5-5.1) meq/L Chloride (98-107) meq/L Carbon Dioxide (21.0-32.0) meq/L Anion Gap (5-15) meq/L BUN (7-18) mg/dL Creatinine (0.50-1.00) mg/dL Estimated GFR (>89) mL/min POC Glucose (68-110) mg/dl Random Glucose (74-106) mg/dL Lactic Acid (0.4-2.0) mmol/L Calcium (8.5-10.1) mg/dL Total Bilirubin (0.2-1.0) mg/dL AST (15-37) U/L ALT (10-53) U/L Alkaline Phosphatase (45-117) U/L Ammonia Less than 10 L (11-32) mcmol/L Total Creatine Kinase Cancelled (26-192) U/L Troponin I (0.02-0.05) ng/mL B-Natriuretic Peptide Total Protein (6.4-8.2) g/dL Albumin (3.4-5.0) g/dL Lipase Cancelled (73-393) U/L TSH (0.358-3.740) uIU/mL Urine Color (Yellw/Straw) Urine Clarity (Clear) Urine pH (5.0-8.5) Ur Specific Horton (1.002-1.035) Urine Protein (Neg-Trace) mg/dL Urine Glucose (UA) (Negative) mg/dL Urine Ketones (Negative) mg/dL Urine Occult Blood (Negative) Urine Nitrate (Negative) Urine Bilirubin (Negative) Urine Urobilinogen (Less than 2) mg/dL Ur Leukocyte Esterase (Negative) Urine RBC (0-3) /hpf Urine WBC (0-5) /hpf Ur Squamous Epith Cells (0-5) /hpf Ur Transition Epith Cell (None) /hpf Hyaline Casts (0-3) /lpf Micro UA Comment Urine Culture Comments Salicylates 3.2 (2.8-20.0) mg/dL Urine Opiates Screen (Neg) Acetaminophen (10.0-30.0) mcg/mL Ur Barbiturates Screen (Neg) Ur Amphetamines Screen (Neg) U Benzodiazepines Scrn (Neg) Urine Cocaine Screen (Neg) U Cannabinoids Screen (Neg) Serum Alcohol (0-5) mg/dL 05/25/18 05/25/18 05/25/18 Range/Units 20:45 20:45 20:47 WBC (4.0-11.0) th/mm3 RBC (4.00-5.30) mil/mm3 Hgb (11.6-15.3) gm/dL Hct (35.0-46.0) % MCV (80.0-100.0) fL MCH (27.0-34.0) pg MCHC (32.0-36.0) % RDW (11.6-17.2) % Plt Count (150-450) th/mm3 MPV (7.0-11.0) fL Neut % (Auto) (16.0-70.0) % Lymph % (Auto) (9.0-44.0) % [place] % (Auto) (0.0-8.0) % Eos % (Auto) (0.0-4.0) % Baso % (Auto) (0.0-2.0) % Neut # (Auto) (1.8-7.7) th/mm3 Lymph # (Auto) (1.0-4.8) th/mm3 [place] # (Auto) (0.0-0.9) th/mm3 Eos # (Auto) (0.0-0.4) th/mm3 Baso # (Auto) (0.0-0.2) th/mm3 WBC Differential Differential Comment PT (9.8-11.6) sec INR Ratio APTT (24.3-30.1) sec Sodium (136-145) meq/L Potassium (3.5-5.1) meq/L Chloride (98-107) meq/L Carbon Dioxide (21.0-32.0) meq/L Anion Gap (5-15) meq/L BUN (7-18) mg/dL Creatinine (0.50-1.00) mg/dL Estimated GFR (>89) mL/min POC Glucose 114 H (68-110) mg/dl Random Glucose (74-106) mg/dL Lactic Acid (0.4-2.0) mmol/L Calcium (8.5-10.1) mg/dL Total Bilirubin (0.2-1.0) mg/dL AST (15-37) U/L ALT (10-53) U/L Alkaline Phosphatase (45-117) U/L Ammonia (11-32) mcmol/L Total Creatine Kinase (26-192) U/L Troponin I (0.02-0.05) ng/mL B-Natriuretic Peptide Cancelled 16 Total Protein (6.4-8.2) g/dL Albumin (3.4-5.0) g/dL Lipase (73-393) U/L TSH (0.358-3.740) uIU/mL Urine Color (Yellw/Straw) Urine Clarity (Clear) Urine pH (5.0-8.5) Ur Specific Horton (1.002-1.035) Urine Protein (Neg-Trace) mg/dL Urine Glucose (UA) (Negative) mg/dL Urine Ketones (Negative) mg/dL Urine Occult Blood (Negative) Urine Nitrate (Negative) Urine Bilirubin (Negative) Urine Urobilinogen (Less than 2) mg/dL Ur Leukocyte Esterase (Negative) Urine RBC (0-3) /hpf Urine WBC (0-5) /hpf Ur Squamous Epith Cells (0-5) /hpf Ur Transition Epith Cell (None) /hpf Hyaline Casts (0-3) /lpf Micro UA Comment Urine Culture Comments Salicylates (2.8-20.0) mg/dL Urine Opiates Screen (Neg) Acetaminophen (10.0-30.0) mcg/mL Ur Barbiturates Screen (Neg) Ur Amphetamines Screen (Neg) U Benzodiazepines Scrn (Neg) Urine Cocaine Screen (Neg) U Cannabinoids Screen (Neg) Serum Alcohol (0-5) mg/dL 05/25/18 05/25/18 05/26/18 Range/Units 21:30 21:30 01:20 WBC (4.0-11.0) th/mm3 RBC (4.00-5.30) mil/mm3 Hgb (11.6-15.3) gm/dL Hct (35.0-46.0) % MCV (80.0-100.0) fL MCH (27.0-34.0) pg MCHC (32.0-36.0) % RDW (11.6-17.2) % Plt Count (150-450) th/mm3 MPV (7.0-11.0) fL Neut % (Auto) (16.0-70.0) % Lymph % (Auto) (9.0-44.0) % [place] % (Auto) (0.0-8.0) % Eos % (Auto) (0.0-4.0) % Baso % (Auto) (0.0-2.0) % Neut # (Auto) (1.8-7.7) th/mm3 Lymph # (Auto) (1.0-4.8) th/mm3 [place] # (Auto) (0.0-0.9) th/mm3 Eos # (Auto) (0.0-0.4) th/mm3 Baso # (Auto) (0.0-0.2) th/mm3 WBC Differential Differential Comment PT (9.8-11.6) sec INR Ratio APTT (24.3-30.1) sec Sodium (136-145) meq/L Potassium (3.5-5.1) meq/L Chloride (98-107) meq/L Carbon Dioxide (21.0-32.0) meq/L Anion Gap (5-15) meq/L BUN (7-18) mg/dL Creatinine (0.50-1.00) mg/dL Estimated GFR (>89) mL/min POC Glucose (68-110) mg/dl Random Glucose (74-106) mg/dL Lactic Acid 1.2 (0.4-2.0) mmol/L Calcium (8.5-10.1) mg/dL Total Bilirubin (0.2-1.0) mg/dL AST (15-37) U/L ALT (10-53) U/L Alkaline Phosphatase (45-117) U/L Ammonia (11-32) mcmol/L Total Creatine Kinase (26-192) U/L Troponin I (0.02-0.05) ng/mL B-Natriuretic Peptide Total Protein (6.4-8.2) g/dL Albumin (3.4-5.0) g/dL Lipase (73-393) U/L TSH (0.358-3.740) uIU/mL Urine Color Yellow (Yellw/Straw) Urine Clarity Hazy H (Clear) Urine pH 6.0 (5.0-8.5) Ur Specific Horton 1.009 (1.002-1.035) Urine Protein Negative (Neg-Trace) mg/dL Urine Glucose (UA) Negative (Negative) mg/dL Urine Ketones Negative (Negative) mg/dL Urine Occult Blood Small H (Negative) Urine Nitrate Negative (Negative) Urine Bilirubin Negative (Negative) Urine Urobilinogen Less than 2 (Less than 2) mg/dL Ur Leukocyte Esterase Large H (Negative) Urine RBC 3 (0-3) /hpf Urine WBC 24 H (0-5) /hpf Ur Squamous Epith Cells 1 (0-5) /hpf Ur Transition Epith Cell 1 (None) /hpf Hyaline Casts 1 (0-3) /lpf Micro UA Comment Cath-culture ind Urine Culture Comments Cath-cult indicated Salicylates (2.8-20.0) mg/dL Urine Opiates Screen Neg (Neg) Acetaminophen (10.0-30.0) mcg/mL Ur Barbiturates Screen Neg (Neg) Ur Amphetamines Screen Neg (Neg) U Benzodiazepines Scrn Neg (Neg) Urine Cocaine Screen Neg (Neg) U Cannabinoids Screen Neg (Neg) Serum Alcohol (0-5) mg/dL Imaging Data Radiologist's impression: Chest X-Ray 05/25/18 20:32 CONCLUSION: No definite acute abnormality is seen. There is chronic linear density at the right upper lung and old left rib fractures. Head CT 05/25/18 20:32 CONCLUSION: 1. No acute intracranial abnormality is seen. 2. Surgical screw seen through the dens with some lucency seen around the screw. . ECG Data Attestation: I personally reviewed and interpreted this ECG as follows: Interpretation: The patient had an EKG done on arrival. The patient's EKG shows a sinus tachycardia, heart rate of 114, QRS duration 84 ms, QTC 410 ms. Discharge Plan Discharge Disposition Patient Disposition: 30 Still Patient Discharge Details Diagnosis: Altered mental status, Leukocytosis, unspecified, Urinary tract infection Physicians Team ED Provider: Gaviota Castano Primary Care Provider: Primary Care Maribell Kidd Attending Provider: Kaelyn Hernandez Status ED Status: Admitted Patient
[2018-05-25] MEDS: Sod Chloride 0.9% Inj 1,000 ML IV.CONT SCH (20:59)
[2018-05-25 21:00] LABS: Baso % (Auto) 0.3 % (0.0-2.0); Eos % (Auto) 0.1 % (0.0-4.0); Hematocrit 38.1 % (35.0-46.0); Lymph # (Auto) 1.2 th/mm3 (1.0-4.8); Lymph % (Auto) 8.5 % (9.0-44.0); Mean Corpuscular Hemoglobin 27.6 pg (27.0-34.0); Mean Corpuscular Volume 81.3 fL (80.0-100.0); Mean Platelet Volume 8.3 fL (7.0-11.0); Mono % (Auto) 6.8 % (0.0-8.0); Neut # (Auto) 11.8 th/mm3 (1.8-7.7); Neut % (Auto) 84.3 % (16.0-70.0); Platelet Count 390 th/mm3 (150-450); Red Blood Count 4.69 mil/mm3 (4.00-5.30); Red Cell Distribution Width 18.1 % (11.6-17.2)
[2018-05-25] MEDS ORDERED: Labetalol HCl Inj 100 MG/20 ML Vial IV.PUSH ONE (21:11)
[2018-05-25 21:14] LABS: Activated Partial Thrombo Time 26.2 sec (24.3-30.1); INR 1.2 Ratio; Prothrombin Time 11.8 sec (9.8-11.6)
[2018-05-25 21:26] LABS: Alanine Aminotransferase 20 U/L (10-53); Anion Gap 13 meq/L (5-15); Aspartate Aminotransferase 15 U/L (15-37); Blood Urea Nitrogen 15 mg/dL (7-18); Carbon Dioxide 20.4 meq/L (21.0-32.0); Chloride 106 meq/L (98-107); Glomerular Filtration Rate 58 mL/min (>89); Glucose,Random 96 mg/dL (74-106); Lipase 81 U/L (73-393); Sodium 139 meq/L (136-145)
[2018-05-25 21:35] LABS: Alkaline Phosphatase 136 U/L (45-117); Creatine Kinase 85 U/L (26-192); Thyroid Stimulating Hormone 0.318 uIU/mL (0.358-3.740); Total Protein 8.1 g/dL (6.4-8.2)
--- NOTE | 2018-05-25 21:39 | XR ---
EXAM DATE: 05/25/2018 9:09 PM EDT AGE/SEX: 67 years / Female INDICATIONS: Short of breath. CLINICAL DATA: This is the patient's initial encounter. Patient reports that signs and symptoms have been present for 1 day and indicates a pain score of 0/10. MEDICAL/SURGICAL HISTORY: Chronic obstructive pulmonary disease. Hypertension. Emphysema. Hys terectomy. COMPARISON: [facility] [place], CHEST SINGLE AP, 08/02/2017. . FINDINGS: The heart size is normal. There is some chronic appearing linear density at the superior lateral righ t chest. The remaining aspects the lungs are grossly clear. There are old healed left rib fractures. Surgical hardware seen in the cervical spine. CONCLUSION: No definite acute abnormality is seen. There is chronic linear density at the right upper lung and ol d left rib fractures. Electronically signed by: Moustapha Faulkner MD 05/25/2018 9:38 PM EDT
[2018-05-25 22:07] LABS: Bilirubin,Urine Negative (Negative); Clarity,Urine Hazy (Clear); Color,Urine Yellow (Yellw/Straw); Glucose,Urine (UA) Negative (Negative); Hyaline Casts,Urine 1 /lpf (0-3); Leukocyte Esterase,Urine Large (Negative); Nitrite,Urine Negative (Negative); Specific Gravity,Urine 1.009 (1.002-1.035); Squamous Epithelial Cell,Urine 1 /hpf (0-5); Transitional Epi Cells,Urine 1 /hpf
[2018-05-25] MEDS ORDERED: Vancomycin Inj 1 GM/200 ML PIGGYBACK IV.SIG ONE (22:13)
[2018-05-25 22:19] LABS: Amphetamine Screen,Urine Neg (Neg); Barbiturate Screen,Urine Neg (Neg); Cannabinoid Screen,Urine Neg (Neg); Cocaine Screen,Urine Neg (Neg)
[2018-05-25 22:24] LABS: Opiate Screen,Urine Neg (Neg)
--- NOTE | 2018-05-25 22:49 | CT ---
EXAM DATE: 05/25/2018 10:13 PM EDT AGE/SEX: 67 years / Female INDICATIONS: Altered mental status. CLINICAL DATA: This is the patient's initial encounter. Patient reports that signs and symptoms have been present for 1 day and indicates a pain score of 0/10. MEDICAL/SURGICAL HISTORY: None. None. RADIATION DOSE: 36.45 CTDI (mGy) COMPARISON: [facility] [place], CT BRAIN W/O CONTRAST, 11/07/2015. . TECHNIQUE: CT of the head without contrast. Using automated exposure control and adjustment of the mA and/or kV according to patient size, radiation dose was kept as low as reasonably achievable to ob tain optimal diagnostic quality images. DICOM format image data is available electronically for revi ew and comparison. FINDINGS: Cerebrum: The ventricles are normal for age. No evidence of midline shift, mass lesion, hemorrhage or acute infarction. No extraaxial fluid collections are seen. Posterior Fossa: The cerebellum and brainstem are intact. The 4th ventricle is midline. The cerebe llopontine angle is unremarkable. Extracranial: The visualized portion of the orbits is intact. Skull: The calvaria is intact. No evidence of skull fracture. Surgical hardware is seen at the dens . There is lucency seen around the screw. CONCLUSION: 1. No acute intracranial abnormality is seen. 2. Surgical screw seen through the dens with some lucency seen around the screw. . Electronically signed by: Moustapha Faulkner MD 05/25/2018 10:47 PM EDT
[2018-05-26] MEDS ORDERED: Bisacodyl 10 MG Supp RECTAL PRN
--- NOTE | 2018-05-26 00:14 | P.HP ---
History of Present Illness Service: [facility] Primary Care Physician: No Primary Care Physician History of Present Illness: 67-year-old female presents to the emergency department for the evaluation of altered mental status and severe agitation. History is obtained from the patient's . He reports that yesterday, when he came home from work that she was more agitated than usual and moving from the bed to the living room and back several times. She was able to speak in complete sentences and assured him that nothing was wrong. He stated up with her all night because she was too agitated to sleep. The patient then assured her that she would be okay while he went to work. Upon returning home from work today the patient was found in her bed. The reports that she would only answer questions with yes or no. He states she was very agitated and had flopping motions of all her extremities. He called EMS at that time. Upon arrival to the hospital , the patient was no longer answering questions. At the time of our interview, she will not track to voice or respond to me in any way. She is severely agitated with constant movement of all 4 extremities. She is in 4 point restraints. Per the , the patient takes "a lot" of Benadryl and Excedrin PM. He is unable to tell me exactly how much she has taken in the last 24 hours. He states she is a very private person. Inpatient Certification: I certify that the inpatient services were ordered in accordance with Medicare regulations governing the order. This includes certification that hospital inpatient services are reasonable and necessary and in the case of services not specified as inpatient-only under 42 CFR 419.22(n), that they are appropriately provided as inpatient services in accordance to with the 2-midnight benchmark under 43 CFR 412.3(e) Estimated Total Length of Stay (Days): 3 Plans for Post Hospital Care: Not yet determined Review of Systems Unable to obtain secondary to patient's clinical condition PMFSH - History History Provided By: Medical Record - Medical History Medical History: Medical History (Last Updated 05/25/18 @ 20:52 by Gaviota Castano MD) Anxiety Back pain COPD (chronic obstructive pulmonary disease) Empyema History of hysterectomy Hypertension Pulmonary hypertension Respiratory failure Sepsis - Surgical History Surgical History: Surgical History (Last Updated 05/25/18 @ 20:52 by Gaviota Castano MD) Previous back surgery - Tobacco History Tobacco Use In Past 30 Days: Yes Smoking Status: Current every day smoker Tobacco Type: Cigarettes - Alcohol History How Often Do You Have a Drink Containing Alcohol: Never - Immunization History Tetanus Immunization: Unable to Assess Hx Influenza Vaccine This Season: Unable to Assess Medications and Allergies Active Medications: Active Medications Al Hydroxide/Mg Hydroxide (Milk Of Magnesia Liq) 30 ml PO Q12H PRN PRN Reason: Mild Constipation Bisacodyl (Dulcolax Supp) 10 mg RECTAL DAILY PRN PRN Reason: SEVERE CONSITIPATION Heparin Sodium (Porcine) (Heparin Inj) 5,000 units SQ Q12H BAUDILIO Sodium Chloride (Ns Inj) 1,000 mls @ 125 mls/hr IV.CONT .Q8H BAUDILIO Last Admin: 05/25/18 20:59 Dose: 125 mls/hr Ceftriaxone Sodium 1,000 mg/ (Sodium Chloride) 100 mls @ 200 mls/hr IV.SIG Q24H BAUDILIO Sodium Chloride (Ns Inj) 1,000 mls @ 70 mls/hr IV.CONT .[id number] BAUDILIO Lactulose (Lactulose Liq) 30 ml PO DAILY PRN PRN Reason: SEVERE CONSITIPATION Lorazepam (Ativan Inj) 2 mg IV.PUSH Q2H PRN PRN Reason: agitation Lorazepam (Ativan Inj) 1 mg 0.02 mg/kg (1 mg) IV.PUSH ONCE ONE Stop: 05/26/18 00:05 Ondansetron HCl (Zofran Inj) 4 mg IV.PUSH Q6H PRN PRN Reason: NAUSEA OR VOMITING Senna/Docusate Sodium (Pallavi-Colace) 1 tab PO BID [facility] Sennosides (Senokot) 17.2 mg PO Q12H PRN PRN Reason: Moderate Constipation Sodium Chloride (Ns Flush) 2 ml IV.FLUSH PRN PRN PRN Reason: FLUSH AFTER USING IV ACCESS Allergies Allergy/AdvReac Type Severity Reaction Status Date / Time penicillin G Allergy Intermediate Hives Unverified 07/11/17 06:36 Sulfa (Sulfonamide Allergy Unknown Unverified 07/11/17 06:36 Antibiotics) Exam Vital signs: Vital Signs 05/25/18 20:32 05/25/18 21:00 Temperature 97.9 F Pulse Rate 127 H Respiratory Rate 26 H Blood Pressure 228/134 H Pulse Oximetry 96 95 Intake & Output 05/25/18 05/25/18 05/26/18 06:59 18:59 06:59 Weight 50 kg Narrative: Gen.: Moderate distress Head: Normocephalic. Atraumatic. EENT: Pupils dilated. Nose without drainage. Airway intact. Cardiovascular: Regular rate and rhythm. No murmurs, rubs or gallops. Respiratory: Lungs clear to auscultation bilaterally. No wheezes or rhonchi. Abdomen: Soft, nontender, nondistended. No peritoneal signs. Musculoskeletal: No gross deformities. No edema. Skin: No obvious rashes or erythema. Neuro: Does not answer questions or follow commands. Nonverbal at this time. All 4 extremities move spontaneously. Results - Labs CBC & Chem 7: 05/25/18 20:45 05/25/18 20:45 Labs: Laboratory Results - last 24 hr 05/25/18 05/25/18 05/25/18 20:45 20:45 20:45 WBC 14.0 H RBC 4.69 Hgb 13.0 Hct 38.1 MCV 81.3 MCH 27.6 MCHC 34.0 RDW 18.1 H Plt Count 390 MPV 8.3 Neut % (Auto) 84.3 H Lymph % (Auto) 8.5 L Sullivan % (Auto) 6.8 Eos % (Auto) 0.1 Baso % (Auto) 0.3 Neut # (Auto) 11.8 H Lymph # (Auto) 1.2 Sullivan # (Auto) 1.0 H Eos # (Auto) 0.0 Baso # (Auto) 0.0 WBC Differential . Differential Comment Auto diff final PT 11.8 H INR 1.2 APTT 26.2 Sodium 139 Potassium 4.0 Chloride 106 Carbon Dioxide 20.4 L Anion Gap 13 BUN 15 Creatinine 0.96 Estimated GFR 58 L POC Glucose Random Glucose 96 Calcium 10.0 Total Bilirubin 0.5 AST 15 ALT 20 Alkaline Phosphatase 136 H Ammonia Total Creatine Kinase 85 Troponin I Less than 0.02 L B-Natriuretic Peptide Total Protein 8.1 Albumin 4.0 Lipase 81 TSH 0.318 L Urine Color Urine Clarity Urine pH Ur Specific [place] Urine Protein Urine Glucose (UA) Urine Ketones Urine Occult Blood Urine Nitrate Urine Bilirubin Urine Urobilinogen Ur Leukocyte Esterase Urine RBC Urine WBC Ur Squamous Epith Cells Ur Transition Epith Cell Hyaline Casts Micro UA Comment Urine Culture Comments Salicylates Urine Opiates Screen Acetaminophen Less than 0.2 L Ur Barbiturates Screen Ur Amphetamines Screen U Benzodiazepines Scrn Urine Cocaine Screen U Cannabinoids Screen Serum Alcohol Less than 3 05/25/18 05/25/18 05/25/18 20:45 20:45 20:45 WBC RBC Hgb Hct MCV MCH MCHC RDW Plt Count MPV Neut % (Auto) Lymph % (Auto) [place] % (Auto) Eos % (Auto) Baso % (Auto) Neut # (Auto) Lymph # (Auto) Sullivan # (Auto) Eos # (Auto) Baso # (Auto) WBC Differential Differential Comment PT INR APTT Sodium Potassium Chloride Carbon Dioxide Anion Gap BUN Creatinine Estimated GFR POC Glucose Random Glucose Calcium Total Bilirubin AST ALT Alkaline Phosphatase Ammonia Less than 10 L Total Creatine Kinase Cancelled Troponin I B-Natriuretic Peptide Total Protein Albumin Lipase Cancelled TSH Urine Color Urine Clarity Urine pH Ur Specific [place] Urine Protein Urine Glucose (UA) Urine Ketones Urine Occult Blood Urine Nitrate Urine Bilirubin Urine Urobilinogen Ur Leukocyte Esterase Urine RBC Urine WBC Ur Squamous Epith Cells Ur Transition Epith Cell Hyaline Casts Micro UA Comment Urine Culture Comments Salicylates 3.2 Urine Opiates Screen Acetaminophen Ur Barbiturates Screen Ur Amphetamines Screen U Benzodiazepines Scrn Urine Cocaine Screen U Cannabinoids Screen Serum Alcohol 05/25/18 05/25/18 05/25/18 20:45 20:45 20:47 WBC RBC Hgb Hct MCV MCH MCHC RDW Plt Count MPV Neut % (Auto) Lymph % (Auto) [place] % (Auto) Eos % (Auto) Baso % (Auto) Neut # (Auto) Lymph # (Auto) [place] # (Auto) Eos # (Auto) Baso # (Auto) WBC Differential Differential Comment PT INR APTT Sodium Potassium Chloride Carbon Dioxide Anion Gap BUN Creatinine Estimated GFR POC Glucose 114 H Random Glucose Calcium Total Bilirubin AST ALT Alkaline Phosphatase Ammonia Total Creatine Kinase Troponin I B-Natriuretic Peptide Cancelled 16 Total Protein Albumin Lipase TSH Urine Color Urine Clarity Urine pH Ur Specific [place] Urine Protein Urine Glucose (UA) Urine Ketones Urine Occult Blood Urine Nitrate Urine Bilirubin Urine Urobilinogen Ur Leukocyte Esterase Urine RBC Urine WBC Ur Squamous Epith Cells Ur Transition Epith Cell Hyaline Casts Micro UA Comment Urine Culture Comments Salicylates Urine Opiates Screen Acetaminophen Ur Barbiturates Screen Ur Amphetamines Screen U Benzodiazepines Scrn Urine Cocaine Screen U Cannabinoids Screen Serum Alcohol 05/25/18 05/25/18 21:30 21:30 WBC RBC Hgb Hct MCV MCH MCHC RDW Plt Count MPV Neut % (Auto) Lymph % (Auto) [place] % (Auto) Eos % (Auto) Baso % (Auto) Neut # (Auto) Lymph # (Auto) Sullivan # (Auto) Eos # (Auto) Baso # (Auto) WBC Differential Differential Comment PT INR APTT Sodium Potassium Chloride Carbon Dioxide Anion Gap BUN Creatinine Estimated GFR POC Glucose Random Glucose Calcium Total Bilirubin AST ALT Alkaline Phosphatase Ammonia Total Creatine Kinase Troponin I B-Natriuretic Peptide Total Protein Albumin Lipase TSH Urine Color Yellow Urine Clarity Hazy H Urine pH 6.0 Ur Specific [place] 1.009 Urine Protein Negative Urine Glucose (UA) Negative Urine Ketones Negative Urine Occult Blood Small H Urine Nitrate Negative Urine Bilirubin Negative Urine Urobilinogen Less than 2 Ur Leukocyte Esterase Large H Urine RBC 3 Urine WBC 24 H Ur Squamous Epith Cells 1 Ur Transition Epith Cell 1 Hyaline Casts 1 Micro UA Comment Cath-culture ind Urine Culture Comments Cath-cult indicated Salicylates Urine Opiates Screen Neg Acetaminophen Ur Barbiturates Screen Neg Ur Amphetamines Screen Neg U Benzodiazepines Scrn Neg Urine Cocaine Screen Neg U Cannabinoids Screen Neg Serum Alcohol - Imaging Impressions Chest X-Ray 05/25/18 20:32 CONCLUSION: No definite acute abnormality is seen. There is chronic linear density at the right upper lung and old left rib fractures. Head CT 05/25/18 20:32 CONCLUSION: 1. No acute intracranial abnormality is seen. 2. Surgical screw seen through the dens with some lucency seen around the screw. . Caprini VTE Risk Assessment Caprini VTE Risk Assessment: Moderate/High Risk (score >= 2) Caprini Risk Assessment Model: Point Value = 1 Point Value = 2 Point Value = 3 Point Value = 5 Age 41-60 Minor surgery BMI > 25 kg/m2 Swollen legs Varicose veins or History of unexplained or recurrent spontaneous Oral contraceptives or hormone replacement Sepsis (< 1 month) Serious lung disease, including pneumonia (< 1 month) Abnormal pulmonary function Acute myocardial infarction Congestive heart failure (< 1 month) History of inflammatory bowel disease Medical patient at bed rest Age 61-74 Arthroscopic surgery Major open surgery (> 45 min) Laparoscopic surgery (> 45 min) Malignancy Confined to bed (> 72 hours) Immobilizing plaster cast Central venous access Age >= 75 History of VTE Family history of VTE Factor V Leiden Prothrombin [id number] Lupus anticoagulant Anticardiolipin antibodies Elevated serum homocysteine Heparin-induced thrombocytopenia Other congenital or acquired thrombophilia Stroke (< 1 month) Elective arthroplasty Hip, pelvis, or leg fracture Acute spinal cord injury (< 1 month) Prophylaxis Regimen: Total Risk Factor Score Risk Level Prophylaxis Regimen 0-1 Low Early ambulation 2 Moderate Order ONE of the following: *Sequential Compression Device (SCD) *Heparin 5000 units SQ BID 3-4 Higher Order ONE of the following medications: *Heparin 5000 units SQ TID *Enoxaparin/Lovenox 40 mg SQ daily (WT < 150 kg, CrCl > 30 mL/min) *Enoxaparin/Lovenox 30 mg SQ daily (WT < 150 kg, CrCl > 10-29 mL/min) *Enoxaparin/Lovenox 30 mg SQ BID (WT < 150 kg, CrCl > 30 mL/min) AND/OR *Sequential Compression Device (SCD) 5 or more Highest Order ONE of the following medications: *Heparin 5000 units SQ TID (Preferred with Epidurals) *Enoxaparin/Lovenox 40 mg SQ daily (WT < 150 kg, CrCl > 30 mL/min) *Enoxaparin/Lovenox 30 mg SQ daily (WT < 150 kg, CrCl > 10-29 mL/min) *Enoxaparin/Lovenox 30 mg SQ BID (WT < 150 kg, CrCl > 30 mL/min) AND *Sequential Compression Device (SCD) Assessment and Plan - Plan Assessment/plan: 1. Altered mental status/agitation Unclear etiology Head CT negative for acute process Urine toxicology screen negative Acetaminophen, salicylates negative Concern for Benadryl overdose given patient takes Benadryl and Excedrin PM regularly. The patient's cannot quantify an amount. Poison control contacted out of concern for Benadryl overdose Ativan for agitation Repeat EKG pending If symptoms do not improve obtain MRI and neurology consult 2. Urinary tract infection UA consistent with UTI Urine culture pending Rocephin 3. Hypertension/hypertensive crisis/tachycardia Likely secondary to severe agitation Monitor closely IV labetalol if needed FEN N.p.o. Electrolytes: Monitor and replete as needed Heparin NS at 70 cc/hour
[2018-05-26] MEDS: Sod Chloride 0.9% Inj 1,000 ML IV.CONT SCH ×3 (00:35→19:38)
[2018-05-26] MEDS: Heparin - SQ 10,000 UNITS/ML Vial SQ SCH ×2 (00:35→16:55)
[2018-05-26] MEDS ORDERED: Labetalol HCl Inj 100 MG/20 ML Vial IV.PUSH ONE (05:30)
[2018-05-26] MEDS ORDERED: niCARdipine Inj 25 MG in Sodium Chlor 0.9% Inj 250 ML IV.CONT PRN (06:48)
[2018-05-26] MEDS: niCARdipine Inj 25 MG in Sodium Chlor 0.9% Inj 240 ML IV.CONT PRN ×4 (07:48→22:12)
[2018-05-26] MEDS: Senna/Docusate Sodium 8.6/50 MG Tablet PO SCH ×2 (08:58→22:08)
--- NOTE | 2018-05-26 13:44 | P.PNIM ---
Subjective Interval history: Confused and agitated. Did not answer questions appropriately Physical Exam Vital signs: Vital Signs 05/25/18 20:32 05/25/18 21:00 05/25/18 23:00 Temperature 97.9 F Pulse Rate 127 H 86 Respiratory Rate 26 H 22 Blood Pressure 228/134 H 190/104 H Pulse Oximetry 96 95 98 05/26/18 01:00 05/26/18 03:00 05/26/18 05:00 Temperature Pulse Rate 82 78 76 Respiratory Rate 19 22 24 Blood Pressure 188/108 H 178/98 H 214/115 H Pulse Oximetry 99 97 100 05/26/18 05:54 05/26/18 07:40 05/26/18 08:59 Temperature 97.8 F Pulse Rate 64 78 Respiratory Rate 24 19 Blood Pressure 231/130 H 174/96 H Pulse Oximetry 96 95 95 05/26/18 09:26 05/26/18 12:14 Temperature Pulse Rate 80 82 Respiratory Rate 17 24 Blood Pressure 180/95 H 170/88 H Pulse Oximetry 93 L 96 Intake & Output 05/25/18 05/26/18 05/26/18 18:59 06:59 18:59 Intake Total 1650 / 1650 Output Total 2049 Balance -400 / -400 Weight 50 kg Intake: IV 1650 / 1650 NS Inj 1,000 ML @ 125 mls/hr IV 1000 / 1000 .CONT .Q8H [facility] Rx#:[id number] Cardene Inj 25 MG In NS Inj 240 250 / 250 ML @ 5 MG/HR 50 mls/hr IV.CONT TITRATE PRN Rx#:[id number] Rocephin Inj 1,000 MG In NS Inj 100 / 100 100 ML @ 200 mls/hr IV.SIG Q24H [facility] Rx#:[id number] Output: Urine Amount (Catheter) 2049 Indwelling Urethral Catheter 2049 Narrative: GENERAL: This is a well-nourished, well-developed patient, mildly agitated, confused CARDIOVASCULAR: Regular rate and rhythm with RESPIRATORY: Clear to auscultation. Breath sounds equal bilaterally. No wheezes , rales, or rhonchi. GASTROINTESTINAL: Abdomen soft, non-tender, nondistended. Normal active bowel sounds MUSCULOSKELETAL: Extremities without clubbing, cyanosis, or edema. NEURO: Agitated confused and spontaneously moves all ext x4 with bilateral upper extremity in soft restraints - Urinary Catheter Management Indwelling Urethral Catheter Cath placed during this visit: yes Reason for continuing: Hourly intake/output Insertion date: 05/25/18 Insertion time: 21:00 Results - Labs CBC & Chem 7: 05/25/18 20:45 05/25/18 20:45 Laboratory Results - last 24 hr 05/25/18 05/25/18 05/25/18 20:45 20:45 20:45 WBC 14.0 H RBC 4.69 Hgb 13.0 Hct 38.1 MCV 81.3 MCH 27.6 MCHC 34.0 RDW 18.1 H Plt Count 390 MPV 8.3 Neut % (Auto) 84.3 H Lymph % (Auto) 8.5 L [place] % (Auto) 6.8 Eos % (Auto) 0.1 Baso % (Auto) 0.3 Neut # (Auto) 11.8 H Lymph # (Auto) 1.2 [place] # (Auto) 1.0 H Eos # (Auto) 0.0 Baso # (Auto) 0.0 WBC Differential . Differential Comment Auto diff final PT 11.8 H INR 1.2 APTT 26.2 Sodium 139 Potassium 4.0 Chloride 106 Carbon Dioxide 20.4 L Anion Gap 13 BUN 15 Creatinine 0.96 Estimated GFR 58 L POC Glucose Random Glucose 96 Lactic Acid Calcium 10.0 Total Bilirubin 0.5 AST 15 ALT 20 Alkaline Phosphatase 136 H Ammonia Total Creatine Kinase 85 Troponin I Less than 0.02 L B-Natriuretic Peptide Total Protein 8.1 Albumin 4.0 Lipase 81 TSH 0.318 L Urine Color Urine Clarity Urine pH Ur Specific [place] Urine Protein Urine Glucose (UA) Urine Ketones Urine Occult Blood Urine Nitrate Urine Bilirubin Urine Urobilinogen Ur Leukocyte Esterase Urine RBC Urine WBC Ur Squamous Epith Cells Ur Transition Epith Cell Hyaline Casts Micro UA Comment Urine Culture Comments Salicylates Urine Opiates Screen Acetaminophen Less than 0.2 L Ur Barbiturates Screen Ur Amphetamines Screen U Benzodiazepines Scrn Urine Cocaine Screen U Cannabinoids Screen Serum Alcohol Less than 3 05/25/18 05/25/18 05/25/18 20:45 20:45 20:45 WBC RBC Hgb Hct MCV MCH MCHC RDW Plt Count MPV Neut % (Auto) Lymph % (Auto) [place] % (Auto) Eos % (Auto) Baso % (Auto) Neut # (Auto) Lymph # (Auto) [place] # (Auto) Eos # (Auto) Baso # (Auto) WBC Differential Differential Comment PT INR APTT Sodium Potassium Chloride Carbon Dioxide Anion Gap BUN Creatinine Estimated GFR POC Glucose Random Glucose Lactic Acid Calcium Total Bilirubin AST ALT Alkaline Phosphatase Ammonia Less than 10 L Total Creatine Kinase Cancelled Troponin I B-Natriuretic Peptide Total Protein Albumin Lipase Cancelled TSH Urine Color Urine Clarity Urine pH Ur Specific [place] Urine Protein Urine Glucose (UA) Urine Ketones Urine Occult Blood Urine Nitrate Urine Bilirubin Urine Urobilinogen Ur Leukocyte Esterase Urine RBC Urine WBC Ur Squamous Epith Cells Ur Transition Epith Cell Hyaline Casts Micro UA Comment Urine Culture Comments Salicylates 3.2 Urine Opiates Screen Acetaminophen Ur Barbiturates Screen Ur Amphetamines Screen U Benzodiazepines Scrn Urine Cocaine Screen U Cannabinoids Screen Serum Alcohol 05/25/18 05/25/18 05/25/18 20:45 20:45 20:47 WBC RBC Hgb Hct MCV MCH MCHC RDW Plt Count MPV Neut % (Auto) Lymph % (Auto) [place] % (Auto) Eos % (Auto) Baso % (Auto) Neut # (Auto) Lymph # (Auto) [place] # (Auto) Eos # (Auto) Baso # (Auto) WBC Differential Differential Comment PT INR APTT Sodium Potassium Chloride Carbon Dioxide Anion Gap BUN Creatinine Estimated GFR POC Glucose 114 H Random Glucose Lactic Acid Calcium Total Bilirubin AST ALT Alkaline Phosphatase Ammonia Total Creatine Kinase Troponin I B-Natriuretic Peptide Cancelled 16 Total Protein Albumin Lipase TSH Urine Color Urine Clarity Urine pH Ur Specific [place] Urine Protein Urine Glucose (UA) Urine Ketones Urine Occult Blood Urine Nitrate Urine Bilirubin Urine Urobilinogen Ur Leukocyte Esterase Urine RBC Urine WBC Ur Squamous Epith Cells Ur Transition Epith Cell Hyaline Casts Micro UA Comment Urine Culture Comments Salicylates Urine Opiates Screen Acetaminophen Ur Barbiturates Screen Ur Amphetamines Screen U Benzodiazepines Scrn Urine Cocaine Screen U Cannabinoids Screen Serum Alcohol 05/25/18 05/25/18 05/26/18 21:30 21:30 01:20 WBC RBC Hgb Hct MCV MCH MCHC RDW Plt Count MPV Neut % (Auto) Lymph % (Auto) [place] % (Auto) Eos % (Auto) Baso % (Auto) Neut # (Auto) Lymph # (Auto) [place] # (Auto) Eos # (Auto) Baso # (Auto) WBC Differential Differential Comment PT INR APTT Sodium Potassium Chloride Carbon Dioxide Anion Gap BUN Creatinine Estimated GFR POC Glucose Random Glucose Lactic Acid 1.2 Calcium Total Bilirubin AST ALT Alkaline Phosphatase Ammonia Total Creatine Kinase Troponin I B-Natriuretic Peptide Total Protein Albumin Lipase TSH Urine Color Yellow Urine Clarity Hazy H Urine pH 6.0 Ur Specific [place] 1.009 Urine Protein Negative Urine Glucose (UA) Negative Urine Ketones Negative Urine Occult Blood Small H Urine Nitrate Negative Urine Bilirubin Negative Urine Urobilinogen Less than 2 Ur Leukocyte Esterase Large H Urine RBC 3 Urine WBC 24 H Ur Squamous Epith Cells 1 Ur Transition Epith Cell 1 Hyaline Casts 1 Micro UA Comment Cath-culture ind Urine Culture Comments Cath-cult indicated Salicylates Urine Opiates Screen Neg Acetaminophen Ur Barbiturates Screen Neg Ur Amphetamines Screen Neg U Benzodiazepines Scrn Neg Urine Cocaine Screen Neg U Cannabinoids Screen Neg Serum Alcohol - Imaging Impressions Chest X-Ray 05/25/18 20:32 CONCLUSION: No definite acute abnormality is seen. There is chronic linear density at the right upper lung and old left rib fractures. Head CT 05/25/18 20:32 CONCLUSION: 1. No acute intracranial abnormality is seen. 2. Surgical screw seen through the dens with some lucency seen around the screw. . Assessment and Plan - Plan 1. Hypertensive encephalopathy versus septic encephalopathy Altered mental status/agitation Unclear etiology Head CT negative for acute process Urine toxicology screen negative Acetaminophen, salicylates negative Concern for Benadryl overdose given patient takes Benadryl and Excedrin PM regularly. The patient's cannot quantify an amount. Poison control contacted out of concern for Benadryl overdose Ativan for agitation Repeat EKG pending Obtain neurology consult in next 24 hours if symptoms does not improve Nifedipine drip to keep blood pressure less than 160 2. Sepsis on presentation with presenting leukocytosis and tachycardia with source urinary tract infection UA consistent with UTI Urine culture pending Rocephin IV 3. Hypertension/hypertensive crisis, emergency/tachycardia Likely secondary to severe agitation Monitor closely IV labetalol if needed Currently on nifedipine drip and titrate 4. FEN N.p.o., swallow evaluation Electrolytes: Monitor and replete as needed Heparin NS at 70 cc/hour
[2018-05-26] MEDS ORDERED: Dextrose 50% in Water 50 ML Vial IV.PUSH PRN (15:01)
--- NOTE | 2018-05-26 18:52 | ECG ---
Date Performed: 05/25/2018 Time Performed: 20:24:02 PTAGE: 67 years EKG: SINUS TACHYCARDIA POSSIBLE LEFT ATRIAL ENLARGEMENT NONSPECIFIC T-WAVE ABNORMALITY ABNORMAL RHYTHM ECG PREVIOUS TRACING : 07/16/2017 15.33 Compared to previous tracing, rate faster DOCTOR: Nick Dumont Interpretating Date/Time 05/26/2018 18:51:12
[2018-05-26] MEDS: Insulin NovoLOG Aspart Correctional Sugar Inj SQ SCH ×2 (19:37→22:23)
[2018-05-26] MEDS: Aspirin 300 MG Supp RECTAL SCH (19:38)
--- NOTE | 2018-05-26 21:55 | US ---
EXAM DATE: 05/26/2018 9:51 PM EDT AGE/SEX: 67 years / Female INDICATIONS: Altered mental status. CLINICAL DATA: This is the patient's initial encounter. Patient reports that signs and symptoms have been present for 2 days and indicates a pain score of 0/10. MEDICAL/SURGICAL HISTORY: Chronic obstructive pulmonary disease. Emphysema. Hypertension. An xiety. Back pain. Pulmonary hypertension. Respiratory failure. Sepsis. Hysterectomy. Back surgery. COMPARISON: No prior exams available for comparison. VELOCITY PARAMETERS: ICA/CCA Ratio: Right 0.8 , Left 0.8 ICA: Right 58 cm/sec, Left 58 cm/sec CCA: Right 69 cm/sec, Left 73 cm/sec ECA: Right 78 cm/sec, Left 68 cm/sec Vertebral: Right 61 cm/sec antegrade, Left 48 cm/sec antegrade FINDINGS: Right Carotid: No significant plaque is visualized.The waveforms are within normal limits. Left Carotid: No significant plaque is visualized. The waveforms are within normal limits. Other: None. Electronically signed by: Moustapha Faulkner MD 05/26/2018 9:53 PM EDT
--- NOTE | 2018-05-26 22:51 | MB ---
cc: Sue House MD DATE: 05/26/2018 AGE: [age] years old. REASON FOR CONSULTATION: Possible stroke. Change in mental status. HISTORY OF PRESENT ILLNESS: This is a 67-year-old woman brought into the ED for altered mental status and agitation. Apparently, she was agitated yesterday. Her went to work and when he came home he found her more agitated. Apparently, she was up all night, unable to sleep from the agitation. When he came back from work, he found her in bed, only answering yes and no type questions, making abnormal movements of her extremities, flopping. Hence, he called EMS, brought her to the hospital, and the patient is admitted. There is some report of possible excess of Benadryl and/or Excedrin PM or both. The patient is currently in restraints, lethargic, unable to answer any questions. PAST MEDICAL HISTORY: Anxiety, back pain, COPD, empyema, hypertension, pulmonary hypertension, sepsis, respiratory issues in the past. SURGICAL HISTORY: Back surgery, hysterectomy. SOCIAL HISTORY: . Smokes daily, amount unknown. Alcohol per chart states yes, unable to elaborate on how much. HOME MEDICINES: Not listed. PHYSICAL EXAMINATION: VITAL SIGNS: Temperature is 97.8, pulse 82, respiratory rate 24, blood pressure 170/88, saturating at 96% on room air. Initially when she came in, her blood pressure was 231/130 and placed on Cardene. NECK: Supple. HEART: Regular. NEUROLOGIC: She is somnolent, arousable, opens her eyes, briefly looks at examiner but does not follow commands, then goes closes her eyes again. Her pupils are reactive. There is some questionable asymmetry over the left face, but the patient does not have teeth, and dentures are not known if she has any or not. She will not stick her tongue out. Motor-garcia, she seems to be moving everything and withdrawing to painful stimuli. DTRs are 1+. She withdraws to pain. Toes withdraws. Cerebellar gait cannot be assessed. LABORATORY DATA: White count is 14, platelets are 390,000, neutrophils percent 84.3. Coagulation panel: PT 11.8. Chemistry: She came in with a normal sodium of 139, CO2 of 20.4, glucose 114, GFR 58, ammonia less than 10. Alkaline phosphatase 136. ALT, AST are normal. TSH 0.318. Albumin is 4. Urine showed haziness, small blood, large leukocyte esterase, 24 white cells. Culture is pending. Tox screen was negative. Alcohol less than 3. Acetaminophen less than 0.2. Microbiology is still pending. Imaging reports CT of the head, no acute abnormality. Some screws were seen at the dens and some lucency, so she probably had some cervical spine surgery. Chest x-ray: No acute abnormality. Chronic linear density in the right upper lobe and old left rib fractures. IMPRESSION: 1. Hypertension, likely urgency. Continue Cardene. 2. Change in mental status, etiology unknown. 3. Questionable stroke versus possible seizure, at this point again unknown. We will go ahead and get an EEG, get an MRI of brain, native of [place] MRA, carotid ultrasound, 2D echo. Continue aspirin rectally 300 mg. Hemoglobin A1c, lipid panel pending as well. SCDs and subcutaneous heparin for DVT prevention. She is n.p.o. PT, OT, speech therapy consults are pending. Rehabilitation consult in the event that she did have a stroke, and depending on findings, further recommendations to be made. MD HELLEN Vargas/tapan/raya , 03:58 PM , 04:12 PM
[2018-05-27] MEDS: Heparin - SQ 10,000 UNITS/ML Vial SQ SCH ×2 (00:20→12:45)
[2018-05-27] MEDS: niCARdipine Inj 25 MG in Sodium Chlor 0.9% Inj 240 ML IV.CONT PRN (00:59)
[2018-05-27] MEDS: Sod Chloride 0.9% Inj 1,000 ML IV.CONT SCH ×3 (05:34→18:50)
[2018-05-27 07:49] LABS: Baso % (Auto) 0.3 % (0.0-2.0); Eos # (Auto) 0.1 th/mm3 (0.0-0.4); Eos % (Auto) 0.7 % (0.0-4.0); Hematocrit 39.9 % (35.0-46.0); Lymph # (Auto) 1.4 th/mm3 (1.0-4.8); Lymph % (Auto) 12.8 % (9.0-44.0); Mean Corpuscular HGB Conc 33.2 % (32.0-36.0); Mean Corpuscular Hemoglobin 27.5 pg (27.0-34.0); Mean Corpuscular Volume 83.1 fL (80.0-100.0); Mean Platelet Volume 8.1 fL (7.0-11.0); Mono % (Auto) 9.2 % (0.0-8.0); Neut # (Auto) 8.5 th/mm3 (1.8-7.7); Platelet Count 281 th/mm3 (150-450); Red Blood Count 4.81 mil/mm3 (4.00-5.30); Red Cell Distribution Width 18.4 % (11.6-17.2)
[2018-05-27 07:51] LABS: Hemoglobin 13.2 gm/dL (11.6-15.3)
[2018-05-27 08:11] LABS: Calcium 8.6 mg/dL (8.5-10.1); Carbon Dioxide 23.8 meq/L (21.0-32.0); Chol/HDL Ratio 3.47 Ratio; HDL Cholesterol 49.8 mg/dL (40.0-60.0); Potassium 3.6 meq/L (3.5-5.1)
[2018-05-27] MEDS: Senna/Docusate Sodium 8.6/50 MG Tablet PO SCH ×2 (10:04→21:22)
[2018-05-27] MEDS: Aspirin 300 MG Supp RECTAL SCH (10:07)
[2018-05-27] MEDS: Insulin NovoLOG Aspart Correctional Sugar Inj SQ SCH ×4 (10:07→21:27)
[2018-05-27] MEDS: Acetaminophen 325 MG Tablet PO PRN (12:43)
--- NOTE | 2018-05-27 13:27 | P.PNIM ---
Subjective Interval history: Patient complained of chronic back pain which in the past has been on [place]. She seems more awake and alert however mildly confused at times. No further agitation. Nursing staff states her feels her mental status is improved overnight however is not at baseline yet. Physical Exam Vital signs: Vital Signs 05/26/18 16:00 05/26/18 20:00 05/26/18 21:00 Temperature 97.0 F L 97.7 F Pulse Rate 90 88 88 Respiratory Rate 27 H 34 H 31 H Blood Pressure 154/83 H 164/84 H 155/82 H Pulse Oximetry 100 99 97 05/26/18 21:11 05/26/18 21:29 05/26/18 22:00 Temperature Pulse Rate 88 88 Respiratory Rate 20 Blood Pressure 145/69 H Pulse Oximetry 100 98 05/26/18 23:00 05/26/18 23:29 05/27/18 00:00 Temperature 97.8 F Pulse Rate 92 H 92 H 92 H Respiratory Rate 29 H 33 H Blood Pressure 154/83 H 162/91 H Pulse Oximetry 98 100 05/27/18 01:00 05/27/18 02:00 05/27/18 03:00 Temperature Pulse Rate 94 H 86 94 H Respiratory Rate 25 H 23 27 H Blood Pressure 129/86 144/86 H 130/70 Pulse Oximetry 97 98 97 05/27/18 04:00 05/27/18 05:00 05/27/18 06:00 Temperature 97.7 F Pulse Rate 82 75 82 Respiratory Rate 20 24 27 H Blood Pressure 148/86 H 146/84 H 146/88 H Pulse Oximetry 99 99 100 05/27/18 07:37 05/27/18 08:00 05/27/18 09:00 Temperature 98.7 F Pulse Rate 87 87 Respiratory Rate 25 H Blood Pressure 149/80 H Pulse Oximetry 100 100 05/27/18 12:00 Temperature 98.2 F Pulse Rate 92 H Respiratory Rate 33 H Blood Pressure 177/100 H Pulse Oximetry 100 Intake & Output 05/26/18 05/27/18 05/27/18 18:59 06:59 18:59 Intake Total 2900 / 2900 1500 / 1500 100 / 100 Output Total 2049 / 2049 1350 / 1350 Balance 850 / 850 150 / 150 100 / 100 Weight 58.8 kg Intake: IV 2900 / 2900 1500 / 1500 100 / 100 NS Inj 1,000 ML @ 70 mls/hr IV. 1999 / 1999 1000 / 1000 CONT .[id number] [facility] Rx#:[id number] Cardene Inj 25 MG In NS Inj 240 500 / 500 500 / 500 ML @ 5 MG/HR 50 mls/hr IV.CONT TITRATE PRN Rx#:[id number] Rocephin Inj 1,000 MG In NS Inj 100 / 100 100 / 100 100 ML @ 200 mls/hr IV.SIG Q24H [facility] Rx#:[id number] Output: Urine Amount (Catheter) 2049 1350 / 1350 Indwelling Urethral Catheter 2049 1350 / 1350 Narrative: GENERAL: This is a well-nourished, well-developed patient, mildly agitated, confused CARDIOVASCULAR: Regular rate and rhythm with RESPIRATORY: Clear to auscultation. Breath sounds equal bilaterally. No wheezes , rales, or rhonchi. GASTROINTESTINAL: Abdomen soft, non-tender, nondistended. Normal active bowel sounds MUSCULOSKELETAL: Extremities without clubbing, cyanosis, or edema. NEURO: Alert and in awake to person place but not fully to situation alert to time - Urinary Catheter Management Indwelling Urethral Catheter Cath placed during this visit: yes Reason for continuing: Hourly intake/output Insertion date: 05/25/18 Insertion time: 21:00 Results - Labs CBC & Chem 7: 05/27/18 07:21 05/27/18 07:21 Laboratory Results - last 24 hr 05/25/18 05/26/18 05/26/18 21:30 19:05 22:17 WBC RBC Hgb Hct MCV MCH MCHC RDW Plt Count MPV Neut % (Auto) Lymph % (Auto) Graves % (Auto) Eos % (Auto) Baso % (Auto) Neut # (Auto) Lymph # (Auto) Graves # (Auto) Eos # (Auto) Baso # (Auto) WBC Differential Differential Comment Hematology Comments Sodium Potassium Chloride Carbon Dioxide Anion Gap BUN Creatinine Estimated GFR POC Glucose 98 98 Random Glucose Calcium Triglycerides Cholesterol LDL Cholesterol, Calc HDL Cholesterol Cholesterol/HDL Ratio Urine Color Yellow Urine Clarity Hazy H Urine pH 6.0 Ur Specific [place] 1.009 Urine Protein Negative Urine Glucose (UA) Negative Urine Ketones Negative Urine Occult Blood Small H Urine Nitrate Negative Urine Bilirubin Negative Urine Urobilinogen Less than 2 Ur Leukocyte Esterase Large H Urine RBC 3 Urine WBC 24 H Ur Squamous Epith Cells 1 Ur Transition Epith Cell 1 Hyaline Casts 1 Micro UA Comment Cath-culture ind Urine Culture Comments Cath-cult indicated 05/27/18 05/27/18 07:21 07:21 WBC 11.0 RBC 4.81 Hgb 13.2 Hct 39.9 MCV 83.1 MCH 27.5 MCHC 33.2 RDW 18.4 H Plt Count 281 MPV 8.1 Neut % (Auto) 77.0 H Lymph % (Auto) 12.8 Graves % (Auto) 9.2 H Eos % (Auto) 0.7 Baso % (Auto) 0.3 Neut # (Auto) 8.5 H Lymph # (Auto) 1.4 Graves # (Auto) 1.0 H Eos # (Auto) 0.1 Baso # (Auto) 0.0 WBC Differential . Differential Comment Auto diff final Hematology Comments Sodium 142 Potassium 3.6 Chloride 109 H Carbon Dioxide 23.8 Anion Gap 9 BUN 7 Creatinine 0.70 Estimated GFR 84 L POC Glucose Random Glucose 83 Calcium 8.6 D Triglycerides 133 Cholesterol 173 LDL Cholesterol, Calc 97 HDL Cholesterol 49.8 Cholesterol/HDL Ratio 3.47 Urine Color Urine Clarity Urine pH Ur Specific [place] Urine Protein Urine Glucose (UA) Urine Ketones Urine Occult Blood Urine Nitrate Urine Bilirubin Urine Urobilinogen Ur Leukocyte Esterase Urine RBC Urine WBC Ur Squamous Epith Cells Ur Transition Epith Cell Hyaline Casts Micro UA Comment Urine Culture Comments Microbiology 05/25/18 20:25 Blood - Peripheral Aerobic Blood Culture - Preliminary No growth in 1 day 05/25/18 20:25 Blood - Peripheral Anaerobic Blood Culture - Preliminary No growth in 1 day 05/25/18 20:30 Blood - Peripheral Aerobic Blood Culture - Preliminary No growth in 1 day 05/25/18 20:30 Blood - Peripheral Anaerobic Blood Culture - Preliminary No growth in 1 day 05/25/18 21:30 Clean Catch Urine Urine Culture - Preliminary Pseudomonas aeruginosa - Imaging Impressions Carotid Doppler Study 05/26/18 00:00 CONCLUSION: No significant stenosis is seen. Assessment and Plan - Plan 1. Hypertensive encephalopathy versus septic encephalopathy Altered mental status/agitationimproving Unclear etiology but likely due to hypertensive encephalopathy versus septic encephalopathy. Head CT negative for acute process Urine toxicology screen negative Acetaminophen, salicylates negative Concern for Benadryl overdose given patient takes Benadryl and Excedrin PM regularly. The patient's cannot quantify an amount. Poison control contacted out of concern for Benadryl overdose Ativan for agitation Repeat EKG pending MRI of the brain currently pending to rule out underlying CVA Nifedipine drip weaned off and will start patient on Procardia XL 60 mg p.o. daily 2. Sepsis on presentation with presenting leukocytosis and tachycardia with source urinary tract infection with pulmonary cultures show Pseudomonas UA consistent with UTI Urine culture pending Rocephin IV Add Levaquin to the regimen until final urine cultures sensitivity available. Leukocytosis has improved overnight. 3. Hypertension/hypertensive crisis, emergency/tachycardia Likely secondary to severe agitation Monitor closely IV labetalol if needed Currently improving off nifedipine drip and will start p.o. Procardia 4. FEN Past swallow evaluation will start mechanical soft diet. 5. Chronic neck and back pain will start Tylenol and Flexeril as needed. 6. DVT prophylaxisheparin Transfer out of ICU Discharge Planning: May need home with home health care based on clinical status upon discharge.
--- NOTE | 2018-05-27 13:42 | MR ---
EXAM DATE: 05/27/2018 1:32 PM EDT AGE/SEX: 67 years / Female INDICATIONS: Altered mental status. CLINICAL DATA: This is the patient's subsequent encounter. Patient reports that signs and symptoms h ave been present for 2 days and indicates a pain score of 0/10. MEDICAL/SURGICAL HISTORY: Hypertension. Chronic obstructive pulmonary disease. Fusion, cervica l. Fusion, lumbar. Hysterectomy. COMPARISON: C, MRA HEAD W/O CONTRAST, 05/27/2018. . TECHNIQUE: Multiplanar, multisequence examination of the brain was performed without contrast. FINDINGS: Cerebrum: The ventricles are normal for age. No evidence of midline shift, mass lesion, hemorrhage or acute infarction. No extraaxial fluid collections are seen. The pituitary gland and suprasellar cistern are normal in configuration. White Matter: On the FLAIR weighted images there is increased signal in white matter characteristic of chronic small vessel screening changed. Posterior Fossa: The cerebellum and brainstem are intact. The 4th ventricle is midline. The cerebel lopontine angle is unremarkable. The cerebellar tonsils are normal in position. Diffusion Imaging: No focal areas of restricted diffusion are seen. No evidence of acute infarction . Extracranial: The visualized portions of the orbits and paranasal sinuses are unremarkable. CONCLUSION: 1. No acute hemorrhage, mass or evidence of infarction. 2. Chronic small vessel ischemic changes. Electronically signed by: Jose Maria Kilgore MD 05/27/2018 1:41 PM EDT
--- NOTE | 2018-05-27 13:43 | MR ---
EXAM DATE: 05/27/2018 1:30 PM EDT AGE/SEX: 67 years / Female INDICATIONS: Altered mental status. CLINICAL DATA: This is the patient's subsequent encounter. Patient reports that signs and symptoms h ave been present for 2 days and indicates a pain score of 0/10. MEDICAL/SURGICAL HISTORY: Hypertension. Chronic obstructive pulmonary disease. Fusion, cervica l. Fusion, lumbar. Hysterectomy. COMPARISON: [facility] [place], MR HEAD W/O CONTRAST, 05/27/2018. . TECHNIQUE: 3D [id number] MRA was performed. Source images, multiplanar STS MIP, and 3D volum e MIP reconstructions were reviewed. FINDINGS: There is excellent visualization of the major intracranial arteries out to the second-order branch ve ssels. There is no evidence for aneurysm, vessel truncation or stenosis, and no evidence for vascula r malformation. CONCLUSION: 1. Negative exam. Electronically signed by: Jose Maria Kilgore MD 05/27/2018 1:42 PM EDT
[2018-05-27] MEDS: levoFLOXacin 500 MG Tablet PO SCH (14:11)
--- NOTE | 2018-05-27 17:23 | ECHRPT ---
Indication: CVA/TIA CONCLUSIONS The left ventricular systolic function is moderately reduced with an estimated ejection fraction in the range of 40-45%. Normal left ventricular size. Wall thickness is normal. There is trace tricuspid valve regurgitation. The estimated pulmonary arterial pressure is 36.8 mmHg. BP: / HR: Rhythm: Sinus MEASUREMENTS (Male / Female) Normal Values Technical Quality:Fair 2D ECHO LVOT Diameter 2.2 cm Aortic Root Diameter 3.4 cm M-MODE AV Cusp Separation MM 1.9 cm DOPPLER AV Peak Velocity 134.5 cm/s AV Peak Gradient 7.2 mmHg AV Mean Gradient 4.0 mmHg AV Velocity Time Integral 16.8 cm LVOT Peak Velocity 143.0 cm/s LVOT Peak Gradient 8.2 mmHg LVOT Velocity Time Integral 22.2 cm AV Area Cont Eq vti 5.0 cm AV Area Cont Eq pk 4.0 cm Mitral E Point Velocity 60.7 cm/s Mitral A Point Velocity 89.6 cm/s Mitral E to A Ratio 0.7 LV E' Lateral Velocity 4.4 cm/s Mitral E to LV E' Lateral Ratio 13.8 LV E' Septal Velocity 5.4 cm/s Mitral E to LV E' Septal Ratio 11.3 TR Peak Velocity 259.0 cm/s TR Peak Gradient 26.8 mmHg Right Atrial Pressure 10.0 mmHg Pulmonary Artery Systolic Pressu 36.8 mmHg Right Ventricular Systolic Press 36.8 mmHg PV Peak Velocity 84.2 cm/s PV Peak Gradient 2.8 mmHg FINDINGS LEFT VENTRICLE The left ventricular systolic function is moderately reduced with an estimated ejection fraction in the range of 40-45%. Normal left ventricular size. Wall thickness is normal. RIGHT VENTRICLE Normal right ventricular size and systolic function. LEFT ATRIUM The left atrial size is normal. RIGHT ATRIUM The right atrial size is normal. ATRIAL SEPTUM The interatrial septum not well visualized. AORTA The aortic root and proximal ascending aorta are not well visualized. MITRAL VALVE Structurally normal mitral valve. No mitral valve stenosis or regurgitation. AORTIC VALVE The aortic valve is not well visualized. TRICUSPID VALVE There is trace tricuspid valve regurgitation. The estimated pulmonary arterial pressure is 36.8 mmHg. PULMONARY VALVE The pulmonary valve is not well visualized. Francesco Turcios MD, FACC, FSCAI (Electronically Signed) Final Date:27 May 2018 17:22
[2018-05-28] MEDS: Acetaminophen 325 MG Tablet PO PRN ×4 (00:25→20:18)
[2018-05-28] MEDS: Heparin - SQ 10,000 UNITS/ML Vial SQ SCH ×3 (00:26→23:35)
[2018-05-28] MEDS: Sod Chloride 0.9% Inj 1,000 ML IV.CONT SCH ×3 (05:00→22:55)
[2018-05-28] MEDS: levoFLOXacin 500 MG Tablet PO SCH (08:09)
[2018-05-28] MEDS: Aspirin 325 MG Tablet PO SCH (08:09)
[2018-05-28] MEDS: Senna/Docusate Sodium 8.6/50 MG Tablet PO SCH ×2 (08:09→20:20)
[2018-05-28] MEDS: Insulin NovoLOG Aspart Correctional Sugar Inj SQ SCH ×4 (08:14→20:14)
--- NOTE | 2018-05-28 09:48 | MG ---
cc: Artem Davison MD EEG NUMBER: [id number] NOTE: Surgical screw. Change in mental status, anxiety. MEDICATIONS: Ceftriaxone. FINDINGS: 10-12 Hz, 40-50 microvolt posterior and diffuse rhythm is seen. Some theta slowing is noted at times bilaterally and at times 8-9 Hz, symmetric posterior rhythm is noted. Photic stimulation is performed without significant posterior driving. The patient has some bitemporal theta slowing, even occasionally in the delta range. Hyperventilation is not performed. There is a right arm jerks seen, but did not correlate with any seizure activity. Appears the patient probably falls asleep but does not reach stage II sleep. IMPRESSION: Some mild diffuse theta slowing consistent with mild to moderate diffuse encephalopathy. No focal abnormalities noted. No seizure activity was seen. MD RHEA Troy/RILEY , 09:35 AM , 09:39 AM
--- NOTE | 2018-05-28 11:46 | P.PN ---
Subjective Interval history: awake and alert, oriented x 3 no complains of headaches, nausea or vomiting states frequent UTIs in the past states history of chronic pain Physical Exam Vital signs: Vital Signs 05/27/18 12:00 05/27/18 14:00 05/27/18 16:00 Temperature 98.2 F 97.8 F Pulse Rate 92 H 90 89 Respiratory Rate 33 H 24 Blood Pressure 177/100 H 162/90 H Pulse Oximetry 100 100 05/27/18 18:00 05/27/18 20:00 05/28/18 00:00 Temperature 97.4 F L 98.2 F Pulse Rate 87 91 H 91 H Respiratory Rate 20 20 Blood Pressure 145/87 H 161/88 H Pulse Oximetry 97 97 05/28/18 04:00 05/28/18 07:00 05/28/18 08:00 Temperature 97.8 F 98 F Pulse Rate 87 80 Respiratory Rate 18 16 16 Blood Pressure 155/72 H 161/91 H Pulse Oximetry 98 100 05/28/18 08:04 Temperature Pulse Rate 89 Respiratory Rate Blood Pressure Pulse Oximetry Intake & Output 05/27/18 05/28/18 05/28/18 18:59 06:59 18:59 Intake Total 740 / 740 1100 / 1100 Output Total 850 / 850 700 / 700 Balance -110 / -110 -700 / -700 1100 / 1100 Weight 57.6 kg Intake: IV 320 / 320 1100 / 1100 NS Inj 1,000 ML @ 70 mls/hr IV. 1000 / 1000 CONT .[id number] [facility] Rx#:[id number] Cardene Inj 25 MG In NS Inj 240 220 / 220 ML @ 5 MG/HR 50 mls/hr IV.CONT TITRATE PRN Rx#:[id number] Rocephin Inj 1,000 MG In NS Inj 100 / 100 100 / 100 100 ML @ 200 mls/hr IV.SIG Q24H [facility] Rx#:[id number] Oral 420 / 420 Output: Urine 700 / 700 Urine Amount (Catheter) 850 / 850 Indwelling Urethral Catheter 850 / 850 Other: Date of Last Bowel Movement 05/28/18 Narrative: GENERAL: awake and alert, oriented x 3, able to give good history CARDIOVASCULAR: Regular rate and rhythm RESPIRATORY: Clear to auscultation. Breath sounds equal bilaterally. No wheezes , rales, or rhonchi. GASTROINTESTINAL: Abdomen soft, non-tender, nondistended. Normal active bowel sounds, no CVA tenderness MUSCULOSKELETAL: Extremities without clubbing, cyanosis, or edema. NEURO: Alert and in awake to person place x 3, CN intact, brandon 5.5 all extremities gait- per aptient uses a walker for safety - Urinary Catheter Management Indwelling Urethral Catheter Cath placed during this visit: yes Reason for continuing: Hourly intake/output Insertion date: 05/25/18 Insertion time: 21:00 Results - Labs CBC & Chem 7: 05/27/18 07:21 05/27/18 07:21 Laboratory Results - last 24 hr 05/27/18 05/27/18 05/27/18 07:21 14:08 21:26 POC Glucose 88 92 Hemoglobin A1c 5.0 05/28/18 05/28/18 07:03 11:06 POC Glucose 96 162 H Hemoglobin A1c Microbiology 05/25/18 20:25 Blood - Peripheral Aerobic Blood Culture - Preliminary No growth in 2 days 05/25/18 20:25 Blood - Peripheral Anaerobic Blood Culture - Preliminary No growth in 2 days 05/25/18 20:30 Blood - Peripheral Aerobic Blood Culture - Preliminary No growth in 2 days 05/25/18 20:30 Blood - Peripheral Anaerobic Blood Culture - Preliminary No growth in 2 days 05/25/18 21:30 Clean Catch Urine Urine Culture - Final Pseudomonas aeruginosa - Imaging Impressions Head MRI 05/27/18 00:00 CONCLUSION: 1. No acute hemorrhage, mass or evidence of infarction. 2. Chronic small vessel ischemic changes. Head MRA 05/27/18 00:00 CONCLUSION: 1. Negative exam. Assessment and Plan - Plan 67 years old female Altered MS multifactorial secondary to sepsis/HTN encephalopathy - MS resolved- l Sepsis criteria secondary to UTI- Pseudomonas on culture Leukocytosis - imrpoved -DC Rocephin and Levaquin- resistant - get ULtrasound of the bladder, kidneys - may need urodynamic studies as OP- states frequent UTIs - get ID consutl for recommendations - start Azactam 1 gm q 8- PCN allergy- severe hives per report -DC brown now- then check post voiding residual urine-if there is any retention hypertensive encephalopathy - MS improved CMP- EF 45%- clinically not in failure Head CT negative for acute process Urine toxicology screen negative Acetaminophen, salicylates negative Concern for Benadryl overdose given patient takes Benadryl and Excedrin PM regularly. The patient's cannot quantify an amount. Poison control contacted out of concern for Benadryl overdose MRI of the brain - negative Nicardipine drip weaned off now on Procardia XL 60 mg p.o. daily review old visits- at one point was on procardia, BB, Hydralazine on review of 2017 visit- monitor patient states ran ourt of meds- because she lost insurance- now got [place] start Coreg for additional BP control- low EF Chronic neck and back pain will start Tylenol and Flexeril as needed. - pt consult - sounds like she was ff by pain management as OP at one point states hisotyr of PUD- on Zegerid - start po PPI DVT prophylaxisheparin Discharge Planning: CM consult- needs a PCP May need home with home health care based on clinical status upon discharge.
--- NOTE | 2018-05-28 15:57 | MB ---
cc: Felipe Galdamez MD DATE: 05/28/2018 REQUESTING PHYSICIAN: Dr. Ellison REASON FOR CONSULTATION: Encephalopathy secondary to UTI. Urine culture growing Pseudomonas. Penicillin allergy. HISTORY OF PRESENT ILLNESS: This is a 67-year-old white female who was brought to the emergency department after she was found with altered mental status at home. The patient was evaluated on the evening of 05/25/2018. Reportedly, the patient's came home and found her to be with altered mental status with agitation and would not answer any questions except with yes/no answers. He also reported per medical record that he found on the floor and put her back in bed, and she continued to be delirious when she was brought to the emergency department. In the emergency department, temperature was 97.9 degrees, heart rate was 127, and white count was elevated at 14.0. CT of the head showed no acute intracranial abnormality. The patient was evaluated by Neurology the following day after admission, and she was noted to have restraints and was lethargic and unable to answer questions. The patient is able to answer questions for me and is fluent and communicative and is in no acute distress. She is not in restraints currently. She tells me that she has a history of peptic ulcer disease, and she has some pain in the lower abdomen, at the suprapubic area. Culture of the blood has no growth in 2 days. Urine culture came back positive for Pseudomonas aeruginosa. White blood cell count has improved and is currently 11.0. The patient denies back pain. She reports to me that she is making good urine currently. She has no Linares in place. PAST MEDICAL HISTORY: Hypertension, COPD, empyema, anxiety disorder, back pain, history of respiratory failure, history of hysterectomy, history of back surgery. ALLERGIES: 1. PENICILLIN. 2. SULFA. MEDICATIONS: 1. Aztreonam. 2. Aspirin. 3. Flexeril. 4. Subcutaneous heparin. 5. Insulin. 6. Procardia-XL. 7. Pallavi-Colace. SOCIAL HISTORY: The patient lives with her and has been involved in raising the 3 grandchildren who live with her. Positive tobacco. Denies alcohol. Denies illicit drugs. FAMILY HISTORY: Noncontributory. REVIEW OF SYSTEMS: CONSTITUTIONAL: Significant for fever. Denies chills. HEAD, EARS, EYES, NOSE AND THROAT: Denies visual blurring or diplopia. Denies difficulty swallowing. Denies soreness of the throat. CARDIOVASCULAR: Denies palpitations or chest pain. RESPIRATORY: Denies cough or shortness of breath. GASTROINTESTINAL: Significant for abdominal pain. Denies nausea, vomiting or diarrhea. ENDOCRINE: No polyuria or polydipsia. HEMATOPOIETIC: No easy bruising. INTEGUMENTARY: Denies skin rash or itching. NEUROLOGIC: Denies problems with coordination. PSYCHIATRIC: Denies mood changes or depression. PHYSICAL EXAMINATION: GENERAL: This is a slender, well-developed female who is in no acute distress. She is awake, alert, and oriented. VITAL SIGNS: Temperature 98.3, BP 178/91, respirations 18, heart rate 85. HEENT: Head is atraumatic. Extraocular movements grossly intact. Pupils reactive to light. No icterus. Oropharynx moist mucosa without lesions. NECK: Supple without adenopathy. LUNGS: Clear breath sounds. HEART: Regular S1 and S2 without murmurs, rubs or gallops appreciated. ABDOMEN: Bowel sounds present. Soft, mild tenderness at the lower abdomen diffusely. RECTAL: Not performed. EXTREMITIES: No clubbing, cyanosis or edema. SKIN: Ecchymotic areas of the upper extremities, both forearms. NEUROLOGIC: No gross focal findings. PSYCHIATRIC: The patient is calm and cooperative. LABORATORY DATA: WBC 11.5, platelets 387, neutrophils 70%, hemoglobin 8.9. Creatinine 1.82, BUN 18, sodium 131, estimated GFR of 33. WBC 11.0, platelets 281, hemoglobin 13.2, neutrophils 77%. Creatinine 0.70. Estimated GFR 84. Sodium 142. ASSESSMENT AND PLAN: 1. Sepsis indicated by altered mental status along with tachycardia and elevated white blood cell count and positive urinary tract infection with Pseudomonas. 2. ANTIBIOTIC ALLERGY TO PENICILLIN AND SULFA. The patient continues to have lower abdominal pain. However, her white blood cell count is improved and mental status is improved, indicating that she likely is responding appropriately to current antibiotic treatment with aztreonam. RECOMMENDATIONS: 1. Continue aztreonam. 2. Repeat the urine culture. 3. Monitor the ultrasound of the abdomen, which has been ordered. 4. Monitor response to treatment. 5. If she has hydronephrosis, we may want to consider doing a CAT scan. Will get Urology input. Thank you for this consultation. I will follow the patient's progress and make further recommendations upon followup. Felipe Galdamez MD FFD/kb , 03:07 PM , 03:26 PM
--- NOTE | 2018-05-28 16:06 | US ---
EXAM DATE: 05/28/2018 2:30 PM EDT AGE/SEX: 67 years / Female INDICATIONS: Urinary tract infection with sepsis and encephalopathy. CLINICAL DATA: This is the patient's initial encounter. Patient reports that signs and symptoms have been present for 3 days and indicates a pain score of 3/10. MEDICAL/SURGICAL HISTORY: Chronic obstructive pulmonary disease. Hypertension. Sepsis. Pulmo nary Hypertension. Back pain. Hysterectomy. Back surgery. COMPARISON: [facility] – [place], CT ABDOMEN & PELVIS W CONTRAST, 10/30/2015. . MEASUREMENTS: Right Kidney:__9.3 x 4.4 x 4.3 cm Left Kidney:__10.0 x 4.4 x 6.2 cm FINDINGS: Right Kidney: The right kidney is normal in size and shape. There are 2 simple cysts in the upper erika e measuring 3.6 x 2.7 x 2.7 cm and one in the lower pole measuring 4.5 x 2.6 x 2.1 cm. There is no ev idence of solid mass or hydronephrosis. Left Kidney: The left kidney is normal in size and shape. There is no focal mass or hydronephrosis. T here are no renal calculi. Bladder: Within normal limits given the degree of distension. Other: None. CONCLUSION: 1. Simple cysts in the right kidney with no evidence of solid lesion or hydronephrosis. Electronically signed by: Jose Maria Kilgore MD 05/28/2018 4:05 PM EDT
[2018-05-28] MEDS: Carvedilol 12.5 MG Tablet PO SCH (20:19)
[2018-05-28] MEDS ORDERED: Temazepam 15 MG Capsule PO ONE (22:28)
[2018-05-29] MEDS: Acetaminophen 325 MG Tablet PO PRN (05:44)
[2018-05-29] MEDS: Carvedilol 12.5 MG Tablet PO SCH ×2 (08:29→20:42)
[2018-05-29] MEDS: Senna/Docusate Sodium 8.6/50 MG Tablet PO SCH ×2 (08:29→20:42)
[2018-05-29] MEDS: Aspirin 325 MG Tablet PO SCH (08:29)
[2018-05-29] MEDS: Insulin NovoLOG Aspart Correctional Sugar Inj SQ SCH ×4 (08:30→22:15)
--- NOTE | 2018-05-29 11:12 | P.PN ---
Subjective Interval history: awake and alert, voiding -- denies any dysuria complains on back pain0 states chronic , baseline uses a walker Physical Exam Vital signs: Vital Signs 05/28/18 12:00 05/28/18 16:00 05/28/18 20:47 Temperature 98.3 F 97.6 F 97.1 F L Pulse Rate 85 98 H 95 H Respiratory Rate 18 18 18 Blood Pressure 178/91 H 180/99 H 149/93 H Pulse Oximetry 100 100 99 05/28/18 21:45 05/29/18 00:00 05/29/18 04:00 Temperature 98 F 97.5 F L Pulse Rate 72 60 Respiratory Rate 18 16 18 Blood Pressure 146/89 H 150/90 H Pulse Oximetry 99 98 05/29/18 08:00 Temperature 97.6 F Pulse Rate 64 Respiratory Rate 12 Blood Pressure 121/89 Pulse Oximetry 99 Intake & Output 05/28/18 05/29/18 05/29/18 18:59 06:59 18:59 Intake Total 1200 / 1200 1100 / 1100 Output Total 1300 / 1300 Balance -100 / -100 1100 / 1100 Weight 58.3 kg Intake: IV 1200 / 1200 1100 / 1100 NS Inj 1,000 ML @ 70 mls/hr IV. 1000 / 1000 1000 / 1000 CONT .[id number] BAUDILIO Rx#:[id number] Azactam Inj 1,000 MG In NS Inj 100 / 100 100 / 100 100 ML @ 200 mls/hr IV.SIG Q8H BAUDILIO Rx#:[id number] Rocephin Inj 1,000 MG In NS Inj 100 / 100 100 ML @ 200 mls/hr IV.SIG Q24H BAUDILIO Rx#:[id number] Output: Urine 350 / 350 Urine Amount (Catheter) 950 / 950 Indwelling Urethral Catheter 950 / 950 Other: Post Void Residual 214 # Voids 2 Date of Last Bowel Movement 05/28/18 05/28/18 # Bowel Movements 2 Narrative: awake and alert, oriented x 3, able to give good history Regular rate and rhythm Clear to auscultation. Breath sounds equal bilaterally. No wheezes, rales, or rhonchi. Abdomen soft, non-tender, nondistended. Normal active bowel sounds, no CVA tenderness Extremities without clubbing, cyanosis, or edema. Alert and in awake to person place x 3, CN intact, brandon 5/5 all extremities up and ambulated with a walker - Urinary Catheter Management Indwelling Urethral Catheter Cath placed during this visit: yes, but has since been removed by the nurse Reason for continuing: Hourly intake/output Insertion date: 05/25/18 Insertion time: 21:00 Removal date: 05/28/18 Removal time: 12:24 Results - Labs CBC & Chem 7: 05/27/18 07:21 05/27/18 07:21 Laboratory Results - last 24 hr 05/28/18 05/28/18 05/29/18 16:00 19:49 07:53 POC Glucose 87 145 H 114 H Microbiology 05/25/18 20:25 Blood - Peripheral Aerobic Blood Culture - Preliminary No growth in 3 days 05/25/18 20:25 Blood - Peripheral Anaerobic Blood Culture - Preliminary No growth in 3 days 05/25/18 20:30 Blood - Peripheral Aerobic Blood Culture - Preliminary No growth in 3 days 05/25/18 20:30 Blood - Peripheral Anaerobic Blood Culture - Preliminary No growth in 3 days 05/25/18 21:30 Clean Catch Urine Urine Culture - Final Pseudomonas aeruginosa - Imaging Impressions Head MRI 05/27/18 00:00 CONCLUSION: 1. No acute hemorrhage, mass or evidence of infarction. 2. Chronic small vessel ischemic changes. Head MRA 05/27/18 00:00 CONCLUSION: 1. Negative exam. Abdomen/Bladder Ultrasound 05/28/18 00:00 CONCLUSION: 1. Simple cysts in the right kidney with no evidence of solid lesion or hydronephrosis. Assessment and Plan - Plan 67 years old female Altered MS multifactorial secondary to sepsis/HTN encephalopathy - MS resolved- l Sepsis criteria secondary to UTI- Pseudomonas on culture History of recurrent UTI Leukocytosis - imrpoved -DC Rocephin and Levaquin- resistant -ULtrasound of the bladder, kidneys- negative, no hydronephrosis - may need urodynamic studies as OP- states frequent UTIs - start Azactam 1 gm q 8- PCN allergy- severe hives per report- ID ff - DC brown- check voiding, consider urology consult - repeat UA- get a straight cath specimen hypertensive encephalopathy - MS improved - BP better CMP- EF 45%- clinically not in failure Head CT negative for acute process Urine toxicology screen negative Acetaminophen, salicylates negative Concern for Benadryl overdose given patient takes Benadryl and Excedrin PM regularly. The patient's cannot quantify an amount. Poison control contacted out of concern for Benadryl overdose MRI of the brain - negative Nicardipine drip weaned off now on Procardia XL 60 mg p.o. daily review old visits- at one point was on Procardia, BB, Hydralazine on review of 2017 visit- monitor patient states ran ourt of meds- because she lost insurance- now got me[place]icaid started Coreg for additional BP control- low EF continue to monitor and adjust meds Chronic neck and back pain will start Tylenol and Flexeril as needed. - pt consult - sounds like she was ff by pain management as OP at one point states hisotyr of PUD- on Zegerid - start po PPI DVT prophylaxisheparin Discharge Planning: CM consult- needs a PCP May need home with home health care based on clinical status upon discharge.
[2018-05-29] MEDS: Heparin - SQ 10,000 UNITS/ML Vial SQ SCH ×2 (12:23→23:31)
[2018-05-29] MEDS: traMADol/Acetaminophen 37.5/325 MG Tablet PO PRN ×3 (12:23→23:31)
[2018-05-29] MEDS: Sod Chloride 0.9% Inj 1,000 ML IV.CONT SCH (14:51)
[2018-05-29 16:09] LABS: Bilirubin,Urine Negative (Negative); Clarity,Urine Clear (Clear); Color,Urine Yellow (Yellw/Straw); Glucose,Urine (UA) Negative (Negative); Leukocyte Esterase,Urine Small (Negative); Mucus,Urine Few /lpf (Occasional); Nitrite,Urine Negative (Negative); Specific Gravity,Urine 1.006 (1.002-1.035); Squamous Epithelial Cell,Urine 1 /hpf (0-5)
[2018-05-30] MEDS: traMADol/Acetaminophen 37.5/325 MG Tablet PO PRN ×3 (05:32→18:32)
[2018-05-30] MEDS: Sod Chloride 0.9% Inj 1,000 ML IV.CONT SCH ×2 (05:35→18:31)
[2018-05-30] MEDS: Carvedilol 12.5 MG Tablet PO SCH ×2 (08:39→20:56)
[2018-05-30] MEDS: Aspirin 325 MG Tablet PO SCH (08:39)
[2018-05-30] MEDS: Insulin NovoLOG Aspart Correctional Sugar Inj SQ SCH ×4 (08:40→20:58)
[2018-05-30] MEDS: Senna/Docusate Sodium 8.6/50 MG Tablet PO SCH ×2 (08:40→21:11)
--- NOTE | 2018-05-30 09:30 | P.PN ---
Subjective Interval history: having loose stools per patient chronic on and off good po brown draining- very clear urine requesting for something for sleep tonight Physical Exam Vital signs: Vital Signs 05/29/18 12:00 05/29/18 16:00 05/29/18 20:00 Temperature 97.2 F L 97.6 F 98 F Pulse Rate 65 68 81 Respiratory Rate 14 14 18 Blood Pressure 167/93 H 159/89 H 167/95 H Pulse Oximetry 99 97 100 05/30/18 00:00 05/30/18 04:00 Temperature 98 F 98.1 F Pulse Rate 71 77 Respiratory Rate 18 18 Blood Pressure 148/82 H 170/95 H Pulse Oximetry 98 98 Intake & Output 05/29/18 05/30/18 05/30/18 18:59 06:59 18:59 Intake Total 1100 / 1100 1300 / 1300 Output Total 600 / 600 1404 / 1404 Balance 500 / 500 -104 / -104 Weight 58.3 kg Intake: IV 1100 / 1100 1300 / 1300 NS Inj 1,000 ML @ 70 mls/hr IV. 1000 / 1000 1000 / 1000 CONT .[id number] BAUDILIO Rx#:[id number] Azactam Inj 1,000 MG In NS Inj 100 / 100 300 / 300 100 ML @ 200 mls/hr IV.SIG Q8H BAUDILIO Rx#:[id number] Output: Urine 1400 / 1400 Stool 4 / 4 Urine Amount (Catheter) 600 / 600 Indwelling Urethral Catheter 600 / 600 Other: Date of Last Bowel Movement 05/28/18 05/30/18 05/30/18 # Bowel Movements 3 4 Narrative: awake and alert, oriented x 3, no distress, interactive Regular rate and rhythm Clear to auscultation. Breath sounds equal bilaterally. No wheezes, rales, or rhonchi. Abdomen soft, non-tender, nondistended. Normal active bowel sounds, no CVA tenderness Extremities without clubbing, cyanosis, or edema. Alert and in awake to person place x 3, CN intact, brandon 5/5 all extremities brown in place- draining clear urine up and ambulated with a walker - Urinary Catheter Management Indwelling Urethral Catheter Cath placed during this visit: yes, but has since been removed by the nurse Urethral indwelling: Yes Reason for continuing: Chronic Urinary Retention Insertion date: 05/29/18 Insertion time: 16:20 Removal date: 05/28/18 Removal time: 12:24 Results - Labs CBC & Chem 7: 05/27/18 07:21 05/30/18 11:09 Laboratory Results - last 24 hr 05/29/18 05/29/18 05/29/18 11:31 15:00 16:40 POC Glucose 164 H 117 H Urine Color Yellow Urine Clarity Clear Urine pH 6.0 Ur Specific [place] 1.006 Urine Protein Negative Urine Glucose (UA) Negative Urine Ketones Negative Urine Occult Blood Negative Urine Nitrate Negative Urine Bilirubin Negative Urine Urobilinogen Less than 2 Ur Leukocyte Esterase Small H Urine RBC 1 Urine WBC 1 Ur Squamous Epith Cells 1 Urine Mucus Few H Micro UA Comment Culture not ind Urine Culture Comments Culture not ind Stl C.difficile Tox PCR St C. diff Tox Epid 027 05/29/18 05/30/18 05/30/18 22:12 07:30 Unknown POC Glucose 116 H 109 Urine Color Urine Clarity Urine pH Ur Specific [place] Urine Protein Urine Glucose (UA) Urine Ketones Urine Occult Blood Urine Nitrate Urine Bilirubin Urine Urobilinogen Ur Leukocyte Esterase Urine RBC Urine WBC Ur Squamous Epith Cells Urine Mucus Micro UA Comment Urine Culture Comments Stl C.difficile Tox PCR Positive H St C. diff Tox Epid 027 Negative Microbiology 05/25/18 20:25 Blood - Peripheral Aerobic Blood Culture - Preliminary No growth in 3 days 05/25/18 20:25 Blood - Peripheral Anaerobic Blood Culture - Preliminary No growth in 3 days 05/25/18 20:30 Blood - Peripheral Aerobic Blood Culture - Preliminary No growth in 3 days 05/25/18 20:30 Blood - Peripheral Anaerobic Blood Culture - Preliminary No growth in 3 days Assessment and Plan - Plan 67 years old female Altered MS multifactorial secondary to sepsis/HTN encephalopathy - MS resolved- Sepsis criteria secondary to UTI- Pseudomonas on culture History of recurrent UTI Leukocytosis - imrpoved -DC Rocephin and Levaquin- resistant -ULtrasound of the bladder, kidneys- negative, no hydronephrosis - may need urodynamic studies as OP- states frequent UTIs - start Azactam 1 gm q 8- PCN allergy- severe hives per report- ID ff - repeat UA improved - Urinary retention - ? neurogenic bladder ? - consider urology consult - will need urodynamic studies - failed voiding trial- started on Flomax 0.4 mg hs 05/29 - DC brown in 3 days hypertensive encephalopathy -MS improved CMP- EF 45%- clinically not in failure Head CT negative for acute process Urine toxicology screen negative Acetaminophen, salicylates negative Concern for Benadryl overdose given patient takes Benadryl and Excedrin PM regularly. The patient's cannot quantify an amount. Poison control contacted out of concern for Benadryl overdose MRI of the brain - negative Nicardipine drip weaned off now on Procardia XL 60 mg p.o. daily review old visits- at one point was on Procardia, BB, Hydralazine on review of 2017 visit- monitor patient states ran ourt of meds- because she lost insurance- now got meidicaid started Coreg for additional BP control- low EF- increae to 50 mg po bid continue to monitor and adjust meds + C diff diarrhea - 05/30- stools + c diff - started on Vancomycin 125 mg po qid- increase to 250 mg po qid - check BMP- electrolytes Chronic neck and back pain will start Tylenol and Flexeril as needed. - pt consult - sounds like she was ff by pain management as OP at one point Hypokalemia - replace IV and po - recheck in am states hisotyr of PUD- on Zegerid - started on po PPI DVT prophylaxisheparin Discharge Planning: CM consult- needs a PCP May need home with home health care based on clinical status upon discharge.
[2018-05-30 12:09] LABS: Calcium 8.6 mg/dL (8.5-10.1)
[2018-05-30 12:18] LABS: Potassium 2.9 meq/L (3.5-5.1)
[2018-05-30] MEDS: Heparin - SQ 10,000 UNITS/ML Vial SQ SCH (12:25)
[2018-05-30] MEDS: Potassium Chlor 10 mEq Premix 10 MEQ/100 ML PIGGYBACK IV.SIG SCH ×3 (15:32→18:32)
[2018-05-31] MEDS: traMADol/Acetaminophen 37.5/325 MG Tablet PO PRN ×3 (02:10→14:42)
[2018-05-31] MEDS: Heparin - SQ 10,000 UNITS/ML Vial SQ SCH ×2 (02:11→12:34)
[2018-05-31] MEDS: Aspirin 325 MG Tablet PO SCH (08:39)
[2018-05-31] MEDS: Carvedilol 12.5 MG Tablet PO SCH (08:40)
[2018-05-31] MEDS: Senna/Docusate Sodium 8.6/50 MG Tablet PO SCH (08:40)
[2018-05-31] MEDS: Insulin NovoLOG Aspart Correctional Sugar Inj SQ SCH ×2 (08:41→12:34)
[2018-05-31] MEDS: Sod Chloride 0.9% Inj 1,000 ML IV.CONT SCH (08:41)
[2018-05-31 09:34] LABS: Baso % (Auto) 0.5 % (0.0-2.0); Eos # (Auto) 0.3 th/mm3 (0.0-0.4); Eos % (Auto) 4.3 % (0.0-4.0); Hematocrit 35.3 % (35.0-46.0); Hemoglobin 11.4 gm/dL (11.6-15.3); Lymph # (Auto) 2.6 th/mm3 (1.0-4.8); Lymph % (Auto) 41.1 % (9.0-44.0); Mean Corpuscular HGB Conc 32.3 % (32.0-36.0); Mean Corpuscular Hemoglobin 27.2 pg (27.0-34.0); Mean Corpuscular Volume 84.1 fL (80.0-100.0); Mean Platelet Volume 8.3 fL (7.0-11.0); Mono # (Auto) 0.3 th/mm3 (0.0-0.9); Mono % (Auto) 5.2 % (0.0-8.0); Neut # (Auto) 3.1 th/mm3 (1.8-7.7); Neut % (Auto) 48.9 % (16.0-70.0); Platelet Count 297 th/mm3 (150-450); Red Blood Count 4.19 mil/mm3 (4.00-5.30); Red Cell Distribution Width 18.2 % (11.6-17.2); White Blood Count 6.4 th/mm3 (4.0-11.0)
[2018-05-31 10:07] LABS: Albumin 3.1 g/dL (3.4-5.0); Anion Gap 7 meq/L (5-15); Aspartate Aminotransferase 14 U/L (15-37); Blood Urea Nitrogen 7 mg/dL (7-18); Carbon Dioxide 24.7 meq/L (21.0-32.0); Chloride 111 meq/L (98-107); Glomerular Filtration Rate 80 mL/min (>89); Glucose,Random 84 mg/dL (74-106); Potassium 4.1 meq/L (3.5-5.1); Sodium 143 meq/L (136-145)
[2018-05-31 10:08] LABS: Alanine Aminotransferase 18 U/L (10-53)
[2018-05-31 10:12] LABS: Alkaline Phosphatase 103 U/L (45-117); Total Protein 6.4 g/dL (6.4-8.2)
--- NOTE | 2018-05-31 14:41 | P.PNID ---
Subjective Remarks: Patient feels oaky. Events of last few days noted No fever. Has positive c. diff. Notes that she had one BM loose today. No abdominal cramps. Alert and oriented. Up in bedside chair. UA 05/29 unremarkable. Has brown catheter - clear urine. This is a 67-year-old white female who was brought to the emergency department after she was found with altered mental status at home. The patient was evaluated on the evening of 05/25/2018. Reportedly, the patient's came home and found her to be with altered mental status with agitation and would not answer any questions except with yes/no answers. ID consulted for UTI. Past Medical History: PAST MEDICAL HISTORY: Hypertension, COPD, empyema, anxiety disorder, back pain, history of respiratory failure, history of hysterectomy, history of back surgery. Allergies/Adverse Reactions: Allergies penicillin G Allergy (Intermediate, Verified 05/26/18 07:47) Hives Sulfa (Sulfonamide Antibiotics) Allergy (Unknown, Verified 05/26/18 07:47) Hives Objective Vital Signs 05/30/18 16:00 05/30/18 20:00 05/30/18 23:07 Temperature 97.1 F L 98.1 F 97.6 F Pulse Rate 75 78 76 Respiratory Rate 14 18 18 Blood Pressure 131/78 142/75 H 141/72 H Pulse Oximetry 96 99 96 05/31/18 04:00 05/31/18 08:00 05/31/18 12:00 Temperature 98.1 F 97.5 F L 98.1 F Pulse Rate 65 68 66 Respiratory Rate 18 20 20 Blood Pressure 134/71 160/85 H 124/71 Pulse Oximetry 98 99 95 Intake & Output 05/30/18 05/31/18 05/31/18 18:59 06:59 18:59 Intake Total 1300 / 1300 300 / 300 1000 / 1000 Output Total 1200 / 1200 1900 / 1900 700 / 700 Balance 100 / 100 -1600 / -1600 300 / 300 Weight 58.1 kg Intake: IV 1300 / 1300 300 / 300 1000 / 1000 NS Inj 1,000 ML @ 70 mls/hr IV. 1000 / 1000 1000 / 1000 CONT .[id number] BAUDILIO Rx#:[id number] Azactam Inj 1,000 MG In NS Inj 100 / 100 200 / 200 100 ML @ 200 mls/hr IV.SIG Q8H BAUDILIO Rx#:[id number] KCl 10 mEq Premix Inj 10 meq In 200 / 200 100 / 100 100 ml @ 100 mls/hr IV.SIG Q1H BAUDILIO Rx#:[id number] Output: Urine 1900 / 1900 700 / 700 Urine Amount (Catheter) 1200 / 1200 Indwelling Urethral Catheter 1200 / 1200 Other: Date of Last Bowel Movement 05/30/18 05/30/18 05/30/18 # Bowel Movements 2 05/25/18 20:25 Blood - Peripheral Aerobic Blood Culture - Final No growth in 5 days 05/25/18 20:25 Blood - Peripheral Anaerobic Blood Culture - Final No growth in 5 days 05/25/18 20:30 Blood - Peripheral Aerobic Blood Culture - Final No growth in 5 days 05/25/18 20:30 Blood - Peripheral Anaerobic Blood Culture - Final No growth in 5 days Lab - Hematology Results 05/31/18 08:47 WBC 6.4 RBC 4.19 Hgb 11.4 L Hct 35.3 MCV 84.1 MCH 27.2 MCHC 32.3 RDW 18.2 H Plt Count 297 MPV 8.3 Neut % (Auto) 48.9 Lymph % (Auto) 41.1 [place] % (Auto) 5.2 Eos % (Auto) 4.3 H Baso % (Auto) 0.5 Neut # (Auto) 3.1 Lymph # (Auto) 2.6 [place] # (Auto) 0.3 Eos # (Auto) 0.3 Baso # (Auto) 0.0 WBC Differential . Differential Comment Auto diff final Lab - Chemistry Results 05/29/18 05/29/18 05/30/18 16:40 22:12 07:30 Sodium Potassium Chloride Carbon Dioxide Anion Gap BUN Creatinine Estimated GFR POC Glucose 117 H 116 H 109 Random Glucose Calcium Total Bilirubin AST ALT Alkaline Phosphatase Total Protein Albumin 05/30/18 05/30/18 05/30/18 11:09 11:18 16:42 Sodium 144 Potassium 2.9 L* Chloride 113 H Carbon Dioxide 22.0 Anion Gap 9 BUN 7 Creatinine 0.71 Estimated GFR 83 L POC Glucose 224 H 113 H Random Glucose 105 Calcium 8.6 Total Bilirubin AST ALT Alkaline Phosphatase Total Protein Albumin 05/30/18 05/31/18 05/31/18 20:55 07:33 08:47 Sodium 143 Potassium 4.1 D Chloride 111 H Carbon Dioxide 24.7 Anion Gap 7 BUN 7 Creatinine 0.73 Estimated GFR 80 L POC Glucose 108 224 H Random Glucose 84 Calcium 9.0 Total Bilirubin 0.2 AST 14 L ALT 18 Alkaline Phosphatase 103 Total Protein 6.4 D Albumin 3.1 L 05/31/18 11:47 Sodium Potassium Chloride Carbon Dioxide Anion Gap BUN Creatinine Estimated GFR POC Glucose 105 Random Glucose Calcium Total Bilirubin AST ALT Alkaline Phosphatase Total Protein Albumin Imaging: ITS Impressions Chest X-Ray 05/25/18 20:32 CONCLUSION: No definite acute abnormality is seen. There is chronic linear density at the right upper lung and old left rib fractures. Head CT 05/25/18 20:32 CONCLUSION: 1. No acute intracranial abnormality is seen. 2. Surgical screw seen through the dens with some lucency seen around the screw. . Carotid Doppler Study 05/26/18 00:00 CONCLUSION: No significant stenosis is seen. Head MRI 05/27/18 00:00 CONCLUSION: 1. No acute hemorrhage, mass or evidence of infarction. 2. Chronic small vessel ischemic changes. Head MRA 05/27/18 00:00 CONCLUSION: 1. Negative exam. Abdomen/Bladder Ultrasound 05/28/18 00:00 CONCLUSION: 1. Simple cysts in the right kidney with no evidence of solid lesion or hydronephrosis. Physical Exam: GENERAL: No apparent distress. HEENT: Head is atraumatic. Extraocular movements grossly intact. Pupils reactive to light. No icterus. Oropharynx moist mucosa without lesions. NECK: Supple without adenopathy. LUNGS: Clear breath sounds. HEART: Regular S1 and S2 without murmurs, rubs or gallops appreciated. ABDOMEN: Bowel sounds present. Soft, non tender. EXTREMITIES: No clubbing, cyanosis or edema. SKIN: Ecchymotic areas of the upper extremities at both forearms. NEUROLOGIC: No gross focal findings. PSYCHIATRIC: Calm and cooperative. Assessment and Plan - Plan ASSESSMENT AND PLAN: - Sepsis indicated by altered mental status along with tachycardia and elevated white blood cell count and positive urinary tract infection with Pseudomonas. - ANTIBIOTIC ALLERGY TO PENICILLIN AND SULFA. - C diff colitis. Stable. RECOMMENDATIONS: - Stop aztreonam. - Continue PO Vancomycin for c. diff x 10 days. Stable for discharge for ID standpoint.
--- NOTE | 2018-05-31 15:13 | P.PN ---
Subjective Interval history: awake and alert, good po no furthoer diarrhea- x1 stols this am semi formed no vomitng wanting to go home Physical Exam Vital signs: Vital Signs 05/30/18 16:00 05/30/18 20:00 05/30/18 23:07 Temperature 97.1 F L 98.1 F 97.6 F Pulse Rate 75 78 76 Respiratory Rate 14 18 18 Blood Pressure 131/78 142/75 H 141/72 H Pulse Oximetry 96 99 96 05/31/18 04:00 05/31/18 08:00 05/31/18 12:00 Temperature 98.1 F 97.5 F L 98.1 F Pulse Rate 65 68 66 Respiratory Rate 18 20 20 Blood Pressure 134/71 160/85 H 124/71 Pulse Oximetry 98 99 95 Intake & Output 05/30/18 05/31/18 05/31/18 18:59 06:59 18:59 Intake Total 1300 / 1300 300 / 300 1000 / 1000 Output Total 1200 / 1200 1900 / 1900 700 / 700 Balance 100 / 100 -1600 / -1600 300 / 300 Weight 58.1 kg Intake: IV 1300 / 1300 300 / 300 1000 / 1000 NS Inj 1,000 ML @ 70 mls/hr IV. 1000 / 1000 1000 / 1000 CONT .[id number] [facility] Rx#:[id number] Azactam Inj 1,000 MG In NS Inj 100 / 100 200 / 200 100 ML @ 200 mls/hr IV.SIG Q8H [facility]IO Rx#:[id number] KCl 10 mEq Premix Inj 10 meq In 200 / 200 100 / 100 100 ml @ 100 mls/hr IV.SIG Q1H [facility] Rx#:[id number] Output: Urine 1900 / 1900 700 / 700 Urine Amount (Catheter) 1200 / 1200 Indwelling Urethral Catheter 1200 / 1200 Other: Date of Last Bowel Movement 05/30/18 05/30/18 05/30/18 # Bowel Movements 2 Narrative: awake and alert, oriented x 3, no distress, interactive Regular rate and rhythm Clear to auscultation. Breath sounds equal bilaterally. No wheezes, rales, or rhonchi. Abdomen soft, non-tender, nondistended. Normal active bowel sounds, no CVA tenderness Extremities without clubbing, cyanosis, or edema. Alert and in awake to person place x 3, CN intact, motor 5/5 all extremities brown in place- draining clear urine up and ambulated with a walker - Urinary Catheter Management Indwelling Urethral Catheter Cath placed during this visit: yes, but has since been removed by the nurse Urethral indwelling: Yes Reason for continuing: Chronic Urinary Retention Insertion date: 05/29/18 Insertion time: 16:20 Removal date: 05/28/18 Removal time: 12:24 Results - Labs CBC & Chem 7: 05/31/18 08:47 05/31/18 08:47 Laboratory Results - last 24 hr 05/30/18 05/30/18 05/31/18 16:42 20:55 07:33 WBC RBC Hgb Hct MCV MCH MCHC RDW Plt Count MPV Neut % (Auto) Lymph % (Auto) [place] % (Auto) Eos % (Auto) Baso % (Auto) Neut # (Auto) Lymph # (Auto) [place] # (Auto) Eos # (Auto) Baso # (Auto) WBC Differential Differential Comment Sodium Potassium Chloride Carbon Dioxide Anion Gap BUN Creatinine Estimated GFR POC Glucose 113 H 108 224 H Random Glucose Calcium Total Bilirubin AST ALT Alkaline Phosphatase Total Protein Albumin 05/31/18 05/31/18 05/31/18 08:47 08:47 11:47 WBC 6.4 RBC 4.19 Hgb 11.4 L Hct 35.3 MCV 84.1 MCH 27.2 MCHC 32.3 RDW 18.2 H Plt Count 297 MPV 8.3 Neut % (Auto) 48.9 Lymph % (Auto) 41.1 [place] % (Auto) 5.2 Eos % (Auto) 4.3 H Baso % (Auto) 0.5 Neut # (Auto) 3.1 Lymph # (Auto) 2.6 [place] # (Auto) 0.3 Eos # (Auto) 0.3 Baso # (Auto) 0.0 WBC Differential . Differential Comment Auto diff final Sodium 143 Potassium 4.1 D Chloride 111 H Carbon Dioxide 24.7 Anion Gap 7 BUN 7 Creatinine 0.73 Estimated GFR 80 L POC Glucose 105 Random Glucose 84 Calcium 9.0 Total Bilirubin 0.2 AST 14 L ALT 18 Alkaline Phosphatase 103 Total Protein 6.4 D Albumin 3.1 L Microbiology 05/25/18 20:25 Blood - Peripheral Aerobic Blood Culture - Final No growth in 5 days 05/25/18 20:25 Blood - Peripheral Anaerobic Blood Culture - Final No growth in 5 days 05/25/18 20:30 Blood - Peripheral Aerobic Blood Culture - Final No growth in 5 days 05/25/18 20:30 Blood - Peripheral Anaerobic Blood Culture - Final No growth in 5 days Assessment and Plan - Plan 67 years old female Altered MS multifactorial secondary to sepsis/HTN encephalopathy - MS resolved- Sepsis criteria secondary to UTI- Pseudomonas on culture History of recurrent UTI Leukocytosis - imrpoved -DC Rocephin and Levaquin- resistant -ULtrasound of the bladder, kidneys- negative, no hydronephrosis - may need urodynamic studies as OP- states frequent UTIs - start Azactam 1 gm q 8- PCN allergy- severe hives per report- ID ff -- completed 5 dfays course- DC today per ID - Urinary retention - ? neurogenic bladder ? - consider urology consult - will need urodynamic studies - failed voiding trial- started on Flomax 0.4 mg hs 05/29 - DC brown in 3 days -DC brown today- check voiding -OP ff up with a PCP- urolgy referral; hypertensive encephalopathy -MS improved CMP- EF 45%- clinically not in failure Head CT negative for acute process Urine toxicology screen negative Acetaminophen, salicylates negative Concern for Benadryl overdose given patient takes Benadryl and Excedrin PM regularly. The patient's cannot quantify an amount. Poison control contacted out of concern for Benadryl overdose MRI of the brain - negative Nicardipine drip weaned off now on Procardia XL 60 mg p.o. daily review old visits- at one point was on Procardia, BB, Hydralazine on review of 2017 visit- monitor patient states ran ourt of meds- because she lost insurance- now got [place]icaid started Coreg for additional BP control- low EF- increae to 50 mg po bid continue to monitor and adjust meds + C diff diarrhea - 05/30- stools + c diff - started on Vancomycin 125 mg po qid- increase to 250 mg po qid x 10 days - Chronic neck and back pain will start Tylenol and Flexeril as needed. - pt consult - sounds like she was ff by pain management as OP at one point Hypokalemia - replace IV and po - recheck in am states hisotyr of PUD- on Zegerid - started on po PPI DVT prophylaxisheparin Discharge Planning: CM consult- needs a PCP May need home with home health care based on clinical status upon discharge.
--- NOTE | 2018-05-31 15:29 | P.DS ---
Date of admission: 05/25/18 22:51 Primary care physician: No Primary Care Physician Anticipated date of discharge: 05/31/18 Brief History from admission: 67-year-old female presents to the emergency department for the evaluation of altered mental status and severe agitation. History is obtained from the patient's . He reports that yesterday, when he came home from work that she was more agitated than usual and moving from the bed to the living room and back several times. She was able to speak in complete sentences and assured him that nothing was wrong. He stated up with her all night because she was too agitated to sleep. The patient then assured her that she would be okay while he went to work. Upon returning home from work today the patient was found in her bed. The reports that she would only answer questions with yes or no. He states she was very agitated and had flopping motions of all her extremities. He called EMS at that time. Upon arrival to the hospital , the patient was no longer answering questions. At the time of our interview, she will not track to voice or respond to me in any way. She is severely agitated with constant movement of all 4 extremities. She is in 4 point restraints. Per the , the patient takes "a lot" of Benadryl and Excedrin PM. He is unable to tell me exactly how much she has taken in the last 24 hours. He states she is a very private person. DS: Medications - Discharge Medications Prescriptions: aspirin 325 mg PO DAILY #90 tab carvedilol [Coreg] 50 mg PO BID 30 Days #240 tab nifedipine 60 mg PO DAILY #90 tab tamsulosin 0.4 mg PO DAILY #30 cap tramadol-acetaminophen 1 tab PO Q8HR PRN #30 tab PRN Reason: pain 4-10 vancomycin 250 mg PO QID 10 Days #20 tab DS: Summary Hospital Course: 67 years old female Altered MS multifactorial secondary to sepsis/HTN encephalopathy - MS resolved- Sepsis criteria secondary to UTI- Pseudomonas on culture History of recurrent UTI Leukocytosis - imrpoved -DC Rocephin and Levaquin- resistant -ULtrasound of the bladder, kidneys- negative, no hydronephrosis - may need urodynamic studies as OP- states frequent UTIs - start Azactam 1 gm q 8- PCN allergy- severe hives per report- ID ff -- completed 5 dfays course- DC today per ID - Urinary retention - ? neurogenic bladder ? - consider urology consult - will need urodynamic studies - failed voiding trial- started on Flomax 0.4 mg hs 05/29 - DC brown today - check voiding -OP ff up with a PCP- urolgy referral; hypertensive encephalopathy -MS improved CMP- EF 45%- clinically not in failure Head CT negative for acute process Urine toxicology screen negative Acetaminophen, salicylates negative Concern for Benadryl overdose given patient takes Benadryl and Excedrin PM regularly. The patient's cannot quantify an amount. Poison control contacted out of concern for Benadryl overdose MRI of the brain - negative Nicardipine drip weaned off now on Procardia XL 60 mg p.o. daily review old visits- at one point was on Procardia, BB, Hydralazine on review of 2017 visit- monitor patient states ran ourt of meds- because she lost insurance- now got [place]icaid started Coreg for additional BP control- low EF- increae to 50 mg po bid continue to monitor and adjust meds + C diff diarrhea - 05/30- stools + c diff - started on Vancomycin 125 mg po qid- increase to 250 mg po qid x 10 days - Chronic neck and back pain will start Tylenol and Flexeril as needed. - pt consult - sounds like she was ff by pain management as OP at one point Hypokalemia - replace IV and po - recheck in am states hisotyr of PUD- on Zegerid - started on po PPI DVT prophylaxisheparin Discharge Planning: CM consult- needs a PCP - Time Spent with Patient Total time spent providing and/or coordinating discharge services: Greater than 30 minutes Exam Vital signs: Vital Signs 05/30/18 16:00 05/30/18 20:00 05/30/18 23:07 Temperature 97.1 F L 98.1 F 97.6 F Pulse Rate 75 78 76 Respiratory Rate 14 18 18 Blood Pressure 131/78 142/75 H 141/72 H Pulse Oximetry 96 99 96 05/31/18 04:00 05/31/18 08:00 05/31/18 12:00 Temperature 98.1 F 97.5 F L 98.1 F Pulse Rate 65 68 66 Respiratory Rate 18 20 20 Blood Pressure 134/71 160/85 H 124/71 Pulse Oximetry 98 99 95 Intake & Output 05/30/18 05/31/18 05/31/18 18:59 06:59 18:59 Intake Total 1300 / 1300 300 / 300 1000 / 1000 Output Total 1200 / 1200 1900 / 1900 700 / 700 Balance 100 / 100 -1600 / -1600 300 / 300 Weight 58.1 kg Intake: IV 1300 / 1300 300 / 300 1000 / 1000 NS Inj 1,000 ML @ 70 mls/hr IV. 1000 / 1000 1000 / 1000 CONT .[id number] [facility] Rx#:[id number] Azactam Inj 1,000 MG In NS Inj 100 / 100 200 / 200 100 ML @ 200 mls/hr IV.SIG Q8H [facility] Rx#:[id number] KCl 10 mEq Premix Inj 10 meq In 200 / 200 100 / 100 100 ml @ 100 mls/hr IV.SIG Q1H [facility] Rx#:[id number] Output: Urine 1900 / 1900 700 / 700 Urine Amount (Catheter) 1200 / 1200 Indwelling Urethral Catheter 1200 / 1200 Other: Date of Last Bowel Movement 05/30/18 05/30/18 05/30/18 # Bowel Movements 2 Results Procedures completed during hospitalization: none Labs on day of discharge: Labs from last 24 hours 05/31/18 05/31/18 05/31/18 11:47 08:47 08:47 WBC 6.4 RBC 4.19 Hgb 11.4 L Hct 35.3 MCV 84.1 MCH 27.2 MCHC 32.3 RDW 18.2 H Plt Count 297 MPV 8.3 Neut % (Auto) 48.9 Lymph % (Auto) 41.1 [place] % (Auto) 5.2 Eos % (Auto) 4.3 H Baso % (Auto) 0.5 Neut # (Auto) 3.1 Lymph # (Auto) 2.6 [place] # (Auto) 0.3 Eos # (Auto) 0.3 Baso # (Auto) 0.0 WBC Differential . Differential Comment Auto diff final Sodium 143 Potassium 4.1 D Chloride 111 H Carbon Dioxide 24.7 Anion Gap 7 BUN 7 Creatinine 0.73 Estimated GFR 80 L POC Glucose 105 Random Glucose 84 Calcium 9.0 Total Bilirubin 0.2 AST 14 L ALT 18 Alkaline Phosphatase 103 Total Protein 6.4 D Albumin 3.1 L 05/31/18 05/30/1818 07:33 20:55 16:42 WBC RBC Hgb Hct MCV MCH MCHC RDW Plt Count MPV Neut % (Auto) Lymph % (Auto) [place] % (Auto) Eos % (Auto) Baso % (Auto) Neut # (Auto) Lymph # (Auto) [place] # (Auto) Eos # (Auto) Baso # (Auto) WBC Differential Differential Comment Sodium Potassium Chloride Carbon Dioxide Anion Gap BUN Creatinine Estimated GFR POC Glucose 224 H 108 113 H Random Glucose Calcium Total Bilirubin AST ALT Alkaline Phosphatase Total Protein Albumin - Impressions ITS Impressions Chest X-Ray 05/25/18 20:32 CONCLUSION: No definite acute abnormality is seen. There is chronic linear density at the right upper lung and old left rib fractures. Head CT 05/25/18 20:32 CONCLUSION: 1. No acute intracranial abnormality is seen. 2. Surgical screw seen through the dens with some lucency seen around the screw. . Carotid Doppler Study 05/26/18 00:00 CONCLUSION: No significant stenosis is seen. Head MRI 05/27/18 00:00 CONCLUSION: 1. No acute hemorrhage, mass or evidence of infarction. 2. Chronic small vessel ischemic changes. Head MRA 05/27/18 00:00 CONCLUSION: 1. Negative exam. Abdomen/Bladder Ultrasound 05/28/18 00:00 CONCLUSION: 1. Simple cysts in the right kidney with no evidence of solid lesion or hydronephrosis. Discharge Plan - Discharge Disposition Patient Disposition: 01 Discharge Home - Discharge Condition Condition: Good - Discharge Order Discharge Orders: Discharge Order (Routine); Ordered 05/31/18 Ordered By: Yasmani Ellison - Discharge Details Anticipated Discharge Date: 05/31/18 - Physicians Team Primary Care Provider: Primary Care Marti,Maribell Attending Provider: Yasmani Ellison Other Providers: Sue House MD ; Michael Newton MD ; [facility] ; Felipe Galdamez MD
== END 2018-05-31 17:39 | disposition home or self-care (01) ==
LOC: NEPE 20:15 → NEDA 22:51 → NEDH 05-26 04:23 → N03 05-26 13:18 → N05 05-27 20:08
PROVIDERS: ADMIT Internal Medicine; ATTEND Internal Medicine
DX: A04.72 Enterocolitis due to Clostridium difficile, not specified as recurrent; I16.9 Hypertensive crisis, unspecified; N39.0 Urinary tract infection, site not specified; I27.20 Pulmonary hypertension, unspecified; F17.210 Nicotine dependence, cigarettes, uncomplicated; E87.6 Hypokalemia; Z88.0 Allergy status to penicillin; J44.9 Chronic obstructive pulmonary disease, unspecified; Z88.2 Allergy status to sulfonamides; I67.4 Hypertensive encephalopathy; M54.9 Dorsalgia, unspecified; Z78.1 Physical restraint status; A41.52 Sepsis due to Pseudomonas; G89.29 Other chronic pain; K27.9 Peptic ulcer, site unspecified, unspecified as acute or chronic, without hemorrhage or perforation; F41.9 Anxiety disorder, unspecified; I10 Essential (primary) hypertension; M54.2 Cervicalgia